=== PATIENT | male | born 1955 | race Caucasian/White ===

== ENCOUNTER 2018-01-14 06:58 | Day surgery (SDC) | payer OTHER, SELFPAY ==
[2018-01-14] VITALS (11 sets, daily range): BP systolic 90–139; BP diastolic 56–87; PULSE 47–60; RESP 12–18; TEMP 35.9–36.3; O2SAT 4–100; BMI 18.0
--- NOTE | 2018-01-14 08:18 | PCM.HP.STD ---
Problem List (1) Screening for intestinal cancer Status: Acute History of Present Illness Date of Admission: 01/14/18 The patient is a 62 year old M who presents for screening colonoscopy. His last colonoscopy was 10 years prior. He enjoys good health. He denies any change of bowel habits. No bright red blood per rectum or melena. No family history of colon cancer. Past Medical History Allergies No Known Allergies Allergy (Verified 01/14/18 07:14) Home Medications: Ambulatory Orders Medication Instructions Recorded Cholecalciferol (Vitamin D3) 2,000 unit PO DAILY 01/12/18 [Vitamin D3] Cyanocobalamin (Vitamin B-12) 3,000 mcg PO DAILY 01/12/18 [Vitamin B-12] Green Tea Nimmons Extract [Green Tea 150 mg PO DAILY 01/12/18 Extract] Multivitamin [Multiple Vitamins] 1 each PO DAILY 01/12/18 Surgical History: mastectomy - Lateral knee arthroscopy and meniscus repair Smoking Status: Never smoker Tobacco Use: Non-smoker Review of Systems Constitutional: Denies: Anorexia Eyes: Denies: Blurred vision HEENT: Denies: Difficulty Hearing Cardiovascular: Denies: Chest Pain, Claudication Respiratory: Denies: Cough Gastrointestinal: Denies: Abdominal Pain Genitourinary: Denies: Dysuria Musculoskeletal: Denies: Arm Pain VTE Information - Inpt Only VTE Present on Admission: No Patient Problems: Active and Suspected Problems Screening for intestinal cancer (Acute) - Physical Exam General: Alert, Oriented x3, Cooperative, No apparent distress HEENT: Atraumatic Oral: Moist Mucosa Neck: Supple Lungs: Clear to auscultation Cardiovascular: Regular rate, Regular Rhythm Abdomen: Bowel Sounds Present, Non Tender Extremities: No clubbing Skin: No rashes Musculoskeletal: No Tenderness to Palpation of Joints or Extremities Neurological: Cranial nerves II-XII grossly intact Vital Signs Temp Pulse Resp BP Pulse Ox 96.6 F L 60 12 116/81 H 100 01/14/18 07:16 01/14/18 07:16 01/14/18 07:16 01/14/18 07:16 01/14/18 07:16 Oxygen Delivery Method Room Air Weight: 125 lb 10.616 oz Body Mass Index (BMI) 18.0 Assessment/Plan All Active Problems Screening for intestinal cancer (Acute) I plan to proceed with colonoscopy with possible biopsy or polypectomy is indicated. He is aware the technique, benefits, risks, alternatives. We will proceed as noted. He does present via our open access program today. Primary care physician is Dr. Yrn Esteban M.D., F.A.C.S.
--- NOTE | 2018-01-14 08:40 | PCM.OPRPT ---
Problem List (1) Screening for intestinal cancer Status: Acute Report of Operation Date of Procedure: 01/14/18 Pre-Operative Diagnosis: Screening for intestinal cancer Post-Operative Diagnosis: Grade 2-3 internal hemorrhoids Surgery/Procedure Performed:: Colonoscopy Description of Surgical Findings:: .Informed consent was obtained. 62-year-old gent was taken to the endoscopy suite. He was placed in left lateral decubitus position. Throughout the procedure in aliquots he received total 100 mg Demerol and 4 mg of Versed as intravenous sedation. Digital rectal exam demonstrated at least 2+ internal hemorrhoids. The prostate was 1+ smooth. No mass lesions. Flexible colonoscope inserted and advanced quite tortuous sigmoid colon. The scope was advanced through the transverse colon with transabdominal pressure was advanced to the ascending colon and cecum. The cecum and ileocecal valve area was achieved. Bowel prep was good there was still liquid stool throughout the colon but that could be aspirated. The serum cecum ileocecal valve was inspected the scope was carefully withdrawn from the ascending transverse descending colon. Visualization of the descending sigmoid somewhat difficult due to the extreme tortuosity of the sigmoid colon. Did not see any gross mucosal defects. The scope could not be retroflexed within the rectum due to a small rectal pouch. Internal hemorrhoids noted at least 2+. Excess fluid and air was aspirated free the procedure was completed with the patient tolerating it well. Impression Grade 2 internal hemorrhoids without active bleeding. Tortuous sigmoid colon Previous colonoscopy was 10 years prior. Next colonoscopy for screening recommended in 10 years. Cc: Dr. Yrn Esteban M.D., F.A.C.S. The scope was inserted at 0825. The cecum was reached at 0831. The procedure was completed at 0838. Type of Anesthesia:: IV Sedation
== END 2018-01-14 11:07 | disposition home or self-care (01) ==
LOC: EN 06:59 → AC 07:00
PROVIDERS: Family Provider Family Medicine; PCP Family Medicine; Visit Provider Surgery
PROC: 0DJD8ZZ Inspection of Lower Intestinal Tract, Via Natural or Artificial Opening Endoscopic (ICD-10-PCS; CPT 45378; principal; 2018-01-14 07:55)
DX: Z12.11 Encounter for screening for malignant neoplasm of colon (principal); K64.8 Other hemorrhoids
CPT/HCPCS: 45378; 99152; 99153; J7120

== ENCOUNTER 2018-11-17 10:00 | Outpatient (RCR) | payer OTHER, SELFPAY ==
--- NOTE | 2018-11-01 07:07 | HP.PTEVAL_ITS ---
Patient's Visit Information CRISSY SALGADO is a 63 year old M referred to Physical Therapy by Dariel Chaidez MD with a diagnosis of R knee OA, R medial epicondylitis, L lateral epicondylitis. Date of Evaluation: 10/27/18 Physical Therapist: Todd Galvez DPT - Visit Plan Frequency: 2-3x /Week Duration: 4-6 Weeks Plan: Start with OKC quad and hip strengthening, progress gym exercises that are not painful. Add in wrist stretching, US, graston and progress to eccentric strengthening as tolerated. - Subjective Findings: Pt. is here today for his initial evaluation with diagnosis of R knee OA, R medial epicondylitis and L lateral epicondylitis. Pt. reports having similar elbow problems previously, but never this bad. Pt. 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 Pain extends to his wrists as well. Pt. has tried chiropractor, laser therapy and stretching. Pt. has beend stretchign for weeks now, with minimal change. Pt. also has had some mild knee pain, with xray showing degenerative changes (moderate) to his R knee. Pt. reprots increased pain with walking and gym exercises with his R knee. Pt. likes to work out at the gym and go on recreational walking. He is hopeful to reduce symptoms in order to get back to all of these activiteis without limitations. - Pain R medial elbow Pain Intensity (Out of 10): 3 Pain Intensity Range: 0, 6 L lateral elbow Pain Intensity (Out of 10): 2 Pain Intensity Range: 0, 6 R knee Pain Intensity (Out of 10): 1 Pain Intensity Range: 0, 3 - Objective POSTURE: Pt. has fairly normal posture in stance, slight FH with rounded shoulders. PALPATION: Pt. has some mild medial knee pain with palpation to femoral condyle. Pt. has pain at R medial epicondyle and along wrist flexor group and L lateral epicondyle. NEURO: Normal sensation and DTR. ROM: Pt. has tight bilateral wrist flexors and extensors both causing increased soreness. Pt. has good R knee ROM with mild increase in symptoms with end range ext and flexion. MMT: RLE- ankle 5/5 throughout; knee- ext 5-/5, flexion 5/5; hip- flexion 5-/5, abd 4+/5, ext 4+/5. Wrist strength- 5/5 throughout; R real estate photographer- 45#, L real estate photographer- 44#. - Goals Goal 1:: Pt. to be I with HEP. Goal Time Frame: 4-6 Weeks Goal 2:: Pt. to have full wrist ROM without increase in symptoms of B wrists. Goal Time Frame: 4-6 Weeks Goal 3:: Pt. to have increased R LE strength by 1/2 grade of all effected musculature. Goal Time Frame: 4-6 Weeks Goal 4:: Pt. to complete all gym exercises without increase in symptoms. Goal Time Frame: 4-6 Weeks Goal 5:: Pt. to be able to complete all UE ADLs without increase in symptoms. Goal Time Frame: 4-6 Weeks - Rehabilitation Potential Physical Therapy Diagnosis: Pt. has signs and symptoms consistent with R knee OA, R medial epicondylitis, L lateral epicondylitis. Pt. would benefit from PT to increased quad and hip strength with OKC and low load positioning, and decreased epicondylitis of B elbows. Rehabilitation Potential: Excellent - Anticipated Interventions Patient/Client Instruction: Educate patient on: Condition, Plan of Care, Risk Factors, Benefits of Fitness Program For the Purpose of:: To foster healthy habits, To improve decision making, To facilitate caregiver knowledge, To improve self management, To prevent re- injury, To improve ability to perform tasks related to life management, To improve tolerance to ADL's Therapeutic Exercise to Include: Strength training, Power training, Endurance training, Body mechanics, Postural training, Flexibilty training, Passive ROM, Active ROM, Dynamic Lumbar Stabilization, Scapular Strength/Stabilization For the Purpose of:: To decrease pain, To decrease swelling/inflammation, To increase ROM, To improve nutrient delivery to tissue, To increase oxygenation perfusion, To improve muscle performance and motor function, To improve ability to perform ADL's, To improve health of tissue, To decrease soft tissue restriction, To increase flexibility/ROM, To improve endurance Manual Therapy Techniques to Include: Trigger point massage, Mobilization, Functional dry needling, Soft tissue mobilization For the Purpose of:: To decrease pain, To decrease swelling/inflammation, To increase ROM, To improve nutrient delivery to tissue, To decrease soft tissue restriction, To increase flexibility/ROM IF ES: Yes Ultrasound (thermal/non thermal): Yes For the Purpose of:: To decrease pain, To decrease swelling/inflammation, To increase ROM, To improve nutrient delivery to tissue, To improve muscle performance and motor function Thank you for the opportunity to evaluate your patient. For Medicare and Medicare HMO plans, please review the plan of care and approve it. It will need to be FAXED BACK to us at [phone] for Medicare purposes. For Medicare only, by signing this I certify the plan of care. Please let me know if there are questions or concerns regarding this plan of care. Physician Signature: Date:
--- NOTE | 2018-11-21 10:03 | HP.PTDCSUM ---
HP - PT D/C Summary It has been my pleasure to treat CRISSY SALGADO under orders from Dariel Chaidez MD, for the diagnosis of R knee OA, R medial epicondylitis, L lateral epicondylitis for a total of 5 visit(s). Discharge Date: 11/17/18 Please see the following information for a summary of their discharge status. - Subjective Subjective: PT. reports overall no changes in his elbow symptoms. Pt. reports contiuned increase in pain in B wrists and elbows. Pt. met with his physician who told him to stop any activities that cause pain. Pt. also reports being prescribed zoloft now. Pt. has increased pain with any lifting and any gripping motions. - Pain R medial elbow Pain Intensity (Out of 10): 2 L lateral elbow Pain Intensity (Out of 10): 2 R knee Pain Intensity (Out of 10): 0 L medial elbow Pain Intensity (Out of 10): 2 - Overall Improvement % Improvement: 15 - Objective Objective/Function: Pt. has good ROM of bilateral elbows and wrists. PT. contiunes to reprot increased pain with any gripping motions, lifting motions and ADLs, ie mowing. He even reports increased pain with picking up a pen. Pt. reprots being frustrated with his symptoms and is to report back to physician at this point in time. - Goals Goal 1:: Pt. to be I with HEP. Goal Progress: Goal Met Goal 2:: Pt. to have full wrist ROM without increase in symptoms of B wrists. Goal Progress: Progressing Goal 3:: Pt. to have increased R LE strength by 1/2 grade of all effected musculature. Goal Progress: Goal Met Goal 4:: Pt. to complete all gym exercises without increase in symptoms. Goal Progress: Progressing Goal 5:: Pt. to be able to complete all UE ADLs without increase in symptoms. Goal Progress: Not Progressing - Plan Plan: Referred back to physician, if to return back to therapy, possible recommend seeing OT, hand therapy Christal Arnold for new insight on pathology. - D/C Information Discharge Comments: Pt. made good progresss with leg strengthening and HEP. Pt. has not made as good as progress with B elbows. Pt. has been treated with DFM/graston, eccentric strengthening, stretching and US. Pt. reports minimal to no change at this point in time. Pt. to be referred back to physician. If there are questions or concerns regarding this patient's physical therapy, please feel free to call me at [phone]. Thank you for the referral of this patient. Sincerely, OTTO CardenasT
== END 2018-11-17 19:00 | disposition home or self-care (01) ==
LOC: PT 10:00
PROVIDERS: Family Provider Family Medicine; PCP Family Medicine; Referring Provider Specialist; Visit Provider Specialist
DX: M77.01 Medial epicondylitis, right elbow (principal); M77.12 Lateral epicondylitis, left elbow; M77.11 Lateral epicondylitis, right elbow
CPT/HCPCS: 97035; 97110; 97140; 97161

== ENCOUNTER 2018-11-20 00:26 | Emergency (ER) | payer OTHER, SELFPAY ==
[2018-11-20] VITALS (7 sets, daily range): BP systolic 147–176; BP diastolic 85–90; PULSE 65–71; RESP 14–17; TEMP 36.8; O2SAT 99–100; BMI 18.7
--- NOTE | 2018-11-20 00:46 | EKG12_ITS ---
Test Reason : [facility] [place], [place] Blood Pressure : / mmHG Vent. Rate : 063 BPM Atrial Rate : 063 BPM P-R Int : 136 ms QRS Dur : 086 ms QT Int : 394 ms P-R-T Axes : 075 077 067 degrees QTc Int : 403 ms Normal sinus rhythm Normal ECG Confirmed by VENKATA MACK, ELISHA ([id number]), technical writer and editor HEIDE DOMINGUEZ ([id number]) on 11/21/2018 1:00:00 PM Referred By: CHRISTIANA Confirmed By:ELISHA HASTINGS MD
--- NOTE | 2018-11-20 00:48 | ED.RN ---
PT DENIES BEING SUICIDAL. HE REPORTS HE HAS BEEN MORE DEPRESSED, HE IS WORRIED ABOUT SOMETHING. PER FRIEND PT WORRIED THAT SOME DOCTOR IS GOING TO DOMINGUEZ HIM FOR SOMETHING. PT WITH FLAT AFFECT. PER DR. WOMACK PT DOES NOT NEED A SITTER.
[2018-11-20 01:11] LABS: Absolute Lymphocyte Count 1.19 X10^3/ul (0.83-4.51); Absolute Neutrophil Count 3.7 X10^3/uL (2.0-7.7); Basophil# 0.03 X10^3/uL; Basophil% 0.5 % (0-1); Eosinophil# 0.06 X10^3/uL; Eosinophils% 1.1 % (0-5); Hemoglobin 14.5 g/dl (13.0-16.5); Lymphocyte # 1.19 X10^3/ul (4.0); Lymphocyte % 21.4 % (19-41); Mean Corp Hgb Conc 34.5 g/gl (32-36); Mean Corpuscular Hgb 30.4 pg (27.0-32.0); Mean Corpuscular Volume 88.1 fL (80-94); Mean Platelet Vol. 8.5 fl (6.2-12.0); Monocyte# 0.56 X10^3/uL; Monocyte% 10.1 % (0-10); Neutrophil % 66.7 % (47-70); Platelet Count 214 K/mm3 (150-450); RBC Distribution Width CV 12.8 % (11.6-14.6); Red Blood Count 4.77 M/mm3 (4.6-6.2); White Blood Count 5.6 K/mm3 (4.4-11.0)
[2018-11-20 01:12] LABS: POSITIVE COUNT NO; POSITIVE DIFFERENTIAL NO; POSITIVE MORPHOLOGY NO
[2018-11-20 01:29] LABS: Anion Gap 4 (5-15); BUN 24 mg/dL (7-18); BUN/Creat Ratio 22.2 RATIO (10-20); Calcium,Total 9.2 mg/dL (8.5-10.1); Chloride 109 mmol/L (98-107); Creatinine, Serum 1.08 mg/dL (0.70-1.30); EST Glomerular Filtration Rate 73 mL/min (>60); Est Glom Filt Rate - Afr Amer 89 mL/min (>60); Estimated Creatinine Clearance 56.94 ml/min; Glucose 107 mg/dL (74-106); Potassium 3.9 mmol/L (3.5-5.1); Sodium Level 141 mmol/L (136-145)
[2018-11-20 01:39] LABS: Amphetamine Urine VISTA NEGATIVE (<1000 ng/mL); Barbiturate Urine VISTA NEGATIVE (< 200 ng/mL); Benzodiazepine Urine VISTA NEGATIVE (< 200 ng/mL); Cocaine Urine VISTA NEGATIVE (< 300 ng/mL); Ecstacy Urine VISTA NEGATIVE (< 500 ng/mL); Methadone Urine VISTA NEGATIVE (< 300 ng/mL); PCP Urine VISTA NEGATIVE (< 25 ng/mL); THC Urine VISTA NEGATIVE (< 50 ng/mL); Vista UDS pH Range 6
[2018-11-20 02:02] LABS: Alcohol, Blood (Medical)-Serum < 3.0 mg/dL
--- NOTE | 2018-11-20 02:06 | CT_ITS ---
STUDY: CT BRAIN WITHOUT CONTRAST REASON FOR EXAM: Male, 63 years old. Mental status change RADIATION DOSAGE (If Supplied By Facility): CTDIvol = ( 4.99 ) mGy, DLP = ( 812.98 ) mGycm TECHNIQUE: Transaxial CT imaging of the brain was performed without administration of intravenous contrast material. Individualized dose optimization techniques were used for this CT. COMPARISON: No relevant priors. FINDINGS: Normal soft tissue structures. Normal calvarium. Normal size ventricles and extra-axial spaces for the patient's age. Normal white matter tracts of the cerebral hemispheres. Normal basal ganglia and thalami. Normal brainstem. Normal cerebellum. There is no intracranial hemorrhage. There are no findings of an acute ischemic infarction. Normal visualized paranasal sinuses. CT/Brain/Head without Contrast IMPRESSION: Normal unenhanced CT scan of the brain. Electronically Signed: Maximino Contreras, at 2:38 EDT Tel , Service support ,
--- NOTE | 2018-11-20 02:36 | NURSING ---
CALLED AND TALKED TO ELMIRA FROM CRISIS AT [phone]
--- NOTE | 2018-11-20 02:43 | ED.DCSUM_ITS ---
- ER Visit Summary Date of Service: 11/20/18 Chief Complaint: Depression History of Present Illness: The patient is a 63 M who presents with depression. This is been progressive over 2 months. He denies any acute changes that brought him in tonight. He denies suicidal thoughts or plan. He denies homicid al thoughts. He did start Zoloft about 4 days ago. He states he is depressed because his family lives out of state. Neighbor who is a psychologist also states that he has had some rationality and paranoia. He is concerned that he is going to be sued by a doctor that he said something negative about. Patient denies any recent medical illness and review of systems otherwise negative. Except for a history of tendinitis and carpal tunnel he denies any other medical history. Physical Examination: Blood pressure 176/87 vitals otherwise normal Moist mucous membranes Heart regular rate and rhythm Lungs clear Abdomen soft Alert Blunted affect, poverty of speech, psychomotor retardation Test Results: EKG shows sinus rhythm at a rate of 63. CBC BMP unremarkable. Urine drug screen and alcohol negative. CT the head is normal. Emergency Department Course and Treatment: Patient appears to be severely depre ssed. Patient was evaluated by crisis. We do not feel he is able to adequately care for himself in his current state. He is borderline catatonic. Plan at the time of this dictation is transfer for further psychiatric care. Treatment Plan: [] Disposition: Transfer Impression: Severe depression This note was generated with [employer] dictation software. It may contain incorrect words, spelling, and punctuation that were not noted in review of the chart prior to signing ED Disposition - Plan for ED Patient: Referrals: Yrn Macedo MD [Primary Care Provider] -
--- NOTE | 2018-11-20 06:10 | NURSING ---
ACCEPTED TO [facility] [address]. PARMAR [phone] REPORT
== END 2018-11-20 08:09 ==
PROVIDERS: Emergency Provider Emergency Medicine; Family Provider Family Medicine; PCP Family Medicine
DX: F32.9 Major depressive disorder, single episode, unspecified (principal)
CPT/HCPCS: 36415; 70450; 80048; 80307; 80320; 85025; 93005; 99285; G0480

== ENCOUNTER 2018-12-22 10:00 | Outpatient (RCR) | payer OTHER, SELFPAY ==
[2018-11-20 00:29] VITALS: BMI 18.7
--- NOTE | 2018-12-07 14:18 | HP.OTEVAL_ITS ---
Patient's Visit Information CRISSY SALGADO is a 63 year old M, referred to Occupational Therapy by Dariel Chaidez MD, with a diagnosis of right medial/ left lateral epicondylitis. 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 pain is sometimes and without pain. pt states works full- time. 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 Pt would like to return to PLOF - ADLs Comments: pt states his is doing all the horse care and barn work, lifting hay maria antonia and muck buckest. pt state he does use a riding floral specialist (zero turn) when mowing the grass and this takes about 2 hours. - Pain right elbow pain 0 Pain Intensity Range: 5 right wrist pain 0 Pain Intensity Range: 0, 2 left wrist 2 Pain Intensity Range: 4 left elbow 1 Pain Intensity Range: 1, 2 - ROM ROM Comments: pt demo ROM WNL - Strength Forearm: rigth/ left 4+/5 Screw Machine Operator Single Spindle: right 50 straight 60 left bent 60 staight 65# Lateral Pinch: right 20 left 18 Tripod Pinch: right 14# left 12# with pain at CMC - Sensation Sensation Comments: tingling at night uses wrist braces - Goals Goal:: PT will demo an increase in cake mixer strength by 20# to increase independent with basic occupations of daily living to return pt to PLOF by D/C. Goal:: Pt will report pain no greater than 1/10 with use of affected hand with BADLs and IADLs by d/c. Goal:: Pt will demo understanding of work/lifting and carry ergonomics to decrease stress on tendons to increase pts independent with ADLs, IADLS and work tasks by d/c. - Rehabilitation General Assessment: Therapist was unable to elict elbow pain with resisistive s up/pron or wrist flex/ext of either elbow- palpation at epicondyles was uncomfortable to pt. pt expressing pain at bilateral cmc regions. Pain has limited pts ability to perform home mtg and yard work as ind. as prior. PT would benefit from skilled OT services 2-3x week for 4 weeks. Today therapist ed. pt on do's and dont's of Lat. epi, wrist positioning with mowing and lifting of items. Pt ed. in forearm (extensor) stretch, use of counterforce brace and ice. pt aslo ed on lift pull/push ergo.positions. pt given handout and demo understanding of HEP and agree to POC. Rehabilitation Potential: Good - Anticipated Interventions Anticipated Interventions: Strengthening, Triggerpoint Release, Modalities, Orthoses, Joint Protection/Energy Conservation, Ergonomic Education - Visit Plan Frequency: 2x /Week Duration: 4-6 Weeks TEXT: Thank you for the opportunity to evaluate your patient. For Medicare and Medicare HMO plans, please review the plan of care and approve it. It will need to be FAXED BACK to us at [phone] for Medicare purposes. Please let me know if there are questions or concerns regarding this plan of care. Physician Signature: Dat e:
--- NOTE | 2019-01-09 12:01 | HP.OT.NRP ---
HP - Discharge Summary - Patient Information CRISSY SALGADO was seen in my office for initial evaluation on 12/06/18. The following Plan of Care was established for this patient: Plan: cont with gym eq. - Anticipated Interventions Anticipated Interventions: Strengthening, Triggerpoint Release, Modalities, Orthoses, Joint Protection/Energy Conservation, Ergonomic Education This patient was last seen in our office 12/22/18. Pertinent comments regarding their Occupational therapy will appear below: Pt was seen for 5 OT visits- pt made great progress and spoke to therapist last week and he agreed he was 85% better with his tasks. pt started his health and wellness program back up and states he is feeling better. pt d/c meeting goals in OT At this point I will be discontinuing this patient from occupational therapy. I would be happy to see this patient again in the future if found appropriate by the physician. Thank you! Rowena Wiliknson, OTR/L, CHT
== END 2018-12-22 19:00 | disposition home or self-care (01) ==
LOC: OT 10:00
PROVIDERS: Family Provider Family Medicine; PCP Family Medicine; Referring Provider Specialist; Visit Provider Specialist
DX: M77.01 Medial epicondylitis, right elbow (principal); M77.12 Lateral epicondylitis, left elbow
CPT/HCPCS: 97035; 97110; 97140; 97166; 97530

== ENCOUNTER 2019-08-05 16:06 | Emergency (ER) | payer OTHER, SELFPAY ==
[2018-11-20 00:29] VITALS: BMI 18.7
[2019-08-05 16:07] VITALS: BP 143/83; PULSE 72; RESP 17; TEMP 37.1; O2SAT 100; BMI 23.2
[2019-08-05 16:21] VITALS: RESP 16
--- NOTE | 2019-08-05 16:36 | CT_ITS ---
STUDY: CT ABDOMEN AND PELVIS WITHOUT CONTRAST REASON FOR EXAM: Male, 64 years old. RT FLANK PAIN, N/V, NO PREV SURG OR HX OF [place] RADIATION DOSAGE (If Supplied By Facility): CTDIvol = ( 6.17 ) mGy, DLP = ( 292.84 ) mGycm TECHNIQUE: Transaxial images were obtained from the dome of the diaphragm to the symphysis pubis without oral contrast, and without intravenous contrast. Sagittal and coronal images were reconstructed. Individualized dose optimization techniques were used for this CT. COMPARISON: None. FINDINGS: The visualized lung bases are unremarkable. The visualized portions of the heart are within normal limits. Normal liver. Normal gallbladder and extrahepatic biliary system. Normal spleen. Normal pancreas. Normal bilateral adrenal glands. Bilateral renal calculi are identified measuring up to 4 mm on the right and 3 mm on the left. There is mild right hydronephrosis with a 4 mm calculus in the proximal right ureter (L3 vertebral body level). Parapelvic renal cysts are demonstrated. Normal visualized stomach. Normal small intestine. Normal colon. There is non-visualization of the appendix. There is diffuse atherosclerotic calcification of the abdominal aorta, without a demonstrated aneurysm. Normal inferior vena cava. Normal retroperitoneum. Normal urinary bladder. There is enlargement of the prostate gland. Normal abdominal wall. Normal osseous structures. CT/Abdomen/Pelvis without Cont IMPRESSION: 1. Proximal right ureter calculus with mild hydronephrosis. 2. Bilateral nephrolithiasis. Electronically Signed: Salvador Hawkins MD (Brooks) at 17:19 EDT , Service support ,
[2019-08-05] MEDS: Ketorolac 30 MG/ML Syringe IV (16:52)
[2019-08-05] MEDS: Ondansetron 4 MG/2 ML Vial IV (16:53)
[2019-08-05 16:59] LABS: Bacteria 0 SEEN /hpf (None Seen); Mucous, Urine 0 SEEN /hpf (<or=2+); White Blood Cells 0 SEEN /hpf (0-5)
--- NOTE | 2019-08-05 17:01 | ED.VISSUMM ---
- ER Visit Summary Date of Service: 08/05/19 Chief Complaint: Right flank pain History of Present Illness: The patient is a 64 M presenting with right flank pain. He states this started this morning around 9 AM. He has right-sided flank pain that radiates to the right lower quadrant. He has associated nausea vomiting. He denies urinary complaints. Denies fever. No history of kidney stones. Physical Examination: Vitals are stable. Patient is afebrile. Alert no acute distress. HEENT exam is unremarkable. Neck is supple. Lungs are clear and equal bilaterally. Heart is regular rate and rhythm. Abdomen is soft nontender nondistended. Right CVA tenderness Extremities are unremarkable. Skin is warm and dry. No focal neurologic deficit. Remainder of exam is unremarkable. Emergency Department Course and Treatment: Patient drove himself to the ED. He was given IV fluids, Toradol, Zofran. CT abdomen pelvis shows proximal right ureter calculus with mild hydronephrosis. Bilateral nephrolithiasis. Urinalysis shows 0 white blood cells, 0-5 red blood cells. On reevaluation, patient's pain is controlled. He is given prescription Collins and Zofran for home. Advised to follow-up with Dr. Najera. Advised return to ED for worsening complaints. Disposition: Discharge home Impression: Urolithiasis This note was generated with [employer] dictation software. It may contain incorrect words, spelling, and punctuation that were not noted in review of the chart prior to signing ED Disposition - Plan for ED Patient: Instructions: KIDNEY STONE w/ Colic Prescriptions: Hydrocodone Bitart/Apap 5-325 [Collins 5MG-325MG] 1 tab PO Q6H PRN PRN 3 Days #10 tab PRN Reason: Pain Prescription Printed Ondansetron [Zofran Odt] 4 mg PO Q8H PRN PRN #10 tab PRN Reason: Nausea Prescription Printed Referrals: Yrn Macedo MD [Primary Care Provider] - Mahesh Najera MD [STAFF PHYSICIAN] -
[2019-08-05 17:15] LABS: Color, Urine Yellow (Yellow); Glucose, Dipstick Normal (Normal); Leukocyte Esterase-Dipstick Negative /ul (Negative); Nitrite-Dipstick Negative (Negative); Occult Blood-Urine 10 /ul (Negative); Protein-Dipstick Negative (Negative); Urine Bilirubin Dipstick Negative (Negative); Urine Clarity Clear (Clear); Urine Urobilinogen Normal (Normal)
[2019-08-05 17:33] LABS: Ketone-Dipstick 150 mg/dl (Negative)
[2019-08-05 17:35] LABS: Red Blood Cells-Urine 0-5 SEEN /hpf (0-5); Squamous Epithelial Cells - UA 0-5 SEEN /hpf (0-5)
--- NOTE | 2019-08-05 17:49 | DCINST.ED_ITS ---
ED Disposition - Plan for ED Patient: Instructions: KIDNEY STONE w/ Colic Prescriptions: Hydrocodone Bitart/Apap 5-325 [[place] 5MG-325MG] 1 tablet PO Q6H PRN PRN 3 Days #10 tablet PRN Reason: Pain Ondansetron [Zofran Odt] 4 mg PO Q8H PRN PRN #10 tablet PRN Reason: Nausea Referrals: Yrn Macedo MD [Primary Care Provider] - Mahesh Najera MD [STAFF PHYSICIAN] -
[2019-08-05 18:10] VITALS: BP 131/72; PULSE 73; RESP 18
== END 2019-08-05 18:23 | disposition home or self-care (01) ==
LOC: ED 17:35
PROVIDERS: Emergency Provider Emergency Medicine; PCP Family Medicine
DX: N13.2 Hydronephrosis with renal and ureteral calculous obstruction (principal)
CPT/HCPCS: 74176; 81001; 96374; 96375; 99284; A4216; J2405

== ENCOUNTER 2019-08-15 12:05 | Day surgery (SDC) | payer OTHER, SELFPAY ==
[2019-08-15 12:30] VITALS: BP 165/79; PULSE 115; RESP 18; TEMP 36.9; O2SAT 100; BMI 22.8
[2019-08-15] MEDS: Lactated Ringers 1,000 ML 100 ML IV (12:43)
--- NOTE | 2019-08-15 14:15 | DCINST_ITS ---
Discharge Diet: Light diet - advance as tolerated Discharge Activity: Return to Normal Activity, May not drive while taking narcotic pain medications. Call your doctor if your incision/area has: Sudden Increased Bleeding Instructions: Treating Kidney Stones: Ureteroscopic Stone Removal Allergies/Adverse Reactions: Allergies No Known Allergies Allergy (Verified 08/15/19 12:23) Medications to take at Discharge Green Tea [place] Extract [Green Tea Extract] 150 mg PO DAILY 01/12/18 Multivitamin [Multiple Vitamins] 1 each PO DAILY 01/12/18 Glucosamine HCl 1,000 mg PO DAILY 11/20/18 [place]-3 Fatty Acids [Fish Oil] 1,000 mg PO DAILY 11/20/18 Hydrocodone/Acetaminophen [Hydrocodon-Acetaminophen 5-325] 1 ea PO Q6H PRN PRN 08/14/19 Ibuprofen [Advil] 200 mg PO PRN PRN 08/14/19 Turmeric 2 cap PO DAILY 08/14/19 Ciprofloxacin [Cipro] 500 mg PO BID #6 tab 08/15/19 Hydrocodone/Acetaminophen [[place] 5-325 Tablet] 1 each PO Q4H PRN PRN 5 Days #14 tablet 08/15/19 The following prescriptions were given: Ciprofloxacin [Cipro] 500 mg PO BID #6 tab Transmission Status: Pending to [facility] Hydrocodone/Acetaminophen [[place] 5-325 Tablet] 1 each PO Q4H PRN PRN 5 Days #14 tablet PRN Reason: Pain Score 1-10/10 Transmission Status: Sent to [facility] Primary Care Physician: Yrn Macedo MD [Primary Care Provider] - Test Results: Test results from this visit will be discussed in further detail at your follow- up appointment, if applicable. Please Follow Up With: Mahesh Najera MD When: please call to make an appointment.
[2019-08-15] MEDS: Cefazolin 2 GM in 0.9% Normal Saline 100 ML IV (14:17)
--- NOTE | 2019-08-15 14:30 | CALC_PTH ---
PATIENT: CRISSY SALGADO LOC: [facility] [place] U#:[id number] AGE/SX: 64/M ROOM: RE08/15/[address]: Dr. Mahesh Najera MD : 1955 BED: DIS: 08/15/2019 SPEC #: [id number] RECD: 08/16/19 07:11 STATUS: KAREN GUALLPA #: [id number] ENRRIQUE: 08/15/19 14:[address]: Mahesh Najera DEPT: SURGICAL PATHOLOGY RECD BY: Jose Loyola ENTERED: 08/16/19 08:57 SP TYPE: Calculi OTHR DR: Dr. Yrn Macedo MD Tissues: CALCULI Procedures: Surgery Specimen Level I HEADER OPERATION: Cystoscopy, right ureteroscopy, right retrograde, laser PRE-OP DIAGNOSIS: Right ureteral calculi with obstruction TISSUE SUBMITTED: Right ureteral calculus for analysis GROSS DIAGNOSIS Right ureteral calculus, removal: Unremarkable calculus (gross diagnosis only). AM:jaylen 08/17/19 COMMENT The calculus is submitted in its entirety for chemical stone analysis. The results from this study will be reported separately. GROSS DESCRIPTION Received is one container labeled with the patient's name and designated right ureteral calculus. The specimen consists of a single irregular fragment of dark christesnen calculus measuring 0.3 x 0.2 x 0.2 cm. The calculus is submitted in its entirety for chemical stone analysis. / AM:jaylen 08/16/19 CPT: 91729
--- NOTE | 2019-08-15 15:02 | PCM.OPRPT ---
Problem List (1) Right distal ureteral calculus Status: Acute Report of Operation Date of Procedure: 08/15/19 Pre-Operative Diagnosis: Obstructing right ureteral calculi and right renal calculi Post-Operative Diagnosis: Same Surgery/Procedure Performed:: Cystoscopy, balloon dilation of the right ureter, right ureteroscopy laser lithotripsy of stones, right retrograde pyelogram interpretation fluoroscopic images, and right stent placement. Description of Surgical Findings:: Patient presented to the hospital for treatment of a calculus 6 millimeters in size in the distal ureter and also some small fragments in the right kidney. We discussed how the procedure is done what to expect afterwards he probably will need a stent. We discussed the discomfort that the stent would cause, burning with urination, frequency, urgency, pain in the kidney, blood in the urine. We also discussed the risk of the procedure including bleeding and infection and the risk of anesthesia. We discussed the very rare risk of injury or scar tissue development in the ureter after this procedure. We also discussed the possibility that the stone would not be able to be treated completely and he may need multiple procedures. After discussion with the patient in the preoperative area also I saw the patient in the office discussing the same outcomes the patient signed the consent form, and all the patient's questions were answered. The patient was taken back to the operating room after smooth induction of general anesthesia and the patient was placed supine on the table. We then repositioned the patient in dorsolithotomy position with the legs in stirrups. We made sure all his pressure points were padded. The patient had SCDs on for DVT prophylaxis and was loaded with IV antibiotics prior to the procedure. Imaging was reviewed on his recent CAT scan. I went into the bladder with a 21 [place]er rigid cystoscopy ureteroscopy after gentle dilation of the urethra. The urethra findings were normal . The prostate findings were mild bilateral obstruction . Inside the bladder the trigone was inspected left and right montelongo of the bladder and posterior and dome of the bladder was inspected and the main findings in the bladder was normal no tumors or stones . I then cannulated the right ureter and used a wire to go up to the ureter then over the wire I performed balloon dilation of the distal ureter with a ureteral balloon dilator, the balloon dilator size was 15 [place]er . I then left the wire in place and over wire I went up with a ureteroscope. I was able to reach the stone successfully and then lasered the stone using a laser fiber and perform laser lithotripsy on the stone until the stone broke up into tiny fragments also laser the stone in the kidney. After successful complete lasering of the stones and its fragments then I worked my way out of the ureter and over the wire I then loaded up a stent and advanced a stent up into the kidney. A retrograde pyelogram was then performed looking at the contrast images to assist in placement of the stent next and confirmed the location of the kidney and the ureter I then pulled on the wire and the stent coiled in the kidney and bladder in good position. I then drained the bladder with the cystoscope the patient's anesthetic was reversed he will be given pain medicine antibiotics and instructions to call the office for an appointment to remove the stent. Patient's anesthetic is being reversed and is taken back to the PACU in stable condition. Type of Anesthesia:: General Drains: 6 [place]er by 26 cm stent right side - Admit VTE Documentation VTE Present on Admission: No VTE Mechan Device Prophylaxis: SCD's
[2019-08-15 15:08] VITALS: BP 125/74; BP 165/79; PULSE 74; RESP 16; TEMP 36.6; O2SAT 98
[2019-08-15 15:15] VITALS: BP 138/75; BP 165/79; PULSE 81; RESP 16; O2SAT 100
[2019-08-15 15:30] VITALS: BP 144/74; BP 165/79; PULSE 84; RESP 16; TEMP 37.5; O2SAT 99
[2019-08-15 16:01] VITALS: BP 162/81; BP 165/79; PULSE 79; RESP 18; TEMP 36.8; O2SAT 99
== END 2019-08-15 16:22 | disposition home or self-care (01) ==
LOC: SDC 12:06 → AC 12:07
PROVIDERS: PCP Family Medicine; Referring Provider Urology; Visit Provider Urology
PROC: 0TJ98ZZ Inspection of Ureter, Via Natural or Artificial Opening Endoscopic (ICD-10-PCS; CPT 52352; principal; 2019-08-15 14:20)
DX: N20.2 Calculus of kidney with calculus of ureter (principal); Z87.442 Personal history of urinary calculi
CPT/HCPCS: 52356; 76000; 82360; 88300; J7120; C1726; C1769; C2617; J2405

== ENCOUNTER 2021-06-16 11:42 | Outpatient (CLI) | payer MEDICARE, SELFPAY ==
--- NOTE | 2021-06-16 11:52 | RAD_ITS ---
EXAM: XR ABDOMEN, 1 VIEW : 1955 CLINICAL INDICATION: personal history of urinary calculi TECHNIQUE: Frontal supine view of the abdomen/pelvis. This report was created using [employer] report generation technology. COMPARISON: None. FINDINGS: LOWER THORAX: No acute pathology. GASTROINTESTINAL TRACT: Unremarkable. Non-obstructive. No bowel or stomach distention. ORGANS: 4 mm calcific density in the expected location of the right renal collecting system. 3 mm calcific density in expected location of the left renal collecting system. No organomegaly. BONES/JOINTS: No acute pathology. SOFT TISSUES: No acute pathology. RAD/Abdomen Single View IMPRESSION: Evidence of bilateral nephrolithiasis. at 0215 Reported and signed by: Evgeny Baron MD Electronically Signed: Evgeny Baron MD at 2:15 EST Tel , Service support ,
== END 2021-06-16 23:59 | disposition short-term general hospital (02) ==
LOC: RAD 11:49
PROVIDERS: PCP Family Medicine; Referring Provider Urology; Visit Provider Urology
DX: N20.0 Calculus of kidney (principal); Z87.442 Personal history of urinary calculi
CPT/HCPCS: 74018

== ENCOUNTER 2021-06-24 09:57 | Outpatient (CLI) | payer MEDICARE, SELFPAY ==
[2021-06-24 11:07] LABS: EXAGEN MAILED SPECIMEN
[2021-06-24 15:21] LABS: Color, Urine Yellow (Yellow); Glucose, Dipstick Normal (Normal); Ketone-Dipstick 15 mg/dl (Negative); Leukocyte Esterase-Dipstick Negative /ul (Negative); Nitrite-Dipstick Negative (Negative); Occult Blood-Urine 10 /ul (Negative); Protein-Dipstick Negative (Negative); Urine Bilirubin Dipstick Negative (Negative); Urine Clarity Clear (Clear); Urine Urobilinogen Normal (Normal)
[2021-06-24 15:24] LABS: Absolute Lymphocyte Count 0.78 X10^3/uL (0.83-4.51); Absolute Neutrophil Count 3.7 X10^3/uL (2.0-7.7); Basophil# 0.02 X10^3/uL; Basophil% 0.4 % (0-1); Eosinophil# 0.02 X10^3/uL; Eosinophils% 0.4 % (0-5); Hematocrit 43.8 % (40-54); Hemoglobin 14.5 g/dL (13.0-16.5); Lymphocyte # 0.78 X10^3/ul (0.83-4.51); Lymphocyte % 15.7 % (19-41); Mean Corp Hgb Conc 33.1 g/dL (32-36); Mean Corpuscular Hgb 29.4 pg (27.0-32.0); Mean Corpuscular Volume 88.8 fL (80-94); Mean Platelet Vol. 9.4 fl (6.2-12.0); Monocyte# 0.42 X10^3/uL; Monocyte% 8.5 % (0-10); NRBC Flagged by Analyzer 0 % (0-5); Neutrophil # 3.72 X10^3/uL (2.7-7.7); Neutrophil % 74.8 % (47-70); Platelet Count 294 K/mm3 (150-450); RBC Distribution Width CV 12.7 % (11.6-14.6); RBC Distribution Width SD 41.3 fl (35.1-43.9); Red Blood Count 4.93 M/mm3 (4.6-6.2)
[2021-06-24 15:40] LABS: ALB/GLOB Ratio 1.1 RATIO (0.9-2.4); AST(SGOT) 20 U/L (15-37); Alanine Aminotransfer ALT/SGPT 25 U/L (16-61); Alkaline Phosphatase 99 U/L (45-117); Anion Gap 6 (5-15); BUN 17 mg/dL (7-18); BUN/Creat Ratio 19.1 RATIO (10-20); Calcium,Total 9.2 mg/dL (8.5-10.1); Chloride 103 mmol/L (98-107); Creatinine, Serum 0.89 mg/dL (0.70-1.30); EST Glomerular Filtration Rate 91 mL/min (>60); Est Glom Filt Rate - Afr Amer 110 mL/min (>60); Globulin 3.8 g/dL (2.2-4.2); Glucose 114 mg/dL (74-106); Potassium 4.1 mmol/L (3.5-5.1); Protein, Total 7.8 g/dL (6.4-8.2); Sodium Level 137 mmol/L (136-145)
[2021-06-24 15:52] LABS: Protein:Creat Ratio 47 mg/g CRE (0-200)
[2021-06-24 16:17] LABS: Partial Thromboplast Time 30.6 Seconds (24.1-36.2)
[2021-06-24 16:21] LABS: Hepatitis B Surface Antibody Non-Reactive; Hepatitis B Surface Antigen Non-Reactive (Nonreactive); Hepatitis C Antibody Non-Reactive (Nonreactive)
[2021-06-24 16:40] LABS: International Normalized Ratio 1.1; Prothrombin Time (Protime)PT. 13.2 SECONDS (11.7-14.9)
[2021-06-26 14:10] LABS: Dilute Prothrombin Time (dPT) 39.3 sec (0.0-47.6); Dilute Russell Viper Venom 35.3 sec (0.0-47.0); PTT-LA 32.1 sec (0.0-51.9); Thrombin Time 17.4 sec (0.0-23.0); dPT Confirm Ratio 0.94 Ratio (0.00-1.34)
[2021-06-26 15:08] LABS: Hexagonal Phase Phospholipid 4 sec (0-11); Thrombin Time 17.7 sec (0.0-23.0)
[2021-06-26 15:17] LABS: Interpretation Comment: (.)
== END 2021-06-24 23:59 | disposition short-term general hospital (02) ==
PROVIDERS: PCP Family Medicine; Referring Provider Internal Medicine Rheumatology; Visit Provider Internal Medicine Rheumatology
DX: M06.4 Inflammatory polyarthropathy (principal); R76.8 Other specified abnormal immunological findings in serum; M18.0 Bilateral primary osteoarthritis of first carpometacarpal joints; M17.0 Bilateral primary osteoarthritis of knee; F41.9 Anxiety disorder, unspecified; N40.0 Benign prostatic hyperplasia without lower urinary tract symptoms; N32.81 Overactive bladder
CPT/HCPCS: 36415; 80053; 81002; 82570; 84156; 85025; 85598; 85610; 85670; 85730; 86706; 86803; 87340

== ENCOUNTER 2021-08-04 08:30 | Outpatient (RCR) | payer MEDICARE, SELFPAY ==
--- NOTE | 2021-08-04 09:00 | BH.COMM ---
Communication Note - Communication with Client Communication Note: Met with patient and his . Completed intitial paperwork. No significant changes since pre-admission screening. Completed [place] Screening with low risk. No SI reported in past 2 years. Case discussed with Dr. Manjarrez with plan to admit to [facility] with tentative dx of F33.2. R/O Bipolar,
--- NOTE | 2021-08-04 10:05 | BH.SGPN.GN ---
Behaviors/Verbalizations/Mental Status: []Client alert and oriented, casually dressed and groomed. Eye contact good. Motor activity appropriate. Speech within normal limits. Affect congruent, mood anxious. Thoughts linear, logical, no signs of hallucinations or delusions. Client Response/Progress/Benefit: []Client responded well to session AEB listening attentively to others. Client nodded and took notes throughout group discussion identifying what makes up a support system, what weakens it, and the benefits of social support. This was client?s first day of IOP treatment. Client participated in experiential activity illustrating the importance of social support as well as modeling communication that strengthens support systems. Client was engaged throughout group problem solving and worked well with group members to complete activity. Appeared to benefit from increased knowledge of social support. Will continue IOP treatment to prevent decompensation and increase knowledge of healthy coping skills to improve daily functioning. Narrative Note: []
--- NOTE | 2021-08-04 11:15 | BH.SGPN.GN ---
Behaviors/Verbalizations/Mental Status: []Client alert and oriented, neatly dressed and groomed. Eye contact poor. Motor activity appropriate. Speech within normal limits. Affect constricted, mood anxious. Thoughts linear, logical, no signs of hallucinations or delusions. Client Response/Progress/Benefit: []pt was engaged during the activity in second group, but pt was quiet during this session. Pt processed emotions felt in the activity and how peers coped in the moment. Pt took notes during discussion on the types of support our supports can provide. Pt appeared highly anxious during group, so pt declined to share during discussion. Pt took notes throughout session. Pt seemed to benefit from identifying the type of support and how this support will aid in promoting overall mental wellness. Pt?s first day of IOP tx. Will continue IOP tx to prevent decompensation, gain healthy coping skills, and improve daily functioning. Narrative Note: []
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
--- NOTE | 2021-08-06 11:20 | BH.SGPN.GN ---
Behaviors/Verbalizations/Mental Status: []Client alert and oriented, casually dressed and groomed. Eye contact poor. Motor activity appropriate. Speech within normal limits. Affect flat, mood anxious. Thoughts linear, logical, no signs of hallucinations or delusions. Client Response/Progress/Benefit: []Client engaged in session AEB client listening attentively to peers and providing input. Attentive during psychoeducation on 4 zones of regulation. Client able to identify feelings and behaviors for each zone. Client struggled with completing the provided worksheet. Appeared easily overwhelmed. Client reported he needs to practice opposite action when in the blue zone by getting out of bed. Benefited from increased education on zones of regulation or stages of alertness for emotions and healthy coping skills to use for each zone. Will continue IOP tx to increase healthy coping, improve daily functioning and prevent decompensation.
[2021-08-06 11:21] VITALS: BP 139/82; PULSE 92
--- NOTE | 2021-08-06 13:15 | BH.PSY.EVA_ITS ---
Psychiatric Evaluation Initial Evaluation Initial Evaluation: Chief Complaint: [] I have had some medical issues. History of Present Illness: [] The patient is a 66-year-old male who has been for 42 years and is seen most of the time with his present as the patient is not a great historian right now due to the severity of his symptoms. They live in a house that they own with him and his . He has had worsening anxiety and depression since June 22, 2021. Cymbalta was restarted at that time and he feels that his anxiety is worsened on the Cymbalta as has his mood. The Cymbalta was last increased from 60 to 120 mg 6 days ago and they feel he is slightly worse in his anxiety and depression since then. He was referred to the IOP program by the counseling clinic because there was no appointment yet available for him. The patient saw his primary care doctor recently and his thyroid was checked and was normal. In addition the patient went the patient and his went to the emergency room at [facility] last night because the patient got down and agitated and was saying it is over, it is over. The says that the ER sent him home because they were coming to the IOP today and the says although they went last night he was given 0.5 mg of Ativan which did help him calm down greatly. In addition the says that the patient often says it is over in the past few months. In terms of recent health issues the patient had a sleep disorder test to rule out apnea but the test was inconclusive because he was not feeling rested. He has had some back pain and in June 2019 was found to have a kidney stone which she passed. In addition at the end of May he had some abnormal blood test and was referred to a seafood farmer who he saw on June 24 and a work-up was done and it was essentially negative except for some arthritis. The patient has a history of health anxiety in the past and he had a episode of severe depression in 2018. On November 20, 2018 the patient went to the emergency room and was admitted with depression with possible mild catatonia, delusions and disorganized thinking. The patient improved after being treated with Cymbalta at that time but he discontinued the medication in February 2019. Then the Covid pandemic hit and his anxiety worsen so he restarted his Cymbalta in August 2019. He then improved and so discontinued Cymbalta in February 2021. Then his symptoms worsened again and he restarted the Cymbalta in May 2021 but they do not feel the Cymbalta has helped his symptoms this time. He has recently become increasingly anxious and has panic attacks 2-3 times a day. He is unable to drive because he is fearful that he will harm someone if he drives. He is overwhelmed with worry and easily overwhelmed with small tasks. He has obsessive thinking and worry that he will be late or that his children will not do well because of the way he is. He is hard to converse with because he has an increased response latency. However the patient makes sense and has a good factually adequate except for slow processing ability and increased response latency. His memory also and recall is not normal. The patient does not appear to be definitively internally stimulated. He has negative rumination and makes negative statements such as I have ruined everything for everyone. Patient endorses feeling depressed, worried, hopeless and with low motivation. He feels guilty that he is unable to function. He is not enjoying anything he does. His appetite is somewhat decreased and he lost 6 pounds in the past 2 months. His sleep before trazodone and after trazodone really is about 4 to 5 hours a night which varies from 1 to 2 hours to 7 hours a night. He has low energy level and fatigue every day. Concentration is decreased also. He denies passive thoughts of ever. He denies suicidal ideation ever and denies ever having a plan for suicide. He also denies homicidal ideation, hallucinations or delusions. There may be minimal delusion of reference when he was watching a video online according to his but the patient is not aware of this. There is no history of self-harm. There is no history of meera or symptoms currently of meera. Current Psychiatric Medications: [] Cymbalta 120 mg p.o. daily (60 mg twice a day, dose increased from 60 mg 6 days ago and this gave him increased anxiety according to the and patient). Trazodone 100 mg p.o. nightly. BuSpar added 6 days ago. ER gave him 1 Ativan 0.5 mg last night and according to his this improved his anxiety. Past Psychiatric History: [] Patient has a history of 1 psychiatric admission in November 20, 2018 at [facility] for severe depression with possible catatonia and psychosis and suicidal ideation. The patient has no suicide attempts ever and has never had a plan for suicide. He is not he is on a wait list for to see a counselor and has no psychiatrist but does have a primary care doctor. His past medications include Zoloft and Cymbalta. The patient was first depressed in 2018 which was triggered by health concerns over having pain in his knees and wrists and was worried but was diagnosed with arthritis. He had counseling in 2019 after this admission he went for 2-3 sessions after discharge but did not feel it was very helpful. Substance Use History: [] No drug use. Non-smoker. No vaping. No drugs ever no marijuana and no rehab. No alcohol use. Allergies: [] No known allergies Medications: [] Psych meds plus vitamin and glucosamine Past Medical History: [] He has arthritis in his shoulder and possible neuropathy giving him leg pain. He has a history of a kidney stone in 2020. He has possible history of hyperactive bladder in May 2020 for which he was given trospium to take as needed but is not taking it recently. He had a prediabetic hemoglobin A1c in February 2021 that was like 5.5. No surgeries no other medical issues. Family Psychiatric History: [] His father at age 74 from possible Parkinson's disease. His mother of cancer of the pancreas possibly at age 84. He has a family history of 2 completed suicides by maternal first cousins. He has a daughter with anxiety who is treats herself with marijuana. Personal/Social History: [] The patient was born and raised in [place] and describes his childhood as I was raised on a farm. His says his upbringing was very strict and tenriism. His parents were and he says loving. There was no physical, verbal or sexual abuse ever. The patient was the oldest of 5 children and has a brother a sister 1 year younger, brother 2 years younger, a brother 5 years younger, and a sister 13 years younger and they are not very close. School was good for him and he obtained good grades. He graduated high school and then got a college degree in education. He then got a masters in education. 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 He is enjoying his shelter except for these 2 depressive episodes. His marriage is good and his is supportive and there is no conflict there. He enjoys reading and hiking with his . He has been unable to read well lately though. He got at age 23 and they have been for 42 years. They have 3 children who are in [place] and or not and 2 grandchildren who is a Skype with every week. His is 65 years old and is loving and supportive. 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 No arrests. Review of Systems: [] Some pain in his shoulders and arms and legs at times and some increased voiding which occurs at times. Vital Signs: [] Vital signs and physical findings are reviewed in the emergency room note and in the nurse's notes and updated in the patient was deemed medically able to participate in the IOP program. Mental Status Examination: [] The patient is a 66-year-old male who is seen wearing a mask due to the pandemic and is casually dressed and groomed with good hygiene. He has no psychomotor agitation or retardation. He is somewhat of a difficult historian because he has a slow response time. He does answer questions though incomplete sentences. Eye contact is good and speech is normal rate and rhythm rhythm and fluent with no pressure. It just takes him a longer time than normal to give a response. His thought process is organized and goal-directed just slightly slower than normal. His thought content: He does admit to being worried about the state of the world and worried about his ability to function. He doubts himself and has a hard time making decisions. There is no evidence of passive thoughts of , suicidal ideation, plan for suicide, thoughts of self-harm, homicidal ideation, or hallucinations. There is no evidence of thought blocking. There is evidence possibly of a minimal delusion of reference when the patient watches videos online but unable to be certain. Intelligence is above average. Reality testing is intact. Judgment is limited. Insight is limited. Impulsivity is moderate. Diagnoses: [] 1. Major depressive disorder, recurrent, severe without psychosis 2. Generalized anxiety disorder 3. Panic disorder 4. Rule out health anxiety disorder Plan: [] The patient and his were given the option of being Makayla Lopesy Reynaldo admitted to a psychiatric unit in order that he could be watched closely and have his medications changed more rapidly. Patient and his refused this option. As the patient does not meet meet pink slip criteria discussion was had with them about the need for treatment and the need to prevent him from becoming psychotic and mildly catatonic like he may have been in November 2018. The patient's and he are both retired and they are very close and she and he feel able to handle the situation at home and he feels able to participate in the IOP program. Options were given and the patient and his have decided elected to do the following. 1 decrease Cymbalta to 60 mg daily for 1 week and then discontinue. (2) DC BuSpar; (3) Ativan 0.5 mg p.o. every 6-8 hours while awake and 1 p.o. during the night if the patient needs it. If 0.5 mg do nothing the patient may take 1 mg of Ativan when having panic attack or severely anxious. In addition prescription for Abilify was sent in at 2 mg p.o. every morning. Decision was made to not try another antidepressant as the patient felt he got worse on Zoloft in the past aunts and Cymbalta although he did well intermittently on Cymbalta. The patient understands that if he does not feel safe at any time he should go to the emergency room and his agrees. He felt safe during the interview and has always felt safe during this depressive episode and agrees to tell her to go to the emergency room if he does not feel safe at any time. The risks, options, possible complications and side effects of the medications were discussed with the patient and he understands and accepts these. The Ativan will be used to hopefully prevent any approaching catatonia. The patient understands that if his condition worsens he will probably have to be admitted to the hospital. He will continue to follow-up with his outpatient psychiatric and medical providers and I will see the patient in follow-up in 1 week.
--- NOTE | 2021-08-06 13:35 | BH.DR.ITP ---
Initial Treatment Plan Patient Information Visit Information: ADMISSION DATE: EXPECTED LOS: 4-6 weeks Problems/Symptoms Problem #1:: Depression Symptom:: Sadness, hopelessness, low motivation, anhedonia, biological disruption of appetite, biological disruption of sleep, low energy, decreased concentration, guilt Problem #2:: Anxiety Symptom:: Worry, rumination, panic attacks, obsessive thinking
--- NOTE | 2021-08-06 14:37 | BH.COMM ---
Communication Note - Communication with Client Communication Note: Program psychiatrist and this therapist have given patient and options for voluntary admission to psych unit to help stabilize, however they have refused. He does not meet criteria for pink slip as he has been evaluated by ER physician yesterday and psych today. This therapist discussed Partial Hospitalization however pt admits that being in group environment can be anxiety producing and increasing groups and treatment to 4 hours everyday (PHP )may exacerbate his anxiety and lead to further distress. Also transportation obstacle as pt currently does not feel comfortable driving.
--- NOTE | 2021-08-08 10:14 | BH.SGPN.GN ---
Behaviors/Verbalizations/Mental Status: []Client alert and oriented, neatly dressed and groomed. Eye contact good. Motor activity appropriate. Speech within normal limits. Affect constricted, mood anxious and depressed. Thoughts linear, logical, no signs of hallucinations or delusions. Client Response/Progress/Benefit: []Pt was an active participant in group discussion and activity. Attentive during psychoeducation. Pt participated in group discussion in which group defined fixed mindset and provided insight on how a fixed mindset could impact mental health. Pt?s fixed mindset thoughts included: I?m inadequate to do certain jobs? and ?I?m a burden.? Pt stated fixed thinking results in pt procrastinating and avoiding. Benefited from increased awareness on the role of fixed mindset on mental health. Will continue in IOP to prevent decompensation, gain healthy coping skills, and improve daily functioning. Narrative Note: []
--- NOTE | 2021-08-08 10:21 | BH.MDN_ITS ---
Multi-Disciplinary Note - Note 45-min Individual Time Started:: 09:10 Date: 08/08/21 Purpose of session/treatment goals addressed:: To gather information on client's current stressors, symptoms, triggers, and tx goals. Another goal was to build rapport and provide emotional support. Eye Contact:: Good Motor Activity:: Appropriate Appearance:: Casual Speech:: Soft, Other - slow but improved from 08/06/21 meeting with psychiatrist. Mood:: Anxious, Dysthymic Affect:: Constricted Thoughts:: Linear, Logical, No evidence of hallucinations/delusions noted Staff Interventions:: thought challenging, psychoeducation on: - depression and anxiety, CBT techniques, rapport building, strengths perspective, goal setting Client Response:: Pt responded well to session, quiet at first but then became more vocal. Pt shared this is the second time pt has struggled with depression in his lifetime. Pt reported he has a hard time getting out of bed and he feels a lot of guilt because pt's has to help pt function. Pt receptive to norm alizing how depression impacts a person and challenging inappropriate guilt. Pt talked about his , kids, and grandkids and this appeared to improve pt's mood. Pt also shared that he loves the outdoors and horses. 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 Pt also identified goals of getting back to driving himself places, reducing isolation, and being social again. Pt recognizes that he has been avoiding talking to his friends because of his depression. Pt has been to therapy in the past, but pt stated I don't think I stayed long enough for it to work. Discussed what can be done to make IOP less overwhelming and pt stated he is going to try and sit in the front of the group room to help pt pay attention. Pt requested to be taken off of one of his nighttime medications and IOP psychiatrist confirmed pt can stop his Trazodone. Risks/Concerns:: Pt denies any suicidal ideations, plan, or intent as of 08/08/21. No HI. Progress Toward Goals/Plan:: Pt's first week of IOP tx and pt reports feeling overwhelmed but pt found meeting with the psychiatrist helpful. Pt's affect and speech were improved today from Wednesday and pt was interacting well during session. Pt endorses a depressed mood, isolative behaviors, avoidance, guilt, ruminations, lack of energy, anhedonia, and anxiety. Pt reports his symptoms are significantly impacting his daily functioning and keeping pt from engaging in his hobbies. Pt informed he can request a family session while in IOP. Pt will continue IOP tx to prevent decompensation, gain healthy coping skills, and prevent hospitalization. Time Stopped:: 09:50
--- NOTE | 2021-08-08 10:23 | BH.MTP ---
[facility] Plan - Patient Information Program Physician:: Dr. Kailey Turcios Primary Therapist:: Kristie GONZÁLES - Psychiatric Diagnoses Psychiatric Diagnoses:: Major depressive disorder, recurrent, severe without psychosis F 33.2; Generalized anxiety disorder; Panic disorder; Rule out health anxiety disorder Diagnosis Code(s):: F 33.2 - Estimated LOS Estimated LOS (in weeks):: 6 Problem/Goal #1 - Problem/Goal #1 Stated Goal:: Client will decrease depressive symptoms, guilt, low motivation, negative self-talk, and anhedonia due to major depression disorder. Description of Barriers: Pt has family history of by suicide, possible Parkinson's Disease, and anxiety. Pt reports he had counseling one other time previously, but pt shared I didn't stay long enough to get better. Pt reports feeling guilty and worries about being a burden to his . Pt states he is struggling to focus which could be a barrier to learning information in IOP. Pt is currently unable to function and is finding no enjoyment in the things he used to enjoy. Functional Impact: Pt is a 66 year-old male with a history of MDD and NYA. Pt has a previous psychiatric admission to [facility] in 2019 due to suicidal ideations and irrational delusions. Pt has been decompensating since 06/22/21 per pt's 's report. Pt presents with brain fog, feeling overwhelmed, difficulty carrying on conversations, and second-guessing everything. Pt has a history of health-related anxiety and family history of possible Parkinson's Disease. Currently pt endorses poor sleep, poor appetite, low energy, low motivation, hopelessness, anhedonia, poor memory and concentration, and guilt. Pt also reports panic attacks, intrusive/obsessive thoughts, and ruminations. Denies any suicidal ideations or passive thoughts of . Pt's symptoms are currently impacting his overall functioning. Goal Relevant Strengths/Supports: Pt's is very supportive and active in pt's treatment. - Objectives Objective #1 Stated Objective: pt will learn and utilize 2-3 healthy coping strategies to better manage depressive symptoms as shown by a reduced DSM-5 scores for depression. Interventions: Through group and individual sessions, therapist will help pt identify triggers and warning signs of depression and emotional dysregulation including emotional, physical, and behavioral changes. Therapist will teach pt various coping skills to manage symptoms and give pt tangible resources to use to regulate emotions. Therapist will use cognitive restructuring techniques and help pt gain awareness of negative thoughts that reinforce guilt and depression. Therapist will provide psychoeducation on maintenance cycles and help client learn ways to break unhealthy maintenance cycles. Therapist will help pt incorporate behavioral activation and assist pt in setting SMART goals. Discharge Criteria: pt will have met this goal when pt can report learning and using at least 2 coping skills to manage depressive symptoms. Additionally, pt will have met this goal when depressive symptoms have reduced on the DSM-5 scale. Target Date: 09/15/21 Review Date: 08/25/21 Status: open Objective #2 Stated Objective: Pt will reduce depression and feelings of being hopelessness by accomplishing 1-2 self-care activities a day. Interventions: Through group and individual sessions, pt will learn how to set small SMART goals to promote mood stability and self-care. Therapist will teach pt the different kinds of self-care as well as the benefits of self-care. Discharge Criteria: Pt will have accomplished this goal when can report accomplishing at least one self-care activity a day. Target Date: 09/15/21 Review Date: 08/25/21 Status: open Problem/Goal #2 - Problem/Goal #2 Stated Goal:: Pt will reduce anxiety and panic symptoms while increasing ability to function on daily basis. Description of Barriers: Pt has family history of by suicide, possible Parkinson's Disease, and anxiety. Pt reports he had counseling one other time previously, but pt shared I didn't stay long enough to get better. Pt reports feeling guilty and worries about being a burden to his . Pt states he is struggling to focus which could be a barrier to learning information in IOP. Pt is currently unable to function and is finding no enjoyment in the things he used to enjoy. Functional Impact: Pt is a 66 year-old male with a history of MDD and NYA. Pt has a previous psychiatric admission to [facility] in 2019 due to suicidal ideations and irrational delusions. Pt has been decompensating since 06/22/21 per pt's 's report. Pt presents with brain fog, feeling overwhelmed, difficulty carrying on conversations, and second-guessing everything. Pt has a history of health-related anxiety and family history of possible Parkinson's Disease. Currently pt endorses poor sleep, poor appetite, low energy, low motivation, hopelessness, anhedonia, poor memory and concentration, and guilt. Pt also reports panic attacks, intrusive/obsessive thoughts, and ruminations. Denies any suicidal ideations or passive thoughts of . Pt's symptoms are currently impacting his overall functioning. Goal Relevant Strengths/Supports: Pt's is very supportive and active in pt's treatment. - Objectives Objective #1 Stated Objective: pt will identify 2-3 anxiety triggers and 2 calming coping skills to reduce anxiety as shown by decreased DSM-5 cross cutting symptom measure scores. Interventions: Therapist will help pt increase awareness of anxiety triggers and avoidance behaviors. Therapist will teach pt various calming and mindfulness strategies to promote emotional regulation and reduction of anxiety. Therapist will encourage pt to implement healthy coping skills on a regular basis and increase self-care in all areas. Discharge Criteria: pt will have accomplished this goal when can report at least 2 triggers for anxiety and 2 calming strategies to manage symptoms. Additionally, pt will have accomplished this goal when pt can report reduced DSM-5 cross cutting symptoms for anxiety. Target Date: 08/25/21 Review Date: 09/15/21 Status: open Objective #2 Stated Objective: pt will reduce anxiety and feelings of being overwhelmed by accomplishing 2-3 small goals a week. Interventions: Through group and individual sessions, pt will learn how to set small SMART goals to promote stress management. Therapist will provide education on stress and teach pt effective stress management strategies. Discharge Criteria: Pt will have accomplished this goal when can report accomplishing at least two small goals a week. Target Date: 08/25/21 Review Date: 09/15/21 Status: open
--- NOTE | 2021-08-08 10:24 | BH.PSA ---
Source of Information - Presenting Problems/Circumstances Problems, Referral Source, Mental Status, Client: Pt is a 66 year-old male with a history of MDD and NYA. Pt has a previous psychiatric admission to [facility] in 2019 due to suicidal ideations and irrational delusions. Pt has been decompensating since 06/22/21 per pt's 's report. Pt presents with brain fog, feeling overwhelmed, difficulty carrying on conversations, and second-guessing everything. Pt has a history of health-related anxiety and family history of possible Parkinson's Disease. Currently pt endorses poor sleep, poor appetite, low energy, low motivation, hopelessness, anhedonia, poor memory and concentration, and guilt. Pt also reports panic attacks, intrusive/obsessive thoughts, and ruminations. Denies any suicidal ideations or passive thoughts of . Pt's symptoms are currently impacting his overall functioning. Psychiatric Presentation - Psych Issues & Need for Admission Psychiatric Issues:: Major depressive disorder, recurrent, severe without psychosis F 33.2; Generalized anxiety disorder; Panic disorder; Rule out health anxiety disorder Past Psychiatric History - Treatment Hx Treatment History: Pt has a history of one psychiatric admission in November 20, 2018 at [facility] for severe depression with possible catatonia and psychosis and suicidal ideation. Pt has no suicide attempts ever and has never had a plan for suicide. He does not see a counselor currently and has no psychiatrist but does have a primary care doctor. His past medications include Zoloft and Cymbalta. Pt was first depressed in 2019 which was triggered by health concerns over having pain in his knees and wrists and was worried but was diagnosed with arthritis. He had counseling in 2019 after this admission he went for 2-3 sessions after discharge but did not feel it was very helpful. First hospitalization:: [facility] November 20 2018 Most recent hospitalization:: same as above Medication Trials:: Yes ECT Therapy:: No Age of first mental health symptoms: See treatment history Describe (age, circumstance, etc) any past hospitalizations: See treatment history Current providers for mental health treatment (counselor, psychiatrist, lead case manager, etc.): No current individual therapy, but used to see Naye Hartley. No psychiatrist. Development & Family of Origin - Childhood Significant Childhood Events: Pt described his upbringing as strict, but denied any trauma. - Family Who currently lives in your home?: Pt lives with his in a house they own Describe family composition:: His parents were and he says loving. There was no physical, verbal or sexual abuse ever. Pt's parents have both . Pt is the oldest of 5 children and has a brother a sister 1 year younger, brother 2 years younger, a brother 5 years younger, and a sister 13 years younger and they are not very close. Pt is and has been with his for 42 years. Pt describes the relationship as healthy and supportive. Pt and his have 3 children and two grandchildren. Pt is close with his kids and grandkids. - Family History Family Hx of Psychiatric or AOD Problems: Pt has a family history of 2 completed suicides by maternal first cousins. He has a daughter with anxiety who is treats herself with marijuana. Ethnicity - Culture Do you identify yourself with any particular cultural, ethnic background, or community?: No - Sexuality Sexual Orientation: Heterosexual Mental Status - Memory Recent Memory: Poor Remote Memory: Poor - Concentration Concentration: Fair - Eye Contact Eye Contact: Poor, Stares - Speech Speech: Soft - Thought Process Thought Process: Ruminations Insight: Fair Judgment: Fair Behavior: Anxious - Orientation Orientation: Time, Person, Place, Situation - Appearance Appearance: Appropriate - Mood Mood: Depressed - Affect Affect: Flattened Suicide Assessment - Suicidal Ideation Have you ever felt like hurting yourself?: Yes Were you using ETOH/drugs at the time?: No Suicidal Intentional Rating Scale (SIRS): Suicidal thoughts (past) - Denies any current SI, plan, or intent. Pt had a hospitalization in 2019 due to suicidal ideations and depression. Physician Notification: If Active suicidal thoughts/Will not contract for safety is checked, contact physician and document in the Physician Notification section below. Violent Behavior/Abuse History - Homicidal Ideation Do you have any homicidal thoughts? If so, explain:: No Is there a known potential victim? If yes, who:: No - Abuse Have you ever been abused?: No Please explain:: Pt denies any abuse. - Life Events Describe significant life events: Pt has a history of health anxiety and the pandemic worsened this. - Safety Do you ever feel threatened in your home? If yes, describe:: No Adult Social History - Age 18 to Present Describe your current support system:: Pt has his , horses, and children. Pt used to go to [facility] for support. Substance Use - Substance Substance Use Type: None - No drug use. Non-smoker. No vaping. No drugs ever no marijuana and no rehab. No alcohol use. Education & Occupational Histo - Education What is your level of education?: Master Degree - School was good for him and he obtained good grades. He graduated high school and then got a college degree in education. He then got a masters in education. 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 Service - Service Have you ever been in the ?: No Legal History - Records Have you had any past legal charges?: No Do you have any current legal charges?: No Have you ever been incarcerated? If yes, describe:: No - Court Orders Have you had any past court orders for psychiatric treatment?: No Do you have a present court order for psychiatric treatment?: No Problem Checklist - Current Problem Areas Problem List: Nutritional/Eating pattern changes, Depressed mood/sad, Anxiety, Inattention, Psychosis - There is evidence possibly of a minimal delusion of reference when the patient watches videos online but unable to be certain. Possible mild catatonia, delusions and disorganized thinking when hospitalized in 2019, Sleep problems Diagnoses - Diagnoses Diagnosis #1:: Major depressive disorder, recurrent, severe without psychosis F 33.2 Diagnosis #2:: Generalized anxiety disorder Diagnosis #3:: Panic disorder Diagnosis #4:: Rule out health anxiety disorder Interpretive Summary - Interpretive Summary Interpretive Summary: Pt is a 66 year-old male with a history of MDD and NYA. Pt has a previous psychiatric admission to [facility] in 2019 due to suicidal ideations and irrational delusions. Pt has been decompensating since 06/22/21 per pt's 's report. Pt presents with brain fog, feeling overwhelmed, difficulty carrying on conversations, and second-guessing everything. Pt also has been reporting he has ?ruined everything for everyone.? Pt has a history of health-related anxiety and family history of possible Parkinson's Disease. Currently pt endorses poor sleep, poor appetite, low energy, low motivation, hopelessness, anhedonia, poor memory and concentration, and guilt. Pt also reports panic attacks, intrusive/obsessive thoughts, and ruminations. Denies any suicidal ideations or passive thoughts of . Pt's symptoms are currently impacting his overall functioning. Pt reports he was first depressed in 2019 and does not think he had mental health issues before this. However, pt?s thinks maybe pt has struggled before, but was able to function. Pt has family history of two deaths by suicide and pt?s daughter has anxiety. Pt denies any substance use currently or ever. Pt denies any abuse, but pt described his childhood as strict. Pt has no symptoms of meera, denies any self-harm, and has no suicide attempts ever. Pt has been retired since 2012 and overall has enjoyed being retired. Pt is to his of 42 years and pt describes the relationship as healthy and supportive. Treatment Plan Recommendations - Recommendations Guidelines: Special needs identified to be included in the development of an individualized treatment plan regarding past psychiatric history and treatment, developmental events, family relationships/events/culture, past and/or current educational, occupational, social, and residential experience, and legal status. Recommendations:: The patient and his were given the option of being voluntarily admitted to a psychiatric unit so he could be watched closely and have his medications changed more rapidly. Patient and his refused this option. Pt does not meet pink slip criteria, so [facility] psychiatrist encouraged treatment and the need to prevent him from becoming psychotic and mildly catatonic like he may have been in November 2018. Pt and his met together with [facility] psychiatrist and were given options for medication. See psychiatrist evaluation for more information. Pt encouraged to start up stretching/exercise again and pt will need outpatient providers before discharging.
--- NOTE | 2021-08-08 11:14 | BH.SGPN.GN ---
Behaviors/Verbalizations/Mental Status: [] Client alert and oriented, casually dressed and groomed. Eye contact fair to good. Motor activity appropriate. Speech within normal limits, quiet. Affect constricted. mood anxious. Thoughts linear, logical, no signs of hallucinations or delusions. Client Response/Progress/Benefit: []Client more engaged during activity and discussion AEB providing some input to discussion, as well as taking notes throughout. Client did well to engage as group worked on identifying characteristics and benefits of adopting a growth mindset, sharing that this allows for you to better cope with setbacks and stressors. Worked with fellow participants in reframing the example fixed thoughts into growth mindset thoughts and providing ideas when encouraged throughout. Client worked in small group to apply skills learned to reframe own personal fixed thoughts. Reframed personal fixed thought of ?I don?t feel adequate enough to do things around the house? with growth mindset thought of ?I can always improve if I keep trying?. Benefitted from discussing benefits of growth mindset and brainstorming strategies for prompting growth-mindset. Will continue IOP tx to continue to promote anxiety management, reduce intrusive worry, as well as continue to improve healthy coping repertoire. Narrative Note: []
--- NOTE | 2021-08-11 09:00 | BH.SGPN.GN ---
Behaviors/Verbalizations/Mental Status: []Pt alert and oriented, casually dressed and groomed. Eye contact good, motor activity appropriate, speech within normal limits. Affect, flat. Mood, depressed and anxious. Thoughts linear, logical, no signs of hallucinations or delusions. Reviewed pt's daily symptom tracker, no SI indicated. Client Response/Progress/Benefit: []Pt responded somewhat well to session, appeared to be listening to peers and attentive, but quiet. Pt declined to share during check-in and appeared anxious. Pt's had called in earlier this morning and shared pt was feeling lethargic, potentially due to his medications. Therapist asked pt how he was doing and he said I'm struggling today. Pt receptive to emotional support from therapist and stated he will try to focus on taking notes for the next two groups. Appeared to benefit from coming to IOP tx rather than isolating at home. Pt will continue IOP tx to prevent decompensation, gain healthy coping skills, and monitor medications. Narrative Note: []
--- NOTE | 2021-08-11 10:10 | BH.SGPN.GN ---
Behaviors/Verbalizations/Mental Status: [] Eye contact is good. Motor activity is appropriate. Appearance is casual. Speech is Appropriate. Mood is anxious. Affect is full. Thoughts are linear and logical. No evidence of psychosis. Client Response/Progress/Benefit: [] Pt did not participate in group discussion. Pt has limited engagement in groups due to reported anxiety. Attentive during group psychoeducation. Limited participation in small group during experiential activity where pts answered questions regarding mental health statistics. Benefited from increased awareness of how mental health stigma can impact individuals and treatment. Will continue in IOP to prevent further decompensation, stabilize anxiety, and to improve daily functioning.
--- NOTE | 2021-08-11 11:10 | BH.SGPN.GN ---
Behaviors/Verbalizations/Mental Status: []Client alert and oriented, casually dressed and groomed. Eye contact fair. Motor activity appropriate. Speech within normal limits. Affect constricted, mood anxious. Thoughts linear, logical, no signs of hallucinations or delusions. Client Response/Progress/Benefit: []Client passive participant AEB client providing limited input during discussion, however appeared to listen attentively to peers and worked well with others in small group. Client appeared to connect with discussion about what stigma has kept him from doing. Group brainstormed strategies to combat social and perceived stigma. Client shared one thing he can personally do to combat stigma is to increase positive self-talk and be more honest about his mental health. Appeared to benefit from increasing awareness of strategies to combat stigma. Will continue IOP tx to decrease anxiety, increase healthy coping and prevent decompensation.
--- NOTE | 2021-08-13 09:00 | BH.SGPN.GN ---
Behaviors/Verbalizations/Mental Status: [] Eye contact is fair. Motor activity is appropriate. Appearance is casual. Speech is Appropriate. Mood is anxious. Affect is constricted. Thoughts are linear and logical. No evidence of psychosis. Reviewed daily check in sheet and no reports of suicidal ideations or intent. Client Response/Progress/Benefit: [] Pt was an engaged participant in group discussion. Attentive. Pt reported yesterday he talked with two of his friends. Pt stated when he is struggling he typically doesn't talk about what's going on. Pt reported not communicating with others has not worked out well for him. Pt stated additional mental health win was getting some chores done. Pt reported stressed about worried won't be able to get certain tasks done in the near future. Benefited from group support, encouragement, and feedback. Progress noted as shown by pt reporting opening up to others. Will continue in IOP to improve daily functioning, increase healthy coping and prevent decompensation.
--- NOTE | 2021-08-13 11:10 | BH.SGPN.GN ---
Behaviors/Verbalizations/Mental Status: []Client alert and oriented, neatly dressed and groomed. Eye contact good. Motor activity appropriate. Speech soft. Affect constricted, mood dysthymic and anxious. Thoughts linear, logical, no signs of hallucinations or delusions. Client Response/Progress/Benefit: []Client engaged participant AEB client taking notes during discussion. Attentive throughout group discussion on the various areas of self-care, benefits, and types of self-care activities for each area. Client completed worksheet which identified current self-care practices and what self-care activities client wants to start using. Client selected physical self-care as the area of self-care client would like to improve. Client plans to do this by getting back into exercising and getting better sleep. Client reports he is doing well with financial self-care. Appeared to benefit from completing the self-care evaluation and gaining insights into current self-care practices, as well as identifying areas in which client would like to improve upon. Will continue IOP tx to prevent decompensation, gain healthy coping skills, and reduce negative thinking patterns. Narrative Note: []
--- NOTE | 2021-08-13 12:12 | PCM.BH.PN ---
Progress Note Progress Note: History of Present Illness/Interim History: [] The patient is a 66-year-old male who is seen in follow-up at the [facility] behavioral health IOP program where he is being seen now for severe depression and anxiety. I last saw the patient 1 week ago and at that time he was started on Ativan and Abilify. In addition his Cymbalta was decreased from 120 mg to 60 mg. The patient is seen with his . The patient says mood and anxiety are improved but he is somewhat sedated with the Ativan 0.5 mg which he decreased from 3 to twice a day 2 days ago. The Abilify was increased to 4 mg daily 2 days ago also. The patient and his feel he is much better concerning his anxiety and he has not had any panic attacks at all in the last week. His mood is less depressed and his memory and concentration are much improved. The patient is less aware of his improvement then the staff and his are. The patient's says that he is much better and is notes that he took 1 week ago when he started the program versus his notes in the past few days or completely changed. His notes are normal now and makes sense and are complete whereas his notes in the beginning were spares and he was unable to take in much. Staff feels he is also better able to participate in groups and in individual work with the counselor. He is more engaged, has more insight and is more vocal. The patient sleep is still not satisfactory to him however he has been going to bed early and has been in bed for about 11 hours just does not sleep the whole time. The patient has had much less crying in the last week. The patient denies passive thoughts of , suicidal ideation, homicidal ideation, hallucinations or delusions. His appetite is slowly improving according to his but the patient is not sure about this. Current Psychiatric Medications: [] Cymbalta 60 mg p.o. daily; to discontinue today. Abilify 4 mg p.o. nightly (started 1 week ago and dose increased 2 days ago). Ativan decreased to 0. mg p.o. twice daily 2 days ago. Mental Status Examination: [] The patient is a 66-year-old male who is casually dressed and groomed with good hygiene and is seen wearing a mask due to the pandemic. The patient is a good historian today and his response latency is back to what appears to be normal for him. He has no psychomotor agitation or retardation. Eye contact is good and speech is normal rate and rhythm and fluent with no pressure. Thought process is goal-directed and organized. Thought content: There is no evidence of passive thoughts of , suicidal ideation, homicidal ideation, hallucinations or delusions. He is better able to make decisions now although still has some trouble. Reality testing is intact. Judgment is intact. Insight is fair. Impulsivity is mild to moderate. Diagnoses: [] 1. Major depressive disorder, recurrent, severe without psychosis 2. Generalized anxiety disorder 3. Panic disorder 4. Rule out health anxiety disorder Plan: [] The patient will continue the IOP program at [facility] in behavioral health as the structure, support, education and group therapy will hopefully prevent the patient from requiring hospitalization. He felt safe during the interview and if it anytime he does not feel safe he will let us know or go to the emergency room. The risks, options, possible complications and side effects of the medications were again discussed with the patient and he understands and accepts these. Patient understands that he will not be have to be on Ativan for very long as he and his are concerned about becoming dependent on it. The patient will discontinue the Cymbalta today. He will continue his Abilify at 4 mg p.o. nightly. He will decrease his Ativan to 0.25 mg p.o. twice a day. I will see him in follow-up in 1 week. He will continue to follow-up with his outpatient providers.
--- NOTE | 2021-08-15 09:05 | BH.SGPN.GN ---
Behaviors/Verbalizations/Mental Status: [] Eye contact is good. Motor activity is appropriate. Appearance is casual. Speech is normal. Mood is euthymic. Affect is full. Thoughts are linear and logical. No evidence of psychosis. Reviewed daily check in sheet and no reports of suicidal ideations or intent. Client Response/Progress/Benefit: [] Pt participated at times during the group discussion. More vocal and engaged than past process groups. Daily symptom tracker notes 5 for depression and /5 for anxiety. Emotion for today is involved. Pt identified several mental health wins stating that he is feeling less anxious and more motivated this week. Shared that he went to work out on 08/13/21 which is the first time in several months. While exercising he met and spoke with friends that he has been avoiding since his mental health decompensation. Increased energy and competing tasks around the house. Feels less distracted and overwhelmed. Improved focus, concentration, insight, and memory. Progress noted per pt report. Benefited from group support and encouragement. Will continue in IOP to prevent decompensation, maintain gains, and increase functioning. Narrative Note: []
--- NOTE | 2021-08-15 10:15 | BH.SGPN.GN ---
Behaviors/Verbalizations/Mental Status: []Client alert and oriented, neatly dressed and groomed. Eye contact good. Motor activity appropriate. Speech within normal limits. Affect constricted, mood anxious. Thoughts linear, logical, no signs of hallucinations or delusions. Client Response/Progress/Benefit: []Pt was an active participant in activity and taking notes during group discussion. Attentive during psychoeducation on coping skills, why people use unhealthy coping skills, and how to replace unhealthy coping skills. Benefited from increased understanding of unhealthy coping skills and the need for developing healthy interna and external coping skills. Pt will continue IOP tx to prevent decompensation, gain healthy coping skills and supports, and improve daily functioning. Narrative Note: []
--- NOTE | 2021-08-15 15:58 | BH.MDN_ITS ---
Multi-Disciplinary Note - Note 30-min Individual Time Started:: 11:35 Date: 08/15/21 Purpose of session/treatment goals addressed:: To work on goal #1 of pt's tx plan-behavioral activation, maintenance cycles, goal setting. Eye Contact:: Good Motor Activity:: Appropriate Appearance:: Casual Speech:: Soft Mood:: Anxious, Dysthymic Affect:: Constricted Thoughts:: Linear, Logical, No evidence of hallucinations/delusions noted Staff Interventions:: thought challenging, psychoeducation on: - maintenance cycles, depression, anxiety, behavioral activation., strengths perspective, goal setting - taught pt A.C.E.S to promote behavioral activation Client Response:: Pt responded well to session, open to meeting with therapist. Pt reflected on progress since starting IOP and changing medication. However, pt reports he is still struggling with isolating, motivating himself, not functioning at his baseline, and anhedonia. Pt learned about depressive maintenance cycles and how thoughts, emotions, and behaviors all connect. Discu ssed the benefits of behavioral activation and how this can begin to break unhealthy maintenance cycles. Reviewed A.C.E.S (accomplish, closeness, enjoyment, and self-care) as a tool to promote behavioral activation and document mental health wins. Pt shared maintenance cycles make a lot of sense as pt has a hard time getting motivated once he is laying down or sitting on the couch. Risks/Concerns:: Pt denies any suicidal ideations, plan, or intent as of 08/15/21. No HI. Progress Toward Goals/Plan:: IOP staff has observed visible affect and con centration changes since starting IOP tx. Pt is more interactive individually and in groups and he is able to take notes and focus during discussions. Pt?s reports improvement in mood and memory. Pt continues to report andhedonia, poor sleep, lack of motivation and energy, guilt, and feeling like a burden. Pt responded well to session today and goals discussed. Pt will continue IOP tx to promote use of healthy coping skills, monitor medications, and improve daily functioning. Time Stopped:: 12:05
--- NOTE | 2021-08-18 09:00 | BH.SGPN.GN ---
Behaviors/Verbalizations/Mental Status: [] Eye contact is good. Motor activity is appropriate. Appearance is casual. Speech is Appropriate. Mood is euthymic. Affect is congruent. Thoughts are linear and logical. No evidence of psychosis. Reviewed daily check in sheet and no reports of suicidal ideations or intent. Client Response/Progress/Benefit: [] Pt was an active participant in group discussion. Attentive. Pt stated mental health positive as being able to manage his anxiety when his spontaneously invited their neighbors over for dinner. Pt reported he does not do well when things are not planned out because doesn't have enough time to prepare or clean. Pt stated he used self-talk and focused on what's in his control to help manage his anxiety. Pt stated he was able to have a fun time playing games with his and neighbors. Pt stated additional mental health positive as spending time with his making a baby blanket for their grandchild. Progress noted as pt was able to use healthy skills to manage emotions in the moment. Benefited from group support, feedback, and encouragement. Will continue in IOP to continue use of healthy skills, decrease anxiety and prevent decompensation.
--- NOTE | 2021-08-18 10:05 | BH.SGPN.GN ---
Behaviors/Verbalizations/Mental Status: []Client alert and oriented, casually dressed and groomed. Eye contact good. Motor activity appropriate. Speech within normal limits. Affect congruent, mood euthymic. Thoughts linear, logical, no signs of hallucinations or delusions. Client Response/Progress/Benefit: []Client responded well to session AEB sharing and listening attentively to others. Client participated in experiential activity illustrating resilience and provided insight during group processing. Client participated in group discussion defining resilience, with client stating resilience is ?bouncing back and learning from experiences?. Engaged throughout group discussion discussing how resilience is developed. Clinician provided psychoeducation on the road to resilience, and introduced how making connections with others can help build resilience. Client listened attentively to others as they shared examples of the benefits of making connections. Appeared to benefit from increase knowledge of resilience. Will continue IOP treatment to continue increasing application of healthy coping skills and self-care to improve daily functioning. Narrative Note: []
--- NOTE | 2021-08-18 11:15 | BH.SGPN.GN ---
Behaviors/Verbalizations/Mental Status: []Client alert and oriented, casually dressed and groomed. Eye contact good. Motor activity appropriate. Speech within normal limits, quiet. Affect constricted, mood anxious. Thoughts linear, logical, no signs of hallucinations or delusions Client Response/Progress/Benefit: []Client responded well to session AEB listening and more actively contributing to group discussion than in prior sessions, as well as taking notes throughout. Client participated in small group discussion of how each resiliency component can help increase personal resiliency. Worked cooperatively with group to identify strategies to enhance each of the components discussed. Client identified doing well with the resilience component of ?take care of yourself?. Went on to reflect wanting to improve in the personal resilience component of ?keep things in perspective?. Client stated he wants to work on this by slowing down and thinking things through before responding to a situation. Client seemed to benefit from discussing strategies for improving personal resilience. Will continue IOP tx to promote application of anxiety management skills, consistent application of healthy coping skills, and prevent deompensation. Narrative Note: []
--- NOTE | 2021-08-20 09:00 | BH.SGPN.GN ---
Behaviors/Verbalizations/Mental Status: []Eye contact is good. Motor activity is appropriate. Appearance is casual. Speech is appropriate. Mood is euthymic. Affect is congruent. Thoughts are linear and logical. No evidence of psychosis. Reviewed daily symptom tracker sheet with no reports of suicidal ideations, plan, or intent. Client Response/Progress/Benefit: []Client was engaged throughout group session, sharing and listening attentively to others. Client reported his emotion as ?hopeful?. Client discussed going on a walk with his and speaking with his neighbors. Reported progress of being able to take care of his horses ?with confidence? this week. Client discussed a stressor of working to get into a routine of self-care and daily tasks. Appeared to benefit from supportive group environment. Will continue IOP treatment to increase anxiety management skills and decrease negative self-talk to improve daily functioning. Narrative Note: []
--- NOTE | 2021-08-20 10:10 | BH.SGPN.GN ---
Behaviors/Verbalizations/Mental Status: []Client alert and oriented, neatly dressed and groomed. Eye contact good. Motor activity appropriate. Speech within normal limits. Affect constricted, mood euthymic. Thoughts linear, logical, no signs of hallucinations or delusions. Client Response/Progress/Benefit: []Client engaged during session AEB taking notes and completing worksheet. Connected with discussion on crisis and how coping with external crises by using unhealthy coping skills could result in a personal crisis. Group reflected on the importance of having awareness of personal warning signs to prevent reaching crisis point. Group identified potential warning signs for crisis and client completed the personal warning signs worksheet. Client identified personal crisis warning signs to include: loss of interest, isolating and avoiding, and sleep less than usual. Client benefited by increasing awareness of what leads to crisis and personal warning signs. Client will continue IOP tx to prevent decompensation, increase knowledge of healthy coping skills, and improve daily functioning. Narrative Note: []
--- NOTE | 2021-08-20 11:10 | BH.SGPN.GN ---
Behaviors/Verbalizations/Mental Status: []Client alert and oriented, casually dressed and groomed. Eye contact good. Motor activity appropriate. Speech within normal limits. Affect congruent, mood euthymic. Thoughts linear, logical, no signs of hallucinations or delusions. Client Response/Progress/Benefit: []Client responded well to session as evidenced by client listening attentively to others and providing strategies during small group discussion. Connected as fellow participants discussed the importance of identifying and addressing personal warning signs. Client identified warning signs for crisis and gained further awareness of earliest warning signs. Client created a crisis action plan to help client better manage warning signs for crisis. Client?s action plan for loss of interest includes: exercise, do things used to like to do, get out of house, make list of what wants to do, watch sports, and help with her hobbies. Client appeared to benefit from creating a crisis action plan and increasing self-awareness. Client to continue IOP tx to continue use of healthy coping, challenge negative thinking and prevent decompensation.
--- NOTE | 2021-08-21 10:05 | BH.SGPN.GN ---
behaviors/Verbalizations/Mental Status: v[]Client alert and oriented, neatly dressed and groomed. Eye contact good. Motor activity appropriate. Speech within normal limits. Affect constricted, mood euthymic. Thoughts linear, logical, no signs of hallucinations or delusions. Client Response/Progress/Benefit: []Client responded well to session AEB sharing and listening attentively to others. Client participated in group discussion defining anxiety and how anxiety affects emotions, thoughts, and feelings. Group discussed the benefits of anxiety, as well as when it becomes problematic. Clinician provided psychoeducation the anxiety triangle of physical symptoms, safety behaviors, and common anxious thoughts. Client identified physical symptoms of anxiety as increased heart rate, restlessness, and poor memory. Connected with discussion reviewing anxiety safety behaviors and reported personal safety behaviors as ?drMichael google,? avoidance, and reassurance seeking. Client appeared to benefit from increased knowledge of anxiety diagnoses and causes, as well as improved self awareness of anxiety symptoms. Will continue IOP tx to improve mood stability, monitor medication, and improve daily functioning. Narrative Note: []
--- NOTE | 2021-08-21 11:10 | BH.SGPN.GN ---
Behaviors/Verbalizations/Mental Status: []Client alert and oriented, neatly dressed and groomed. Eye contact good. Motor activity appropriate. Speech within normal limits. Affect constricted, mood anxious. Thoughts linear, logical, no signs of hallucinations or delusions. Client Response/Progress/Benefit: []Client an active participant AEB providing input to discussion and participated in practicing calming skills. Attentive during psychoeducation on mindfulness coping skills and their impact on mental health wellness. The group worked together to brainstorm anxiety reduction strategies that were self-soothing and mind and body-based. Client reported they will practice the 5-senses, deep breathing, and taking walks to manage anxiety. Client seemed to benefit from increased repertoire of anxiety reduction skills. Client will continue IOP tx to reduce anxiety, improve daily functioning, and increase self-confidence. Narrative Note: []
--- NOTE | 2021-08-21 13:37 | BH.MDN ---
Multi-Disciplinary Note - Note 30-min Individual Time Started:: 09:35 Date: 08/21/21 Purpose of session/treatment goals addressed:: The purpose of this session was to work on goal #1 of pt's tx plan. Eye Contact:: Good Motor Activity:: Appropriate Appearance:: Casual Speech:: Appropriate Mood:: Euthymic Affect:: Congruent Thoughts:: Linear, Logical, No evidence of hallucinations/delusions noted Staff Interventions:: psychoeducation on: - the cognitive triangle and health anxiety, CBT techniques, mindfulness skills, strengths perspective, other - gave pt homework to practice skills discussed in group sessions today over the weekend. Client Response:: Pt responded well to session, open to meeting with therapist. Pt shared he has been doing much better since starting IOP. Pt reports being more engaged and social as well as getting back into hobbies he used to enjoy. Pt has been able to drive himself to [facility] and he took care of his horses this week with confidence. Pt was unable to do these tasks independently a month ago. Pt has been using his A.C.E.S prompt to keep track of his wins. Pt shared using opposite action has been helpful in keeping pt active and reduced isolation. Pt receptive to learning about the cognitive triangle and how emotions, thoughts, behaviors, and physical health are all connected. Pt gained awareness that when his physical health is struggling, his anxiety increases which leads to catastrophizing thinking. Discussed how anxious thoughts can exacerbate physical symptoms. Pt practiced deep breathing during session and discussed the benefits of deep breathing. Pt will be getting the anxiety group today at [facility] and will learn more techniques to manage symptoms. Risks/Concerns:: Pt denies any suicidal ideations, plan, or intent as of 08/21/21. Pt future oriented and excited about going to [place]. Progress Toward Goals/Plan:: Pt is progress towards goals AEB increased ability to function at home and increased engagement. Pt has been isolating less and utilizing opposite action. Pt reports his has noticed a different in mood and depressive symptoms appear to be resolving. Pt's anxiety is resolving as well. Pt continues to endorse issues with memory, worry, and mild depressive and anxiety symptoms. Will continue IOP tx to promote gains, increase mood stability intermediate, and further improve daily functioning. Time Stopped:: 09:55
--- NOTE | 2021-09-03 10:00 | BH.SGPN.GN ---
Behaviors/Verbalizations/Mental Status: []Client alert and oriented, casually dressed and groomed. Eye contact good. Motor activity appropriate. Speech within normal limits. Affect congruent, mood euthymic. Thoughts linear, logical, no signs of hallucinations or delusions. Client Response/Progress/Benefit: []Client responded well to session AEB listening attentively to others. Client was engaged throughout group discussion defining pitfalls, and listened attentively throughout psychoeducation on internal and external triggers to pitfalls. Client participated in experiential activity illustrating how easy it is to fall into pitfalls when we are unaware of them. Client provided problem solving and support to group members throughout activity. Appeared to benefit from increased knowledge of pitfalls and their triggers. Will continue IOP treatment to continue increasing anxiety management skills and decrease rumination to improve daily functioning. Narrative Note: []
== END 2021-08-21 23:59 | disposition home or self-care (01) ==
LOC: BHIOP 08:30
PROVIDERS: PCP Family Medicine; Referring Provider Psychiatry & Neurology Psychiatry; Visit Provider Psychiatry & Neurology Psychiatry
DX: F33.2 Major depressive disorder, recurrent severe without psychotic features (principal); F41.8 Other specified anxiety disorders; F41.0 Panic disorder [episodic paroxysmal anxiety]; Z79.899 Other long term (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
CPT/HCPCS: S9480; 90832; 90834; 90853

== ENCOUNTER 2021-08-05 19:32 | Emergency (ER) | payer MEDICARE, SELFPAY ==
[2021-08-05 19:33] VITALS: BP 165/83; PULSE 93; RESP 18; TEMP 36; O2SAT 96; BMI 21.7
--- NOTE | 2021-08-05 19:52 | EX.ED.VIS.PS ---
HPI HPI - Psych History of Present Illness Chief Complaint: Anxiety Detail of Chief Complaint: Depression more so than anxiety Informant: patient and spouse/S.O. Onset/Context/Timing Onset: Hours (Apparently worse past 4 hours) and Month(s) Context: Sudden Onset Conflict: Family, Work and Financial Timing: Continuous and Waxes and wanes Current Severity: Uncertain Maximum Severity: Uncertain Relieved by: Nothing Associated Symptoms Associated Symptoms - Psych: Positive for Depressed, Change in Eating, Change in sleeping, Decreased Interest and Decreased Concentration; Negative for Guilt, Hopelessness, Suicidal Thoughts, Easily distracted, Grandiosity, Flight of Ideas, Increased activity, Pressured Speech, Agitated, Angry, Hostile, Threatening, Confusion, Paranoia, Visual Hallucinations and Auditory Hallucinations Specific plan (suicidal thought): Not applicable Narrative Narrative: 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 He was seen at [facility]. He was started on Cymbalta and trazodone. He was seen for the first time by therapist yesterday. His schedule see psychiatrist at 0830 tomorrow morning. He is part of the mental health program at [facility]. He has no suicidal homicidal thoughts. When asked if he feels this is anxiety or depression he answered both. Patient admits to weight loss, loss of appetite, loss of interest, problems with concentrating. He states he is depressed. Prior similar symptoms: Yes Recent Illness/Hospitalization: No PFSH PFSH Home Medications multivitamin [Multiple Vitamins] 1 ea PO DAILY 01/12/18 [History Last Taken Unknown] glucosamine HCl 1,000 mg PO DAILY 11/20/18 [History Last Taken Unknown] ibuprofen 200 mg PO PRN PRN 08/14/19 [History Last Taken Unknown] buspirone 7.5 mg BID 08/05/21 [History Last Taken Unknown] duloxetine 60 mg PO DAILY 08/05/21 [History Last Taken Unknown] trazodone 100 mg QHS 08/05/21 [History Last Taken Unknown] Allergy/AdvReac Type Severity Reaction Status Date / Time No Known Allergies Allergy Verified 08/05/21 19:46 Social History (Updated 08/05/21 @ 19:[address] 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 ; Denies blurry vision or change in vision ENT ENT ED: Denies ear pain or rhinorrhea Cardiovascular Cardiovascular: Denies chest pain or palpitations Respiratory/Chest Respiratory/Chest: Denies cough, dyspnea or dyspnea on exertion Gastrointestinal Gastrointestinal: Reports constipation; Denies abdominal pain, diarrhea, nausea or vomiting Genitourinary Genitourinary ED: Denies dysuria, hematuria or urinary frequency Musculoskeletal Musculoskeletal: Denies arthralgias or myalgias Integumentary Denies rash Neurologic Neurologic: Denies headache(s), paresthesias or weakness Psychiatric Psychiatric: Reports anxiety and depression; Denies suicidal ideation or suicidal thoughts Hematologic/Lymphatic Hematologic/Lymphatic: Denies easy bleeding or easy bruising EXAM Physical Exam Const Vital Signs: 08/05/21 19:33 Temperature 96.8 F L Temperature Source Temporal Pulse Rate 93 Respiratory Rate 18 Blood Pressure 165/83 H Blood Pressure Mean 110 Pulse Ox 96 Oxygen Delivery Method Room Air Positive well nourished and well developed General Appearance ED: well developed and NAD; Negative for pallor HEENT Reports moist mucous membranes normocephalic and atraumatic Eyes PERRL and EOMs intact bilaterally General Eye ED: Negative for pale conjunctiva Neck no lymphadenopathy, supple and no JVD Resp normal respiratory effort and clear to auscultation bilaterally Cardio no murmurs Rate: regular rate Rhythm: regular rhythm GI non-tender and non-distended Auscultation: normoactive bowel sounds Palpation: soft Back/Spine no CVA tenderness Extremity normal to inspection Neuro oriented x3 and CN's II-XII intact bilaterally Althea Coma Scale: document GCS findings Spontaneous Obeys Commands Oriented 15 Sensorium / Orientation: alert Psych denies hallucinations, denies homicidal ideation and denies suicidal ideation Appearance: grossly normal Attitude: withdrawn Activity / Motor Behavior: psychomotor slowing and avoids eye contact Speech: minimal and slow Mood & Affect: depressed, sad and tearful Thought Process: normal thought process Thought Content: No suicidality, No homicidality, No phobia(s), No delusion(s), No hallucination(s), No ideas of reference, No rumination(s) and No compulsion(s) Attention / Concentration: attention grossly intact and concentration grossly intact Memory / Cognition: cognition grossly intact and other Possible mild pseudodementia due to depression Insight: fair Judgement: fair Skin General Skin Exam: Negative for jaundice or pallor Lesions: no lesions Rashes: no rashes MDM MDM MDM Narrative Medical decision making narrative: My professional opinion patient is anxious. Patient is depressed with may be mild anxiety. was concerned that he would not be able to wait until 8:30 AM appointment at the behavioral unit. Will discuss case with case management since crisis center patient in and spoke with Shayla. Patient was seen by case management. They are comfortable going home. Discharge Plan Triage Chief Complaint: Anxiety ED Provider: Clay Patricia Dx/Rx/DC Orders Clinical Impression: Anxiety and depression, Pseudodementia Instructions: ED Anxiety Reaction, ED Depression Prescriptions: No Action multivitamin [Multiple Vitamins] 1 EACH tablet 1 ea PO DAILY RF: 0 glucosamine HCl 500 MG tablet 1,000 mg PO DAILY RF: 0 ibuprofen 200 MG capsule 200 mg PO PRN PRN (Reason: Pain Or Fever) RF: 0 trazodone 50 mg tablet 100 mg QHS RF: 0 buspirone 15 mg tablet 7.5 mg BID RF: 0 duloxetine 60 mg capsule,delayed release(DR/EC) 60 mg PO DAILY RF: 0 Primary Care Provider: Yrn Macedo Referrals: Yrn Macedo MD [Primary Care Provider] - Behavioral,Health [facility] [GROUP OF PHYSICIANS] - Keep [facility] appointment Disposition Disposition: Home, Self Care
[2021-08-05] MEDS: LORazepam 0.5 MG Tablet PO (20:12)
--- NOTE | 2021-08-05 21:20 | CM.ED ---
Social Work Consult: Mental Health Referral source: Dr. Patricia Chief complaint: Patient reports to have been anxious for four hours today and to have spoken with crisis and was advised to come to the ED. Marital/Social History: to Tiffanie. Has three adult children and two grandchildren. Living Situation: Lives with Tiffanie in a private home. Support/Resources: Active with the Behavioral Health Program at [facility]. Patient with first psychiatric appointment tomorrow morning at 8:30am. History: Denies. 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 Denies issues with comprehension or understanding. Mental Health Treatment/History: Depression, Anxiety. Patient prescribed multiple medications for mental health by patient PCP. Patient and Tiffanie looking forward to speaking with a psychiatrist about patient medication and this is their field. Patient with history of inpatient psychiatric placement in 2019 with similar presentation. Triggers/Stressors: not sure. Coping Skills: Tiffanie helps. Abuse Issues: Denies Substance Abuse Hx: Denies. Risk to Self/Others: Denies suicidal thoughts, plans, intents or history of. Denies homicidal thoughts, plans, intents or history of. Patient denies self harming behavior or violence against others. Mental Status Exam: A&Ox3 Appearance/General Behavior: Clean. Calm. Mood/Affect: Depressed. Communication Pattern: Responds to questions. Thought Process: Denies visual or auditory hallucinations. Judgement: Fair Assessment: Met with patient and patient spouse in room. Introduced self and social services specialist role. Patient agreeable to speak with this social services specialist. Patient provided verbal permission for this social services specialist to speak openly with patient spouse present. Patient reports to not be sleeping and to find that daily task have become difficult such as eating and showering. Tiffanie reports that patient is still shaving and brushing teeth daily. Patient wishes to get better and to live for patient family and Tiffanie. This social services specialist inquired if patient felt that patient would be okay through the night today to then meet with psychiatrist tomorrow in the morning. Patient states desire and wish to return to home. Tiffanie supports patient returning to home and states he is doing so much better. Patient was given Ativan in ED. Patient and Tiffanie comfortable with plan for patient to return to home with follow up through [facility] program. Patient recently started the [facility] Behavior[facility] Health program this week. Active support and listening provided. This social services specialist encouraged patient to return to the ED with an increase in symptoms or any suicidal thoughts. Patient and Tiffanie voice understanding. Collaborating with Dr. Patricia. Dr. Patricia agreeable to above plan. PLAN: Discharge to home. Kang ALEMAN, MYA
[2021-08-05 21:49] VITALS: BP 132/75; PULSE 90; RESP 18; O2SAT 98
--- NOTE | 2021-08-06 18:07 | CM.ED ---
Social Work Telephone call to patient spouse, Tiffanie. This social work specialist following up to see how patient is doing and how doctor appointment went today. No answer. voicemail left. Kang ALEMAN, MYA
--- NOTE | 2021-08-06 18:42 | CM.ED ---
Social Work Return phone call received from patient spouse, Tiffanie. This clinical social worker able to speak with Tiffanie and patient. Patient states to be encouraged with appointment with doctor this morning. Patient states things are going well. Kang ALEMAN, MYA
== END 2021-08-05 21:51 | disposition home or self-care (01) ==
PROVIDERS: Emergency Provider Emergency Medicine; PCP Family Medicine; Visit Provider Emergency Medicine
DX: F41.9 Anxiety disorder, unspecified (principal); F32.A Depression, unspecified; R63.0 Anorexia
CPT/HCPCS: 99284

== ENCOUNTER 2021-08-22 08:18 | Outpatient (RCR) | payer MEDICARE, SELFPAY ==
[2021-08-22 00:50] VITALS: BP 139/82; PULSE 92
--- NOTE | 2021-08-25 08:46 | BH.TPR ---
Treatment Plan Review Date of Admission:: 08/05/21 Date of Treatment Plan Review:: 08/25/21 Admitting Diagnoses:: Major depressive disorder, recurrent, severe without psychosis F 33.2; Generalized anxiety disorder; Panic disorder; Rule out health anxiety disorder Current Diagnoses:: Major depressive disorder, recurrent, severe without psychosis F 33.2; Generalized anxiety disorder; Panic disorder; Rule out health anxiety disorder Patient's Response to Treatment:: Pt has responded mostly well to treatment AEB pt consistently attending IOP sessions and practicing coping skills discussed. However, pt reports he feels like he is unable to keep up with taking notes during group which causes anxiety and confusion at times. Pt applies coping skills outside of IOP, but continues to struggle with challenging negative thinking. Status of Current Problems and Symptoms: Pt's problems are ongoing, but improving per DSM-5. Pt's scores have decreased by 20% since admission. Pt has been driving himself to IOP and pt reports improved functioning at home. Pt continues to struggle with ruminating, guilt, and giving himself credit. Pt's symptoms for depression and anxiety continue to be moderate and pt's stressors are ongoing. Problem #1 Problem Name:: depressive sx, guilt, low motivation, negative self-talk, and anhedonia Status of Goals:: Objective 1- in progress. Pt?s DSM-5 scores for depression has decreased since admission by 25%. Pt has been using opposite action and following through with his behavioral activation goals. However, pt?s negative thinking patterns continue to persist and pt continues to endorse guilt. Objective 2- complete. Pt reports accomplishing at least one self-care or household task per day. Team Recommendations:: Treatment team encourages pt to continue working on these goals to increase motivation and reduce guilt and negative thinking. It is recommended to have a family session with pt and his . Pt also encouraged to continue setting daily goals and establish outpatient services. Problem #2 Problem Name:: anxiety and panic symptoms Status of Goals:: Objective 1- in progress. Pt?s DSM-5 scores for anxiety have decreased by 25% since admission. Pt also reports improved sleep and pt has been driving himself to IOP. Encouraged ongoing work as pt?s scores for anxiety are still scores as moderate in severity. Objective 2- complete. Pt has been taking care of his horses, exercising, and doing things around the house on a more consistent basis. Team Recommendations:: Treatment team encourages pt to continue working on this this goal to further decrease anxiety and improve overall functioning. Pt can benefit from continuing to work on reducing catastrophizing and increasing stress management skills.
--- NOTE | 2021-08-25 09:00 | BH.SGPN.GN ---
Behaviors/Verbalizations/Mental Status: []Pt alert and oriented, neatly dressed and groomed. Eye contact good. Motor activity appropriate. Speech within normal limits. Affect constricted, mood euthymic. Thoughts linear, logical, no signs of hallucinations or delusions. Reviewed pt?s symptom tracker, no risk for suicidal ideation, plan, or intent as of 08/25/21. Client Response/Progress/Benefit: P[]Pt responded well to session, attentive and quiet. Pt reports feeling thankful this morning as pt had a good weekend in [place] with his . Pt shared a month ago he would not have been able to make it through a trip like this one and he was able to enjoy himself. Pt reported that he also went to sikhism over the weekend and got to socialize. Pt's stressor today is that he is still trying to establish a daily routine which is causing some anxiety. Pt appeared to benefit from reflecting on gains in reduced isolation and anxiety. Will continue IOP tx to prevent decompensation, increase application of coping skills, and improve daily functioning. Narrative Note: []
--- NOTE | 2021-08-25 10:13 | BH.SGPN.GN ---
Behaviors/Verbalizations/Mental Status: []Client alert and oriented, casually dressed and groomed. Eye contact fair to good. Motor activity appropriate. Speech within normal limits, quiet and providing limited input. Affect constricted, mood anxious. Thoughts appearing distracted or thought blocking in nature, no signs of hallucinations or delusions. Client Response/Progress/Benefit: []Pt semi-engaged throughout AEB taking notes and listening attentively; however at times appeared distracted by own thoughts and struggled to provide input throughout. Attentive during psychoeducation and nodding as group discussed the importance of goal-setting with the group. Pt appeared to benefit from discussion reviewing benefits of goals. Group identified potential benefits to include: they motivate, increase self-confidence, provide a sense of accomplishment, help you begin to create healthier habits, and provide a sense of purpose. Group also worked together to identify barriers to goal-setting which included; fear of failure, lack of motivation, depression, ?I don?t care attitude?, and lack of support from others. Benefited from increased awareness of benefits and barriers to goal-setting.Progress limited given variability of engagement. Pt will continue in IOP to prevent decompensation, increase engagement and further stabilize mood, as well as further improve daily functioning. Narrative Note: []
--- NOTE | 2021-08-25 11:10 | BH.SGPN.GN ---
Behaviors/Verbalizations/Mental Status: []Client alert and oriented, casually dressed and groomed. Eye contact fair. Motor activity restless. Speech within normal limits. Affect constricted, mood anxious. Thoughts linear, logical, no signs of hallucinations or delusions. Client Response/Progress/Benefit: []Pt was an engaged participant in group discussions and activities. Pt struggled with completing goal setting worksheet, recreated goal several times. Pt identified a SMART goals for the next week is to: drink 4 glasses of water daily and complete stretching exercises 4 times a week. Identified forgetfulness as potential barrier to completing this goal. Pt able to identify several solutions, such as asking to help remind him and making a note, that can help overcome identified barriers. Benefited from group by being able to utilize SMART educate to create a goal. Pt to continue IOP to continue use of healthy coping skills, decrease anxious symptoms and prevent decompensation.
--- NOTE | 2021-08-25 15:15 | BH.MDN ---
Multi-Disciplinary Note - Note 30-min Individual Time Started:: 12:00 Date: 08/25/21 Purpose of session/treatment goals addressed:: To process the weekend, review homework, and address current stressors. Eye Contact:: Fair Motor Activity:: Appropriate Appearance:: Neat Speech:: Soft Mood:: Anxious, Other - confused Affect:: Constricted Thoughts:: Circular - pt struggling today with verbalizing thoughts., No evidence of hallucinations/delusions noted Staff Interventions:: thought challenging, strengths perspective, reviewed DSM-5, goal setting Client Response:: Pt responded well to session, open to meeting with therapist. Pt just finished group and reported struggling to complete the goal setting worksheet. Pt was able to come up with a goal, but he was unable to identify barriers and how pt would put this into practice. Pt shared he does not normally write out goals I just do them and he appeared to feel conflicted about not completing the worksheet. Discussed that it was okay for pt to not complete something and have his own goal setting style. Pt less vocal and unable to gather if pt was ruminating as pt did not share his thoughts. Discussed other goals pt could work towards like using his exercise machine more often and continuing to take care of his horses. Reflected on pt's progress since starting IOP and pt struggled to give himself credit. Pt reminded that it is okay if he does not follow the exact format of worksheets and that pt has done well with following through with goals so far in IOP. Risks/Concerns:: Pt denies any suicidal ideations, plan, or intent as of 08/25/21. Pt denies any HI. Pt did appear to be struggling today with verbalizing his thoughts and writing down ideas on a worksheet. This was something pt struggled with when he first started treatment. Will continue to monitor. Progress Toward Goals/Plan:: Pt reports he has been functioning much better at home and pt shared he was able to go to [place] with his for the weekend which is significant. Pt also reports improved motivation and self-care. However, during group sessions today, pt appeared to struggle with completing the worksheets and was less vocal during individual session. IOP staff will continue to monitor this as well as medications. Pt to continue IOP tx to promote mood stability, increase application of healthy coping skills, and reduce negative thinking patterns. Time Stopped:: 12:30
--- NOTE | 2021-08-27 09:00 | BH.SGPN.GN ---
Behaviors/Verbalizations/Mental Status: []Eye contact is good. Motor activity is appropriate. Appearance is casual. Speech is appropriate. Mood is euthymic. Affect is congruent. Thoughts are linear and logical. No evidence of psychosis. Reviewed daily symptom tracker sheet with no reports of suicidal ideations, plan, or intent. Client Response/Progress/Benefit: []Client was engaged throughout group session sharing and listening attentively to others. Client reported his emotion as ?frustrated? due to personal situations that he preferred not to disclose during group, though he stated he is weighing the pros and cons of a decision. Appeared to benefit from supportive group environment. Client discussed going for a walk with his and speaking with a few of his neighbors. Client stated he practiced the five senses grounding technique during this walk, which is progress. Client discussed working toward goals he had set earlier in the week. Progress noted AEB client?s report of practicing the five senses grounding technique and working toward his goals. Will continue IOP treatment to continue decreasing rumination and increasing application of healthy coping skills to improve daily functioning. Narrative Note: []
--- NOTE | 2021-08-27 10:15 | BH.SGPN.GN ---
Behaviors/Verbalizations/Mental Status: []Client alert and oriented, casually dressed and groomed. Eye contact fair. Motor activity appropriate. Speech within normal limits. Affect constricted, mood anxious. Thoughts linear, logical, no signs of hallucinations or delusions. Client Response/Progress/Benefit: []Client responded well to treatment AEB sharing and listening attentively to others. Client participated in group discussion defining taking action. Group identified barriers to taking action. Client attentive to psychoeducation and discussion about what symptoms and behaviors take control over functioning. Client identified: anxiety about taking care of things in the moment, getting upset over small things, and isolation as what takes control over their functioning too frequently. Client reported he would be happier, increased self confidence and less stressed if he could take back some control over his life. Client stated trying to live in the moment and setting goals as a strategies he is using now that has been helping him feel better. Appeared to benefit from increased self-awareness and knowledge regarding examples and barriers to taking action. Will continue IOP treatment to continue improving healthy coping skills, improve daily functioning and prevent decompensation.
--- NOTE | 2021-08-27 11:13 | BH.SGPN.GN ---
Behaviors/Verbalizations/Mental Status: []Client alert and oriented, neatly dressed and groomed. Eye contact fair. Motor activity appropriate. Speech within normal limits. Affect constricted, mood anxious. Thoughts linear, logical, no signs of hallucinations or delusions. Client Response/Progress/Benefit: []Client responded well to session, taking notes and participating in worksheet discussion. Client identified they want to take action on reducing catastrophizing thinking by asking himself on a 1-10 scale ?where would this problem fall.? Identified talking with his , taking deep breaths, going for walks, and stopping and thinking things through before reacting as strategies that can help client follow through with the goal. Appeared to benefit from identifying a small goal to benefit mental health. Client to continue IOP to gain emotional regulation skills, reduce negative thinking, and improve daily functioning. Narrative Note: []
--- NOTE | 2021-08-27 12:34 | PCM.BH.PN ---
Progress Note Progress Note: History of Present Illness/Interim History: [] Patient is a 66-year-old male being treated for depression at the [facility] behavioral health IOP program. He was seen in follow-up and I last saw the patient 2 weeks ago. The patient was seen with his . They state that the patient is slowly improving and he is somewhat better. He has been able to do more with his and at home but certain things still make him really upset. The states that they received a bill that the patient thought he had paid but he had not paid it. This resulted in the patient saying oh now and laying on the floor and having somewhat of an emotional reaction to finding this out. This happens sometimes 2-3 times a week. This was not a panic attack and he denies any panic attacks recently. His sleep is better at 6 to 8 hours a night. He has not had any crying since last visit. No passive thoughts of . He denies suicidal ideation homicidal ideation hallucinations or delusions. He has had some worrying and some anxiety but nothing approaching a panic attack. He has decreased the Ativan as discussed at last visit and feels he can go down further now as it somewhat sedates him. The patient and his feel he is much better overall cognitively and intellectually but not necessarily back to normal yet. In addition the staff noticed evidence of sinus nystagmus at times and the patient. I discussed this with him and the and the patient say the patient has had nystagmus since . He also has lazy eye. Current Psychiatric Medications: [] Abilify 4 mg p.o. nightly. (X3 weeks); Ativan 0.25 mg twice a day (decreased 2 weeks ago). Mental Status Examination: [] Patient is a 66-year-old male who is casually dressed and groomed with good hygiene. He has no psychomotor agitation or retardation. There is occasional nystagmus seen but at times there it resolves and is not constant. Response latency is back to normal but the patient is more reticent today than at last visit. Eye contact is good and speech is normal rate and rhythm and fluent with no pressure. Thought process is goal-directed and organized. Thought content: There is no evidence of passive thoughts of , suicidal ideation, homicidal ideation, hallucinations or delusions. He shows evidence of catastrophizing when he perceives negative happenings. Reality testing is intact. Judgment is intact. Insight is fair. Impulsivity is mild to moderate. Diagnoses: [] 1. Major depressive disorder, recurrent, severe without psychosis 2. Generalized anxiety disorder 3. Panic disorder 4. Rule out health anxiety disorder Plan: [] The patient will continue the IOP program at [facility] as the structure, support, education and group therapy will hopefully prevent worsening of the patient's symptoms which could require hospitalization. He felt safe during the interview and if it anytime he does not feel safe he will let us know or go to the emergency room. The risk, options, possible complications and side effects of the medications were again discussed with the patient and his and they understand and accept them. The patient understands that he should stay on this medication for at least 6 months and should probably be still on some medication for depression for the rest of his life. He agrees to decrease his Ativan to 0.25 mg p.o. once in the evening. He will continue his Abilify at 5 mg p.o. daily nightly. He will continue to follow-up with his outpatient providers and I will see the patient in follow-up in 2 weeks or as needed.
--- NOTE | 2021-08-29 09:00 | BH.SGPN.GN ---
Behaviors/Verbalizations/Mental Status: [] Eye contact is good. Motor activity is appropriate. Appearance is casual. Speech is Appropriate. Mood is euthymic. Affect is full. Thoughts are linear and logical. No evidence of psychosis. Reviewed daily check in sheet and no reports of suicidal ideations or intent. Client Response/Progress/Benefit: [] Pt participated when prompted. Attentive. Daily symptom tracker notes 3/5 for anxiety/anger and 2/5 for depression. Mental health wins include completing chores around the house and lawn. Utilizing developing and following through with SMART goals. States I'm doing well. Brief check it which is typical for patient. Progress noted. Benefited from group support and encouragement. Will continue in IOP to maintain gains and prevent decompensation. Narrative Note: []
--- NOTE | 2021-08-29 10:15 | BH.SGPN.GN ---
Behaviors/Verbalizations/Mental Status: []Eye contact is good. Motor activity is appropriate. Appearance is casual and grooming tended to. Speech is Appropriate. Mood is anxious. Affect is constricted. Thoughts are linear and logical. No evidence of psychosis Client Response/Progress/Benefit: []Pt receptive of session, engaged throughout AEB taking notes and actively listening throughout discussion. Continues to provide limited input unless prompted. Appeared to connect with group topic of cognitive distortions and the impact of thought patterns on mental health, coping behaviors, and relationships. Attentive during group discussion on the influence of media, environment, past experiences and current mood on vulnerability to distorted thought patterns. Appeared to benefit from gaining insight on distorted thinking patterns and influence of distortions on maintaining unhealthy maintenance cycles. Progress remains variable as pt negative thought patterns and core beliefs continue to impact mood stability and ability to see own progress. Recommended continued IOP treatment to improve mood stability, continue to promote health thought challenging, and prevent decompensation. Narrative Note: []
--- NOTE | 2021-08-29 10:20 | BH.SGPN.GN ---
Behaviors/Verbalizations/Mental Status: []Client alert and oriented, casually dressed and groomed. Eye contact good. Motor activity appropriate. Speech within normal limits. Affect congruent, mood euthymic. Thoughts linear, logical, no signs of hallucinations or delusions. Client Response/Progress/Benefit: []Client responded well to session AEB listening attentively to others. Group discussed the definition of cognitive distortion, with client appearing engaged throughout. Clinician provided psychoeducation on ten types of cognitive distortions, their costs, and what to do to manage them. During the clinician's presentation client appeared connected and took notes throughout. Client identified cognitive distortions he experiences most often, including minimization/magnification, shoulding, and jumping to conclusions. Appeared to benefit from increased knowledge of cognitive distortions and self-awareness. Will continue IOP treatment to continue decreasing rumination and increasing application of healthy coping skills to increase daily functioning. Narrative Note: []
--- NOTE | 2021-09-01 09:00 | BH.SGPN.GN ---
Behaviors/Verbalizations/Mental Status: [] Eye contact is fair. Motor activity is appropriate. Appearance is casual. Speech is Appropriate. Mood is anxious. Affect is flat. Thoughts are linear and logical. No evidence of psychosis. Reviewed daily check in sheet denies suicidal ideation, plan or intention to date. Client Response/Progress/Benefit: [] Pt was an engaged participant in group discussion. Attentive to others. Pt shared mental health positive as facetiming with his grandchild that lives in [place]. Pt struggled with identifying mental health positives. With help pt reported he has been doing his stretches more often. Pt reported current stressor is not feeling able to complete things he used to do. Benefited from group support, encouragement, and feedback. Will continue in IOP to prevent decompensation, decrease anxious symptoms, and increase use of consistent healthy coping skills.
--- NOTE | 2021-09-01 10:07 | BH.SGPN.GN ---
Behaviors/Verbalizations/Mental Status: []Client alert and oriented, casually dressed and groomed. Eye contact good. Motor activity appropriate. Speech within normal limits. Affect congruent, mood euthymic. Thoughts linear, logical, no signs of hallucinations or delusions. Client Response/Progress/Benefit: []Client responded well to session AEB listening attentively to others. Client appeared connected to group discussion of the benefits and barriers of making change, taking notes throughout. Client participated in experiential activity illustrating the emotions that go along with making change, and how they can be both positive and negative, appearing engaged throughout group processing. Clinician provided psychoeducation on the cognitive triangle, discussing how thoughts, emotions and behaviors are connected. Appeared to benefit from increase knowledge of the benefits and barriers to making change, as well as how emotions are affected by change. Will continue IOP treatment to continue decreasing rumination and increasing positive self-talk to improve daily functioning. Narrative Note: []
--- NOTE | 2021-09-01 11:10 | BH.SGPN.GN ---
Behaviors/Verbalizations/Mental Status: []Client alert and oriented, neatly dressed and groomed. Eye contact fair. Motor activity appropriate. Speech within normal limits. Affect constricted, mood anxious. Thoughts linear, logical, no signs of hallucinations or delusions. Client Response/Progress/Benefit: []Client responded well to session, attentive. Did well to process activity and work with group to relate the strategies used to overcome barriers in the activity to managing change in own life. Client identified a change they would like to make as challenging negative self-talk and reducing negative thinking. Client reports barriers to change as difficulty reframing thoughts and focusing too much on the negative. Client set a goal of writing out one accomplishment each night to challenge his negative thinking. Appeared to benefit from identifying a small goal to work towards. Client will continue IOP tx to reduce negative thinking patterns, improve mood stability, and improve daily functioning. Narrative Note: []
--- NOTE | 2021-09-03 11:05 | BH.SGPN.GN ---
Behaviors/Verbalizations/Mental Status: []Pt alert and oriented, neatly dressed and groomed. Eye contact good. Motor activity appropriate. Speech within normal limits. Affect flat, mood depressed and confused. Thoughts linear, logical, no signs of hallucinations or delusions. Client Response/Progress/Benefit: []Pt receptive of session, engaged throughout AEB pt actively listening and contributing to discussion, as well as taking notes. Pt completed worksheet identifying personal pitfalls impacting mental health progress. Pt identified the following pitfalls: procrastinating, avoiding and isolating, and catastrophizing. Group learned different coping skills to help manage pitfalls. Pt selected the following coping skills to help with pitfalls: rating the issue on a 1-10 scale, walking, setting small goals, and thought challenging. Benefited from identifying personal pitfalls and strategies to overcome these pitfalls. Will continue IOP tx to reduce guilt, depressive, and negative thinking patterns. Narrative Note: []
--- NOTE | 2021-09-03 13:03 | PCM.BH.PN_ITS ---
Progress Note Progress Note: History of Present Illness/Interim History: [] The patient is a 66-year-old male who is seen in follow-up for depression at the [facility] behavioral health IOP program. I last saw the patient 1 week ago. I reviewed an email from his and also spoke with the patient today. The patient's states that she feels that he may be a little worse in terms of his mood in the last few days. His sleep has improved with the trazodone and he is not having any severe anxiety according to his and is eating much better and is eating pretty well. But she feels he is getting more pessimistic and unmotivated. She states that he repeatedly ruminates negatively I do not know what to do. I am not getting better. And nothing is helping. He is having trouble focusing and he is not wanting to drive which is how he started here but he was driving a week before. The patient discontinue the Ativan 1 week ago because he felt he was too sedated on it. He did not increase his Abilify yet. Current Psychiatric Medications: [] Abilify 4 mg p.o. nightly (x4 weeks); Ativan 0.25 mg discontinued by patient 1 week ago;.; Trazodone for sleep. Mental Status Examination: [] Patient is a 66-year-old male who is casually dressed and groomed with good hygiene and is seen wearing a mask due to the pandemic. He has some mild psychomotor retardation. Nystagmus occurs at times but this is a chronic lifelong problem for him. Response latency is normal but the patient is tearing up at times. Eye contact is good and speech is normal rate and rhythm and fluent with no pressure. Thought process is goal- directed and organized. Thought content: There is no evidence of passive thoughts of , suicidal ideation, homicidal ideation, hallucinations or delusions. The patient still shows evidence of catastrophizing and perseverating on the fact that he does not feel he is getting better. Reality testing is intact. Judgment is intact. Insight is fair but limited. Impulsivity is moderate. Diagnoses: [] 1. Major depressive disorder, recurrent, severe without psychosis 2. Generalized anxiety disorder 3. Panic disorder 4. Rule out health anxiety disorder Plan: [] The patient will continue the IOP program at [facility] as the structure, support, education and group therapy will hopefully prevent worsening of the patient's symptoms which could require hospitalization. He felt safe during the interview and if it anytime he is not feel safe he will let us know or go to the emergency room. The risk, options, possible complications and side effects of the medications were again discussed with the patient and he understands and accepts these. The patient and I had a long discussion about the fact that he had a severe episode similar to this in 2019 which did resolve on Prozac after he was admitted to the hospital. The patient was noted to be almost catatonic at that time in 2019.. The patient agrees to continue the Abilify at the current dose. He agrees to take Ativan if he needs it for severe anxiety. He agrees to start Viibryd or vilazodone 10 mg p.o. daily. He understands that this is an antidepressant and we will not raise it to a high level but it may help his depression and his cognition. The patient is given the option of admission to the hospital for ECT or going somewhere to get intranasal ketamine but he refuses these options. I will see the patient in 1 week in follow-up and he may also needs to get an outpatient psychiatrist as soon as possible.
--- NOTE | 2021-09-03 14:50 | BH.MDN ---
Multi-Disciplinary Note - Note 45-min Individual Time Started:: 09:00 Date: 09/03/21 Purpose of session/treatment goals addressed:: To address current symptoms, challenge distortions, and identify strategies to improve mood. Eye Contact:: Fair Motor Activity:: Slowed Appearance:: Casual Speech:: Soft, Other - slow responses Mood:: Anxious, Dysthymic Affect:: Flat Thoughts:: Other - ruminations Staff Interventions:: thought challenging, CBT techniques, strengths perspective, goal setting, other - gave pt a worksheet on tips to challenge negative thinking. Encouraged to share this with his . Client Response:: Pt was less verbal during session today and reports feeling like I'm not getting better. Pt shared he is having a hard time seeing any positives today or in the past week. Pt ruminating on I should be doing more and I want to be like I was before which reinforces guilt, hopelessness, and lack of motivation. Pt also ruminating today because he did not drive himself to group this week and he had been doing this. Discussed how this increases pt's guilt, depression, and negative thinking. Attempted to challenge distortions and pt able to acknowledge the distortions, but struggled to reframe or acknowledge any personal credit. Pt shared he has been second-guessing a lot and he feels like he is not keep up during group which causes pt to ruminate more. Reviewed potential strategies for his such as having the notes copied. Discussed the importance of self-compassion and realistic expectations in treatment as everyone has setbacks. Encouraged pt to practice identifying positive changes he has made in the past month to help combat distortions. Pt also given a worksheet to use with his to help identify and challenge negative thinking. Encouraged to continue with his behavioral action goals. Risks/Concerns:: Pt denies any suicidal ideations, plan, or intent as of 09/03/21. No HI. Progress Toward Goals/Plan:: Pt presents depressed today and shared he feels he is not getting better. Pt?s emailed [facility] staff and stated she is worried pt is getting more pessimistic and unmotivated. However, pt?s shared pt has been less anxious, sleeping much better, and is eating well which is progress. Pt endorses ruminations, guilt, and lack of motivation. Pt also reports he is ?not comprehending things like I used to.? Pt to meet with IOP psychiatrist today and will discuss alternative medication recommendations. Pt also needs outpatient counseling and psychiatry. Will continue IOP tx to prevent decompensation, improve daily functioning, and reduce negative thought patterns. Time Stopped:: 09:50
--- NOTE | 2021-09-03 15:41 | BH.COMM_ITS ---
Communication Note - Communication with Client Communication Note: Spoke with pt's on the phone to update her on pt's recent medication change and symptoms, schedule a family session, and to provide information for outpatient psychiatry and counseling at [facility].
--- NOTE | 2021-09-04 09:00 | BH.SGPN.GN ---
Behaviors/Verbalizations/Mental Status: [] Eye contact is poor. Motor activity is appropriate. Appearance is casual. Speech is soft/slow. Mood is depressed. Affect is flat. Thoughts are linear and logical. No evidence of psychosis. Reviewed daily check in sheet and no reports of suicidal ideations or intent. Client Response/Progress/Benefit: [] Pt participated only when prompted. Attentive. Emotion for today is overwhelmed. States that he is anxious about upcoming medication changes and is focusing on possible negative impact of this. Group tried to reframe these thoughts and gave examples of medication changes that were beneficial. Mental health wins include sleeping better and went on walk with yesterday and talked with neighbors. Regression noted in the past week. Pt is not as engaged in group and interacting less with peers. Will continue in IOP to prevent decompensation and improve functioning. Narrative Note: []
--- NOTE | 2021-09-04 10:05 | BH.SGPN.GN ---
Behaviors/Verbalizations/Mental Status: []Client alert and oriented, casually dressed and groomed. Eye contact good. Motor activity appropriate. Speech within normal limits. Affect congruent, mood euthymic. Thoughts linear, logical, no signs of hallucinations or delusions. Client Response/Progress/Benefit: []Client responded well to session AEB listening attentively to others. Client was engaged throughout group discussion defining boundaries and why having healthy boundaries is important. Clinician provided psychoeducation on the types of boundaries, including physical, emotional, and intellectual. Client nodded and took notes throughout, appearing connected to others as they shared personal examples of types of boundaries. Client appeared to benefit from increased knowledge of the types of boundaries and increased self-awareness of personal boundaries. Will continue IOP treatment to continue increasing mood stability and anxiety management skills to improve daily functioning Narrative Note: []
--- NOTE | 2021-09-04 11:18 | BH.SGPN.GN ---
Behaviors/Verbalizations/Mental Status: []Client alert and oriented, casually dressed and groomed. Eye contact fair to good. Motor activity appropriate. Speech within normal limits, limited input provided. Affect constricted, mood anxious, depressed, agitated. Thoughts linear, logical, no signs of hallucinations or delusions. Client Response/Progress/Benefit: []Pt listening to peers and taking notes throughout, however appearing to grow frustrated by difficulties in keeping up with group discussion and becoming distracted by own thoughts. Pt attentive during continued psychoeducation on the different boundary types as well as the various boundary setting styles. Pt struggled to identify a boundary setting style he most connects with and appeared to be experiencing thought blocking when asked to apply the materials discussed to his own life. This continues to appear to be a barrier for pt and has impeded overall ability to internalize tx materials as well. Appears to benefit from support and structure of environment. Will continue IOP tx to prevent decompensation, further reduce distorted thought patterns, and improve depression management skills. Narrative Note: []
--- NOTE | 2021-09-08 10:15 | BH.SGPN.GN ---
Behaviors/Verbalizations/Mental Status: []Pt alert and oriented, neatly dressed and groomed. Eye contact fair. Motor activity appropriate. Speech within normal limits. Affect flat, mood anxious and depressed. Thoughts linear, logical, no signs of hallucinations or delusions. Client Response/Progress/Benefit: []Pt responded somewhat well to session, was taking notes, but declined to share aloud. Pt also shook his head no several times. Group discussed the benefits of managed anger and anger as a secondary emotion. Pt completed anger iceberg worksheet, reporting outward personal signs of anger as making shutting down, but he reported he struggled with the topic today because he does not experience anger to others. Discussed how anger can be towards self. Identified underlying emotions that contribute to anger including being anxious and overwhelmed. Appeared to benefit from increased knowledge of the underlying emotions that impact anger and increased self-awareness of the internal and external consequences of anger. Pt will discuss with his the plan to stay IOP or go to individual counseling (see multidisciplinary note). Narrative Note: []
--- NOTE | 2021-09-08 11:15 | BH.SGPN.GN ---
Behaviors/Verbalizations/Mental Status: []Client alert and oriented, casually dressed and groomed. Eye contact fair. Motor activity appropriate. Speech within normal limits, limited input provided. Affect constricted, mood depressed, anxious, irritable. Thoughts linear, logical, no signs of hallucinations or delusions. Client Response/Progress/Benefit: []Pt quiet but was attentive throughout AEB listening to discussion and taking notes, continues to struggle with providing input or internalizing materials discussed. Pt struggles with placing high expectations on his responses to questions throughout discussion which inhibits his ability to engage and continues to reinforce anxiety and depression. Pt reported connecting with psychoeducation portion reviewing importance of identifying physical warning signs for anger. Listened as group brainstormed healthy coping skills for better managing anger which included: deep breathing, journaling, focusing on what?s in their control in the moment, exercise, communicating with supports when calm, and self-reflection. Pt appeared to benefit from supportive group environment. Pt did not share his identified warning signs for anger or skills he would be willing to use in better managing anger sx. Will continue IOP tx to prevent decompensation, and improve mood stability, and promote use of healthy coping skills for better management of anxiety. Narrative Note: []
--- NOTE | 2021-09-08 12:25 | BH.MDN ---
Multi-Disciplinary Note - Note Family Time Started:: 08:30 Date: 09/08/21 Purpose of session/treatment goals addressed:: To include pt's in pt's treatment by providing psychoeducation, identifying support needed, and discussing barriers. Another goal was to determine pt's benefit from IOP and discuss alternative treatment options. Eye Contact:: Fair Motor Activity:: Appropriate Appearance:: Casual Speech:: Soft Mood:: Anxious, Irritable, Dysthymic Affect:: Flat Thoughts:: Other - potential thought blocking. Pt reported I will forget what we talked about when I leave., No evidence of hallucinations/delusions noted Staff Interventions:: thought challenging, psychoeducation on: - depression and anxiety, CBT techniques, strengths perspective, goal setting, other - discussed plan of care and alternative options to IOP Client Response:: Pt was anxious and mostly quiet during session, pt's did majority of the talking. Pt's shared that yesterday was a decent day, but overall pt is not doing well. Pt continues to ruminate, use should statements, and feel easily overwhelmed. Pt's stated over the weekend pt ruminated excessively about not mowing the neighbors grass well enough, what pt should say in IOP group, and not talking to people at an event he and his went to. Processed this and pt determined that he worries a lot about what people think of him. Pt also shared that being in group makes him anxious and he feels that he does not participate enough/know what to say. Pt continues to be forgetful which also adds to the anxiety of attending group. Pt's also shared belief that pt has perfectionist expectations of himself, but pt did not agree with this. Pt does admit that he wants to be the way he was before he started struggling with anxiety and depression. Discussed self-compassion and what pt can do to improve functioning. Pt had been doing better from 08/15/21-08/27/21 and during that time pt was exercising routinely, talking to friends, and doing more chores. Discussed getting back into this routine as well as realistic expectations. Also brain-stormed ways to manage catastrophizing thinking and pt and his were given a handout. Pt's asked about pt taking Ativan again, but pt reports being hesitant. Pt is prescribed this by [facility] psychiatrist. Pt had extreme difficulty giving himself any credit and challenge his perspective. Encouraged self-care for pt's and encouraged the couple to maintain healthy boundaries to prevent caregiver fatigue. Pt was given the option to stay for group or leave early to weigh the pros and cons of IOP. Pt chose to stay today. Risks/Concerns:: Pt denies any suicidal ideations, plan, or intent as of 09/08/21. Pt also denies any thoughts of . No HI. Pt does not present with any symptoms of psychosis or appear internally stimulated. However, pt does not appear to be benefitting from IOP per his report. Progress Toward Goals/Plan:: Pt's problems and symptoms are ongoing and consistent with symptoms described last week. Pt continue to endorse catastrophizing, has a negative perception of self and the future, and has not been able to do just about anything. Pt is unsure about staying in the program as pt feels he has not improved and that the stress of sharing in group makes him feel more overwhelmed. Pt has an appointment with Dr. Hartley for counseling Wednesday09/15/[address] Barone 10/13/21. Pt and will talk tonight and decide what they want to do about pt continuing or discharging from [facility]. Time Stopped:: 09:35
--- NOTE | 2021-09-10 11:59 | PCM.BH.PN_ITS ---
Progress Note Progress Note: History of Present Illness/Interim History: [] The patient is seen today with his and he is a 66-year-old male who is seen in follow-up for depression and anxiety at the [facility] behavioral health IOP program. I last saw the patient 1 week ago and at that time we added Viibryd but it was too expensive so we went with Lexapro 10 mg daily and he has been taking this for 6 days now. He is tolerating the medication but he and his state that his mood and anxiety are about the same or little worse than last week. He had improved during the first month of treatment or so but this has plateaued. He perseverates on anxious thoughts and mutters to himself at times. His says that he says things like I cannot and wonders what might happen or could happen and it always involves catastrophic thinking. He adamantly denies any hallucinations or delusions. He is responsive but is less outgoing and and is more reticent than he was several maybe several weeks ago. He is however able to have a conversation much better than he was when he started the program. The patient has been having trouble attending the groups lately. His says she did give him Ativan 0.2 field 5 mg once and it did help him but they have been reluctant to use the medications. His sleep is okay overall with the trazodone. He is still having trouble focusing and is now afraid to drive here again which is how he was when he started the program. There is no evidence of hallucinations, delusions, passive thoughts of , suicidal ideation, plan for suicidal or homicidal ideation. He is ruminating negatively and perseverating somewhat on catastrophic anxious thinking. Current Psychiatric Medications: [] Abilify 5 mg p.o. nightly (x5 weeks); Ativan 0.25 mg 1 time in the last week and was discontinued by the patient; trazodone for sleep; Lexapro 10 mg p.o. daily (x6 days now). Mental Status Examination: [] Patient is a 66-year-old male who is casually dressed and groomed with good hygiene and is seen wearing a mask due to the pandemic. He has mild psychomotor retardation. Response latency is slightly increased but the patient is no longer tearing up. He is able to respond normally. Eye contact is good and speech is normal rate and rhythm and fluent with no pressure. Thought process is goal-directed and organized but he is less resident reticent than before. Thought content: There is no evidence of passive thoughts of , suicidal ideation, homicidal ideation, hallucinations or delusions. The patient remains perseverating on the fact that he does not feel he is getting better and anytime anything negative happens he catastrophize is the outcome and perseverates on it. Reality testing is intact. Judgment is fair. Insight is fair but limited. Impulsivity is moderate. Diagnoses: [] 1. Major depressive disorder, recurrent, severe without psychosis 2. Generalized anxiety disorder 3. Panic disorder Plan: [] The patient will not attend groups today at the [facility] program as he does not really feel able to do it. He felt safe during the interview and if it anytime he does not feel safe he will let us know or go to the emergency room. The risks, options, possible complications and side effects of the medications were again discussed with the patient and he understands and accepts these as does his . Long discussion again was had with the patient and they agree to restart the Ativan 0.25 mg up to 3 times a day as needed for anxiety. In addition they will increase the Abilify to 7.5 mg p.o. nightly. Discussed with him that the patient initially improved on the Ativan and the Abilify but they wanted to discontinue the Ativan because he felt he was too sedated. Discussed with the patient that in 2018 when he was admitted to the hospital with depression that was psychotic and approaching catatonia that this we do not want that outcome again and we are trying to prevent it. They have an appointment with a new psychiatrist but they are unable to get into see them until October 14. The patient should have follow-up in the next few weeks so I will plan to see the patient in 2 weeks for follow-up if he is unable to get into his new psychiatrist. Prescription was sent in today for a refill on the Ativan and the Abilify at 7.5 mg nightly.
--- NOTE | 2021-09-10 12:18 | BH.DS_ITS ---
Discharge Summary - Demographics Date of Admission:: 08/04/21 Discharge Date: 09/10/21 Presenting Problems at Admission:: Pt is a 66 year-old male with a history of MDD and NYA. Pt has a previous psychiatric admission to [facility] in 2019 due to suicidal ideations and irrational delusions. Pt has been decompensating since 06/22/21 per pt's 's report. Pt presents with brain fog, feeling overwhelmed, difficulty carrying on conversations, and second-guessing everything. Pt has a history of health-related anxiety and family history of possible Parkinson's Disease. Currently pt endorses poor sleep, poor appetite, low energy, low motivation, hopelessness, anhedonia, poor memory and concentration, and guilt. Pt also reports panic attacks, intrusive/obsessive thoughts, and ruminations. Denies any suicidal ideations or passive thoughts of . Pt's symptoms are currently impacting his overall functioning. Discharge Diagnoses:: Major depressive disorder, recurrent, severe without psychosis F 33.2; Generalized anxiety disorder; Panic disorder; Rule out health anxiety disorder Reason for Discharge:: [facility] staff, pt, and his agree that it is best for pt to discharge from [facility] as the group sessions trigger significant anxiety and appear to be making pt worse. Pt feels he is unable to focus and remember what was discussed which leads to significant ruminating. Pt will follow up with his new outpatient psychiatrist and his outpatient therapist. - Treatment Progress During Treatment & Response: Pt had improved during the first month of treatment or so but this has plateaued. Pt had a period of two weeks where he was more engaged in group and individual sessions and he was experiencing improved mood. See multidisciplinary and psychiatry notes for more information. Pt and now report that pt is doing worse in symptom severity and functioning. Pt is ruminating negatively and perseverating somewhat on catastrophic anxious thinking. Pt reported that group was increasing pt's anxiety and within the last week, pt struggled to remember what was discussed in group and had anxiety about group the night before attending. Issues Still to be Addressed:: Pt can continue to benefit from ongoing medication management at [facility] to prevent worsening of symptoms and monitor recent medication changes. Pt will follow up with an individual therapist and can benefit from working on cognitive distortions, unrealistic expectations, behavioral activation, goal setting, and stress management skills. Discharge Recommendations/Instructions:: Pt has an appointment with a new psychiatrist, Dr. Barone, at [facility], but pt is unable to get in until October 14. IOP psychiatrist is willing to see pt in 2 weeks for follow-up if he is unable to get into his new psychiatrist faster. Pt has an appointment on 09/15/21 with Naye Hartley for individual therapy. Discharge Handout: Complete Discharge Handout with client on aftercare options and continuity of care.
== END 2021-09-10 11:34 | disposition home or self-care (01) ==
LOC: BHIOP 08:18
PROVIDERS: PCP Family Medicine; Referring Provider Psychiatry & Neurology Psychiatry; Visit Provider Psychiatry & Neurology Psychiatry
DX: F33.2 Major depressive disorder, recurrent severe without psychotic features (principal); F41.1 Generalized anxiety disorder; F41.0 Panic disorder [episodic paroxysmal anxiety]; Z79.899 Other long term (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
CPT/HCPCS: S9480; 90832; 90834; 90847; 90853

== ENCOUNTER 2022-05-04 10:34 | Emergency (ER) | payer MEDICARE, SELFPAY ==
[2022-05-04 10:34] VITALS: BP 158/115; PULSE 87; RESP 18; TEMP 36.4; O2SAT 98; BMI 23.6
--- NOTE | 2022-05-04 11:21 | EX.ED.DYSGE1 ---
HPI History of Present Illness Chief Complaint: Flank Pain Informant: patient Onset/Context/Timing Onset: Days (3) Context: Sudden Onset Timing: Continuous Quality: Sharp Location: Left flank and left lower abdomen Worsened by: Eating Relieved by: Nothing Narrative Narrative: Patient presents with left flank pain that has been constant for the past 3 days. Patient states it began suddenly when he woke up 2 days ago. Patient describes the pain as sharp. Patient states the pain is over the left flank and left lower abdomen. Patient states it became worse after he ate 2 days ago. Patient states nothing seems to help with the pain. Patient denies any nausea or vomiting. Patient denies any dysuria or hematuria. Patient denies any fevers or chills. [facility] Medical History (Updated 05/04/22 @ 14:[address] Gera Barton DO) Arthritis Generalized anxiety disorder Kidney stone Major depressive disorder, recurrent severe without psychotic features Panic disorder Home Medications multivitamin (Multiple Vitamins tablet) 1 ea PO DAILY 01/12/18 [History Last Taken Unknown] mirtazapine 45 mg tablet 45 mg PO QHS 05/04/22 [History Last Taken Unknown] olanzapine 10 mg tablet 10 mg PO QHS 05/04/22 [History Last Taken Unknown] oxycodone-acetaminophen 5 mg-325 mg tablet 1 tab PO Q6H PRN PRN Pain 3 days #12 TABLETS 05/04/22 [Rx Last Taken Unknown] tumeric 100 mg-betty 150 mg-olive 50 mg-oreg 150 mg-caprylate capsule 1 cap PO DAILY 05/04/22 [History Last Taken Unknown] venlafaxine 150 mg capsule,extended release 24 hr 300 mg PO DAILY 05/04/22 [History Last Taken Unknown] Allergy/AdvReac Type Severity Reaction Status Date / Time No Known Allergies Allergy Verified 05/04/22 10:34 Surgical History Hx of arthroscopy of left knee Hx of arthroscopy of right knee Social History household members: spouse Smoking Status: Never smoker substance use type: does not use ROS ROS ED Constitutional Constitutional ED: Denies chills or fever(s) Eyes Eyes: Denies blurry vision or change in vision ENT ENT ED: Denies rhinorrhea or sore throat Cardiovascular Cardiovascular: Denies chest pain or palpitations Respiratory/Chest Respiratory/Chest: Denies cough or dyspnea Gastrointestinal Gastrointestinal: Reports abdominal pain; Denies nausea or vomiting Genitourinary Genitourinary ED: Denies dysuria or hematuria Musculoskeletal Musculoskeletal: Denies back pain or neck pain Integumentary Denies abscess or rash Neurologic Neurologic: Denies headache(s) or weakness Allergic/Immunologic Allergic/Immunologic ED: Denies mouth swelling or urticaria EXAM Physical Exam Const Vital Signs: 05/04/22 10:34 Temperature 97.6 F L Temperature Source Temporal Pulse Rate 87 Respiratory Rate 18 Blood Pressure 158/115 H Blood Pressure Mean 129 Pulse Ox 98 Oxygen Delivery Method Room Air Positive well nourished and well developed General Appearance ED: well developed and NAD HEENT Reports moist mucous membranes Neck supple and no JVD Resp normal respiratory effort and clear to auscultation bilaterally Cardio regular rate, regular rhythm and no murmurs GI normal to inspection, nondistended, normoactive bowel sounds Palpation: soft and tender LLQ and LUQ; Negative for guarding or rebound tenderness present Back/Spine General Back: CVA tenderness left Extremity normal to inspection General Extremety ED: Negative for edema or tenderness General Extremity: Negative for edema Neuro oriented x3, CN's II-XII intact bilaterally and no sensory deficits noted Sensorium / Orientation: alert Motor Exam: strength 5/5 throughout Psych mental status grossly normal Skin no rashes or lesions noted MDM MDM MDM Narrative Medical decision making narrative: Patient was given IV fluids, morphine, and Zofran. CBC was within normal limits. Comprehensive metabolic profile showed an elevated BUN of 26 and creatinine of 1.19. These were increased from previous results. Lipase was normal. Urinalysis does not show any evidence of urinary tract infection or hematuria. CT scan of the abdomen pelvis was obtained. There are bilateral nonobstructing renal calculi. There is left hydronephrosis and hydroureter with perinephric and periureteral stranding. There is no obstructive calculus noted at this time. This was interpreted by the radiologist and reviewed by myself. Patient was still having pain on reevaluation. Patient was given a repeat dose of morphine. Case was discussed with Dr. Najera. He recommended discharging the patient and will follow up in the office this week. Patient was advised of his findings. Patient was given a prescription for Percocet. Patient was instructed to return if worse in any way. Patient understood and was agreeable with the plan. All questions were answered. Lab Data Attestation: I reviewed the patient's lab results. Labs: Laboratory Results - last 24 hr 05/04/22 05/04/22 05/04/22 11:33 11:33 11:45 WBC 10.4 RBC 4.64 Hgb 13.6 Hct 41.8 MCV 90.1 MCH 29.3 MCHC 32.5 RDW Std Deviation 43.8 RDW Coeff of Rishi 13.4 Plt Count 260 MPV 8.7 Immature Gran % (Auto) 0.500 Neut % (Auto) 81.0 H Lymph % (Auto) 6.6 L Page % (Auto) 11.2 H Eos % (Auto) 0.4 Baso % (Auto) 0.3 Absolute Neuts (auto) 8.4 H Absolute Lymphs (auto) 0.69 L Nucleated RBC % 0 Sodium 135 L Potassium 4.4 Chloride 102 Carbon Dioxide 28.0 Anion Gap 5 BUN 26 H Creatinine 1.92 H Estim Creat Clear Calc 39.08 Est GFR (MDRD) Af Amer 45 L Est GFR (MDRD) Non-Af 37 L BUN/Creatinine Ratio 13.5 Glucose 114 H Calcium 9.1 Total Bilirubin 0.50 AST 19 ALT 26 Alkaline Phosphatase 107 Total Protein 7.5 Albumin 3.4 Globulin 4.1 Albumin/Globulin Ratio 0.8 L Lipase 38 L Urine Color Yellow Urine Clarity Clear Urine pH 5.0 Ur Specific [place] 1.020 Urine Protein 15 H Urine Glucose (UA) Normal Urine Ketones 50 H Urine Occult Blood 25 H Urine Nitrite Negative Urine Bilirubin Negative Urine Urobilinogen Normal Ur Leukocyte Esterase Negative Urine RBC 0-5 SEEN Urine WBC 0 SEEN Ur Squamous Epith Cells 0 SEEN Urine Bacteria 0 SEEN Urine Mucus 0 SEEN Radiography Diagnostic Testing: Clinical Impression(s) from Imaging Studies Abdomen/Pelvis CT 05/04/22 11:26 IMPRESSION: Bilateral nonobstructive intrarenal calculi. Moderate degree of left hydronephrosis and hydroureter in the perinephric and periureteric stranding on the left side without an obstructive calculus at this time. This most likely represents a recently passed calculus. Electronically Signed: Tyrese Bartlett MD at 12:40 EST , Discharge Plan Triage Chief Complaint: Flank Pain ED Provider: Gera Barton Dx/Rx/DC Orders Clinical Impression: Hydronephrosis, left, Bilateral renal stones Instructions: ED Kidney Stone, Passed Prescriptions: New oxycodone-acetaminophen [oxycodone-acetaminophen] 1 TABLET tablet 1 tab PO Q6H PRN PRN (Reason: Pain) 3 Days Qty: 12 0RF No Action multivitamin [Multiple Vitamins] 1 EACH tablet 1 ea PO DAILY venlafaxine 150 mg capsule,extended release 24hr 300 mg PO DAILY Label Comments: TAKE 2 CAPSULES BY MOUTH DAILY olanzapine 10 mg tablet 10 mg PO QHS Label Comments: TAKE 1 TABLET BY MOUTH AT BEDTIME mirtazapine 45 mg tablet 45 mg PO QHS Label Comments: TAKE 1 TABLET BY MOUTH AT BEDTIME zivmadw-pkiq-andls-oreg-capryl 100 mg-150 mg- 50 mg-150 mg Capsule 1 cap PO DAILY Primary Care Provider: Yrn Macedo Referrals: Yrn Macedo MD [Primary Care Provider] - 5-7 Days Mahesh Najera MD [Med Staff - Active Staff] - 2 Days Disposition Disposition: Home, Self Care
--- NOTE | 2022-05-04 11:26 | CT_ITS ---
STUDY: CT ABDOMEN AND PELVIS WITHOUT CONTRAST REASON FOR EXAM: Male, 66 years old. Left flank pain RADIATION DOSAGE (If Supplied By Facility): CTDIvol = ( 7.39 ) mGy, DLP = ( 365.37 ) mGycm TECHNIQUE: Transaxial images were obtained from the dome of the diaphragm to the symphysis pubis without oral contrast, and without intravenous contrast. Sagittal and coronal images were reconstructed. Individualized dose optimization techniques were used for this CT. COMPARISON: Comparison is made with prior study of 08/05/2019. FINDINGS: Minimal increased markings at the left lung base suggestive of a mild linear atelectasis. The visualized portions of the heart are within normal limits. Normal liver. Normal gallbladder and extrahepatic biliary system. Normal spleen. Normal pancreas. Normal bilateral adrenal glands. Multiple small right nonobstructive intrarenal calculi. Moderate degree of left hydronephrosis and left hydroureter with perinephric and periureteric stranding. No obstructive calculus is seen at this time. This may be due to a recently passed left ureteral calculus. Nonobstructive left intrarenal calculi. There is a small hiatal hernia. Normal small intestine. Normal colon. There is non-visualization of the appendix. There is scattered atherosclerotic calcification of the abdominal aorta and its major visceral branches, without a demonstrated aneurysm. Normal inferior vena cava. Normal retroperitoneum. Normal urinary bladder. Prostatic enlargement with indentation of the bladder base. Normal abdominal wall. There are mild degenerative changes of the visualized lumbar spine. CT/Abdomen/Pelvis without Cont IMPRESSION: Bilateral nonobstructive intrarenal calculi. Moderate degree of left hydronephrosis and hydroureter in the perinephric and periureteric stranding on the left side without an obstructive calculus at this time. This most likely represents a recently passed calculus. Electronically Signed: Tyrese Bartlett MD at 12:40 EST ,
[2022-05-04] MEDS: 0.9% Normal Saline 1,000 ML 1000 ML IV (11:42)
[2022-05-04] MEDS: Ondansetron 4 MG/2 ML Vial IV (11:42)
[2022-05-04] MEDS: Morphine 4 MG/ML Syringe IV ×2 (11:42→14:02)
[2022-05-04 11:46] LABS: Absolute Lymphocyte Count 0.69 X10^3/uL (0.83-4.51); Absolute Neutrophil Count 8.4 X10^3/uL (2.0-7.7); Basophil# 0.03 X10^3/uL; Basophil% 0.3 % (0-1); Eosinophil# 0.04 X10^3/uL; Eosinophils% 0.4 % (0-5); Hematocrit 41.8 % (40-54); Hemoglobin 13.6 g/dL (13.0-16.5); Lymphocyte # 0.69 X10^3/ul (0.83-4.51); Lymphocyte % 6.6 % (19-41); Mean Corp Hgb Conc 32.5 g/dL (32-36); Mean Corpuscular Hgb 29.3 pg (27.0-32.0); Mean Corpuscular Volume 90.1 fL (80-94); Mean Platelet Vol. 8.7 fl (6.2-12.0); Monocyte# 1.16 X10^3/uL; Monocyte% 11.2 % (0-10); NRBC Flagged by Analyzer 0 % (0-5); Neutrophil # 8.43 X10^3/uL (2.7-7.7); Platelet Count 260 K/mm3 (150-450); RBC Distribution Width CV 13.4 % (11.6-14.6); RBC Distribution Width SD 43.8 fl (35.1-43.9); Red Blood Count 4.64 M/mm3 (4.6-6.2); White Blood Count 10.4 K/mm3 (4.4-11.0)
[2022-05-04 12:01] LABS: ALB/GLOB Ratio 0.8 RATIO (0.9-2.4); AST(SGOT) 19 U/L (15-37); Alanine Aminotransfer ALT/SGPT 26 U/L (16-61); Albumin, Serum 3.4 g/dL (3.2-5.0); Alkaline Phosphatase 107 U/L (45-117); Anion Gap 5 (5-15); BUN 26 mg/dL (7-18); BUN/Creat Ratio 13.5 RATIO (10-20); Calcium,Total 9.1 mg/dL (8.5-10.1); Chloride 102 mmol/L (98-107); Creatinine, Serum 1.92 mg/dL (0.70-1.30); EST Glomerular Filtration Rate 37 mL/min (>60); Est Glom Filt Rate - Afr Amer 45 mL/min (>60); Estimated Creatinine Clearance 39.08 ml/min; Globulin 4.1 g/dL (2.2-4.2); Glucose 114 mg/dL (74-106); Lipase 38 U/L (73-393); Potassium 4.4 mmol/L (3.5-5.1); Protein, Total 7.5 g/dL (6.4-8.2); Sodium Level 135 mmol/L (136-145)
[2022-05-04 12:02] LABS: Bacteria 0 SEEN /hpf (None Seen); Mucous, Urine 0 SEEN /hpf (<or=2+); Squamous Epithelial Cells - UA 0 SEEN /hpf (0-5); White Blood Cells 0 SEEN /hpf (0-5)
[2022-05-04 12:05] LABS: Color, Urine Yellow (Yellow); Glucose, Dipstick Normal (Normal); Ketone-Dipstick 50 mg/dl (Negative); Leukocyte Esterase-Dipstick Negative /ul (Negative); Nitrite-Dipstick Negative (Negative); Occult Blood-Urine 25 /ul (Negative); Protein-Dipstick 15 mg/dl (Negative); Urine Bilirubin Dipstick Negative (Negative); Urine Clarity Clear (Clear); Urine Urobilinogen Normal (Normal)
[2022-05-04 12:12] LABS: Red Blood Cells-Urine 0-5 SEEN /hpf (0-5)
[2022-05-04 14:39] VITALS: BP 132/78; PULSE 63
== END 2022-05-04 14:39 | disposition home or self-care (01) ==
PROVIDERS: Emergency Provider Emergency Medicine; PCP Family Medicine; Visit Provider Emergency Medicine
DX: N13.2 Hydronephrosis with renal and ureteral calculous obstruction (principal); Z79.899 Other long term (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
CPT/HCPCS: 74176; 80053; 81001; 83690; 85025; 96361; 96374; 96375; 96376; 99283; J7030; J2405

== ENCOUNTER → 2022-06-03 | Outpatient (CLI) | payer MEDICARE, SELFPAY | END | disposition home or self-care (01) | LOC: LAB 09:30 | PROVIDERS: PCP Family Medicine; Referring Provider Urology; Visit Provider Urology | DX: R31.21 Asymptomatic microscopic hematuria (principal) | CPT/HCPCS: 87086; 87088 ==

== ENCOUNTER → 2023-03-02 | Outpatient (CLI) | payer MEDICARE, SELFPAY ==
--- NOTE | 2023-03-02 12:43 | SP.MBSS_ITS ---
Modified Barium Swallow Patient Information Study Date: 03/02/23 Study Time: 13:00 Direct Billable Minutes: 79 Total Minutes procedure & reportin Diagnosis: Dysphagia (R13.10) Referring Physician: Yrn Macedo Reason for Referral: Objectively assess swallow function, risk for aspiration, and determine recommendations for least restrictive diet textures and compensatory strategies to improve safety of swallow. Medical History: PMH: Panic disorder, Depression, Anxiety. The patient is a 67-year-old male who reports increased swallowing difficulty in the past year. He reports that dry or adhesive textures feel like they take extra effort to swallow. He denies sensation of retention with food or drink with the exception of taking medication. He reported that taking medications with applesauce helps. He denies coughing or choking with oral intake. He denies odynophagia. His PCP referred him for MBSS. Current Diet Ordered: Regular textures / Thin liquids Dentition: WNL Mental Status: WNL Respiratory Status: Oxygenating on Room Air Penetration-Aspiration Scale Penetration-Aspiration Scale: OBJECTIVE ASSESSMENT OF SWALLOW FUNCTION (QUANTITATIVE ? PER TRIAL): PENETRATION / ASPIRATION SCALE (POOLE): 1 = does not enter airway 2 = enters airway/above vocal folds/ejected 3 = enters airway/above vocal folds/not ejected 4 = enters airway/contacts vocal folds/ejected 5 = enters airway/contacts vocal folds/not ejected 6 = enters airway/below vocal folds/ejected 7 = enters airway/below vocal folds/not ejected despite effort 8 = enters airway/below vocal folds/no effort VIDEOFLOROSCOPIC SCALE SCORE (POOLE): Grade I = aspiration of material that has penetrated into the laryngeal vestibule, intact cough reflex Grade II = aspiration < 10 % of the bolus, intact cough reflex Grade III = aspiration of < 10 % of the bolus, reduced cough reflex or aspiration of > 10 % of the bolus, intact cough reflex Grade IV = aspiration of > 10 % of the bolus, reduced cough reflex Penetration-Aspiration Scale Score Thin Liquid via teaspoon: Result: 2= enter airway/above vocal folds/ejected Thin Liquid via teaspoon Trial 2: Result: 1= does not enter airway Thin liquids by small single cup sip: Result: 1= does not enter airway [place]/mildly thick by small single cup sip: Result: 1= does not enter airway Pudding via teaspoon with esophageal screen: Result: 1= does not enter airway ? Cookie: Result: 1= does not enter airway Comment: Cued effortful swallow to clear pharyngeal residue - little to no improvement. Thin liquids by small single straw sip: Result: 3= enters airways/above vocal folds/not ejected Thin liquids by sequential straw sips: Result: 2= enter airway/above vocal folds/ejected ? Cookie with chin tuck: Result: 1= does not enter airway Barium tablet with thin liquid with esophageal screen: Result: 1= does not enter airway Oral Phase Labial Seal: Escape beyond mid-chin ([employer] provided sip by tsp, otherwise good labial seal) Tongue Control During Bolus Hold: Cohesive bolus between tongue to palatal seal Bolus Preparation/Mastication: Timely and efficient chewing and mashing Bolus Transport/Lingual Motion: Delayed initiation of tongue motion Oral Residue: Residue collection on oral structures Pharyngeal Phase Initiation of Pharyngeal Swallow: Bolus head at posterior laryngeal surgace of epiglottis Soft Palate Elevation: No bolus between soft palate and pharyngeal wall Laryngeal Elevation: Partial superior movement thyroid cart/partial apprx aryt- epig petiole Anterior Hyoid Excursion: Partial anterior movement Epiglottic Movement: Partial inversion Laryngeal Vestibule Closure at Height of Swallow: Incomplete; narrow column of a ir/contrast in laryngeal vestibule Pharyngeal Stripping Wave: Present - diminished Pharyngoesophageal Segment Opening: Minimal distension and minimal duration; marked obstruction of flow Tongue Base Retraction: Wide column of contrast between tongue base & post. pharyngeal wall Pharyngeal Residue: Majority of contrast within or on pharyngeal structures Esophageal Phase Esophageal Clearance: Esophageal retention Treatment Strategies Effects of treatment strategies attemped:: Chin tuck = not effective in clearing pharyngeal residues. Effortful swallow = not effective in clearing pharyngeal residues. Liquid wash = effective in clearing pharyngeal residues. Double swallow (patient completes independently) = somewhat effective in clearing pharyngeal residues Diagnosis/Impression Diagnosis: Mild-Moderate oropharyngeal phase dysphagia (R13.12) Impression: The oral phase is primarily marked by... -Mildly delayed tongue motion for A-P transport -Mild oral residue after the swallow, which mostly cleared with independent initiation of multiple swallows as needed. The pharyngeal phase is primarily marked by... -Mildly decreased airway closure during the swallow due to decreased anterior hyoid excursion, epiglottic inversion, and laryngeal elevation. -Moderate pharyngeal residues due to decreased tongue base retraction, UES opening/duration, and pharyngeal stripping wave. -Laryngeal penetration of thin liquids via tsp and straw. Thin liquids via single straw sip did not fully eject from the laryngeal vestibule after the swallow with trace remaining. No aspiration observed during the study. Recommendations Diet: Regular Textures and Thin Liquids Comment: Add extra sauce/gravy to dry textures Compensatory Strategies: Small Bites, Small Sips, Slow Rate, Alternate bites/solids and sips/liquids (1-2 bites: 1 sip), Sitting upright and Remain sitting upright for 30 minutes after PO intake Recommend Repeat Modified Barium Swallow: TBD Need for Skilled Speech Therapy Services: Yes Comment: Will recommend the patient for outpatient dysphagia therapy to address deficits in oropharyngeal swallow function. Will recommend the patient for oropharyngeal strengthening to improve tongue base retraction, laryngeal elevation/hyoid excursion, pharyngeal contraction, and duration of UES opening (Liliam, Johny, CTAR, Effortful, Shaker). The patient would benefit from thorough education regarding diet recommendations and recommended compensatory strategies. Recommended Referrals: GI Consult (retention of contrast in upper-mid esophagus at the end of the study) Education Completed: 1. Described result of evaluation., 2. Pt understands evaluation & agrees with goals and treatment plan. and 7. Pt requires further education on strategies & risks. Status Active ST Patient: Active Contact Information [facility] Speech Therapy:: Gissell Ervin M.A. [facility]-[employer] Speech-Language Pathologist [facility] [address] [place] [address] [email or web address] [phone]
== END | disposition home or self-care (01) ==
PROVIDERS: PCP Family Medicine; Referring Provider Family Medicine; Visit Provider Family Medicine
DX: R13.19 Other dysphagia (principal)
CPT/HCPCS: 74230; 92611

== ENCOUNTER 2023-03-08 10:56 | Outpatient (RCR) | payer MEDICARE, SELFPAY ==
--- NOTE | 2023-03-08 11:19 | ST ---
[facility] Speech Pathology [address] [place] [address] Modified Barium Swallow Study MR#: [id number] Acct: [id number] Name: CRISSY SALGADO Rep #: [id number] : 1955 From: Gissell Ervin M.A., [facility])-ORDNANCE TECHNICIAN Modified Barium Swallow Patient Information Study Date: 03/02/23 Study Time: 13:00 Direct Billable Minutes: 79 Total Minutes procedure & reportin Diagnosis: Dysphagia (R13.10) Referring Physician: Yrn Macedo Reason for Referral: Objectively assess swallow function, risk for aspiration, and determine recommendations for least restrictive diet textures and compensatory strategies to improve safety of swallow. Medical History: PMH: Panic disorder, Depression, Anxiety. The patient is a 67-year-old male who reports increased swallowing difficulty in the past year. He reports that dry or adhesive textures feel like they take extra effort to swallow. He denies sensation of retention with food or drink with the exception of taking medication. He reported that taking medications with applesauce helps. He denies coughing or choking with oral intake. He denies odynophagia. His PCP referred him for MBSS. Current Diet Ordered: Regular textures / Thin liquids Dentition: WNL Mental Status: WNL Respiratory Status: Oxygenating on Room Air Penetration-Aspiration Scale Penetration-Aspiration Scale: OBJECTIVE ASSESSMENT OF SWALLOW FUNCTION (QUANTITATIVE ? PER TRIAL): PENETRATION / ASPIRATION SCALE (POOLE): 1 = does not enter airway 2 = enters airway/above vocal folds/ejected 3 = enters airway/above vocal folds/not ejected 4 = enters airway/contacts vocal folds/ejected 5 = enters airway/contacts vocal folds/not ejected 6 = enters airway/below vocal folds/ejected 7 = enters airway/below vocal folds/not ejected despite effort 8 = enters airway/below vocal folds/no effort VIDEOFLOROSCOPIC SCALE SCORE (POOLE): Grade I = aspiration of material that has penetrated into the laryngeal vestibule, intact cough reflex Grade II = aspiration < 10 % of the bolus, intact cough reflex Grade III = aspiration of < 10 % of the bolus, reduced cough reflex or aspiration of > 10 % of the bolus, intact cough reflex Grade IV = aspiration of > 10 % of the bolus, reduced cough reflex Penetration-Aspiration Scale Score Thin Liquid via teaspoon: Result: 2= enter airway/above vocal folds/ejected Thin Liquid via teaspoon Trial 2: Result: 1= does not enter airway Thin liquids by small single cup sip: Result: 1= does not enter airway [place]/mildly thick by small single cup sip: Result: 1= does not enter airway Pudding via teaspoon with esophageal screen: Result: 1= does not enter airway ? Cookie: Result: 1= does not enter airway Comment: Cued effortful swallow to clear pharyngeal residue - little to no improvement. Thin liquids by small single straw sip: Result: 3= enters airways/above vocal folds/not ejected Thin liquids by sequential straw sips: Result: 2= enter airway/above vocal folds/ejected ? Cookie with chin tuck: Result: 1= does not enter airway Barium tablet with thin liquid with esophageal screen: Result: 1= does not enter airway Oral Phase Labial Seal: Escape beyond mid-chin (ORDNANCE TECHNICIAN provided sip by tsp, otherwise good labial seal) Tongue Control During Bolus Hold: Cohesive bolus between tongue to palatal seal Bolus Preparation/Mastication: Timely and efficient chewing and mashing Bolus Transport/Lingual Motion: Delayed initiation of tongue motion Oral Residue: Residue collection on oral structures Pharyngeal Phase Initiation of Pharyngeal Swallow: Bolus head at posterior laryngeal surgace of epiglottis Soft Palate Elevation: No bolus between soft palate and pharyngeal wall Laryngeal Elevation: Partial superior movement thyroid cart/partial apprx aryt-epig petiole Anterior Hyoid Excursion: Partial anterior movement Epiglottic Movement: Partial inversion Laryngeal Vestibule Closure at Height of Swallow: Incomplete; narrow column of air/contrast in laryngeal vestibule Pharyngeal Stripping Wave: Present - diminished Pharyngoesophageal Segment Opening: Minimal distension and minimal duration; marked obstruction of flow Tongue Base Retraction: Wide column of contrast between tongue base & post. pharyngeal wall Pharyngeal Residue: Majority of contrast within or on pharyngeal structures Esophageal Phase Esophageal Clearance: Esophageal retention Treatment Strategies Effects of treatment strategies attemped:: Chin tuck = not effective in clearing pharyngeal residues. Effortful swallow = not effective in clearing pharyngeal residues. Liquid wash = effective in clearing pharyngeal residues. Double swallow (patient completes independently) = somewhat effective in clearing pharyngeal residues Diagnosis/Impression Diagnosis: Mild-Moderate oropharyngeal phase dysphagia (R13.12) Impression: The oral phase is primarily marked by... -Mildly delayed tongue motion for A-P transport -Mild oral residue after the swallow, which mostly cleared with independent initiation of multiple swallows as needed. The pharyngeal phase is primarily marked by... -Mildly decreased airway closure during the swallow due to decreased anterior hyoid excursion, epiglottic inversion, and laryngeal elevation. -Moderate pharyngeal residues due to decreased tongue base retraction, UES opening/duration, and pharyngeal stripping wave. -Laryngeal penetration of thin liquids via tsp and straw. Thin liquids via single straw sip did not fully eject from the laryngeal vestibule after the swallow with trace remaining. No aspiration observed during the study. Recommendations Diet: Regular Textures and Thin Liquids Comment: Add extra sauce/gravy to dry textures Compensatory Strategies: Small Bites, Small Sips, Slow Rate, Alternate bites/solids and sips/liquids (1-2 bites: 1 sip), Sitting upright and Remain sitting upright for 30 minutes after PO intake Recommend Repeat Modified Barium Swallow: TBD Need for Skilled Speech Therapy Services: Yes Comment: Will recommend the patient for outpatient dysphagia therapy to address deficits in oropharyngeal swallow function. Will recommend the patient for oropharyngeal strengthening to improve tongue base retraction, laryngeal elevation/hyoid excursion, pharyngeal contraction, and duration of UES opening (Liliam, Johny, CTAR, Effortful, Shaker). The patient would benefit from thorough education regarding diet recommendations and recommended compensatory strategies. Recommended Referrals: GI Consult (retention of contrast in upper-mid esophagus at the end of the study) Education Completed: 1. Described result of evaluation., 2. Pt understands evaluation & agrees with goals and treatment plan. and 7. Pt requires further education on strategies & risks. Status Active ST Patient: Active Contact Information [facility] Speech Therapy:: Gissell Ervin M.A. [employer]NANCE TECHNICIAN Speech-Language Pathologist [facility] [address] [place] [address] [email or web address] [phone] 03/02/23 925 <Electronically signed by Gissell Ervin M.A. CCC-ORDNANCE TECHNICIAN> Date/Time Gissell Ervin M.A., CCC-ORDNANCE TECHNICIAN
--- NOTE | 2023-03-08 11:55 | HP.SP.EV_ITS ---
History History Date of Eval: 03/08/23 Attending Doctor: Referring Doctor: Reason for Referral: Dysphagia Medical Diagnosis (from RX): Mild-Moderate oropharyngeal phase dysphagia (R13.12) Date of Onset of Diagnosis: 1 year ago Previous speech therapy: No Medications related to this diagnosis: Multivitamin, Flomax, and turmeric. Patient unable to recall names of others. Smoking Status: Never smoker Hx Smoking: No Hx Tobacco Use: No Pain Is pain an issue with your current prescribed condition?: No Personal Preferred language: Kitt[place] Patient Allergies Allergies Allergies: Allergies No Known Allergies Allergy (Verified 05/04/22 10:34) Subjective Dysphagia Symptoms Reported Symptoms/Problems with: Difficulty Swallowing Pills and Xerostomia Current Diet Solids Current Diet: Regular Current Diet Liquids Current Liquids: Thin Objective Dysphagia Thin Liquids Administred via: Cup Oral Transit: WNL Gagging: No Pharyngeal phase: elevation incomplete Regular Oral Preparation: WNL Oral Transit: WNL Bolus clearance: fully cleared Gagging: No Cough: none observed/unable to assess Pharyngeal phase: elevation incomplete and laryngeal elevation mildly restricted slow initiation Patient Report: No difficulty as swallow difficulties are intermittent per the patient. See modified barium swallow study results. Swallowing Impairment Contributing Factors to Swallowing Impairment: Impaired Oral-Pharyngeal Transport and Reduced Laryngeal Excursion Recommendations Modified Barium Swallow/Cookie Swallow Recommended: No Diet Texture Recommendations Solids: Regular (Level 7) Liquids: Thin (Level 0) Safety Saftey Precautions/Swallowing Recommendations (Check all that Apply): Upright Position at Least 30 Minutes After Meals, Small Sips & Bites when Eating, No Straw, Alternate Liquids & Solids and Other (Specify Below) Other: Take pills in applesauce/pudding, add extra moisture to dry foods. Results Swallowing Within Normal Limits: No Swallowing Diagnosis: Oropharyngeal Phase Dysphagia (R13.12) Severity: Moderate Modified Barium Results Hx If Applicable Enter into a NOTE MBS Report Entered: Yes MBS Results (from prior exam): 03/08/23 11:19 Speech Therapy by Maximino Mortensen [facility] Speech Pathology [id number] [place] [address] Modified Barium Swallow Study MR#: [id number] Acct: [id number] Name: CRISSY SALGADO Rep #: [id number] : 1955 From: Gissell Ervin M.A. [facility] Modified Barium Swallow Patient Information Study Date: 03/02/23 Study Time: 13:00 Direct Billable Minutes: 79 Total Minutes procedure & reportin Diagnosis: Dysphagia (R13.10) Referring Physician: Yrn Macedo Reason for Referral: Objectively assess swallow function, risk for aspiration, and determine recommendations for least restrictive diet textures and compensatory strategies to improve safety of swallow. Medical History: PMH: Panic disorder, Depression, Anxiety. The patient is a 67-year-old male who reports increased swallowing difficulty in the past year. He reports that dry or adhesive textures feel like they take extra effort to swallow. He denies sensation of retention with food or drink with the exception of taking medication. He reported that taking medications with applesauce helps. He denies coughing or choking with oral intake. He denies odynophagia. His PCP referred him for MBSS. Current Diet Ordered: Regular textures / Thin liquids Dentition: WNL Mental Status: WNL Respiratory Status: Oxygenating on Room Air Penetration-Aspiration Scale Penetration-Aspiration Scale: OBJECTIVE ASSESSMENT OF SWALLOW FUNCTION (QUANTITATIVE ? PER TRIAL): PENETRATION / ASPIRATION SCALE (POOLE): 1 = does not enter airway 2 = enters airway/above vocal folds/ejected 3 = enters airway/above vocal folds/not ejected 4 = enters airway/contacts vocal folds/ejected 5 = enters airway/contacts vocal folds/not ejected 6 = enters airway/below vocal folds/ejected 7 = enters airway/below vocal folds/not ejected despite effort 8 = enters airway/below vocal folds/no effort VIDEOFLOROSCOPIC SCALE SCORE (POOLE): Grade I = aspiration of material that has penetrated into the laryngeal vestibule, intact cough reflex Grade II = aspiration < 10 % of the bolus, intact cough reflex Grade III = aspiration of < 10 % of the bolus, reduced cough reflex or aspiration of > 10 % of the bolus, intact cough reflex Grade IV = aspiration of > 10 % of the bolus, reduced cough reflex Penetration-Aspiration Scale Score Thin Liquid via teaspoon: Result: 2= enter airway/above vocal folds/ejected Thin Liquid via teaspoon Trial 2: Result: 1= does not enter airway Thin liquids by small single cup sip: Result: 1= does not enter airway [place]/mildly thick by small single cup sip: Result: 1= does not enter airway Pudding via teaspoon with esophageal screen: Result: 1= does not enter airway ? Cookie: Result: 1= does not enter airway Comment: Cued effortful swallow to clear pharyngeal residue - little to no improvement. Thin liquids by small single straw sip: Result: 3= enters airways/above vocal folds/not ejected Thin liquids by sequential straw sips: Result: 2= enter airway/above vocal folds/ejected ? Cookie with chin tuck: Result: 1= does not enter airway Barium tablet with thin liquid with esophageal screen: Result: 1= does not enter airway Oral Phase Labial Seal: Escape beyond mid-chin ([employer] provided sip by tsp, otherwise good labial seal) Tongue Control During Bolus Hold: Cohesive bolus between tongue to palatal seal Bolus Preparation/Mastication: Timely and efficient chewing and mashing Bolus Transport/Lingual Motion: Delayed initiation of tongue motion Oral Residue: Residue collection on oral structures Pharyngeal Phase Initiation of Pharyngeal Swallow: Bolus head at posterior laryngeal surgace of epiglottis Soft Palate Elevation: No bolus between soft palate and pharyngeal wall Laryngeal Elevation: Partial superior movement thyroid cart/partial apprx aryt- epig petiole Anterior Hyoid Excursion: Partial anterior movement Epiglottic Movement: Partial inversion Laryngeal Vestibule Closure at Height of Swallow: Incomplete; narrow column of air/contrast in laryngeal vestibule Pharyngeal Stripping Wave: Present - diminished Pharyngoesophageal Segment Opening: Minimal distension and minimal duration; marked obstruction of flow Tongue Base Retraction: Wide column of contrast between tongue base & post. pharyngeal wall Pharyngeal Residue: Majority of contrast within or on pharyngeal structures Esophageal Phase Esophageal Clearance: Esophageal retention Treatment Strategies Effects of treatment strategies attemped:: Chin tuck = not effective in clearing pharyngeal residues. Effortful swallow = not effective in clearing pharyngeal residues. Liquid wash = effective in clearing pharyngeal residues. Double swallow (patient completes independently) = somewhat effective in mirta ring pharyngeal residues Diagnosis/Impression Diagnosis: Mild-Moderate oropharyngeal phase dysphagia (R13.12) Impression: The oral phase is primarily marked by... -Mildly delayed tongue motion for A-P transport -Mild oral residue after the swallow, which mostly cleared with independent initiation of multiple swallows as needed. The pharyngeal phase is primarily marked by... -Mildly decreased airway closure during the swallow due to decreased anterior hyoid excursion, epiglottic inversion, and laryngeal elevation. -Moderate pharyngeal residues due to decreased tongue base retraction, UES opening/duration, and pharyngeal stripping wave. -Laryngeal penetration of thin liquids via tsp and straw. Thin liquids via single straw sip did not fully eject from the laryngeal vestibule after the swallow with trace remaining. No aspiration observed during the study. Recommendations Diet: Regular Textures and Thin Liquids Comment: Add extra sauce/gravy to dry textures Compensatory Strategies: Small Bites, Small Sips, Slow Rate, Alternate bites/solids and sips/liquids (1-2 bites: 1 sip), Sitting upright and Remain sitting upright for 30 minutes after PO intake Recommend Repeat Modified Barium Swallow: TBD Need for Skilled Speech Therapy Services: Yes Comment: Will recommend the patient for outpatient dysphagia therapy to address deficits in oropharyngeal swallow function. Will recommend the patient for oropharyngeal strengthening to improve tongue base retraction, laryngeal elevation/hyoid excursion, pharyngeal contraction, and duration of UES opening (Liliam, Johny, CTAR, Effortful, Shaker). The patient would benefit from thorough education regarding diet recommendations and recommended compensatory strategies. Recommended Referrals: GI Consult (retention of contrast in upper-mid esophagus at the end of the study) Education Completed: 1. Described result of evaluation., 2. Pt understands evaluation & agrees with goals and treatment plan. and 7. Pt requires further education on strategies & risks. Status Active ST Patient: Active Contact Information [facility] Speech Therapy:: Gissell Ervin M.A. [facility] Speech-Language Pathologist [address] [address] [email or web address] [phone] 03/02/23 1404 <Electronically signed by Gissell Ervin M.A., CCC[facility]> Date/Time Gissell Ervin M.A. [facility] Initialized on 03/08/23 11:19 - END OF NOTE Swallowing Performance Scale Swallowing Performance Scale Swallowing Performance Scale Result: 3 Mild Reference: Neuro-QoL instrument Radiation Oncology Patient Plan Plan Plan: Patient was provided with swallow exercises and requested to not attend therapy weekly. [facility] [employer] is in agreement with the patient for this plan. He was given the Liliam, Johny, Effortful swallow along with CTAR exercises. He demonstrated the ability to independently complete these. He is on a regular diet with thin liquids. Recommendations MBS: No Treatment Warranted: No Education Patient has Indicated that the Following Identified Educational Needs: None The Patient has indicated that they have no educational or learning abilities that may effect their care.: Yes Patient Instruction Patient Education: Diagnosis, Diet Level and Home Exercise Program Person Taught: Patient Response to teaching: Return demonstration and Verbalize understanding
== END 2023-03-08 23:59 | disposition home or self-care (01) ==
LOC: SP 10:56
PROVIDERS: PCP Family Medicine; Referring Provider Family Medicine; Visit Provider Family Medicine
DX: R13.19 Other dysphagia (principal)
CPT/HCPCS: 92610

== ENCOUNTER → 2023-07-13 | Outpatient (CLI) | payer MEDICARE, SELFPAY ==
[2023-07-13 17:14] LABS: PSA,Total - Annual Screen 1.69 ng/mL (0.00-4.00)
--- OUTSIDE RECORDS SUMMARY | 2023-07-13 19:56 | XMS RPT_ITS | CCD ---
Author Name Unknown Address [facility] [address] [place] [address] Organization [facility] Care Team Providers Care Bracelet Maker Novelty Name Role Phone Unavailable Primary Care Provider Unavailabl e Medications Current Medications Medication Drug Class(es) Dates Sig (Normalized) Sig (Original) amoxicillin 875 mg / clavulanate 125 mg oral tablet (3 sources) Penicillin-class Antibacterial Start: 05-09-2022 End: 05-12-2022 take 1 tablet by mouth twice daily amoxicillin-clav ulanate (AUGMENTIN) 875-125 mg per tablet Take 1 (one) tablet by mouth 2 (two) times a day for 3 days . 6 tablet 0 05/09/2022 05/12/2022 Active 24 hr oxybutynin chloride 5 mg extended release oral tablet (3 sources) Cholinergic Muscarinic Antagonist Start: 05-09-2022 End: 06-08-2022 take 1 tablet by mouth once daily as needed for muscle spasms oxybutynin (DITROPAN-XL) 5 MG 24 hr tablet Take 1 (one) tablet (5 mg total) by mouth daily as needed (bladder spasms) . 30 tablet 0 05/09/2022 06/08/2022 Active Completed/Discontinued Medications Medication Drug Class(es) Dates Sig (Normalized) Sig (Original) acetaminophen 325 mg / oxyCODONE hydrochloride 5 mg oral tablet (1 source) Opioid Agonist Start: 05-09-2022 End: 05-09-2022 take 1 tablet by mouth every twenty-four hours as needed 1 tablet, Oral, Once as needed, Pain, Starting on 05/09/22 at 1647, For 1 dose, PACU (only) While in PACU when tolerating orals. Use oral route first, if tolerated. 1 ml fentaNYL 0.05 mg/ml injection (1 source) Opioid Agonist Start: 05-09-2022 End: 05-09-2022 25 mcg, Intravenous, Every 5 min PRN, Pain, Starting on 05/09/22 at 1647, For 4 doses, PACU (only) [] Do not give more than 100 mcg while in PACU. 1 ml hydrALAZINE hydrochloride 20 mg/ml injection (1 source) Arteriolar Vasodilator Start: 05-09-2022 End: 05-09-2022 5 mg, Intravenous, Every 15 min PRN, SBP greater than 160 or DBP greater than 90, Starting on 05/09/22 at 1647, For 4 doses, PACU (only) [] Do not give more than 20 mg total. [] Hold for HR greater than 100. [] Administer if labetalol or metoprolol ineffective at maximum dose or not ordered. 0.5 ml HYDROmorphone hydrochloride 1 mg/ml prefilled syringe (1 source) Opioid Agonist Start: 05-09-2022 End: 05-09-2022 0.5 mg, Intravenous, Every 10 min PRN, Pain, Starting on 05/09/22 at 1647, For 6 doses, PACU (only) Give if fentanyl not effective or not ordered. Do not give more than 3 mg total. labetalol hydrochloride 5 mg/ml injectable solution (1 source) beta-Adrenergic Blanca Start: 05-09-2022 End: 05-09-2022 5 mg, Intravenous, Every 5 min PRN, SBP greater than 160 or DBP greater than 90, Starting on 05/09/22 at 1647, For 4 doses, PACU (only) Do not give more than 20 mg total. Hold for HR less than 50. naloxone (NARCAN) injection 0.1 mg (1 source) Start: 05-09-2022 End: 05-09-2022 naloxone (NARCAN) injection 0.1 mg 2 ml ondansetron 2 mg/ml injection (1 source) Serotonin-3 Receptor Antagonist Start: 05-09-2022 End: 05-09-2022 4 mg, Intravenous, Every 15 min PRN, nausea, vomiting, Starting on 05/09/22 at 1647, For 2 doses, PACU (only) Do not give more than 2 doses. Administer first as needed for nausea/vomiting, or as directed by anesthesia 1000 ml sodium chloride 9 mg/ml injection (2 sources) Start: 05-09-2022 End: 05-09-2022 sodium chloride 0.9% (NS) Problems Problem Classification Problem Date Documented Da te Episodic/Chronic Abdominal pain (1 source) Flank pain; Translations: [Unspecified abdominal pain] Episodic Calculus of urinary tract (3 sources) Kidney stone; Translations: [Calculus of kidney] Onset: 05-09-2022 Episodic Other liver diseases (1 source) Increased creatine kinase level; Translations: [Abnormal levels of other serum enzymes] Episodic Results Test Name Value Interpretation Reference Range Facil ity Vital Signs Date Time Vital Sign Value Performing Clinician Faci lity 05-09-2022 17:45-0500 Body temperature 97.59 [degF] Brad Calderón MD Work Phone: [facility] 05-09-2022 17:45-0500 Diastolic blood pressure 83 mm[Hg] Brad Calderón MD Work Phone: [facility] 05-09-2022 17:45-0500 Heart rate 98 /min Brad Calderón MD Work Phone: [facility] 05-09-2022 17:45-0500 Respiratory rate 20 /min Brad Calderón MD Work Phone: [facility] 05-09-2022 17:45-0500 SaO2% (BldA) [Mass fraction] 95 % Brad Calderón MD Work Phone: [facility] 05-09-2022 17:45-0500 Systolic blood pressure 153 mm[Hg] Brad Claderón MD Work Phone: [facility] 05-09-2022 10:23-0500 Body height 175.3 cm Brad Calderón MD Work Phone: [facility] 05-09-2022 10:23-0500 Body mass index (BMI) [Ratio] 25.68 kg/m2 Brad Calderón MD Work Phone: [facility] 05-09-2022 10:23-0500 Body weight 78.88 kg Brad Calderón MD Work Phone: [facility] Encounters Encounter Date Encounter Type Care Provider Facility Start: 05-09-2022 End: 05-09-2022 Emergency department patient visit Brad Calderón MD Work Phone: [facility] Periop Procedures Date Procedure Procedure Detail Performing Clinician Start: 05-09-2022 Urnls dip stick/tabl et reagent auto microscopy Brad Calderón MD Work Phone: Start: 05-09-2022 Basic metabolic pane l calcium total Brad Calderón MD Work Phone: Start: 05-09-2022 LOVE TOP Brad Calderón MD Work Phone: Start: 05-09-2022 LAVENDER TOP Brad Calderón MD Work Phone: Start: 05-09-2022 LIGHT BLUE TOP Brad Calderón MD Work Phone: Start: 05-09-2022 LIGHT GREEN TOP Brad Calderón MD Work Phone: Start: 05-09-2022 MINT GREEN TOP Brad Calderón MD Work Phone: Start: 05-09-2022 PINK TOP Brad Calderón MD Work Phone: Start: 05-09-2022 RAINBOW DRAW Brad Calderón MD Work Phone: Start: 05-09-2022 Computerized tomogra phy, limited studies External Transcribed Plan of Treatment Date Care Activity Detail Author Start: 05-09-2022 End: 05-09-2022 CYSTOSCOPY WITH RETROGRADE STONE MANIPULATION STENT INSERTION WITH LASER CYSTOSCOPY WITH RETROGRADE STONE MANIPULATION STENT INSERTION WITH LASER KIDNEY STONE 05/09/2022 3:23 PM EST [facility] End: 05-09-2022 12 lead ECG ECG 12 Lead ECG Routine Once for 1 Occurrences starting 05/09/2022 until 05/09/2022 [facility] Work Phone: Social History Date Type Detail Facility Start: 05-09-2022 Tobacco smoking status NHIS Never sm oked tobacco [facility] Start: 05-09-2022 Tobacco use and exposure Smokeless t obacco non-user [facility] Start: 05-09-2022 Alcohol intake Lifetime non-d avel (finding) [facility] Start: 1955 Sex Assigned At Not on file [facility] Start: 04-29-2022 End: 05-09-2022 Exposure to SARS-CoV-2 (event) Not sure [facility] Medical Equipment Procedure Code Equipment Code Equipment Origin al Text Equipment Identifier Dates Stent 6fr X 26cm Ureter W/O Wire - [id number] , [id number] Start: 05-09-2022 Clinical Notes 05-09-2022 Arslan Parada MD - 05/09/2022 5:04 PM ESTDischarge Instr - AVS First PageDischarge Instr - Other OrdersAttachmentsOp Note - Arslan Parada MD - 05/09/2022 3:54 PM EST Note Date & Type Note Facility 05-09-2022 Hospital course Narrative DISCHARGE SUMMARY Patient: Jamar Richter Date of : 1955 Site: [facility] Family Provider: No primary care provider on file. Admit Date: 05/09/2022 Discharge Date/Time: 05/09/22 Disposition: stable Clinical Summary Hospital Course: Jamar Richter is a 66 y.o. male patient of No primary care provider on file. with a history of a kidney stone. He underwent an uneventful cystoscopy, left ureteroscopy, laser lithotripsy, stone extraction, placement of left ureteral stent. He was discharged in stable condition. Discharge Diagnoses: Kidney stone Surgeries: 05/09/22 CYSTOSCOPY, LEFT URETEROSCOPY, LASER LITHOTRIPSY, STONE EXTRACTION, LEFT STENT Consults: Procedures Consult Urology Hospitalize Patient To : Allergies: Patient has no known allergies. Discharge Diet: Condition: Good Discharge Medications: Discharge Medications New Medications Details amoxicillin-clavulanate 875-125 mg per tablet Commonly known as: AUGMENTIN Take 1 (one) tablet by mouth 2 (two) times a day for 3 days . Quantity: 6 tablet oxybutynin 5 MG 24 hr tablet Commonly known as: DITROPAN-XL Take 1 (one) tablet (5 mg total) by mouth daily as needed (bladder spasms) . Quantity: 30 tablet tamsulosin 0.4 mg capsule Commonly known as: FLOMAX Take 1 (one) capsule (0.4 mg total) by mouth after evening meal . Quantity: 30 capsule Physician(s) Family Provider: No primary care provider on file., Phone: None Address: No primary physician on file. Follow Up: Arslan Parada MD [address] [facility] [address] [facility] [address] Follow up in 1 week(s) Please call the office to confirm your 1 week stent removal appointment. You may also follow-up with your urologist to schedule a stent removal appointment to be removed at least 7 days after the procedure. Additional Information: none Patient instructions, including activity, were given to the patient/family at discharge. Please see the After Visit Summary in the electronic medical record for details. Time spent on discharge: < 30 minutes Completed by: Arslan Parada MD on 05/09/22, 5:04 PM documented in this encounter [facility] 05-09-2022 Hospital Discharge instructions Arslan Parada MD - 05/09/2022 5:04 PM EST You are being discharged with a ureteral stent in place. You may alternate between Tylenol or Motrin every 4-6 for mild to moderate pain as needed. Do not exceed more than 3000mg of Tylenol of 24 hours. You may take Flomax 0.4mg at bedtime for stent discomfort and Ditropan 5mg as needed for bladder spasms. Ditropan will cause constipation and dry eyes/mouth. Please drink plenty of water and take over the counter stool softeners. Your urine will be blood tinged due to the stent placement. Please drink plenty of fluids. You will be discharged with a 3-day antibiotic course of Augmentin. Please finish the course. You had an abnormally elevated creatinine on your blood work. Please follow-up in 1 week with your urologist or family physician for repeat blood work. Vicki Lowe RN - 05/09/2022 5:42 PM EST After Surgery and Anesthesia You must have an adult drive you home from the hospital and stay with you for [address], operate machinery, cook or return to work for 24 hours or a as directed by your surgeon Do not make important personal or legal decisions or sign legal forms for 24 hours General anesthesia - you may have a dry, raspy or scratchy throat. Throat lozenges or gargles may give relief Resume home medications Diet & Bowel Activity Begin with clear liquids and light foods, such as jello, lemon mi'kmaq soda, betty carlos eduardo. Progress to your normal diet if you are not nauseated No alcoholic beverages for 24 hours after surgery or while you are taking prescription pain medicine. If you have diabetes, check with your family doctor about your diet and medicine To help avoid constipation, eat a high fiber diet and drink 6-8 glasses of water each day. Stool softeners or a mild laxative may be needed if you do not have a bowel movement within 3 days of your surgery. Call your doctor for more instructions or pharmacist Activity Limit your activity for the first 24 hours. You may feel dizzy and tired from anesthesia. Be careful as you walk or climb stairs. If you have an incision, avoid activities that stress your incision Do not drive, return to work, play sports or do heavy activities until permitted by your doctor Call your surgeon right away if you have: Heavy or persistent bleeding Persistent nausea or vomiting lasting more than 6 hours Edges of incision Signs of infections: a fever over 101 degrees, increased swelling, redness, odor or drainage at the incision site Numbness, tingling, or color change of a leg or arm Trouble urinating within 8 hours or a feeling of fullness and unable to urinate Sudden, severe pain or pain not relieved by medication Questions or Concerns If you have chest pain, shortness of breath, difficulty breathing or swallowing call 911 Medications All prescriptions can be filled at any Pharmacy If you take a blood thinner or aspirin and were told to stop before your surgery ask your doctor specifically when you are to start them again After Surgery Frequency to urinate and burning on urination are common complaints. Use your medicines to help with this, if you have a prescription for spasms take as ordered. Blood in your urine is a common for a few days after surgery. Call your doctor ifyou have constant bright blood in your urine or if you are passing clots and suddenly can't urinate Call your doctor if you have an intense urge to urinate and pain in your lower abdomen. Diet Start out slowly drinking fluids until you know you can urinate (pee). Then start drinking 6-8, 8 oz glasses of fluid (Water and other fluids except alcohol) to help restock the fluids you have missed over the day. You may not feel like you want to eat. We are more concerned with how much you drink. If you eat,startwith small quantities of something you think will taste good and is easy to digest (Crackers, pretzels, soup, broth). DO NOT try foods that are spicy or greasy today. Nausea and Vomiting can occur up to 24 hours after anesthetic. Call Your Doctor If You: Are unable to urinate within 8 hours of release from the hospital. Have constant bright red bloody urine. Pass Clots during urination. Have pain in lower abdomen and feeling like your bladder is full and can't urinate. Stent A stent is a hollow flexible tube inserted during surgery to assure that there is a good passage of urine. It is left in place until the swelling has gone down and the doctor feels you can pass urine on your own. The following attachments cannot be sent through Care Everywhere.Laser Lithotripsy: Post-op ([place]er)documented in this encounter [facility] 05-09-2022 Note Formatting of this n ote might be different from the original. OPERATIVE REPORT Date of Service: 05/09/2022 Clinician: Arslan Parada MD OR Staff: Global Program Manager: Nevin Yates RN Iridologist: Amie Oviedo, TECHNOLOGIST Scrub Person: [facility] Anesthesia Staff: Anesthesiologist: Matt De Jesus MD Surgeon(s):Surgeon(s) and Role: * Arslan Parada MD - Primary Patient Name: Jamar Richter MR #: [id number] PREOPERATIVE DIAGNOSIS Left ureteral stone. POSTOPERATIVE DIAGNOSIS Left ureteral stone. PROCEDURES PERFORMED 1. Cystoscopy. 2. Left retrograde pyelogram 3. Left ureteroscopy with holmium laser lithotripsy and stone extraction. 4. Placement of Left JJ ureteral stent ANESTHESIA General anesthesia. IMPLANTS Left 6x26 double-J ureteral stent. COMPLICATIONS None. DISPOSITION Stable, to recovery room. EBL Minimal SPECIMEN Stone for analysis INDICATIONS FOR THE PROCEDURE Jamar Richter is a 66 y.o. y/o male with a left 6 mm distal ureteral calculus. Risks, benefits, and alternatives were discussed with the patient; they elected to proceed with ureteroscopic management. The risks of the procedure included bleeding, infection, injury to bladder, kidney, ureter, and need for further procedures were discussed with the patient preoperatively. They voiced understanding of these risks and gave their written consent to proceed. DESCRIPTION OF THE PROCEDURE On 05/09/2022, after receiving a dose of intravenous antibiotics, the patient was taken to the operating room and placed supine on the operating room table. After the induction of general anesthesia, He was repositioned in the dorsal lithotomy position and the external genitalia were prepped and draped in the standard sterile surgical fashion. Tavera cystoscopy was performed with a 22 Tongan rigid cystourethroscope which revealed the bladder as free of any gross tumors, masses, or lesions. The left ureteral orifice was intubated with a 0.035 guide wire which was passed into the renal pelvis under fluoroscopic guidance. A dual-lumen ureteral catheter was passed over this wire and a retrograde pyelogram was performed; please see separate dictation for details. At this point I proceeded with rigid ureteroscopy where I encountered the stone in its expected position. I was able to fragment the stone with the holmium laser fiber and I was able to grasp and remove all visible stone fragments. An Amplatz Super Stiff wire was then advanced into the kidney. Then under live fluoroscopy, a flexible ureteroscope was advanced into the kidney. A tavera pyeloscopy was performed. There were Jeremy's plaques in the upper pole calyx. This was subsequently lasered off with a 200 m laser fiber. The fragments were removed with a 0 tip nitinol basket. The scope was withdrawn under direct vision, taking care to visualize the proximal, mid, distal ureter which was free of additional stone disease. A double-J ureteral stent was passed over the safety wire in the standard fashion, where an excellent curl was in the kidney as well as in the bladder when the wire was removed. Of note, the string was not left on the stent. The bladder was drained. The patient was returned to the supine position, awoken, extubated, and transferred to the recovery room, having tolerated the procedure well, without complication. PROCEDURE Retrograde pyelogram. TECHNIQUE The left ureteral orifice was intubated with a dual-lumen ureteral catheter, through which 7 mL of Visipaque was instilled, performing retrograde pyelography. INTERPRETATION Contrast fills a normal ureter to the level of a large filling defect in the distal ureter. Some contrast does pass proximal to this defect, opacifying a minimally dilated proximal ureter and renal pelvis with minimally blunted calices. IMPRESSION Mild hydroureteronephrosis to the level of the distal ureteral filling defect consistent with the patient's known ureteral calculus. Surgeon(s) and Role: * Arslan Parada MD - Primary [facility] 05-09-2022 Miscellaneous Notes OPERATIVE REPORT Date of Service: 05/09/2022 Clinician: Arslan Parada MD OR Staff: Global Program Manager: Nevin Yates RN Iridologist: Amie Oviedo, TECHNOLOGIST Scrub Person: [facility] Anesthesia Staff: Anesthesiologist: Matt De Jesus MD Surgeon(s):Surgeon(s) and Role: * Arslan Parada MD - Primary Patient Name: Jamar Richter MR #: [id number] PREOPERATIVE DIAGNOSIS Left ureteral stone. POSTOPERATIVE DIAGNOSIS Left ureteral stone. PROCEDURES PERFORMED 1. Cystoscopy. 2. Left retrograde pyelogram 3. Left ureteroscopy with holmium laser lithotripsy and stone extraction. 4. Placement of Left JJ ureteral stent ANESTHESIA General anesthesia. IMPLANTS Left 6x26 double-J ureteral stent. COMPLICATIONS None. DISPOSITION Stable, to recovery room. EBL Minimal SPECIMEN Stone for analysis INDICATIONS FOR THE PROCEDURE Jamar Richter is a 66 y.o. y/o male with a left 6 mm distal ureteral calculus. Risks, benefits, and alternatives were discussed with the patient; they elected to proceed with ureteroscopic management. The risks of the procedure included bleeding, infection, injury to bladder, kidney, ureter, and need for further procedures were discussed with the patient preoperatively. They voiced understanding of these risks and gave their written consent to proceed. DESCRIPTION OF THE PROCEDURE On 05/09/2022, after receiving a dose of intravenous antibiotics, the patient was taken to the operating room and placed supine on the operating room table. After the induction of general anesthesia, He was repositioned in the dorsal lithotomy position and the external genitalia were prepped and draped in the standard sterile surgical fashion. Tavera cystoscopy was performed with a 22 Tongan rigid cystourethroscope which revealed the bladder as free of any gross tumors, masses, or lesions. The left ureteral orifice was intubated with a 0.035 guide wire which was passed into the renal pelvis under fluoroscopic guidance. A dual-lumen ureteral catheter was passed over this wire and a retrograde pyelogram was performed; please see separate dictation for details. At this point I proceeded with rigid ureteroscopy where I encountered the stone in its expected position. I was able to fragment the stone with the holmium laser fiber and I was able to grasp and remove all visible stone fragments. An Amplatz Super Stiff wire was then advanced into the kidney. Then under live fluoroscopy, a flexible ureteroscope was advanced into the kidney. A tavera pyeloscopy was performed. There were Jeremy's plaques in the upper pole calyx. This was subsequently lasered off with a 200 m laser fiber. The fragments were removed with a 0 tip nitinol basket. The scope was withdrawn under direct vision, taking care to visualize the proximal, mid, distal ureter which was free of additional stone disease. A double-J ureteral stent was passed over the safety wire in the standard fashion, where an excellent curl was in the kidney as well as in the bladder when the wire was removed. Of note, the string was not left on the stent. The bladder was drained. The patient was returned to the supine position, awoken, extubated, and transferred to the recovery room, having tolerated the procedure well, without complication. PROCEDURE Retrograde pyelogram. TECHNIQUE The left ureteral orifice was intubated with a dual-lumen ureteral catheter, through which 7 mL of Visipaque was instilled, performing retrograde pyelography. INTERPRETATION Contrast fills a normal ureter to the level of a large filling defect in the distal ureter. Some contrast does pass proximal to this defect, opacifying a minimally dilated proximal ureter and renal pelvis with minimally blunted calices. IMPRESSION Mild hydroureteronephrosis to the level of the distal ureteral filling defect consistent with the patient's known ureteral calculus. Surgeon(s) and Role: * Arslan Parada MD - Primary documented in this encounter [facility] 05-09-2022 History and physical note [facility] History and Physical Note 05/09/22 Jamar Richter 1955 [id number] Assessment/Plan: Jamar Richter is a 66 y.o. male with no significant past medical history who presented from urologist's office to [facility] 05/09/2022 with left ureteral stone. Patient was diagnosed with left ureteral stone 05/04/22, and was advised to come to the ER for urological evaluation due to ongoing pain despite pain medication. Left ureteral stone: Presented with intractable left-sided pain. Ongoing since 05/04/[address] scan 05/04/2022 at [facility] bilateral nonobstructive stone and left-sided hydronephrosis with a 6 mm ureteral stone. Pending cystoscopy/ureteroscopy laser lithotripsy and stone extraction . Urology following. Preoperative evaluation: Reynaldo Revised Cardiac Index Risk Factors: zero . At home, patient able to complete > 4 METS as evidenced by ability to climb two flights of stairs without CP or dyspnea. Chronic medical conditions that increase perioperative risk not captured with RCRI include: none. Most recent cardiac testing: EKG pending. After chart review and discussion with patient, qualifies for Low Risk (0-1 RCRI with good functional status). . Further cardiac testing will not reduce patients risk and okay to proceed without further testing. Final decision to take patient to OR left to risk/benefit decision making of surgical team. EVON: Unclear baseline. .75-05/09/2022. Likely due to above. Continued IV fluid hydration. Trended. Code status: Full DVT Prophylaxis: SCDs Admitted with these risk variables:Acute Kidney Injury. Please see assessment and plan for further details. Current living situation: home Expected Disposition: home Estimated discharge date: TBD based on urology's intervention and kidney function. Chief Complaint: Left-sided groin/flank pain History of Present Illness: 66-year-old male with no significant past medical history, presented to the ER from urologist office because of ongoing left-sided flank/groin pain. Patient reported that he has been having pain for the past 1 week, gradually getting worse, located in the left renal area, colicky, intermittent, 10 out of 10 at times. With no aggravating or relieving factors. He was diagnosed with kidney stone 1 week at [facility]. He was discharged with plan of medical expulsive therapy and pain medications. But due to ongoing pain, and came to the ER at [place] for further evaluation. ROS: 10 systems were reviewed and negative, except as noted above. Past Medical, Surgical, Social, Family History: Reviewed Past Medical History: Diagnosis Date Renal disorder Past Surgical History: Procedure Laterality Date ORTHOPEDIC SURGERY Social History Tobacco Use Smoking status: Never Smokeless tobacco: Never Substance and Sexual Activity Alcohol use: Never Drug use: Never History reviewed. No pertinent family history. Home Medications: No current outpatient medications on file as of 05/09/2022. Physical Exam: BP (!) 147/78 Pulse 87 Temp 98.3 F (36.8 C) (Oral) Resp 17 Ht 5' 9 Wt 78.9 kg (173 lb 14.4 oz) SpO2 96% BMI 25.68 kg/m General: NAD Eyes: EOMI ENT: neck supple Cardiovascular: Regular rate. Respiratory: Clear to auscultation Gastrointestinal: Soft, non tender Genitourinary: no suprapubic tenderness, left CVA tenderness Musculoskeletal: No edema Skin: warm, dry Neuro: Alert. No focal neurological deficit Psych: Mood appropriate. Slightly anxious Labs, Imaging, and Studies reviewed: Results from last 7 days Lab Units 05/09/22 1032 WBC K/mcL 7.63 HGB g/dL 12.5* HCT % 36.3* PLT K/mcL 343 Results from last 7 days Lab Units 05/09/22 1032 SODIUM mmol/L 133* POTASSIUM mmol/L 4.4 CHLORIDE mmol/L 96* BICARB mmol/L 24 BUN mg/dL 22 CREATININE mg/dL 1.75* EGFR mL/min/1.73 m2 42* GLUCOSE mg/dL 120* CALCIUM mg/dL 9.0 Results from last 7 days Lab Units 05/09/22 1032 INR 1.2* [facility] 05-09-2022 History and physical note [facility] History and Physical Note 05/09/22 Jamar Richter 1955 [id number] Assessment/Plan: Jamar Richter is a 66 y.o. male with no significant past medical history who presented from urologist's office to [facility] 05/09/2022 with left ureteral stone. Patient was diagnosed with left ureteral stone 05/04/22, and was advised to come to the ER for urological evaluation due to ongoing pain despite pain medication. Left ureteral stone: Presented with intractable left-sided pain. Ongoing since 05/04/[address] scan 05/04/2022 at [facility] bilateral nonobstructive stone and left-sided hydronephrosis with a 6 mm ureteral stone. Pending cystoscopy/ureteroscopy laser lithotripsy and stone extraction . Urology following. Preoperative evaluation: Reynaldo Revised Cardiac Index Risk Factors: zero . At home, patient able to complete > 4 METS as evidenced by ability to climb two flights of stairs without CP or dyspnea. Chronic medical conditions that increase perioperative risk not captured with RCRI include: none. Most recent cardiac testing: EKG pending. After chart review and discussion with patient, qualifies for Low Risk (0-1 RCRI with good functional status). . Further cardiac testing will not reduce patients risk and okay to proceed without further testing. Final decision to take patient to OR left to risk/benefit decision making of surgical team. EVON: Unclear baseline. 1.75-05/09/2022. Likely due to above. Continued IV fluid hydration. Trended. Code status: Full DVT Prophylaxis: SCDs Admitted with these risk variables:Acute Kidney Injury. Please see assessment and plan for further details. Current living situation: home Expected Disposition: home Estimated discharge date: TBD based on urology's intervention and kidney function. Chief Complaint: Left-sided groin/flank pain History of Present Illness: 66-year-old male with no significant past medical history, presented to the ER from urologist office because of ongoing left-sided flank/groin pain. Patient reported that he has been having pain for the past 1 week, gradually getting worse, located in the left renal area, colicky, intermittent, 10 out of 10 at times. With no aggravating or relieving factors. He was diagnosed with kidney stone 1 week at [facility]. He was discharged with plan of medical expulsive therapy and pain medications. But due to ongoing pain, and came to the ER at [place] for further evaluation. ROS: 10 systems were reviewed and negative, except as noted above. Past Medical, Surgical, Social, Family History: Reviewed Past Medical History: Diagnosis Date Renal disorder Past Surgical History: Procedure Laterality Date ORTHOPEDIC SURGERY Social History Tobacco Use Smoking status: Never Smokeless tobacco: Never Substance and Sexual Activity Alcohol use: Never Drug use: Never History reviewed. No pertinent family history. Home Medications: No current outpatient medications on file as of 05/09/2022. Physical Exam: BP (!) 147/78 Pulse 87 Temp 98.3 F (36.8 C) (Oral) Resp 17 Ht 5' 9 Wt 78.9 kg (173 lb 14.4 oz) SpO2 96% BMI 25.68 kg/m General: NAD Eyes: EOMI ENT: neck supple Cardiovascular: Regular rate. Respiratory: Clear to auscultation Gastrointestinal: Soft, non tender Genitourinary: no suprapubic tenderness, left CVA tenderness Musculoskeletal: No edema Skin: warm, dry Neuro: Alert. No focal neurological deficit Psych: Mood appropriate. Slightly anxious Labs, Imaging, and Studies reviewed: Results from last 7 days Lab Units 05/09/22 1032 WBC K/mcL 7.63 HGB g/dL 12.5* HCT % 36.3* PLT K/mcL 343 Results from last 7 days Lab Units 05/09/22 1032 SODIUM mmol/L 133* POTASSIUM mmol/L 4.4 CHLORIDE mmol/L 96* BICARB mmol/L 24 BUN mg/dL 22 CREATININE mg/dL 1.75* EGFR mL/min/1.73 m2 42* GLUCOSE mg/dL 120* CALCIUM mg/dL 9.0 Results from last 7 days Lab Units 05/09/22 1032 INR 1.2* INTERVAL HISTORY AND PHYSICAL Patient Name: Jamar Richter Admit Date: 12160625 MR #: [id number] : 1955 The H&P has been reviewed and the patient has been examined. I concur with the findings of the H&P. There are no significant changes. It is appropriate to proceed with the planned procedure. Arslan Parada MD 05/09/2022 12:37 PM Source Note - Arslan Parada MD - 05/09/2022 12:33 PM EST Patient Name: Jamar Richter Admit Date: 12160625 MR #: [id number] : 1955 Physicians: No primary care provider on file. (Family); Arslan Parada MD (Referring) Chief Complaint/Reason for Visit: left ureteral stone Assessment and Plan/Recommendations: Jamar Richter is a 66 y.o. y/o male presenting with left ureteral stone -- here with intractable left-sided renal colic -- Negative urinalysis without leukocytosis and with EVON -- CAT scan of the time revealed bilateral nonobstructing stones and left-sided hydronephrosis secondary to a 6 mm distal ureteral stone. -- As such, he was counseled on the risks, benefits, alternatives of a cystoscopy, left ureteroscopy, laser lithotripsy, stone extraction and placement of left ureteral stent. -- he was counseled on the risks, benefits, alternatives of a cystoscopy, left ureteroscopy, laser lithotripsy, stone extraction and placement of left ureteral stent. No new Assessment & Plan notes have been filed under this hospital service since the last note was generated. Service: Urology History of Present Illness: This is a 66-year-old male here with intractable left-sided renal colic. He was initially diagnosed with a kidney stone 1 week prior to admission at an outside facility. CAT scan of the time revealed bilateral nonobstructing stones and left-sided hydronephrosis secondary to a 6 mm distal ureteral stone. He was discharged with medical expulsive therapy. Unfortunately, he has developed intractable left-sided renal colic refractory to opioid analgesia. He subsequently presented here for further evaluation. History: Past Medical History: Diagnosis Date Renal disorder Past Surgical History: Procedure Laterality Date ORTHOPEDIC SURGERY History reviewed. No pertinent family history. Social History Tobacco Use Smoking status: Never Smokeless tobacco: Never Substance and Sexual Activity Alcohol use: Never Drug use: Never Allergy Information: I have reviewed the patient's allergies. Patient has no known allergies. Home Medications: No current outpatient medications on file as of 05/09/2022. Review of Systems: The following system(s) were reviewed and pertinent findings noted: All other systems reviewed and negative other than HPI Physical Examination: Vital Signs: BP 139/77 (BP Location: Right arm, Patient Position: Sitting) Pulse 94 Temp 98.3 F (36.8 C) (Oral) Resp 18 Ht 5' 9 Wt 78.9 kg (173 lb 14.4 oz) SpO2 96% BMI 25.68 kg/m General: Alert, cooperative, no distress, appears stated age Head: Normocephalic, without obvious abnormality, atraumatic Eyes: PERRL, conjunctiva/corneas clear Throat: Lips, mucosa, and tongue normal Neck: Supple, symmetrical, trachea midline Back: Symmetric, no curvature Lungs: Respirations unlabored,normal respiratory effort Chest Wall: No tenderness or deformity Cardiovascular: Regular rate and rhythm Abdomen: Soft, non-tender Extremities: Normal, atraumatic, no cyanosis or edema Skin: Skin color, texture, turgor normal, no rashes or lesions Musculoskeletal: Full range of motion of all extremities; no joint edema Neurologic: CNII-XII intact; normal strength Psych: Mood and affect appropriate : Laboratory and Additional Data Reviewed: Laboratory 05/09/22 12:37 PM Microbiology 05/09/22 12:37 PM Radiology 05/09/22 12:37 PM Assessment Detail: documented in this encounter [facility] 05-09-2022 Attending History and physical note INTERVAL HISTORY AND PHYSICAL Patient Name: Jamar Richter Admit Date: 12160625 MR #: [id number] : 1955 The H&P has been reviewed and the patient has been examined. I concur with the findings of the H&P. There are no significant changes. It is appropriate to proceed with the planned procedure. Arslan Parada MD 05/09/2022 12:37 PM Source Note - Arslan Parada MD - 05/09/2022 12:33 PM EST Patient Name: Jamar Richter Admit Date: 12160625 MR #: [id number] : 1955 Physicians: No primary care provider on file. (Family); Arslan Parada MD (Referring) Chief Complaint/Reason for Visit: left ureteral stone Assessment and Plan/Recommendations: Jamar Richter is a 66 y.o. y/o male presenting with left ureteral stone -- here with intractable left-sided renal colic -- Negative urinalysis without leukocytosis and with EVON -- CAT scan of the time revealed bilateral nonobstructing stones and left-sided hydronephrosis secondary to a 6 mm distal ureteral stone. -- As such, he was counseled on the risks, benefits, alternatives of a cystoscopy, left ureteroscopy, laser lithotripsy, stone extraction and placement of left ureteral stent. -- he was counseled on the risks, benefits, alternatives of a cystoscopy, left ureteroscopy, laser lithotripsy, stone extraction and placement of left ureteral stent. No new Assessment & Plan notes have been filed under this hospital service since the last note was generated. Service: Urology History of Present Illness: This is a 66-year-old male here with intractable left-sided renal colic. He was initially diagnosed with a kidney stone 1 week prior to admission at an outside facility. CAT scan of the time revealed bilateral nonobstructing stones and left-sided hydronephrosis secondary to a 6 mm distal ureteral stone. He was discharged with medical expulsive therapy. Unfortunately, he has developed intractable left-sided renal colic refractory to opioid analgesia. He subsequently presented here for further evaluation. History: Past Medical History: Diagnosis Date Renal disorder Past Surgical History: Procedure Laterality Date ORTHOPEDIC SURGERY History reviewed. No pertinent family history. Social History Tobacco Use Smoking status: Never Smokeless tobacco: Never Substance and Sexual Activity Alcohol use: Never Drug use: Never Allergy Information: I have reviewed the patient's allergies. Patient has no known allergies. Home Medications: No current outpatient medications on file as of 05/09/2022. Review of Systems: The following system(s) were reviewed and pertinent findings noted: All other systems reviewed and negative other than HPI Physical Examination: Vital Signs: BP 139/77 (BP Location: Right arm, Patient Position: Sitting) Pulse 94 Temp 98.3 F (36.8 C) (Oral) Resp 18 Ht 5' 9 Wt 78.9 kg (173 lb 14.4 oz) SpO2 96% BMI 25.68 kg/m General: Alert, cooperative, no distress, appears stated age Head: Normocephalic, without obvious abnormality, atraumatic Eyes: PERRL, conjunctiva/corneas clear Throat: Lips, mucosa, and tongue normal Neck: Supple, symmetrical, trachea midline Back: Symmetric, no curvature Lungs: Respirations unlabored,normal respiratory effort Chest Wall: No tenderness or deformity Cardiovascular: Regular rate and rhythm Abdomen: Soft, non-tender Extremities: Normal, atraumatic, no cyanosis or edema Skin: Skin color, texture, turgor normal, no rashes or lesions Musculoskeletal: Full range of motion of all extremities; no joint edema Neurologic: CNII-XII intact; normal strength Psych: Mood and affect appropriate : Laboratory and Additional Data Reviewed: Laboratory 05/09/22 12:37 PM Microbiology 05/09/22 12:37 PM Radiology 05/09/22 12:37 PM Assessment Detail: [facility] 05-09-2022 Consult note Associated Order (s): IP CONSULT TO UROLOGY Patient Name: Jamar Richter Admit Date: 12160625 MR #: [id number] : 1955 Physicians: No primary care provider on file. (Family); Arslan Parada MD (Referring) Chief Complaint/Reason for Visit: left ureteral stone Assessment and Plan/Recommendations: Jamar Richter is a 66 y.o. y/o male presenting with left ureteral stone -- here with intractable left-sided renal colic -- Negative urinalysis without leukocytosis and with EVON -- CAT scan of the time revealed bilateral nonobstructing stones and left-sided hydronephrosis secondary to a 6 mm distal ureteral stone. -- he was counseled on the risks, benefits, alternatives of a cystoscopy, left ureteroscopy, laser lithotripsy, stone extraction and placement of left ureteral stent. No new Assessment & Plan notes have been filed under this hospital service since the last note was generated. Service: Urology History of Present Illness: This is a 66-year-old male here with intractable left-sided renal colic. He was initially diagnosed with a kidney stone 1 week prior to admission at an outside facility. CAT scan of the time revealed bilateral nonobstructing stones and left-sided hydronephrosis secondary to a 6 mm distal ureteral stone. He was discharged with medical expulsive therapy. Unfortunately, he has developed intractable left-sided renal colic refractory to opioid analgesia. He subsequently presented here for further evaluation. History: Past Medical History: Diagnosis Date Renal disorder Past Surgical History: Procedure Laterality Date ORTHOPEDIC SURGERY History reviewed. No pertinent family history. Social History Tobacco Use Smoking status: Never Smokeless tobacco: Never Substance and Sexual Activity Alcohol use: Never Drug use: Never Allergy Information: I have reviewed the patient's allergies. Patient has no known allergies. Home Medications: No current outpatient medications on file as of 05/09/2022. Review of Systems: The following system(s) were reviewed and pertinent findings noted: All other systems reviewed and negative other than HPI Physical Examination: Vital Signs: BP 139/77 (BP Location: Right arm, Patient Position: Sitting) Pulse 94 Temp 98.3 F (36.8 C) (Oral) Resp 18 Ht 5' 9 Wt 78.9 kg (173 lb 14.4 oz) SpO2 96% BMI 25.68 kg/m General: Alert, cooperative, no distress, appears stated age Head: Normocephalic, without obvious abnormality, atraumatic Eyes: PERRL, conjunctiva/corneas clear Throat: Lips, mucosa, and tongue normal Neck: Supple, symmetrical, trachea midline Back: Symmetric, no curvature Lungs: Respirations unlabored,normal respiratory effort Chest Wall: No tenderness or deformity Cardiovascular: Regular rate and rhythm Abdomen: Soft, non-tender Extremities: Normal, atraumatic, no cyanosis or edema Skin: Skin color, texture, turgor normal, no rashes or lesions Musculoskeletal: Full range of motion of all extremities; no joint edema Neurologic: CNII-XII intact; normal strength Psych: Mood and affect appropriate : Laboratory and Additional Data Reviewed: Laboratory 05/09/22 12:37 PM Microbiology 05/09/22 12:37 PM Radiology 05/09/22 12:37 PM Assessment Detail: [facility] 05-09-2022 Consult note Associated Order (s): IP CONSULT TO UROLOGY Patient Name: Jamar Richter Admit Date: 12160625 MR #: [id number] : 1955 Physicians: No primary care provider on file. (Family); Arslan Parada MD (Referring) Chief Complaint/Reason for Visit: left ureteral stone Assessment and Plan/Recommendations: Jamar Richter is a 66 y.o. y/o male presenting with left ureteral stone -- here with intractable left-sided renal colic -- Negative urinalysis without leukocytosis and with EVON -- CAT scan of the time revealed bilateral nonobstructing stones and left-sided hydronephrosis secondary to a 6 mm distal ureteral stone. -- he was counseled on the risks, benefits, alternatives of a cystoscopy, left ureteroscopy, laser lithotripsy, stone extraction and placement of left ureteral stent. No new Assessment & Plan notes have been filed under this hospital service since the last note was generated. Service: Urology History of Present Illness: This is a 66-year-old male here with intractable left-sided renal colic. He was initially diagnosed with a kidney stone 1 week prior to admission at an outside facility. CAT scan of the time revealed bilateral nonobstructing stones and left-sided hydronephrosis secondary to a 6 mm distal ureteral stone. He was discharged with medical expulsive therapy. Unfortunately, he has developed intractable left-sided renal colic refractory to opioid analgesia. He subsequently presented here for further evaluation. History: Past Medical History: Diagnosis Date Renal disorder Past Surgical History: Procedure Laterality Date ORTHOPEDIC SURGERY History reviewed. No pertinent family history. Social History Tobacco Use Smoking status: Never Smokeless tobacco: Never Substance and Sexual Activity Alcohol use: Never Drug use: Never Allergy Information: I have reviewed the patient's allergies. Patient has no known allergies. Home Medications: No current outpatient medications on file as of 05/09/2022. Review of Systems: The following system(s) were reviewed and pertinent findings noted: All other systems reviewed and negative other than HPI Physical Examination: Vital Signs: BP 139/77 (BP Location: Right arm, Patient Position: Sitting) Pulse 94 Temp 98.3 F (36.8 C) (Oral) Resp 18 Ht 5' 9 Wt 78.9 kg (173 lb 14.4 oz) SpO2 96% BMI 25.68 kg/m General: Alert, cooperative, no distress, appears stated age Head: Normocephalic, without obvious abnormality, atraumatic Eyes: PERRL, conjunctiva/corneas clear Throat: Lips, mucosa, and tongue normal Neck: Supple, symmetrical, trachea midline Back: Symmetric, no curvature Lungs: Respirations unlabored,normal respiratory effort Chest Wall: No tenderness or deformity Cardiovascular: Regular rate and rhythm Abdomen: Soft, non-tender Extremities: Normal, atraumatic, no cyanosis or edema Skin: Skin color, texture, turgor normal, no rashes or lesions Musculoskeletal: Full range of motion of all extremities; no joint edema Neurologic: CNII-XII intact; normal strength Psych: Mood and affect appropriate : Laboratory and Additional Data Reviewed: Laboratory 05/09/22 12:37 PM Microbiology 05/09/22 12:37 PM Radiology 05/09/22 12:37 PM Assessment Detail: documented in this encounter [facility] 05-09-2022 Physician Emergency department Note ED PROVIDER NOTE [facility] EMERGENCY DEPARTMENT NAME: Jamar Richter AGE: 66 y.o. : 1955 VISIT DATE: 05/09/2022 CSN: [id number] PCP: No primary care provider on file. Chief Complaint Patient presents with Flank Pain HPI Patient presents for kidney stone. Sent in by urologist to have the procedure done. Had kidney stone pain that he has had in the past on the left side since Wednesday last week. Comes and goes. No radiation. No nausea vomiting. No fevers. No urinary complaints. No testicular pain. He has had seizures done in the past. He is not on any blood thinners. He was seen at outside facility and had CT imaging showing a 6 mm stone and was told to come here for admission and urology procedure. Patient denies the pain at this time. Past Medical History: Diagnosis Date Renal disorder Past Surgical History: Procedure Laterality Date ORTHOPEDIC SURGERY History reviewed. No pertinent family history. Social History Tobacco Use Smoking status: Never Smokeless tobacco: Never Substance and Sexual Activity Alcohol use: Never Drug use: Never No current outpatient medications on file prior to encounter. No Known Allergies Review of Systems Constitutional: Negative for chills, diaphoresis, fatigue and fever. HENT: Negative for congestion and sore throat. Eyes: Negative for visual disturbance. Respiratory: Negative for cough and shortness of breath. Cardiovascular: Negative for chest pain. Gastrointestinal: Negative for abdominal pain, nausea and vomiting. Genitourinary: Positive for flank pain. Negative for dysuria. Musculoskeletal: Negative for back pain and neck pain. Skin: Negative for rash and wound. Neurological: Negative for dizziness and headaches. Psychiatric/Behavioral: Negative for behavioral problems and suicidal ideas. Patient Vitals for the past 24 hrs: BP Temp Temp src Pulse Resp SpO2 Height Weight 12/17/22 1023 139/77 98.3 F (36.8 C) Oral 94 18 96 % 5' 9 78.9 kg (173 lb 14.4 oz) Physical Exam Vitals and nursing note reviewed. Constitutional: General: He is not in acute distress. Appearance: Normal appearance. He is normal weight. He is not ill-appearing, toxic-appearing or diaphoretic. HENT: Head: Normocephalic and atraumatic. Right Ear: External ear normal. Left Ear: External ear normal. Nose: Nose normal. Eyes: Extraocular Movements: Extraocular movements intact. Conjunctiva/sclera: Conjunctivae normal. Cardiovascular: Rate and Rhythm: Normal rate and regular rhythm. Pulses: Normal pulses. Heart sounds: Normal heart sounds. Musculoskeletal: General: No swelling, tenderness, deformity or signs of injury. Normal range of motion. Cervical back: Normal range of motion. No rigidity. No muscular tenderness. Right lower leg: No edema. Left lower leg: No edema. Comments: No midline back tenderness, no cva tenderness at this time Normal gait Intact strength Pulmonary: Effort: Pulmonary effort is normal. No respiratory distress. Breath sounds: Normal breath sounds. No stridor. No wheezing. Abdominal: General: There is no distension. Palpations: There is no mass. Tenderness: There is no abdominal tenderness. There is no guarding or rebound. Hernia: No hernia is present. Skin: General: Skin is warm. Capillary Refill: Capillary refill takes less than 2 seconds. Findings: No erythema or rash. Neurological: General: No focal deficit present. Mental Status: He is alert and oriented to person, place, and time. Motor: No weakness. Coordination: Coordination normal. Gait: Gait normal. Psychiatric: Attention and Perception: Attention normal. Mood and Affect: Mood normal. Speech: Speech normal. Behavior: Behavior normal. Thought Content: Thought content normal. Cognition and Memory: Cognition normal. Laboratory & Radiographic Imaging (if done): No results found for this visit on 05/09/22. CT Comparison Import Final Result Procedures MDM MDM: Patient presents for evaluation of a kidney stone diagnosed as an outpatient. Sent in by urologist for procedure. Per their notes to be a transfer center they did recommend admission to medicine for medical clearance. Urology consultation placed. Will obtain blood work, urine studies and provide symptom control as needed. Abdomen soft nontender he has no signs of sepsis. He currently has no pain. Differential includes but not limited to kidney stone, infection, EVON, musculoskeletal back pain I have reviewed patient's past history, prior imaging, labs, nursing notes, and vitals. Patient Vitals for the past 24 hrs: BP Temp Temp src Pulse Resp SpO2 Height Weight 05/09/22 1023 139/77 98.3 F (36.8 C) Oral 94 18 96 % 5' 9 78.9 kg (173 lb 14.4 oz) Medications Administered (if any) Medications sodium chloride (PF) (NS) flush 5 mL (has no administration in time range) And sodium chloride 0.9% (NS) (has no administration in time range) Laboratory Results Labs Reviewed URINALYSIS BASIC METABOLIC PANEL CBC AND DIFFERENTIAL Narrative: The following orders were created for panel order CBC w/ Diff. Procedure Abnormality Status --------- ------ CBC Auto Differential[[id number]] In process Please view results for these tests on the individual orders. PT/INR CBC WITH AUTO DIFFERENTIAL Imaging Results CT Comparison Import Final Result All imaging has been read by a Radiologist. Note: To expedite correspondence this note was generated by [employer] voice recognition software. This note was partially created using voice recognition software and is inherently subject to errors including those of syntax and sound-alike substitutions which may escape proofreading. In such instances, original meaning may be extrapolated by contextual derivation. Clinical Impression: 1. Kidney stone 2. Flank pain ED Disposition ED Disposition Hospitalize Condition -- Comment Phone call required?: No Follow-up Information Follow-up information has not been specified. Contact information for after-discharge care Follow-up information has not been specified. Brad Calderón MD 05/09/22 1048 [employer] Work Phone: 05-09-2022 Emergency department Note ED PROVIDER NOTE [facility] EMERGENCY DEPART[facility] NAME: Jamar Richter AGE: 66 y.o. : 1955 VISIT DATE: 05/09/2022 CSN: [id number] PCP: No primary care provider on file. Chief Complaint Patient presents with Flank Pain HPI Patient presents for kidney stone. Sent in by urologist to have the procedure done. Had kidney stone pain that he has had in the past on the left side since Wednesday last week. Comes and goes. No radiation. No nausea vomiting. No fevers. No urinary complaints. No testicular pain. He has had seizures done in the past. He is not on any blood thinners. He was seen at outside facility and had CT imaging showing a 6 mm stone and was told to come here for admission and urology procedure. Patient denies the pain at this time. Past Medical History: Diagnosis Date Renal disorder Past Surgical History: Procedure Laterality Date ORTHOPEDIC SURGERY History reviewed. No pertinent family history. Social History Tobacco Use Smoking status: Never Smokeless tobacco: Never Substance and Sexual Activity Alcohol use: Never Drug use: Never No current outpatient medications on file prior to encounter. No Known Allergies Review of Systems Constitutional: Negative for chills, diaphoresis, fatigue and fever. HENT: Negative for congestion and sore throat. Eyes: Negative for visual disturbance. Respiratory: Negative for cough and shortness of breath. Cardiovascular: Negative for chest pain. Gastrointestinal: Negative for abdominal pain, nausea and vomiting. Genitourinary: Positive for flank pain. Negative for dysuria. Musculoskeletal: Negative for back pain and neck pain. Skin: Negative for rash and wound. Neurological: Negative for dizziness and headaches. Psychiatric/Behavioral: Negative for behavioral problems and suicidal ideas. Patient Vitals for the past 24 hrs: BP Temp Temp src Pulse Resp SpO2 Height Weight 05/09/22 1023 139/77 98.3 F (36.8 C) Oral 94 18 96 % 5' 9 78.9 kg (173 lb 14.4 oz) Physical Exam Vitals and nursing note reviewed. Constitutional: General: He is not in acute distress. Appearance: Normal appearance. He is normal weight. He is not ill-appearing, toxic-appearing or diaphoretic. HENT: Head: Normocephalic and atraumatic. Right Ear: External ear normal. Left Ear: External ear normal. Nose: Nose normal. Eyes: Extraocular Movements: Extraocular movements intact. Conjunctiva/sclera: Conjunctivae normal. Cardiovascular: Rate and Rhythm: Normal rate and regular rhythm. Pulses: Normal pulses. Heart sounds: Normal heart sounds. Musculoskeletal: General: No swelling, tenderness, deformity or signs of injury. Normal range of motion. Cervical back: Normal range of motion. No rigidity. No muscular tenderness. Right lower leg: No edema. Left lower leg: No edema. Comments: No midline back tenderness, no cva tenderness at this time Normal gait Intact strength Pulmonary: Effort: Pulmonary effort is normal. No respiratory distress. Breath sounds: Normal breath sounds. No stridor. No wheezing. Abdominal: General: There is no distension. Palpations: There is no mass. Tenderness: There is no abdominal tenderness. There is no guarding or rebound. Hernia: No hernia is present. Skin: General: Skin is warm. Capillary Refill: Capillary refill takes less than 2 seconds. Findings: No erythema or rash. Neurological: General: No focal deficit present. Mental Status: He is alert and oriented to person, place, and time. Motor: No weakness. Coordination: Coordination normal. Gait: Gait normal. Psychiatric: Attention and Perception: Attention normal. Mood and Affect: Mood normal. Speech: Speech normal. Behavior: Behavior normal. Thought Content: Thought content normal. Cognition and Memory: Cognition normal. Laboratory & Radiographic Imaging (if done): No results found for this visit on 05/09/22. CT Comparison Import Final Result Procedures MDM MDM: Patient presents for evaluation of a kidney stone diagnosed as an outpatient. Sent in by urologist for procedure. Per their notes to be a transfer center they did recommend admission to medicine for medical clearance. Urology consultation placed. Will obtain blood work, urine studies and provide symptom control as needed. Abdomen soft nontender he has no signs of sepsis. He currently has no pain. Differential includes but not limited to kidney stone, infection, EVON, musculoskeletal back pain I have reviewed patient's past history, prior imaging, labs, nursing notes, and vitals. Patient Vitals for the past 24 hrs: BP Temp Temp src Pulse Resp SpO2 Height Weight 05/09/22 1023 139/77 98.3 F (36.8 C) Oral 94 18 96 % 5' 9 78.9 kg (173 lb 14.4 oz) Medications Administered (if any) Medications sodium chloride (PF) (NS) flush 5 mL (has no administration in time range) And sodium chloride 0.9% (NS) (has no administration in time range) Laboratory Results Labs Reviewed URINALYSIS BASIC METABOLIC PANEL CBC AND DIFFERENTIAL Narrative: The following orders were created for panel order CBC w/ Diff. Procedure Abnormality Status --------- ------ CBC Auto Differential[[id number]] In process Please view results for these tests on the individual orders. PT/INR CBC WITH AUTO DIFFERENTIAL Imaging Results CT Comparison Import Final Result All imaging has been read by a Radiologist. Note: To expedite correspondence this note was generated by [employer] voice recognition software. This note was partially created using voice recognition software and is inherently subject to errors including those of syntax and sound-alike substitutions which may escape proofreading. In such instances, original meaning may be extrapolated by contextual derivation. Clinical Impression: 1. Kidney stone 2. Flank pain ED Disposition ED Disposition Hospitalize Condition -- Comment Phone call required?: No Follow-up Information Follow-up information has not been specified. Contact information for after-discharge care Follow-up information has not been specified. Brad Calderón MD 05/09/22 1048 [place] [facility] Note: Pt is coming for kidney stone. Admit pt Dr. Parada. Do not admit to hospitalist. Pt just needs a UA. No imaging needs to be done. Pt had a CT scan done at [facility]. Images are on PACS and needs pushed over when available documented in this encounter [facility] 05-09-2022 Emergency department Triage note [facility] Note: Pt is coming for kidney stone. Admit pt Dr. Parada. Do not admit to hospitalist. Pt just needs a UA. No imaging needs to be done. Pt had a CT scan done at [facility]. Images are on PACS and needs pushed over when available [facility] documented in this encounter [facility] Advance Directives Latest Code Status on File Code Status Date Activated Date Inactivated Comments Full Code 05/09/2022 1:31 PM 05/09/2022 8:25 PM Additional Source Comments Reason for Visit (unrecogniz ed section and content) Specialty Diagnoses / Procedures Referred By Adair t Referred To Contact Diagnoses Kidney stone Nephrolithiasis Elevated creatine kinase Flank pain kidney stone Referral ID Status Reason Start Date Expiration Date Visits Re quested Visits Authorized [id number] 1 1 Scheduled Active and Recently Administ ered Medications (unrecognized section and content) Continuous Medication Order 05/07/2022 05/08/2022 05/09/2022 sodium chloride 0.9% (NS) 75 mL/hr, Intravenous, Continuous, Starting on 05/09/22 at 1340 1340 (Due)1416 (JUL Hold - Provider: Transfer Provider, Automatic - Reason: Patient not available)2019 (JUL Unhold - Provider: Discharge Provider, Automatic) PRN Medication Order 05/07/2022 05/08/2022 05/09/2022 fentaNYL (SUBLIMAZE) injection 25 mcg 25 mcg, Intravenous, Every 5 min PRN, Pain, Starting on 05/09/22 at 1647, For 4 doses, PACU (only), [] Do not give more than 100 mcg while in PACU. hydrALAZINE (APRESOLINE) injection 5 mg 5 mg, Intravenous, Every 15 min PRN, SBP greater than 160 or DBP greater than 90, Starting on 05/09/22 at 1647, For 4 doses, PACU (only), [] Do not give more than 20 mg total. [] Hold for HR greater than 100. [] Administer if labetalol or metoprolol ineffective at maximum dose or not ordered. HYDROmorphone (PF) (DILAUDID) injection 0.5 mg 0.5 mg, Intravenous, Every 10 min PRN, Pain, Starting on 05/09/22 at 1647, For 6 doses, PACU (only), Give if fentanyl not effective or not ordered. Do not give more than 3 mg total. iopamidoL (ISOVUE-370) 370 mg iodine /mL (76 %) injection (CANCELED) As needed, Starting on 05/09/22 at 1515, Intra-Procedure 1515 (Given - Provid er: Arslan Parada MD - Comment: on back table) labetaloL (NORMODYNE,TRANDATE) injection 5 mg 5 mg, Intravenous, Every 5 min PRN, SBP greater than 160 or DBP greater than 90, Starting on 05/09/22 at 1647, For 4 doses, PACU (only), Do not give more than 20 mg total. Hold for HR less than 50. naloxone (NARCAN) injection 0.1 mg(Linked Group 1) 0.1 mg, Intravenous, As needed, opioid reversal, Starting on 05/09/22 at 1647, PACU (only), [] Mix nalOXone (NARCAN) 0.4 mg (1ml) with 9 mL of Normal Saline to total 10 mL. [] Administer 0.1 mg (2.5ml) IV Push every 2 minutes until respiratory rate is 10 or greater. naloxone (NARCAN) injection 0.4 mg(Linked Group 1) 0.4 mg, Intravenous, As needed, opioid reversal, patient is pulseless, breathless, and unresponsive, Starting on 05/09/22 at 1647, PACU (only), Call a code first, then administer naloxone dose undiluted IV Push over 30 seconds. ondansetron (ZOFRAN) injection 4 mg 4 mg, Intravenous, Every 15 min PRN, nausea, vomiting, Starting on 05/09/22 at 1647, For 2 doses, PACU (only), Do not give more than 2 doses. Administer first as needed for nausea/vomiting, or as directed by anesthesia oxyCODONE-acetaminophen (PERCOCET) 5-325 mg per tablet 1 tablet 1 tablet, Oral, Once as needed, Pain, Starting on 05/09/22 at 1647, For 1 dose, PACU (only), While in PACU when tolerating orals. Use oral route first, if tolerated. sodium chloride (NS) 0.9 % irrigation solution (CANCELED) As needed, Starting on 05/09/22 at 1515, Intra-Procedure 1515 (Given - Provid er: Arslan Parada MD - Comment: hanging) sodium chloride (PF) (NS) flush 5 mL(Linked Group 2) 5 mL, Intravenous, As needed, line care, Starting on 05/09/22 at 1035 1416 (MAR Hold - Pro vider: Transfer Provider, Automatic - Reason: Patient not available)2019 (MAR Unhold - Provider: Discharge Provider, Automatic) sodium chloride 0.9% (NS)(Linked Group 2) 0-150 mL/hr, Intravenous, As needed, To flush line after IV infusions when no maintenance IV ordered or a compatibility issue. Infuse 20ml at the same rate as the secondary infusion, Starting on 05/09/22 at 1035, Run as Primary IV. NOT intended for KVO. 1416 (JUL Hold - Pro vider: Transfer Provider, Automatic - Reason: Patient not available)2019 (JUL Unhold - Provider: Discharge Provider, Automatic) Linked Groups Order Group 1: Notify Anesthesiologist (CANCELED) STAT, Until discontinued, Starting on 05/09/22 at 1648, Until Specified
Notify anesthesiologist immediately if respiratory rate less than or equal to 8 breaths per minute., PACU (only) And naloxone (NARCAN) injection 0.1 mgJump to med 0.1 mg, Intravenous, As needed, opioid reversal, Starting on 05/09/22 at 1647, PACU (only)
[] Mix nalOXone (NARCAN) 0.4 mg (1ml) with 9 mL of Normal Saline to total 10 mL. [] Administer 0.1 mg (2.5ml) IV Push every 2 minutes until respiratory rate is 10 or greater.
And naloxone (NARCAN) injection 0.4 mgJump to med 0.4 mg, Intravenous, As needed, opioid reversal, patient is pulseless, breathless, and unresponsive, Starting on 05/09/22 at 1647, PACU (only)
Call a code first, then administer naloxone dose undiluted IV Push over 30 seconds.
Group 2: Insert peripheral IV (COMPLETED) MARIA L, Once, On 05/09/22 at 1040, For 1 occurrence And Saline lock IV (CANCELED) MARIA L, Once, On 05/09/22 at 1040, For 1 occurrence And sodium chloride (PF) (NS) flush 5 mLJump to med 5 mL, Intravenous, As needed, line care, Starting on 05/09/22 at 1035 And sodium chloride 0.9% (NS)Jump to med 0-150 mL/hr, Intravenous, As needed, To flush line after IV infusions when no maintenance IV ordered or a compatibility issue. Infuse 20ml at the same rate as the secondary infusion, Starting on 05/09/22 at 1035
Run as Primary IV. NOT intended for KVO.
FOR RECORDS PERTAINING TO PATIENTS WHO ARE OR HAVE BEEN ENROLLED IN A CHEMICAL DEPENDENCY/SUBSTANCEABUSE PROGRAM, SOME INFORMATION MAY BE OMITTED. This clinical summary was aggregated from multiple sources. Caution should be exercised in using it in the provision of clinical care. This summary normalizes information from multiple sources, and as a consequence, information in this document may materially change the coding, format and clinical context of patient data. In addition, data may be omitted in some cases. CLINICAL DECISIONS SHOULD BE BASED ON THE PRIMARY CLINICAL RECORDS. [employer] provides no warranty or guarantee of the accuracy or completeness of information in this document.
== END | disposition home or self-care (01) ==
LOC: LAB 14:42
PROVIDERS: PCP Family Medicine; Referring Provider Urology; Visit Provider Urology
DX: Z12.5 Encounter for screening for malignant neoplasm of prostate (principal)
CPT/HCPCS: 36415; 84153; G0103

== ENCOUNTER → 2024-07-24 | Outpatient (CLI) | payer MEDICARE, SELFPAY ==
[2024-07-24 11:47] LABS: PSA,Total - Annual Screen 1.27 ng/mL (0.02-4.00)
== END | disposition home or self-care (01) ==
LOC: LAB 10:44
PROVIDERS: PCP Family Medicine; Referring Provider Urology; Visit Provider Urology
DX: Z12.5 Encounter for screening for malignant neoplasm of prostate (principal)
CPT/HCPCS: 36415; 84153; G0103

== ENCOUNTER → 2025-03-21 | Outpatient (CLI) | payer MEDICARE, SELFPAY ==
--- NOTE | 2025-03-21 16:10 | CT_ITS ---
PROCEDURE: CT ABDOMEN/PELVIS WITHOUT CONT 03/21/2025 REASON FOR EXAM: KIDNEY STONE PROTOCOL TECHNIQUE: Procedure Code: CTABDPEL Modality: CT Procedure: ABDOMEN/PELVIS WITHOUT CONT Noncontrast technique limits evaluation of the abdominal and pelvic viscera. Coronal and Sagittal reconstruction series were provided. One or more dose reduction techniques were used (e.g., Automated exposure control, adjustment of the mA and/or kV according to patient size, use of iterative reconstruction technique). RADIATION DOSE SUMMARY: CTDlvol: 6.19 mGy DLP: 315.25 mGycm COMPARISON: None. FINDINGS: Lung bases: Clear. Liver: Unremarkable. Gallbladder: Unremarkable. Spleen: Unremarkable. Pancreas: Unremarkable. Adrenals: Unremarkable. Kidneys: Several bilateral small subcentimeter nonobstructive renal stones, the largest in the lower pole of the right kidney measuring 5 mm. No ureteral calculi or hydroureteronephrosis on either side. No perinephric edema; nothing to suggest a recently passed stone. Bladder: Unremarkable. No stone within the bladder. Reproductive Organs: Unremarkable, nonenlarged prostate. Bowel: No evidence of obstruction or active inflammatory process. Appendix is not well-visualized but there are no pericecal inflammatory changes. Moderate colonic stool burden. Lymph nodes: No enlarged abdominopelvic lymph nodes. Vasculature: Normal caliber abdominal aorta. Mild atherosclerotic disease. Peritoneum / Retroperitoneum: No ascites or free air. Bones: Minimal degenerative changes of the spine and bilateral hips. CT/Abdomen/Pelvis without Cont IMPRESSION: No acute intra-abdominal abnormality. Several bilateral subcentimeter nonobstr uctive renal stones. No ureteral calculi or hydroureteronephrosis on either side. No perinephric edema. Reading Location: [id number]
== END | disposition home or self-care (01) ==
PROVIDERS: PCP Family Medicine; Referring Provider Urology; Visit Provider Urology
DX: N20.0 Calculus of kidney (principal)
CPT/HCPCS: 74176

== ENCOUNTER 2025-04-01 06:18 | Inpatient (IN) | payer MEDICARE, SELFPAY ==
[2025-04-01 06:19] VITALS: BP 127/82; PULSE 87; RESP 29; TEMP 36.7; O2SAT 100; BMI 23.9
--- NOTE | 2025-04-01 06:24 | RAD_ITS ---
PROCEDURE: CHEST 1 VIEW (PORTABLE) 04/01/2025 REASON FOR EXAM: FALL DOWN STAIRS TECHNIQUE: Frontal view of the chest. COMPARISON: CT chest 04/01/2025. FINDINGS: Hardware: Monitor electrodes overlie the chest. Heart: No cardiomegaly. Lungs: Clear. No pleural effusion or pneumothorax. Bones: No acute bony abnormalities. RAD/Chest 1 View (Portable) IMPRESSION: No acute cardiopulmonary abnormalities. Reading Location: [id number]
--- NOTE | 2025-04-01 06:26 | EKG12_ITS ---
Test Reason : TRAUMA Blood Pressure : */* mmHG Vent. Rate : 86 BPM Atrial Rate : 86 BPM P-R Int : 154 ms QRS Dur : 82 ms QT Int : 366 ms P-R-T Axes : 73 71 66 degrees QTcB Int : 437 ms Normal sinus rhythm Normal ECG Confirmed by Chino Hyde ([id number]), senior technical editor ALEC OCASIO ([id number]) on 04/02/2025 10:27:34 AM Referred By: Confirmed By: Chino Hyde
--- NOTE | 2025-04-01 06:35 | CT_ITS ---
PROCEDURE: CTA CHEST W/WO CONTRAST 04/01/2025 REASON FOR EXAM: FALL DOWN STAIRS AND R/O PE TECHNIQUE: Procedure Code: CTCTACHWW Modality: CT Procedure: CTA CHEST W/WO CONTRAST Multiplanar Sagittal and Coronal images were obtained. CONTRAST: Isovue 370 VOLUME: 96 mL One or more dose reduction techniques were used (e.g., Automated exposure control, adjustment of the mA and/or kV according to patient size, use of iterative reconstruction technique). RADIATION DOSE SUMMARY: CTDlvol: 16.80 mGy DLP: 2654.11 mGycm COMPARISON: None. # of known CTs in the past 12 months: 0. # of known Cardiac Nuclear Medicine Studies in the past 12 months: 0. FINDINGS: Thoracic Aorta: No aneurysm. No dissection. Heart: No cardiomegaly. Atherosclerotic calcifications. Pulmonary Vessels: No evidence of pulmonary embolism. Hardware: None. Lymph nodes: No lymphadenopathy. Lungs and Airways: Clear. Pleura: No pleural effusion or pneumothorax. Upper Abdomen: No acute findings. Bones: No acute bony abnormalities. CT/CTA Chest W/WO Contrast IMPRESSION: No acute cardiopulmonary abnormalities. Reading Location: [id number]
--- NOTE | 2025-04-01 06:35 | CT_ITS ---
PROCEDURE: BRAIN/HEAD WITHOUT CONTRAST; SPINE CERVICAL WITHOUT CONTRAS 04/01/2025 REASON FOR EXAM: FALL DOWN STAIRS TECHNIQUE: Procedure Code: CTBR; CTSPC Modality: CT Procedure: BRAIN/HEAD WITHOUT CONTRAST; SPINE CERVICAL WITHOUT CONTRAS Coronal and Sagittal reconstruction series were provided. One or more dose reduction techniques were used (e.g., Automated exposure control, adjustment of the mA and/or kV according to patient size, use of iterative reconstruction technique. RADIATION DOSE SUMMARY: CTDlvol: 16.19 mGy DLP: 2654.11 mGycm COMPARISON: None. FINDINGS: CT head: Brain: Normal CSF Spaces: Normal Sinuses/Mastoids: Clear at visualized levels Bones: No acute bony abnormalities. Soft tissues: Left frontal scalp hematoma. CT cervical spine: Bones: No acute bony abnormalities. Disc levels: Degenerate changes, predominantly at C4-C5 where there is disc space narrowing, uncovertebral hypertrophy, severe bilateral foramina stenosis and moderate canal stenosis. Left C5-C6 facet joint arthropathy with corresponding severe foramina stenosis. Alignment: Retrolisthesis C4 on C5 by [address]/Spine Cervical without Contras IMPRESSION: No acute intracranial abnormalities. No acute injury to the cervical spine. Reading Location: [id number]
--- NOTE | 2025-04-01 06:35 | CT_ITS ---
PROCEDURE: ABDOMEN/PELVIS W IV CONT ONLY 04/01/2025 REASON FOR EXAM: FALL DOWN STAIRS TECHNIQUE: Procedure Code: CTABDPELIV Modality: CT Procedure: ABDOMEN/PELVIS W IV CONT ONLY Coronal and Sagittal reconstruction series were provided. CONTRAST: Isovue 370 VOLUME: 80 mL One or more dose reduction techniques were used (e.g., Automated exposure control, adjustment of the mA and/or kV according to patient size, use of iterative reconstruction technique. RADIATION DOSE SUMMARY: CTDlvol: 16.19 mGy DLP: 2654.11 mGycm COMPARISON: None. FINDINGS: Lung bases: Clear. Liver: Unremarkable. Gallbladder: Unremarkable. No biliary dilation. Spleen: Unremarkable. Pancreas: Unremarkable. Adrenals: Unremarkable. Kidneys: Bilateral kidney stones with the largest measures 7 mm at the lower pole of the right kidney. No hydronephrosis. Bladder: Decompressed by Rivera catheter but otherwise unremarkable. Reproductive Organs: Unremarkable. Bowel: No bowel wall thickening. No bowel obstruction. Appendix: Normal. Lymph nodes: No lymphadenopathy. Vasculature: No aneurysm. Atherosclerotic calcifications. Peritoneum / Retroperitoneum: No free air or free fluid. Bones: No acute bony abnormalities. CT/Abdomen/Pelvis W IV Cont ONLY IMPRESSION: No acute abdominopelvic injuries. Bilateral kidney stones with the largest measures 7 mm at the lower pole of the right kidney. No hydronephrosis Reading Location: [facility]
--- NOTE | 2025-04-01 06:35 | CT_ITS ---
PROCEDURE: BRAIN/HEAD WITHOUT CONTRAST; SPINE CERVICAL WITHOUT CONTRAS 04/01/2025 REASON FOR EXAM: FALL DOWN STAIRS TECHNIQUE: Procedure Code: CTBR; CTSPC Modality: CT Procedure: BRAIN/HEAD WITHOUT CONTRAST; SPINE CERVICAL WITHOUT CONTRAS Coronal and Sagittal reconstruction series were provided. One or more dose reduction techniques were used (e.g., Automated exposure control, adjustment of the mA and/or kV according to patient size, use of iterative reconstruction technique. RADIATION DOSE SUMMARY: CTDlvol: 16.19 mGy DLP: 2654.11 mGycm COMPARISON: None. FINDINGS: CT head: Brain: Normal CSF Spaces: Normal Sinuses/Mastoids: Clear at visualized levels Bones: No acute bony abnormalities. Soft tissues: Left frontal scalp hematoma. CT cervical spine: Bones: No acute bony abnormalities. Disc levels: Degenerate changes, predominantly at C4-C5 where there is disc space narrowing, uncovertebral hypertrophy, severe bilateral foramina stenosis and moderate canal stenosis. Left C5-C6 facet joint arthropathy with corresponding severe foramina stenosis. Alignment: Retrolisthesis C4 on C5 by [address]/Brain/Head without Contrast IMPRESSION: No acute intracranial abnormalities. No acute injury to the cervical spine. Reading Location: [id number]
[2025-04-01 06:37] LABS: Hematocrit 43.6 % (40-54); Hemoglobin 14.3 g/dL (13.0-16.5); Immature Granulocytes Count 0.070 X10^3/uL (0.0-0.0); Mean Corp Hgb Conc 32.8 g/dL (32-36); Mean Corpuscular Volume 90.1 fL (80-94); Mean Platelet Vol. 9.1 fl (6.2-12.0); NRBC Flagged by Analyzer 0 % (0-5); Platelet Count 250 K/mm3 (150-450); RBC Distribution Width CV 12.9 % (11.6-14.6); RBC Distribution Width SD 42.5 fl (35.1-43.9); Red Blood Count 4.84 M/mm3 (4.6-6.2); White Blood Count 5.7 K/mm3 (4.4-11.0)
[2025-04-01 06:38] LABS: Mucous, Urine 0 SEEN /hpf (<or=2+); Red Blood Cells-Urine 0 SEEN /hpf (0-5); Squamous Epithelial Cells - UA 0 SEEN /hpf (0-5)
[2025-04-01 06:44] LABS: Color, Urine Yellow (Yellow); Glucose, Dipstick Normal (Normal); Ketone-Dipstick Negative (Negative); Leukocyte Esterase-Dipstick Negative /ul (Negative); Nitrite-Dipstick Negative (Negative); Occult Blood-Urine 10 /ul (Negative); Protein-Dipstick 15 mg/dl (Negative); Specific Gravity, Urine 1.025 (1.002-1.030); Urine Bilirubin Dipstick Negative (Negative)
--- OUTSIDE RECORDS SUMMARY | 2025-04-01 06:47 | XMS RPT_ITS | CCD ---
Author Organization [facility] Care Team Providers Care Occupational Therapy Department Chair Name Role Phone Yrn Holland MD Primary Care Provider ROSALVA PARADA Attending Unavailable ROSALVA PARADA Referring Unavailable URIEL CHANG Admitting Unavailable ROSALVA PARADA Consulting Unavailable PHYSICIANS, [facility] Consulting Unav Yrn Loyd MD Primary Care Provider Yrn Holland MD Primary Care Provider Chriss APPLICATION COUNSELOR.Ned HOOVER Unavailable Felecia Quiroz PA-C Unavailable Yrn Holland MD Primary Care Provider Chriss APPLICATION COUNSELOR.Ned HOOVER Unavailable Felecia Quiroz PA-C Unavailable [phone] Mahesh Najera Attending Unavailable Yrn Holland Primary Care Unavailable Mahesh Najera Referring Unavailable Yrn Holland Primary Care Unavailable Mahesh Najera Referring Unavailable Mahesh Najera Attending Unavailable NED MUNOZ Attending Unavailable MATTEO HOLLANDREY A Primary Care Unavailable YRN HOLLAND Attending Unavailable YRN HOLLAND A Primary Care Unavailable YRN HOLLAND A Referring Unavailable MATTEO HOLLANDREY A Primary Care Unavailable FELECIA QUIROZ Attending Unavailable YRN HOLLAND A Primary Care Unavailable YRN HOLLAND Attending Unavailable GREG, YRN A Primary Care Unavailable GREG, YRN A Referring Unavailable GREG, YRN A Primary Care Unavailable GREG, YRN A Referring Unavailable GREG, YRN A Primary Care Unavailable GREG, YRN A Referring Unavailable GREG, YRN A Primary Care Unavailable Medications Current Medications Medication Drug Class(es) Dates Sig (Normalized) Sig (Original) atorvastatin 10 mg oral tablet (17 sources) HMG-CoA Reductase Inhibitor Start: 10-12-2024 take 1 tablet by mouth once daily atorvastatin (LIPITOR) 10 mg tablet Take 1 tablet by mouth once daily. 30 tablet 5 10/12/2024 Active Start: 05-11-2024 take 1 tablet by roberto th once daily atorvastatin (LIPITOR) 10 mg tablet Take 1 tablet by mouth once daily. 30 tablet 5 05/11/2024 Active enteric contrast (will be provided with radiology test) (1 source) Start: 02-05-2025 End: 02-06-2025 enteric contrast (will be provided with radiology test) Indications: Periumbilical abdominal pain , Lower abdominal pain For CT ABD W IVCON order Administer, As Directed One Time Only, via Oral, Rectal, both Oral and Rectal, Enteric Tube, Stoma or Indwelling Catheter, Enteric Contrast as designated per enteric contrast guidelines 1 each 02/05/2025 02/06/2025 Active iv contrast (will be provided with radiology test) (1 source) Start: 02-05-2025 End: 02-06-2025 iv contrast (will be provided with radiology test) Indications: Periumbilical abdominal pain , Lower abdominal pain CT ABD W -Inject, intravenously, once for 1 dose.No IV access, insert saline lock prior to the beginning of sedation, infusion, injection of imaging exam. Discontinue saline lock post exam. If Pt. has a central line or IVAD, may access for administration according to line specific nursing protocol. Once exam is complete flush line and de-access according to line specific nursing protocol in the CT contrast administration guidelines link. 1 each 02/05/2025 02/06/2025 Active LORazepam 0.5 mg oral tablet (3 sources) Benzodiazepine Start: 09-16-2021 End: 12-15-2021 take 0.25 mg by mouth every eight hours as needed LORazepam (ATIVAN) 0.5 mg Take 0.5 tablets by mouth three times daily as needed (anxiety) for up to 90 days. Per PsychiatryDr Snavely 0 09/16/2021 12/15/2021 Active Comment on above: Take 0.5 tablets by mouth three times daily as needed (anxiety) for up to 90 days. Per PsychiatryDr Snavely mirtazapine 45 mg oral tablet (20 sources) Start: 04-19-2024 take 1 tablet by mouth once daily at bedtime mirtazapine (REMERON) 45 mg tablet Take 1 tablet by mouth daily at bedtime. Per Psych, Dr. Barone 04/19/2024 Active Start: 10-05-2021 End: 04-19-2024 take 1 tablet by mouth once daily at bedtime mirtazapine (REMERON) 15 mg tablet Take 1 tablet by mouth daily at bedtime. Per Psych, Dr. Barone 10/05/2021 04/19/2024 Discontinued Comment on above: Take 1 tablet by roberto th daily at bedtime. Per Psych, Dr. Barone uz-aai-izhnl acid-lutein (CENTRUM SILVER) 400-250 mcg chew (20 sources) Start: 08-02-2020 take 1 tablet by mouth once daily fc-zfh-zohmq acid-lutein (CENTRUM SILVER) 400-250 mcg chew Take 1 tablet by mouth once daily. 08/02/2020 Active Start: 08-02-2020 take 1 tablet by roberto th once daily cc-rhc-ysuol acid-lutein (CENTRUM SILVER) 400-250 mcg chew Take 1 tablet by mouth once daily. 0 08/02/2020 Active Comment on above: Take 1 tablet by roberto th once daily. perflutren lipid microspheres 1.3 mL in NaCl (PF) 0.9% 10 mL injection (DEFINITY) (16 sources) Start: 3 End: 4 perflutren lipid microspheres 1.3 mL in NaCl (PF) 0.9% 10 mL injection (DEFINITY) 125 ml sodium chloride 9 mg/ml prefilled syringe (16 sources) Start: 3 End: 4 sodium chloride 0.9 % (flush) 10 mL (BD POSIFLUSH) tamsulosin hydrochloride 0.4 mg oral capsule (20 sources) alpha-Adrenergic Blanca Start: 5 take 1 capsule by mouth once tamsulosin (FLOMAX) 0.4 mg Take 1 capsule by mouth once daily. Per Urology: Dr. Jorge 90 capsule 07/25/2024 Active Comment on above: Take 0.4 mg by mouth once daily. Turmeric extract (20 sources) take 1000 mg by mouth once daily TURMERIC ORAL Take by mouth. Taking 1000 mg daily Active take 1000 mg by mouth once daily TURMERIC ORAL Take by mouth. Taking 1000 mg daily 0 Active Comment on above: Take by mouth. Takin g 1000 mg daily 24 hr venlafaxine 150 mg extended release oral capsule (20 sources) Serotonin and Norepinephrine Reuptake Inhibitor Start: 04-19-20 take 2 capsules by mouth once daily at bedtime venlafaxine ER (EFFEXOR XR) 150 mg 24 hr capsule Take 2 capsules by mouth daily at bedtime. Per Psych, Dr. Barone 04/19/2024 Active Start: 06-24-2022 End: 04-19-2024 venlafaxine ER (EFFEXOR XR) 75 mg 24 hr capsule Take 2 capsules by mouth twice daily. Per PsychDr. Barone 06/24/2022 04/19/2024 Discontinued (Adjust Sig - Block E-Cancel) Start: 10-05-2021 take 1 capsule by mo uth every hour venlafaxine ER (EFFEXOR XR) 75 mg 24 hr capsule Take 1 capsule by mouth once daily. Per Psych, Dr. Barone 0 10/05/2021 Active Comment on above: Take 1 capsule by mo uth once daily. Per Psych, Dr. Barone Take 2 capsules by m outh twice daily. Per Psych, Dr. Barone Completed/Discontinued Medications Medication Drug Class(es) Dates Sig (Normalized) Sig (Original) ARIPiprazole 5 mg oral tablet (2 sources) Atypical Antipsychotic Start: 09-16-2021 End: 10-05-2021 take 1.5 tablets by mouth once ARIPiprazole (ABILIFY) 5 mg tablet Take 1.5 tablets by mouth once daily. Per Psychiatry, Lizabeth Baumann 0 09/16/2021 10/05/2021 Discontinued (Discontinued by another Health Care Provider) Comment on above: Take 1.5 tablets by mouth once daily. Per Psychiatry, Lizabeth Baumann 24 hr buPROPion hydrochloride 300 mg extended release oral tablet (20 sources) Aminoketone Start: 06-12-2022 End: 03-31-2023 take 1 tablet by mouth once daily buPROPion XL (WELLBUTRIN XL) 300 mg 24 hr tablet Take 300 mg by mouth once daily. 0 06/12/2022 03/31/2023 Discontinued Start: 05-22-2022 take 1 tablet by roberto th once daily buPROPion XL (WELLBUTRIN XL) 150 mg 24 hr tablet Take 150 mg by mouth once daily. 05/22/2022 Active Comment on above: Take 300 mg by mouth once daily. Take 150 mg by mouth once daily. busPIRone hydrochloride 15 mg oral tablet (5 sources) Start: End: take 0.5 tablet by mouth twice daily, then take 1 tablet by mouth twice daily busPIRone (BUSPAR) 15 mg tablet Take 1/2 a tab by mouth twice a day for 2 weeks than one twice a day. Starting Wednesday08/04/2021 60 tablet 5 07/30/2021 03/27/2022 Discontinued (Discontinued by another Health Care Provider) Comment on above: Take 1/2 a tab by mo [facility] twice a day for 2 weeks than one twice a day. Starting Wednesday08/04/2021 Cinnamon Preparation (5 sources) Non-Standardized Food Allergenic Extract End: CINNAMON Taking 1/4 teaspoon daily 0 03/27/2022 Discontinued CINNAMON Taking 1/4 teaspoon daily 0 Active Comment on above: Taking 1/4 teaspoon daily DULoxetine 60 mg delayed release oral capsule (1 source) Serotonin and Norepinephrine Reuptake Inhibitor Start: 07-31-19 End: 09-17-19 take 1 capsule by mouth twice daily DULoxetine (CYMBALTA) 60 mg capsule Indications: Major depressive disorder, recurrent episode, severe with anxious distress (HCC) Take 1 capsule by mouth twice daily. 60 capsule 5 07/30/2021 09/16/2021 Discontinued (Discontinued by another Health Care Provider) Comment on above: Take 1 capsule by mo [facility] twice daily. escitalopram 10 mg oral tablet (2 sources) Serotonin Reuptake Inhibitor Start: 09-17-19 End: 10-06-19 take 1 tablet by mouth once escitalopram oxalate (LEXAPRO) 10 mg tablet Take 1 tablet by mouth once daily. Per Psychiatry, Lizabeth Baumann 0 09/16/2021 10/05/2021 Discontinued (Discontinued by another Health Care Provider) Comment on above: Take 1 tablet by roberto once daily. Per Psychiatry, Lizabeth Baumann glucosamine/msm/lizzy droitin A (GLUCOSAMINE-CHONDR- MSM ORAL) (5 sources) End: 03-27-20 glucosamine/msm/lizzy droitin A (GLUCOSAMINE-CHONDR- MSM ORAL) Take by mouth twice daily. 0 03/27/2022 Discontinued glucosamine/msm/ chondroitin A ([id number]-UYA ORAL) Take by mouth twice daily. 0 Active Comment on above: Take by mouth twice daily. lactobacillus acidophilus 460 mg oral capsule (4 sources) Start: 05-19-20 End: 02-03-20 take 1 capsule by mouth once daily Lactobacillus acidophilus (FLORAJEN ACIDOPHILUS) 20 billion cell cap Take 1 capsule by mouth once daily. 30 capsule 0 05/19/2022 02/02/2023 Discontinued Comment on above: Take 1 capsule by [facility] once daily. OLANZapine 5 mg oral tablet (20 sources) Atypical Antipsychotic Start: 03-31-20 End: 02-06-20 take 2 tablets by mouth once daily at bedtime OLANZapine (ZYPREXA) 5 mg tablet Take 2 tablets by mouth daily at bedtime. Per Psych, Dr. Barone 03/31/2023 02/05/2025 Discontinued Start: 10-05-2021 End: 03-31-2023 take 1 tablet by mouth once daily at bedtime OLANZapine (ZYPREXA) 5 mg tablet Take 1 tablet by mouth daily at bedtime. Per PsychDr. Barone 0 10/05/2021 03/31/2023 Discontinued (Adjust Sig - Block E-Cancel) Comment on above: Take 1 tablet by [facility] daily at bedtime. Per Psych, Dr. Barone Take 2 tablets by [facility] daily at bedtime. Per Psych, Dr. Barone traZODone hydrochloride 50 mg oral tablet (6 sources) Serotonin Reuptake Inhibitor Start: 2 End: 2 take 2 tablets by mouth once daily at bedtime traZODone (DESYREL) 50 mg tablet Take 2 tablets by mouth daily at bedtime. Take 30-45 minutes before bedtime. Per Psychiatry, Lizabeth Baumann 60 tablet 5 09/16/2021 03/27/2022 Discontinued (Discontinued by another Health Care Provider) Comment on above: Take 2 tablets by [facility] daily at bedtime. Take 30-45 minutes before bedtime. Per Psychiatry, Lizabeth Baumann Take 2 tablets by myla rodrigues daily at bedtime. Take 30-45 minutes before bedtime. Problems Active Problems Problem Classification Problem Date Documented Da te Episodic/Chronic Abdominal pain (8 sources) Unspecified abdominal pain; Translations: [Periumbilical pain] Onset: 05-09-2022 Episodic Anxiety disorders (20 sources) Severe anxiety (panic); Translations: [Anxiety disorder, unspecified] Onset: 09-16-2021 Chronic Calculus of urinary tract (3 sources) Calculus of kidney; Translations: [Calculus of kidney] Onset: 05-09-2022 Episodic Delirium, dementia, and amnestic and other cognitive disorders (2 sources) Dementia; Translations: [Unspecified dementia without behavioral disturbance] 02-02-2023 Chronic Disorders of lipid metabolism (20 sources) Dyslipidemia; Translations: [Hyperlipidemia, unspecified] Onset: 02-27-2021 02-27-2021 Chronic Hyperplasia of prostate (20 sources) Benign prostatic hyperplasia; Translations: [Benign prostatic hyperplasia without lower urinary tract symptoms] Onset: 01-31-2007 05-14-2016 Chronic Mood disorders (20 sources) Severe recurrent major depression; Translations: [Major depressive disorder, recurrent severe without psychotic features] Onset: 07-30-2021 Chronic Occlusion or stenosis of precerebral arteries (20 sources) Bilateral stenosis of carotid arteries; Translations: [Occlusion and stenosis of bilateral carotid arteries] Onset: 07-02-2022 Chronic Osteoarthritis (20 sources) Osteoarthritis of finger joint of right hand; Translations: [Primary osteoarthritis, right hand] Onset: 01-28-2017 01-28-2017 Chronic Other circulatory disease (2 sources) Elevated blood-pressure reading without diagnosis of hypertension; Translations: [Elevated blood-pressure reading, without diagnosis of hypertension] 04-19-2024 Episodic Other connective tissue disease (1 source) Shoulder girdle weakness; Translations: [Other symptoms and signs involving the musculoskeletal system] 11-20-2024 Episodic Other diseases of bladder and urethra (20 sources) Overactive bladder; Translations: [Other neuromuscular dysfunction of bladder] Onset: 01-31-2007 05-14-2016 Chronic Other eye disorders (11 sources) Nystagmus present; Translations: [Unspecified nystagmus] Onset: 11-20-2024 11-20-2024 Chronic Other eye disorders (1 source) Unspecified nystagmus; Translations: [Nystagmus] Onset: 11-20-2024 Chronic Other gastrointestinal disorders (2 sources) Diarrhea; Translations: [Diarrhea, unspecified] Episodic Other gastrointestinal disorders (1 source) Esophageal dysphagia; Translations: [Other dysphagia] 02-02-2023 Episodic Other liver diseases (2 sources) Abnormal levels of other serum enzymes; Translations: [Abnormal levels of other serum enzymes] Onset: 05-09-2022 Episodic Other liver diseases (1 source) Alkaline phosphatase raised; Translations: [Abnormal levels of other serum enzymes] Episodic Residual codes; unclassified (2 sources) Memory impairment; Translations: [Other amnesia] 02-02-2023 Episodic Residual codes; unclassified (5 sources) Transient alteration of awareness; Translations: [Transient alteration of awareness] 11-20-2024 Episodic Transient cerebral ischemia (6 sources) Transient global amnesia; Translations: [Transient global amnesia] Onset: 11-20-2024 11-20-2024 Chronic Past or Other Problems Problem Classification Problem Date Documented Da te Episodic/Chronic Administrative/social admission (20 sources) Advance directive discussed with patient; Translations: [Other specified counseling] Onset: 03-27-2022 Episodic Diabetes mellitus without complication (20 sources) High hemoglobin A1c level; Translations: [Other abnormal glucose] Onset: 02-16-2018 02-16-2018 Episodic Genitourinary symptoms and ill-defined conditions (20 sources) Microscopic hematuria; Translations: [Other microscopic hematuria] Onset: 11-19-2008 05-14-2016 Episodic Other aftercare (1 source) 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 operator (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; Translations: [Medication management] Onset: 03-16-2022 Episodic Other connective tissue disease (1 source) Other symptoms and signs involving the musculoskeletal system; Translations: [Shoulder weakness] Onset: 11-20-2024 Episodic Other gastrointestinal disorders (20 sources) Oropharyngeal dysphagia; Translations: [Dysphagia, oropharyngeal phase] Onset: 03-10-2023 03-10-2023 Episodic Other male genital disorders (20 sources) Disorder of prostate; Translations: [Disorder of prostate, unspecified] Onset: 05-07-2016 05-07-2016 Episodic Other male genital disorders (20 sources) Disorder of male genital organ; Translations: [Hydrocele, unspecified] Onset: 02-15-2018 02-15-2018 Episodic Other screening for suspected conditions (not mental disorders or infectious disease) (20 sources) Patient encounter status; Translations: [Encounter for screening for malignant neoplasm of colon] Onset: 01-28-2017 01-28-2017 Episodic Other skin disorders (20 sources) Actinic keratosis; Translations: [Actinic keratosis] Onset: 01-28-2017 01-28-2017 Episodic Residual codes; unclassified (20 sources) Active living will ; Translations: [Other specified health status] Onset: 03-27-2022 Episodic Residual codes; unclassified (1 source) Transient alteration of awareness; Translations: [Transient alteration of awareness] Onset: 11-20-2024 Episodic Results Test Name Value Interpretation Reference Range Facility [facility] 03-26-2025 CNPN Telephone (FAMPWS) CRISSY RICHTER ([id number]) 1955 M Date Time Provider Department 03/26/25 YRN HOLLAND During your visit today, we recorded the following information about you: Evelyn Lowery RN 03/26/2025 10:05 AM Signed reports pt has had anxiety/depression for years and sees Dr. Barone outside of [facility]. Dr. Barone prescribes pt medication and it helps. Asking pcp if there is someone in [place] you could refer patient to that he could talk to about his anxieties. Reports they have tried the counseling center and they could not help him. Reports patient is having memory troubles and this causes him to feel very anxious. Asking if pcp thinks patient should see the geriatric specialist at the clinic for evaluation of alzheimer's. Pt has appt scheduled with pcp next week. Yrn Holland MD 03/26/2025 4:06 PM Signed Patient should be seen in office for an appt to eval memory issues and get a MMSE and appropriate labs before sending to Geriatrics. In regards to seeing a counselor have this discussed this with Dr. Barone how should be able to recommend an appropriate person. Daphnie Best MA 03/26/2025 4:21 PM Signed Talked to PCP, pt has appt on 04/04/25 states that we can touch base during his Med Wellness, but will have him f/u to discuss further with lab review. Call to pt's and notified her of this, she verbalized understanding and will be discussed further at upcoming visits. Asked about Dr. Barone giving recommendations and she said she's not impressed with Dr. Barone other than the Rx's seem to be okay and are "strong". Wanted PCP's opinion. Advised her this will be discussed further at either upcoming appt. Daphnie Best MA Allergies As of Date: 03/26/2025 (No Known Allergies) Date Reviewed: 02/05/2025 Reviewed by: Monie Harvey MA - Fully Assessed Reason for Visit: Patient Question [6207] Prescriptions as of 03/26/2025 - atorvastatin (LIPITOR) 10 mg tablet Take 1 tablet by mouth once daily. - tamsulosin (FLOMAX) 0.4 mg Take 1 capsule by mouth once daily. Per Urology: Dr. Jorge - venlafaxine ER (EFFEXOR XR) 150 mg 24 hr capsule Take 2 capsules by mouth daily at bedtime. Per Psych, Dr. Barone - mirtazapine (REMERON) 45 mg tablet Take 1 tablet by mouth daily at bedtime. Per Psych, Dr. Barone - buPROPion XL (WELLBUTRIN XL) 150 mg 24 hr tablet Take 150 mg by mouth once daily. - TURMERIC ORAL Take by mouth. Taking 1000 mg daily - ox-vll-tmjtl acid-lutein (CENTRUM SILVER) 400-250 mcg chew Take 1 tablet by mouth once daily. 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] 01/31/2007 Benign non-nodular prostatic hyperplasia withou*01/31/2007 Microscopic hematuria [R31.29] 11/19/2008 Disorder of prostate [N42.9] 05/07/2016 Osteoarthritis of finger of right hand [M19.041]01/28/2017 AK (actinic keratosis) [L57.0] 01/28/2017 Screening for colon cancer [Z12.11] 01/28/2017 Hydrocele, right [N43.3] 02/15/2018 Elevated hemoglobin A1c [R73.09] 02/16/2018 Encounter for Medicare annual wellness exam [Z0*02/26/2021 Dyslipidemia [E78.5] 02/27/2021 Major depressive disorder, recurrent episode, s*07/30/2021 Severe anxiety [F41.9] 09/16/2021 Medication management [Z79.899] 03/16/[address] [Z78.9] 03/27/2022 Advance directive discussed with patient [Z71.8*03/27/2022 Bilateral carotid artery stenosis [I65.23] 07/02/2022 Oropharyngeal dysphagia [R13.12] 03/10/2023 Nystagmus [H55.00] 11/20/2024 Encounter Status:Closed by DAPHNIE BEST on 03/26/25 Normal [facility] Abdomen/Pelvis without Conto n 03-21-2025 Abdomen/Pelvis without Cont [facility] Imaging Services [address] [place] [address] [id number] Abdomen/Pelvis without Cont MR#: [id number] Acct: [id number] Name: CRISSY RIHCTER Rep #: [id number] : 1955 M 69 From: Trevor Burleson MD PCP: Dr. Yrn Holland MD Status: REG CLI Study: Abdomen/Pelvis without Cont Date of Exam: 02/22 02/15 Exam# [id number] Ordering Dr: Mahesh Najera MD PROCEDURE: CT ABDOMEN/PELVIS WITHOUT CONT 03/21/2025 REASON FOR EXAM: KIDNEY STONE PROTOCOL TECHNIQUE: Procedure Code: CTABDPEL Modality: CT Procedure: ABDOMEN/PELVIS WITHOUT CONT Noncontrast technique limits evaluation of the abdominal and pelvic viscera. Coronal and Sagittal reconstruction series were provided. One or more dose reduction techniques were used (e.g., Automated exposure control, adjustment of the mA and/or kV according to patient size, use of iterative reconstruction technique). RADIATION DOSE SUMMARY: CTDlvol: 6.19 mGy DLP: 315.25 mGycm COMPARISON: None. FINDINGS: Lung bases: Clear. Liver: Unremarkable. Gallbladder: Unremarkable. Spleen: Unremarkable. Pancreas: Unremarkable. Adrenals: Unremarkable. Kidneys: Several bilateral small subcentimeter nonobstructive renal stones, the largest in the lower pole of the right kidney measuring 5 mm. No ureteral calculi or hydroureteronephrosis on either side. No perinephric edema; nothing to suggest a recently passed stone. Bladder: Unremarkable. No stone within the bladder. Reproductive Organs: Unremarkable, nonenlarged prostate. Bowel: No evidence of obstruction or active inflammatory process. Appendix is not well-visualized but there are no pericecal inflammatory changes. Moderate colonic stool burden. Lymph nodes: No enlarged abdominopelvic lymph nodes. Vasculature: Normal caliber abdominal aorta. Mild atherosclerotic disease. Peritoneum / Retroperitoneum: No ascites or free air. Bones: Minimal degenerative changes of the spine and bilateral hips. CT/Abdomen/Pelvis without Cont IMPRESSION: No acute intra-abdominal abnormality. Several bilateral subcentimeter nonobstructive renal stones. No ureteral calculi or hydroureteronephrosis on either side. No perinephric edema. Reading Location: [id number] CC: Dr. Yrn Holland MD; Dr. Mahesh Najera MD Clerk Typist: Signed [facility] 02-23-2025 [facility] Telephone ([employer]) CRISSY RICHTER ([id number]) 1955 M Date Time Provider Department 02/23/25 YRN HOLLAND During your visit today, we recorded the following information about you: Rupa Spap RN 02/23/2025 9:26 AM Signed Patient's spouse Tiffanie calling in with pt speaking in background. Patient states he was prescribed a short-term medication by his Urologist, Dr. Najera recently and he has completed the medication and his sx's are returning. Pt reports moderate lower abd pain just below belly button. No nausea, vomiting, diarrhea. Denies increased or decreased urination, reports having a good flow "most of the time". No other urine sx's stated. This nurse advise patient contact Dr. Najera's office now, and if unable to get advise to please call PCP office back. Also advised and patient to proceed to nearest ER for any severe sx's. Rupa Sapp RN Allergies As of Date: 02/23/2025 (No Known Allergies) Date Reviewed: 02/05/2025 Reviewed by: Monie Harvey MA - Fully Assessed Reason for Visit: Patient Update [1234] Prescriptions as of 02/23/2025 - atorvastatin (LIPITOR) 10 mg tablet Take 1 tablet by mouth once daily. - tamsulosin (FLOMAX) 0.4 mg Take 1 capsule by mouth once daily. Per Urology: Dr. Jorge - venlafaxine ER (EFFEXOR XR) 150 mg 24 hr capsule Take 2 capsules by mouth daily at bedtime. Per Psych, Dr. Barone - mirtazapine (REMERON) 45 mg tablet Take 1 tablet by mouth daily at bedtime. Per Psych, Dr. Barone - buPROPion XL (WELLBUTRIN XL) 150 mg 24 hr tablet Take 150 mg by mouth once daily. - TURMERIC ORAL Take by mouth. Taking 1000 mg daily - tc-jjl-ytsse acid-lutein (CENTRUM SILVER) 400-250 mcg chew Take 1 tablet by mouth once daily. 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] 01/31/2007 Benign non-nodular prostatic hyperplasia withou*01/31/2007 Microscopic hematuria [R31.29] 11/19/2008 Disorder of prostate [N42.9] 05/07/2016 Osteoarthritis of finger of right hand [M19.041]01/28/2017 AK (actinic keratosis) [L57.0] 01/28/2017 Screening for colon cancer [Z12.11] 01/28/2017 Hydrocele, right [N43.3] 02/15/2018 Elevated hemoglobin A1c [R73.09] 02/16/2018 Encounter for Medicare annual wellness exam [Z0*02/26/2021 Dyslipidemia [E78.5] 02/27/2021 Major depressive disorder, recurrent episode, s*07/30/2021 Severe anxiety [F41.9] 09/16/2021 Medication management [Z79.899] 03/16/[address] [Z78.9] 03/27/2022 Advance directive discussed with patient [Z71.8*03/27/2022 Bilateral carotid artery stenosis [I65.23] 07/02/2022 Oropharyngeal dysphagia [R13.12] 03/10/2023 Nystagmus [H55.00] 11/20/2024 Encounter Status:Closed by RUPA SAPP on 02/23/25 [facility] CNOVon 02-05-2025 CNOV Office Visit (FAMPWS ) ROBRECRISSY ([id number]) 1955 M Date Time Provider Department 02/05/25 1:40 PM NED MUNOZ During your visit today, we recorded the following information about you: Pulse Blood pressure Weight 90/minute 138/87 71 kg Ned Munoz APRN.[employer] SUPERVISOR 02/05/2025 2:03 PM Signed Chief Complaint Patient presents with: Abdominal Pain: Lower abdomen X1 week HPI Crissy Santos Rober is a 69 year old male who presents here today for Above Complaints.. Patient presents for lower abd pain just below belly button. Reports pain is constant,6/10. Pain is worse after he eats. Started 1 week ago. No nausea, vomiting, diarrhea. Also reports increased urination. Patient has follow up scheduled tomorrow with Urology. Past medical history, appointments, medications, allergies reviewed. Previous Medical History PAST MEDICAL HISTORY Diagnosis Date Advance directive discussed with patient 03/27/2022 Discussed 03/2022: patient to bring in copies AK (actinic keratosis) 01/28/2017 tearted with cryo 01/28/2017 Benign non-nodular prostatic hyperplasia without lower urinary tract symptoms 01/31/[address] White yearly and gets PSA's and prostate exam. 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 Oropharyngeal dysphagia 03/10/2023 swallowing exam 02/2023: [facility]: mild-Mod Osteoarthritis of finger of right hand 01/28/2017 PIP Severe anxiety 09/16/2021 Seeing Psychiatry, Lizabeth Baumann Well adult exam 05/14/2016 Can have one per year, last done 02/23/2019 Previous Surgical History PAST SURGICAL HISTORY Procedure Laterality Date ARTHROSCOPY KNEE DIAGNOSTIC W/WO SYNOVIAL BX SPX 1999 Arthroscopy, knee Right x2 ARTHROSCOPY KNEE DIAGNOSTIC W/WO SYNOVIAL BX SPX 04/14/2006 left COLONOSCOPY 01/14/2018 Dr. Esteban, negative, recheck in 10 yrs COLONOSCOPY FLX DX W/COLLJ SPEC WHEN PFRMD 11/02/2008 repeat 10 yrs IMMUNOCHEMICAL FECAL OCCULT BLOOD TEST 02/03/2017 Negative Family History FAMILY HISTORY Problem Relation Age of Onset Cancer Mother pancreas, with mets to lungs, passed 05/2016 other (parkinson's disease) Father passed 2006 Patient Allergies ALLERGIES No Known Allergies Current Medications Current Outpatient Medications on File Prior to Visit Medication Sig atorvastatin (LIPITOR) 10 mg tablet Take 1 tablet by mouth once daily. tamsulosin (FLOMAX) 0.4 mg Take 1 capsule by mouth once daily. Per Urology: Dr. Jorge venlafaxine ER (EFFEXOR XR) 150 mg 24 hr capsule Take 2 capsules by mouth daily at bedtime. Per Psych, Dr. Barone mirtazapine (REMERON) 45 mg tablet Take 1 tablet by mouth daily at bedtime. Per Psych, Dr. Barone OLANZapine (ZYPREXA) 5 mg tablet Take 2 tablets by mouth daily at bedtime. Per Psych, Dr. Barone buPROPion XL (WELLBUTRIN XL) 150 mg 24 hr tablet Take 150 mg by mouth once daily. TURMERIC ORAL Take by mouth. Taking 1000 mg daily sc-rmi-ucbtz acid-lutein (CENTRUM SILVER) 400-250 mcg chew Take 1 tablet by mouth once daily. No current facility-administered medications on file prior to visit. Social History SOCIAL HISTORY[1] Review of Symptoms REVIEW OF SYSTEMS SEE HPI EXAM: BP 138/87 Pulse 90 Wt 71 kg (156 lb 8.4 oz) BMI 22.78 kg/m? General Appearance: Well appearing, alert, in no acute distress, well-hydrated, well nourished. Abdomen: Negative findings: umbilicus normal, symmetric, no masses palpable, bowel sounds normal, and no bruits heard, Positive findings: tenderness moderate suprapubic. Health Maintenance List Advance Directive Discussion due on 05/24/2024 Medicare Advantage Annual Wellness Visit due on 05/24/2024 Influenza Vaccine(1) due on 01/22/2025 Diabetes Screening due on 11/21/2027 Colorectal Cancer Screening due on 01/15/2028 Lipid Screening due on 04/19/2029 RSV Vaccine(1 - 1-dose 75+ series) due on 2030 DTaP,Tdap,Td Vaccine(4 - Td or Tdap) due on 07/26/2033 Shingrix Vaccine Completed Pneumococcal Vaccine: 50+ Completed Hepatitis C Screening Discontinued Data reviewed Latest Ref Rng 02/05/2025 GLUCOSE UA (POCT) Negative mg/dL Negative (more content not included)... Normal [facility] UA DIP, URINE (POC)on 2024 BILIRUBIN UA (POCT) Negative Negative [facility] CLARITY UA (POCT) Clear [facility] COLOR UA (POCT) Yellow [facility] GLUCOSE UA (POCT) Negative Negative mg/dL [facility] Hemoglobin Ql (U) Negative Negative [facility] KETONE UA (POCT) Negative Negative mg/dL [facility] LEUKOCYTES UA (POCT) Negative [facility] NITRITE UA (POCT) Negative Negative [facility] PH UA (POCT) 6.0 4.5 - 8.0 [facility] Protein Ql (U) Negative Negative mg/dL [facility] SPECIFIC GRAVITY UA (POCT) >=1.030 1.005 - 1.030 [facility] UROBILINOGEN UA (POCT) 0.2 Elle l E.U./dL [facility] Location:[facility], [address] [place] [address], [place], [place], [id number] [place] [address] POINT OF CARE [facility] 12-21-2024 [facility] CRISSY RICHTER ([id number]) 1955 M Date Time Provider Department 12/21/24 [facility] During your visit today, we recorded the following information about you: Felecia Quiroz PA-C 12/21/2024 11:24 AM Signed Carotid artery US is stable. Lisa Robin LPN 12/21/2024 11:31 AM Signed Left message for pt to contact office. TAMIE Romero Rilee, MA 12/22/2024 2:06 PM Signed Notified pt office attempted to reach him by phone without success and message was left, but no call back received. Notified pt of results below from Provider. If questions to contact office. Will leave encounter open to make sure message with results is viewed by pt. If viewed will close. If not, will attempt to call pt again. SHILPA Alfred Rilee, MA 12/25/2024 10:28 AM Signed Mychart message with results viewed by patient on 12/22/24 at 2:57 pm. SHILPA Alfred Stephanie, RN 12/25/2024 12:15 PM Signed Patient's notified of results. Patient's verbalizes understanding. states that patient has had more episodes of leaning and almost falling. reports that PCP told her that if this happens again that patient should go to ER. states that they are currently in [place] and are flying home today. Patient did not want to go to an ER in [place]. Advised again that if patient continues to have episodes that he needs to go to ER. Voiced understanding. Jayleen Mckeon RN Allergies As of Date: 12/21/2024 (No Known Allergies) Date Reviewed: 11/20/2024 Reviewed by: Yrn Holland MD - Fully Assessed Reason for Visit: Results [95] Primary Visit Diagnosis:Bilateral carotid artery stenosis [I65.23] Prescriptions as of 12/25/2024 - atorvastatin (LIPITOR) 10 mg tablet Take 1 tablet by mouth once daily. - tamsulosin (FLOMAX) 0.4 mg Take 1 capsule by mouth once daily. Per Urology: Dr. Jorge - venlafaxine ER (EFFEXOR XR) 150 mg 24 hr capsule Take 2 capsules by mouth daily at bedtime. Per Psych, Dr. Barone - mirtazapine (REMERON) 45 mg tablet Take 1 tablet by mouth daily at bedtime. Per Psych, Dr. Barone - OLANZapine (ZYPREXA) 5 mg tablet Take 2 tablets by mouth daily at bedtime. Per Psych, Dr. Barone - buPROPion XL (WELLBUTRIN XL) 150 mg 24 hr tablet Take 150 mg by mouth once daily. - TURMERIC ORAL Take by mouth. Taking 1000 mg daily - zf-gbc-tpbnb acid-lutein (CENTRUM SILVER) 400-250 mcg chew Take 1 tablet by mouth once daily. 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] 01/31/2007 Benign non-nodular prostatic hyperplasia withou*01/31/2007 Microscopic hematuria [R31.29] 11/19/2008 Disorder of prostate [N42.9] 05/07/2016 Osteoarthritis of finger of right hand [M19.041]01/28/2017 AK (actinic keratosis) [L57.0] 01/28/2017 Screening for colon cancer [Z12.11] 01/28/2017 Hydrocele, right [N43.3] 02/15/2018 Elevated hemoglobin A1c [R73.09] 02/16/2018 Encounter for Medicare annual wellness exam [Z0*02/26/2021 Dyslipidemia [E78.5] 02/27/2021 Major depressive disorder, recurrent episode, s*07/30/2021 Severe anxiety [F41.9] 09/16/2021 Medication management [Z79.899] 03/16/[address] [Z78.9] 03/27/2022 Advance directive discussed with patient [Z71.8*03/27/2022 Bilateral carotid artery stenosis [I65.23] 07/02/2022 Oropharyngeal dysphagia [R13.12] 03/10/2023 Nystagmus [H55.00] 11/20/2024 Encounter Status:Closed by DAPHNIE BEST on 12/25/24 Normal [facility] US CAROTID ARTERIES SHARYN VAS LABon 12-20-2024 US CAROTID ARTERIES [facility] LAB Non-Invasive Vascular Laboratory [facility] Carotid Duplex Bilateral/Complete Date of service/time: 12/20/2024 11:03:03 AM Name: MR. CRISSY RICHTER Date of : 1955 Age: 69 years Gender: M Clinical Indication Follow-up study on a patient with known carotid disease. TECHNIQUE -------- A carotid duplex ultrasound examination was performed, including grayscale imaging and color Doppler and spectral Doppler examination of the below mentioned arteries. FINDINGS -------- RIGHT SIDE Common carotid artery: Origin: PSV: 96 cm/s. EDV: 13 cm/s. Proximal: PSV: 101 cm/s. EDV: 20 cm/s. Mid: PSV: 96 cm/s. EDV: 22 cm/s. Distal: PSV: 71 cm/s. EDV: 16 cm/s. Internal carotid artery: Origin: PSV: 43 cm/s. EDV: 11 cm/s. Proximal: PSV: 61 cm/s. EDV: 17 cm/s. Mid: PSV: 83 cm/s. EDV: 30 cm/s. Distal: PSV: 88 cm/s. EDV: 32 cm/s. Moderate heterogeneous plaque from origin to proximal. ICA/CCA Ratio: 0.9 External carotid artery: Proximal: PSV: 85 cm/s. EDV: 10 cm/s. Mild heterogeneous plaque at origin. Subclavian artery: Proximal: PSV: 80 cm/s. EDV: 0 cm/s. Innominate artery: PSV: 93 cm/s. EDV: 10 cm/s. Vertebral artery: PSV: 53 cm/s. EDV: 11 cm/s. LEFT SIDE Common carotid artery: Proximal: PSV: 123 cm/s. EDV: 29 cm/s. Mid: PSV: 138 cm/s. EDV: 31 cm/s. Distal: PSV: 113 cm/s. EDV: 26 cm/s. Internal carotid artery: Origin: PSV: 73 cm/s. EDV: 21 cm/s. Proximal: PSV: 54 cm/s. EDV: 18 cm/s. Mid: PSV: 81 cm/s. EDV: 31 cm/s. Distal: PSV: 75 cm/s. EDV: 29 cm/s. ICA/CCA Ratio: 0.6 External carotid artery: Proximal: PSV: 96 cm/s. EDV: 14 cm/s. Mild heterogeneous plaque at origin. Subclavian artery: Proximal: PSV: 124 cm/s. EDV: 0 cm/s. Vertebral artery: PSV: 59 cm/s. EDV: 16 cm/s. IMPRESSION Please note: the new carotid interpretation criteria are used as recommended by [employer]. When compared with the prior study, of 07/02/2022 no significant change is noted on the right side and no significant change is noted on the left side. RIGHT SIDE Common carotid artery: Patent. Internal carotid artery: <50% stenosis consistent with mild carotid artery disease. External carotid artery: Patent. Vertebral artery: Patent and antegrade flow noted. Innominate artery: Patent. Subclavian artery: Patent. LEFT SIDE Common carotid artery: Patent. Internal carotid artery: Normal study. External carotid artery: Patent. Vertebral artery: Patent and antegrade flow noted. Subclavian artery: Patent. Technologist: Selena Shaikh RVT Ordering physician: YRN HOLLAND Interpreting physician: Nicholas Caldwell MD, RPVI Final CC [employer] Image : [id number] See Link below for Image Normal [facility] 11-23-2024 [facility] CRISSY RICHTER ([id number]) 1955 M Date Time Provider Department 11/23/24 [facility]AND [facility] During your visit today, we recorded the following information about you: Daphnie Best MA 11/23/2024 12:53 PM Signed Can we contact pt to help setup US Carotids please. Pt may call in to schedule as well. Thanks Daphnie Best MA Allergies As of Date: 11/23/2024 (No Known Allergies) Date Reviewed: 11/20/2024 Reviewed by: Yrn Holland MD - Fully Assessed Reason for Visit: Appointment [186] Prescriptions as of 01/19/2025 - atorvastatin (LIPITOR) 10 mg tablet Take 1 tablet by mouth once daily. - tamsulosin (FLOMAX) 0.4 mg Take 1 capsule by mouth once daily. Per Urology: Dr. Jorge - venlafaxine ER (EFFEXOR XR) 150 mg 24 hr capsule Take 2 capsules by mouth daily at bedtime. Per Psych, Dr. Barone - mirtazapine (REMERON) 45 mg tablet Take 1 tablet by mouth daily at bedtime. Per Psych, Dr. Barone - OLANZapine (ZYPREXA) 5 mg tablet Take 2 tablets by mouth daily at bedtime. Per Psych, Dr. Barone - buPROPion XL (WELLBUTRIN XL) 150 mg 24 hr tablet Take 150 mg by mouth once daily. - TURMERIC ORAL Take by mouth. Taking 1000 mg daily - qa-owp-pgzbr acid-lutein (CENTRUM SILVER) 400-250 mcg chew Take 1 tablet by mouth once daily. 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] 01/31/2007 Benign non-nodular prostatic hyperplasia withou*01/31/2007 Microscopic hematuria [R31.29] 11/19/2008 Disorder of prostate [N42.9] 05/07/2016 Osteoarthritis of finger of right hand [M19.041]01/28/2017 AK (actinic keratosis) [L57.0] 01/28/2017 Screening for colon cancer [Z12.11] 01/28/2017 Hydrocele, right [N43.3] 02/15/2018 Elevated hemoglobin A1c [R73.09] 02/16/2018 Encounter for Medicare annual wellness exam [Z0*02/26/2021 Dyslipidemia [E78.5] 02/27/2021 Major depressive disorder, recurrent episode, s*07/30/2021 Severe anxiety [F41.9] 09/16/2021 Medication management [Z79.899] 03/16/[address] [Z78.9] 03/27/2022 Advance directive discussed with patient [Z71.8*03/27/2022 Bilateral carotid artery stenosis [I65.23] 07/02/2022 Oropharyngeal dysphagia [R13.12] 03/10/2023 Nystagmus [H55.00] 11/20/2024 Encounter Status:Closed by DAPHNIE BEST on 01/19/25 [facility] 11-21-2024 [facility] CRISSY RICHTER ([id number]) 1955 M Date Time Provider Department 11/21/24 YRN HOLLAND During your visit today, we recorded the following information about you: Maryann Chen RN 11/21/2024 3:00 PM Signed Pt called in and was asking if the provider would look at the results of his CT and get back to him. IMPRESSION: No acute intracranial abnormality. 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 ANKIT Frey Jeffrey A, MD 11/21/2024 3:52 PM Signed Let patient know CT of his brain was normal for his age without any acute abnormalities. Daphnie Best MA 11/21/2024 4:00 PM Signed Call to pt and notified him of results below. Pt asking if he can drive, reviewed with PCP who notified yes he could. Asking about lab results, notified pt that labs have not all fully came back and once they do they will be reviewed and him notified. Pt understood. Daphnie Best MA Allergies As of Date: 11/21/2024 (No Known Allergies) Date Reviewed: 11/20/2024 Reviewed by: Yrn Holland MD - Fully Assessed Reason for Visit: Results [95] Prescriptions as of 11/21/2024 - atorvastatin (LIPITOR) 10 mg tablet Take 1 tablet by mouth once daily. - tamsulosin (FLOMAX) 0.4 mg Take 1 capsule by mouth once daily. Per Urology: Dr. Jorge - venlafaxine ER (EFFEXOR XR) 150 mg 24 hr capsule Take 2 capsules by mouth daily at bedtime. Per Psych, Dr. Barone - mirtazapine (REMERON) 45 mg tablet Take 1 tablet by mouth daily at bedtime. Per Psych, Dr. Barone - OLANZapine (ZYPREXA) 5 mg tablet Take 2 tablets by mouth daily at bedtime. Per Psych, Dr. Barone - buPROPion XL (WELLBUTRIN XL) 150 mg 24 hr tablet Take 150 mg by mouth once daily. - TURMERIC ORAL Take by mouth. Taking 1000 mg daily - ni-ouc-kpepl acid-lutein (CENTRUM SILVER) 400-250 mcg chew Take 1 tablet by mouth once daily. 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] 01/31/2007 Benign non-nodular prostatic hyperplasia withou*01/31/2007 Microscopic hematuria [R31.29] 11/19/2008 Disorder of prostate [N42.9] 05/07/2016 Osteoarthritis of finger of right hand [M19.041]01/28/2017 AK (actinic keratosis) [L57.0] 01/28/2017 Screening for colon cancer [Z12.11] 01/28/2017 Hydrocele, right [N43.3] 02/15/2018 Elevated hemoglobin A1c [R73.09] 02/16/2018 Encounter for Medicare annual wellness exam [Z0*02/26/2021 Dyslipidemia [E78.5] 02/27/2021 Major depressive disorder, recurrent episode, s*07/30/2021 Severe anxiety [F41.9] 09/16/2021 Medication management [Z79.899] 03/16/[address] [Z78.9] 03/27/2022 Advance directive discussed with patient [Z71.8*03/27/2022 Bilateral carotid artery stenosis [I65.23] 07/02/2022 Oropharyngeal dysphagia [R13.12] 03/10/2023 Nystagmus [H55.00] 11/20/2024 Encounter Status:Closed by DAPHNIE BEST on 11/21/[address] [facility] [address] BRAIN WO IVCONon 11-22-19 CT BRAIN WO IVCON * * *Final Report* * * DATE OF EXAM: Nov 21 2024 8:19AM [facility] 0504 - CT BRAIN WO IVCON / PROCEDURE REASON: multiple diagnoses * * * * Physician Interpretation * * * * EXAMINATION: CT BRAIN WO IVCON CLINICAL HISTORY: Transient alteration of awareness and transient global of anesthesia TECHNIQUE: Serial axial images without IV contrast were obtained from the vertex to the foramen magnum. MQ: CTBWO_3 CT Radiation dose: Integrated Dose-Length Product (DLP) for this visit = 719 mGy*cm CT Dose Reduction Employed: Automated exposure control(AEC) and iterative recon COMPARISON: MRI brain 03/04/2023. RESULT: Localizer images: Post-operative change: None. Acute change: No evidence of an acute infarct or other acute parenchymal process. Hemorrhage: No evidence of acute intracranial hemorrhage. ECASS hemorrhagic transformation score: Not Applicable Mass Lesion / Mass Effect: There is no evidence of an intracranial mass or extraaxial fluid collection. No significant mass effect. Chronic change: Scattered patchy foci of low attenuation are present within the supratentorial white matter, a nonspecific finding that most commonly represents mild small vessel disease. Parenchyma: There is no significant volume loss. The brain parenchyma is otherwise within normal limits for age. Ventricles: The ventricles are within normal limits of size and configuration for age. Paranasal sinuses and skull base: The visualized paranasal sinuses are grossly clear. The skull base and imaged soft tissues are unremarkable. IMPRESSION: No acute intracranial abnormality. 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 Clerk Typist: [facility] Transcribe Date/Time: Nov 21 2024 8:34A Dictated by : ROSEANNA BEASLEY MD This examination was interpreted and the report reviewed and electronically signed by: ROSEANNA BEASLEY MD on Nov 21 2024 8:35AM EST [id number] Normal [facility] CT Head WO contraston 2024 IMPRESSION: No acute intracranial abnormality. 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 Clerk Typist: [facility] Transcribe Date/Time: Nov 21 2024 8:34A Dictated by : ROSEANNA BEASLEY MD This examination was interpreted and the report reviewed and electronically signed by: ROSEANNA BEASLEY MD on Nov 21 2024 8:35AM EST DIVISION OF RADIOLOGY * * *Final Report* * * DATE OF EXAM: Nov 21 2024 8:19AM [facility] 0504 - CT BRAIN WO IVCON / PROCEDURE REASON: multiple diagnoses * * * * Physician Interpretation * * * * EXAMINATION: CT BRAIN WO IVCON CLINICAL HISTORY: Transient alteration of awareness and transient global of anesthesia TECHNIQUE: Serial axial images without IV contrast were obtained from the vertex to the foramen magnum. MQ: CTBWO_3 CT Radiation dose: Integrated Dose-Length Product (DLP) for this visit = 719 mGy*cm CT Dose Reduction Employed: Automated exposure control(AEC) and iterative recon COMPARISON: MRI brain 03/04/2023. RESULT: Localizer images: Post-operative change: None. Acute change: No evidence of an acute infarct or other acute parenchymal process. Hemorrhage: No evidence of acute intracranial hemorrhage. ECASS hemorrhagic transformation score: Not Applicable Mass Lesion / Mass Effect: There is no evidence of an intracranial mass or extraaxial fluid collection. No significant mass effect. Chronic change: Scattered patchy foci of low attenuation are present within the supratentorial white matter, a nonspecific finding that most commonly represents mild small vessel disease. Parenchyma: There is no significant volume loss. The brain parenchyma is otherwise within normal limits for age. Ventricles: The ventricles are within normal limits of size and configuration for age. Paranasal sinuses and skull base: The visualized paranasal sinuses are grossly clear. The skull base and imaged soft tissues are unremarkable. DIVISION OF RADIOLOGY Provider, [facility] - 11/21/2024 * * *Final Report* * * DATE OF EXAM: Nov 21 2024 8:19AM [facility] 0504 - CT BRAIN WO IVCON / PROCEDURE REASON: multiple diagnoses * * * * Physician Interpretation * * * * EXAMINATION: CT BRAIN WO IVCON CLINICAL HISTORY: Transient alteration of awareness and transient global of anesthesia TECHNIQUE: Serial axial images without IV contrast were obtained from the vertex to the foramen magnum. MQ: CTBWO_3 CT Radiation dose: Integrated Dose-Length Product (DLP) for this visit = 719 mGy*cm CT Dose Reduction Employed: Automated exposure control(AEC) and iterative recon COMPARISON: MRI brain 03/04/2023. RESULT: Localizer images: Post-operative change: None. Acute change: No evidence of an acute infarct or other acute parenchymal process. Hemorrhage: No evidence of acute intracranial hemorrhage. ECASS hemorrhagic transformation score: Not Applicable Mass Lesion / Mass Effect: There is no evidence of an intracranial mass or extraaxial fluid collection. No significant mass effect. Chronic change: Scattered patchy foci of low attenuation are present within the supratentorial white matter, a nonspecific finding that most commonly represents mild small vessel disease. Parenchyma: There is no significant volume loss. The brain parenchyma is otherwise within normal limits for age. Ventricles: The ventricles are within normal limits of size and configuration for age. Paranasal sinuses and skull base: The visualized paranasal sinuses are grossly clear. The skull base and imaged soft tissues are unremarkable. IMPRESSION IMPRESSION: No acute intracranial abnormality. 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 Clerk Typist: [facility] Transcribe Date/Time: Nov 21 2024 8:34A Dictated by : ROSEANNA BEASLEY MD This examination was interpreted and the report reviewed and electronically signed by: ROSEANNA BEASLEY MD on Nov 21 2024 8:35AM EST [facility] Radiology Study observation (narrative) [facility] CT Head WO contrastOrdered B y: Ccf Provider on 11-21-2024 [facility] Comprehensive metabolic 2000 panelon 11-21-2024 Albumin [Mass/Vol] 4.3 g/dL 3.9 - 4.9 g/dL [facility] ALP [Catalytic activity/Vol] 126 U/L High 38 - 113 U/L [facility] ALT [Catalytic activity/Vol] 41 U/L 10 - 54 U/L [facility] Anion gap [Moles/Vol] 11 mmol/L 8 - 15 mmol/L [facility] AST [Catalytic activity/Vol] 24 U/L 14 - 40 U/L [facility] Bilirubin [Mass/Vol] 0.2 mg/dL 0.2 - 1 .3 mg/dL [facility] Calcium [Mass/Vol] 9.6 mg/dL 8.5 - 10. 2 mg/dL [facility] Chloride [Moles/Vol] 105 mmol/L 98 - 10 7 mmol/L [facility] CO2 [Moles/Vol] 24 mmol/L 22 - 30 mmol/L [facility] Creatinine [Mass/Vol] 1.08 mg/dL 0.73 - 1.22 mg/dL [facility] GFR/1.73 sq M.predicted among non-blacks MDRD (S/P/Bld) [Vol rate/Area] 74 mL/min/{1.73_m2} - PINF [facility] Comment on above: Estimated Glomerular Filtration Rate (eGFR) is calculated using the 2020 CKD-EPI creatinine equation. This equation utilizes serum creatinine, sex, and age as parameters. The creatinine assay has traceable calibration to isotope dilution-mass spectrometry. Refer to KDIGO guidelines for clinical interpretation. In patients with unstable renal function, e.g. those with acute kidney injury, the eGFR may not accurately reflect actual GFR. Glucose [Mass/Vol] 103 mg/dL High 74 - 99 mg/dL [facility] Comment on above: The [place] Di[employer] Association (ADA) provides guidance for cutoff values for fasting glucose and random glucose. The ADA defines fasting as no caloric intake for at least 8 hours. Fasting plasma glucose results between 100 to 125 mg/dL indicate increased risk for diabetes (prediabetes). Fasting plasma glucose results greater than or equal to 126 mg/dL meet the criteria for diagnosis of diabetes. In the absence of unequivocal hyperglycemia, results should be confirmed by repeat testing. In a patient with classic symptoms of hyperglycemia or hyperglycemic crisis, random plasma glucose results greater than or equal to 200 mg/dL meet the criteria for diagnosis of diabetes. Reference: Standards of Medical Care in Diabetes 2016, [place] [employer]. Diabetes Care. 2016.39(Suppl 1). Interpretation and review of laboratory results Abnormal [facility] Potassium [Moles/Vol] 4.7 mmol/L 3.7 - 5.1 mmol/L [facility] Protein [Mass/Vol] 7.2 g/dL 6.3 - 8.0 g/dL [facility] Sodium [Moles/Vol] 140 mmol/L 136 - 144 mmol/L [facility] Urea nitrogen [Mass/Vol] 21 mg/dL 9 - 24 mg/dL [facility] THYROID STIMULATING HORMONEo n 11-21-2024 TSH Qn 2.51 m[IU]/L [facility] TSH Qnon 11-21-2024 Interpretation and review of laboratory results Normal [facility] CBC W Auto Differential pane l (Bld)on 11-20-2024 Basophils (Bld) [#/Vol] 0.05 10*3/uL [facility] Basophils/100 WBC (Bld) 0.8 % [facility] Differential cell count method Nom (Bld) Auto [facility] Eosinophils (Bld) [#/Vol] 0.1 10*3/uL [facility] Eosinophils/100 WBC (Bld) 1.6 % [facility] Erythrocyte distribution width (RBC) [Ratio] 13.6 % 11.5 - 15.0 % [facility] Hematocrit (Bld) [Volume fraction] 43.4 % 39.0 - 51.0 % [facility] Hemoglobin (Bld) [Mass/Vol] 14.3 g/dL 13.0 - 17.0 g/dL [facility] Immature granulocytes (Bld) [#/Vol] [facility] Immature granulocytes/100 WBC (Bld) 0.3 % [facility] Lymphocytes (Bld) [#/Vol] 1.07 10*3/uL [facility] Lymphocytes/100 WBC (Bld) 17.6 % [facility] MCH (RBC) [Entitic mass] 29.5 pg 26.0 - 34.0 pg [facility] MCHC (RBC) [Mass/Vol] 32.9 g/dL 30.5 - 36.0 g/dL [facility] MCV (RBC) [Entitic vol] 89.5 fL 80.0 - 100.0 fL [facility] Monocytes (Bld) [#/Vol] 0.61 10*3/uL [facility] Monocytes/100 WBC (Bld) 10 % [facility] Neutrophils (Bld) [#/Vol] 4.24 10*3/uL [facility] Neutrophils/100 WBC (Bld) 69.7 % [facility] Nucleated RBC (Bld) [#/Vol] [facility] Nucleated RBC/100 WBC (Bld) [Ratio] 0 % /100 WBC [facility] Platelet mean volume (Bld) [Entitic vol] 9.8 fL 9.0 - 12.7 fL [facility] Platelets (Bld) [#/Vol] 288 10*3/uL [facility] RBC (Bld) [#/Vol] 4.85 10*6/uL 4.20 - 6.0 0 m/uL [facility] WBC (Bld) [#/Vol] 6.09 10*3/uL [facility] Basophils (Bld) [#/Vol] 0.05 10*3/uL Normal <0.11 [facility] Comment on above: Order Comment: Speci men Type: URINE SPECIMEN Ordering Facility: [facility] Address: [address] [place] [address] Performed By: #### 2 4356-8 #### [facility] CLIA [id number] [address] [place] [address] [place] Basophils/100 WBC (Bld) 0.8 % Normal [facility] Comment on above: Order Comment: Speci men Type: URINE SPECIMEN Ordering Facility: [facility] Address: [address] [place] [address] Performed By: #### 2 4356-8 #### [facility] CLIA [id number] [address] [place] [address] [place] Differential cell count method Nom (Bld) Auto Normal [facility] Comment on above: Order Comment: Speci men Type: URINE SPECIMEN Ordering Facility: [facility] Address: [address] [place] [address] Performed By: #### 2 4356-8 #### [facility] CLIA [id number] [address] [place] [address] [place] Eosinophils (Bld) [#/Vol] 0.10 10*3/uL Normal <0.46 [facility] Comment on above: Order Comment: Speci men Type: URINE SPECIMEN Ordering Facility: [facility] Address: [address] [place] [address] Performed By: #### 2 4356-8 #### [facility] CLIA [id number] [address] [place] [address] [place] Eosinophils/100 WBC (Bld) 1.6 % Normal [facility] Comment on above: Order Comment: Speci men Type: URINE SPECIMEN Ordering Facility: [facility] Address: [address] [place] [address] Performed By: #### 2 4356-8 #### [facility] CLIA [id number] [address] [place] [address] [place] Erythrocyte distribution width (RBC) [Ratio] 13.6 % Normal 11.5-15.0 [facility] Comment on above: Order Comment: Speci men Type: URINE SPECIMEN Ordering Facility: [facility] Address: [address] [place] [address] Performed By: #### 2 4356-8 #### [facility] CLIA [id number] [address] [place] [address] [place] Hematocrit (Bld) [Volume fraction] 43.4 % Normal 39.0-51.0 [facility] Comment on above: Order Comment: Speci men Type: URINE SPECIMEN Ordering Facility: [facility] Address: [address] [place] [address] Performed By: #### 2 4356-8 #### [facility] CLIA [id number] [address] [place] [address] [place] Hemoglobin (Bld) [Mass/Vol] 14.3 g/dL Normal 13.0-17.0 [facility] Comment on above: Order Comment: Speci men Type: URINE SPECIMEN Ordering Facility: [facility] Address: [address] [place] [address] Performed By: #### 2 4356-8 #### [facility] CLIA [id number] [address] [place] [address] [place] Immature granulocytes (Bld) [#/Vol] 10*3/uL Normal <0.10 [facility] Comment on above: Order Comment: Speci men Type: URINE SPECIMEN Ordering Facility: [facility] Address: [address] [place] [address] Performed By: #### 2 4356-8 #### [facility] CLIA [id number] [address] [place] [address] [place] Immature granulocytes/100 WBC (Bld) 0.3 % Normal [facility] Comment on above: Order Comment: Speci men Type: URINE SPECIMEN Ordering Facility: [facility] Address: [address] [place] [address] Performed By: #### 2 4356-8 #### [facility] CLIA [id number] [address] [place] [address] [place] Lymphocytes (Bld) [#/Vol] 1.07 10*3/uL Normal 1.00-4.00 [facility] Comment on above: Order Comment: Speci men Type: URINE SPECIMEN Ordering Facility: [facility] Address: [address] [place] [address] Performed By: #### 2 4356-8 #### [facility] CLIA [id number] [address] [place] [address] [place] Lymphocytes/100 WBC (Bld) 17.6 % Normal [facility] Comment on above: Order Comment: Speci men Type: URINE SPECIMEN Ordering Facility: [facility] Address: [address] [place] [address] Performed By: #### 2 4356-8 #### [facility] CLIA [id number] [address] [place] [address] [place] MCH (RBC) [Entitic mass] 29.5 pg Normal 26.0-34.0 [facility] Comment on above: Order Comment: Speci men Type: URINE SPECIMEN Ordering Facility: [facility] Address: [address] [place] [address] Performed By: #### 2 4356-8 #### [facility] CLIA [id number] [address] [place] [address] [place] MCHC (RBC) [Mass/Vol] 32.9 g/dL Normal 30.5-36.0 [facility] Comment on above: Order Comment: Speci men Type: URINE SPECIMEN Ordering Facility: [facility] Address: [address] [place] [address] Performed By: #### 2 4356-8 #### [facility] CLIA [id number] [address] [place] [address] [place] MCV (RBC) [Entitic vol] 89.5 fL Normal 80.0-100.0 [facility] Comment on above: Order Comment: Speci men Type: URINE SPECIMEN Ordering Facility: [facility] Address: [address] [place] [address] Performed By: #### 2 4356-8 #### [facility] CLIA [id number] [address] [place] [address] [place] Monocytes (Bld) [#/Vol] 0.61 10*3/uL Normal <0.87 [facility] Comment on above: Order Comment: Speci men Type: URINE SPECIMEN Ordering Facility: [facility] Address: [address] [place] [address] Performed By: #### 2 4356-8 #### [facility] CLIA [id number] [address] [place] [address] [place] Monocytes/100 WBC (Bld) 10.0 % Normal [facility] Comment on above: Order Comment: Speci men Type: URINE SPECIMEN Ordering Facility: [facility] Address: [address] [place] [address] Performed By: #### 2 4356-8 #### [facility] CLIA [id number] [address] [place] [address] [place] Neutrophils (Bld) [#/Vol] 4.24 10*3/uL Normal 1.45-7.50 [facility] Comment on above: Order Comment: Speci men Type: URINE SPECIMEN Ordering Facility: [facility] Address: [address] [place] [address] Performed By: #### 2 4356-8 #### [facility] CLIA [id number] [address] [place] [address] [place] Neutrophils/100 WBC (Bld) 69.7 % Normal [facility] Comment on above: Order Comment: Speci men Type: URINE SPECIMEN Ordering Facility: [facility] Address: [address] [place] [address] Performed By: #### 2 4356-8 #### [facility] CLIA [id number] [address] [place] [address] [place] Nucleated RBC (Bld) [#/Vol] 10*3/uL Normal <0.01 [facility] Comment on above: Order Comment: Speci men Type: URINE SPECIMEN Ordering Facility: [facility] Address: [address] [place] [address] Performed By: #### 2 4356-8 #### [facility] CLIA [id number] [address] [place] [address] [place] Nucleated RBC/100 WBC (Bld) [Ratio] 0.0 /100 WBC Normal [facility] Comment on above: Order Comment: Speci men Type: URINE SPECIMEN Ordering Facility: [facility] Address: [address] [place] [address] Performed By: #### 2 4356-8 #### [facility] CLIA [id number] [address] [place] [address] [place] Platelet mean volume (Bld) [Entitic vol] 9.8 fL Normal 9.0-12.7 [facility] Comment on above: Order Comment: Speci men Type: URINE SPECIMEN Ordering Facility: [facility] Address: [address] [place] [address] Performed By: #### 2 4356-8 #### [facility] CLIA [id number] [address] [place] [address] [place] Platelets (Bld) [#/Vol] 288 10*3/uL Normal 150-400 [facility] Comment on above: Order Comment: Speci men Type: URINE SPECIMEN Ordering Facility: [facility] Address: [address] [place] [address] Performed By: #### 2 4356-8 #### [facility] CLIA [id number] [address] [place] [address] [place] RBC (Bld) [#/Vol] 4.85 10*6/uL Normal 4.20-6.00 [facility] Comment on above: Order Comment: Speci men Type: URINE SPECIMEN Ordering Facility: [facility] Address: [address] [place] [address] Performed By: #### 2 4356-8 #### [facility] CLIA [id number] [address] [place], [place] [address] [place] WBC (Bld) [#/Vol] 6.09 10*3/uL Normal 3.70-11.00 [facility] Comment on above: Order Comment: Speci men Type: URINE SPECIMEN Ordering Facility: [facility] Address: [address] [place], [place] [address] Performed By: #### 2 4356-8 #### [facility] CLIA [id number] [address] [place], [place] [address] [place] CNOVon 11-20-2024 CNOV Office Visit (FAMPWS ) CRISSY RICHTER ([id number]) 1955 M Date Time Provider Department 11/20/24 11:00 AM [facility] During your visit today, we recorded the following information about you: Pulse Respiration Blood pressure Weight 98/minute 16/minute 118/74 72.4 kg Yrn Holland MD 11/20/2024 7:10 PM Signed Chief Complaint Patient presents with: Gait Problem HPI Crissy Richter is a 69 year old male who presents here today for an acute visit. Pt contacted the office and spoke with Triage about an episode patient had over the weekend while hiking. noticed that patient was walking with his left shoulder lopsided. She asked him to straighten up, he told her he was but they were not. then said they went to go sit down, instead of sitting down patient fell down backwards. After a while patient was okay. At time of call patient states patient denied any symptoms. Crissy Richter is a 69-year-old male presenting for evaluation of a recent episode of altered awareness and confusion. Crissy experienced an episode of altered awareness and confusion while out hiking at [facility]. During the episode, his senior vice president noted that his shoulder appeared to be down, and he was leaning slightly backward while walking. He did not realize his shoulder was down and denies any weakness or numbness in his left arm or leg. He was able to move his arms and grab objects when asked. When attempting to sit down at a picnic table, he wobbled backward without bending his knees but did not fall or hit his head. He seemed confused about his body positioning but was able to answer questions and make eye contact. He denies any recent changes in medications, herbal supplements, or illicit drug use. He has been taking turmeric. The day before the episode, he was confused about the functionality of the car windows, thinking they were not working when they were. He denies any recent stress or changes at home. He has been drinking the same water as his senior vice president and denies any exposure to different water sources. 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 Past medical history, appointments, medications, allergies reviewed. Previous Medical History PAST MEDICAL HISTORY Diagnosis Date Advance directive discussed with patient 03/27/2022 Discussed 03/2022: patient to bring in copies [place] (actinic keratosis) 01/28/2017 tearted with cryo 01/28/2017 Benign non-nodular prostatic hyperplasia without lower urinary tract symptoms 01/31/[address] White yearly and gets PSA's and prostate exam. 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 Oropharyngeal dysphagia 03/10/2023 swallowing exam 02/2023: [facility]: mild-Mod Osteoarthritis of finger of right hand 01/28/2017 PIP Severe anxiety 09/16/2021 Seeing Psychiatry, Lizabeth Baumann Well adult exam 05/14/2016 Can have one per , last done 02/23/2019 Previous Surgical History PAST SURGICAL HISTORY Procedure Laterality Date ARTHROSCOPY KNEE DIAGNOSTIC W/WO SYNOVIAL BX SPX 1999 Arthroscopy, knee Right x2 ARTHROSCOPY KNEE DIAGNOSTIC W/WO SYNOVIAL BX SPX 04/14/2006 left COLONOSCOPY 01/14/2018 Dr. Esteban, negative, recheck in 10 yrs COLONOSCOPY FLX DX W/COLLJ SPEC WHEN PFRMD 11/02/2008 repeat 10 yrs IMMUNOCHEMICAL FECAL OCCULT BLOOD TEST 02/03/2017 Negative Family History FAMILY HISTORY Problem Relation Age of Onset Cancer Mother pancreas, with mets to lungs, passed 05/2016 other (parkinson's disease) Father passed 2006 Patient Allergies ALLERGIES No Known Allergies Current Medications Current Outpatient Medications on File Prior to Visit Medication Sig atorvastatin (LIPITOR) 10 mg tablet Take 1 tablet by mouth once daily. tamsulosin (FLOMAX) 0.4 mg Take 1 capsule by mouth once daily. Per Urology: Dr. Jorge venlafaxine ER (EFFEXOR XR) 150 mg 24 hr capsule Take 2 capsules by mouth daily at bedtime. Per Psych, Dr. Barone mirtazapine (REMERON) 45 mg tablet Take 1 tablet by mouth daily at bedtime. P (more content not included)... Normal [facility] CRISSY RICHTER ([id number]) 1955 Date Time Provider Department 11/20/24 YRN [facility] During your visit today, we recorded the following information about you: Jayleen Mckeon, ANKIT 11/20/2024 8:22 AM Signed calls and reports that they were hiking this weekend. had notices that patient was walking with his shoulders lopsided. told patient to straighten up his shoulders. Patient said he was straightening them which he was not. reports that they were then going to sit down on a bench. Instead of sitting patient started to fall backwards. After while patient was ok. Patient currently is ok with no symptoms. Advised that patient should be seen by provider. agreeable. Patient scheduled to see Dr. Holland today. Jayleen Mckeon RN Allergies As of Date: 11/20/2024 (No Known Allergies) Date Reviewed: 05/10/2024 Reviewed by: Lisa Robin LPN - Fully Assessed Reason for Visit: Patient Update [1234] Prescriptions as of 11/20/2024 - atorvastatin (LIPITOR) 10 mg tablet Take 1 tablet by mouth once daily. - tamsulosin (FLOMAX) 0.4 mg Take 1 capsule by mouth once daily. Per Urology: Dr. Jorge - venlafaxine ER (EFFEXOR XR) 150 mg 24 hr capsule Take 2 capsules by mouth daily at bedtime. Per Psych, Dr. Barone - mirtazapine (REMERON) 45 mg tablet Take 1 tablet by mouth daily at bedtime. Per Psych, Dr. Barone - OLANZapine (ZYPREXA) 5 mg tablet Take 2 tablets by mouth daily at bedtime. Per Psych, Dr. Barone - buPROPion XL (WELLBUTRIN XL) 150 mg 24 hr tablet Take 150 mg by mouth once daily. - TURMERIC ORAL Take by mouth. Taking 1000 mg daily - mb-azb-zkrch acid-lutein (CENTRUM SILVER) 400-250 mcg chew Take 1 tablet by mouth once daily. Problem List As Of Date 11/20/2024 Noted Resolved Hypertonicity of bladder [N31.8] 01/31/2007 Benign non-nodular prostatic hyperplasia withou*01/31/2007 Microscopic hematuria [R31.29] 11/19/2008 Disorder of prostate [N42.9] 05/07/2016 Osteoarthritis of finger of right hand [M19.041]01/28/2017 [place] (actinic keratosis) [L57.0] 01/28/2017 Screening for colon cancer [Z12.11] 01/28/2017 Hydrocele, right [N43.3] 02/15/2018 Elevated hemoglobin A1c [R73.09] 02/16/2018 Encounter for Medicare annual wellness exam [Z0*02/26/2021 Dyslipidemia [E78.5] 02/27/2021 Major depressive disorder, recurrent episode, s*07/30/2021 Severe anxiety [F41.9] 09/16/2021 Medication management [Z79.899] 03/16/[address] [Z78.9] 03/27/2022 Advance directive discussed with patient [Z71.8*03/27/2022 Bilateral carotid artery stenosis [I65.23] 07/02/2022 Oropharyngeal dysphagia [R13.12] 03/10/2023 Encounter Status:Closed by JAYLEEN MCKEON on 11/20/24 Normal [facility] Comprehensive metabolic 2000 panelon 11-20-2024 Albumin [Mass/Vol] 4.3 g/dL Normal 3.9-4.9 [facility] Comment on above: Order Comment: Speci men Type: BLOOD SPECIMENOrdering Facility: [facility] Address: [address] [place] [address] Performed By: #### 2 4323-8, 3 ####[facility] LAB[facility]IA [id number] [place] [address] [place] ALP [Catalytic activity/Vol] 126 U/L High 38-113 [facility] Comment on above: Order Comment: Speci men Type: BLOOD SPECIMENOrdering Facility: [facility] Address: [address] [place] [address] Performed By: #### 2 4323-8, 3015-3 ####[facility] LAB[facility] [id number] [place] [address] [place] ALT [Catalytic activity/Vol] 41 U/L Normal 10-54 [facility] Comment on above: Order Comment: Speci men Type: BLOOD SPECIMENOrdering Facility: [facility] ADMINISTRATION Address: [address] [place] [address] Performed By: #### 2 4323-8, 3016-3 ####[facility] LABCLIA [id number] [address] [place] [address] [place] Anion gap [Moles/Vol] 11 mmol/L Normal 8-15 [facility] Comment on above: Order Comment: Speci men Type: BLOOD SPECIMENOrdering Facility: [facility] Address: [address] [place], [place] [address] Performed By: #### 2 4323-8, 3015-3 ####[facility] LABCLIA [id number] [place] [id number] [place] AST [Catalytic activity/Vol] 24 U/L Normal 14-40 [facility] Comment on above: Order Comment: Speci men Type: BLOOD SPECIMENOrdering Facility: [facility] Address: [address] [place], [place] [address] Performed By: #### 2 4323-8, 6-3 ####[facility] LABCLIA [id number] [place] [id number] [place] Bilirubin [Mass/Vol] 0.2 mg/dL Normal 0.2-1.3 [facility] Comment on above: Order Comment: Speci men Type: BLOOD SPECIMENOrdering Facility: [facility] Address: [address] [place], [place] [address] Performed By: #### 2 4323-8, 6-3 ####[facility] LABCLIA [id number] [address] [address] [place] Calcium [Mass/Vol] 9.6 mg/dL Normal 8.5-10.2 [facility] Comment on above: Order Comment: Speci men Type: BLOOD SPECIMENOrdering Facility: [facility] Address: [address] [place], [place] [address] Performed By: #### 2 4323-8, 3016-3 ####[facility] LABCLIA [id number] [facility] [address] [address] [place] Chloride [Moles/Vol] 105 mmol/L Normal 98-107 [facility] Comment on above: Order Comment: Speci men Type: BLOOD SPECIMENOrdering Facility: [facility] Address: [address] [place] [address] Performed By: #### 2 4323-8, 3016-3 ####[facility] LABCLIA [id number] [address] [address] [place] CO2 [Moles/Vol] 24 mmol/L Normal 22-30 [facility] Comment on above: Order Comment: Speci men Type: BLOOD SPECIMENOrdering Facility: [facility] Address: [address] [place] [address] Performed By: #### 2 4323-8, 6-3 ####[facility] LABCLIA [id number] [address] [address] [place] Creatinine [Mass/Vol] 1.08 mg/dL Normal 0.73-1.22 [facility] Comment on above: Order Comment: Speci men Type: BLOOD SPECIMENOrdering Facility: [facility] Address: [address] [place] [address] Performed By: #### 2 4323-8, 6-3 ####[facility] LABIA [id number] [address] [address] [place] Creatinine and Glomerular filtration rate.predicted panel (S/P/Bld) 74 mL/min/1.73m??? Normal >=60 [facility] Comment on above: Order Comment: Speci men Type: BLOOD SPECIMENOrdering Facility: [facility] Address: [address] [place] [address] Result Comment: Ofe mated Glomerular Filtration Rate (eGFR) is calculated using the 2020 CKD-EPI creatinine equation. This equation utilizes serum creatinine, sex, and age as parameters. The creatinine assay has traceable calibration to isotope dilution-mass spectrometry. Refer to KDIGO guidelines for clinical interpretation. In patients with unstable renal function, e.g. those with acute kidney injury, the eGFR may not accurately reflect actual GFR. Performed By: #### 2 4323-8, 3015-3 ####[facility] LABCLIA [id number] [facility] [address] [address] [place] Glucose [Mass/Vol] 103 mg/dL High 74-99 [facility] Comment on above: Order Comment: Susan swanson Type: BLOOD SPECIMENOrdering Facility: [facility] Address: [address] [place] [address] Result Comment: The [place] [employer] (ADA) provides guidance for cutoff values for fasting glucose and random glucose. The ADA defines fasting as no caloric intake for at least 8 hours. Fasting plasma glucose results between 100 to 125 mg/dL indicate increased risk for diabetes (prediabetes). Fasting plasma glucose results greater than or equal to 126 mg/dL meet the criteria for diagnosis of diabetes. In the absence of unequivocal hyperglycemia, results should be confirmed by repeat testing. In a patient with classic symptoms of hyperglycemia or hyperglycemic crisis, random plasma glucose results greater than or equal to 200 mg/dL meet the criteria for diagnosis of diabetes. Reference: Standards of Medical Care in Diabetes 2016, [place] [employer]. Diabetes Care. 2016.39(Suppl 1). Performed By: #### 2 4323-8, 3015-3 ####[facility] LABCLIA [id number] [facility] [address] [address] [place] Potassium [Moles/Vol] 4.7 mmol/L Normal 3.7-5.1 [facility] Comment on above: Order Comment: Susan swanson Type: BLOOD SPECIMENOrdering Facility: [facility] Address: [address] [place] [address] Performed By: #### 2 4323-8, 3015-3 ####[facility] LABCLIA [id number] [facility] [address] [address] [place] Protein [Mass/Vol] 7.2 g/dL Normal 6.3-8.0 [facility] Comment on above: Order Comment: Speci men Type: BLOOD SPECIMENOrdering Facility: [facility] Address: [address] [place] [id number] Performed By: #### 2 4323-8, 3016-3 ####[facility] LABCLIA [id number] [place] [id number] [place] Sodium [Moles/Vol] 140 mmol/L Normal 136-144 [facility] Comment on above: Order Comment: Speci men Type: BLOOD SPECIMENOrdering Facility: [facility] Address: [address] [place] [address] Performed By: #### 2 4323-8, 3016-3 ####[facility] LABIA [id number] [place] [id number] [place] Urea nitrogen [Mass/Vol] 21 mg/dL Normal 9-24 [facility] Comment on above: Order Comment: Speci men Type: BLOOD SPECIMENOrdering Facility: [facility] Address: [address] [place] [address] Performed By: #### 2 4323-8, 3016-3 ####[facility] LABIA [id number] [place] [id number] [place] HEAVY METALS SCRN BLon 11-20 ARSENIC, BLOOD <10.0 Normal <=12.0 [facility] Comment on above: Order Comment: Speci men Type: BLOOD SPECIMENOrdering Facility: [facility] Address: [address] [place] [address] Result Comment: INTE RPRETIVE INFORMATION: Arsenic, Blood Elevated results may be due to skin or collection-related contamination, including the use of a noncertified metal-free collection/transport tube. If contamination concerns exist due to elevated levels of blood arsenic, confirmation with a second specimen collected in a certified metal-free tube is recommended. Potentially toxic ranges for blood arsenic: Greater than or equal to 600 ug/L. Blood arsenic is for the detection of recent exposure poisoning only. Blood arsenic levels in healthy subjects vary considerably with exposure to arsenic in the diet and the environment. A 24-hour urine arsenic is useful for the detection of chronic exposure. This test was developed and its performance characteristics determined by [facility]. It has not been cleared or approved by the [place] Food and Drug Administration. This test was performed in a CLIA certified laboratory and is intended for clinical purposes. Performed By: #### H EVMET ####[facility] LABORATORIESCLIA [id number] [place] [address] LEAD <2.0 Normal <=4.9 [facility] Comment on above: Order Comment: Speci men Type: BLOOD SPECIMENOrdering Facility: [facility] Address: [facility] [place] [address] Result Comment: INTE RPRETIVE INFORMATION: Lead, Blood (Venous) Analysis performed by Inductively Coupled Plasma-Mass Spectrometry (ICP-MS). Elevated results may be due to skin or collection-related contamination, including the use of a noncertified lead-free tube. If contamination concerns exist due to elevated levels of blood lead, confirmation with a second specimen collected in a certified lead-free tube is recommended. Information sources for blood lead reference intervals and interpretive comments include the CDC's "Childhood Lead Poisoning Prevention: Recommended Actions Based on Blood Lead Level" and the Adult Blood Lead Epidemiology and Surveillance: Reference Blood Lead Levels (BLLs) for Adults in the [place]." Thresholds and time intervals for retesting, medical evaluation, and response vary by state and regulatory body. Contact your State Department of Health and/or applicable regulatory agency for specific guidance on medical management recommendations. This test was developed and its performance characteristics determined by [facility]. It has not been cleared or approved by the U.S. Food and Drug Administration. This test was performed in a CLIA-certified laboratory and is intended for clinical purposes. Group Concentration Comment Children 3.5-19.9 ug/dL Children under the age of 6 years are the most vulnerable to the harmful effects of lead exposure. Environmental investigation and exposure history to identify potential sources of lead. Biological and nutritional monitoring are recommended. Follow-up blood lead monitoring is recommended. 20-44.9 ug/dL Lead hazard reduction and prompt medical evaluation are recommended. Contact a Pediatric Environmental Health Specialty Unit or poison control center for guidance. Greater than Critical. Immediate medical 44.9 ug/dL evaluation, including detailed neurological exam is recommended. Consider chelation therapy when symptoms of lead toxicity are present. Contact a Pediatric Environmental Health Specialty Unit or poison control center for assistance. Adult 5-19.9 ug/dL Medical removal is recommended for women or those who are trying or may become . Adverse health effects are possible. Reduced lead exposure and increased blood lead monitoring are recommended. 20-69.9 ug/dL Adverse health effects are indicated. Medical removal from lead exposure is required by OSHA if blood lead level exceeds 50 ug/dL. Prompt medical evaluation is recommended. Greater than Critical. Immediate medical 69.9 ug/dL evaluation is recommended. Consider chelation therapy when symptoms of lead toxicity are present. Performed By: #### H EVMET ####DianxinIA [id number] [place] [address] MERCURY <2.5 Normal <=10.0 [facility] Comment on above: Order Comment: Speci men Type: BLOOD SPECIMENOrdering Facility: [facility] Address: [address] [place] [address] Result Comment: INTE RPRETIVE INFORMATION: Mercury, Blood Elevated results may be due to skin or collection-related contamination, including the use of a noncertified metal-free collection/transport tube. If contamination concerns exist due to elevated levels of blood mercury, confirmation with a second specimen collected in a certified metal-free tube is recommended. Blood mercury levels predominantly reflect recent exposure and are most useful in the diagnosis of acute poisoning as blood mercury concentrations rise sharply and fall quickly over several days after ingestion. Blood concentrations in unexposed individuals rarely exceed 20 ug/L. The provided reference interval relates to inorganic mercury concentrations. Dietary and non-occupational exposure to organic mercury forms may contribute to an elevated total mercury result. Clinical presentation after toxic exposure to organic mercury may include dysarthria, ataxia and constricted vision naqvi with mercury blood concentrations from 20 to 50 ug/L. This test was developed and its performance characteristics determined by [facility]. It has not been cleared or approved by the US Food and Drug Administration. This test was performed in a CLIA certified laboratory and is intended for clinical purposes. Performed By: [facility] [address] [place] [address] Drug Enforcement Agent: Joaquim Real MD, PhD CLIA Number: [id number] Performed By: #### H EVMET ####[facility]ORATORIESIA [id number] [place] [address] QUANT TOX PANELon 11-20-2024 9-Vgmivvwkcu-4,5-Dimet hyl-3,3-Diphenylpyrrol idine (EDDP) Confirm (U) [Mass/Vol] <25 Normal <25 [facility] Comment on above: Order Comment: Speci men Type: URINE SPECIMEN [facility] Address: [address] [place] [address] Result Comment: 1-Iixgvdbyuy-5,6-shveemju-8,3-diphenylpyrrolidine (EDDP) is a metabolite of methadone. Performed By: #### 2 4356-8 #### [facility] LAB CLIA [id number] [address] [place] [address] [place] 6-Monoacetylmorphine (6-JAMIE) (U) [Mass/Vol] <5 Normal <5 [facility] Comment on above: Order Comment: Speci men Type: URINE SPECIMEN [facility] Address: [address] [place] [address] Result Comment: 6-Mo noacetylmorphine is a metabolite of heroin. Performed By: #### 2 4356-8 #### [facility] LAB CLIA [id number] [address] [place] [address] [place] Amphetamine Confirm (U) [Mass/Vol] <25 Normal <25 [facility] Comment on above: Order Comment: Speci men Type: URINE SPECIMEN [facility] Address: [address] [place] [address] Result Comment: Meth ylphenidate does not contain or metabolize to amphetamine. Performed By: #### 2 4356-8 #### [facility] LAB CLIA [id number] [address] [place] [address] [place] Benzoylecgonine Confirm (U) [Mass/Vol] <25 Normal <25 [facility] Comment on above: Order Comment: Speci men Type: URINE SPECIMEN [facility] Address: [address] [place] [address] Result Comment: Newton oylecgonine is a metabolite of cocaine. Performed By: #### 2 4356-8 #### [facility] LAB CLIA [id number] [address] [place] [address] [place] Buprenorphine (U) [Mass/Vol] <5 Normal <5 [facility] Comment on above: Order Comment: Speci men Type: URINE SPECIMEN [facility] Address: [address] [place] [address] Result Comment: Mahsa ents using transdermal formulations of buprenorphine may yield undetectable buprenorphine and norbuprenorphine urine concentrations. Performed By: #### 2 4356-8 #### [facility] LAB CLIA [id number] [address] [place] [address] [place] Carboxy tetrahydrocannabinol (U) [Mass/Vol] <10 Normal <10 [facility] Comment on above: Order Comment: Speci men Type: URINE SPECIMEN [facility] Address: [address] [place] [address] Result Comment: 11-N ho-2-ekjqxwy-tetrahydrocannabinol (vfrob-2-ivsotno-THC) is a metabolite of jxmpi-8-ksfncxjrhpiuylzdbhnc (THC). This test does not differentiate between delta-8 or delta-9 carboxy-THC. Performed By: #### 2 4356-8 #### [facility] LAB CLIA [id number] [address] [place] [address] [place] Codeine Confirm (U) [Mass/Vol] <25 Normal <25 [facility] Comment on above: Order Comment: Speci men Type: URINE SPECIMEN [facility] Address: [address] [place] [address] Performed By: #### 2 4356-8 #### [facility] LAB CLIA [id number] [address] [place] [address] [place] fentaNYL Confirm (U) [Mass/Vol] <1 Normal <1 [facility] Comment on above: Order Comment: Speci men Type: URINE SPECIMEN [facility] Address: [address] [place] [address] Performed By: #### 2 4356-8 #### [facility] LAB CLIA [id number] [address] [place] [address] [place] HYDROcodone Confirm (U) [Mass/Vol] <25 Normal <25 [facility] Comment on above: Order Comment: Speci men Type: URINE SPECIMEN [facility] Address: [address] [place] [address] Performed By: #### 2 4356-8 #### [facility] CLIA [id number] [address] [place] [address] [place] HYDROmorphone Confirm (U) [Mass/Vol] <25 Normal <25 [facility] Comment on above: Order Comment: Speci men Type: URINE SPECIMEN [facility] Address: [address] [place] [address] Performed By: #### 2 4356-8 #### [facility] LAB CLIA [id number] [address] [place] [address] [place] MDA, UR <25 Normal <25 [facility] Comment on above: Order Comment: Speci men Type: URINE SPECIMEN [facility] Address: [address] [place] [address] Result Comment: 3,4 Methylenedioxyamphetamine is also known as MDA. Performed By: #### 2 4356-8 #### [facility] CLIA [id number] [address] [place] [address] [place] MDEA, UR <25 Normal <25 [facility] Comment on above: Order Comment: Speci men Type: URINE SPECIMEN [facility] Address: [address] [place] [address] Result Comment: 3,4 Ocqfnxbyjzybup-X-mxziyakraejktaww is also known as MDEA. Performed By: #### 2 4356-8 #### [facility] CLIA [id number] [address] [place] [address] [place] MDMA, UR <25 Normal <25 [facility] Comment on above: Order Comment: Speci men Type: URINE SPECIMEN [facility] Address: [address] [place] [address] Result Comment: 3,4- Methylenedioxymethamphetamine is also known as MDMA. Performed By: #### 2 4356-8 #### [facility] CLIA [id number] [address] [place] [address] [place] Methadone Confirm (U) [Mass/Vol] <25 Normal <25 [facility] Comment on above: Order Comment: Speci men Type: URINE SPECIMEN [facility] Address: [address] [place] [address] Performed By: #### 2 4356-8 #### [facility] CLIA [id number] [address] [place] [address] [place] Methamphetamine Confirm (U) [Mass/Vol] <25 Normal <25 [facility] Comment on above: Order Comment: Speci men Type: URINE SPECIMEN [facility] Address: [address] [place] [address] Performed By: #### 2 4356-8 #### [facility] CLIA [id number] [address] [place] [address] [place] Morphine Confirm (U) [Mass/Vol] <25 Normal <25 [facility] Comment on above: Order Comment: Speci men Type: URINE SPECIMEN [facility] Address: [address] [place] [address] Performed By: #### 2 4356-8 #### [facility] CLIA [id number] [address] [place] [address] [place] Norbuprenorphine (U) [Mass/Vol] <10 Normal <10 [facility] Comment on above: Order Comment: Speci men Type: URINE SPECIMEN [facility] Address: [address] [place] [address] Result Comment: Norb uprenorphine is a metabolite of buprenorphine. Patients using transdermal formulations of buprenorphine may yield undetectable buprenorphine and norbuprenorphine urine concentrations. Performed By: #### 2 4356-8 #### [facility] CLIA [id number] [address] [place] [address] [place] Norfentanyl Confirm (U) [Mass/Vol] <1 Normal <1 [facility] Comment on above: Order Comment: Speci men Type: URINE SPECIMEN [facility] Address: [address] [place] [address] Result Comment: Norf entanyl is a metabolite of fentanyl. Performed By: #### 2 4356-8 #### [facility] CLIA [id number] [address] [place] [address] [place] NORHYDROCODONE, UR <25 Normal <25 [facility] Comment on above: Order Comment: Speci men Type: URINE SPECIMEN [facility] Address: [address] [place] [address] Result Comment: Norh ydrocodone is a metabolite of hydrocodone. Performed By: #### 2 4356-8 #### [facility] CLIA [id number] [address] [place] [address] [place] NOROXYCODONE, UR <25 Normal <25 [facility] Comment on above: Order Comment: Speci men Type: URINE SPECIMEN [facility] Address: [address] [place] [address] Result Comment: Noro xycodone is a metabolite of oxycodone. Performed By: #### 2 4356-8 #### [facility] CLIA [id number] [address] [place] [address] [place] NOROXYMORPHONE, UR <25 Normal <25 [facility] Comment on above: Order Comment: Speci men Type: URINE SPECIMEN [facility] Address: [address] [place] [address] Result Comment: Noro xymorphone is a metabolite of oxymorphone and oxycodone and a minor metabolite of naltrexone and naloxone. Performed By: #### 2 4356-8 #### [facility] CLIA [id number] [address] [place], [place] [address] [place] Nortramadol (U) [Mass/Vol] <25 Normal <25 [facility] Comment on above: Order Comment: Speci men Type: URINE SPECIMEN [facility] Address: [address] [place] [address] Result Comment: O-de smethyltramadol is a metabolite of tramadol. Performed By: #### 2 4356-8 #### [facility] CLIA [id number] [address] [place] [address] [place] NOTE, UR TOXICOLOGY PANEL Normal [facility] Comment on above: Order Comment: Speci men Type: URINE SPECIMEN [facility] Address: [address] [place] [address] Result Comment: For medical purposes only. Not valid for legal or forensic purposes. This test was developed, and its performance characteristics determined by the [facility] Department of Pathology and Laboratory Medicine. It has not been cleared or approved by the FDA. The [facility] Department of Pathology and Laboratory Medicine is regulated under CLIA as qualified to perform high-complexity testing. This test is used for clinical purposes. It should not be regarded as investigational or for research. Performed By: #### 2 4356-8 #### [facility] CLIA [id number] [address] [place] [address] [place] oxyCODONE Confirm (U) [Mass/Vol] <25 Normal <25 [facility] Comment on above: Order Comment: Speci men Type: URINE SPECIMEN Ordering Facility: [facility] Address: [address] [place] [address] Performed By: #### 2 4356-8 #### [facility] CLIA [id number] [address] [place] [address] [place] oxyMORphone Confirm (U) [Mass/Vol] <25 Normal <25 [facility] Comment on above: Order Comment: Speci men Type: URINE SPECIMEN Ordering Facility: [facility] Address: [address] [place] [address] Performed By: #### 2 4356-8 #### [facility] CLIA [id number] [address] [place] [address] [place] Phencyclidine Confirm (U) [Mass/Vol] <10 Normal <10 [facility] Comment on above: Order Comment: Speci men Type: URINE SPECIMEN Ordering Facility: [facility] Address: [address] [place] [address] Result Comment: Phen cyclidine is also known as PCP. Performed By: #### 2 4356-8 #### [facility] CLIA [id number] [address] [place] [address] [place] PHENTERMINE, UR <25 Normal <25 [facility] Comment on above: Order Comment: Speci men Type: URINE SPECIMEN Ordering Facility: [facility] Address: [address] [place] [address] Performed By: #### 2 4356-8 #### [facility] CLIA [id number] [address] [place] [address] [place] traMADol Confirm (U) [Mass/Vol] <25 Normal <25 [facility] Comment on above: Order Comment: Speci men Type: URINE SPECIMEN Ordering Facility: [facility] Address: [address] [place] [address] Performed By: #### 2 4356-8 #### [facility] CLIA [id number] [address] [place] [address] [place] SPECIMEN VALIDITY, URINEon 0 11-20-2024 CREATININE,URINE 147.1 mg/dL Normal 20.0-300.0 [facility] Comment on above: Order Comment: Speci men Type: URINE SPECIMENOrdering Facility: [facility] Address: [address] [place] [address] Performed By: #### L [id number] ####[facility]CLIA [id number] [place] [address] [place] NITRITES,URINE <50 Normal <500 [facility] Comment on above: Order Comment: Speci men Type: URINE SPECIMENOrdering Facility: [facility] Address: [address] [place] [address] Performed By: #### L [id number] ####[facility]CLIA [id number] [place] [id number] [place] OXIDANTS,URINE <38 Normal <200 [facility] Comment on above: Order Comment: Speci men Type: URINE SPECIMENOrdering Facility: [facility] Address: [address] [place] [address] Performed By: #### L [id number] ####[facility] LABCLIA [id number] [place] [id number] [place] pH (U) 5.3 [pH] Normal 4.5-8.0 [facility] Comment on above: Order Comment: Speci men Type: URINE SPECIMENOrdering Facility: [facility] Address: [address] [place] [address] Performed By: #### L [id number] ####[facility] LABCLIA [id number] [place] [id number] [place] SPEC GRAVITY,UR 1.019 Normal 1.003-1.035 [facility] Comment on above: Order Comment: Speci men Type: URINE SPECIMENOrdering Facility: [facility] Address: [address] [place] [address] Performed By: #### L [id number] ####[facility] LABIA [id number] [address] STATES OF [facility] SPECIMEN VALIDITY QUALITY Specimen quality results within acceptable limits Normal [facility] Comment on above: Order Comment: Speci men Type: URINE SPECIMENOrdering Facility: [facility] Address: [address] [place] [address] Performed By: #### L [id number] ####[facility]IA [id number] [address] OF [place] TOXICOLOGY SCREEN, ROUTINE U RINEon 11-20-2024 Amphetamines Confirm (U) [Mass/Vol] Negative Negative [facility] Comment on above: Cutoff threshold at 1000 ng/mL. Barbiturates, Urine Negative Negative [facility] Comment on above: Cutoff threshold at 200 ng/mL. Benzodiazepines, Urine Negative Negative [facility] Comment on above: Cutoff threshold at 200 ng/mL. Cannabinoids Screen Ql (U) Negative Negative [facility] Comment on above: Cutoff threshold at 50 ng/mL. Cocaine Ql (U) Negative Negative [facility] Comment on above: Cutoff threshold at 300 ng/mL. Ethanol (U) [Mass/Vol] mg/dL NINF - 11 mg/dL [facility] fentaNYL Screen Ql (U) Negative Negative [facility] Comment on above: Cutoff threshold at 5 ng/mL. Interpretation and review of laboratory results Normal [facility] Opiates Screen Ql (U) Negative Negative [facility] Comment on above: Cutoff threshold at 300 ng/mL. oxyCODONE cutoff Screen (U) [Mass/Vol] Negative Negative [facility] Comment on above: Cutoff threshold at 100 ng/mL. Phencyclidine Ql (U) Negative Negative [facility] Comment on above: Cutoff threshold at 25 ng/mL. Immunoassay screen o nly. Cross reactivity with other substances can occur with immunoassay screening. Detection of any drug(s) in this urine toxicology panel is presumptive only. These tests are for medical purposes only and should not be used for compliance monitoring, legal, or forensic use. Samples should be within normal physiological conditions (e.g. pH). This assay does not include adulteration/specimen validity testing. In clinical settings, confirmatory testing is at the practitioner's discretion [1]. If clinically indicated, confirmation by high specificity, quantitative methodology, which includes adulteration/specimen validity testing, may be requested on the same specimen through Client Services ([phone]) if contacted within 48 hours of initial testing. [1]Substance Abuse and Mental Health Services Administration (2012). Clinical Drug Testing in Primary Care Technical Assistance Publication Series 32. Department of Health and Human Services, [place], p.10. [facility] Amphetamines Confirm (U) [Mass/Vol] Negative Normal Negative [facility] Comment on above: Order Comment: Speci men Type: URINE SPECIMEN Ordering Facility: [facility] Address: [address] [place] [address] Result Comment: Cuto ff threshold at 1000 ng/mL. Performed By: #### 2 4356-8 #### [facility] CLIA [id number] [address] [place] [address] [place] BARBITURATES, URINE Negative Normal Negative [facility] Comment on above: Order Comment: Speci men Type: URINE SPECIMEN Ordering Facility: [facility] Address: [address] [place] [address] Result Comment: Cuto ff threshold at 200 ng/mL. Performed By: #### 2 4356-8 #### [facility] CLIA [id number] [address] [place] [address] [place] BENZODIAZEPINES, URINE Negative Normal Negative [facility] Comment on above: Order Comment: Speci men Type: URINE SPECIMEN Ordering Facility: [facility] Address: [address] [place] [address] Result Comment: Cuto ff threshold at 200 ng/mL. Performed By: #### 2 4356-8 #### [facility] CLIA [id number] [address] [place] [address] [place] Cannabinoids Screen Ql (U) Negative Normal Negative [facility] Comment on above: Order Comment: Speci men Type: URINE SPECIMEN Ordering Facility: [facility] Address: [address] [place] [address] Result Comment: Cuto ff threshold at 50 ng/mL. Performed By: #### 2 4356-8 #### [facility] CLIA [id number] [address] [place] [address] [place] Cocaine Ql (U) Negative Normal Negative [facility] Comment on above: Order Comment: Speci men Type: URINE SPECIMEN Ordering Facility: [facility] Address: [address] [place] [address] Result Comment: Cuto ff threshold at 300 ng/mL. Performed By: #### 2 4356-8 #### [facility] CLIA [id number] [address] [place] [address] [place] Ethanol (U) [Mass/Vol] <11 Normal <11 [facility] Comment on above: Order Comment: Speci men Type: URINE SPECIMEN Ordering Facility: [facility] Address: [address] [place] [address] Performed By: #### 2 4356-8 #### [facility] CLIA [id number] [address] [place] [address] [place] fentaNYL Screen Ql (U) Negative Normal Negative [facility] Comment on above: Order Comment: Speci men Type: URINE SPECIMEN Ordering Facility: [facility] Address: [address] [place] [address] Result Comment: Cuto ff threshold at 5 ng/mL. Performed By: #### 2 4356-8 #### [facility] CLIA [id number] [address] [place] [address] [place] Opiates Screen Ql (U) Negative Normal Negative [facility] Comment on above: Order Comment: Speci men Type: URINE SPECIMEN Ordering Facility: [facility] Address: [address] [place] [address] Result Comment: Cuto ff threshold at 300 ng/mL. Performed By: #### 2 4356-8 #### [facility] CLIA [id number] [address] [place] [address] [place] oxyCODONE cutoff Screen (U) [Mass/Vol] Negative Normal Negative [facility] Comment on above: Order Comment: Speci men Type: URINE SPECIMEN Ordering Facility: [facility] Address: [address] [place] [address] Result Comment: Cuto ff threshold at 100 ng/mL. Performed By: #### 2 4356-8 #### [facility] CLIA [id number] [address] [place] [address] [place] Phencyclidine Ql (U) Negative Normal Negative [facility] Comment on above: Order Comment: Speci men Type: URINE SPECIMEN Ordering Facility: [facility] Address: [address] [place] [address] Result Comment: Cuto ff threshold at 25 ng/mL. Performed By: #### 2 4356-8 #### [facility] CLIA [id number] [address] [place] [address] [place] TSH SerPl-aCncon 11-20-2024 TSH Qn 2.510 m[IU]/L Normal 0.270-4.200 [facility] Comment on above: Order Comment: Speci men Type: BLOOD SPECIMENOrdering Facility: [facility] Address: [address] [place] [address] Performed By: #### 2 4323-8, 3016-3 ####[facility] LABCLIA [id number] [place] [address] [place] Urinalysis complete panel (U )on 11-20-2024 Bacteria LM.HPF (Urine sed) [#/Area] Negative Negative /HPF [facility] Bilirubin Ql (U) Negative [facility] Clarity (Unsp spec) Clear Clear Roger [facility] Color (U) Yellow Yellow [facility] Epithelial cells LM.HPF (Urine sed) [#/Area] None Seen /HPF [facility] Glucose Test strip (U) [Mass/Vol] Negative Negative [facility] Hemoglobin Ql (U) Negative Negative [facility] Hyaline casts (Urine sed) [#/Area] 0 /[LPF] 0 /LPF [facility] Ketones Ql (U) Negative Negative [facility] Leukocyte esterase Test strip Ql (U) Negative Negative [facility] Nitrite Ql (U) Negative Negative [facility] pH (U) 5.5 [pH] NINF - 8.5 [facility] Protein (U) [Mass/Vol] Negative Negative [facility] RBC LM.HPF (Urine sed) [#/Area] 0-2 /HPF 0-2 /HPF [facility] Specific gravity (U) [Rel density] 1.023 1.005 - 1.030 [facility] Urobilinogen Ql (U) 0.2 EU/dL 0.2-1.0 EU/dL [facility] WBC LM.HPF (Urine sed) [#/Area] 0-5 /HPF 0-5 /HPF [facility] This test was kathy barbosa and its performance characteristics determined by [facility]'s [facility] [place] ([facility]). It has not been cleared or approved by the FDA. [facility] is regulated under CLIA as qualified to perform high-complexity testing. This test is used for clinical purposes. It should not be regarded as investigational or for research. [facility] Bacteria LM.HPF (Urine sed) [#/Area] Negative Normal Negative [facility] Comment on above: Order Comment: Speci men Type: URINE SPECIMEN Ordering Facility: [facility] Address: [address] [place] [address] Performed By: #### 2 4356-8 #### [facility] CLIA [id number] [address] [place] [address] [place] Bilirubin Ql (U) Negative Normal Negative [facility] Comment on above: Order Comment: Speci men Type: URINE SPECIMEN Ordering Facility: [facility] Address: [address] [place] [address] Performed By: #### 2 4356-8 #### [facility] CLIA [id number] [facility] [place] [id number] [place] Clarity (Unsp spec) Clear Normal Clear [facility] Comment on above: Order Comment: Speci men Type: URINE SPECIMEN Ordering Facility: [facility] Address: [address] [place] [id number] Performed By: #### 2 4356-8 #### [facility] CLIA [id number] [address] [place], [place] [address] [place] Color (U) Yellow Normal Yellow [facility] Comment on above: Order Comment: Speci men Type: URINE SPECIMEN Ordering Facility: [facility] Address: [address] [place] [address] Performed By: #### 2 4356-8 #### [facility] CLIA [id number] [address] [place] [address] [place] Epithelial cells LM.HPF (Urine sed) [#/Area] None Seen Normal [facility] Comment on above: Order Comment: Speci men Type: URINE SPECIMEN Ordering Facility: [facility] Address: [address] [place] [address] Performed By: #### 2 4356-8 #### [facility] CLIA [id number] [address] [place], [place] [address] [place] Glucose Test strip (U) [Mass/Vol] Negative Normal Negative [facility] Comment on above: Order Comment: Speci men Type: URINE SPECIMEN Ordering Facility: [facility] Address: [address] [place] [address] Performed By: #### 2 4356-8 #### [facility] CLIA [id number] [address] [place], [place] [address] [place] Hemoglobin Ql (U) Negative Normal Negative [facility] Comment on above: Order Comment: Speci men Type: URINE SPECIMEN Ordering Facility: [facility] Address: [address] [place] [address] Performed By: #### 2 4356-8 #### [facility] CLIA [id number] [address] [place], [place] [address] [place] Hyaline casts (Urine sed) [#/Area] 0 /[LPF] Normal 0 /LPF [facility] Comment on above: Order Comment: Speci men Type: URINE SPECIMEN Ordering Facility: [facility] Address: [address] [place] [address] Performed By: #### 2 4356-8 #### [facility] CLIA [id number] [address] [place] [address] [place] Ketones Ql (U) Negative Normal Negative [facility] Comment on above: Order Comment: Speci men Type: URINE SPECIMEN Ordering Facility: [facility] Address: [address] [place] [address] Performed By: #### 2 4356-8 #### [facility] CLIA [id number] [address] [place] [address] [place] Leukocyte esterase Test strip Ql (U) Negative Normal Negative [facility] Comment on above: Order Comment: Speci men Type: URINE SPECIMEN Ordering Facility: [facility] Address: [address] [place] [address] Performed By: #### 2 4356-8 #### [facility] CLIA [id number] [address] [place] [address] [place] Nitrite Ql (U) Negative Normal Negative [facility] Comment on above: Order Comment: Speci men Type: URINE SPECIMEN Ordering Facility: [facility] Address: [address] [place] [address] Performed By: #### 2 4356-8 #### [facility] CLIA [id number] [address] [place] [address] [place] pH (U) 5.5 [pH] Normal <8.5 [facility] Comment on above: Order Comment: Speci men Type: URINE SPECIMEN Ordering Facility: [facility] Address: [address] [place] [address] Performed By: #### 2 4356-8 #### [facility] CLIA [id number] [address] [place] [address] [place] Protein (U) [Mass/Vol] Negative Normal Negative [facility] Comment on above: Order Comment: Speci men Type: URINE SPECIMEN Ordering Facility: [facility] Address: [address] [place] [address] Performed By: #### 2 4356-8 #### [facility] CLIA [id number] [address] [place] [address] [place] RBC LM.HPF (Urine sed) [#/Area] 0-2 /HPF Normal 0-2 /HPF [facility] Comment on above: Order Comment: Speci men Type: URINE SPECIMEN Ordering Facility: [facility] Address: [address] [place] [address] Performed By: #### 2 4356-8 #### [facility] CLIA [id number] [address] [place] [address] [place] Specific gravity (U) [Rel density] 1.023 Normal 1.005-1.030 [facility] Comment on above: Order Comment: Speci men Type: URINE SPECIMEN Ordering Facility: [facility] Address: [address] [place] [address] Performed By: #### 2 4356-8 #### [facility] CLIA [id number] [address] [place] [address] [place] Urobilinogen Ql (U) 0.2 EU/dL Normal 0.2-1.0 EU/dL [facility] Comment on above: Order Comment: Speci men Type: URINE SPECIMEN Ordering Facility: [facility] Address: [address] [place] [address] Performed By: #### 2 4356-8 #### [facility] CLIA [id number] [address] [place] [address] [place] WBC LM.HPF (Urine sed) [#/Area] 0-5 /HPF Normal 0-5 /HPF [facility] Comment on above: Order Comment: Speci men Type: URINE SPECIMEN Ordering Facility: [facility] Address: [address] [place] [address] Performed By: #### 2 4356-8 #### [facility] CLIA [id number] [address] [place] [address] [place] CNPNon 10-30-2024 [facility] CRISSY RICHTER ([id number]) 1955 Date Time Provider Department 10/30/24 [facility] [place] [facility] During your visit today, we recorded the following information about you: Maryann Chen RN 10/30/2024 8:51 AM Signed Pt called in let him know that his next appointment is on 04/04/25. Let him know that his Lipitor was sent in on 10/12/24 and to call [facility] in [place]. Maryann Chen RN Allergies As of Date: 10/30/2024 (No Known Allergies) Date Reviewed: 05/10/2024 Reviewed by: Lisa Robin LPN - Fully Assessed Reason for Visit: Patient Question [5767] Prescriptions as of 10/30/2024 - atorvastatin (LIPITOR) 10 mg tablet Take 1 tablet by mouth once daily. - tamsulosin (FLOMAX) 0.4 mg Take 1 capsule by mouth once daily. Per Urology: Dr. Jorge - venlafaxine ER (EFFEXOR XR) 150 mg 24 hr capsule Take 2 capsules by mouth daily at bedtime. Per Psych, Dr. Barone - mirtazapine (REMERON) 45 mg tablet Take 1 tablet by mouth daily at bedtime. Per Psych, Dr. Barone - OLANZapine (ZYPREXA) 5 mg tablet Take 2 tablets by mouth daily at bedtime. Per Psych, Dr. Barone - buPROPion XL (WELLBUTRIN XL) 150 mg 24 hr tablet Take 150 mg by mouth once daily. - TURMERIC ORAL Take by mouth. Taking 1000 mg daily - gp-ezu-xyoxa acid-lutein (CENTRUM SILVER) 400-250 mcg chew Take 1 tablet by mouth once daily. 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 Benign non-nodular prostatic hyperplasia withou*01/31/2007 Microscopic hematuria [R31.29] 11/19/2008 Disorder of prostate [N42.9] 05/07/2016 Osteoarthritis of finger of right hand [M19.041]01/28/2017 AK (actinic keratosis) [L57.0] 01/28/2017 Screening for colon cancer [Z12.11] 01/28/2017 Hydrocele, right [N43.3] 02/15/2018 Elevated hemoglobin A1c [R73.09] 02/16/2018 Encounter for Medicare annual wellness exam [Z0*02/26/2021 Dyslipidemia [E78.5] 02/27/2021 Major depressive disorder, recurrent episode, s*07/30/2021 Severe anxiety [F41.9] 09/16/2021 Medication management [Z79.899] 03/16/[address] [Z78.9] 03/27/2022 Advance directive discussed with patient [Z71.8*03/27/2022 Bilateral carotid artery stenosis [I65.23] 07/02/2022 Oropharyngeal dysphagia [R13.12] 03/10/2023 Encounter Status:Closed by MARYANN CHEN on 10/30/24 Normal [facility] (OUTSIDE)on 07-24-2024 [facility] PSA,Total - Annual Screenon 07-24-2024 PSA,TOT SCREEN 1.27 ng/mL Normal 0.02-4.00 [facility] Comment on above: Result Comment: This test was performed using the [employer] tPSA method. Measured values of a patient??sample can vary depending on the testing procedure used. PSA values determined on patient samples by different testing procedures cannot be used interchangeably. If there is a change in PSA assays while monitoring therapy, sequential testing should be performed to confirm baseline values. Performed By: #### L 501.9910 #### [facility] [address] [place], [address] [facility] 05-11-2024 [facility] CRISSY RICHTER ([id number]) 1955 M Date Time Provider Department 05/11/24 YRN [place] [facility] During your visit today, we recorded the following information about you: Evelyn Lowery RN 05/11/2024 2:18 PM Signed Patient phoned to ask pcp to send the atorvastatin 10 mg daily to [facility]. States he is concerned about his cholesterol levels, and pcp had recommended this a few weeks ago. Pended Rx Yrn Holland MD 05/11/2024 7:35 PM Signed The following approved medication requests have been transmitted electronically. Requested Prescriptions Signed Prescriptions Disp Refills atorvastatin (LIPITOR) 10 mg tablet 30 tablet 5 Sig: Take 1 tablet by mouth once daily. Authorizing Provider: YRN HOLLAND MD Allergies As of Date: 05/11/2024 (No Known Allergies) Date Reviewed: 05/10/2024 Reviewed by: Lisa Robin LPN - Fully Assessed Reason for Visit: Patient Question [2677] Order(s):atorvastatin (LIPITOR) 10 mg tabletTake 1 tablet by mouth once daily.Disp: 30 tabletRfl: 5 Prescriptions as of 05/11/2024 - atorvastatin (LIPITOR) 10 mg tablet Take 1 tablet by mouth once daily. - venlafaxine ER (EFFEXOR XR) 150 mg 24 hr capsule Take 2 capsules by mouth daily at bedtime. Per Psych, Dr. Barone - mirtazapine (REMERON) 45 mg tablet Take 1 tablet by mouth daily at bedtime. Per Psych, Dr. Barone - OLANZapine (ZYPREXA) 5 mg tablet Take 2 tablets by mouth daily at bedtime. Per Psych, Dr. Barone - buPROPion XL (WELLBUTRIN XL) 150 mg 24 hr tablet Take 150 mg by mouth once daily. - tamsulosin (FLOMAX) 0.4 mg Take 0.4 mg by mouth once daily. - TURMERIC ORAL Take by mouth. Taking 1000 mg daily - ms-ots-cetrz acid-lutein (CENTRUM SILVER) 400-250 mcg chew Take 1 tablet by mouth once daily. 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 Benign non-nodular prostatic hyperplasia withou*01/31/2007 Microscopic hematuria [R31.29] 11/19/2008 Disorder of prostate [N42.9] 05/07/2016 Osteoarthritis of finger of right hand [M19.041]01/28/2017 AK (actinic keratosis) [L57.0] 01/28/2017 Screening for colon cancer [Z12.11] 01/28/2017 Hydrocele, right [N43.3] 02/15/2018 Elevated hemoglobin A1c [R73.09] 02/16/2018 Encounter for Medicare annual wellness exam [Z0*02/26/2021 Dyslipidemia [E78.5] 02/27/2021 Major depressive disorder, recurrent episode, s*07/30/2021 Severe anxiety [F41.9] 09/16/2021 Medication management [Z79.899] 03/16/[address] [Z78.9] 03/27/2022 Advance directive discussed with patient [Z71.8*03/27/2022 Bilateral carotid artery stenosis [I65.23] 07/02/2022 Oropharyngeal dysphagia [R13.12] 03/10/2023 Prescriptions ordered this encounter Disp Refills Start End ATORVASTATIN 10 MG TABLET 30 t* 5 05/11/2024 Route: ORAL Sig: Take 1 tablet by mouth once daily. Encounter Status:Closed by YRN HOLLAND on 05/11/24 [facility] CNOVon 05-10-2024 CNOV Office Visit (FAMPWS ) CRISSY RICHTER ([id number]) 1955 M Date Time Provider Department 05/10/24 10:00 AM [facility] During your visit today, we recorded the following information about you: Temperature Pulse Respiration Blood pressure 97.1 degrees 89/minute 18/minute 117/77 Weight 78.9 kg Felecia Quiroz PA-C 05/10/2024 10:16 AM Signed Chief Complaint Patient presents with: Follow Up: Blood pressure HPI Crissy Richter is a 68 year old male who presents here today for BP recheck. Patient was seen for wellness exam on 04/19 and his BP was elevated. No past hx of HTN and not on medication for BP. No other concerns today Past medical history, appointments, medications, allergies reviewed. Previous Medical History PAST MEDICAL HISTORY Diagnosis Date Advance directive discussed with patient 03/27/2022 Discussed 03/2022: patient to bring in copies AK (actinic keratosis) 01/28/2017 tearted with cryo 01/28/2017 Benign non-nodular prostatic hyperplasia without lower urinary tract symptoms 01/31/[address] White yearly and gets PSA's and prostate exam. 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 Internal hemorrhoids without mention of complication Living will in place 03/27/2022 DPA: Tiffanie () Major depressive disorder, recurrent episode, severe with anxious distress (HCC) 07/30/2021 Seeing Psychiatry, Lizabeth Baumann Medicare annual wellness visit, initial 02/26/2021 Medicare Part b: Last done: 02/26/2021 Microscopic hematuria 11/19/2008 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 Esteban, negative, recheck in 10 yrs COLONOSCOPY FLX DX W/COLLJ SPEC WHEN PFRMD 11/02/2008 repeat 10 yrs FECAL OCCULT BLOOD TEST 02/03/2017 Negative Family History FAMILY HISTORY Problem Relation Age of Onset Cancer Mother pancreas, with mets to lungs, passed 05/2016 other (parkinson's disease) Father passed 2006 Patient Allergies ALLERGIES No Known Allergies Current Medications Current Outpatient Medications on File Prior to Visit Medication Sig venlafaxine ER (EFFEXOR XR) 150 mg 24 hr capsule Take 2 capsules by mouth daily at bedtime. Per Psych, Dr. Barone mirtazapine (REMERON) 45 mg tablet Take 1 tablet by mouth daily at bedtime. Per Psych, Dr. Barone OLANZapine (ZYPREXA) 5 mg tablet Take 2 tablets by mouth daily at bedtime. Per Psych, Dr. Barone buPROPion XL (WELLBUTRIN XL) 150 mg 24 hr tablet Take 150 mg by mouth once daily. tamsulosin (FLOMAX) 0.4 mg Take 0.4 mg by mouth once daily. TURMERIC ORAL Take by mouth. Taking 1000 mg daily zm-iaj-nyiqb acid-lutein (CENTRUM SILVER) 400-250 mcg chew Take 1 tablet by mouth once daily. No current facility-administered medications on file prior to visit. Social History Social History Tobacco Use Smoking status: Never Smokeless tobacco: Never Substance Use Topics Alcohol use: No Drug use: No Review of Symptoms REVIEW OF SYSTEMS GENERAL: No weight loss, malaise or fevers EXAM: BP 122/81 (BP Site: Left Arm, BP Position: Sitting, BP Cuff Size: Regular Adult) Pulse 89 Temp 36.2 ?C (97.1 ?F) Resp 18 Wt 78.9 kg (174 lb) SpO2 99% BMI 25.33 kg/m? BP 117/77 Pulse 89 Temp 36.2 ?C (97.1 ?F) Resp 18 Wt 78.9 kg (174 lb) SpO2 99% BMI 25.33 kg/m? General Appearance: Well appearing, alert, in no acute distress, well-hydrated, well nourished.. Health Maintenance List Diabetes Screening due on 04/19/2027 Colorectal Cancer Screening due on 01/15/2028 Prostate Cancer Screening Discussion due on 07/13/2028 Lipid Screening due on 04/19/2029 RSV Vaccine(1 - 1-dose 75+ series) due on 2030 DTaP,Tdap,Td Vaccine(4 - Td or Tdap) due on 07/26/2033 Influenza Vaccine Completed Advance Directive Discussion Completed Shingrix Vaccine Completed Covid-19 Vaccine Completed Pneumococcal Vaccine: 50+ Completed Hepatitis C Screening Discontinued Data reviewed ASSESSMENT/PLAN: 1. Elevated blood pressure reading without diagnosis of hypertension - ICD9: 796.2, ICD10: R03.0 (more content not included)... [facility] CRISSY RICHTER ([id number]) 1955 M Date Time Provider Department 04/20/24 [facility] During your visit today, we recorded the following information about you: Yrn Holland MD 04/20/2024 1:33 PM Signed Let patient know all his recent labs and UA were good except his LDL (bal chol) continues to be high. Currently;y at 179 (goal<130 and was 164). His 10 year risk of a heart attack of stroke is about 23% which is an increase from 18% 10 months ago. Would strongly advise we start atorvastatin 10 mg a day to lesson this risk. Kemi Woo MA 04/21/2024 9:27 AM Signed Patient notified and voiced understanding. came on phone and indicated she was concerned about his medication and that did we contact his pharmacy to find out the medications he is on. I told her Dr. Holland reviews the medications. She indicated that said we didn't review them. I let her know I review the medications along with Dr Holland during his visit. She said he is forgetful. Patient came back on phone. I suggested to patient if he is unable to remember or pronouce the medications. Just to bring I a detailed list or the medications bottles of ALL his medication. He voiced understanding. Patient also has an upcoming appointment with Felecia. He will bring his medication list and discuss starting the new medication. SHILPA Vyas Jeffrey A, MD 04/24/2024 2:59 PM Signed Noted. Allergies As of Date: 04/20/2024 (No Known Allergies) Date Reviewed: 04/19/2024 Reviewed by: Yrn Holland MD - Fully Assessed Reason for Visit: Results [95] Prescriptions as of 04/24/2024 - venlafaxine ER (EFFEXOR XR) 150 mg 24 hr capsule Take 2 capsules by mouth daily at bedtime. Per Psych, Dr. Barone - mirtazapine (REMERON) 45 mg tablet Take 1 tablet by mouth daily at bedtime. Per Psych, Dr. Barone - OLANZapine (ZYPREXA) 5 mg tablet Take 2 tablets by mouth daily at bedtime. Per Psych, Dr. Barone - buPROPion XL (WELLBUTRIN XL) 150 mg 24 hr tablet Take 150 mg by mouth once daily. - tamsulosin (FLOMAX) 0.4 mg Take 0.4 mg by mouth once daily. - TURMERIC ORAL Take by mouth. Taking 1000 mg daily - ut-bvg-nkhmf acid-lutein (CENTRUM SILVER) 400-250 mcg chew Take 1 tablet by mouth once daily. 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 Benign non-nodular prostatic hyperplasia withou*01/31/2007 Microscopic hematuria [R31.29] 11/19/2008 Disorder of prostate [N42.9] 05/07/2016 Osteoarthritis of finger of right hand [M19.041]01/28/2017 AK (actinic keratosis) [L57.0] 01/28/2017 Screening for colon cancer [Z12.11] 01/28/2017 Hydrocele, right [N43.3] 02/15/2018 Elevated hemoglobin A1c [R73.09] 02/16/2018 Encounter for Medicare annual wellness exam [Z0*02/26/2021 Dyslipidemia [E78.5] 02/27/2021 Major depressive disorder, recurrent episode, s*07/30/2021 Severe anxiety [F41.9] 09/16/2021 Medication management [Z79.899] 03/16/[address] [Z78.9] 03/27/2022 Advance directive discussed with patient [Z71.8*03/27/2022 Bilateral carotid artery stenosis [I65.23] 07/02/2022 Oropharyngeal dysphagia [R13.12] 03/10/2023 Encounter Status:Closed by YRN HOLLAND on 04/24/24 Normal [facility] Comprehensive metabolic 2000 panelon 04-20-2024 Albumin [Mass/Vol] 4.4 g/dL 3.9 - 4.9 g/dL [facility] ALP [Catalytic activity/Vol] 125 U/L High 38 - 113 U/L [facility] ALT [Catalytic activity/Vol] 28 U/L 10 - 54 U/L [facility] Anion gap [Moles/Vol] 11 mmol/L 8 - 15 mmol/L [facility] AST [Catalytic activity/Vol] 21 U/L 14 - 40 U/L [facility] Bilirubin [Mass/Vol] mg/dL Low 0.2 - 1 .3 mg/dL [facility] Calcium [Mass/Vol] 9.4 mg/dL 8.5 - 10. 2 mg/dL [facility] Chloride [Moles/Vol] 103 mmol/L 98 - 10 7 mmol/L [facility] CO2 [Moles/Vol] 27 mmol/L 22 - 30 mmol/L [facility] Creatinine [Mass/Vol] 1.07 mg/dL 0.73 - 1.22 mg/dL [facility] GFR/1.73 sq M.predicted among non-blacks MDRD (S/P/Bld) [Vol rate/Area] 76 mL/min/{1.73_m2} - PINF [facility] Comment on above: Estimated Glomerular Filtration Rate (eGFR) is calculated using the 2020 CKD-EPI creatinine equation. This equation utilizes serum creatinine, sex, and age as parameters. The creatinine assay has traceable calibration to isotope dilution-mass spectrometry. Refer to KDIGO guidelines for clinical interpretation. In patients with unstable renal function, e.g. those with acute kidney injury, the eGFR may not accurately reflect actual GFR. Glucose [Mass/Vol] 96 mg/dL 74 - 99 mg/dL [facility] Comment on above: The [place] Diabete s Association (ADA) provides guidance for cutoff values for fasting glucose and random glucose. The ADA defines fasting as no caloric intake for at least 8 hours. Fasting plasma glucose results between 100 to 125 mg/dL indicate increased risk for diabetes (prediabetes). Fasting plasma glucose results greater than or equal to 126 mg/dL meet the criteria for diagnosis of diabetes. In the absence of unequivocal hyperglycemia, results should be confirmed by repeat testing. In a patient with classic symptoms of hyperglycemia or hyperglycemic crisis, random plasma glucose results greater than or equal to 200 mg/dL meet the criteria for diagnosis of diabetes. Reference: Standards of Medical Care in Diabetes 2016, [place] Diabetes Association. Diabetes Care. 2016.39(Suppl 1). Potassium [Moles/Vol] 4.2 mmol/L 3.7 - 5.1 mmol/L [facility] Protein [Mass/Vol] 7.4 g/dL 6.3 - 8.0 g/dL [facility] Sodium [Moles/Vol] 141 mmol/L 136 - 144 mmol/L [facility] Urea nitrogen [Mass/Vol] 22 mg/dL 9 - 24 mg/dL [facility] LIPID PANEL, NONFASTINGon Cholesterol [Mass/Vol] 258 mg/dL High NINF - 200 mg/dL [facility] Comment on above: <200 mg/dL, Desirabl e 200-239 mg/dL, Borderline high >239 mg/dL, High HDL Cholesterol, Nonfasting 57 mg/dL 39 - PINF mg/dL [facility] Comment on above: 40-59 mg/dL, Accepta ble >59 mg/dL, High: Negative risk factor for coronary heart disease <40 mg/dL, Low: Positive risk factor for coronary heart disease LDL Cholesterol, Nonfasting 179 mg/dL High NINF - 100 mg/dL [facility] Comment on above: <100 mg/dL, Optimal 100-129 mg/dL, Near optimal/above optimal 130-159 mg/dL, Borderline high 160-189 mg/dL, High >189 mg/dL, Very high Secondary prevention optimal LDL Cholesterol levels are recommended to be < 70 mg/dL LDL/HDL Ratio, Nonfasting 3.14 mg/dL High NINF - 2.54 mg/dL [facility] Comment on above: Reference: 1. National Cholesterol Education Program ATP III Guideline At-A-Glance Quick Desk Reference: National Heart, Lung, and Blood [place]. National Institutes of Health. 2001: NIH Publication No. 01-3305. 2. An International Atherosclerosis Society position paper: global recommendations for the management of dyslipidemia: executive summary, Atherosclerosis. 2014: 232(2):410-413. Non HDL Cholesterol, Nonfasting 201 mg/dL High NINF - 130 mg/dL [facility] Comment on above: <130 mg/dL, Optimal 130-159 mg/dL, Near optimal/above optimal 160-189 mg/dL, Borderline high 190-219 mg/dL, High >219 mg/dL, Very high Secondary prevention optimal non HDL Cholesterol levels are recommended to be <100 mg/dL Total Chol/HDL Ratio, Nonfasting 4.53 mg/dL NINF - 5.10 mg/dL [facility] Triglycerides, Nonfasting 110 mg/dL NINF - 150 mg/dL [facility] Comment on above: <150 mg/dL, Normal 150-199 mg/dL, Borderline high 200-499 mg/dL, High >499 mg/dL, Very high VLDL Cholesterol, Nonfasting 22 mg/dL NINF - 30 mg/dL [facility] No Panel Informationon 04-20 Interpretation and review of laboratory results Abnormal [facility] THYROID STIMULATING HORMONEo n 04-20-2024 TSH Qn 2.920 m[IU]/L [facility] TSH Qnon 04-20-2024 Interpretation and review of laboratory results Normal [facility] CBC W Auto Differential pane l (Bld)on 04-19-2024 Basophils (Bld) [#/Vol] 0.05 10*3/uL [facility] Basophils/100 WBC (Bld) 0.8 % [facility] Differential cell count method Nom (Bld) Auto [facility] Eosinophils (Bld) [#/Vol] 0.15 10*3/uL [facility] Eosinophils/100 WBC (Bld) 2.4 % [facility] Erythrocyte distribution width (RBC) [Ratio] 13.6 % 11.5 - 15.0 % [facility] Hematocrit (Bld) [Volume fraction] 43.1 % 39.0 - 51.0 % [facility] Hemoglobin (Bld) [Mass/Vol] 13.8 g/dL 13.0 - 17.0 g/dL [facility] Immature granulocytes (Bld) [#/Vol] [facility] Immature granulocytes/100 WBC (Bld) 0.3 % [facility] Lymphocytes (Bld) [#/Vol] 1.09 10*3/uL [facility] Lymphocytes/100 WBC (Bld) 17.4 % [facility] MCH (RBC) [Entitic mass] 29.5 pg 26.0 - 34.0 pg [facility] MCHC (RBC) [Mass/Vol] 32.0 g/dL 30.5 - 36.0 g/dL [facility] MCV (RBC) [Entitic vol] 92.1 fL 80.0 - 100.0 fL [facility] Monocytes (Bld) [#/Vol] 0.61 10*3/uL [facility] Monocytes/100 WBC (Bld) 9.7 % [facility] Neutrophils (Bld) [#/Vol] 4.35 10*3/uL [facility] Neutrophils/100 WBC (Bld) 69.4 % [facility] Nucleated RBC (Bld) [#/Vol] [facility] Nucleated RBC/100 WBC (Bld) [Ratio] 0.0 % /100 WBC [facility] Platelet mean volume (Bld) [Entitic vol] 9.2 fL 9.0 - 12.7 fL [facility] Platelets (Bld) [#/Vol] 309 10*3/uL [facility] RBC (Bld) [#/Vol] 4.68 10*6/uL 4.20 - 6.0 0 m/uL [facility] WBC (Bld) [#/Vol] 6.27 10*3/uL [facility] Basophils (Bld) [#/Vol] 0.05 10*3/uL Normal <0.11 [facility] Comment on above: Order Comment: Speci men Type: URINE SPECIMEN Ordering Facility: [facility] Address: [address] [place] [address] Performed By: #### 2 4356-8 #### [facility] CLIA [id number] [address] [place] [address] [place] Basophils/100 WBC (Bld) 0.8 % Normal [facility] Comment on above: Order Comment: Speci men Type: URINE SPECIMEN Ordering Facility: [facility] Address: [address] [place] [address] Performed By: #### 2 4356-8 #### [facility] CLIA [id number] [address] [place] [address] [place] Differential cell count method Nom (Bld) Auto Normal [facility] Comment on above: Order Comment: Speci men Type: URINE SPECIMEN Ordering Facility: [facility] Address: [address] [place] [address] Performed By: #### 2 4356-8 #### [facility] CLIA [id number] [address] [place] [address] [place] Eosinophils (Bld) [#/Vol] 0.15 10*3/uL Normal <0.46 [facility] Comment on above: Order Comment: Speci men Type: URINE SPECIMEN Ordering Facility: [facility] Address: [address] [place] [address] Performed By: #### 2 4356-8 #### [facility] CLIA [id number] [address] [place] [address] [place] Eosinophils/100 WBC (Bld) 2.4 % Normal [facility] Comment on above: Order Comment: Speci men Type: URINE SPECIMEN Ordering Facility: [facility] Address: [address] [place] [address] Performed By: #### 2 4356-8 #### [facility] CLIA [id number] [address] [place] [address] [place] Erythrocyte distribution width (RBC) [Ratio] 13.6 % Normal 11.5-15.0 [facility] Comment on above: Order Comment: Speci men Type: URINE SPECIMEN Ordering Facility: [facility] Address: [address] [place] [address] Performed By: #### 2 4356-8 #### [facility] CLIA [id number] [address] [place] [address] [place] Hematocrit (Bld) [Volume fraction] 43.1 % Normal 39.0-51.0 [facility] Comment on above: Order Comment: Speci men Type: URINE SPECIMEN Ordering Facility: [facility] Address: [address] [place] [address] Performed By: #### 2 4356-8 #### [facility] CLIA [id number] [address] [place] [address] [place] Hemoglobin (Bld) [Mass/Vol] 13.8 g/dL Normal 13.0-17.0 [facility] Comment on above: Order Comment: Speci men Type: URINE SPECIMEN Ordering Facility: [facility] Address: [address] [place] [address] Performed By: #### 2 4356-8 #### [facility] CLIA [id number] [address] [place] [address] [place] Immature granulocytes (Bld) [#/Vol] 10*3/uL Normal <0.10 [facility] Comment on above: Order Comment: Speci men Type: URINE SPECIMEN Ordering Facility: [facility] Address: [address] [place] [address] Performed By: #### 2 4356-8 #### [facility] CLIA [id number] [address] [place] [address] [place] Immature granulocytes/100 WBC (Bld) 0.3 % Normal [facility] Comment on above: Order Comment: Speci men Type: URINE SPECIMEN Ordering Facility: [facility] Address: [address] [place] [address] Performed By: #### 2 4356-8 #### [facility] CLIA [id number] [address] [place] [address] [place] Lymphocytes (Bld) [#/Vol] 1.09 10*3/uL Normal 1.00-4.00 [facility] Comment on above: Order Comment: Speci men Type: URINE SPECIMEN Ordering Facility: [facility] Address: [address] [place] [address] Performed By: #### 2 4356-8 #### [facility] CLIA [id number] [address] [place] [address] [place] Lymphocytes/100 WBC (Bld) 17.4 % Normal [facility] Comment on above: Order Comment: Speci men Type: URINE SPECIMEN Ordering Facility: [facility] Address: [address] [place] [address] Performed By: #### 2 4356-8 #### [facility] CLIA [id number] [address] [place] [address] [place] MCH (RBC) [Entitic mass] 29.5 pg Normal 26.0-34.0 [facility] Comment on above: Order Comment: Speci men Type: URINE SPECIMEN Ordering Facility: [facility] Address: [address] [place] [address] Performed By: #### 2 4356-8 #### [facility] CLIA [id number] [address] [place] [address] [place] MCHC (RBC) [Mass/Vol] 32.0 g/dL Normal 30.5-36.0 [facility] Comment on above: Order Comment: Speci men Type: URINE SPECIMEN Ordering Facility: [facility] Address: [address] [place] [address] Performed By: #### 2 4356-8 #### [facility] CLIA [id number] [address] [place] [address] [place] MCV (RBC) [Entitic vol] 92.1 fL Normal 80.0-100.0 [facility] Comment on above: Order Comment: Speci men Type: URINE SPECIMEN Ordering Facility: [facility] Address: [address] [place] [address] Performed By: #### 2 4356-8 #### [facility] CLIA [id number] [address] [place] [address] [place] Monocytes (Bld) [#/Vol] 0.61 10*3/uL Normal <0.87 [facility] Comment on above: Order Comment: Speci men Type: URINE SPECIMEN Ordering Facility: [facility] Address: [address] [place] [address] Performed By: #### 2 4356-8 #### [facility] CLIA [id number] [address] [place] [address] [place] Monocytes/100 WBC (Bld) 9.7 % Normal [facility] Comment on above: Order Comment: Speci men Type: URINE SPECIMEN Ordering Facility: [facility] Address: [address] [place] [address] Performed By: #### 2 4356-8 #### [facility] CLIA [id number] [address] [place] [address] [place] Neutrophils (Bld) [#/Vol] 4.35 10*3/uL Normal 1.45-7.50 [facility] Comment on above: Order Comment: Speci men Type: URINE SPECIMEN Ordering Facility: [facility] Address: [address] [place] [address] Performed By: #### 2 4356-8 #### [facility] CLIA [id number] [address] [place] [address] [place] Neutrophils/100 WBC (Bld) 69.4 % Normal [facility] Comment on above: Order Comment: Speci men Type: URINE SPECIMEN Ordering Facility: [facility] Address: [address] [place] [address] Performed By: #### 2 4356-8 #### [facility] CLIA [id number] [address] [place] [address] [place] Nucleated RBC (Bld) [#/Vol] 10*3/uL Normal <0.01 [facility] Comment on above: Order Comment: Speci men Type: URINE SPECIMEN Ordering Facility: [facility] Address: [address] [place] [address] Performed By: #### 2 4356-8 #### [facility] CLIA [id number] [address] [place] [address] [place] Nucleated RBC/100 WBC (Bld) [Ratio] 0.0 /100 WBC Normal [facility] Comment on above: Order Comment: Speci men Type: URINE SPECIMEN Ordering Facility: [facility] Address: [address] [place] [address] Performed By: #### 2 4356-8 #### [facility] CLIA [id number] [address] [place] [address] [place] Platelet mean volume (Bld) [Entitic vol] 9.2 fL Normal 9.0-12.7 [facility] Comment on above: Order Comment: Speci men Type: URINE SPECIMEN Ordering Facility: [facility] Address: [address] [place] [address] Performed By: #### 2 4356-8 #### [facility] CLIA [id number] [address] [place] [address] [place] Platelets (Bld) [#/Vol] 309 10*3/uL Normal 150-400 [facility] Comment on above: Order Comment: Speci men Type: URINE SPECIMEN Ordering Facility: [facility] Address: [address] [place] [address] Performed By: #### 2 4356-8 #### [facility] CLIA [id number] [address] [place] [address] [place] RBC (Bld) [#/Vol] 4.68 10*6/uL Normal 4.20-6.00 [facility] Comment on above: Order Comment: Speci men Type: URINE SPECIMEN Ordering Facility: [facility] Address: [address] [place] [address] Performed By: #### 2 4356-8 #### [facility] CLIA [id number] [address] [place] [address] [place] WBC (Bld) [#/Vol] 6.27 10*3/uL Normal 3.70-11.00 [facility] Comment on above: Order Comment: Speci men Type: URINE SPECIMEN Ordering Facility: [facility] Address: [address] [place] [address] Performed By: #### 2 4356-8 #### [facility] CLIA [id number] [address] [place] [address] OF [place] CNOVon 04-19-2024 [facility] CRISSY RICHTER ([id number]) 1955 M Date Time Provider Department 04/19/24 2:00 PM YRN HOLLAND FAMPWS During your visit today, we recorded the following information about you: Pulse Respiration Blood pressure Weight 88/minute 18/minute 156/94 77.6 kg Height 1.765 m Yrn Holland MD 04/20/2024 12:53 PM Signed Crissy Richter is a 68 year old male here for a Medicare wellness visit. Medicare Health Risk Assessment General Health Good Exercise: Minutes/Day 80 min Exercise: Days/Week 3 days Alcohol: Daily Use Never Alcohol: Drinks/Day Patient does not drink Alcohol: 6 or more drinks Never Feel off balance Yes Concerns: Teeth/Dentures No Concerns: Sexual function No Troubled by feelings Anxious Frequency: Eating healthy diet Several days ADLs requiring help None of the above Safety precautions in home/vehicle Yes (no grab bars in bathroom) Smoke, vape, chews tobacco No Difficulty hearing Yes Difficulty seeing No Current Providers Specialists: I have reviewed specialist-related care of the patient in the medical record. Current care team: Patient Care Team: Yrn Holland MD as PCP - General (Family Medicine) Dr. Jorge: Urology Dr. Barone: Psych optho Medical/Family history review Reviewed and updated problem list, medical/surgical/family/soc ial history, medications, and allergies. Opioid use review Opioid Medications (last 90 days) No data to display Depression Screening PHQ-2 Score: 1 Cognitive screening Score: 5 Cognitive screening reviewed and No further action needed (score 3-5). Functional Observation Was the patient's Timed Up AND Go test unsteady or >= 12 seconds? No Advance Care Planning Surrogate decision maker and/or advance care plan documented Measurements BP 162/84 Pulse 88 Resp 18 Ht 176.5 cm (5' 9.5") Wt 77.6 kg (171 lb) BMI 24.89 kg/m? Vision Screening: Follows with optometry/ophthalmology Assessment/Plan Medicare annual wellness visit, subsequent (Z00.00) - Counseled on healthy diet and regular exercise - Fall avoidance information provided - Personalized prevention plan provided See Below Chief Complaint Patient presents with: Medicare Wellness Exam HPI Crissy Richter is a 68 year old male who presents here today for Chronic Medical Conditions. and Medicare Annual Visit. Patient with Hx of major depression, sever anxiety seeing psych, dyslipidemia, elevated A1c, BPH as well as those reviewed and addressed below and in ROS. Patient indicated that he thinks he is taking Effexor (2) tablets at bedtime. Patient sees Dr. Jorge last visit - 06/2023 Past medical history, appointments, medications, allergies reviewed. Previous Medical History PAST MEDICAL HISTORY Diagnosis Date Advance directive discussed with patient 03/27/2022 Discussed 03/2022: patient to bring in copies [place] (actinic keratosis) 01/28/2017 tearted with cryo 01/28/2017 Benign non-nodular prostatic hyperplasia without lower urinary tract symptoms 01/31/[address] White yearly and gets PSA's and prostate exam. 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 Internal hemorrhoids without mention of complication Living will in place 03/27/2022 DPA: Tiffanie () Major depressive disorder, recurrent episode, severe with anxious distress (HCC) 07/30/2021 Seeing Psychiatry, Lizabeth Baumann Medicare annual wellness visit, initial 02/26/2021 Medicare Part b: Last done: 02/26/2021 Microscopic hematuria 11/19/2008 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 Esteban, negative, recheck in 10 yrs COLONOSCOPY FLX DX W/COLLJ SPEC WHEN PFRMD 11/02/2008 repeat 10 yrs FECAL OCCULT BLOOD TEST 02/03/2017 Negative Family History FAMILY HISTORY Problem Relation Age of Onset Cancer Mother pancreas, with mets to lungs, passed 05/2016 other (parkinson's disease) Father passed 2006 Patient Allergies ALLERGIES No Known Allergies Current Medications Current Outpatient Medications on File Prior to Visit Medicat (more content not included)... Normal [facility] Comprehensive metabolic 2000 panelon 04-19-2024 Albumin [Mass/Vol] 4.4 g/dL Normal 3.9-4.9 [facility] Comment on above: Order Comment: Speci men Type: URINE SPECIMEN Ordering Facility: [facility] Address: [address] [place] [address] Performed By: #### 2 4356-8 #### [facility] CLIA [id number] [address] [place] [address] [place] ALP [Catalytic activity/Vol] 125 U/L High 38-113 [facility] Comment on above: Order Comment: Speci men Type: URINE SPECIMEN Ordering Facility: [facility] Address: [address] [place] [address] Performed By: #### 2 4356-8 #### [facility] CLIA [id number] [address] [place] [address] [place] ALT [Catalytic activity/Vol] 28 U/L Normal 10-54 [facility] Comment on above: Order Comment: Speci men Type: URINE SPECIMEN Ordering Facility: [facility] Address: [address] [place] [address] Performed By: #### 2 4356-8 #### [facility] CLIA [id number] [address] [place] [address] [place] Anion gap [Moles/Vol] 11 mmol/L Normal 8-15 [facility] Comment on above: Order Comment: Speci men Type: URINE SPECIMEN Ordering Facility: [facility] Address: [address] [place] [address] Performed By: #### 2 4356-8 #### [facility] CLIA [id number] [address] [place] [address] [place] AST [Catalytic activity/Vol] 21 U/L Normal 14-40 [facility] Comment on above: Order Comment: Speci men Type: URINE SPECIMEN Ordering Facility: [facility] Address: [address] [place] [address] Performed By: #### 2 4356-8 #### [facility] CLIA [id number] [address] [place] [address] [place] Bilirubin [Mass/Vol] mg/dL Low 0.2-1.3 [facility] Comment on above: Order Comment: Speci men Type: URINE SPECIMEN Ordering Facility: [facility] Address: [address] [place] [address] Performed By: #### 2 4356-8 #### [facility] CLIA [id number] [address] [place] [address] [place] Calcium [Mass/Vol] 9.4 mg/dL Normal 8.5-10.2 [facility] Comment on above: Order Comment: Speci men Type: URINE SPECIMEN Ordering Facility: [facility] Address: [address] [place] [address] Performed By: #### 2 4356-8 #### [facility] CLIA [id number] [address] [place] [address] [place] Chloride [Moles/Vol] 103 mmol/L Normal 98-107 [facility] Comment on above: Order Comment: Speci men Type: URINE SPECIMEN Ordering Facility: [facility] Address: [address] [place] [address] Performed By: #### 2 4356-8 #### [facility] CLIA [id number] [address] [place], [place] [address] [place] CO2 [Moles/Vol] 27 mmol/L Normal 22-30 [facility] Comment on above: Order Comment: Speci men Type: URINE SPECIMEN Ordering Facility: [facility] Address: [address] [place] [address] Performed By: #### 2 4356-8 #### [facility] CLIA [id number] [address] [place], [place] [address] [place] [facility] Creatinine [Mass/Vol] 1.07 mg/dL Normal 0.73-1.22 [facility] Comment on above: Order Comment: Susan swanson Type: URINE SPECIMEN Ordering Facility: [facility] Address: [address] [place] [address] Performed By: #### 2 4356-8 #### [facility] CLIA [id number] [address] [place] [address] [place] Creatinine and Glomerular filtration rate.predicted panel (S/P/Bld) 76 mL/min/1.73m??? Normal >=60 [facility] Comment on above: Order Comment: Susan swanson Type: URINE SPECIMEN Ordering Facility: [facility] Address: [address] [place] [address] Result Comment: Ofe mated Glomerular Filtration Rate (eGFR) is calculated using the 2020 CKD-EPI creatinine equation. This equation utilizes serum creatinine, sex, and age as parameters. The creatinine assay has traceable calibration to isotope dilution-mass spectrometry. Refer to KDIGO guidelines for clinical interpretation. In patients with unstable renal function, e.g. those with acute kidney injury, the eGFR may not accurately reflect actual GFR. Performed By: #### 2 4356-8 #### [facility] CLIA [id number] [address] [place] [address] [place] Glucose [Mass/Vol] 96 mg/dL Normal 74-99 [facility] Comment on above: Order Comment: Susan swanson Type: URINE SPECIMEN Ordering Facility: [facility] Address: [address] [place] [address] Result Comment: The [place] Diabetes Association (ADA) provides guidance for cutoff values for fasting glucose and random glucose. The ADA defines fasting as no caloric intake for at least 8 hours. Fasting plasma glucose results between 100 to 125 mg/dL indicate increased risk for diabetes (prediabetes). Fasting plasma glucose results greater than or equal to 126 mg/dL meet the criteria for diagnosis of diabetes. In the absence of unequivocal hyperglycemia, results should be confirmed by repeat testing. In a patient with classic symptoms of hyperglycemia or hyperglycemic crisis, random plasma glucose results greater than or equal to 200 mg/dL meet the criteria for diagnosis of diabetes. Reference: Standards of Medical Care in Diabetes 2016, [place] Diabetes Association. Diabetes Care. 2016.39(Suppl 1). Performed By: #### 2 4356-8 #### [facility] CLIA [id number] [address] [place] [address] [place] Potassium [Moles/Vol] 4.2 mmol/L Normal 3.7-5.1 [facility] Comment on above: Order Comment: Speci men Type: URINE SPECIMEN Ordering Facility: [facility] Address: [address] [place] [address] Performed By: #### 2 4356-8 #### [facility] CLIA [id number] [address] [place] [address] [place] Protein [Mass/Vol] 7.4 g/dL Normal 6.3-8.0 [facility] Comment on above: Order Comment: Speci men Type: URINE SPECIMEN Ordering Facility: [facility] Address: [address] [place] [address] Performed By: #### 2 4356-8 #### [facility] CLIA [id number] [address] [place] [address] [place] Sodium [Moles/Vol] 141 mmol/L Normal 136-144 [facility] Comment on above: Order Comment: Speci men Type: URINE SPECIMEN Ordering Facility: [facility] Address: [address] [place] [address] Performed By: #### 2 4356-8 #### [facility] CLIA [id number] [address] [place] [address] [place] Urea nitrogen [Mass/Vol] 22 mg/dL Normal 9-24 [facility] Comment on above: Order Comment: Speci men Type: URINE SPECIMEN Ordering Facility: [facility] Address: [address] [place] [address] Performed By: #### 2 4356-8 #### [facility] CLIA [id number] [address] [place] [address] [place] HbA1c (Bld)on 04-19-2024 Average glucose Estimated from glycated hemoglobin (Bld) [Mass/Vol] 108 mg/dL [facility] Comment on above: eAG: (Estimated aver age glucose) is a calculated value from HgbA1c and is solar sales representative of the average blood glucose level in the last 2-3 month period. HbA1c (Bld) [Mass fraction] 5.4 % 4.3 - 5.6 % [facility] Comment on above: [place] Diabetes As sociation guidelines indicate that patients with HgbA1c in the range 5.7-6.4% are at increased risk for development of diabetes, and intervention by lifestyle modification may be beneficial. HgbA1c greater or equal to 6.5% is considered diagnostic of diabetes. [facility] Average glucose Estimated from glycated hemoglobin (Bld) [Mass/Vol] 108 mg/dL Normal [facility] Comment on above: Order Comment: Susan swanson Type: BLOOD SPECIMEN Ordering Facility: [facility] Address: [address] [place] [address] Result Comment: eAG: (Estimated average glucose) is a calculated value from HgbA1c and is solar sales representative of the average blood glucose level in the last 2-3 month period. Performed By: #### 5 5454-3 #### [facility] CLIA [id number] [address] [place] [address] [place] HbA1c (Bld) [Mass fraction] 5.4 % Normal 4.3-5.6 [facility] Comment on above: Order Comment: Susan swanson Type: BLOOD SPECIMEN Ordering Facility: [facility] Address: [address] [place] [address] Result Comment: [place] Diabetes Association guidelines indicate that patients with HgbA1c in the range 5.7-6.4% are at increased risk for development of diabetes, and intervention by lifestyle modification may be beneficial. HgbA1c greater or equal to 6.5% is considered diagnostic of diabetes. Performed By: #### 5 5454-3 #### [facility] CLIA [id number] [address] [place] [address] [place] LIPID PANEL, NONFASTINGon Cholesterol [Mass/Vol] 258 mg/dL High <200 [facility] Comment on above: Order Comment: Speci men Type: URINE SPECIMEN Ordering Facility: [facility] Address: [address] [place] [address] Result Comment: <200 mg/dL, Desirable 200-239 mg/dL, Borderline high >239 mg/dL, High Performed By: #### 2 4356-8 #### [facility] CLIA [id number] [address] [place] [address] [place] HDL CHOLESTEROL, NF 57 mg/dL Normal >39 [facility] Comment on above: Order Comment: Speci men Type: URINE SPECIMEN Ordering Facility: [facility] Address: [address] [place] [address] Result Comment: 40-5 9 mg/dL, Acceptable >59 mg/dL, High: Negative risk factor for coronary heart disease <40 mg/dL, Low: Positive risk factor for coronary heart disease Performed By: #### 2 4356-8 #### [facility] CLIA [id number] [address] [place] [address] [place] LDL CHOLESTEROL, NF 179 mg/dL High <100 [facility] Comment on above: Order Comment: Speci men Type: URINE SPECIMEN Ordering Facility: [facility] Address: [address] [place] [address] Result Comment: <100 mg/dL, Optimal 100-129 mg/dL, Near optimal/above optimal 130-159 mg/dL, Borderline high 160-189 mg/dL, High >189 mg/dL, Very high Secondary prevention optimal LDL Cholesterol levels are recommended to be < 70 mg/dL Performed By: #### 2 4356-8 #### [facility] CLIA [id number] [address] [place] [address] [place] LDL/HDL RATIO, NF 3.14 mg/dL High <2.54 [facility] Comment on above: Order Comment: Speci men Type: URINE SPECIMEN Ordering Facility: [facility] Address: [address] [place] [address] Result Comment: Yohan mayers: 1. National Cholesterol Education Program ATP III Guideline At-A-Glance Quick Desk Reference: National Heart, Lung, and Blood [place]. National Institutes of Health. 2001: NIH Publication No. 01-3305. 2. An International Atherosclerosis Society position paper: global recommendations for the management of dyslipidemia: executive summary, Atherosclerosis. 2014: 232(2):410-413. Performed By: #### 2 4356-8 #### [facility] CLIA [id number] [address] [place] [address] [place] NON HDL CHOL, NF 201 mg/dL High <130 [facility] Comment on above: Order Comment: Speci men Type: URINE SPECIMEN Ordering Facility: [facility] Address: [address] [place] [address] Result Comment: <130 mg/dL, Optimal 130-159 mg/dL, Near optimal/above optimal 160-189 mg/dL, Borderline high 190-219 mg/dL, High >219 mg/dL, Very high Secondary prevention optimal non HDL Cholesterol levels are recommended to be <100 mg/dL Performed By: #### 2 4356-8 #### [facility] CLIA [id number] [address] [place] [address] [place] T CHOL/HDL RATIO NF 4.53 mg/dL Normal <5.10 [facility] Comment on above: Order Comment: Speci men Type: URINE SPECIMEN Ordering Facility: [facility] Address: [address] [place] [address] Performed By: #### 2 4356-8 #### [facility] CLIA [id number] [address] [place] [address] [place] TRIGLYCERIDES, NF 110 mg/dL Normal <150 [facility] Comment on above: Order Comment: Speci men Type: URINE SPECIMEN Ordering Facility: [facility] Address: [address] [place] [address] Result Comment: <150 mg/dL, Normal 150-199 mg/dL, Borderline high 200-499 mg/dL, High >499 mg/dL, Very high Performed By: #### 2 4356-8 #### [facility] CLIA [id number] [address] [place] [address] [place] VLDL CHOLESTEROL, NF 22 mg/dL Normal <30 [facility] Comment on above: Order Comment: Speci men Type: URINE SPECIMEN Ordering Facility: [facility] Address: [address] [place] [address] Performed By: #### 2 4356-8 #### [facility] CLIA [id number] [address] [place] [address] [place] TSH SerPl-aCncon 04-19-2024 TSH Qn 2.920 m[IU]/L Normal 0.270-4.200 [facility] Comment on above: Order Comment: Speci men Type: URINE SPECIMEN Ordering Facility: [facility] Address: [address] [place] [address] Performed By: #### 2 4356-8 #### [facility] CLIA [id number] [address] [place] [address] [place] Urinalysis complete panel (U )on 04-19-2024 Bacteria LM.HPF (Urine sed) [#/Area] Negative Negative /HPF [facility] Bilirubin Ql (U) Negative Negative [facility] Clarity (Unsp spec) Clear Clear [facility] Color (U) Yellow Yellow [facility] Epithelial cells LM.HPF (Urine sed) [#/Area] None Seen /HPF [facility] Glucose Test strip (U) [Mass/Vol] Negative Negative [facility] Hemoglobin Ql (U) Negative Negative [facility] Hyaline casts (Urine sed) [#/Area] 0 /[LPF] 0 /LPF [facility] Ketones Ql (U) Negative Negative [facility] Leukocyte [facility] Test strip Ql (U) Negative Negative [facility] Nitrite Ql (U) Negative Negative [facility] pH (U) 5.5 [pH] NINF - 8.5 [facility] Protein (U) [Mass/Vol] Negative Negative Cl [facility] RBC LM.HPF (Urine sed) [#/Area] 0-2 /HPF 0-2 /HPF [facility] Specific gravity (U) [Rel density] 1.026 1.005 - 1.030 [facility] Urobilinogen Ql (U) 0.2 EU/dL 0.2-1.0 EU/dL [facility] WBC LM.HPF (Urine sed) [#/Area] 0-5 /HPF 0-5 /HPF [facility] This test was develo ped and its performance characteristics determined by [facility]'s [facility] [place] ([facility]). It has not been cleared or approved by the FDA. -[facility] is regulated under CLIA as qualified to perform high-complexity testing. This test is used for clinical purposes. It should not be regarded as investigational or for research. [facility] Bacteria LM.HPF (Urine sed) [#/Area] Negative Normal Negative [facility] Comment on above: Order Comment: Speci men Type: URINE SPECIMEN Ordering Facility: [facility] Address: [address] [place] [address] Performed By: #### 2 4356-8 #### [facility] CLIA [id number] [address] [place] [address] [place] Bilirubin Ql (U) Negative Normal Negative [facility] Comment on above: Order Comment: Speci men Type: URINE SPECIMEN Ordering Facility: [facility] Address: [address] [place] [address] Performed By: #### 2 4356-8 #### [facility] CLIA [id number] [address] [place] [address] [place] Clarity (Unsp spec) Clear Normal Clear [facility] Comment on above: Order Comment: Speci men Type: URINE SPECIMEN Ordering Facility: [facility] Address: [address] [place] [address] Performed By: #### 2 4356-8 #### [facility] CLIA [id number] [address] [place] [address] [place] Color (U) Yellow Normal Yellow [facility] Comment on above: Order Comment: Speci men Type: URINE SPECIMEN Ordering Facility: [facility] Address: [address] [place] [address] Performed By: #### 2 4356-8 #### [facility] CLIA [id number] [address] [place] [address] [place] Epithelial cells LM.HPF (Urine sed) [#/Area] None Seen Normal [facility] Comment on above: Order Comment: Speci men Type: URINE SPECIMEN Ordering Facility: [facility] Address: [address] [place] [address] Performed By: #### 2 4356-8 #### [facility] CLIA [id number] [address] [place] [address] [place] Glucose Test strip (U) [Mass/Vol] Negative Normal Negative [facility] Comment on above: Order Comment: Speci men Type: URINE SPECIMEN Ordering Facility: [facility] Address: [address] [place] [address] Performed By: #### 2 4356-8 #### [facility] CLIA [id number] [address] [place] [address] [place] Hemoglobin Ql (U) Negative Normal Negative [facility] Comment on above: Order Comment: Speci men Type: URINE SPECIMEN Ordering Facility: [facility] Address: [address] [place] [address] Performed By: #### 2 4356-8 #### [facility] CLIA [id number] [address] [place] [address] [place] Hyaline casts (Urine sed) [#/Area] 0 /[LPF] Normal 0 /LPF [facility] Comment on above: Order Comment: Speci men Type: URINE SPECIMEN Ordering Facility: [facility] Address: [address] [place] [address] Performed By: #### 2 4356-8 #### [facility] CLIA [id number] [address] [place] [address] [place] Ketones Ql (U) Negative Normal Negative [facility] Comment on above: Order Comment: Speci men Type: URINE SPECIMEN Ordering Facility: [facility] Address: [address] [place] [address] Performed By: #### 2 4356-8 #### [facility] CLIA [id number] [address] [place] [address] [place] Leukocyte esterase Test strip Ql (U) Negative Normal Negative [facility] Comment on above: Order Comment: Speci men Type: URINE SPECIMEN Ordering Facility: [facility] Address: [address] [place] [address] Performed By: #### 2 4356-8 #### [facility] CLIA [id number] [address] [place] [address] [place] Nitrite Ql (U) Negative Normal Negative [facility] Comment on above: Order Comment: Speci men Type: URINE SPECIMEN Ordering Facility: [facility] Address: [address] [place] [address] Performed By: #### 2 4356-8 #### [facility] CLIA [id number] [address] [place] [address] [place] pH (U) 5.5 [pH] Normal <8.5 [facility] Comment on above: Order Comment: Speci men Type: URINE SPECIMEN Ordering Facility: [facility] Address: [address] [place] [address] Performed By: #### 2 4356-8 #### [facility] CLIA [id number] [address] [place], [place] [address] [place] Protein (U) [Mass/Vol] Negative Normal Negative [facility] Comment on above: Order Comment: Speci men Type: URINE SPECIMEN Ordering Facility: [facility] Address: [address] [place] [address] Performed By: #### 2 4356-8 #### [facility] CLIA [id number] [address] [place] [address] [place] RBC LM.HPF (Urine sed) [#/Area] 0-2 /HPF Normal 0-2 /HPF [facility] Comment on above: Order Comment: Speci men Type: URINE SPECIMEN Ordering Facility: [facility] Address: [address] [place] [address] Performed By: #### 2 4356-8 #### [facility] CLIA [id number] [address] [place] [address] [place] Specific gravity (U) [Rel density] 1.026 Normal 1.005-1.030 [facility] Comment on above: Order Comment: Speci men Type: URINE SPECIMEN Ordering Facility: [facility] Address: [address] [place] [address] Performed By: #### 2 4356-8 #### [facility] CLIA [id number] [address] [place] [address] [place] Urobilinogen Ql (U) 0.2 EU/dL Normal 0.2-1.0 EU/dL [facility] Comment on above: Order Comment: Speci men Type: URINE SPECIMEN Ordering Facility: [facility] Address: [address] [place] [address] Performed By: #### 2 4356-8 #### [facility] CLIA [id number] [address] [place] [address] [place] WBC LM.HPF (Urine sed) [#/Area] 0-5 /HPF Normal 0-5 /HPF [facility] Comment on above: Order Comment: Speci men Type: URINE SPECIMEN Ordering Facility: [facility] Address: [address] [place] [address] Performed By: #### 2 4356-8 #### [facility] CLIA [id number] [address] [place] [address] [place] HbA1c (Bld)on 03-31-2023 Average glucose Estimated from glycated hemoglobin (Bld) [Mass/Vol] 117 mg/dL [facility] HbA1c (Bld) [Mass fraction] 5.7 % High 4.3 - 5.6 % [facility] MRI BRAIN WO IVCONon 023 [facility] CBC W Auto Differential pane l (Bld)on 02-02-2023 Basophils (Bld) [#/Vol] 0.05 10*3/uL <0.11 k/uL [facility] Basophils/100 WBC (Bld) 0.9 % [facility] Differential cell count method Nom (Bld) Auto [facility] Eosinophils (Bld) [#/Vol] 0.08 10*3/uL <0.46 k/uL [facility] Eosinophils/100 WBC (Bld) 1.4 % [facility] Erythrocyte distribution width (RBC) [Ratio] 13.9 % 11.5 - 15.0 % [facility] Hematocrit (Bld) [Volume fraction] 43.6 % 39.0 - 51.0 % [facility] Hemoglobin (Bld) [Mass/Vol] 14.2 g/dL 13.0 - 17.0 g/dL [facility] Immature granulocytes (Bld) [#/Vol] <0.10 k/uL [facility] Immature granulocytes/100 WBC (Bld) 0.2 % [facility] Lymphocytes (Bld) [#/Vol] 1.12 10*3/uL 1.00 - 4.00 k/uL [facility] Lymphocytes/100 WBC (Bld) 19.9 % [facility] MCH (RBC) [Entitic mass] 29.3 pg 26.0 - 34.0 pg [facility] MCHC (RBC) [Mass/Vol] 32.6 g/dL 30.5 - 36.0 g/dL [facility] MCV (RBC) [Entitic vol] 90.1 fL 80.0 - 100.0 fL [facility] Monocytes (Bld) [#/Vol] 0.51 10*3/uL <0.87 k/uL [facility] Monocytes/100 WBC (Bld) 9.1 % [facility] Neutrophils (Bld) [#/Vol] 3.85 10*3/uL 1.45 - 7.50 k/uL [facility] Neutrophils/100 WBC (Bld) 68.5 % [facility] Nucleated RBC (Bld) [#/Vol] <0.01 k/uL [facility] Nucleated RBC/100 WBC (Bld) [Ratio] 0.0 /100 WBC [facility] Platelet mean volume (Bld) [Entitic vol] 9.2 fL 9.0 - 12.7 fL [facility] Platelets (Bld) [#/Vol] 285 10*3/uL 150 - 400 k/uL [facility] RBC (Bld) [#/Vol] 4.84 10*6/uL 4.20 - 6.0 0 m/uL [facility] WBC (Bld) [#/Vol] 5.62 10*3/uL 3.70 - 11.00 k/uL [facility] OVA + PARA MICROSCOPICon Ova and parasites identified LM Nom (Unsp spec) No Parasites Seen [facility] Gastrointestinal pathogens i dentified ILIANA+probe Nom (Stl)on 05-20-2022 Campylobacter sp DNA ILIANA+probe Nom (Unsp spec) Not detected Not Detected [facility] Salmonella sp DNA ILIANA+probe Ql (Unsp spec) Not detected Not Detected [facility] Shiga toxin stx gene ILIANA+probe Nom (Unsp spec) Not detected Not Detected [facility] Shigella sp DNA ILIANA+probe Ql (Unsp spec) Not detected Not Detected [facility] C. DIFFICILE TOXIN BY EIAon 05-19-2022 C. difficile toxin A+B IA Ql (Stl) Detected Abnormal Negative for C. difficile toxin [facility] CDIFF PCR W/RFLX EIA IF POSI TIVEon 05-19-2022 C. difficile toxin genes ILIANA+probe Ql (Stl) Positive Abnormal Negative for C. difficile toxin by PCR [facility] XR OR RETROGRADE PYELOGRAMon 05-09-2022 XR OR RETROGRADE PYELOGRAM EXAMINATION: XR OR RETROGRADE PYELOGRAM HISTORY: ORDERING SYSTEM PROVIDED HISTORY: left stent placement, TECHNOLOGIST PROVIDED HISTORY: Illness/Other Reason for exam: left stent placement Encounter Type: Unknown Additional signs and symptoms: Fluoro dose in mGy: 10.67 ORDERING SYSTEM PROVIDED DIAGNOSIS CODES: N20.0 Kidney stone R10.9 Flank pain R74.8 Elevated creatine kinase COMPARISON: CT of the abdomen and pelvis 05/04/2022. TECHNIQUE: Fluoro dose in Ka,r mGy: 10.67. 0.96 minutes fluoroscopy time was provided to Dr. Parada. 17 fluoroscopic images are submitted without immediate interpretation requested. FINDINGS: Images demonstrate axis to the left renal collecting system which is partially opacified on subsequent images and demonstrates [id number] hydronephrosis. Later images demonstrate placement of a left ureteral stent. Left ureteral stone seen on CT is not definitely visible on the submitted images. IMPRESSION: Images from a left retrograde pyelogram demonstrate hydronephrosis and placement of a ureteral stent. Please correlate with Urology procedure note. [facility] Workstation ID: [id number] Dictated by: HERMILA WARREN on WedMay 12, 2022 8:05:21 AM EST Transcribed by: GUERITA JARQUIN on WedMay 12, 2022 8:45:33 AM EST Finalized by: HERMILA WARREN on WedMay 12, 2022 9:12:43 AM EST Normal [facility] Comment on above: Order Comment: Injur y/Trauma or Illness?:Illness/Other How long have you had these symptoms (acute/chronic)?:Unknown Reason for exam?:left stent placement Type of Exam?:Unknown Additional signs and symptoms?: Fluoro time in minutes:.96 Fluoro dose in mGy?:10.67 Vital Signs Date Time Vital Sign Value Performing Clinician Vernon blackmon 02-05-2025 13:34-0400 Body mass index (BMI) [Ratio] 22.78 kg/m2 Ned Munoz APRN.CNP Work Phone: [facility] 02-05-2025 13:34-0400 Body weight 71 kg Ned Munoz APRN.CNP Work Phone: [facility] 02-05-2025 13:34-0400 Diastolic blood pressure 87 mm[Hg] Ned Munoz APRN.CNP Work Phone: [facility] 02-05-2025 13:34-0400 Heart rate 90 /min Ned Munoz APRN.CNP Work Phone: [facility] 02-05-2025 13:34-0400 Systolic blood pressure 138 mm[Hg] Ned Munoz APRN.CNP Work Phone: [facility] 11-20-2024 11:03-0400 Body mass index (BMI) [Ratio] 23.23 kg/m2 Yrn Holland MD Work Phone: [facility] 11-20-2024 11:03-0400 Body weight 72.39 kg Yrn Holland MD Work Phone: [facility] 11-20-2024 11:03-0400 Diastolic blood pressure 74 mm[Hg] Yrn Holland MD Work Phone: [facility] 11-20-2024 11:03-0400 Heart rate 98 /min Yrn Holland MD Work Phone: [facility] 11-20-2024 11:03-0400 Respiratory rate 16 /min Yrn Holland MD Work Phone: [facility] 11-20-2024 11:03-0400 Systolic blood pressure 118 mm[Hg] Yrn Holland MD Work Phone: [facility] 05-10-2024 10:12-0500 Diastolic blood pressure 77 mm[Hg] Felecia HILARIO-C Work Phone: [facility] 05-10-2024 10:12-0500 Systolic blood pressure 117 mm[Hg] Felecia HILARIO-C Work Phone: [facility] 05-10-2024 10:07-0500 Heart rate 89 /min Felecia Quiroz PA-C Work Phone: [facility] 05-10-2024 09:56-0500 Body mass index (BMI) [Ratio] 25.33 kg/m2 Felecia HILARIO-C Work Phone: [facility] 05-10-2024 09:56-0500 Body temperature 97.11 [degF] Felecia HILARIO-C Work Phone: [facility] 05-10-2024 09:56-0500 Body weight 78.93 kg Felecia Quiroz PA-C Work Phone: [facility] 05-10-2024 09:56-0500 Respiratory rate 18 /min Felecia Quiroz PA-C Work Phone: [facility] 05-10-2024 09:56-0500 SaO2% (BldA) [Mass fraction] 99 % Felecia Quiroz PA-C Work Phone: [facility] 04-19-2024 15:10-0500 Diastolic blood pressure 94 mm[Hg] Yrn Holland MD Work Phone: [facility] 04-19-2024 15:10-0500 Systolic blood pressure 156 mm[Hg] Yrn Holland MD Work Phone: [facility] 04-19-2024 14:16-0500 Body height 176.5 cm Ynr Holland MD Work Phone: [facility] 04-19-2024 14:16-0500 Body mass index (BMI) [Ratio] 24.89 kg/m2 Yrn Holland MD Work Phone: [facility] 04-19-2024 14:16-0500 Body weight 77.56 kg Yrn Holland MD Work Phone: [facility] 04-19-2024 14:16-0500 Heart rate 88 /min Yrn Holland MD Work Phone: [facility] 04-19-2024 14:16-0500 Respiratory rate 18 /min Yrn Holland MD Work Phone: [facility] 03-31-2023 13:51-0500 Diastolic blood pressure 82 mm[Hg] Yrn Holland MD Work Phone: [facility] 03-31-2023 13:51-0500 Systolic blood pressure 128 mm[Hg] Yrn Holland MD Work Phone: [facility] 03-31-2023 13:02-0500 Body height 176.5 cm Yrn Holland MD Work Phone: [facility] 03-31-2023 13:02-0500 Body weight 76.66 kg Yrn Holland MD Work Phone: [facility] 03-31-2023 13:02-0500 Heart rate 86 /min Yrn Holland MD Work Phone: [facility] 03-31-2023 13:02-0500 Respiratory rate 18 /min Yrn Holland MD Work Phone: [facility] 02-02-2023 15:14-0400 Diastolic blood pressure 84 mm[Hg] Yrn Holland MD Work Phone: [facility] 02-02-2023 15:14-0400 Systolic blood pressure 144 mm[Hg] Yrn Holland MD Work Phone: [facility] 02-02-2023 14:33-0400 Body weight 75.3 kg Yrn Holland MD Work Phone: [facility] 02-02-2023 14:33-0400 Heart rate 82 /min Yrn Holland MD Work Phone: [facility] 02-02-2023 14:33-0400 Respiratory rate 18 /min Yrn Holland MD Work Phone: [facility] 07-15-2022 09:49-0500 Body temperature 97.9 [degF] Amalia Athy PA-C Work Phone: [facility] 07-15-2022 09:49-0500 Body weight 74.66 kg Amalia Athy PA-C Work Phone: [facility] 07-15-2022 09:49-0500 Diastolic blood pressure 78 mm[Hg] Amalia Athy PA-C Work Phone: [facility] 07-15-2022 09:49-0500 Heart rate 99 /min Amalia Athy PA-C Work Phone: [facility] 07-15-2022 09:49-0500 Respiratory rate 18 /min Amalia Athy PA-C Work Phone: [facility] 07-15-2022 09:49-0500 SaO2% (BldA) [Mass fraction] 97 % Amalia HILARIO-Danielle Work Phone: [facility] 07-15-2022 09:49-0500 Systolic blood pressure 112 mm[Hg] Amalia Gonzales PA-C Work Phone: [facility] 05-18-2022 10:35-0500 Body temperature 98.6 [degF] Shirley Lemuel APPLICATION COUNSELOR.PLASTIC SHEETS SUPERVISOR Work Phone: [facility] 05-18-2022 10:35-0500 Body weight 76.66 kg Shirley Lemuel APPLICATION COUNSELOR.PLASTIC SHEETS SUPERVISOR Work Phone: [facility] 05-18-2022 10:35-0500 Diastolic blood pressure 82 mm[Hg] Shirley Lemuel APPLICATION COUNSELOR.PLASTIC SHEETS SUPERVISOR Work Phone: [facility] 05-18-2022 10:35-0500 Heart rate 100 /min Shirley Lemuel APPLICATION COUNSELOR.PLASTIC SHEETS SUPERVISOR Work Phone: [facility] 05-18-2022 10:35-0500 Respiratory rate 21 /min Shirley Lemuel APPLICATION COUNSELOR.PLASTIC SHEETS SUPERVISOR Work Phone: [facility] 05-18-2022 10:35-0500 SaO2% (BldA) [Mass fraction] 99 % Shirley Lemuel APPLICATION COUNSELOR.PLASTIC SHEETS SUPERVISOR Work Phone: [facility] 05-18-2022 10:35-0500 Systolic blood pressure 130 mm[Hg] Shirley Lemuel APPLICATION COUNSELOR.PLASTIC SHEETS SUPERVISOR Work Phone: [facility] 03-27-2022 12:21-0400 Diastolic blood pressure 82 mm[Hg] Yrn Holland MD Work Phone: [facility] 03-27-2022 12:21-0400 Systolic blood pressure 132 mm[Hg] Yrn Holland MD Work Phone: [facility] 03-27-2022 12:00-0400 Body height 176.5 cm Yrn Holland MD Work Phone: [facility] 03-27-2022 12:00-0400 Body weight 80.74 kg Yrn Holland MD Work Phone: [facility] 03-27-2022 12:00-0400 Heart rate 90 /min Yrn Holland MD Work Phone: [facility] 03-27-2022 12:00-0400 Respiratory rate 14 /min Yrn Holland MD Work Phone: [facility] Encounters Encounter Date Encounter Type Care Provider Facility Start: 03-21-2025 End: 03-21-2025 ambulatory Mahesh Najera Facility:[facility] Start: 02-07-2025 End: 02-07-2025 Chart abstracting Yrn Holland MD Work Phone: [facility] Comment on above: Abstract (Uro OV not es, Dr. Najera) Start: 02-05-2025 End: 02-05-2025 Patient encounter procedure Ned Munoz APRN.CNP Work Phone: [facility] Comment on above: Periumbilical abdomi nal pain (Primary Dx); Lower abdominal pain Start: 02-05-2025 End: 02-05-2025 ambulatory Yrn Holland MD Work Phone: [facility] Comment on above: Lower Abdomen Pain Start: 12-21-2024 End: 12-25-2024 Telephone encounter Felecia Quiroz PA-C Work Phone: [facility] Comment on above: Results Start: 12-20-2024 End: 12-20-2024 ambulatory YRN HOLLAND Facility:[facility] Start: 11-23-2024 End: 01-19-2025 Telephone encounter Yrn Holland MD Work Phone: [facility] Comment on above: Appointment Start: 11-22-2024 End: 11-23-2024 Follow-up encounter Yrn Holland MD Work Phone: [facility] Comment on above: Results Start: 11-21-2024 End: 11-21-2024 Telephone encounter Yrn Holland MD Work Phone: [facility] Comment on above: Results Start: 11-21-2024 ambulatory YRN HOLLAND Facili ty:[facility] Start: 11-21-2024 End: 11-21-2024 Subsequent hospital visit by physician Graciela [facility] ([facility]) Work Phone: [facility] Comment on above: Transient alteration of awareness [R40.4] Start: 11-20-2024 End: 11-20-2024 Telephone encounter Yrn Holland MD Work Phone: [facility] Comment on above: Patient Update Start: 11-20-2024 End: 11-20-2024 Patient encounter procedure Yrn Holland MD Work Phone: [facility] Comment on above: Transient alteration of awareness (Primary Dx); Shoulder weakness; Nystagmus; Transient global amnesia; Bilateral carotid artery stenosis Start: 11-20-2024 End: 11-20-2024 ambulatory YRN HOLLAND Facility:[facility] Start: 10-30-2024 End: 10-30-2024 Telephone encounter Yrn Holland MD Work Phone: [facility] Comment on above: Patient Question Start: 09-25-2024 End: 09-25-2024 ambulatory Tierney Durand RN Work Phone: [employer] Comment on above: Primary Care Coordin ator- Other Start: 08-16-2024 End: 08-16-2024 ambulatory Tahir Rojas MA [facility] Start: 08-16-2024 End: 08-16-2024 Patient encounter procedure Tahir Rojas MA [facility] Comment on above: Population Health Na vigation Outreach ([employer] high risk attempt 2) Start: 08-10-2024 End: 08-10-2024 ambulatory Dakota Stahl MA [facility] Start: 08-10-2024 End: 08-10-2024 Patient encounter procedure Dakota Stahl MA [facility] Comment on above: Population Health Na vigation Outreach ([employer] High Risk- Attempt 1 ) Start: 07-25-2024 End: 07-25-2024 Chart abstracting Yrn Holland MD Work Phone: [facility] Start: 07-24-2024 End: 07-24-2024 Chart abstracting Yrn Holland MD Work Phone: [facility] Comment on above: Outside [id number] Ordered Start: 07-24-2024 End: 07-24-2024 ambulatory Yrn Holland Facility:[facility] Start: 05-11-2024 End: 05-11-2024 Telephone encounter Yrn Holland MD Work Phone: [facility] Comment on above: Patient Question Start: 05-10-2024 End: 05-10-2024 ambulatory FELECIA QUIROZ Facility:[facility] Start: 05-10-2024 End: 05-10-2024 Office outpatient visit 10 minutes Felecia Quiroz PA-C Work Phone: [facility] Comment on above: Elevated blood press ure reading without diagnosis of hypertension (Primary Dx) Start: 04-20-2024 End: 04-24-2024 Telephone encounter Yrn Holland MD Work Phone: [facility] Comment on above: Results Start: 04-19-2024 End: 04-19-2024 ambulatory YRN HOLLAND [facility] [facility] Start: 04-19-2024 End: 04-19-2024 Patient encounter procedure Yrn Holland MD Work Phone: [facility] Comment on above: Encounter for Medica re annual wellness exam (Primary Dx); Dyslipidemia; Elevated hemoglobin A1c; Bilateral carotid artery stenosis; Major depressive disorder, recurrent episode, severe with anxious distress (HCC); Severe anxiety; Benign non-nodular prostatic hyperplasia without lower urinary tract symptoms; Advance directive discussed with patient; Medication management; Encounter for immunization; Elevated blood pressure reading without diagnosis of hypertension Start: 07-20-2023 Telephone encounter Yrn Holland MD Work Phone: [facility] Comment on above: Question on a vaccin e Start: 07-14-2023 Chart abstracting Yrn stevenson MD Work Phone: [facility] Comment on above: Outside Urology Outside Bult-Noc-XIF Ordered (PSA) Start: 05-12-2023 ambulatory Yrn kennedy MD Work Phone: [facility] Comment on above: Covid Positive Start: 04-01-2023 Telephone encounter Yrn Holland MD Work Phone: [facility] Comment on above: Results Start: 03-31-2023 End: 03-31-2023 Patient encounter procedure Yrn Holland MD Work Phone: [facility] Comment on above: Encounter for Medica re annual wellness exam (Primary Dx); Dyslipidemia; Elevated hemoglobin A1c; Major depressive disorder, recurrent episode, severe with anxious distress (HCC); Severe anxiety; Oropharyngeal dysphagia; Benign non-nodular prostatic hyperplasia without lower urinary tract symptoms; Bilateral carotid artery stenosis; Advance directive discussed with patient; Encounter for immunization Start: 03-10-2023 Telephone encounter Yrn Holland MD Work Phone: [facility] Comment on above: Results Start: 03-04-2023 End: 03-04-2023 Subsequent hospital visit by physician Mri [facility] (I-Stat/1.5t) Work Phone: Radiology Comment on above: Dementia without beh avioral disturbance (HCC) [F03.90] Start: 03-01-2023 ambulatory Renetta Jones RN Work Phone: [employer] Start: 02-25-2023 Telephone encounter Yrn Holland MD Work Phone: [facility] Comment on above: Authorization for MR I and Swallowing Test Patient Update Start: 02-04-2023 Telephone encounter Yrn Holland MD Work Phone: [facility] Comment on above: Results Start: 02-02-2023 End: 02-02-2023 Patient encounter procedure Yrn Holland MD Work Phone: [facility] Comment on above: Dementia without beh avioral disturbance (HCC) (Primary Dx); Memory difficulties; Esophageal dysphagia Start: 07-15-2022 End: 07-15-2022 Patient encounter procedure Amalia Gonzales PA-C Work Phone: [facility] Comment on above: Diarrhea, unspecifie d type (Primary Dx) Start: 07-02-2022 Telephone encounter Felecia cano PA-C Work Phone: [facility] Comment on above: Results Start: 2022 Telephone encounter Felecia Cristina cano PA-C Work Phone: [facility] [place] Comment on above: Results Start: 05-19-2022 Telephone encounter Yrn Holland MD Work Phone: [facility] [place] Comment on above: Patient Question Start: 05-18-2022 End: 05-18-2022 Patient encounter procedure Shirley Hdez PLASTIC SHEETS SUPERVISOR Work Phone: [facility] Comment on above: Diarrhea, unspecifie d type (Primary Dx) Start: 05-15-2022 ambulatory Yrn kennedy MD Work Phone: [facility] Comment on above: Diarrhea Start: 05-09-2022 End: 05-09-2022 Emergency department patient visit ROSALVA OLIVER [facility] Start: 05-04-2022 ambulatory Yrn kennedy MD Work Phone: [facility] Comment on above: Back Pain Start: 04-28-2022 End: 04-28-2022 Nursing evaluation of patient and report Mi Nurse Work Phone: [facility] Comment on above: Encounter for immuni zation (Primary Dx) Start: 04-03-2022 Telephone encounter Russ fountain MD Work Phone: [facility] Comment on above: Procedure; Insurance Inquiry Start: 03-27-2022 End: 03-27-2022 Patient encounter procedure Yrn Holland MD Work Phone: [facility] Comment on above: Medicare annual well ness visit, initial (Primary Dx); Elevated hemoglobin A1c; Dyslipidemia; Major depressive disorder, recurrent episode, severe with anxious distress (HCC); Severe anxiety; Benign non-nodular prostatic hyperplasia without lower urinary tract symptoms; Living will in place; Advance directive discussed with patient; Encounter for immunization Start: 03-16-2022 Telephone encounter Yrn Holland MD Work Phone: [facility] Comment on above: Orders Start: 10-09-2021 ambulatory Ned Portillo (Ps s) [facility] Comment on above: Population Health Na vigation Outreach ([employer] Care Gaps) Start: 10-05-2021 ambulatory Yrn kennedy MD Work Phone: [facility] [place] Start: 09-16-2021 Telephone encounter Yrn Holland MD Work Phone: [facility] Comment on above: Patient Update (medi cation update) Start: 02-26-2021 Patient encounter procedure Yrn Holland MD Work Phone: [facility] Work Phone: Procedures Date Procedure Procedure Detail Performing Clinician Start: 02-05-2025 Urnls dip stick/tabl et rgnt auto w/o microscopy Ned Munoz APPLICATION COUNSELOR.PLASTIC SHEETS SUPERVISOR Work Phone: Start: 11-21-2024 Ct head/brain w/o co ntrast material Yrn Holland MD Work Phone: Start: 07-24-2024 PSA screening [facility] Start: 04-19-2024 PFIZER-BIONTECH COVI D-19 VACCINE AGE 12+ YR (COMIRNATY) Yrn Holland MD Work Phone: Start: 04-19-2024 Lipid 1996 panel - S madison or Plasma Yrn Holland MD Work Phone: Start: 07-13-2023 PSA screening [facility] Start: 03-31-2023 INFLUENZA VACCINE, P RSV FREE, AGE 65+ YR, HIGH DOSE, QUADRIVALENT (FLUZONE HIGH-DOSE) Yrn Holland MD Work Phone: Start: 03-31-2023 PFIZER-BIONTECH COVI D-19 VACCINE ( SEASON) AGE 12+ YR Yrn Holland MD Work Phone: Start: 03-31-2023 Lipid 1996 panel - S madison or Plasma Yrn Holland MD Work Phone: Start: 03-04-2023 Mri brain brain stem w/o contrast material Yrn Holland MD Work Phone: Start: 05-18-2022 Inf agent det nuclei c acid clostridium amp probe Shirley Hdez APPLICATION COUNSELOR.PLASTIC SHEETS SUPERVISOR Work Phone: Start: 05-18-2022 Ova&parasites direct smears concentration & id Shirley Hdez APPLICATION COUNSELOR.PLASTIC SHEETS SUPERVISOR Work Phone: Start: 03-27-2022 INFLUENZA SEASONAL QUADRIVALENT HIGH DOSE AGE 65+ Yrn Holland MD Work Phone: Start: 03-27-2022 PFIZER-BIOGravity R&D COVI D-19 BIVALENT BOOSTER VACCINE, AGE 12+ YR Yrn Holland MD Work Phone: Start: 03-20-2022 Lipid 1996 panel - S madison or Plasma Yrn Holland MD Work Phone: Start: 01-14-2018 Colonoscopy Yrn stevenson MD Work Phone: Plan of Treatment Date Care Activity Detail Author Start: 07-26-2033 Urine microalbumin profile DTaP,Tdap,Td Vaccine (4 - Td or Tdap) [facility] Start: 2030 RSV Vaccine (1 - 1-d ose 75+ series) RSV Vaccine (1 - 1-dose 75+ series) [facility] Start: 04-19-2029 Lipid panel Lipid Screening [facility] Start: 07-13-2028 Prostate specific antigen measurement Prostate Cancer Screening Discussion [facility] Start: 03-31-2028 Lipid 1996 panel - S madison or Plasma Lipid Screening [facility] Start: 03-31-2028 Lipid panel Lipid Screening [facility] Start: 01-15-2028 Colonoscopy COLONOSCOPY [facility] Start: 01-15-2028 COLORECTAL CANCER SCREENING COLORECTAL CANCER SCREENING [facility] Start: 01-15-2028 Screening for malign ant neoplasm of colon [facility] Start: 11-21-2027 Diabetes Screening Diabetes Screenin g [facility] Start: 04-19-2027 Diabetes Screening Diabetes Screenin g [facility] Start: 03-20-2027 Lipid 1996 panel - S madison or Plasma Lipid Screening [facility] Start: 03-20-2027 LIPID SCREEN LIPID SCREEN [facility] Start: 03-20-2027 PROSTATE CANCER SCREENING DISCUSSION PROSTATE CANCER SCREENING DISCUSSION [facility] Start: 03-20-2027 Prostate specific antigen measurement Prostate Cancer Screening Discussion [facility] Start: 03-31-2026 Diabetes Screening Diabetes Screenin g [facility] Start: 02-26-2026 LIPID SCREEN LIPID SCREEN [facility] Start: 02-26-2026 PROSTATE CANCER SCREENING DISCUSSION PROSTATE CANCER SCREENING DISCUSSION [facility] Start: 02-02-2026 Diabetes Screening Diabetes Screenin g [facility] Start: 07-01-2025 DIABETES SCREEN DIABETES SCREEN [facility] Start: 07-01-2025 Diabetes Screening Diabetes Screenin g [facility] Start: 06-24-2025 DIABETES SCREEN DIABETES SCREEN [facility] Start: 04-04-2025 End: 04-04-2025 Patient encounter procedure [facility] Comment on above: Medicare wellness Medicare wellness Hcc and Care gap closure Start: 03-20-2025 DIABETES SCREEN DIABETES SCREEN [facility] Start: 02-05-2025 End: 05-07-2025 Creatinine and Glomerular filtration rate.predicted panel - Serum, Plasma or Blood CREATININE BLD Lab Routine Periumbilical abdominal pain Lower abdominal pain Expected: 02/05/2025, Expires: 05/07/2025 [facility] Comment on above: Expected: 02/05/2025 , Expires: 05/07/2025 Start: 01-22-2025 Influenza vaccination Influenza Vacc ine (#1) [facility] Start: 12-20-2024 End: 12-20-2024 Patient encounter procedure 12/20/2024 12:30 PM EDT Office Visit [facility] [address] [place] [address] Dx: Transient alteration of awareness [R40.4]; Transient global amnesia [G45.4]; Bilateral carotid artery stenosis [I65.23] [facility] Comment on above: Dx: Transient altera tion of awareness [R40.4]; Transient global amnesia [G45.4]; Bilateral carotid artery stenosis [I65.23] Start: 11-21-2024 End: 11-21-2024 Patient encounter procedure 11/21/2024 8:00 AM EDT Appointment Cat Scan [address] [place] [address] Transient alteration of awareness [R40.4]; Transient global amnesia [G45.4] Cat Scan Comment on above: Transient alteration of awareness [R40.4]; Transient global amnesia [G45.4] Start: 11-20-2024 End: 02-19-2025 HEAVY METALS SCRN BL [facility] Work Phone: Comment on above: Expected: 11/20/2024 , Expires: 02/19/2025 Start: 11-20-2024 End: 02-19-2025 QUANTITATIVE TOXICOLOGY PANEL, URINE [facility] Comment on above: Expected: 11/20/2024 , Expires: 02/19/2025 Start: 10-17-2024 Covid-19 Vaccine () Covid-19 Vaccine () [facility] Start: 05-24-2024 Advance Directive Discussion Advance Directive Discussion [facility] Start: 05-24-2024 Medicare Advantage Annual Wellness Visit Medicare Advantage Annual Wellness Visit [facility] Start: 05-10-2024 End: 05-10-2024 Patient encounter procedure 05/10/2024 10:00 AM EST Office Visit Family [facility] [address] [place] [address] Felecia Quiroz PA-C [address] [place] [address] blood pressure [facility] Comment on above: blood pressure Start: 04-23-2024 DIABETES SCREEN DIABETES SCREEN [facility] Start: 03-31-2024 RSV Vaccine (1 - 1-d ose 60+ series) RSV Vaccine (1 - 1-dose 60+ series) [facility] Comment on above: Postponed from 06/25 (Insurance Coverage) Start: 08-05-2023 Urine microalbumin profile [facility] Start: 05-24-2023 Advance Directive Discussion Advance Directive Discussion [facility] Start: 03-31-2023 End: 06-30-2023 LIPID PANEL, NONFASTING [facility] Work Phone: Comment on above: Expected: 03/31/2023 , Expires: 06/30/2023 Start: 02-02-2023 End: 04-04-2023 Cobalamin (Vitamin B12) [Mass/volume] in Serum or Plasma [facility] Work Phone: Comment on above: Expected: 02/02/2023 , Expires: 04/04/2023 Start: 02-02-2023 End: 04-04-2023 Comprehensive metabolic 2000 panel - Serum or Plasma [facility] Work Phone: Comment on above: Expected: 02/02/2023 , Expires: 04/04/2023 Start: 02-02-2023 End: 04-04-2023 Folate [Mass/volume] in Serum or Plasma [facility] Work Phone: Comment on above: Expected: 02/02/2023 , Expires: 04/04/2023 Start: 02-02-2023 End: 04-04-2023 SYPHILIS TOTAL W/REFLEX [facility] Work Phone: Comment on above: Expected: 02/02/2023 , Expires: 04/04/2023 Start: 02-02-2023 End: 04-04-2023 Thyrotropin [Units/volume] in Serum or Plasma [facility] Work Phone: Comment on above: Expected: 02/02/2023 , Expires: 04/04/2023 Start: 02-02-2023 End: 04-04-2023 Thyroxine (T4) free [Mass/volume] in Serum or Plasma [facility] Work Phone: Comment on above: Expected: 02/02/2023 , Expires: 04/04/2023 Start: 02-02-2023 End: 04-04-2023 Urinalysis complete panel - Urine [facility] Work Phone: Comment on above: Expected: 02/02/2023 , Expires: 04/04/2023 Start: 01-22-2023 Covid-19 Vaccine () Covid-19 Vaccine () [facility] Start: 01-22-2023 Influenza vaccination Influenza Vacc ine (#1) [facility] Start: 12-30-2022 End: 03-01-2023 Hemoglobin A1c in Blood HGB A1C Lab Routine Elevated hemoglobin A1c Expected: 12/30/2022, Expires: 03/01/2023 [facility] Work Phone: Comment on above: Expected: 12/30/2022 , Expires: 03/01/2023 Start: 07-25-2022 Covid-19 Vaccine (6 - Pfizer series) Covid-19 Vaccine (6 - Pfizer series) [facility] Start: 2022 End: 08-25-2022 Comprehensive metabolic 2000 panel - Serum or Plasma COMP METABOLIC PANEL Lab Routine Elevated alkaline phosphatase level Elevated serum creatinine Expected: 2022, Expires: 08/25/2022 [facility] Work Phone: Comment on above: Expected: 2022 , Expires: 08/25/2022 Start: 05-24-2022 ADVANCE DIRECTIVE DISCUSSION ADVANCE DIRECTIVE DISCUSSION [facility] Start: 03-16-2022 End: 05-16-2022 CBC W Auto Differential panel - Blood CBC + DIFF Lab Routine Medication management Expected: 03/16/2022, Expires: 05/16/2022 [facility] Work Phone: Comment on above: Expected: 03/16/2022 , Expires: 05/16/2022 Start: 03-16-2022 End: 05-16-2022 Comprehensive metabolic 2000 panel - Serum or Plasma COMP METABOLIC PANEL Lab Routine Dyslipidemia Expected: 03/16/2022, Expires: 05/16/2022 [facility] Work Phone: Comment on above: Expected: 03/16/2022 , Expires: 05/16/2022 Start: 03-16-2022 End: 05-16-2022 Hemoglobin A1c in Blood HGB A1C Lab Routine Elevated hemoglobin A1c Expected: 03/16/2022, Expires: 05/16/2022 [facility] Work Phone: Comment on above: Expected: 03/16/2022 , Expires: 05/16/2022 Start: 03-16-2022 End: 05-16-2022 LIPID PANEL, NONFASTING LIPID PANEL, NONFASTING Lab Routine Dyslipidemia Expected: 03/16/2022, Expires: 05/16/2022 [facility] Work Phone: Comment on above: Expected: 03/16/2022 , Expires: 05/16/2022 Start: 03-16-2022 End: 05-16-2022 Prostate specific Ag [Mass/volume] in Serum or Plasma PSA/PROSTSPECAG DIAG Lab Routine Disorder of prostate Expected: 03/16/2022, Expires: 05/16/2022 [facility] Work Phone: Comment on above: Expected: 03/16/2022 , Expires: 05/16/2022 Start: 03-16-2022 End: 05-16-2022 Urinalysis complete panel - Urine URINALYSIS, WITH MICROSCOPIC Lab Routine Dyslipidemia Expected: 03/16/2022, Expires: 05/16/2022 [facility] Work Phone: Comment on above: Expected: 03/16/2022 , Expires: 05/16/2022 Start: 02-26-2022 PNEUMOCOCCAL: 65+ (2 - PPSV23 if available, else PCV20) PNEUMOCOCCAL: 65+ (2 - PPSV23 if available, else PCV20) [facility] Start: 01-22-2022 Influenza vaccination INFLUENZA (#1) [facility] Start: 07-07-2021 COVID-19 VACCINE (4 - Booster for Pfizer series) COVID-19 VACCINE (4 - Booster for Pfizer series) [facility] Start: 05-24-2021 ADVANCE DIRECTIVE DISCUSSION ADVANCE DIRECTIVE DISCUSSION [facility] Start: 05-01-2021 COVID-19 VACCINE (4 - Booster for Pfizer series) COVID-19 VACCINE (4 - Booster for Pfizer series) [facility] Start: 2020 PNEUMOVAX AGE 65 AND OVER WITH 5YR LOOKBACK (#1) PNEUMOVAX AGE 65 AND OVER WITH 5YR LOOKBACK (#1) [facility] Start: 02-03-2018 FECAL OCCULT BLOOD FECAL OCCULT BLOO D [facility] Start: 02-03-2018 Screening for malign ant neoplasm of colon Fecal Occult Blood [facility] Start: 2015 RSV Vaccine (1 - 1-d ose 60+ series) RSV Vaccine (1 - 1-dose 60+ series) [facility] Start: 2000 COLOGUARD (FIT-DNA) COLOGUARD (FIT-D NA) [facility] Start: [address] COLONOGRAPHY [facility] Start: 2000 Screening for malign ant neoplasm of colon [facility] Start: 2000 SIGMOIDOSCOPY SIGMOIDOSCOPY [facility] Clostridioides diffi cile toxin genes [Presence] in Stool by ILIANA with probe detection C. DIFFICILE PCR Lab Routine Diarrhea, unspecified type Ordered: 07/15/2022 [facility] Work Phone: Comment on above: Ordered: 07/15/2022 End: 03-07-2026 CT Abdomen W contrast IV CT ABDOMEN W IVCON Radiology STAT Periumbilical abdominal pain Lower abdominal pain 1 Occurrences starting 02/05/2025 until 03/07/2026 [facility] Work Phone: Comment on above: 1 Occurrences starti ng 02/05/2025 until 03/07/2026 End: 12-20-2025 CT Head WO contrast CT BRAIN WO IVCON Radiology STAT Transient alteration of awareness Transient global amnesia 1 Occurrences starting 11/20/2024 until 12/20/2025 [facility] Comment on above: 1 Occurrences starti ng 11/20/2024 until 12/20/2025 End: 03-03-2024 Mri brain brain stem w/o contrast material MRI BRAIN WO IVCON Radiology Routine Dementia without behavioral disturbance (HCC) Memory difficulties 1 Occurrences starting 02/02/2023 until 03/03/2024 [facility] Work Phone: Comment on above: 1 Occurrences starti ng 02/02/2023 until 03/03/2024 End: 11-20-2025 US Carotid arteries - bilateral US CAROTID ARTERIES [facility] Vascular Lab Routine Transient alteration of awareness Transient global amnesia Bilateral carotid artery stenosis 1 Occurrences starting 11/20/2024 until 11/20/2025 [facility] Comment on above: 1 Occurrences starti ng 11/20/2024 until 11/20/2025 [facility] Immunizations Immunization Date Immunization Notes Care Provider Gabe cross 04-19-2024 COVID-19 vaccine, ag e 12+ yr (PFIZER-BIONTECH COMIRNATY) Yrn Holland MD Work Phone: [facility] 04-19-2024 influenza, high dose seasonal, preservative-free Yrn Holland MD Work Phone: [facility] 04-19-2024 influenza virus vacc ine, unspecified formulation Yrn Holland MD Work Phone: [facility] 07-27-2023 tetanus toxoid, redu sera diphtheria toxoid, and acellular pertussis vaccine, adsorbed Yrn Holland MD Work Phone: [facility] 03-31-2023 COVID-19 vaccine, ag e 12+ yr, 2022- season (PFIZER-BIONTECH) Yrn Holland MD Work Phone: [facility] 03-31-2023 influenza (HD-IIV4) vaccine, age 65+ yr, high dose, quadrivalent, PF (FLUZONE HIGH-DOSE) Yrn Holland MD Work Phone: [facility] 04-28-2022 pneumococcal polysaccharide vaccine, 23 valent Mi Nurse Work Phone: [facility] Work Phone: 03-27-2022 COVID-19 booster vaccine, age 12+ yr, bivalent (PFIZER-BIONTECH) Yrn Holland MD Work Phone: [facility] 03-27-2022 influenza, high-dose , quadrivalent vaccine (FLUZONE HIGH DOSE QUADRIVALENT) Yrn Holland MD Work Phone: [facility] 03-27-2022 influenza virus vacc ine, unspecified formulation Yrn Holland MD Work Phone: [facility] 03-06-2021 COVID-19 vaccine, ag e 12+ yr (PFIZER-BIONTECH - PURPLE TOP) Yrn Holland MD Work Phone: [facility] 02-26-2021 influenza, high-dose , quadrivalent vaccine (FLUZONE HIGH DOSE QUADRIVALENT) Yrn Holland MD Work Phone: [facility] 02-26-2021 pneumococcal conjuga te vaccine, 13 valent Yrn Holland MD Work Phone: [facility] 07-29-2020 COVID-19 vaccine, ag e 12+ yr (PFIZER-BIONTECH - PURPLE TOP) Yrn Holland MD Work Phone: [facility] Work Phone: 02-23-2020 influenza, injectabl e, quadrivalent, contains preservative Yrn Holland MD Work Phone: [facility] Work Phone: 05-29-2019 zoster vaccine recombinant Yrn Holland MD Work Phone: [facility] Work Phone: 03-27-2019 zoster vaccine recombinant Yrn Holland MD Work Phone: [facility] Work Phone: 03-17-2019 influenza, injectabl e, quadrivalent, contains preservative Yrn Holland MD Work Phone: [facility] 03-11-2018 influenza, injectabl e, quadrivalent, contains preservative Yrn Holland MD Work Phone: [facility] Work Phone: 03-10-2017 influenza, injectabl e, quadrivalent, contains preservative Yrn Holland MD Work Phone: [facility] Work Phone: 03-14-2016 influenza, injectabl e, quadrivalent, contains preservative Yrn Holland MD Work Phone: [facility] Work Phone: 02-21-2015 influenza, injectabl e, quadrivalent, contains preservative Yrn Holland MD Work Phone: [facility] 03-07-2014 influenza, seasonal, injectable Yrn Holland MD Work Phone: [facility] 08-04-2013 tetanus and diphther ia toxoids, adsorbed, preservative free, for adult use (2 Lf of tetanus toxoid and 2 Lf of diphtheria toxoid) Yrn Holland MD Work Phone: [facility] 03-20-2013 zoster vaccine, live Yrn Holland MD Work Phone: [facility] 03-04-2013 influenza virus vacc ine, unspecified formulation Yrn Holland MD Work Phone: [facility] 03-29-2010 influenza virus vacc ine, unspecified formulation Yrn Holland MD Work Phone: [facility] 03-01-2009 influenza virus vacc ine, unspecified formulation Yrn Holland MD Work Phone: [facility] Work Phone: 05-23-2008 tetanus toxoid, redu sera diphtheria toxoid, and acellular pertussis vaccine, adsorbed Yrn Holland MD Work Phone: [facility] Work Phone: 03-30-2008 influenza virus vacc ine, unspecified formulation Yrn Holland MD Work Phone: [facility] Work Phone: 04-01-2007 influenza virus vacc ine, unspecified formulation Yrn Holland MD Work Phone: [facility] Payers Date Payer Category Payer Self-pay 2021 Medicare [employer] MED[employer]ARE A ETNA MEDICARE PPO [id number] 2021-Present [phone] [address] [place] [address] PPO [id number] 2021 Medicare [employer] MEDICARE A [employer]NA MEDICARE PPO [id number] 2021-Present [phone] [address] [place] [address] PPO [id number] 2021 Medicare (Managed Care) DANTE OL [id number] 2021 Medicare [id number] 1955 Unknown [id number] Unknown [id number] Unknown [id number] Social History Date Type Detail Facility Start: 02-15-2018 End: 03-27-2022 Tobacco smoking status NHIS Never smoked tobacco [facility] Work Phone: Start: 09-16-2021 End: 11-20-2024 Alcohol intake Current non-drinker of alcohol (finding) [facility] Start: 08-02-2020 History SDOH Alcohol Frequency 1 [facility] Start: 08-02-2020 History SDOH Alcohol Std Drinks 98 [facility] Start: 08-02-2020 History SDOH Social Connections Phone 5 [facility] Start: 08-02-2020 History SDOH Social Connections Oriental Orthodox 3 [facility] Start: 08-02-2020 History SDOH Physica l Activity DPW 6 [facility] Start: 08-02-2020 History SDOH Physica l Activity MPS 15 [facility] Start: 08-02-2020 History SDOH Transport Med 2 [facility] Start: 08-02-2020 Education 18 [facility] Start: 1955 Sex Assigned At Not on file [facility] Start: 02-15-2018 End: 03-27-2022 Tobacco use and exposure Smokeless tobacco non-user [facility] Start: 03-17-2022 End: 03-27-2022 Exposure to SARS-CoV-2 (event) Not sure [facility] Start: 08-02-2020 End: 02-02-2023 History of Social function [facility] Start: 08-02-2020 End: 02-02-2023 Social connection and isolation panel [facility] Start: 04-24-2012 How often do you get together with friends or relatives? Patient refused [facility] Do you belong to any clubs or organizations such as yazidi groups, unions, fraternal or athletic groups, or school groups? Yes [facility] Are you now , , , , never or living with a partner? [facility] How often to you hav e a drink containing alcohol? Never [facility] Do you feel stress - tense, restless, nervous, or anxious, or unable to sleep at night because your mind is troubled all the time - these days [OSQ] Not at all [facility] (I/We) worried wheth er (my/our) food would run out before (I/we) got money to buy more. Never true [facility] In the past 12 month s, was there a time when you were not able to pay the mortgage or rent on time? No [facility] Do you feel stress - tense, restless, nervous, or anxious, or unable to sleep at night because your mind is troubled all the time - these days [OSQ] Rather much [facility] Clinical Notes 09-16-2021 to 03-22-2025 Daphnie Best MA - 02/07/2025 9:18 AM Ned Edouard APRN.KIKO - 02/05/2025 1:32 PM EDTTelephone Macey - Jayleen Mckeon RN - 02/05/2025 8:19 AM EDTPatient InstructionsPatient Instructions Note Date & Type Note Facility 03-22-2025 Note HNO ID: [id number] Author: LSIA ROBIN LPN Service: ? Author Type: Licensed Nurse Type: Progress Notes Filed: 03/22/2025 07:36 Note Text: Scan on 03/21/2025 6:11 PM by ProviderDahlia PA-C: CT Scan [facility] 02-07-2025 Note HNO ID: [id number] Author: DAPHNIE BEST MA Service: ? Author Type: Technical Analyst Type: Progress Notes Filed: 02/07/2025 09:18 Note Text: Scan on 02/06/2025 4:49 PM by ProviderDahlia PA-C: Dr. Najera [facility] 02-07-2025 History of Present illness Narrative Scan on 02/06/2025 4:49 PM by Dahlia Barakat PA-C: Dr. Najera documented in this encounter [facility] 02-05-2025 Note HNO ID: [id number] Author: NED MUNOZ APRN.PLASTIC SHEETS SUPERVISOR Service: ? Author Type: Nurse Practitioner Type: Progress Notes Filed: 02/05/2025 14:03 Note Text: Chief Complaint Patient presents with: Abdominal Pain: Lower abdomen X1 week HPI Crissy Richter is a 69 year old male who presents here today for Above Complaints.. Patient presents for lower abd pain just below belly button. Reports pain is constant,6/10. Pain is worse after he eats. Started 1 week ago. No nausea, vomiting, diarrhea. Also reports increased urination. Patient has follow up scheduled tomorrow with Urology. Past medical history, appointments, medications, allergies reviewed. Previous Medical History PAST MEDICAL HISTORY Diagnosis Date Advance directive discussed with patient 03/27/2022 Discussed 03/2022: patient to bring in copies [place] (actinic keratosis) 01/28/2017 tearted with cryo 01/28/2017 Benign non-nodular prostatic hyperplasia without lower urinary tract symptoms 01/31/[address] White yearly and gets PSA's and prostate exam. 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 Oropharyngeal dysphagia 03/10/2023 swallowing exam 02/2023: WC: mild-Mod Osteoarthritis of finger of right hand 01/28/2017 PIP Severe anxiety 09/16/2021 Seeing Psychiatry, Lizabeth Baumann Well adult exam 05/14/2016 Can have one per , last done 02/23/2019 Previous Surgical History PAST SURGICAL HISTORY Procedure Laterality Date ARTHROSCOPY KNEE DIAGNOSTIC W/WO SYNOVIAL BX SPX 1999 Arthroscopy, knee Right x2 ARTHROSCOPY KNEE DIAGNOSTIC W/WO SYNOVIAL BX SPX 04/14/2006 left COLONOSCOPY 01/14/2018 Dr. Esteban, negative, recheck in 10 yrs COLONOSCOPY FLX DX W/COLLJ SPEC WHEN PFRMD 11/02/2008 repeat 10 yrs IMMUNOCHEMICAL FECAL OCCULT BLOOD TEST 02/03/2017 Negative Family History FAMILY HISTORY Problem Relation Age of Onset Cancer Mother pancreas, with mets to lungs, passed 05/2016 other (parkinson's disease) Father passed 2006 Patient Allergies ALLERGIES No Known Allergies Current Medications Current Outpatient Medications on File Prior to Visit Medication Sig atorvastatin (LIPITOR) 10 mg tablet Take 1 tablet by mouth once daily. tamsulosin (FLOMAX) 0.4 mg Take 1 capsule by mouth once daily. Per Urology: Dr. Jorge venlafaxine ER (EFFEXOR XR) 150 mg 24 hr capsule Take 2 capsules by mouth daily at bedtime. Per Psych, Dr. Barone mirtazapine (REMERON) 45 mg tablet Take 1 tablet by mouth daily at bedtime. Per Psych, Dr. Barone OLANZapine (ZYPREXA) 5 mg tablet Take 2 tablets by mouth daily at bedtime. Per Psych, Dr. Barone buPROPion XL (WELLBUTRIN XL) 150 mg 24 hr tablet Take 150 mg by mouth once daily. TURMERIC ORAL Take by mouth. Taking 1000 mg daily mu-zoe-nnxbw acid-lutein (CENTRUM SILVER) 400-250 mcg chew Take 1 tablet by mouth once daily. No current facility-administered medications on file prior to visit. Social History SOCIAL HISTORY[1] Review of Symptoms REVIEW OF SYSTEMS SEE HPI EXAM: BP 138/87 Pulse 90 Wt 71 kg (156 lb 8.4 oz) BMI 22.78 kg/m? General Appearance: Well appearing, alert, in no acute distress, well-hydrated, well nourished. Abdomen: Negative findings: umbilicus normal, symmetric, no masses palpable, bowel sounds normal, and no bruits heard, Positive findings: tenderness moderate suprapubic. Health Maintenance List Advance Directive Discussion due on 05/24/2024 Medicare Advantage Annual Wellness Visit due on 05/24/2024 Influenza Vaccine(1) due on 01/22/2025 Diabetes Screening due on 11/21/2027 Colorectal Cancer Screening due on 01/15/2028 Lipid Screening due on 04/19/2029 RSV Vaccine(1 - 1-dose 75+ series) due on 2030 DTaP,Tdap,Td Vaccine(4 - Td or Tdap) due on 07/26/2033 Shingrix Vaccine Completed Pneumococcal Vaccine: 50+ Completed Hepatitis C Screening Discontinued Data reviewed Latest Ref Rng 02/05/2025 GLUCOSE UA (POCT) Negative mg/dL Negative BILIRUBIN UA (POCT) Negative Negative KETONE UA (POCT) Negative mg/dL Negative SPECIFIC GRAVITY UA (POCT) 1.005 - 1.030 >=1.030 HEMOGLOBIN/BLOOD UA (POCT) Negative Negative PH UA (POCT) 4.5 - 8.0 6.0 PROTEIN UA (POCT) Negative mg/d (more content not included)... [facility] 02-05-2025 History of Present illness Narrative Chief Complaint Patient presents with: Abdominal Pain: Lower abdomen X1 week HPI Crissy Richter is a 69 year old male who presents here today for Above Complaints.. Patient presents for lower abd pain just below belly button. Reports pain is constant,6/10. Pain is worse after he eats. Started 1 week ago. No nausea, vomiting, diarrhea. Also reports increased urination. Patient has follow up scheduled tomorrow with Urology. Past medical history, appointments, medications, allergies reviewed. Previous Medical History PAST MEDICAL HISTORY Diagnosis Date Advance directive discussed with patient 03/27/2022 Discussed 03/2022: patient to bring in copies [place] (actinic keratosis) 01/28/2017 tearted with cryo 01/28/2017 Benign non-nodular prostatic hyperplasia without lower urinary tract symptoms 01/31/[address] White yearly and gets PSA's and prostate exam. 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 Oropharyngeal dysphagia 03/10/2023 swallowing exam 02/2023: WCH: mild-Mod Osteoarthritis of finger of right hand 01/28/2017 PIP Severe anxiety 09/16/2021 Seeing PsychiatryDr Snavely Well adult exam 05/14/2016 Can have one per year, last done 02/23/2019 Previous Surgical History PAST SURGICAL HISTORY Procedure Laterality Date ARTHROSCOPY KNEE DIAGNOSTIC W/WO SYNOVIAL BX SPX 1999 Arthroscopy, knee Right x2 ARTHROSCOPY KNEE DIAGNOSTIC W/WO SYNOVIAL BX SPX 04/14/2006 left COLONOSCOPY 01/14/2018 Dr. Esteban, negative, recheck in 10 yrs COLONOSCOPY FLX DX W/COLLJ SPEC WHEN PFRMD 11/02/2008 repeat 10 yrs IMMUNOCHEMICAL FECAL OCCULT BLOOD TEST 02/03/2017 Negative Family History FAMILY HISTORY Problem Relation Age of Onset Cancer Mother pancreas, with mets to lungs, passed 05/2016 other (parkinson's disease) Father passed 2006 Patient Allergies ALLERGIES No Known Allergies Current Medications Current Outpatient Medications on File Prior to Visit Medication Sig atorvastatin (LIPITOR) 10 mg tablet Take 1 tablet by mouth once daily. tamsulosin (FLOMAX) 0.4 mg Take 1 capsule by mouth once daily. Per Urology: Dr. Jorge venlafaxine ER (EFFEXOR XR) 150 mg 24 hr capsule Take 2 capsules by mouth daily at bedtime. Per Psych, Dr. Barone mirtazapine (REMERON) 45 mg tablet Take 1 tablet by mouth daily at bedtime. Per Psych, Dr. Barone OLANZapine (ZYPREXA) 5 mg tablet Take 2 tablets by mouth daily at bedtime. Per Psych, Dr. Barone buPROPion XL (WELLBUTRIN XL) 150 mg 24 hr tablet Take 150 mg by mouth once daily. TURMERIC ORAL Take by mouth. Taking 1000 mg daily vj-xch-qdmvz acid-lutein (CENTRUM SILVER) 400-250 mcg chew Take 1 tablet by mouth once daily. No current facility-administered medications on file prior to visit. Social History SOCIAL HISTORY[1] Review of Symptoms REVIEW OF SYSTEMS SEE HPI EXAM: BP 138/87 Pulse 90 Wt 71 kg (156 lb 8.4 oz) BMI 22.78 kg/m General Appearance: Well appearing, alert, in no acute distress, well-hydrated, well nourished. Abdomen: Negative findings: umbilicus normal, symmetric, no masses palpable, bowel sounds normal, and no bruits heard, Positive findings: tenderness moderate suprapubic. Health Maintenance List Advance Directive Discussion due on 05/24/2024 Medicare Advantage Annual Wellness Visit due on 05/24/2024 Influenza Vaccine(1) due on 01/22/2025 Diabetes Screening due on 11/21/2027 Colorectal Cancer Screening due on 01/15/2028 Lipid Screening due on 04/19/2029 RSV Vaccine(1 - 1-dose 75+ series) due on 2030 DTaP,Tdap,Td Vaccine(4 - Td or Tdap) due on 07/26/2033 Shingrix Vaccine Completed Pneumococcal Vaccine: 50+ Completed Hepatitis C Screening Discontinued Data reviewed Latest Ref Rng 02/05/2025 GLUCOSE UA (POCT) Negative mg/dL Negative BILIRUBIN UA (POCT) Negative Negative KETONE UA (POCT) Negative mg/dL Negative SPECIFIC GRAVITY UA (POCT) 1.005 - 1.030 >=1.030 HEMOGLOBIN/BLOOD UA (POCT) Negative Negative PH UA (POCT) 4.5 - 8.0 6.0 PROTEIN UA (POCT) Negative mg/dL Negative UROBILINOGEN UA (POCT) Normal E.U./dL 0.2 NITRITE UA (POCT) Negative Negative LEUKOCYTES UA (POCT) Negative Negative COLOR UA (POCT) Yellow CLARITY UA (POCT) Clear ASSESSMENT/PLAN: 1. Periumbilical abdominal pain - ICD9: 789.05, ICD10: R10.33 (primary diagnosis) - UA DIP, URINE (POC) - CT ABDOMEN W IVCON - IV CONTRAST (RADIOLOGY PROCEDURE) - NOT ON MAR - ENTERIC CONTRAST (RADIOLOGY PROCEDURE) - NOT ON MAR - CREATININE BLD 2. Lower abdominal pain - ICD9: 789.09, ICD10: R10.30 - CT ABDOMEN W IVCON - IV CONTRAST (RADIOLOGY PROCEDURE) - NOT ON MAR - ENTERIC CONTRAST (RADIOLOGY PROCEDURE) - NOT ON MAR - CREATININE BLD Will schedule CT for after appt with Urology tomorrow. If urology does not think it is bladder related then proceed with CT. If urological cause found patient to cancel CT. Ned Munoz APRN.CNP [1] Social History Tobacco Use Smoking status: Never Smokeless tobacco: Never Substance Use Topics Alcohol use: No Drug use: No documented in this encounter [facility] 02-05-2025 Telephone encounter Note Reason for Conversation Lower Abdomen Pain Background Patient calls and states that he has abdominal pain in lower center of abdomen below belly button. Patient states that this has been going on for little over a week. Disposition SEE HCP (OR PCP TRIAGE) WITHIN 4 HOURS- Patient is scheduled to see Ned Munoz today 02/05/2025 at 1:40 Reason for Disposition [1] MILD-MODERATE pain AND [2] constant AND [3] age > 60 years 1. LOCATION: Lower Abdomen below Belly Button; In Center. 2. RADIATION: Denies 3. ONSET: A little less than a week 4. SUDDEN: Gradual 5. PATTERN Does not keep him up at night, but it is constant 6. SEVERITY: Patient reports pain level of is 6 out of 10 7. RECURRENT SYMPTOM: Not consistent like it has been 8. CAUSE: Unsure, unless it is his bladder. 9. RELIEVING/AGGRAVATING FACTORS: Worse after he eats. 10. OTHER SYMPTOMS: Urinary frequency No Additional Information on file. Protocols Used Abdominal Pain - [id number] [facility] 02-05-2025 Miscellaneous Notes Reason for Conversation Lower Abdomen Pain Background Patient calls and states that he has abdominal pain in lower center of abdomen below belly button. Patient states that this has been going on for little over a week. Disposition SEE HCP (OR PCP TRIAGE) WITHIN 4 HOURS- Patient is scheduled to see Ned Munoz today 02/05/2025 at 1:40 Reason for Disposition [1] MILD-MODERATE pain AND [2] constant AND [3] age > 60 years 1. LOCATION: Lower Abdomen below Belly Button; In Center. 2. RADIATION: Denies 3. ONSET: A little less than a week 4. SUDDEN: Gradual 5. PATTERN Does not keep him up at night, but it is constant 6. SEVERITY: Patient reports pain level of is 6 out of 10 7. RECURRENT SYMPTOM: Not consistent like it has been 8. CAUSE: Unsure, unless it is his bladder. 9. RELIEVING/AGGRAVATING FACTORS: Worse after he eats. 10. OTHER SYMPTOMS: Urinary frequency No Additional Information on file. Protocols Used Abdominal Pain - [id number] documented in this encounter [facility] 12-25-2024 Telephone encounter Note Patient's notified of results. Patient's verbalizes understanding. states that patient has had more episodes of leaning and almost falling. reports that PCP told her that if this happens again that patient should go to ER. states that they are currently in [place] and are flying home today. Patient did not want to go to an ER in [place]. Advised again that if patient continues to have episodes that he needs to go to ER. Voiced understanding. Jayleen Mckeon RN [facility] 12-25-2024 Miscellaneous Notes Patient's notified of results. Patient's verbalizes understanding. states that patient has had more episodes of leaning and almost falling. reports that PCP told her that if this happens again that patient should go to ER. states that they are currently in [place] and are flying home today. Patient did not want to go to an ER in [place]. Advised again that if patient continues to have episodes that he needs to go to ER. Voiced understanding. Jayleen Mckeon RN [employer] message with results viewed by patient on 12/22/24 at 2:57 pm. Daphnie Best MA Notified pt office attempted to reach him by phone without success and message was left, but no call back received. Notified pt of results below from Provider. If questions to contact office. Will leave encounter open to make sure message with results is viewed by pt. If viewed will close. If not, will attempt to call pt again. Daphnie Best MA Left message for pt to contact office. Lisa Robin LPN Carotid artery US is stable. documented in this encounter [facility] 12-25-2024 Telephone encounter Note [employer] message with results viewed by patient on 12/22/24 at 2:57 pm. Daphnie Best MA [facility] 12-22-2024 Telephone encounter Note Notified pt office attempted to reach him by phone without success and message was left, but no call back received. Notified pt of results below from Provider. If questions to contact office. Will leave encounter open to make sure message with results is viewed by pt. If viewed will close. If not, will attempt to call pt again. Daphnie Best MA [facility] 12-21-2024 Telephone encounter Note Left message for pt to contact office. Lisa Robin LPN [facility] 12-21-2024 Telephone encounter Note Carotid artery US is stable. [facility] 11-23-2024 Telephone encounter Note Pt read message today. Naomie Harris MA [facility] 11-23-2024 Miscellaneous Notes Pt read message today. Naomie Harris MA Notified via [employer], will leave open till pt has read message. Naomie Harris MA Let patient know all his labs so far have been ok. The only lab pending is for heavy metals. Will update him when completed. documented in this encounter [facility] 11-23-2024 Telephone encounter Note Can we contact pt to help setup US Carotids please. Pt may call in to schedule as well. Thanks Daphnie Best MA [facility] 11-23-2024 Miscellaneous Notes Can we contact pt to help setup US Carotids please. Pt may call in to schedule as well. Thanks Daphnie Best MA documented in this encounter [facility] 11-23-2024 Telephone encounter Note Notified via [employer], will leave open till pt has read message. Naomie Harris MA [facility] 11-22-2024 Telephone encounter Note Let patient know all his labs so far have been ok. The only lab pending is for heavy metals. Will update him when completed. [facility] 11-21-2024 Telephone encounter Note Call to pt and notified him of results below. Pt asking if he can drive, reviewed with PCP who notified yes he could. Asking about lab results, notified pt that labs have not all fully came back and once they do they will be reviewed and him notified. Pt understood. Daphnie Best MA [facility] 11-21-2024 Miscellaneous Notes Call to pt and notified him of results below. Pt asking if he can drive, reviewed with PCP who notified yes he could. Asking about lab results, notified pt that labs have not all fully came back and once they do they will be reviewed and him notified. Pt understood. Daphnie Best MA Let patient know CT of his brain was normal for his age without any acute abnormalities. Pt called in and was asking if the provider would look at the results of his CT and get back to him. IMPRESSION: No acute intracranial abnormality. 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 Maryann Chen RN documented in this encounter [facility] 11-21-2024 Telephone encounter Note Let patient know CT of his brain was normal for his age without any acute abnormalities. [facility] 11-21-2024 Telephone encounter Note Pt called in and was asking if the provider would look at the results of his CT and get back to him. IMPRESSION: No acute intracranial abnormality. 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 Maryann Chen RN [facility] 11-20-2024 Instructions Yrn Holland MD - 11/20/2024 11:32 AM EDT We discussed your recent episode of transient altered awareness: - Based on your symptoms, I am concerned about the possibility of a transient ischemic attack (TIA) or another cause of transient altered awareness. While your neurological exam today was normal, it is important to investigate further. - I have ordered the following tests to help determine the cause of your symptoms: - A stat CT scan of your head to check for any signs of a stroke or other abnormalities. This has been marked as urgent and should be completed as soon as possible, ideally within the next few hours. - Blood work, including an electrolyte panel, liver and kidney function tests, thyroid levels, a complete blood count, a toxicology screen, and a heavy metal screen, to rule out other potential causes. - A urine test to check for a urinary tract infection. - Please do not drive until we have completed these tests and confirmed that it is safe for you to do so. We discussed what to do if your symptoms recur: - If you experience another episode of confusion, weakness, or any other concerning symptoms, please go to the emergency room immediately. Next steps: - After completing your blood work, you will proceed to the other building for your CT scan. Our office will handle the insurance authorization for the scan. - Once the CT scan is completed, the results will be reviewed by radiology immediately, and we will contact you with the findings. If you do not hear from us, please check [facility]Met or call our office for updates. Please let us know if you have any additional questions or concerns. documented in this encounter [facility] 11-20-2024 History of Present illness Narrative Chief Complaint Patient presents with: Gait Problem HPI Crissy Richter is a 69 year old male who presents here today for an acute visit. Pt contacted the office and spoke with Triage about an episode patient had over the weekend while hiking. noticed that patient was walking with his left shoulder lopsided. She asked him to straighten up, he told her he was but they were not. then said they went to go sit down, instead of sitting down patient fell down backwards. After a while patient was okay. At time of call patient states patient denied any symptoms. Crissy Richter is a 69-year-old male presenting for evaluation of a recent episode of altered awareness and confusion. Crissy experienced an episode of altered awareness and confusion while out hiking at [facility]. During the episode, his senior vice president noted that his shoulder appeared to be down, and he was leaning slightly backward while walking. He did not realize his shoulder was down and denies any weakness or numbness in his left arm or leg. He was able to move his arms and grab objects when asked. When attempting to sit down at a picnic table, he wobbled backward without bending his knees but did not fall or hit his head. He seemed confused about his body positioning but was able to answer questions and make eye contact. He denies any recent changes in medications, herbal supplements, or illicit drug use. He has been taking turmeric. The day before the episode, he was confused about the functionality of the car windows, thinking they were not working when they were. He denies any recent stress or changes at home. He has been drinking the same water as his senior vice president and denies any exposure to different water sources. 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 Past medical history, appointments, medications, allergies reviewed. Previous Medical History PAST MEDICAL HISTORY Diagnosis Date Advance directive discussed with patient 03/27/2022 Discussed 03/2022: patient to bring in copies AK (actinic keratosis) 01/28/2017 tearted with cryo 01/28/2017 Benign non-nodular prostatic hyperplasia without lower urinary tract symptoms 01/31/[address] White yearly and gets PSA's and prostate exam. 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 Oropharyngeal dysphagia 03/10/2023 swallowing exam 02/2023: [facility]: mild-Mod Osteoarthritis of finger of right hand 01/28/2017 PIP Severe anxiety 09/16/2021 Seeing Psychiatry, Lizabeth Baumann Well adult exam 05/14/2016 Can have one per year, last done 02/23/2019 Previous Surgical History PAST SURGICAL HISTORY Procedure Laterality Date ARTHROSCOPY KNEE DIAGNOSTIC W/WO SYNOVIAL BX SPX 1999 Arthroscopy, knee Right x2 ARTHROSCOPY KNEE DIAGNOSTIC W/WO SYNOVIAL BX SPX 04/14/2006 left COLONOSCOPY 01/14/2018 Dr. Esteban, negative, recheck in 10 yrs COLONOSCOPY FLX DX W/COLLJ SPEC WHEN PFRMD 11/02/2008 repeat 10 yrs IMMUNOCHEMICAL FECAL OCCULT BLOOD TEST 02/03/2017 Negative Family History FAMILY HISTORY Problem Relation Age of Onset Cancer Mother pancreas, with mets to lungs, passed 05/2016 other (parkinson's disease) Father passed 2006 Patient Allergies ALLERGIES No Known Allergies Current Medications Current Outpatient Medications on File Prior to Visit Medication Sig atorvastatin (LIPITOR) 10 mg tablet Take 1 tablet by mouth once daily. tamsulosin (FLOMAX) 0.4 mg Take 1 capsule by mouth once daily. Per Urology: Dr. Jorge venlafaxine ER (EFFEXOR XR) 150 mg 24 hr capsule Take 2 capsules by mouth daily at bedtime. Per Psych, Dr. Barone mirtazapine (REMERON) 45 mg tablet Take 1 tablet by mouth daily at bedtime. Per Psych, Dr. Barone OLANZapine (ZYPREXA) 5 mg tablet Take 2 tablets by mouth daily at bedtime. Per Psych, Dr. Barone buPROPion XL (WELLBUTRIN XL) 150 mg 24 hr tablet Take 150 mg by mouth once daily. TURMERIC ORAL Take by mouth. Taking 1000 mg daily kb-ttb-fsbth acid-lutein (CENTRUM SILVER) 400-250 mcg chew Take 1 tablet by mouth once daily. No current facility-administered medications on file prior to visit. Social History Social History Tobacco Use Smoking status: Never Smokeless tobacco: Never Substance Use Topics Alcohol use: No Drug use: No Review of Symptoms REVIEW OF SYSTEMS SEE HPI EXAM: BP 118/74 (BP Site: Left Arm, BP Position: Sitting, BP Cuff Size: Regular Adult) Pulse 98 Resp 16 Wt 72.4 kg (159 lb 9.6 oz) BMI 23.23 kg/m General Appearance: Well appearing, alert, in no acute distress, well-hydrated, well nourished.. Eyes: Anicteric sclera. Pupils are equally round and reactive to light. Extraocular movements are intact. There is a chronic nystagmus which is genetic. This mad it difficult to do a funduscopic exam. Areas that were visualized were normal. . Neck: Supple, no adenopathy; thyroid symmetric, normal size, no bruits. Lungs: Lungs clear to auscultation. No wheezing, rhonchi, rales.. Heart: RRR without murmur, gallop, or rubs. No ectopy. Musculoskeletal: Muscular strength intact, No joint swelling, deformity, or tenderness. With arms out in front of him and eyes closed there was no drift. Peripheral Pulses: Normal. Neurologic: Gait normal. Reflexes normal and symmetric at the knees.. Sensation to light touch was symmetrical and intact. Crainal nerves 2-12 intact. Health Maintenance List Advance Directive Discussion due on 05/24/2024 Medicare Advantage Annual Wellness Visit due on 05/24/2024 Covid-19 Vaccine( season) due on 10/17/2024 Diabetes Screening due on 04/19/2027 Colorectal Cancer Screening due on 01/15/2028 Lipid Screening due on 04/19/2029 RSV Vaccine(1 - 1-dose 75+ series) due on 2030 DTaP,Tdap,Td Vaccine(4 - Td or Tdap) due on 07/26/2033 Influenza Vaccine Completed Shingrix Vaccine Completed Pneumococcal Vaccine: 50+ Completed Hepatitis C Screening Discontinued Data reviewed Assessment and Plan 1. Transient alteration of awareness (R40.4) Episode characterized by unawareness of body positioning, no loss of consciousness, and no tremors. Neurological exam today is normal with intact sensation and strength bilaterally. Differential diagnosis includes TIA. - Ordered CT head stat to rule out cerebrovascular accident. - Ordered comprehensive blood work including electrolyte panel, liver and kidney function tests, thyroid level, CBC, toxicology screen, and heavy metal screen. - Advised patient to avoid driving until CT results are reviewed. - Instructed to seek immediate medical attention if symptoms recur. - will get carotid US. 2. Shoulder weakness (R29.898) No weakness or numbness reported in the left arm during the episode. Neurological exam shows normal strength and sensation in both upper extremities. 3. Nystagmus (H55.00) Patient has a hereditary nystagmus, noted to be less pronounced than previously observed. 4. Transient global amnesia (G45.4) No evidence of transient global amnesia; patient retains memory of the episode. - await CT results 5. Bilateral carotid artery stenosis (I65.23) - check US. Yrn Holland MD Recording using [employer] software for draft documentation of the visit was discussed with the patient/authorized solar sales representative; all questions welcomed and answered. Patient/authorized solar sales representative agreed to proceed documented in this encounter [facility] 11-20-2024 Note HNO ID: [id number] Author: YRN HOLLAND MD Service: ? Author Type: Physician Type: Progress Notes Filed: 11/20/2024 19:10 Note Text: Chief Complaint Patient presents with: Gait Problem HPI Crissy Richter is a 69 year old male who presents here today for an acute visit. Pt contacted the office and spoke with Triage about an episode patient had over the weekend while hiking. noticed that patient was walking with his left shoulder lopsided. She asked him to straighten up, he told her he was but they were not. then said they went to go sit down, instead of sitting down patient fell down backwards. After a while patient was okay. At time of call patient states patient denied any symptoms. Crissy Richter is a 69-year-old male presenting for evaluation of a recent episode of altered awareness and confusion. Crissy experienced an episode of altered awareness and confusion while out hiking at [facility]. During the episode, his senior vice president noted that his shoulder appeared to be down, and he was leaning slightly backward while walking. He did not realize his shoulder was down and denies any weakness or numbness in his left arm or leg. He was able to move his arms and grab objects when asked. When attempting to sit down at a picnic table, he wobbled backward without bending his knees but did not fall or hit his head. He seemed confused about his body positioning but was able to answer questions and make eye contact. He denies any recent changes in medications, herbal supplements, or illicit drug use. He has been taking turmeric. The day before the episode, he was confused about the functionality of the car windows, thinking they were not working when they were. He denies any recent stress or changes at home. He has been drinking the same water as his senior vice president and denies any exposure to different water sources. 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 Past medical history, appointments, medications, allergies reviewed. Previous Medical History PAST MEDICAL HISTORY Diagnosis Date Advance directive discussed with patient 03/27/2022 Discussed 03/2022: patient to bring in copies AK (actinic keratosis) 01/28/2017 tearted with cryo 01/28/2017 Benign non-nodular prostatic hyperplasia without lower urinary tract symptoms 01/31/[address] White yearly and gets PSA's and prostate exam. 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 Oropharyngeal dysphagia 03/10/2023 swallowing exam 02/2023: [facility]: mild-Mod Osteoarthritis of finger of right hand 01/28/2017 PIP Severe anxiety 09/16/2021 Seeing PsychiatryDr Snavely Well adult exam 05/14/2016 Can have one per year, last done 02/23/2019 Previous Surgical History PAST SURGICAL HISTORY Procedure Laterality Date ARTHROSCOPY KNEE DIAGNOSTIC W/WO SYNOVIAL BX SPX 1999 Arthroscopy, knee Right x2 ARTHROSCOPY KNEE DIAGNOSTIC W/WO SYNOVIAL BX SPX 04/14/2006 left COLONOSCOPY 01/14/2018 Dr. Esteban, negative, recheck in 10 yrs COLONOSCOPY FLX DX W/COLLJ SPEC WHEN PFRMD 11/02/2008 repeat 10 yrs IMMUNOCHEMICAL FECAL OCCULT BLOOD TEST 02/03/2017 Negative Family History FAMILY HISTORY Problem Relation Age of Onset Cancer Mother pancreas, with mets to lungs, passed 05/2016 other (parkinson's disease) Father passed 2006 Patient Allergies ALLERGIES No Known Allergies Current Medications Current Outpatient Medications on File Prior to Visit Medication Sig atorvastatin (LIPITOR) 10 mg tablet Take 1 tablet by mouth once daily. tamsulosin (FLOMAX) 0.4 mg Take 1 capsule by mouth once daily. Per Urology: Dr. Jorge venlafaxine ER (EFFEXOR XR) 150 mg 24 hr capsule Take 2 capsules by mouth daily at bedtime. Per Psych, Dr. Barone mirtazapine (REMERON) 45 mg tablet Take 1 tablet by mouth daily at bedtime. Per Psych, Dr. Barone OLANZapine (ZYPREXA) 5 mg tablet Take 2 tablets by mouth daily at bedtime. Per Psych, Dr. Barone buPROPion XL (WELLBUTRIN XL) 150 mg 24 hr tablet Take 150 mg by mouth once daily. TURMERIC ORAL Take by mouth. Taking 1000 mg daily ib-zcw-sptzf acid (more content not included)... [facility] 11-20-2024 Telephone encounter Note calls and reports that they were hiking this weekend. had notices that patient was walking with his shoulders lopsided. told patient to straighten up his shoulders. Patient said he was straightening them which he was not. reports that they were then going to sit down on a bench. Instead of sitting patient started to fall backwards. After while patient was ok. Patient currently is ok with no symptoms. Advised that patient should be seen by provider. agreeable. Patient scheduled to see Dr. Holland today. Jayleen Mckeon RN [facility] 11-20-2024 Miscellaneous Notes calls and reports that they were hiking this weekend. had notices that patient was walking with his shoulders lopsided. told patient to straighten up his shoulders. Patient said he was straightening them which he was not. reports that they were then going to sit down on a bench. Instead of sitting patient started to fall backwards. After while patient was ok. Patient currently is ok with no symptoms. Advised that patient should be seen by provider. agreeable. Patient scheduled to see Dr. Holland today. Jayleen Mckeon RN documented in this encounter [facility] 10-30-2024 Telephone encounter Note Pt called in let him know that his next appointment is on 04/04/25. Let him know that his Lipitor was sent in on 10/12/24 and to call [facility] in [place]. Maryann Chen RN [facility] 10-30-2024 Miscellaneous Notes Pt called in let him know that his next appointment is on 04/04/25. Let him know that his Lipitor was sent in on 10/12/24 and to call [facility] in [place]. Maryann Chen RN documented in this encounter [facility] 09-25-2024 Note HNO ID: [id number] Author: TIERNEY DURAND RN Service: ? Author Type: Registered Nurse Type: Progress Notes Filed: 09/25/2024 09:03 Note Text: Value Based Care Coordination Chart Review Provider Action / FYI: Upon review of patient chart, the patient is excluded from Chronic Disease Management Patient is not a candidate for CDM at this time and placed in the following status: Deferred- No CDM DX Action taken: No action needed . Tierney Durand RN September 25, 2024 9:02 AM [facility] 09-25-2024 History of Present illness Narrative Value Based Care Coordination Chart Review Provider Action / FYI: Upon review of patient chart, the patient is excluded from Chronic Disease Management Patient is not a candidate for CDM at this time and placed in the following status: Deferred- No CDM DX Action taken: No action needed . Tierney Durand RN September 25, 2024 9:02 AM documented in this encounter [facility] 09-25-2024 Note Patient Outreach (AM [facility]) CRISSY RICHTER ([id number]) 1955 M Date Time Provider Department 09/25/24 TIERNEY DURAND [facility] During your visit today, we recorded the following information about you: Tierney Durand RN 09/25/2024 9:03 AM Signed Value Based Care Coordination Chart Review Provider Action / FYI: Upon review of patient chart, the patient is excluded from Chronic Disease Management Patient is not a candidate for CDM at this time and placed in the following status: Deferred- No CDM DX Action taken: No action needed . 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 Per Urology: Dr. Jorge - atorvastatin (LIPITOR) 10 mg tablet Take 1 tablet by mouth once daily. - venlafaxine ER (EFFEXOR XR) 150 mg 24 hr capsule Take 2 capsules by mouth daily at bedtime. Per Psych, Dr. Barone - mirtazapine (REMERON) 45 mg tablet Take 1 tablet by mouth daily at bedtime. Per Psych, Dr. Snavely - OLANZapine (ZYPREXA) 5 mg tablet Take 2 tablets by mouth daily at bedtime. Per Psych, Dr. Barone - buPROPion XL (WELLBUTRIN XL) 150 mg 24 hr tablet Take 150 mg by mouth once daily. - TURMERIC ORAL Take by mouth. Taking 1000 mg daily - ok-cdb-bihyd acid-lutein (CENTRUM SILVER) 400-250 mcg chew Take 1 tablet by mouth once daily. 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] 01/31/2007 Benign non-nodular prostatic hyperplasia withou*01/31/2007 Microscopic hematuria [R31.29] 11/19/2008 Disorder of prostate [N42.9] 05/07/2016 Osteoarthritis of finger of right hand [M19.041]01/28/2017 AK (actinic keratosis) [L57.0] 01/28/2017 Screening for colon cancer [Z12.11] 01/28/2017 Hydrocele, right [N43.3] 02/15/2018 Elevated hemoglobin A1c [R73.09] 02/16/2018 Encounter for Medicare annual wellness exam [Z0*02/26/2021 Dyslipidemia [E78.5] 02/27/2021 Major depressive disorder, recurrent episode, s*07/30/2021 Severe anxiety [F41.9] 09/16/2021 Medication management [Z79.899] 03/16/[address] [Z78.9] 03/27/2022 Advance directive discussed with patient [Z71.8*03/27/2022 Bilateral carotid artery stenosis [I65.23] 07/02/2022 Oropharyngeal dysphagia [R13.12] 03/10/2023 Encounter Status:Closed by TIERNEY DURAND on 09/25/24 [facility] 08-16-2024 Note HNO ID: [id number] Author: TAHIR ROJAS MA Service: ? Author Type: Technical Analyst Type: Progress Notes Filed: 08/16/2024 14:51 Note Text: POPULATION HEALTH NAVIGATION OUTREACH Action/FYI Gaps due: FU LVM, Sent mcm, updated notes. Reason for Outreach Care Gap/HCC or Scheduling Wellness Visits Care Gaps due: Follow-up Appointment Patient Contacted: Unable or unnecessary to reach patient: Left message [employer] message sent Updated appointment notes Navigation Signature: Tahir Rojas MA August 16, 2024 2:50 PM [facility] 08-16-2024 History of Present illness Narrative POPULATION HEALTH NAVIGATION OUTREACH Action/FYI Gaps due: FU LVM, Sent mcm, updated notes. Reason for Outreach Care Gap/HCC or Scheduling Wellness Visits Care Gaps due: Follow-up Appointment Patient Contacted: Unable or unnecessary to reach patient: Left message MyChart message sent Updated appointment notes Navigation Signature: Tahir Rojas MA August 16, 2024 2:50 PM documented in this encounter [facility] 08-16-2024 Note Patient Outreach (NE TNAV) CRISSY RICHTER ([id number]) 1955 M Date Time Provider Department 08/16/24 TAHIR ROJAS During your visit today, we recorded the following information about you: Tahir Rojas MA 08/16/2024 2:51 PM Signed POPULATION HEALTH NAVIGATION OUTREACH Action/FYI Gaps due: FU LVM, Sent [facility], updated notes. Reason for Outreach Care Gap/HCC or Scheduling Wellness Visits Care Gaps due: Follow-up Appointment Patient Contacted: Unable or unnecessary to reach patient: Left message MyChart message sent Updated appointment notes Navigation Signature: Tahir Rojas MA August 16, 2024 2:50 PM Allergies As of Date: 08/16/2024 (No Known Allergies) Date Reviewed: 05/10/2024 Reviewed by: Lisa Robin LPN - Fully Assessed Reason for Visit: Population Health Navigation Outreach [3910] Cmt: [employer] high risk attempt 2 Prescriptions as of 08/16/2024 - tamsulosin (FLOMAX) 0.4 mg Take 1 capsule by mouth once daily. Per Urology: Dr. Prano - atorvastatin (LIPITOR) 10 mg tablet Take 1 tablet by mouth once daily. - venlafaxine ER (EFFEXOR XR) 150 mg 24 hr capsule Take 2 capsules by mouth daily at bedtime. Per Psych, Dr. Barone - mirtazapine (REMERON) 45 mg tablet Take 1 tablet by mouth daily at bedtime. Per Psych, Dr. Barone - OLANZapine (ZYPREXA) 5 mg tablet Take 2 tablets by mouth daily at bedtime. Per Psych, Dr. Barone - buPROPion XL (WELLBUTRIN XL) 150 mg 24 hr tablet Take 150 mg by mouth once daily. - TURMERIC ORAL Take by mouth. Taking 1000 mg daily - lv-pth-zukgv acid-lutein (CENTRUM SILVER) 400-250 mcg chew Take 1 tablet by mouth once daily. 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] 01/31/2007 Benign non-nodular prostatic hyperplasia withou*01/31/2007 Microscopic hematuria [R31.29] 11/19/2008 Disorder of prostate [N42.9] 05/07/2016 Osteoarthritis of finger of right hand [M19.041]01/28/2017 AK (actinic keratosis) [L57.0] 01/28/2017 Screening for colon cancer [Z12.11] 01/28/2017 Hydrocele, right [N43.3] 02/15/2018 Elevated hemoglobin A1c [R73.09] 02/16/2018 Encounter for Medicare annual wellness exam [Z0*02/26/2021 Dyslipidemia [E78.5] 02/27/2021 Major depressive disorder, recurrent episode, s*07/30/2021 Severe anxiety [F41.9] 09/16/2021 Medication management [Z79.899] 03/16/[address] [Z78.9] 03/27/2022 Advance directive discussed with patient [Z71.8*03/27/2022 Bilateral carotid artery stenosis [I65.23] 07/02/2022 Oropharyngeal dysphagia [R13.12] 03/10/2023 Encounter Status:Closed by TAHIR ROJAS on 08/16/24 [facility] 08-10-2024 Note HNO ID: [id number] Author: DAKOTA STAHL MA Service: ? Author Type: Technical Analyst Type: Progress Notes Filed: 08/10/2024 15:55 Note Text: POPULATION HEALTH NAVIGATION OUTREACH Action/FYI Due to patient being on high risk list it is recommended they have 2 appointments per calendar year. P/C to schedule 6 month recheck, no answer. Left message for patient to return call. My chart message sent. Reason for Outreach Care Gap/HCC or Scheduling Wellness Visits Care Gaps due: Follow-up Appointment Patient Contacted: Unable or unnecessary to reach patient: Left message [employer] message sent Navigation Signature: Dakota Stahl MA August 10, 2024 3:54 PM [facility] 08-10-2024 History of Present illness Narrative POPULATION HEALTH NAVIGATION OUTREACH Action/FYI Due to patient being on high risk list it is recommended they have 2 appointments per calendar year. P/C to schedule 6 month recheck, no answer. Left message for patient to return call. My chart message sent. Reason for Outreach Care Gap/HCC or Scheduling Wellness Visits Care Gaps due: Follow-up Appointment Patient Contacted: Unable or unnecessary to reach patient: Left message [employer] message sent Navigation Signature: Dakota Stahl MA August 10, 2024 3:54 PM documented in this encounter [facility] 08-10-2024 Note Patient Outreach (NE TNAV) CRISSY RICHTER ([id number]) 1955 M Date Time Provider Department 08/10/24 DAKOTA STAHL During your visit today, we recorded the following information about you: Dakota Stahl MA 08/10/2024 3:55 PM Signed POPULATION HEALTH NAVIGATION OUTREACH Action/FYI Due to patient being on high risk list it is recommended they have 2 appointments per calendar year. P/C to schedule 6 month recheck, no answer. Left message for patient to return call. My chart message sent. Reason for Outreach Care Gap/HCC or Scheduling Wellness Visits Care Gaps due: Follow-up Appointment Patient Contacted: Unable or unnecessary to reach patient: Left message MyChart message sent Navigation Signature: Dakota Stalh MA August 10, 2024 3:54 PM Allergies As of Date: 08/10/2024 (No Known Allergies) Date Reviewed: 05/10/2024 Reviewed by: Lisa Robin LPN - Fully Assessed Reason for Visit: Population Health Navigation Outreach [3910] Cmt: [employer] High Risk- Attempt 1 Prescriptions as of 08/10/2024 - tamsulosin (FLOMAX) 0.4 mg Take 1 capsule by mouth once daily. Per Urology: Dr. Jorge - atorvastatin (LIPITOR) 10 mg tablet Take 1 tablet by mouth once daily. - venlafaxine ER (EFFEXOR XR) 150 mg 24 hr capsule Take 2 capsules by mouth daily at bedtime. Per Psych, Dr. Barone - mirtazapine (REMERON) 45 mg tablet Take 1 tablet by mouth daily at bedtime. Per Psych, Dr. Barone - OLANZapine (ZYPREXA) 5 mg tablet Take 2 tablets by mouth daily at bedtime. Per Psych, Dr. Barnoe - buPROPion XL (WELLBUTRIN XL) 150 mg 24 hr tablet Take 150 mg by mouth once daily. - TURMERIC ORAL Take by mouth. Taking 1000 mg daily - zs-lvw-bgfbi acid-lutein (CENTRUM SILVER) 400-250 mcg chew Take 1 tablet by mouth once daily. 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] 01/31/2007 Benign non-nodular prostatic hyperplasia withou*01/31/2007 Microscopic hematuria [R31.29] 11/19/2008 Disorder of prostate [N42.9] 05/07/2016 Osteoarthritis of finger of right hand [M19.041]01/28/2017 AK (actinic keratosis) [L57.0] 01/28/2017 Screening for colon cancer [Z12.11] 01/28/2017 Hydrocele, right [N43.3] 02/15/2018 Elevated hemoglobin A1c [R73.09] 02/16/2018 Encounter for Medicare annual wellness exam [Z0*02/26/2021 Dyslipidemia [E78.5] 02/27/2021 Major depressive disorder, recurrent episode, s*07/30/2021 Severe anxiety [F41.9] 09/16/2021 Medication management [Z79.899] 03/16/[address] [Z78.9] 03/27/2022 Advance directive discussed with patient [Z71.8*03/27/2022 Bilateral carotid artery stenosis [I65.23] 07/02/2022 Oropharyngeal dysphagia [R13.12] 03/10/2023 Encounter Status:Closed by DAKOTA STAHL on 08/10/24 [facility] 07-25-2024 Note HNO ID: [id number] Author: LISA ROBIN LPN Service: ? Author Type: LICENSED NURSE Type: Progress Notes Filed: 07/25/2024 07:14 Note Text: Scan on 07/24/2024 3:47 PM by Dahlia Barakat PA-C: Consultation - [facility] 07-25-2024 History of Present illness Narrative Scan on 07/24/2024 3:47 PM by Dahlia Barakat PA-C: Consultation - documented in this encounter [facility] 07-24-2024 Note HNO ID: [id number] Author: LISA ROBIN LPN Service: ? Author Type: LICENSED NURSE Type: Progress Notes Filed: 07/24/2024 12:18 Note Text: Scan on 07/24/2024 12:09 PM by Dahlia Barakat PA-C: Chemistry [facility] 07-24-2024 History of Present illness Narrative Scan on 07/24/2024 12:09 PM by Dahlia Barakat PA-C: Chemistry documented in this encounter [facility] 05-11-2024 Telephone encounter Note The following approved medication requests have been transmitted electronically. Requested Prescriptions Signed Prescriptions Disp Refills atorvastatin (LIPITOR) 10 mg tablet 30 tablet 5 Sig: Take 1 tablet by mouth once daily. Authorizing Provider: YRN HOLLAND MD [facility] 05-11-2024 Miscellaneous Notes The following approved medication requests have been transmitted electronically. Requested Prescriptions Signed Prescriptions Disp Refills atorvastatin (LIPITOR) 10 mg tablet 30 tablet 5 Sig: Take 1 tablet by mouth once daily. Authorizing Provider: YRN HOLLAND MD Patient phoned to ask pcp to send the atorvastatin 10 mg daily to [facility]. States he is concerned about his cholesterol levels, and pcp had recommended this a few weeks ago. Pended Rx documented in this encounter [facility] 05-11-2024 Telephone encounter Note Patient phoned to ask pcp to send the atorvastatin 10 mg daily to [facility]. States he is concerned about his cholesterol levels, and pcp had recommended this a few weeks ago. Pended Rx [facility] 05-10-2024 Note HNO ID: [id number] Author: FELECIA QUIROZ PA-C Service: ? 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 Patient was seen for wellness exam on 04/19 and his BP was elevated. No past hx of HTN and not on medication for BP. No other concerns today Past medical history, appointments, medications, allergies reviewed. Previous Medical History PAST MEDICAL HISTORY Diagnosis Date Advance directive discussed with patient 03/27/2022 Discussed 03/2022: patient to bring in copies [place] (actinic keratosis) 01/28/2017 tearted with cryo 01/28/2017 Benign non-nodular prostatic hyperplasia without lower urinary tract symptoms 01/31/[address] White yearly and gets PSA's and prostate exam. 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 Internal hemorrhoids without mention of complication Living will in place 03/27/2022 DPA: Tiffanie () Major depressive disorder, recurrent episode, severe with anxious distress (HCC) 07/30/2021 Seeing Psychiatry, Lizabeth Baumann Medicare annual wellness visit, initial 02/26/2021 Medicare Part b: Last done: 02/26/2021 Microscopic hematuria 11/19/2008 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 Esteban, negative, recheck in 10 yrs COLONOSCOPY FLX DX W/COLLJ SPEC WHEN PFRMD 11/02/2008 repeat 10 yrs FECAL OCCULT BLOOD TEST 02/03/2017 Negative Family History FAMILY HISTORY Problem Relation Age of Onset Cancer Mother pancreas, with mets to lungs, passed 05/2016 other (parkinson's disease) Father passed 2006 Patient Allergies ALLERGIES No Known Allergies Current Medications Current Outpatient Medications on File Prior to Visit Medication Sig venlafaxine ER (EFFEXOR XR) 150 mg 24 hr capsule Take 2 capsules by mouth daily at bedtime. Per Psych, Dr. Barone mirtazapine (REMERON) 45 mg tablet Take 1 tablet by mouth daily at bedtime. Per Psych, Dr. Barone OLANZapine (ZYPREXA) 5 mg tablet Take 2 tablets by mouth daily at bedtime. Per Psych, Dr. Barone buPROPion XL (WELLBUTRIN XL) 150 mg 24 hr tablet Take 150 mg by mouth once daily. tamsulosin (FLOMAX) 0.4 mg Take 0.4 mg by mouth once daily. TURMERIC ORAL Take by mouth. Taking 1000 mg daily mi-qcc-rutxt acid-lutein (CENTRUM SILVER) 400-250 mcg chew Take 1 tablet by mouth once daily. No current facility-administered medications on file prior to visit. Social History Social History Tobacco Use Smoking status: Never Smokeless tobacco: Never Substance Use Topics Alcohol use: No Drug use: No Review of Symptoms REVIEW OF SYSTEMS GENERAL: No weight loss, malaise or fevers EXAM: BP 122/81 (BP Site: Left Arm, BP Position: Sitting, BP Cuff Size: Regular Adult) Pulse 89 Temp 36.2 ?C (97.1 ?F) Resp 18 Wt 78.9 kg (174 lb) SpO2 99% BMI 25.33 kg/m? BP 117/77 Pulse 89 Temp 36.2 ?C (97.1 ?F) Resp 18 Wt 78.9 kg (174 lb) SpO2 99% BMI 25.33 kg/m? General Appearance: Well appearing, alert, in no acute distress, well-hydrated, well nourished.. Health Maintenance List Diabetes Screening due on 04/19/2027 Colorectal Cancer Screening due on 01/15/2028 Prostate Cancer Screening Discussion due on 07/13/2028 Lipid Screening due on 04/19/2029 RSV Vaccine(1 - 1-dose 75+ series) due on 2030 DTaP,Tdap,Td Vaccine(4 - Td or Tdap) due on 07/26/2033 Influenza Vaccine Completed Advance Directive Discussion Completed Shingrix Vaccine Completed Covid-19 Vaccine Completed Pneumococcal Vaccine: 50+ Completed Hepatitis C Screening Discontinued Data reviewed ASSESSMENT/PLAN: 1. Elevated blood pressure reading without diagnosis of hypertension - ICD9: 796.2, ICD10: R03.0 - Resolved. - BP is back in normal range today. - will continue to monitor. - advised if his BP is ever elevated at other offices, he can return for recheck. Otherwise keep follow up as scheduled next year. Felecia Quiroz PA-C [facility] 05-10-2024 History of Present illness Narrative Chief Complaint Patient presents with: Follow Up: Blood pressure HPI Crissy Richter is a 68 year old male who presents here today for BP recheck. Patient was seen for wellness exam on 04/19 and his BP was elevated. No past hx of HTN and not on medication for BP. No other concerns today Past medical history, appointments, medications, allergies reviewed. Previous Medical History PAST MEDICAL HISTORY Diagnosis Date Advance directive discussed with patient 03/27/2022 Discussed 03/2022: patient to bring in copies [place] (actinic keratosis) 01/28/2017 tearted with cryo 01/28/2017 Benign non-nodular prostatic hyperplasia without lower urinary tract symptoms 01/31/[address] White yearly and gets PSA's and prostate exam. 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 Internal hemorrhoids without mention of complication Living will in place 03/27/2022 DPA: Tiffanie () Major depressive disorder, recurrent episode, severe with anxious distress (HCC) 07/30/2021 Seeing PsychiatryDr Snavely Medicare annual wellness visit, initial 02/26/2021 Medicare Part b: Last done: 02/26/2021 Microscopic hematuria 11/19/2008 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 Esteban, negative, recheck in 10 yrs COLONOSCOPY FLX DX W/COLLJ SPEC WHEN PFRMD 11/02/2008 repeat 10 yrs FECAL OCCULT BLOOD TEST 02/03/2017 Negative Family History FAMILY HISTORY Problem Relation Age of Onset Cancer Mother pancreas, with mets to lungs, passed 05/2016 other (parkinson's disease) Father passed 2006 Patient Allergies ALLERGIES No Known Allergies Current Medications Current Outpatient Medications on File Prior to Visit Medication Sig venlafaxine ER (EFFEXOR XR) 150 mg 24 hr capsule Take 2 capsules by mouth daily at bedtime. Per Psych, Dr. Barone mirtazapine (REMERON) 45 mg tablet Take 1 tablet by mouth daily at bedtime. Per Psych, Dr. Barone OLANZapine (ZYPREXA) 5 mg tablet Take 2 tablets by mouth daily at bedtime. Per Psych, Dr. Barone buPROPion XL (WELLBUTRIN XL) 150 mg 24 hr tablet Take 150 mg by mouth once daily. tamsulosin (FLOMAX) 0.4 mg Take 0.4 mg by mouth once daily. TURMERIC ORAL Take by mouth. Taking 1000 mg daily wb-idk-nnbrk acid-lutein (CENTRUM SILVER) 400-250 mcg chew Take 1 tablet by mouth once daily. No current facility-administered medications on file prior to visit. Social History Social History Tobacco Use Smoking status: Never Smokeless tobacco: Never Substance Use Topics Alcohol use: No Drug use: No Review of Symptoms REVIEW OF SYSTEMS GENERAL: No weight loss, malaise or fevers EXAM: BP 122/81 (BP Site: Left Arm, BP Position: Sitting, BP Cuff Size: Regular Adult) Pulse 89 Temp 36.2 C (97.1 F) Resp 18 Wt 78.9 kg (174 lb) SpO2 99% BMI 25.33 kg/m BP 117/77 Pulse 89 Temp 36.2 C (97.1 F) Resp 18 Wt 78.9 kg (174 lb) SpO2 99% BMI 25.33 kg/m General Appearance: Well appearing, alert, in no acute distress, well-hydrated, well nourished.. Health Maintenance List Diabetes Screening due on 04/19/2027 Colorectal Cancer Screening due on 01/15/2028 Prostate Cancer Screening Discussion due on 07/13/2028 Lipid Screening due on 04/19/2029 RSV Vaccine(1 - 1-dose 75+ series) due on 2030 DTaP,Tdap,Td Vaccine(4 - Td or Tdap) due on 07/26/2033 Influenza Vaccine Completed Advance Directive Discussion Completed Shingrix Vaccine Completed Covid-19 Vaccine Completed Pneumococcal Vaccine: 50+ Completed Hepatitis C Screening Discontinued Data reviewed ASSESSMENT/PLAN: 1. Elevated blood pressure reading without diagnosis of hypertension - ICD9: 796.2, ICD10: R03.0 - Resolved. - BP is back in normal range today. - will continue to monitor. - advised if his BP is ever elevated at other offices, he can return for recheck. Otherwise keep follow up as scheduled next year. Felecia Quiroz PA-C documented in this encounter [facility] 04-24-2024 Telephone encounter Note Noted. [facility] 04-24-2024 Miscellaneous Notes Noted. Patient notified and voiced understanding. came on phone and indicated she was concerned about his medication and that did we contact his pharmacy to find out the medications he is on. I told her Dr. Holland reviews the medications. She indicated that said we didn't review them. I let her know I review the medications along with Dr Holland during his visit. She said he is forgetful. Patient came back on phone. I suggested to patient if he is unable to remember or pronouce the medications. Just to bring I a detailed list or the medications bottles of ALL his medication. He voiced understanding. Patient also has an upcoming appointment with Felecia. He will bring his medication list and discuss starting the new medication. Kemi Woo MA Let patient know all his recent labs and UA were good except his LDL (bal chol) continues to be high. Currently;y at 179 (goal<130 and was 164). His 10 year risk of a heart attack of stroke is about 23% which is an increase from 18% 10 months ago. Would strongly advise we start atorvastatin 10 mg a day to lesson this risk. documented in this encounter [facility] 04-21-2024 Telephone encounter Note Patient notified and voiced understanding. came on phone and indicated she was concerned about his medication and that did we contact his pharmacy to find out the medications he is on. I told her Dr. Holland reviews the medications. She indicated that said we didn't review them. I let her know I review the medications along with Dr Holland during his visit. She said he is forgetful. Patient came back on phone. I suggested to patient if he is unable to remember or pronouce the medications. Just to bring I a detailed list or the medications bottles of ALL his medication. He voiced understanding. Patient also has an upcoming appointment with Felecia. He will bring his medication list and discuss starting the new medication. Kemi Woo MA [facility] 04-20-2024 Telephone encounter Note Let patient know all his recent labs and UA were good except his LDL (bal chol) continues to be high. Currently;y at 179 (goal<130 and was 164). His 10 year risk of a heart attack of stroke is about 23% which is an increase from 18% 10 months ago. Would strongly advise we start atorvastatin 10 mg a day to lesson this risk. [facility] 04-19-2024 Instructions Yrn Holland MD - 04/19/2024 2:26 PM EST Please bring in copies of your power of underground utility locator for health care and living will. Screening schedule The following prevention plan is recommended: Advance Directive Discussion due on 05/24/2023 Influenza Vaccine(1) due on 01/23/2024 Covid-19 Vaccine( season) due on 01/23/2024 WHAT YOU CAN DO TO PREVENT FALLS Many falls can be prevented. By making some changes, you can lower your chances of falling. Four things YOU can do to prevent falls for you* and your caregiver 1. Begin a regular exercise program Exercise is one of the most important ways to lower your chances of falling. It makes you stronger and helps you feel better. Exercises that improve balance and coordination (like Kiko Chi) are the most helpful. Lack of exercise leads to weakness and increases your chances of falling. Ask your doctor or health care provider about the best type of exercise program for you. 2. Have your health care provider review your medicines Have your doctor or pharmacist review all the medicines you take, even nvxm-hro-yklirus medicines. As you get older, the way medicines work in your body can change. Some medicines, or combinations of medicines, can make you sleepy or dizzy and can cause you to fall. 3. Have your vision checked Have your eyes checked by an eye doctor at least once a year. You may be wearing the wrong glasses or have a condition like glaucoma or cataracts that limits your vision. Poor vision can increase your chances of falling. 4. Make your home safer About half of all falls happen at home. To make your home safer: Remove things you can trip over (like papers, books, clothes, and shoes) from stairs and places where you walk. Remove small throw rugs or use double-sided tape to keep the rugs from slipping. Keep items you use often in cabinets you can reach easily without using a step stool. Have grab bars put in next to your toilet and in the tub or shower. Use non-slip mats in the bathtub and on shower floors. Improve the lighting in your home. As you get older, you need brighter lights to see well. Hang light-weight curtains or shades to reduce glare. Have handrails and lights put in on all staircases. Wear shoes both inside and outside the house. Avoid going barefoot or wearing slippers. For more information, contact: Centers for Disease Control and Prevention www.cdc.gov/injury * This information may not apply if you have certain medical conditions. documented in this encounter [facility] 04-19-2024 Note HNO ID: [id number] Author: YRN HOLLAND MD Service: ? Author Type: Physician Type: Progress Notes Filed: 04/20/2024 12:53 Note Text: Crissy Richter is a 68 year old male here for a Medicare wellness visit. Medicare Health Risk Assessment General Health Good Exercise: Minutes/Day 80 min Exercise: Days/Week 3 days Alcohol: Daily Use Never Alcohol: Drinks/Day Patient does not drink Alcohol: 6 or more drinks Never Feel off balance Yes Concerns: Teeth/Dentures No Concerns: Sexual function No Troubled by feelings Anxious Frequency: Eating healthy diet Several days ADLs requiring help None of the above Safety precautions in home/vehicle Yes (no grab bars in bathroom) Smoke, vape, chews tobacco No Difficulty hearing Yes Difficulty seeing No Current Providers Specialists: I have reviewed specialist-related care of the patient in the medical record. Current care team: Patient Care Team: Yrn Holland MD as PCP - General (Family Medicine) Dr. Jorge: Urology Dr. Barone: Psych optho Medical/Family history review Reviewed and updated problem list, medical/surgical/family/social history, medications, and allergies. Opioid use review Opioid Medications (last 90 days) No data to display Depression Screening PHQ-2 Score: 1 Cognitive screening Score: 5 Cognitive screening reviewed and No further action needed (score 3-5). Functional Observation Was the patient's Timed Up AND Go test unsteady or >= 12 seconds? No Advance Care Planning Surrogate decision maker and/or advance care plan documented Measurements BP 162/84 Pulse 88 Resp 18 Ht 176.5 cm (5' 9.5") Wt 77.6 kg (171 lb) BMI 24.89 kg/m? Vision Screening: Follows with optometry/ophthalmology Assessment/Plan Medicare annual wellness visit, subsequent (Z00.00) - Counseled on healthy diet and regular exercise - Fall avoidance information provided - Personalized prevention plan provided See Below Chief Complaint Patient presents with: Medicare Wellness Exam HPI Crissy Richter is a 68 year old male who presents here today for Chronic Medical Conditions. and Medicare Annual Visit. Patient with Hx of major depression, sever anxiety seeing psych, dyslipidemia, elevated A1c, BPH as well as those reviewed and addressed below and in ROS. Patient indicated that he thinks he is taking Effexor (2) tablets at bedtime. Patient sees Dr. Jorge last visit - 06/2023 Past medical history, appointments, medications, allergies reviewed. Previous Medical History PAST MEDICAL HISTORY Diagnosis Date Advance directive discussed with patient 03/27/2022 Discussed 03/2022: patient to bring in copies [place] (actinic keratosis) 01/28/2017 tearted with cryo 01/28/2017 Benign non-nodular prostatic hyperplasia without lower urinary tract symptoms 01/31/[address] White yearly and gets PSA's and prostate exam. 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 Internal hemorrhoids without mention of complication Living will in place 03/27/2022 DPA: Tiffanie () Major depressive disorder, recurrent episode, severe with anxious distress (HCC) 07/30/2021 Seeing PsychiatryDr Snavely Medicare annual wellness visit, initial 02/26/2021 Medicare Part b: Last done: 02/26/2021 Microscopic hematuria 11/19/2008 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 Esteban, negative, recheck in 10 yrs COLONOSCOPY FLX DX W/COLLJ SPEC WHEN PFRMD 11/02/2008 repeat 10 yrs FECAL OCCULT BLOOD TEST 02/03/2017 Negative Family History FAMILY HISTORY Problem Relation Age of Onset Cancer Mother pancreas, with mets to lungs, passed 05/2016 other (parkinson's disease) Father passed 2006 Patient Allergies ALLERGIES No Known Allergies Current Medications Current Outpatient Medications on File Prior to Visit Medication Sig OLANZapine (ZYPREXA) 5 mg tablet Take 2 tablets by mouth daily at bedtime. Per Psych, Dr. Barone buPROPion XL (WELLBUTRIN XL) 150 mg 24 hr tablet Take 150 mg by mouth once daily. tamsulosin (FLOMAX) 0.4 mg Take 0.4 mg by mouth once daily. venlafaxine ER (EFFEXOR XR) 75 mg 24 hr (more content not included)... [facility] 04-19-2024 History of Present illness Narrative Crissy Richter is a 68 year old male here for a Medicare wellness visit. Medicare Health Risk Assessment General Health Good Exercise: Minutes/Day 80 min Exercise: Days/Week 3 days Alcohol: Daily Use Never Alcohol: Drinks/Day Patient does not drink Alcohol: 6 or more drinks Never Feel off balance Yes Concerns: Teeth/Dentures No Concerns: Sexual function No Troubled by feelings Anxious Frequency: Eating healthy diet Several days ADLs requiring help None of the above Safety precautions in home/vehicle Yes (no grab bars in bathroom) Smoke, vape, chews tobacco No Difficulty hearing Yes Difficulty seeing No Current Providers Specialists: I have reviewed specialist-related care of the patient in the medical record. Current care team: Patient Care Team: Yrn Holland MD as PCP - General (Family Medicine) Dr. Jorge: Urology Dr. Barone: Psych optho Medical/Family history review Reviewed and updated problem list, medical/surgical/family/social history, medications, and allergies. Opioid use review Opioid Medications (last 90 days) No data to display Depression Screening PHQ-2 Score: 1 Cognitive screening Score: 5 Cognitive screening reviewed and No further action needed (score 3-5). Functional Observation Was the patient's Timed Up & Go test unsteady or >= 12 seconds? No Advance Care Planning Surrogate decision maker and/or advance care plan documented Measurements BP 162/84 Pulse 88 Resp 18 Ht 176.5 cm (5' 9.5") Wt 77.6 kg (171 lb) BMI 24.89 kg/m Vision Screening: Follows with optometry/ophthalmology Assessment/Plan Medicare annual wellness visit, subsequent (Z00.00) - Counseled on healthy diet and regular exercise - Fall avoidance information provided - Personalized prevention plan provided See Below Chief Complaint Patient presents with: Medicare Wellness Exam HPI Crissy Richter is a 68 year old male who presents here today for Chronic Medical Conditions. and Medicare Annual Visit. Patient with Hx of major depression, sever anxiety seeing psych, dyslipidemia, elevated A1c, BPH as well as those reviewed and addressed below and in ROS. Patient indicated that he thinks he is taking Effexor (2) tablets at bedtime. Patient sees Dr. Jorge last visit - 06/2023 Past medical history, appointments, medications, allergies reviewed. Previous Medical History PAST MEDICAL HISTORY Diagnosis Date Advance directive discussed with patient 03/27/2022 Discussed 03/2022: patient to bring in copies [place] (actinic keratosis) 01/28/2017 tearted with cryo 01/28/2017 Benign non-nodular prostatic hyperplasia without lower urinary tract symptoms 01/31/[address] White yearly and gets PSA's and prostate exam. 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 Internal hemorrhoids without mention of complication Living will in place 03/27/2022 DPA: Tiffanie () Major depressive disorder, recurrent episode, severe with anxious distress (HCC) 07/30/2021 Seeing Psychiatry, Lizabeth Baumann Medicare annual wellness visit, initial 02/26/2021 Medicare Part b: Last done: 02/26/2021 Microscopic hematuria 11/19/2008 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 Esteban, negative, recheck in 10 yrs COLONOSCOPY FLX DX W/COLLJ SPEC WHEN PFRMD 11/02/2008 repeat 10 yrs FECAL OCCULT BLOOD TEST 02/03/2017 Negative Family History FAMILY HISTORY Problem Relation Age of Onset Cancer Mother pancreas, with mets to lungs, passed 05/2016 other (parkinson's disease) Father passed 2006 Patient Allergies ALLERGIES No Known Allergies Current Medications Current Outpatient Medications on File Prior to Visit Medication Sig OLANZapine (ZYPREXA) 5 mg tablet Take 2 tablets by mouth daily at bedtime. Per PsychDr. Barone buPROPion XL (WELLBUTRIN XL) 150 mg 24 hr tablet Take 150 mg by mouth once daily. tamsulosin (FLOMAX) 0.4 mg Take 0.4 mg by mouth once daily. venlafaxine ER (EFFEXOR XR) 75 mg 24 hr capsule Take 2 capsules by mouth twice daily. Per PsychDr. Barone (Patient taking differently: Take 150 mg by mouth two times a day. Taking 300 mg at bedtime. Per Psych, Dr. Barone) TURMERIC ORAL Take by mouth. Taking 1000 mg daily mirtazapine (REMERON) 15 mg tablet Take 1 tablet by mouth daily at bedtime. Per PsychDr. Barone (Patient taking differently: Take 45 mg by mouth daily at bedtime. Per Psych, Dr. Barone) do-xdj-wvgaf acid-lutein (CENTRUM SILVER) 400-250 mcg chew Take 1 tablet by mouth once daily. No current facility-administered medications on file prior to visit. Social History Social History Tobacco Use Smoking status: Never Smokeless tobacco: Never Substance Use Topics Alcohol use: No Drug use: No Review of Symptoms REVIEW OF SYSTEMS GENERAL: No weight loss, malaise or fevers HEENT: Negative for frequent or significant headaches, No changes in hearing or vision, no nose bleeds or other nasal problems NECK: Negative for lumps, goiter, pain and significant neck swelling CARDIOVASCULAR: Negative for chest pain, leg swelling, hypertension, CHF or palpitations GI: No nausea, vomiting, or diarrhea, No heartburn or reflux symptoms, and no blood : No history of dysuria,blood MUSCULOSKELETAL: some wrist pain and knee pain at times. SKIN: Negative for lesions, rash, and itching PSYCH: on meds and managed by Psych HEMATOLOGY/LYMPHOLOGY: Negative for prolonged bleeding, bruising easily or swollen nodes ENDOCRINE: Negative for cold or heat intolerance, polyuria, polydipsia and goiter NEURO: No history of headaches, syncope, paralysis, seizures or tremors EXAM: BP 162/84 Pulse 88 Resp 18 Ht 176.5 cm (5' 9.5") Wt 77.6 kg (171 lb) BMI 24.89 kg/m BP 160/94 Pulse 88 Resp 18 Ht 176.5 cm (5' 9.5") Wt 77.6 kg (171 lb) BMI 24.89 kg/m BP 156/94 Pulse 88 Resp 18 Ht 176.5 cm (5' 9.5") Wt 77.6 kg (171 lb) BMI 24.89 kg/m Last 5 Encounter Wt Readings: Date: Wt: 04/19/2024 77.6 kg (171 lb) 03/31/2023 76.7 kg (169 lb) 02/02/2023 75.3 kg (166 lb) 07/15/2022 74.7 kg (164 lb 9.6 oz) 06/24/2022 73.6 kg (162 lb 3.2 oz) General Appearance: Well appearing, alert, in no acute distress, well-hydrated, well nourished.. Skin: Not examined. Seeing derm Head: Normocephalic, no masses, lesions, tenderness or abnormalities. Eyes: Anicteric sclera. Pupils are equally round and reactive to light. Extraocular movements are intact. . Ears: External ears, TM's normal, canals clear. Nose/Sinuses: Nares normal, septum midline, mucosa normal, no drainage or sinus tenderness. Oropharynx: Lips, mucosa, and tongue normal, teeth and gums normal, oropharynx normal. Neck: Supple, no adenopathy; thyroid symmetric, normal size, no bruits. Lungs: Lungs clear to auscultation. No wheezing, rhonchi, rales.. Heart: RRR without murmur, gallop, or rubs. No ectopy. Abdomen: Normal abdominal exam, Abdomen soft, non-tender. Bowel sounds normal. No masses, organomegaly. Extremities: No deformities, edema, skin discoloration, Good capillary refill. . Peripheral Pulses: Normal. Neurologic: Gait normal. Reflexes normal and symmetric. Sensation grossly intact.. Genitalia: Normal, Penis normal. No urethral discharge. Scrotum normal to palpation. No hernia.. Rectal: slightly enlarged prostate with smooth firm capsule. Health Maintenance List Advance Directive Discussion due on 05/24/2023 Influenza Vaccine(1) due on 01/23/2024 Covid-19 Vaccine( season) due on 01/23/2024 Diabetes Screening due on 03/31/2026 Colorectal Cancer Screening due on 01/15/2028 Lipid Screening due on 03/31/2028 Prostate Cancer Screening Discussion due on 07/13/2028 RSV Vaccine(1 - 1-dose 75+ series) due on 2030 DTaP,Tdap,Td Vaccine(4 - Td or Tdap) due on 07/26/2033 Shingrix Vaccine Completed Pneumococcal Vaccine: 65+ Completed Hepatitis C Screening Discontinued Data reviewed A/P ASSESSMENT/PLAN: 1. Encounter for Medicare annual wellness exam - ICD9: V70.0, ICD10: Z00.00 (primary diagnosis) - Counseled on healthy diet and regular exercise - Patient counseled on and acknowledged vaccine benefits/risks/side effects; VIS provided: COVID-19 and Influenza - Follow up for annual exam in one year 2. Dyslipidemia - ICD9: 272.4, ICD10: E78.5 - Control undetermined, due for labs - Counseled on healthy diet and regular exercise Check - COMPREHENSIVE METABOLIC PANEL - URINALYSIS, WITH MICROSCOPIC - LIPID PANEL, NONFASTING 3. Elevated hemoglobin A1c - ICD9: 790.29, ICD10: R73.09 Check - HEMOGLOBIN A1C 4. Bilateral carotid artery stenosis - ICD9: 433.10, 433.30, ICD10: I65.23 Check - LIPID PANEL, NONFASTING - recheck US in 2024. 5. Major depressive disorder, recurrent episode, severe with anxious distress (HCC) - ICD9: 296.33, ICD10: F33.2 - on meds per psych Check - THYROID STIMULATING HORMONE - COMPLETE BLOOD COUNT AND DIFFERENTIAL 6. Severe anxiety - ICD9: 300.00, ICD10: F41.9 - as per #5 Check - THYROID STIMULATING HORMONE - COMPLETE BLOOD COUNT AND DIFFERENTIAL 7. Benign non-nodular prostatic hyperplasia without lower urinary tract symptoms - ICD9: 600.90, ICD10: N40.0 - stable and follows with Urology 8. Advance directive discussed with patient - ICD9: V65.49, ICD10: Z71.89 - needs to bring in copies. 9. Medication management - ICD9: V58.69, ICD10: Z79.899 Check - THYROID STIMULATING HORMONE - COMPLETE BLOOD COUNT AND DIFFERENTIAL 10. Encounter for immunization - ICD9: V03.89, ICD10: Z23 - INFLUENZA VACCINE, PRSV FREE, AGE 65+ YR, HIGH DOSE, TRIVALENT (FLUZONE HIGH-DOSE): given - Par[employer] Dining-AGLOGIC COVID-19 VACCINE AGE 12+ YR (COMIRNATY): given 11. Elevated blood pressure reading without diagnosis of hypertension - ICD9: 796.2, ICD10: R03.0 - Encouraged dietary sodium restriction/DASH diet - Recommended regular aerobic exercise. - Recommend home blood pressure monitoring, to bring results in on next visit - recheck in 2-3 weeks. Patient has bad anxiety and not uncommon for his BP to be elevated at his WAE. - Goal of BP <130/80 F/u 2-3 weeks HTN check F/u in a year for extensive exam I spent a total of 40 minutes on the date of the service which included preparing to see the patient, [id number] patient care, completing clinical documentation, performing a medically appropriate examination, counseling and educating the patient/family/caregiver and ordering medications, tests, or procedures. Yrn Holland MD documented in this encounter [facility] 07-20-2023 Miscellaneous Notes Pt notified. He verbalized understanding. Maximino Gan LPN Advise Crissy he should get a Tdap. Pt calling to check on the following: [facility]. He would like to know what you recommend he get. TD or TDAP and he was told by his insurance, [employer] he would need to go thru the pharmacy to get it. Please advise pt. Okay to leave a detailed message. Valery Moseley LPN documented in this encounter [facility] 07-14-2023 History of Present illness Narrative Scan on 07/13/2023 5:35 PM by ProviderDahlia PA-C: Chemistry documented in this encounter [facility] 07-14-2023 History of Present illness Narrative Scan on 07/13/2023 3:56 PM by ProviderDahlia PA-C: Consultation - documented in this encounter [facility] 05-12-2023 Miscellaneous Notes Protocol recommends Home care. Care plan reviewed with patient. Patient's voices understanding. Advised her that if patient's symptoms get worse to call us, go to [facility] or the ER. Reason for Disposition [1] COVID-19 diagnosed by positive lab test (e.g., PCR, rapid self-test kit) AND [2] mild symptoms (e.g., cough, fever, others) AND [3] no complications or SOB Answer Assessment - Initial Assessment Questions 1. COVID-19 DIAGNOSIS: Positive self test 2. COVID-19 EXPOSURE: Not aware of any-was to a recent concert with several people there 3. ONSET: yesterday 4. WORST SYMPTOM: nasal congestion 5. COUGH: Denies 6. FEVER: Denies 7. RESPIRATORY STATUS: normal 8. UAFIFO-XINM-AWTNE: Same 9. OTHER SYMPTOMS: Denies chills, fatigue, headache, loss of smell or taste, muscle pain, or sore throat 10. HIGH RISK DISEASE: Denies hx of asthma, heart or lung disease, weak immune system, obesity 11. VACCINE: Has had all 6-last one was 03/31/23 12. : N/A 13. O2 SATURATION MONITOR: N/A Protocols used: COVID-19 - Diagnosed or [id number] documented in this encounter [facility] 04-01-2023 Miscellaneous Notes Pt notified. Naomie Harris Ma Let patient know blood sugar screen shows mild elevation. This indicates at risk for diabetes. Advise working on diet with reduced sugars, sweets, carbs and starches. Lipid panel showed Trigs elevated at 226 (goal<150 and was 295), HDL good at 49 and LDL elevated at 164 (goal<130 and was 137). Advise work on diet with reduced fat/chol in it. documented in this encounter [facility] 03-31-2023 Instructions Yrn Holland MD - 03/31/2023 1:14 PM EST Please bring in copies of your power of underground utility locator for health care and living will. Please consider getting the RSV vaccine from local pharmacy documented in this encounter [facility] 03-31-2023 History of Present illness Narrative Medicare Yearly Visit Medical B eligibilty date 06/24/2020 Date of last exam 03/27/2022 PAST MEDICAL HISTORY PAST MEDICAL HISTORY Diagnosis Date AK (actinic keratosis) 01/28/2017 tearted with cryo 01/28/2017 Benign non-nodular prostatic hyperplasia without lower urinary tract symptoms 01/31/[address] White yearly and gets PSA's and prostate exam. 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 Esteban, negative, recheck in 10 yrs FECAL OCCULT BLOOD TEST 02/03/2017 Negative KNEE SCOPE,DIAGNOSTIC 1999 Arthroscopy, knee Right x2 KNEE SCOPE,DIAGNOSTIC 04/14/2006 left ALLERGIES: Patient has no known allergies. Medications reviewed: Yes FAMILY HISTORY FAMILY HISTORY Problem Relation Age of Onset Cancer Mother pancreas, with mets to lungs, passed 05/2016 other (parkinson's disease) Father passed 2006 SOCIAL HISTORY: SOCIAL HISTORY Social History Tobacco Use Smoking status: Never Smoker Smokeless tobacco: Never Used Substance Use Topics Alcohol use: No Drug use: No Crissy works out regularly 3 times per week with stationary bicycling and does an elliptical at home daily for 20 min. He watches his diet for sodium, low fat and low cholesterol most of the time, generally not very much. List of current specialists seen: Dr. Jorge (Urology), optho Dr. Barone (Psych) End of Live Planning discussed including patients advanced directive wishes: Yes I am willing to follow Crissy's advanced directives. PHQ-2 / Depression screen No symptoms of uncontrolled depression or anxiety in the past month. Functional Ability/Safety Screen 1. Was the patient's timed Up and Go test unsteady or longer than 30 seconds? No 2. Does the patient need help with the phone, transportation, shopping,preparing meals, housework, laundry, medications or managing money? No 3. Does your home have rugs in the hallway, lack of grab bars in the bathroom (N), lack of handrails on the stairs or have poor lighting? No Hearing Evaluation: hard of hearing PHYSICAL EXAM BP 134/88 (BP Site: Left Arm, BP Position: Sitting, BP Cuff Size: Regular Adult) Pulse 86 Resp 18 Ht 176.5 cm (5' 9.5") Wt 76.7 kg (169 lb) BMI 24.60 kg/m Alert and oriented X 3: YES Body mass index is 24.60 kg/m . Visual acuity: see optho See Below ASSESSMENT/PLAN: 67 year old male The following prevention plan was discussed during the office visit and provided to the patient: See below Yrn Holland MD Chief Complaint Patient presents with: Medicare Wellness Exam HPI Crissy Richter is a 67 year old male who presents here today for Chronic Medical Conditions. and Medicare Annual Visit. Any other concerns today: None today Patient with Hx of major depression, sever anxiety seeing psych, dyslipidemia, elevated A1c, BPH as well as those reviewed and addressed below and in ROS. Patient has MRI [place] 03/04/2023 Office visit - 02/02/2023 memory issues Dementia concerns: Patient has been having trouble remember things. Patient has been having difficulty swallowing his vitamins/pills. Has tried apple sauce and bread. Not getting stuck ut feels like not moving easily even with solids. Some gaging. No chocking or coughing. Patient has been taking [address] Barone. They were told he could double if they wanted to. patient is currently taking the 300 mg daily Patient with Hx of major depression, sever anxiety seeing psych, dyslipidemia, elevated A1c, BPH as well as those reviewed and addressed below and in ROS. List of current specialists seen: Dr. Jorge (Urology), optho Dr. Barone (Psych) Patient has been doing well. His meds per psych have been controlling his mental health much better. Past medical history, appointments, medications, allergies reviewed. Previous Medical History PAST MEDICAL HISTORY Diagnosis Date Advance directive discussed with patient 03/27/2022 Discussed 03/2022: patient to bring in copies AK (actinic keratosis) 01/28/2017 tearted with cryo 01/28/2017 Benign non-nodular prostatic hyperplasia without lower urinary tract symptoms 01/31/[address] White yearly and gets PSA's and prostate exam. 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 Esteban, negative, recheck in 10 yrs COLONOSCOPY FLX DX W/COLLJ SPEC WHEN PFRMD 11/02/2008 repeat 10 yrs FECAL OCCULT BLOOD TEST 02/03/2017 Negative Family History FAMILY HISTORY Problem Relation Age of Onset Cancer Mother pancreas, with mets to lungs, passed 05/2016 other (parkinson's disease) Father passed 2006 Patient Allergies ALLERGIES No Known Allergies Current Medications Current Outpatient Medications on File Prior to Visit Medication Sig buPROPion XL (WELLBUTRIN XL) 150 mg 24 hr tablet Take 150 mg by mouth once daily. tamsulosin (FLOMAX) 0.4 mg Take 0.4 mg by mouth once daily. buPROPion XL (WELLBUTRIN XL) 300 mg 24 hr tablet Take 300 mg by mouth once daily. (Patient not taking: Reported on 07/15/2022) venlafaxine ER (EFFEXOR XR) 75 mg 24 hr capsule Take 2 capsules by mouth twice daily. Per PsychDr. Barone (Patient taking differently: Take 150 mg by mouth twice daily. Taking 300 mg at bedtime. Per Psych, Dr. Barone) TURMERIC ORAL Take by mouth. Taking 1000 mg daily mirtazapine (REMERON) 15 mg tablet Take 1 tablet by mouth daily at bedtime. Per Psych, Dr. Barone (Patient taking differently: Take 45 mg by mouth daily at bedtime. Per Psych, Dr. Barone) OLANZapine (ZYPREXA) 5 mg tablet Take 1 tablet by mouth daily at bedtime. Per Psych, Dr. Barone (Patient taking differently: Take 10 mg by mouth daily at bedtime. Per Psych, Dr. Barone) zr-xpb-frfps acid-lutein (CENTRUM SILVER) 400-250 mcg chew Take 1 tablet by mouth once daily. Current Facility-Administered Medications on File Prior to Visit Medication perflutren lipid microspheres 1.3 mL in NaCl (PF) 0.9% 10 mL injection (DEFINITY) sodium chloride 0.9 % (flush) 10 mL (BD POSIFLUSH) Social History Social History Tobacco Use Smoking status: Never Smokeless tobacco: Never Substance Use Topics Alcohol use: No Drug use: No Review of Symptoms REVIEW OF SYSTEMS GENERAL: No weight loss, malaise or fevers HEENT: Negative for frequent or significant headaches, No changes in hearing or vision, no nose bleeds or other nasal problems NECK: Negative for lumps, goiter, pain and significant neck swelling RESPIRATORY: Negative for cough, hemoptysis, wheezing, COPD, dyspnea or shortness of breath CARDIOVASCULAR: Negative for chest pain, leg swelling, hypertension, CHF or palpitations GI: No nausea, vomiting, or diarrhea, No heartburn or reflux symptoms, and no blood : No history of dysuria, frequency or blood MUSCULOSKELETAL: Negative for joint pain or swelling, back pain or muscle pain SKIN: Negative for lesions, rash, and itching PSYCH: seeing Pysch HEMATOLOGY/LYMPHOLOGY: Negative for prolonged bleeding, bruising easily or swollen nodes ENDOCRINE: Negative for cold or heat intolerance, polyuria, polydipsia and goiter NEURO: No history of headaches, syncope, paralysis, seizures or tremors EXAM: BP 134/88 (BP Site: Left Arm, BP Position: Sitting, BP Cuff Size: Regular Adult) Pulse 86 Resp 18 Ht 176.5 cm (5' 9.5") Wt 76.7 kg (169 lb) BMI 24.60 kg/m BP 128/82 Pulse 86 Resp 18 Ht 176.5 cm (5' 9.5") Wt 76.7 kg (169 lb) BMI 24.60 kg/m Last 5 Encounter Wt Readings: Date: Wt: 03/31/2023 76.7 kg (169 lb) 02/02/2023 75.3 kg (166 lb) 07/15/2022 74.7 kg (164 lb 9.6 oz) 06/24/2022 73.6 kg (162 lb 3.2 oz) 05/18/2022 76.7 kg (169 lb) General Appearance: Well appearing, alert, in no acute distress, well-hydrated, well nourished.. Skin: Skin color, texture, turgor normal, no suspicious rashes or lesions. Head: Normocephalic, no masses, lesions, tenderness or abnormalities. Eyes: Anicteric sclera. Pupils are equally round and reactive to light. Extraocular movements are intact. . Ears: External ears, TM's normal, canals clear. Nose/Sinuses: Nares normal, septum midline, mucosa normal, no drainage or sinus tenderness. Oropharynx: Lips, mucosa, and tongue normal, teeth and gums normal, oropharynx normal. Neck: Supple, no adenopathy; thyroid symmetric, normal size, no bruits. Lungs: Lungs clear to auscultation. No wheezing, rhonchi, rales.. Heart: RRR without murmur, gallop, or rubs. No ectopy. Abdomen: Normal abdominal exam, Abdomen soft, non-tender. Bowel sounds normal. No masses, organomegaly. Extremities: No deformities, edema, skin discoloration, Good capillary refill. . Musculoskeletal: Muscular strength intact, No joint swelling, deformity, or tenderness. Peripheral Pulses: Normal. Neurologic: Gait normal. Reflexes normal and symmetric. Sensation to light touch and crainal nerves 2-12 intact.. Genitalia: Normal, Penis normal. No urethral discharge. Scrotum normal to palpation. No hernia.. Health Maintenance List RSV Vaccine(1 - 1-dose 60+ series) Never done Advance Directive Discussion due on 05/24/2022 Influenza Vaccine(1) due on 01/22/2023 Covid-19 Vaccine(2022- season) due on 01/22/2023 DTaP,Tdap,Td Vaccine(3 - Td or Tdap) due on 08/05/2023 Diabetes Screening due on 02/02/2026 Lipid Screening due on 03/20/2027 Prostate Cancer Screening Discussion due on 03/20/2027 Colorectal Cancer Screening due on 01/15/2028 Shingrix Vaccine Completed Pneumococcal Vaccine: 65+ Completed Hepatitis C Screening Discontinued Data reviewed Component Latest Ref Rng & Units 03/20/2022 02/02/2023 WBC 3.70 - 11.00 k/uL 5.41 5.62 RBC 4.20 - 6.00 m/uL 4.45 4.84 Hemoglobin 13.0 - 17.0 g/dL 13.4 14.2 Hematocrit 39.0 - 51.0 % 40.9 43.6 MCV 80.0 - 100.0 fL 91.9 90.1 MCH 26.0 - 34.0 pg 30.1 29.3 MCHC 30.5 - 36.0 g/dL 32.8 32.6 RDW-CV 11.5 - 15.0 % 13.6 13.9 Platelet Count 150 - 400 k/uL 296 285 MPV 9.0 - 12.7 fL 9.2 9.2 Neut% % 46.3 68.5 Abs Neut (ANC) 1.45 - 7.50 k/uL 2.51 3.85 Lymph% % 25.0 19.9 Abs Lymph 1.00 - 4.00 k/uL 1.35 1.12 Antelope% % 9.6 9.1 Abs Antelope <0.87 k/uL 0.52 0.51 Eosin% % 17.2 1.4 Abs Eosin <0.46 k/uL 0.93 (H) 0.08 Baso% % 1.5 0.9 Abs Baso <0.11 k/uL 0.08 0.05 Immature Gran % % 0.4 0.2 IMMATURE GRANS (ABS) <0.10 k/uL <0.03 <0.03 NRBC /100 WBC 0.0 0.0 Absolute nRBC <0.01 k/uL <0.01 <0.01 DTYPE Auto Auto Protein, Total 6.3 - 8.0 g/dL 6.7 7.4 Albumin 3.9 - 4.9 g/dL 4.1 4.5 Calcium 8.5 - 10.2 mg/dL 9.1 9.6 Bilirubin, Total 0.2 - 1.3 mg/dL <0.2 (L) 0.2 Alkaline Phosphatase 38 - 113 U/L 110 117 (H) AST 14 - 40 U/L 24 19 ALT 10 - 54 U/L 30 24 Glucose 74 - 99 mg/dL 103 (H) 109 (H) BUN 9 - 24 mg/dL 20 18 Creatinine 0.73 - 1.22 mg/dL 1.12 1.02 Sodium 136 - 144 mmol/L 142 143 Potassium 3.7 - 5.1 mmol/L 4.2 4.3 Chloride 97 - 105 mmol/L 106 (H) 105 CO2 22 - 30 mmol/L 26 27 Anion Gap 9 - 18 mmol/L 10 11 eGFR >=60 mL/min/1.73m 72 81 Color Yellow Yellow Yellow Clarity Clear Clear Clear Glucose, Urine Trace, Negative Negative Negative Bilirubin, Urine Negative Negative Negative Ketones, Urine Trace, Negative Negative Negative Specific [place], Ur 1.005 - 1.030 1.027 1.029 Hemoglobin/Blood,Ur Negative, Trace Negative Negative pH, Urine 5.0 - 8.0 5.5 5.5 Protein, Urine Trace, Negative Trace (A) Trace Urobilinogen Negative Negative Negative Nitrites Negative Negative Negative Leukest Negative, 25 Kacey/uL Negative Negative WBC, Urine 0-5 /HPF 0-5 /HPF 0-5 /HPF RBC, Urine 0-3 /HPF 0-3 /HPF 0-3 /HPF Epithelial Cells /HPF Few Hyaline Cast 0 /LPF 4-10 /LPF (A) Calcium Oxalate Crystals None Seen /HPF Few (A) Total Cholesterol, Nonfasting <200 mg/dL 238 (H) Triglycerides, Nonfasting <150 mg/dL 295 (H) HDL Cholesterol, Nonfasting >39 mg/dL 42 LDL Cholesterol, Nonfasting <100 mg/dL 137 (H) Non HDL Cholesterol, Nonfasting <130 mg/dL 196 (H) VLDL Cholesterol, Nonfasting <30 mg/dL 59 (H) Total Chol/HDL Ratio, Nonfasting <5.10 mg/dL 5.67 (H) LDL/HDL Ratio, Nonfasting <2.54 mg/dL 3.26 (H) Hemoglobin A1C 4.3 - 5.6 % 5.6 Estimated Average Glucose mg/dL 114 PSA <2.60 ng/mL 1.12 Vitamin B12 232 - 1,245 pg/mL 998 TSH 0.270 - 4.200 mIU/L 2.220 Free T4 0.9 - 1.7 ng/dL 0.9 Folate >4.7 ng/mL 19.4 A/P ASSESSMENT/PLAN: 1. Encounter for Medicare annual wellness exam - ICD9: V70.0, ICD10: Z00.00 (primary diagnosis) - Counseled on healthy diet and regular exercise - Patient was counseled [id number] by myself (the billing provider) for the following immunizations and vaccine components, including side effects: COVID-19 and Influenza. Patient consents for immunization and understands risks and benefits. A VIS sheet on each immunization was given to the patient. - Follow up for annual exam in one year 2. Dyslipidemia - ICD9: 272.4, ICD10: E78.5 - await labs - Counseled on healthy diet and regular exercise - LIPID PANEL, NONFASTING 3. Elevated hemoglobin A1c - ICD9: 790.29, ICD10: R73.09 Check - HGB A1C 4. Major depressive disorder, recurrent episode, severe with anxious distress (HCC) - ICD9: 296.33, ICD10: F33.2 - management per psych 5. Severe anxiety - ICD9: 300.00, ICD10: F41.9 - as per #4 6. Oropharyngeal dysphagia - ICD9: 787.22, ICD10: R13.12 - is working on the exercises OT gave him and feels about the same. 7. Benign non-nodular prostatic hyperplasia without lower urinary tract symptoms - ICD9: 600.90, ICD10: N40.0 - management per Urology 8. Bilateral carotid artery stenosis - ICD9: 433.10, 433.30, ICD10: I65.23 - await lipid and monitor. 9. Advance directive discussed with patient - ICD9: V65.49, ICD10: Z71.89 - patient to bring in copies. 10. Encounter for immunization - ICD9: V03.89, ICD10: Z23 - INFLUENZA VACCINE, PRSV FREE, AGE 65+ YR, HIGH DOSE, QUADRIVALENT (FLUZONE HIGH-DOSE): given - [employer] COVID-19 VACCINE ( SEASON) AGE 12+ YR: given. F/u in a year for WAE sooner if needed. I spent a total of 40 minutes on the date of the service which included preparing to see the patient, [id number]-lrxl patient care, completing clinical documentation, performing a medically appropriate examination, counseling and educating the patient/family/caregiver and ordering medications, tests, or procedures. Patient was asked at end of visit if they had any questions or input regarding the plan of care we had discussed. Yrn Holland MD documented in this encounter [facility] 03-11-2023 Miscellaneous Notes Noted. Patient returned call and went over results, notes from Dr Holland with understanding. Patient said he had Speech Therapy appt yesterday at [facility] and was given exercises to be doing at home. Left vm for patient to return call to nurse for provider's message. Let patient now I received his swallowing study report showing the mild-mod swallowing dysfunction. See if he is wanting a referral to proceed with speech therapy or just doing home program at this time. documented in this encounter [facility] 03-04-2023 History of Present illness Narrative Radiology Service Progress Note PATIENT NAME: Crissy Richter DATE OF SERVICE: March 04, 2023 TIME: 8:42 AM PATIENT IDENTITY VERIFICATION COMPLETED USING TWO (2) IDENTIFIERS: Name and Date of confirmed by patient verbally. FALL SCREENING: Has the patient had 2 falls in the last year or 1 fall with injury or currently using an Ambulatory Assistive Device (Walker, Cane, Wheelchair, Crutches, etc.)? No PATIENT GENDER DATA: Male PATIENT RELEVANT IMPLANT DATA REVIEWED: Yes RADIOLOGY DEPARTMENT: MR; Exam(s) Completed: Head: Routine Brain PERIPHERAL IV DATA: Not applicable SIGNED BY: Shilpi Virk RT(R) March 04, 2023 8:42 AM documented in this encounter [facility] 03-01-2023 History of Present illness Narrative [facility] NURSE - CHART REVIEW Provider [facility] Action Chart review 05/04/22 ED [facility], left flank and lower abdominal pain, diagnosed non obstructive bilateral renal calculi 05/09/22 ED/[facility] pain, renal calculi, cystoscopy, L ureteroscopy, laser lithotripsy and placement of ureteral stent Pt identified by name and . Reason for Review: Payor request Patient Attributed To: KYLEE Payer: ROSSYBlayneWALLACE Chart Review For: Utilization: ED Total Patient High CostTotal Patient High Cost {HIGH COST:[id number]) Quality measure review Payor request for assistance Action Taken: No action needed Renetta Jones RN March 01, 2023 12:25 PM documented in this encounter [facility] 02-25-2023 Miscellaneous Notes Spoke with and gave her Dr. Holland messages. She voiced understanding. She just he is just a low right now. I asked patient is not wanting to harm himself. She indicated no. Kemi Woo MA Let patient's know I have not heard of cranial osteopathy. I would advise her to reach out to his Psychiatrist. He may need to be admitted to acute inpatient setting to work on med adjustment. Pt's Tiffanie calling as her is having continued problems with severe depression. He sees Dr. Barone in [facility] but doesn't think he is getting any better. Her son talked with someone about cranial osteopathy. Tiffanie wondering if Dr. Holland has heard of this and if so, could he recommend someone to them. documented in this encounter [facility] 02-25-2023 Miscellaneous Notes Pt called in asking if his MRI and Swallowing test were authorized. He states he called his insurance and they said they needed the CPT code. Contacted Kassdiy with the Pre Authorization department and for the MRI she said, "CC has an exemption with his insurance, [employer]. Patient's coming here don't need auth.". The Swallowing test she said, "it doesn't require auth and that was sent to [facility].". I let the Pt know, and he was satisfied. documented in this encounter [facility] 02-05-2023 Miscellaneous Notes Phoned patient and given provider's message below with verbalized understanding. Let patient know the syphilis test was negative and all other labs were normal. documented in this encounter [facility] 02-02-2023 History of Present illness Narrative Chief Complaint Patient presents with: Follow Up HPI Crissy Richter is a 67 year old male who presents here today for dementia concerns per Dementia concerns: Patient has been having trouble remember things. Patient has been having difficulty swallowing his vitamins/pills. Has tried apple sauce and bread. Not getting stuck ut feels like not moving easily even with solids. Some gaging. No chocking or coughing. Patient has been taking [address] Barone. They were told he could double if they wanted to. Just had some concerns over that. This visit was last WednesdayJanuary 29. Patient with Hx of major depression, sever anxiety seeing psych, dyslipidemia, elevated A1c, BPH as well as those reviewed and addressed below and in ROS. List of current specialists seen: Dr. Jorge (Urology), optho Dr. Barone (Psych) has visit last Wednesday Past medical history, appointments, medications, allergies reviewed. Previous Medical History PAST MEDICAL HISTORY Diagnosis Date Advance directive discussed with patient 03/27/2022 Discussed 03/2022: patient to bring in copies [place] (actinic keratosis) 01/28/2017 tearted with cryo 01/28/2017 Benign non-nodular prostatic hyperplasia without lower urinary tract symptoms 01/31/[address] White yearly and gets PSA's and prostate exam. 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 Internal hemorrhoids without mention of complication Living will in place 03/27/2022 DPA: Tiffanie () Major depressive disorder, recurrent episode, severe with anxious distress (HCC) 07/30/2021 Seeing Psychiatry, Lizabeth Baumann Medicare annual wellness visit, initial 02/26/2021 Medicare Part b: Last done: 02/26/2021 Microscopic hematuria 11/19/2008 Moderate major depressive disorder with anxiety single episode (HCC) 11/23/2018 Osteoarthritis of finger of right hand 01/28/2017 PIP Severe anxiety 09/16/2021 Seeing PsychiatryDr Snavely Well adult exam 05/14/2016 Can have one per year, last done 02/23/2019 Previous Surgical History PAST SURGICAL HISTORY Procedure Laterality Date ARTHROSCOPY KNEE DIAGNOSTIC W/WO SYNOVIAL BX SPX 1999 Arthroscopy, knee Right x2 ARTHROSCOPY KNEE DIAGNOSTIC W/WO SYNOVIAL BX SPX 04/14/2006 left COLONOSCOPY 01/14/2018 Dr. Esteban, negative, recheck in 10 yrs COLONOSCOPY FLX DX W/COLLJ SPEC WHEN PFRMD 11/02/2008 repeat 10 yrs FECAL OCCULT BLOOD TEST 02/03/2017 Negative Family History FAMILY HISTORY Problem Relation Age of Onset Cancer Mother pancreas, with mets to lungs, passed 05/2016 other (parkinson's disease) Father passed 2006 Patient Allergies ALLERGIES No Known Allergies Current Medications Current Outpatient Medications on File Prior to Visit Medication Sig buPROPion XL (WELLBUTRIN XL) 150 mg 24 hr tablet Take 150 mg by mouth once daily. tamsulosin (FLOMAX) 0.4 mg Take 0.4 mg by mouth once daily. buPROPion XL (WELLBUTRIN XL) 300 mg 24 hr tablet Take 300 mg by mouth once daily. (Patient not taking: Reported on 07/15/2022) venlafaxine ER (EFFEXOR XR) 75 mg 24 hr capsule Take 2 capsules by mouth twice daily. Per Psych, Dr. Barone Lactobacillus acidophilus (FLORAJEN ACIDOPHILUS) 20 billion cell cap Take 1 capsule by mouth once daily. (Patient not taking: Reported on 06/24/2022) TURMERIC ORAL Take by mouth. Taking 1000 mg daily mirtazapine (REMERON) 15 mg tablet Take 1 tablet by mouth daily at bedtime. Per Psych, Dr. Barone (Patient taking differently: Take 45 mg by mouth daily at bedtime. Per Psych, Dr. Barone) OLANZapine (ZYPREXA) 5 mg tablet Take 1 tablet by mouth daily at bedtime. Per Psych, Dr. Barone (Patient taking differently: Take 10 mg by mouth daily at bedtime. Per Psych, Dr. Barone) kz-nly-nzaux acid-lutein (CENTRUM SILVER) 400-250 mcg chew Take 1 tablet by mouth once daily. Current Facility-Administered Medications on File Prior to Visit Medication perflutren lipid microspheres 1.3 mL in NaCl (PF) 0.9% 10 mL injection (DEFINITY) sodium chloride 0.9 % (flush) 10 mL (BD POSIFLUSH) Social History Social History Tobacco Use Smoking status: Never Smokeless tobacco: Never Substance Use Topics Alcohol use: No Drug use: No Review of Symptoms REVIEW OF SYSTEMS See HPI EXAM: BP 152/88 (BP Site: Left Arm, BP Position: Sitting, BP Cuff Size: Regular Adult) Pulse 82 Resp 18 Wt 75.3 kg (166 lb) BMI 24.16 kg/m BP 144/84 Pulse 82 Resp 18 Wt 75.3 kg (166 lb) BMI 24.16 kg/m Last 8 Encounter BP Readings: Date: BP: 02/02/2023 144/84 07/15/2022 112/78 06/24/2022 126/78 05/18/2022 130/82 03/27/2022 132/82 07/30/2021 138/80 04/23/2021 126/80 02/26/2021 122/80 General Appearance: Well appearing, alert, in no acute distress, well-hydrated, well nourished. Anxious. Eyes: Anicteric sclera. Pupils are equally round and reactive to light. Extraocular movements are intact. . Neck: Supple, no adenopathy; thyroid symmetric, normal size, no bruits. Lungs: Lungs clear to auscultation. No wheezing, rhonchi, rales.. Heart: RRR without murmur, gallop, or rubs. No ectopy. Abdomen: Normal abdominal exam, Abdomen soft, non-tender. Bowel sounds normal. No masses, organomegaly. Extremities: No deformities, edema, skin discoloration, . Good capillary refill. . Musculoskeletal: Muscular strength intact, No joint swelling, deformity, or tenderness. Peripheral Pulses: Normal. Neurologic: Gait normal. Reflexes normal and symmetric. Sensation to light touch and crainal nerves 2-12 intact.. Health Maintenance List Advance Directive Discussion due on 05/24/2022 Covid-19 Vaccine(6 - Pfizer series) due on 07/25/2022 Influenza Vaccine(1) due on 01/22/2023 DTaP,Tdap,Td Vaccine(3 - Td or Tdap) due on 08/05/2023 Diabetes Screening due on 07/01/2025 Lipid Screening due on 03/20/2027 Prostate Cancer Screening Discussion due on 03/20/2027 Colorectal Cancer Screening due on 01/15/2028 Shingrix Vaccine Completed Pneumococcal Vaccine: 65+ Completed Hepatitis C Screening Discontinued Data reviewed MINI-MENTAL STATE EXAMINATION (MMSE) Make the patient comfortable and establish rapport. Ask questions in the order listed. Total possible score is 30. ORIENTATION 1. What is the (year) (season) (date) (day) (month)? Max score=5 Patient's score=5 2. Where are we? (state) (county) (town or city) (hospital) (floor)? Max score=5 Patient's score=5 REGISTRATION Ask the patient if you may test his/her memory. Then say the names of 3 unrelated objects, clearly and slowly, about one second for each (eg, apple, table, marian). After you have said all 3, ask him/her to repeat them. This first repetition determines the score(0-3), but keep saying them until he/she can repeat all 3, up to 6 trials. Max score=3 Patient's score=3 ATTENTION AND CALCULATION Ask the patient to begin with 100 and count backwards by 7. Stop after 5 subtractions (93, 86, 79, 72, 65). Score the total number of correct answers. If the patient cannot or will not perform the serial 7s task, ask him/her to spell the word WORLD backwards. The score is the number of letters in the correct order (eg, DLROW=5; DLRW=4; DLORW, DLW=3; OW=2; DRLWO=1). Max score=5 Patient's score=3 RECALL Ask the patient to recall the 3 items repeated above (eg, apple, table, marian). Max score=3 Patient's score=3 LANGUAGE Naming: Show the patient a wristwatch and ask him/her what it is. Repeat for pencil. Max score=2 Patient's score=2 Repetition: Ask the patient to repeat the phrase No ifs, ands, or buts: after you. Max score=1 Patient's score=1 3-Stage Command: Give the patient a piece of blank paper and ask him/her to take a piece of paper in your right hand, fold it in half, put it on the floor. Score 1 point for each part correctly executed. Max score=3 Patient's score=3 Reading: On a blank piece of paper, print the sentence CLOSE YOUR EYES in letters large enough for the patient to see clearly. Ask him/her to read it and do what it says. Score 1 point only if he/she actually closes his/her eyes. Max score=1 Patient's score=1 Writing: Give the patient a blank piece of paper and ask him/her to write a sentence. Do not dictate a sentence; it is to be written spontaneously. It must contain a subject and verb and be sensible. Correct grammar and punctuation are not necessary. Max score=1 Patient's score=1 Copying: Ask the patient to copy the figure of intersecting pentagons exactly as it is. All 10 angles must be present and 2 must intersect to form a 4-sided figure to score 1 point. Tremor and rotation are ignored. Max score=1 Patient's score=1 MAXIMUM TOTAL SCORE = 30 TOTAL SCORE = 28/30 Clock drawing was normal. Suggested guideline for determining the severity of cognitive impairment: Mild: MMSE>21 Moderate: MMSE 10-20 Severe: MMSE<9 Expected decline in MMSE scores in untreated mild to moderate Alzheimer's patient is 2 to 4 points per year. *Adapted from Folstein et al.1 and Grace and Folstein2. (c) 1974, 1997 [employer] Used with permission. References: 1. Folstein MF, Folstein SE, Brayan SC. Mini-Mental State: a practical method for grading the cognitive state of patients for the clinician. J Psychiatr Res. 1975; 12:189-198. 2. JR Grace, Aramis MF, Mini-Mental State Examination (MMSE). Psychopharm Bull. 1988;24:689-692. 3. Winston JT, Balbir FJ, Jackson RD, Evin A, Coni F. Neuropsychological function in Alzheimer's disease: pattern of impairment and rates of progression. Arch Neurol. 1988;45:263-268. 4. Kimo JA, Parul B, Matias S-P, Johnnie MACK. Predictors of cognitive and functional progression in patients with probable Alzheimer's disease. Neurology. 1992;42:2187-0327. A/P ASSESSMENT/PLAN: 1. Dementia without behavioral disturbance (HCC) - ICD9: 294.20, ICD10: F03.90 (primary diagnosis) Check - MRI BRAIN WO IVCON 2. Memory difficulties - ICD9: 780.93, ICD10: R41.3 Check - VITAMIN B12 BLOOD - COMP METABOLIC PANEL - TSH BLD - SYPHILIS TOTAL W/REFLEX - T4 FREE/FREE THYROX - CBC + DIFF - FOLATE SERUM - URINALYSIS, WITH MICROSCOPIC - MRI BRAIN WO IVCON Suspect the memory issues are more psychogenic in nature. 3. Esophageal dysphagia - ICD9: 787.29, ICD10: R13.19 - will order a PHYSICAL THERAPY swallowing study with [facility]. I spent a total of 30 minutes on the date of the service which included preparing to see the patient, lloc-pv-[id number] patient care, completing clinical documentation, performing a medically appropriate examination, counseling and educating the patient/family/caregiver and ordering medications, tests, or procedures. Yrn Holland MD documented in this encounter [facility] 07-15-2022 History of Present illness Narrative This note was created using [employer]. Subjective Crissy Richter is a 67 year old male. HPI Presents with diarrhea x3 hours. He woke up this morning, had a normal bowel movement and then had 2 bouts of watery diarrhea after that. Denies abdominal pain. No nausea or vomiting. No fever. No blood in stool. No mucus. He did have C. difficile 2 months ago that was treated by vancomycin. No recent antibiotics. No recent travel. Did not eat anything differently in the day before. Denies abdominal surgeries in the past. No hx IBD. Review of Systems Constitutional: Negative. HENT: Negative. Respiratory: Negative. Gastrointestinal: Positive for diarrhea. Negative for abdominal pain, blood in stool, constipation, rectal pain and vomiting. Genitourinary: Negative. All other systems reviewed and are negative. PAST MEDICAL HISTORY Diagnosis Date Advance directive discussed with patient 03/27/2022 Discussed 03/2022: patient to bring in copies [place] (actinic keratosis) 01/28/2017 tearted with cryo 01/28/2017 Benign non-nodular prostatic hyperplasia without lower urinary tract symptoms 01/31/[address] White yearly and gets PSA's and prostate exam. 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 tamsulosin (FLOMAX) 0.4 mg Take 0.4 mg by mouth once daily. venlafaxine ER (EFFEXOR XR) 75 mg 24 hr capsule Take 2 capsules by mouth twice daily. Per Psych, Dr. Barone TURMERIC ORAL Take by mouth. Taking 1000 mg daily ba-rtm-pstmq acid-lutein (CENTRUM SILVER) 400-250 mcg chew Take 1 tablet by mouth once daily. buPROPion XL (WELLBUTRIN XL) 300 mg 24 hr tablet Take 300 mg by mouth once daily. (Patient not taking: Reported on 07/15/2022) Lactobacillus acidophilus (FLORAJEN ACIDOPHILUS) 20 billion cell cap Take 1 capsule by mouth once daily. (Patient not taking: Reported on 06/24/2022) 30 capsule 0 mirtazapine (REMERON) 15 mg tablet Take 1 tablet by mouth daily at bedtime. Per Psych, Dr. Barone (Patient taking differently: Take 45 mg by mouth daily at bedtime. Per Psych, Dr. Barone) OLANZapine (ZYPREXA) 5 mg tablet Take 1 tablet by mouth daily at bedtime. Per Psych, Dr. Barone (Patient taking differently: Take 10 mg by mouth daily at bedtime. Per Psych, Dr. Barone) Current Facility-Administered Medications Medication Dose Route Frequency Provider Last Rate Last Admin perflutren lipid microspheres 1.3 mL in NaCl (PF) 0.9% 10 mL injection (DEFINITY) INTRAVENOUS DIRECTED PRN Felecia Quiroz PA-C sodium chloride 0.9 % (flush) 10 mL (BD POSIFLUSH) 10 mL INTRAVENOUS DIRECTED PRN Felecia Quiroz PA-C PAST SURGICAL HISTORY Procedure Laterality Date ARTHROSCOPY KNEE DIAGNOSTIC W/WO SYNOVIAL BX SPX 1999 Arthroscopy, knee Right x2 ARTHROSCOPY KNEE DIAGNOSTIC W/WO SYNOVIAL BX SPX 04/14/2006 left COLONOSCOPY 01/14/2018 Dr. Esteban, negative, recheck in 10 yrs COLONOSCOPY FLX DX W/COLLJ SPEC WHEN PFRMD 11/02/2008 repeat 10 yrs FECAL OCCULT BLOOD TEST 02/03/2017 Negative FAMILY HISTORY Problem Relation Age of Onset Cancer Mother pancreas, with mets to lungs, passed 05/2016 other (parkinson's disease) Father passed 2006 Social History Tobacco Use Smoking status: Never Smokeless tobacco: Never Substance Use Topics Alcohol use: No Drug use: No Objective BP 112/78 Pulse 99 Temp 36.6 C (97.9 F) (Tympanic) Resp 18 Wt 74.7 kg (164 lb 9.6 oz) SpO2 97% BMI 23.96 kg/m Physical Exam Vitals reviewed. Constitutional: Appearance: Normal appearance. HENT: Head: Normocephalic and atraumatic. Mouth/Throat: Mouth: Mucous membranes are moist. Pharynx: Oropharynx is clear. Cardiovascular: Rate and Rhythm: Normal rate and regular rhythm. Pulmonary: Effort: Pulmonary effort is normal. Breath sounds: Normal breath sounds. Abdominal: General: Abdomen is flat. Bowel sounds are normal. There is no distension. Palpations: Abdomen is soft. Tenderness: There is no abdominal tenderness. There is no guarding. Musculoskeletal: Cervical back: Neck supple. Skin: General: Skin is warm and dry. Neurological: Mental Status: He is alert. Assessment and Plan ASSESSMENT/PLAN: 1. Diarrhea, unspecified type - ICD9: 787.91, ICD10: R19.7 Symptoms have been for 3 hours this am. Discussed with patient I will order the C. difficile but I would wait a few days to see if the diarrhea resolves on its own. If he starts to develop blood in stool, mucus, abdominal pain fever would definitely do the test at that time as well. Discussed probiotics and brat diet. Patient and agreeable with plan. - C. DIFFICILE PCR Amalia Gonzales PA-C documented in this encounter [facility] 07-15-2022 Instructions Amalia Gonzales PA-C - 07/15/2022 10:14 AM EST BRAT DIET (may eat any of the following as tolerated) Bananas Applesauce [place] Saltine Crackers Animal Crackers Pretzels Oatmeal Unsweetened Dry Cereal (Rice Krispies, Cheerios) Plain Baked or Boiled Potato Plain White Rice Plain Noodles All clear liquid listed below CLEAR LIQUID DIEThour) Broth Jello Popsicles Pedialyte Gatorade NO Juices NO Milk NO Dairy Products documented in this encounter [facility] 07-03-2022 Miscellaneous Notes Noted. Felecia Quiroz PA-C Contacted patient for further information, with in background speaking as well. Provider's messages reviewed with patient. Here are pt's replies to provider's questions: Pt states he does not have the ability to monitor his glucose at home and he and his wish not to monitor it at home at this time. They would like to recheck his A1C "if and when patient desires to" by 12/30/22 (as recently ordered). Pt states he is eating/drinking consistently and he and his do not believe he is experiencing low blood sugars. Patient reports one episode of lightheadedness since OV with Felecia on 06/24/22. This episode was this morning when patient went from lying down to standing up, he had several seconds of some lightheadedness and it resolved and has had none since. Patient had the medication changes by psychiatry, Dr. Barone, today and patient unable to tell impact of changes yet. Rupa Sapp RN Order placed My questions have still not been answered. Please read my note fully. The small ventricle is an insignificant finding. Not related to his symptoms and wouldn t be anything more to investigate. I did confirm this with Dr holland prior to my previous note as well. Felecia Contacted Tiffanie -with pt in background speaking at times. They both were given provider's response below. They would like provider to place order for A1C to be rechecked per pt request. They would like Felecia to know that Dr. Barone in psychiatry decided to put pt back up to original dose of venlafaxine as before (150mg twice daily) but keep the bupropion at 150mg daily. Patient states he saw his echo results and asking why his "left ventricle is small" and what does that indicate? Please advise. Thank you. This is very mild elevation. And he has a hx of prediabetes so I'm not surprised by a low 100 fasting score. We monitor his a1c and his last one in late February was 5.6. a year ago it was 5.8. normal is under 5.7 and 5.7-6.4 is considered prediabetes. We typically check these every 6 months. If it will reassure him, we can check this level again. Let me know. Does he have the ability to monitor his glucose at home? If he isn't eating/drinking consistently he could be having lower blood sugars which can cause some lightheadedness. Does he seem less lightheaded with these medication changes? Also ECHO was normal. Felecia Quiroz PA-C Contacted pt's Tiffanie and given provider's message below. Tiffanie states they have communicated with psychiatry (Dr. Barone) and pt's bupropion was decreased to 150 mg daily and his venlafaxine was decreased to 150 mg daily also. Tiffanie reports patient is "extremely anxious" about his recent glucose level being at 107. Patient has family history of diabetes and he is concerned that he has diabetes now. Tiffanie has placed a call to Dr. Barone's office asking if pt's olanzapine may be increasing pt's glucose level-she states she read that it could. Please call Tiffanie with echo results when available, and any other additional recommendations. Thank you. Thank you. Recheck on labs are normal. Make sure to be staying hydrated. Preliminary report on carotid US shows mild-moderate stenosis, but this would not be causing his symptoms. Echo not avail yet. Please find out if they talked with psych and see if any med changes were done. And how is he feeling? Felecia Quiroz PA-C documented in this encounter [facility] 2022 Miscellaneous Notes Patient notified and voiced understanding. Kemi Woo MA Let patient know that his creatinine is a little elevated which could be sign of dehydration. Make sure to be getting enough water. His alk phos is borderline high. Lets repeat labs in about 1-2 weeks. Do these ones fasting but make sure to Fully hydrate with water prior documented in this encounter [facility] 05-19-2022 Miscellaneous Notes Spoke with pt and information listed below given. Pt verbalizes understanding. Valery Moseley LPN Will need to await cultures for treatment. In meantime, make sure to be staying hydrated and getting electrolytes. Pedialyte would be a good option. calling reports diarrhea persisting and they feel this is C-dif even though we are waiting on stool results. Pt was on strong ATB for the kidney stone surgery he had in [place] and with his age of 65, and the watery stools and Imodium not helping. checking to see if pt could be put on something for the diarrhea. [facility]. Please advise . Valery Moseley LPN documented in this encounter [facility] 05-18-2022 Instructions Shirley Hdez APRN.KIKO - 05/18/2022 11:02 AM EST Tips for managing diarrhea without medication: Drink liquids frequently. Increase the amount to two to three liters or quarts daily as tolerated, or try sipping liquids in small amounts throughout the day. Choose diluted, pulpless fruit juices, broths, oral rehydration drinks, or sodas (without caffeine). Chicken broth (without the fat), tea with honey, and sports drinks also are good choices. Instead of drinking liquids with your meals, drink liquids between meals. Try these low-fiber foods: potatoes; rice; noodles; ripe bananas; applesauce; smooth peanut butter; white bread; chicken or turkey without the skin; lean ground beef; fish; yogurt; or cottage cheese. Avoid the following: greasy, fatty, or fried foods; raw vegetables and fruits; strong spices; and whole-grain cereals and breads. Limit food or beverages with caffeine, such as chocolate, coffee, strong tea, and some sodas. If you have cramping with diarrhea, avoid foods and beverages that cause gas, such as beans, cabbage, beer, and carbonated beverages. Diarrheal illness may cause temporary lactose (dairy) intolerance, so avoid these foods if they are making diarrhea worse. To ER for worsening symptoms, increased pain, fevers, vomiting, decreased urine output, blood in her urine blood in her stools or dark tarry stools. documented in this encounter [facility] 05-18-2022 History of Present illness Narrative Subjective The history is provided by the patient. No plant physiologist was used. HPI Crissy Richter is a 66 year old male who presents today for CC of loose watery diarrhea for 7 days. Treated with antibiotics for post stone removal days starting 05.04.2022 No recent travel out of country, contact with farm or zoo animals. Denies any fever chills body aches, uri symptoms He is drinking voiding, decreased appetite BP 130/82 Pulse 100 Temp 37 C (98.6 F) Resp 21 Wt 76.7 kg (169 lb) SpO2 99% BMI 24.60 kg/m Social History Tobacco Use Smoking status: Never Smokeless tobacco: Never Substance Use Topics Alcohol use: No Drug use: No PAST MEDICAL HISTORY Diagnosis Date Advance directive discussed with patient 03/27/2022 Discussed 03/2022: patient to bring in copies AK (actinic keratosis) 01/28/2017 tearted with cryo 01/28/2017 Benign non-nodular prostatic hyperplasia without lower urinary tract symptoms 01/31/[address] White yearly and gets PSA's and prostate exam. 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 HENT: Negative for congestion. Respiratory: Negative for cough. Gastrointestinal: Positive for diarrhea. Negative for abdominal pain, constipation and vomiting. Genitourinary: Negative for dysuria, flank pain, frequency, hematuria and urgency. Objective Physical Exam Vitals and nursing note reviewed. Pulmonary: Effort: Pulmonary effort is normal. Abdominal: General: Abdomen is flat. Bowel sounds are increased. Palpations: Abdomen is soft. Tenderness: There is no abdominal tenderness. There is no right CVA tenderness, left CVA tenderness, guarding or rebound. Negative signs include Olivarez's sign, Rovsing's sign, McBurney's sign and psoas sign. Skin: General: Skin is warm and dry. Neurological: Mental Status: He is alert and oriented to person, place, and time. Psychiatric: Mood and Affect: Affect normal. ASSESSMENT/PLAN: 1. Diarrhea, unspecified type - ICD9: 787.91, ICD10: R19.7 Suspect cdiff, other Will check cultures and call with resutls, will treat based on culture findings When to seek higher lever of care discussed Encourage hydration - OVA + PARA MICROSCOPIC - ENTERIC BACTERIAL PANEL BY PCR - CDIFF PCR W/RFLX EIA IF POSITIVE Diagnosis and treatment plan were discussed and questions were answered to the patient's satisfaction. Pt acknowledged understanding of concepts and follow up plan. Specific signs and symptoms that would indicate the need for higher level of care were discussed in detail warranting prompt ER evaluation. Shirley Hdez APRN.KIKO documented in this encounter [facility] 05-15-2022 Miscellaneous Notes Patient calls to report diarrhea. Nurse triage completed. Recommend home care. Care advice reviewed. Patient verbalizes understanding. Reason for Disposition MILD-MODERATE diarrhea (e.g., 1-6 times / day more than normal) Answer Assessment - Initial Assessment Questions 1. DIARRHEA SEVERITY: - MILD (SCALE 1-3): Few loose or mushy BMs; increase of 1-3 stools over normal daily number of stools; mild increase in ostomy output. 2. ONSET: Several days 3. BM CONSISTENCY: loose to soft 4. VOMITING: No 5. ABDOMINAL PAIN: No 6. ABDOMINAL PAIN SEVERITY: NA 7. ORAL INTAKE: 32 oz 8. HYDRATION: No dry mouth, weakness, dizziness, or weight loss. Urination this AM. 9. EXPOSURE: No travel, exposure, or spoiled food. 10. ANTIBIOTIC USE: Yes antibiotic in past 2 months 11. OTHER SYMPTOMS: No fever or blood in stool Protocols used: [id number]-[id number]-LU documented in this encounter [facility] 05-04-2022 Miscellaneous Notes Noted and agree. Protocol recommends ER now. Patient agreeable. Reason for Disposition Pain mainly in flank (i.e., in the side, over the lower ribs or just below the ribs) [1] Abdominal pain AND [2] age > 60 years Answer Assessment - Initial Assessment Questions 1. ONSET: Wednesday started having left lower abdomen and left lower back pain. Worse today. 2. LOCATION: See above. 3. SEVERITY: Moderate 4. PATTERN: Constant since Wednesday and worse today. 5. RADIATION: No 6. CAUSE: Hx of kidney stones on right side- Dr. Najera did surgery in 2019 to remove kidney stone. 7. BACK OVERUSE: Helped moved mother in law into fdc Wednesday afternoon. But woke up Wednesday morning with this. 8. MEDICATIONS: Has not tried medication. 9. NEUROLOGIC SYMPTOMS: Has overactive bladder periodically, otherwise no. 10. OTHER SYMPTOMS: Once had slight burning with urination. No blood. Pain in left lower abdomen but not as much as on Sat and Sun. When takes a deep breath the pain increases. More pain today. 11. : N/A Protocols used: Back Hnae-CKBEY-PC, Flank Brvi-XLINL-FK documented in this encounter [facility] 04-28-2022 History of Present illness Narrative Patient presents for Pneumococcal vaccine. Denies any problems at this time. Tolerated injection well. Ronel Norton LPN documented in this encounter [facility] 04-08-2022 Miscellaneous Notes Upon review of the chart patient completed a colonoscopy 12/2017. notified. Kemi Woo MA I think this was routed to the incorrect pool. Routing to PCP pool. Daphnie Best Ma Insulation Batting Machine Operator from [employer] wanted to notify the office that the patient is due for a colonoscopy. This will be a covered service. Please contact the patient to advise on plan of care. documented in this encounter [facility] 03-27-2022 Instructions Yrn Holland MD - 03/27/2022 12:14 PM EDT Please bring in copies of your living will and durable power of health care. documented in this encounter [facility] 03-27-2022 History of Present illness Narrative Medicare Yearly Visit Medical B eligibilty date 06/24/2020 Date of last exam 02/26/2021 PAST MEDICAL HISTORY PAST MEDICAL HISTORY Diagnosis Date AK (actinic keratosis) 01/28/2017 tearted with cryo 01/28/2017 Benign non-nodular prostatic hyperplasia without lower urinary tract symptoms 01/31/[address] White yearly and gets PSA's and prostate exam. 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 Esteban, negative, recheck in 10 yrs FECAL OCCULT BLOOD TEST 02/03/2017 Negative KNEE SCOPE,DIAGNOSTIC 1999 Arthroscopy, knee Right x2 KNEE SCOPE,DIAGNOSTIC 04/14/2006 left ALLERGIES: Patient has no known allergies. Medications reviewed: Yes FAMILY HISTORY FAMILY HISTORY Problem Relation Age of Onset Cancer Mother pancreas, with mets to lungs, passed 05/2016 other (parkinson's disease) Father passed 2006 SOCIAL HISTORY: SOCIAL HISTORY Social History Tobacco Use Smoking status: Never Smoker Smokeless tobacco: Never Used Substance Use Topics Alcohol use: No Drug use: No Crissy works out regularly 3 times per week with stationary bicycling and does an elliptical at home daily for 20 min. He watches his diet for sodium, low fat and low cholesterol most of the time, generally not very much. List of current specialists seen: Dr. Jorge (Urology), optho Dr. Barone (Psych) End of Live Planning discussed including patients advanced directive wishes: Yes I am willing to follow Crissy's advanced directives. PHQ-2 / Depression screen Depression Screening 03/23/2016 03/02/2018 08/02/2020 03/27/2022 PHQ-2 Score 0 0 0 0 PHQ-9 Score - - 2 - Depression screening tool completed and reviewed. Based on score and interview, patient is already diagnosed with depression. Screening tool discussed with patient, and I recommended continuing current plan of care with seeing psych. Functional Ability/Safety Screen 1. Was the patient's timed Up and Go test unsteady or longer than 30 seconds? No 2. Does the patient need help with the phone, transportation, shopping,preparing meals, housework, laundry, medications or managing money? No 3. Does your home have rugs in the hallway, lack of grab bars in the bathroom (N), lack of handrails on the stairs or have poor lighting? No Hearing Evaluation: hard of hearing PHYSICAL EXAM BP 158/84 (BP Site: Left Arm, BP Position: Sitting, BP Cuff Size: Regular Adult) Pulse 90 Resp 14 Ht 176.5 cm (5' 9.5") Wt 80.7 kg (178 lb) BMI 25.91 kg/m BP 132/82 Pulse 90 Resp 14 Ht 176.5 cm (5' 9.5") Wt 80.7 kg (178 lb) BMI 25.91 kg/m Alert and oriented X 3: YES Body mass index is 25.91 kg/m . Visual acuity: see optho See Below ASSESSMENT/PLAN: 66 year old male The following prevention plan was discussed during the office visit and provided to the patient: See below Yrn Holland MD Chief Complaint Patient presents with: Medicare Wellness Exam HPI Crsisy Richter is a 66 year old male who presents here today for Medicare wellness . Patient with Hx of major depression, sever anxiety seeing psych, dyslipidemia, elevated A1c, BPH as well as those reviewed and addressed below and in ROS. Patient has been doing well. His meds per psych have been controlling his mental health much better. No new issues or concerns today. Past medical history, appointments, medications, allergies reviewed. Previous Medical History PAST MEDICAL HISTORY Diagnosis Date AK (actinic keratosis) 01/28/2017 tearted with cryo 01/28/2017 Benign non-nodular prostatic hyperplasia without lower urinary tract symptoms 01/31/[address] White yearly and gets PSA's and prostate exam. 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 Internal hemorrhoids without mention of complication Major depressive disorder, recurrent episode, severe with anxious distress (HCC) 07/30/2021 Seeing Psychiatry, Lizabeth Baumann Medicare annual wellness visit, initial 02/26/2021 Medicare Part b: Last done: 02/26/2021 Microscopic hematuria 11/19/2008 Moderate major depressive disorder with anxiety single episode (HCC) 11/23/2018 Osteoarthritis of finger of right hand 01/28/2017 PIP Severe anxiety 09/16/2021 Seeing Psychiatry, Lizabeth Baumann Well adult exam 05/14/2016 Can have one per , last done 02/23/2019 Previous Surgical History PAST SURGICAL HISTORY Procedure Laterality Date ARTHROSCOPY KNEE DIAGNOSTIC W/WO SYNOVIAL BX SPX 1999 Arthroscopy, knee Right x2 ARTHROSCOPY KNEE DIAGNOSTIC W/WO SYNOVIAL BX SPX 04/14/2006 left COLONOSCOPY 01/14/2018 Dr. Esteban, negative, recheck in 10 yrs COLONOSCOPY FLX DX W/COLLJ SPEC WHEN PFRMD 11/02/2008 repeat 10 yrs FECAL OCCULT BLOOD TEST 02/03/2017 Negative Family History FAMILY HISTORY Problem Relation Age of Onset Cancer Mother pancreas, with mets to lungs, passed 05/2016 other (parkinson's disease) Father passed 2006 Patient Allergies ALLERGIES No Known Allergies Current Medications Current Outpatient Medications on File Prior to Visit Medication Sig mirtazapine (REMERON) 15 mg tablet Take 1 tablet by mouth daily at bedtime. Per Psych, Dr. Barone OLANZapine (ZYPREXA) 5 mg tablet Take 1 tablet by mouth daily at bedtime. Per Psych, Dr. Barone venlafaxine ER (EFFEXOR XR) 75 mg 24 hr capsule Take 1 capsule by mouth once daily. Per Psych, Dr. Barone traZODone (DESYREL) 50 mg tablet Take 2 tablets by mouth daily at bedtime. Take 30-45 minutes before bedtime. Per Psychiatry, Lizabeth Baumann busPIRone (BUSPAR) 15 mg tablet Take 1/2 a tab by mouth twice a day for 2 weeks than one twice a day. Starting Wednesday08/04/2021 CINNAMON Taking 1/4 teaspoon daily jb-nku-mpubs acid-lutein (CENTRUM SILVER) 400-250 mcg chew Take 1 tablet by mouth once daily. glucosamine/msm/chondroitin A (LDLSGMSMCTW-RKVSXF-LIN ORAL) Take by mouth twice daily. No current facility-administered medications on file prior to visit. Social History Social History Tobacco Use Smoking status: Never Smokeless tobacco: Never Substance Use Topics Alcohol use: No Drug use: No Review of Symptoms REVIEW OF SYSTEMS GENERAL: No weight loss, malaise or fevers HEENT: Negative for frequent or significant headaches, No changes in hearing or vision, no nose bleeds or other nasal problems NECK: Negative for lumps, goiter, pain and significant neck swelling RESPIRATORY: Negative for cough, hemoptysis, wheezing, COPD, dyspnea or shortness of breath CARDIOVASCULAR: Negative for chest pain, leg swelling, hypertension, CHF or palpitations GI: No nausea, vomiting, or diarrhea, No heartburn or reflux symptoms, and no blood : No history of dysuria, frequency or incontinence. Can start urination ok and only up 0-1 times a night. MUSCULOSKELETAL: Negative for new o changes in his typical joint pain or swelling, back pain or muscle pain SKIN: Negative for lesions, rash, and itching PSYCH: Negative for sleep disturbance, mood disorder and recent psychosocial stressors HEMATOLOGY/LYMPHOLOGY: Negative for prolonged bleeding, bruising easily or swollen nodes ENDOCRINE: Negative for cold or heat intolerance, polyuria, polydipsia and goiter NEURO: No history of headaches, syncope, paralysis, seizures or tremors EXAM: BP 158/84 (BP Site: Left Arm, BP Position: Sitting, BP Cuff Size: Regular Adult) Pulse 90 Resp 14 Ht 176.5 cm (5' 9.5") Wt 80.7 kg (178 lb) BMI 25.91 kg/m BP 132/82 Pulse 90 Resp 14 Ht 176.5 cm (5' 9.5") Wt 80.7 kg (178 lb) BMI 25.91 kg/m Last 4 Encounter Wt Readings: Date: Wt: 03/27/2022 80.7 kg (178 lb) 07/30/2021 69.4 kg (153 lb) 04/23/2021 73.5 kg (162 lb) 02/26/2021 73.9 kg (163 lb) General Appearance: Well appearing, alert, in no acute distress, well-hydrated, well nourished.. Patient seems to be back to hs normal mental state of health. Skin: Skin color, texture, turgor normal, no suspicious rashes or lesions. Head: Normocephalic, no masses, lesions, tenderness or abnormalities. Eyes: Anicteric sclera. Pupils are equally round and reactive to light. Extraocular movements are intact. . Ears: External ears normal, canals clear. Neck: Supple, no adenopathy; thyroid symmetric, normal size, no bruits. Lungs: Lungs clear to auscultation. No wheezing, rhonchi, rales.. Heart: RRR without murmur, gallop, or rubs. No ectopy. Abdomen: Normal abdominal exam, Abdomen soft, non-tender. Bowel sounds normal. No masses, organomegaly. Extremities: No deformities, edema, skin discoloration, clubbing or cyanosis. Good capillary refill. . Musculoskeletal: Muscular strength intact, No joint swelling, deformity, or tenderness. Peripheral Pulses: Normal. Neurologic: Gait normal. Reflexes normal and symmetric. Sensation to light touch annd crainal nerves 2-12 intact.. Genitalia: Normal, Penis normal. No urethral discharge. Scrotum normal to palpation has stable hydrocele on the right. . No hernia.. Rectal: Normal exam. Prostate slightly enlarged but smooth firm capsule Health Maintenance List ADVANCE DIRECTIVE DISCUSSION Never done COVID-19 VACCINE(5 - Booster for Pfizer series) due on 10/28/2021 INFLUENZA(1) due on 01/22/2022 PNEUMOCOCCAL: 65+(2 - PPSV23 if available, else PCV20) due on 02/26/2022 DTAP,TDAP,TD(3 - Td or Tdap) due on 08/05/2023 DIABETES SCREEN due on 03/20/2025 LIPID SCREEN due on 03/20/2027 PROSTATE CANCER SCREENING DISCUSSION due on 03/20/2027 COLORECTAL CANCER SCREENING due on 01/15/2028 SHINGRIX VACCINE Completed HEPATITIS C SCREENING Discontinued Data reviewed Component Latest Ref Rng & Units 02/26/2021 07/31/2021 03/20/2022 WBC 3.70 - 11.00 k/uL 4.19 5.41 RBC 4.20 - 6.00 m/uL 4.81 4.45 Hemoglobin 13.0 - 17.0 g/dL 13.9 13.4 Hematocrit 39.0 - 51.0 % 43.3 40.9 MCV 80.0 - 100.0 fL 90.0 91.9 MCH 26.0 - 34.0 pg 28.9 30.1 MCHC 30.5 - 36.0 g/dL 32.1 32.8 RDW-CV 11.5 - 15.0 % 12.9 13.6 Platelet Count 150 - 400 k/uL 262 296 MPV 9.0 - 12.7 fL 9.9 9.2 Neut% % 61.6 46.3 Abs Neut (ANC) 1.45 - 7.50 k/uL 2.57 2.51 Lymph% % 22.2 25.0 Abs Lymph 1.00 - 4.00 k/uL 0.93 (L) 1.35 Antelope% % 11.7 9.6 Abs Antelope <0.87 k/uL 0.49 0.52 Eosin% % 3.1 17.2 Abs Eosin <0.46 k/uL 0.13 0.93 (H) Baso% % 1.4 1.5 Abs Baso <0.11 k/uL 0.06 0.08 Immature Gran % % 0.4 IMMATURE GRANS (ABS) <0.10 k/uL <0.03 NRBC /100 WBC 0.0 Absolute nRBC <0.01 k/uL <0.01 <0.01 DTYPE Auto Nucleated Reds 0 /100 WBC 0.0 Diff Type Auto Diff Protein, Total 6.3 - 8.0 g/dL 6.7 Albumin 3.9 - 4.9 g/dL 4.1 Calcium 8.5 - 10.2 mg/dL 9.1 Bilirubin, Total 0.2 - 1.3 mg/dL <0.2 (L) Alkaline Phosphatase 38 - 113 U/L 110 AST 14 - 40 U/L 24 ALT 10 - 54 U/L 30 Glucose 74 - 99 mg/dL 103 (H) BUN 9 - 24 mg/dL 20 Creatinine 0.73 - 1.22 mg/dL 1.12 Sodium 136 - 144 mmol/L 142 Potassium 3.7 - 5.1 mmol/L 4.2 Chloride 97 - 105 mmol/L 106 (H) CO2 22 - 30 mmol/L 26 Anion Gap 9 - 18 mmol/L 10 eGFR >=60 mL/min/1.73m 72 Color Yellow Yellow Clarity Clear Clear Glucose, Urine Negative Negative Bilirubin, Urine Negative Negative Ketones, Urine Negative Negative Specific [place], Ur 1.005 - 1.030 1.027 Hemoglobin/Blood,Ur Negative Negative pH, Urine 5.0 - 8.0 5.5 Protein, Urine Negative Trace (A) Urobilinogen Negative Negative Nitrites Negative Negative Leukest Negative Negative WBC, Urine 0-5 /HPF 0-5 /HPF RBC, Urine 0-3 /HPF 0-3 /HPF Calcium Oxalate Crystals None Seen /HPF Few (A) Total Cholesterol, Nonfasting <200 mg/dL 216 (H) 238 (H) Triglycerides, Nonfasting <150 mg/dL 59 295 (H) HDL Cholesterol, Nonfasting >39 mg/dL 51 42 LDL Cholesterol, Nonfasting <100 mg/dL 153 (H) 137 (H) Non HDL Cholesterol, Nonfasting <130 mg/dL 165 (H) 196 (H) VLDL Cholesterol, Nonfasting <30 mg/dL 12 59 (H) Total Chol/HDL Ratio, Nonfasting <5.10 mg/dL 4.24 5.67 (H) LDL/HDL Ratio, Nonfasting <2.54 mg/dL 3.00 (H) 3.26 (H) Hemoglobin A1C 4.3 - 5.6 % 5.8 (H) 5.6 Estimated Average Glucose mg/dL 120 114 PSA <2.60 ng/mL 1.20 1.12 TSH 0.270 - 4.200 mIU/L 1.900 A/P ASSESSMENT/PLAN: 1. Medicare annual wellness visit, initial - ICD9: V70.0, ICD10: Z00.00 (primary diagnosis) - Counseled on healthy diet and regular exercise - Patient was counseled [id number] by myself (the billing provider) for the following immunizations and vaccine components, including side effects: COVID-19 and Influenza. Patient consents for immunization and understands risks and benefits. A VIS sheet on each immunization was given to the patient. - Follow up for annual exam in one year - will have NV in a month for PCV-20 2. Elevated hemoglobin A1c - ICD9: 790.29, ICD10: R73.09 - improved with life style changes. Patient to continue. 3. Dyslipidemia - ICD9: 272.4, ICD10: E78.5 - suboptimal control - Encouraged following a low fat, low cholesterol diet. - Discussed the benefits of regular aerobic exercise and weight loss. - Encouraged following a low carbohydrate, healthy oil intake diet. - Continue current therapy. - handout given on foods to try to avoid. 4. Major depressive disorder, recurrent episode, severe with anxious distress (HCC) - ICD9: 296.33, ICD10: F33.2 - much improved and management per Psych 5. Severe anxiety - ICD9: 300.00, ICD10: F41.9 - as per #4 6. Benign non-nodular prostatic hyperplasia without lower urinary tract symptoms - ICD9: 600.90, ICD10: N40.0 - stable no issues. 7. Living will in place - ICD9: V49.89, ICD10: Z78.9 - patient to bring in copies. 8. Advance directive discussed with patient - ICD9: V65.49, ICD10: Z71.89 - as per #7 9. Encounter for immunization - ICD9: V03.89, ICD10: Z23 - PFIZER-BIONTTYMR COVID-19 BIVALENT BOOSTER VACCINE, AGE 12+ YR: given - INFLUENZA SEASONAL QUADRIVALENT HIGH DOSE AGE 65+: given F/u in a year or sooner if issues. I spent a total of 40 minutes on the date of the service which included preparing to see the patient, [id number] patient care, completing clinical documentation, performing a medically appropriate examination, counseling and educating the patient/family/caregiver and ordering medications, tests, or procedures. Yrn Holland MD documented in this encounter [facility] 03-16-2022 Miscellaneous Notes Left detailed message with on orders. Kemi Woo MA Let patient know orders for blood work and urine test are placed. Does not need to fast and should hydrate well. Patient calls to ask provider to place yearly lab orders prior to his annual physical on 03/27/2022 so results can be reviewed at appointment. Please notify patient if provider agrees and orders are placed at [phone]. Ana Lilia Grewal, RN documented in this encounter [facility] 10-09-2021 History of Present illness Narrative Patient scheduled to see Dr. Holland in March for his annual physical. Pt's was requesting that we don't call anymore about appointments now that he is scheduled in March. LALIT Castillo October 09, 2021 12:59 PM POPULATION HEALTH NAVIGATION OUTREACH Action/FYI Patient due for Follow Up, AD Left message and sent [employer] Pt identified by name and : NO Outreach Outcome/Action Unable to reach patient: Left message [facility] GROUPhart message sent Reason for Outreach Care Gap or Scheduling/Wellness visits Payer: Payor: [employer] MEDICARE / Plan: [employer] MEDICARE PPO / Product Type: PPO / Care Gap Reviewed:: Follow-up appointment Reminder: Reminder note to check Health Maintenance for items below Health Maintenance items due: PNEUMOVAX AGE 65 AND OVER WITH 5YR LOOKBACK(1) Never done ADVANCE DIRECTIVE DISCUSSION Never done COVID-19 VACCINE(4 - Booster for Pfizer series) due on 07/07/2021 Message Sent to Practice: No Navigation Signature: Ned Bird Pss October 09, 2021 9:00 AM documented in this encounter [facility] 09-16-2021 Miscellaneous Notes Med record updated. called and states pt is not doing well due to his anxiety pt has apt 09-22-21 with Counselor at [facility] associated with Dr. Russ Barone. They are cancelling the apt in the office on 09-24-21 due to the severe anxiety. Update on medication. Taking: Lexapro 10 mg (1) daily Abilify 7.5 mg (1) daily Ativan 0.25 mg (1) as needed Trazodone 50 mg (1) at bedtime. Was on 2 but pt was waking up dizzy and he is back to 1 at bedtime. Weaning off the Cymbalta will keep you updated on pt. If for any reason you need to call, please call after 3:30 pm on Wednesday when knows she will be home. Do not call the house to speak to pt. This gets him to worked up. Valery Moseley LPN documented in this encounter [facility] Evaluation note Diagnosis Major depressive disorder, recurrent episode, severe with anxious distress (HCC) Severe anxiety [facility] Diagnosis Dyslipidemia- Primary Other and unspecified hyperlipidemia Elevated hemoglobin A1c Other abnormal blood chemistry Disorder of prostate Unspecified disorder of prostate Medication management Encounter for long-term (current) use of other medications [facility] Diagnosis Medicare annual wellness visit, initial- Primary Routine general medical examination at a health care facility Elevated hemoglobin A1c Other abnormal blood chemistry Dyslipidemia Other and unspecified hyperlipidemia Major depressive disorder, recurrent episode, severe with anxious distress (HCC) Severe anxiety Benign non-nodular prostatic hyperplasia without lower urinary tract symptoms Living will in place Advance directive discussed with patient Other specified counseling Encounter for immunization Need for other specified prophylactic vaccination against single bacterial disease [facility] Diagnosis Encounter for immunization- Primary Need for other specified prophylactic vaccination against single bacterial disease [facility] Diagnosis Diarrhea, unspecified type- Primary [facility] Diagnosis Elevated alkaline phosphatase level- Primary Other nonspecific abnormal serum enzyme levels Elevated serum creatinine Other nonspecific findings on examination of blood [facility] Elevated hemoglobin A1c- Primary Other abnormal blood chemistry Bilateral carotid artery stenosis Occlusion and stenosis of carotid artery without mention of cerebral infarction [facility] Diagnosis Diarrhea, unspecified type- Primary [facility] Diagnosis Dementia without behavioral disturbance (HCC)- Primary Dementia, unspecified, without behavioral disturbance Memory difficulties Memory loss Esophageal dysphagia Dysphagia, pharyngoesophageal phase [facility] Diagnosis Oropharyngeal dysphagia Dysphagia, oropharyngeal phase [facility] Diagnosis Dementia without behavioral disturbance (HCC) Dementia, unspecified, without behavioral disturbance Memory difficulties Memory loss [facility] Diagnosis Encounter for Medicare annual wellness exam- Primary Routine general medical examination at a health care facility Dyslipidemia Other and unspecified hyperlipidemia Elevated hemoglobin A1c Other abnormal blood chemistry Major depressive disorder, recurrent episode, severe with anxious distress (HCC) Severe anxiety Oropharyngeal dysphagia Dysphagia, oropharyngeal phase Benign non-nodular prostatic hyperplasia without lower urinary tract symptoms Bilateral carotid artery stenosis Occlusion and stenosis of carotid artery without mention of cerebral infarction Advance directive discussed with patient Other specified counseling Encounter for immunization Need for other specified prophylactic vaccination against single bacterial disease [facility] Diagnosis Encounter for Medicare annual wellness exam- Primary Routine general medical examination at a health care facility Dyslipidemia Other and unspecified hyperlipidemia Elevated hemoglobin A1c Other abnormal blood chemistry Bilateral carotid artery stenosis Occlusion and stenosis of carotid artery without mention of cerebral infarction Major depressive disorder, recurrent episode, severe with anxious distress (HCC) Severe anxiety Benign non-nodular prostatic hyperplasia without lower urinary tract symptoms Advance directive discussed with patient Other specified counseling Medication management Encounter for long-term (current) use of other medications Encounter for immunization Need for other specified prophylactic vaccination against single bacterial disease Elevated blood pressure reading without diagnosis of hypertension [facility] Diagnosis Elevated blood pressure reading without diagnosis of hypertension- Primary [facility] Diagnosis Transient alteration of awareness- Primary Shoulder weakness Other symptoms referable to shoulder joint Nystagmus Nystagmus, unspecified Transient global amnesia Bilateral carotid artery stenosis Occlusion and stenosis of carotid artery without mention of cerebral infarction [facility] Diagnosis Transient alteration of awareness Transient global amnesia [facility] Diagnosis Bilateral carotid artery stenosis- Primary Occlusion and stenosis of carotid artery without mention of cerebral infarction documented in this encounter [facility] note* Diagnosis Periumbilical abdominal pain- Primary Abdominal pain, periumbilic Lower abdominal pain Abdominal pain, other specified site documented in this encounter [facility] for visit Narrative* MRI/CT (Urgent) - Closed Specialty Diagnoses / Procedures Referred By Adair t Referred To Contact CT IMAGING Diagnoses Transient alteration of awareness Transient global amnesia Procedures CT BRAIN WO IVCON CT HEAD/BRAIN W/O CONTRAST MATERIAL Yrn Holland MD [address] [place] [address] Phone: tel: fax: [facility] Referral ID Status Reason Start Date Expiration Date V isits Requested Visits Authorized [id number] Closed Auto-Generate d Referral 11/20/2024 12/20/2025 1 1 [facility] Summary Purpose Family History No Family History Records FoundNo Family History Records FoundNo Family History Records Found Advance Directives No Advanced Directives Records FoundNo Advanced Directives Records FoundNo Advanced Directives Records Found Health Concerns Infection Onset Date Last Indicated Resolved Time C. difficile 05/18/2022 05/18/2022 Infection Onset Date Last Indicated Resolved Time C. difficile 05/18/2022 05/18/2022 Reason for Referral Specialty Diagnoses / Procedures Referred By Adair josue Referred To Contact MR IMAGING Diagnoses Dementia without behavioral disturbance (HCC) Memory difficulties Procedures MRI BRAIN WO IVCON MRI BRAIN BRAIN STEM W/O CONTRAST MATERIAL Yrn Holland MD [address] [place] [address] [place] [id number] Referral ID Status Reason Start Date Expiration Date Visits Requested Visits Authorized [id number] Authorized Auto-Generat ed Referral 02/02/2023 03/03/2024 1 1 Referral ID Status Reason Start Date Expiration Date V isits Requested Visits Authorized [id number] Closed Auto-Generate d Referral 02/02/2023 03/03/2024 1 1 Additional Source Comments Source Comments (unrecognize d section and content) In the event this informatio n is protected by the Federal Confidentiality of Alcohol and Drug Abuse Patient Records regulations: The Federal rules restrict any use of the information to criminally investigate or prosecute any alcohol or drug abuse patient.[facility] the event this information is protected by the Federal Confidentiality of Alcohol and Drug Abuse Patient Records regulations: The Federal rules restrict any use of the information to criminally investigate or prosecute any alcohol or drug abuse patient.[facility] the event this information is protected by the Federal Confidentiality of Alcohol and Drug Abuse Patient Records regulations: The Federal rules restrict any use of the information to criminally investigate or prosecute any alcohol or drug abuse patient.[facility] the event this information is protected by the Federal Confidentiality of Alcohol and Drug Abuse Patient Records regulations: The Federal rules restrict any use of the information to criminally investigate or prosecute any alcohol or drug abuse patient.[facility] the event this information is protected by the Federal Confidentiality of Alcohol and Drug Abuse Patient Records regulations: The Federal rules restrict any use of the information to criminally investigate or prosecute any alcohol or drug abuse patient.[facility] the event this information is protected by the Federal Confidentiality of Alcohol and Drug Abuse Patient Records regulations: The Federal rules restrict any use of the information to criminally investigate or prosecute any alcohol or drug abuse patient.[facility] the event this information is protected by the Federal Confidentiality of Alcohol and Drug Abuse Patient Records regulations: The Federal rules restrict any use of the information to criminally investigate or prosecute any alcohol or drug abuse patient.[facility] the event this information is protected by the Federal Confidentiality of Alcohol and Drug Abuse Patient Records regulations: The Federal rules restrict any use of the information to criminally investigate or prosecute any alcohol or drug abuse patient.[facility] the event this information is protected by the Federal Confidentiality of Alcohol and Drug Abuse Patient Records regulations: The Federal rules restrict any use of the information to criminally investigate or prosecute any alcohol or drug abuse patient.[facility] the event this information is protected by the Federal Confidentiality of Alcohol and Drug Abuse Patient Records regulations: The Federal rules restrict any use of the information to criminally investigate or prosecute any alcohol or drug abuse patient.[facility] the event this information is protected by the Federal Confidentiality of Alcohol and Drug Abuse Patient Records regulations: The Federal rules restrict any use of the information to criminally investigate or prosecute any alcohol or drug abuse patient.[facility] the event this information is protected by the Federal Confidentiality of Alcohol and Drug Abuse Patient Records regulations: The Federal rules restrict any use of the information to criminally investigate or prosecute any alcohol or drug abuse patient.[facility] the event this information is protected by the Federal Confidentiality of Alcohol and Drug Abuse Patient Records regulations: The Federal rules restrict any use of the information to criminally investigate or prosecute any alcohol or drug abuse patient.[facility] the event this information is protected by the Federal Confidentiality of Alcohol and Drug Abuse Patient Records regulations: The Federal rules restrict any use of the information to criminally investigate or prosecute any alcohol or drug abuse patient.[facility] the event this information is protected by the Federal Confidentiality of Alcohol and Drug Abuse Patient Records regulations: The Federal rules restrict any use of the information to criminally investigate or prosecute any alcohol or drug abuse patient.[facility] the event this information is protected by the Federal Confidentiality of Alcohol and Drug Abuse Patient Records regulations: The Federal rules restrict any use of the information to criminally investigate or prosecute any alcohol or drug abuse patient.[facility] the event this information is protected by the Federal Confidentiality of Alcohol and Drug Abuse Patient Records regulations: The Federal rules restrict any use of the information to criminally investigate or prosecute any alcohol or drug abuse patient.[facility] the event this information is protected by the Federal Confidentiality of Alcohol and Drug Abuse Patient Records regulations: The Federal rules restrict any use of the information to criminally investigate or prosecute any alcohol or drug abuse patient.[facility] the event this information is protected by the Federal Confidentiality of Alcohol and Drug Abuse Patient Records regulations: The Federal rules restrict any use of the information to criminally investigate or prosecute any alcohol or drug abuse patient.[facility] the event this information is protected by the Federal Confidentiality of Alcohol and Drug Abuse Patient Records regulations: The Federal rules restrict any use of the information to criminally investigate or prosecute any alcohol or drug abuse patient.[facility] the event this information is protected by the Federal Confidentiality of Alcohol and Drug Abuse Patient Records regulations: The Federal rules restrict any use of the information to criminally investigate or prosecute any alcohol or drug abuse patient.[facility] the event this information is protected by the Federal Confidentiality of Alcohol and Drug Abuse Patient Records regulations: The Federal rules restrict any use of the information to criminally investigate or prosecute any alcohol or drug abuse patient.[facility] the event this information is protected by the Federal Confidentiality of Alcohol and Drug Abuse Patient Records regulations: The Federal rules restrict any use of the information to criminally investigate or prosecute any alcohol or drug abuse patient.[facility] the event this information is protected by the Federal Confidentiality of Alcohol and Drug Abuse Patient Records regulations: The Federal rules restrict any use of the information to criminally investigate or prosecute any alcohol or drug abuse patient.[facility] the event this information is protected by the Federal Confidentiality of Alcohol and Drug Abuse Patient Records regulations: The Federal rules restrict any use of the information to criminally investigate or prosecute any alcohol or drug abuse patient.[facility] the event this information is protected by the Federal Confidentiality of Alcohol and Drug Abuse Patient Records regulations: The Federal rules restrict any use of the information to criminally investigate or prosecute any alcohol or drug abuse patient.[facility] the event this information is protected by the Federal Confidentiality of Alcohol and Drug Abuse Patient Records regulations: The Federal rules restrict any use of the information to criminally investigate or prosecute any alcohol or drug abuse patient.[facility] the event this information is protected by the Federal Confidentiality of Alcohol and Drug Abuse Patient Records regulations: The Federal rules restrict any use of the information to criminally investigate or prosecute any alcohol or drug abuse patient.[facility] the event this information is protected by the Federal Confidentiality of Alcohol and Drug Abuse Patient Records regulations: The Federal rules restrict any use of the information to criminally investigate or prosecute any alcohol or drug abuse patient.[facility] the event this information is protected by the Federal Confidentiality of Alcohol and Drug Abuse Patient Records regulations: The Federal rules restrict any use of the information to criminally investigate or prosecute any alcohol or drug abuse patient.[facility] the event this information is protected by the Federal Confidentiality of Alcohol and Drug Abuse Patient Records regulations: The Federal rules restrict any use of the information to criminally investigate or prosecute any alcohol or drug abuse patient.[facility] the event this information is protected by the Federal Confidentiality of Alcohol and Drug Abuse Patient Records regulations: The Federal rules restrict any use of the information to criminally investigate or prosecute any alcohol or drug abuse patient.[facility] the event this information is protected by the Federal Confidentiality of Alcohol and Drug Abuse Patient Records regulations: The Federal rules restrict any use of the information to criminally investigate or prosecute any alcohol or drug abuse patient.[facility] the event this information is protected by the Federal Confidentiality of Alcohol and Drug Abuse Patient Records regulations: The Federal rules restrict any use of the information to criminally investigate or prosecute any alcohol or drug abuse patient.[facility] the event this information is protected by the Federal Confidentiality of Alcohol and Drug Abuse Patient Records regulations: The Federal rules restrict any use of the information to criminally investigate or prosecute any alcohol or drug abuse patient.[facility] the event this information is protected by the Federal Confidentiality of Alcohol and Drug Abuse Patient Records regulations: The Federal rules restrict any use of the information to criminally investigate or prosecute any alcohol or drug abuse patient.[facility] the event this information is protected by the Federal Confidentiality of Alcohol and Drug Abuse Patient Records regulations: The Federal rules restrict any use of the information to criminally investigate or prosecute any alcohol or drug abuse patient.[facility] the event this information is protected by the Federal Confidentiality of Alcohol and Drug Abuse Patient Records regulations: The Federal rules restrict any use of the information to criminally investigate or prosecute any alcohol or drug abuse patient.[facility] the event this information is protected by the Federal Confidentiality of Alcohol and Drug Abuse Patient Records regulations: The Federal rules restrict any use of the information to criminally investigate or prosecute any alcohol or drug abuse patient.[facility] the event this information is protected by the Federal Confidentiality of Alcohol and Drug Abuse Patient Records regulations: The Federal rules restrict any use of the information to criminally investigate or prosecute any alcohol or drug abuse patient.[facility] the event this information is protected by the Federal Confidentiality of Alcohol and Drug Abuse Patient Records regulations: The Federal rules restrict any use of the information to criminally investigate or prosecute any alcohol or drug abuse patient.[facility] the event this information is protected by the Federal Confidentiality of Alcohol and Drug Abuse Patient Records regulations: The Federal rules restrict any use of the information to criminally investigate or prosecute any alcohol or drug abuse patient.[facility] the event this information is protected by the Federal Confidentiality of Alcohol and Drug Abuse Patient Records regulations: The Federal rules restrict any use of the information to criminally investigate or prosecute any alcohol or drug abuse patient.[facility] the event this information is protected by the Federal Confidentiality of Alcohol and Drug Abuse Patient Records regulations: The Federal rules restrict any use of the information to criminally investigate or prosecute any alcohol or drug abuse patient.[facility] Hospital[facility] the event this information is protected by the Federal Confidentiality of Alcohol and Drug Abuse Patient Records regulations: The Federal rules restrict any use of the information to criminally investigate or prosecute any alcohol or drug abuse patient.[facility] the event this information is protected by the Federal Confidentiality of Alcohol and Drug Abuse Patient Records regulations: The Federal rules restrict any use of the information to criminally investigate or prosecute any alcohol or drug abuse patient.[facility] the event this information is protected by the Federal Confidentiality of Alcohol and Drug Abuse Patient Records regulations: The Federal rules restrict any use of the information to criminally investigate or prosecute any alcohol or drug abuse patient.[facility] Reason for Visit (unrecogniz ed section and content) Reason Comments Patient Update medication update Reason Onset Date Comments Population Health Navigation Outreach 10/09/2021 [employer] Care Gaps Reason Comments Orders Reason Comments Medicare Wellness Exam Reason Comments Procedure Insurance Inquiry Reason Comments Imm/Inj Reason Comments Back Pain Reason Comments Diarrhea Reason Comments Diarrhea Possible C-Diff x 1 week Reason Comments Patient Question Reason Comments Results Reason Comments Diarrhea Diarrhea x 1 day Reason Comments Follow Up Reason Comments Authorization for MRI and Swallowing Mckenna t Reason Comments Patient Update Specialty Diagnoses / Procedures Referred By Contac t Referred To Contact MR IMAGING Diagnoses Dementia without behavioral disturbance (HCC) Memory difficulties Procedures MRI BRAIN WO IVCON MRI BRAIN BRAIN STEM W/O CONTRAST MATERIAL Yrn Holland MD [address] [place] [address] Mr Imaging [facility] Referral ID Status Reason Start Date Expiration Date V isits Requested Visits Authorized [id number] Closed Auto-Generate d Referral 02/02/2023 03/03/2024 1 1 Reason Comments Covid Positive Reason Comments Outside Urology Reason Comments Outside [id number] Ordered PSA Reason Comments Question on a vaccine Reason Comments Follow Up Blood pressure Reason Comments Outside [id number] Ordered Reason Onset Date Comments Population Health Navigation Outreach 08/10/2024 [employer] High Risk- Attempt 1 Reason Onset Date Comments Population Health Navigation Outreach 08/16/2024 [employer] high risk attempt 2 Reason Onset Date Comments 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 Janeth sanchez Care Teams (unrecognized sec tion and content) Occupational Therapy Department Chair Relationship Specialty Start Date End Date Yrn Holland MD [address] [place] [address] PCP - General Family Practice 05/14/16 Occupational Therapy Department Chair Relationship Specialty Start Date End Date Yrn Holland MD [address] [facility] [place] [address] PCP - General Family Practice 05/14/16 Occupational Therapy Department Chair Relationship Specialty Start Date End Date Yrn Holland MD [facility] [place] [address] PCP - General Family Practice 05/14/16 Occupational Therapy Department Chair Relationship Specialty Start Date End Date Ynr Holland MD [address] [place] [address], [place] [address] PCP - General Family Medicine 05/14/16 Occupational Therapy Department Chair Relationship Specialty Start Date End Date Yrn Holland MD [address] [place] [address], [place] [address] PCP - General Family Medicine 05/14/16 Occupational Therapy Department Chair Relationship Specialty Start Date End Date Yrn Holland MD [address] [place] [address], [place] [address] PCP - General Family Medicine 05/14/16 Occupational Therapy Department Chair Relationship Specialty Start Date End Date Yrn Holland MD [address] [place] [address], [place] [address] PCP - General Family Medicine 05/14/16 Occupational Therapy Department Chair Relationship Specialty Start Date End Date Yrn Holland MD [address] [place] [address], [place] [address] PCP - General Family Medicine 05/14/16 Occupational Therapy Department Chair Relationship Specialty Start Date End Date Yrn Holland MD [address] [place] [address], [place] [address] PCP - General Family Medicine 05/14/16 Occupational Therapy Department Chair Relationship Specialty Start Date End Date Yrn Holland MD [address] [place] [address] PCP - General Family Medicine 05/14/16 Occupational Therapy Department Chair Relationship Specialty Start Date End Date Yrn Holland MD [address] [place] [address] PCP - General Family Medicine 05/14/16 Occupational Therapy Department Chair Relationship Specialty Start Date End Date Yrn Holland MD [address] [place] [address] PCP - General Family Medicine 05/14/16 Occupational Therapy Department Chair Relationship Specialty Start Date End Date Yrn Holland MD [address] [place] [address] PCP - General Family Medicine 05/14/16 Occupational Therapy Department Chair Relationship Specialty Start Date End Date Yrn Holland MD [address] [place] [address] PCP - General Family Medicine 05/14/16 Occupational Therapy Department Chair Relationship Specialty Start Date End Date Yrn Holland MD [address] [place] [address] PCP - General Family Medicine 05/14/16 Occupational Therapy Department Chair Relationship Specialty Start Date End Date Yrn Holland MD [address] [place] [address] PCP - General Family Medicine 05/14/16 Occupational Therapy Department Chair Relationship Specialty Start Date End Date Yrn Holland MD [address] [place] [address] PCP - General Family Medicine 05/14/16 Occupational Therapy Department Chair Relationship Specialty Start Date End Date Yrn Holland MD [address] [place] [address] PCP - General Family Medicine 05/14/16 Occupational Therapy Department Chair Relationship Specialty Start Date End Date Yrn Holland MD [address] [place] [address] PCP - General Family Medicine 05/14/16 Occupational Therapy Department Chair Relationship Specialty Start Date End Date Yrn Holland MD [address] [place] [address] PCP - General Family Medicine 05/14/16 Occupational Therapy Department Chair Relationship Specialty Start Date End Date Yrn Holland MD [address] [place] [address] PCP - General Family Medicine 05/14/16 Occupational Therapy Department Chair Relationship Specialty Start Date End Date Yrn Holland MD [address] [place] [address] PCP - General Family Medicine 05/14/16 Occupational Therapy Department Chair Relationship Specialty Start Date End Date Yrn Holland MD [address] [place] [address] PCP - General Family Medicine 05/14/16 Occupational Therapy Department Chair Relationship Specialty Start Date End Date Yrn Holland MD [address] [place] [address] PCP - General Family Medicine 05/14/16 Occupational Therapy Department Chair Relationship Specialty Start Date End Date Yrn Holland MD [address] [place] [address] PCP - General Family Medicine 05/14/16 Occupational Therapy Department Chair Relationship Specialty Start Date End Date Yrn Holland MD [address] [place] [address] PCP - General Family Medicine 05/14/16 Ned Munoz APRN.[employer]ETS SUPERVISOR [address] [place] [address] Public Policy Associate Family Medicine 04/29/24 Felecia Quiroz PA-C [address] [place] [address] Public Policy Associate Family Medicine 04/29/24 Occupational Therapy Department Chair Relationship Specialty Start Date End Date Yrn Holland MD [address] [place] [address] PCP - General Family Medicine 05/14/16 Ned Munoz APRN.[employer]AST[employer]ETS SUPERVISOR [address] [place] [address] Public Policy Associate Family Medicine 04/29/24 Felecia Quiroz PA-C [address] [place] [address] Public Policy Associate Family Medicine 04/29/24 Occupational Therapy Department Chair Relationship Specialty Start Date End Date Yrn Holland MD [address] [place] [address] PCP - General Family Medicine 05/14/16 Ned Munoz APRN.[employer]AST[employer] SHEETS SUPERVISOR [address] [place] [address] Public Policy Associate Family Medicine 04/29/24 Felecia Quiroz PA-C [address] [place] [address] Public Policy Associate Family [facility] 04/29/24 Occupational Therapy Department Chair Relationship Specialty Start Date End Date Yrn Holland MD [address] [place] [address] PCP - General Family Medicine 08/28/24 Ned Munoz, CHEMO.[employer]ETS SUPERVISOR [address] [place] [address] Public Policy Associate Family [facility] 04/29/24 Felecia Quiroz PA-C [address] [place] [address] [facility] 04/29/24 Occupational Therapy Department Chair Relationship Specialty Start Date End Date Yrn Holland MD [address] [place] [address] PCP - General Family Medicine 08/28/24 Ned Munoz, APPLICATION COUNSELOR.PLAST[employer]ETS SUPERVISOR [facility] [place] [address] [facility] Family Medicine 10/23/24 Felecia Quiroz PA-C [address] [place] [address] Public Policy Associate Family Medicine 10/23/24 Occupational Therapy Department Chair Relationship Specialty Start Date End Date Yrn Holland MD [address] [place] [address] PCP - General Family Medicine 08/28/24 Ned Munoz, APPLICATION COUNSELOR.[employer]ETS SUPERVISOR [address] [place] [address] Public Policy Associate Family Medicine 10/23/24 Felecia Quiroz PA-C [address] [place] [address] Public Policy Associate Family Medicine 10/23/24 Occupational Therapy Department Chair Relationship Specialty Start Date End Date Yrn Holland MD [address] [place] [address] PCP - General Family Medicine 08/28/24 Ned Munoz APRN.[employer] SUPERVISOR [address] [place] [address] Public Policy Associate Family Medicine 10/23/24 Felecia Quiroz PA-C [facility] [place] [address] Public Policy Associate Family Medicine 10/23/24 Occupational Therapy Department Chair Relationship Specialty Start Date End Date Yrn Holland MD [address] [place] [address] PCP - General Family Medicine 08/28/24 Ned Munoz APRN.PLAST[employer]ETS SUPERVISOR [address] [place] [address] Public Policy Associate Family Medicine 10/23/24 Felecia Quiroz PA-C [facility] [place] [address] Public Policy Associate Family Medicine 10/23/24 Occupational Therapy Department Chair Relationship Specialty Start Date End Date Yrn Holland MD [address] [place] [address] PCP - General Family Medicine 08/28/24 Ned Munoz APRN.PLAST[employer] SHEETS SUPERVISOR [facility] [place] [address] Public Policy Associate Family Medicine 10/23/24 Felecia Quiroz PA-C [address] [place] [address] [facility] Occupational Therapy Department Chair Relationship Specialty Start Date End Date Yrn Holland MD [address] [place] [address] PCP - General Family Medicine 08/28/24 Ned Munoz APRN.PLAST[employer]ETS SUPERVISOR [address] [place] [address] [facility] Family [facility] 10/23/24 Felecia Quiroz PA-C [address] [place] [address] [facility] 10/23/24 Occupational Therapy Department Chair Relationship Specialty Start Date End Date Yrn Holland MD [address] [place] [address] PCP - General Family Medicine 08/28/24 Ned Munoz APRN.[employer]ETS SUPERVISOR [address] [place] [address] Public Policy Associate Family Medicine 10/23/24 Felecia Quiroz PA-C [address] [place] [address] Public Policy Associate Family Medicine 10/23/24 Occupational Therapy Department Chair Relationship Specialty Start Date End Date Yrn Holland MD [address] [place] [address] PCP - General Family Medicine 08/28/24 Ned Munoz APRN.[employer]ETS SUPERVISOR [address] [place] [address] Public Policy Associate Family Medicine 10/23/24 Felecia Quiroz PA-C [address] [place] [address] Public Policy Associate Family Medicine 10/23/24 Occupational Therapy Department Chair Relationship Specialty Start Date End Date Yrn Holland MD [address] [place] [address] PCP - General Family Medicine 08/28/24 Ned Munoz APRN.PL[employer]ETS SUPERVISOR [address] [place] [address] Public Policy Associate Family Medicine 10/23/24 Felecia Quiroz PA-C [facility] [place] [address] [facility] 10/23/24 Occupational Therapy Department Chair Relationship Specialty Start Date End Date Yrn Holland MD [address] [place] [address] PCP - General Family Medicine 08/28/24 Ned Munoz APRN.PLAST[employer] SHEETS SUPERVISOR [facility] [place] [address] Public Policy Associate Family Medicine 10/23/24 Felecia Quiroz PA-C [address] [place] [address] Public Policy Associate Family Medicine 10/23/24 (unrecognized sect ion and content) No Status Records FoundNo Status Records FoundNo Status Records Found INFORMATION SOURCE (unrecogn ized section and content) DATE CREATED AUTHOR 06/17/2022 [facility] DATE CREATED AUTHOR AUTHOR'S ORGANIZ ATION 03/23/2025 [facility] DATE CREATED AUTHOR AUTHOR'S ORGANIZ ATION 03/27/2025 [facility] FOR RECORDS PERTAINING TO PATIENTS WHO ARE [...] BE BASED ON THE PRIMARY CLINICAL RECORDS. [facility] [employer] provides no warranty or guarantee of the accuracy or completeness of information in this document.
[2025-04-01 06:51] LABS: Prothrombin Time (Protime)PT. 13.4 SECONDS (11.7-14.9)
[2025-04-01 06:52] LABS: Partial Thromboplast Time 24.5 Seconds (24.1-36.2)
--- NOTE | 2025-04-01 06:54 | RAD_ITS ---
PROCEDURE: SHOULDER MIN 2 VIEWS 04/01/2025 REASON FOR EXAM: FALL DOWN STAIRS TECHNIQUE: Procedure Code: RADSH Modality: DX Procedure: SHOULDER MIN 2 VIEWS Laterality: Left COMPARISON: None. FINDINGS: Bones: No acute bony abnormalities. Joints: Unremarkable. Soft tissues: No soft tissue abnormalities. RAD/Shoulder min 2 Views IMPRESSION: No acute osseous abnormalities. Reading Location: [id number]
[2025-04-01] MEDS: 0.9% Normal Saline (1000mL) 1,000 ML 1000 ML IV (07:00)
[2025-04-01 07:03] VITALS: BP 151/94; PULSE 89; RESP 23; O2SAT 100
[2025-04-01 07:03] LABS: Troponin T High Sensitivity 13 ng/L (<=22)
[2025-04-01 07:05] LABS: Alcohol, Blood (Medical)-Serum < 10.1 mg/dL (<=10.0)
[2025-04-01 07:06] LABS: AST(SGOT) 35 U/L (<=37); Alanine Aminotransfer ALT/SGPT 46 U/L (<=46); Albumin, Serum 4.1 g/dL (3.4-4.8); Alkaline Phosphatase 123 U/L (40-129); Anion Gap 12 (5-15); BUN 18 mg/dL (4-19); BUN/Creat Ratio 17.8 RATIO (10-20); Calcium,Total 9.1 mg/dL (7.6-11.0); Carbon Dioxide 22.2 mmol/L (21.0-32.0); Chloride 107 mmol/L (98-108); Estimated Creatinine Clearance 71.27 ml/min (50-250); Globulin 2.8 g/dL (2.2-4.2); Glucose 118 mg/dL (70-99); Potassium 4.3 mmol/L (3.3-5.1)
[2025-04-01 07:07] LABS: Pro- Brain NATRIURETIC PEPTIDE < 36 pg/mL (<=900)
--- NOTE | 2025-04-01 07:30 | EX.ED.GENINJ ---
HPI History of Present Illness Chief Complaint: Trauma Narrative Narrative: Patient was seen and examined after presenting to ED for fall down unknown number of stairs but patient apparently got up in the middle of the night to go use the bathroom on the second floor where his bedroom is and he was found at the bottom of the stairs after his found and heard him fall she states his head and neck were pressed up against the wall and that he was not really responding to her for an unknown duration of time because she could not quite quantify it states that he has no recollection of the fall she does report that he is on many psych medications for anxiety and depression and they recently had to discontinue 1 because he started having leaning while ambulating. Patient is not on anticoagulation. She states that he does have a baseline shaking of his legs and hands now. Per EMS patient was unresponsive for them for a few minutes prior to him waking up and answering questions but being confused. [facility] Medical History Panic disorder Generalized anxiety disorder Major depressive disorder, recurrent severe without psychotic features Kidney stone Arthritis Home Medications Medication Instructions Recorded Last Taken Type multivitamin (Multiple Vitamins 1 ea PO DAILY 01/12/18 Unknown History tablet) mirtazapine 45 mg tablet 45 mg PO QHS 05/04/22 Unknown History turmeric 100 mg-betty 150 1 cap PO DAILY 05/04/22 Unknown History mg-olive 50 mg-oreg 150 mg-capryl capsule venlafaxine 150 mg 300 mg PO DAILY 05/04/22 Unknown History capsule,extended release 24 hr atorvastatin 10 mg tablet 10 mg PO DAILY 04/01/25 Unknown History bupropion HCl 150 mg 24 hr tablet, 300 mg PO DAILY 04/01/25 Unknown History extended release tamsulosin 0.4 mg capsule 0.4 mg PO QHS 04/01/25 Unknown History Allergy/AdvReac Type Severity Reaction Status Date / Time No Known Allergies Allergy Verified 05/04/22 10:34 Surgical History Hx of arthroscopy of left knee Hx of arthroscopy of right knee Social History household members: spouse Smoking Status: Never smoker substance use type: does not use ROS ROS ED ROS Narrative Acute care caveat applies EXAM Physical Exam Narrative Exam Narrative: Primary Survey: Airway: Intact Breathing: Bilateral breath sounds Circulation: +2 Radials and DPs bilaterally Disability: Intact MSPs bilateral upper and lower extremities GCS 15 Exposure: Patient was exposed Secondary Survey: Neurologic: Alert and oriented x 4 but no recollection of fall. Moves all extremities but has shaking of his feet and his hands Head: Hematoma overlying his left eyebrow with a laceration to it Eyes: Pupils 2 mm equal round reactive to light, EOMI Ears: No hemotympanum Nose: No crepitus, no nasal septal hematoma Mouth/Throat: No blood in mouth, no dental malocclusion Neck: No cervical midline tenderness but was tender in the paraspinal musculature, no bony step-offs, trachea midline and without crepitus Chest: No obvious sign of trauma, no flail chest Abdomen: Soft, nontender nondistended Pelvis/Genitourinary: Pelvis is stable. Left Lower Extremity: Full active range of motion no visible trauma Right Lower Extremity: Full active range of motion no visible trauma Left Upper Extremity: Tender overlying shoulder. Contusion over left shoulder Right Upper Extremity: Nontender. No obvious signs of trauma. Full range of motion Back: No thoracolumbar spine tenderness. No bony step-off deformities Const Vital Signs: 04/01/25 06:19 04/01/25 06:36 04/01/25 07:03 Temperature 98.1 F Temperature Source Oral Pulse Rate 87 89 Respiratory Rate 29 H 23 H Respiratory Effort Normal Non-Labored Respiratory Depth Normal Respiratory Pattern Tachypnea Blood Pressure 127/82 H 151/94 H Blood Pressure Mean 97 113 Pulse Ox 100 100 Oxygen Delivery Method Room Air Room Air 04/01/25 08:05 Temperature Temperature Source Pulse Rate 87 Respiratory Rate 22 H Respiratory Effort Respiratory Depth Respiratory Pattern Blood Pressure 141/86 H Blood Pressure Mean 104 Pulse Ox 99 Oxygen Delivery Method Room Air MDM MDM MDM Narrative Medical decision making narrative: Patient assessed per ATLS protocol. Please see Trauma Flow Sheet for further details. Unknown reason for the fall will evaluate for medical causes as well as for any traumatic injuries Interventions: Procedure: Laceration Repair Confirmed Correct: Patient, procedure, side, site Consent: Patient, Verbal Description Length: 1 cm Location: Left eyebrow Shape: Irregular Depth: Superficial Anesthesia: 3 mL Preparation: Sterile field Irrigation: Hibiclens cleaning solution Skin Closure: 3 superficial sutures 5-0 Non-Absorbable Technique: Simple interrupted Complexity: Simple Post-procedure Examination: Normal circulation, motor, sensation. Bleeding Controlled. Procedure Complications: None Patient Tolerated: Well Total Time: 5 minutes Tetanus: Updated in department Antibiotics: No indication Labs Reviewed: No leukocytosis leukopenia anemia coagulopathy electrolyte abnormality renal insufficiency lactic acid was elevated at 2.4 alcohol level was negative no transaminitis troponin was 13 proBNP was less than 36. Delta troponin is pending Imaging Reviewed: Personally reviewed and interpreted by me: Chest X-ray: No pneumothorax, no obvious deformities or pathology appreciated Shoulder x-ray I do not see any dislocation or obvious fracture official interpretation is agreeable CT head I did not see any acute pathology official interpretation is also agreeable CT angio of the chest I did not see any obvious pneumothoraces rib fractures or large PE official interpretation is without acute pathology CT cervical spine without acute pathology CT abdomen and pelvis normal I see a fairly moderate stool burden throughout I do not see any obvious injury also see some sort of penile implant official interpretation showing bilateral kidney stones with the largest being 7 mm in the lower pole of the right kidney no hydronephrosis but no acute pathology EKG: Normal sinus rhythm rate of 86 there is some motion artifact there is no ST segment elevation no SD interval or QT prolongation significance no evidence of Brugada syndrome or WPW or dagger like Q waves indicative of LVH. EKG interpretation is noted and agreed to in the EMR. The interpretation of this patient's EKG contributed directly to the care and management of this patient. [id number]: I discussed with hospitalist Dr. Syed who is agreeable to admission Previous Documentation Reviewed: None available or applicable at this time. This note was made utilizing voice recognition software. All attempts were made to correct spelling or other errors prior to note completion, however due to the fast-paced nature of emergency medicine some errors may still be present. Lab Data Labs: Laboratory Results - last 24 hr 04/01/25 04/01/25 06:20 06:30 WBC 5.7 RBC 4.84 Hgb 14.3 Hct 43.6 MCV 90.1 MCH 29.5 MCHC 32.8 RDW Std Deviation 42.5 RDW Coeff of Rishi 12.9 Plt Count 250 MPV 9.1 Immature Gran % (Auto) 1.200 H Neut % (Auto) 63.1 Lymph % (Auto) 21.6 Graves % (Auto) 10.9 H Eos % (Auto) 2.1 Baso % (Auto) 1.1 H Absolute Neuts (auto) 3.6 Absolute Lymphs (auto) 1.23 Nucleated RBC % 0 PT 13.4 INR 1.0 APTT 24.5 Sodium 141 Potassium 4.3 Chloride 107 Carbon Dioxide 22.2 Anion Gap 12 BUN 18 Creatinine 1.01 Estim Creat Clear Calc 71.27 Est GFR (MDRD) Non-Af 81 BUN/Creatinine Ratio 17.8 Glucose 118 H Lactic Acid 2.4 H* Calcium 9.1 Total Bilirubin 0.22 AST 35 ALT 46 Alkaline Phosphatase 123 Troponin T High Sens 13 NT pro BNP II < 36 Total Protein 6.9 Albumin 4.1 Globulin 2.8 Albumin/Globulin Ratio 1.5 Urine Color Yellow Urine Clarity Clear Urine pH 6.0 Ur Specific [place] 1.025 Urine Protein 15 H Urine Glucose (UA) Normal Urine Ketones Negative Urine Occult Blood 10 H Urine Nitrite Negative Urine Bilirubin Negative Urine Urobilinogen Normal Ur Leukocyte Esterase Negative Urine RBC 0 SEEN Urine WBC 0-5 SEEN Ur Squamous Epith Cells 0 SEEN Urine Bacteria 0 SEEN Urine Mucus 0 SEEN Ethyl Alcohol < 10.1 Radiography Diagnostic Testing: Clinical Impression(s) from Imaging Studies Chest X-Ray 04/01/25 06:24 IMPRESSION: No acute cardiopulmonary abnormalities. Reading Location: [facility] Abdomen/Pelvis CT 04/01/25 06:35 IMPRESSION: No acute abdominopelvic injuries. Bilateral kidney stones with the largest measures 7 mm at the lower pole of the right kidney. No hydronephrosis Reading Location: [facility] Brain CT 04/01/25 06:35 IMPRESSION: No acute intracranial abnormalities. No acute injury to the cervical spine. Reading Location: [facility] Cervical Spine CT 04/01/25 06:35 IMPRESSION: No acute intracranial abnormalities. No acute injury to the cervical spine. Reading Location: [facility] Chest CTA 04/01/25 06:35 IMPRESSION: No acute cardiopulmonary abnormalities. Reading Location: [facility] Shoulder X-Ray 04/01/25 06:54 IMPRESSION: No acute osseous abnormalities. Reading Location: [facility] Discharge Plan Triage Chief Complaint: Trauma ED Provider: Akhil Hui Dx/Rx/DC Orders Clinical Impression: Syncope, Fall down stairs, Loss of consciousness, Amnesia, Laceration of eyebrow, left Prescriptions: No Action multivitamin [Multiple Vitamins] 1 EACH tablet 1 ea PO DAILY venlafaxine 150 mg capsule,extended release 24hr 300 mg PO DAILY Patient Comments: TAKE 2 CAPSULES BY MOUTH DAILY mirtazapine 45 mg tablet 45 mg PO QHS Patient Comments: TAKE 1 TABLET BY MOUTH AT BEDTIME amfupggz-swlz-ccjsk-oreg-capry 100 mg-150 mg- 50 mg-150 mg Capsule 1 cap PO DAILY atorvastatin 10 mg tablet 10 mg PO DAILY tamsulosin 0.4 mg capsule 0.4 mg PO QHS bupropion HCl 150 mg tablet extended release 24 hr 300 mg PO DAILY Primary Care Provider: Yrn Macedo Referrals: Yrn Macedo MD [Primary Care Provider, Family Practice] Print Language: Slovenian
[2025-04-01] MEDS: Lidocaine 1% (20 ml mdv) 20 ML Vial INFILT (07:44)
[2025-04-01 08:00] VITALS: BP 141/86; PULSE 87; RESP 22; TEMP 36.8; O2SAT 99
--- NOTE | 2025-04-01 08:03 | HP.PCM.HOS_ITS ---
HPI - General General Date of Admission: 04/01/25 Date of Service: 04/01/25 Chief Complaint: mechanical fall HPI Narrative CRISSY SALGADO, is a 69 M with a PMH as outlined who presents via the ED on 04/01/2025 with a complaitn of mechanical fall. He got up in the middle of the night to go to the bathroom. HE was found at the bottom of the stairs and his said she heard him fall. When his found him, his head and neck were pressed up against the wall and was not very responsive to his . Patient could not remember what happened.Per his , he was on several psych meds for anxiety and depression and said the meds had recently been discontinued due to patient being unstable on his feet and leaning whilst ambulating. Patient was not on any anticoagulation and said he had been noted to be having some tremors of his extremities for several months now. Review of systems was otherwise negative. Vitals in the ED at time of review were BP of 141/86, IA of 87, RR of 22 and oxygen sats of 99% on room air. CBC showed wbc of 5.7, Hb of 14.3 and platelets of 250. INR was 1. Chemistry showed sodium of 141 potassium of 4.3 and bicarb of 22. Creatinine was 1.01. Lactic acid was 2.4 and total bilirubin was 0.22. Initial troponin was 13 and delta troponin was pending. Urinalysis showed no evidence of UTI EKG showed no acute ST changes and showed normal sinus rhythm. Serum alcohol level was less than 10. Urine tox was not done. Chest x-ray showed no acute cardiopulmonary pathology and CT of the abdomen and pelvis showed no acute abdominopelvic injuries with bilateral kidney stones with largest measuring 7 mm at the lower pole of the right kidney. CT brain showed no acute intracranial abnormalities and no acute injury to the cervical spine. Cervical spine CT showed no acute intracranial abnormalities and no acute injury to the cervical spine, and showed degenerative changes predominantly at C4-C5 where there is disc space narrowing, vertebral hypertrophy and severe bilateral foramina stenosis and moderate canal stensosis and left C5-C6 facet moint arthropathy with corresponding seere foramina stenosis. CTA chest showed no acute cardiopulmonary pathology and shoulder xray was also unremarkable. HE is being admitted to be managed for syncope and mechanical fall. FOR[facility]LY [facility] Medical History Panic disorder Generalized anxiety disorder Major depressive disorder, recurrent severe without psychotic features Kidney stone Arthritis Home Medications Medication Instructions Recorded Last Taken Type multivitamin (Multiple Vitamins 1 ea PO DAILY 01/12/18 Unknown History tablet) mirtazapine 45 mg tablet 45 mg PO QHS 05/04/22 Unknow n History turmeric 100 mg-betty 150 1 cap PO DAILY 05/04/22 Unk nown History mg-olive 50 mg-oreg 150 mg-capryl capsule venlafaxine 150 mg 300 mg PO DAILY 05/04/22 Unk nown History capsule,extended release 24 hr atorvastatin 10 mg tablet 10 mg PO DAILY 04/01/25 Unkn own History bupropion HCl 150 mg 24 hr tablet, 300 mg PO DAILY 02/15 Unknown History extended release tamsulosin 0.4 mg capsule 0.4 mg PO QHS 04/01/25 Unkno wn History Allergy/AdvReac Type Severity Reaction Status Date / Time No Known Allergies Allergy Verified 05/04/22 10:34 Surgical History Hx of arthroscopy of left knee Hx of arthroscopy of right knee Social History household members: spouse Smoking Status: Never smoker substance use type: does not use ROS Constitutional Constitutional: Reports fatigue, malaise and weakness; Denies anorexia, chills or fever(s) Eyes Eyes: Denies change in vision ENT HEENT: Denies dysphagia, headache(s) or sore throat Cardiovascular Cardiovascular: Denies dyspnea on exertion or syncope Respiratory/Chest Respiratory/Chest: Denies cough, dyspnea, shortness of breath at rest or shortness of breath with exertion Genitourinary Genitourinary: Denies burning urination or dysuria Musculoskeletal Musculoskeletal: Denies back pain Neurologic Neurologic: Reports confusion; Denies dizziness, focal weakness, headache(s), numbness, seizures or syncope Psychiatric Psychiatric: Denies anxiety or depression Vital Signs Vital Signs Vital Signs: 04/01/25 06:19 04/01/25 06:36 04/01/25 07:03 Temperature 98.1 F Temperature Source Oral Pulse Rate 87 89 Respiratory Rate 29 H 23 H Respiratory Effort Normal Non-Labored Respiratory Depth Normal Respiratory Pattern Tachypnea Blood Pressure 127/82 H 151/94 H Blood Pressure Mean 97 113 Pulse Ox 100 100 Oxygen Delivery Method Room Air Room Air Weight Weight: 166 lb 10.711 oz Body Mass Index (BMI) 23.9 Physical Exam Const alert General Appearance: cooperative Orientation / Consciousness: lethargic HEENT normocephalic, hearing grossly normal bilaterally and moist oral mucous membranes HEENT Narrative: has a large left periorbital hematoma Eyes EOMs intact bilaterally and conjunctivae normal Neck supple and no JVD Resp normal respiratory effort, no use of accessory muscles and clear to auscultation bilaterally Cardio regular rate, regular rhythm, S1 normal heart sound, S2 normal heart sound and no murmurs GI normal to inspection, nondistended, normoactive bowel sounds, soft to palpation, non-tender and non-distended Extremity normal to inspection, full ROM and no clubbing, cyanosis or edema Neuro oriented x3 and moves all extremities Sensorium / Orientation: awake and alert Psych Psych Narrative: lethargic, flat affect Results Lab / Micro Data 04/01/25 06:20 04/01/25 06:20 Labs: Laboratory Results - last 24 hr 04/01/25 06:20: WBC 5.7, RBC 4.84, Hgb 14.3, Hct 43.6, MCV 90.1, MCH 29.5, MCHC 32.8, RDW Std Deviation 42.5, RDW Coeff of Rishi 12.9, Plt Count 250, MPV 9.1, I mmature Gran % (Auto) 1.200 H, Neut % (Auto) 63.1, Lymph % (Auto) 21.6, Cand[place] % (Auto) 10.9 H, Eos % (Auto) 2.1, Baso % (Auto) 1.1 H, Absolute Neuts (auto) 3.6, Absolute Lymphs (auto) 1.23, Nucleated RBC % 0, PT 13.4, INR 1.0, APTT 24.5, Sodium 141, Potassium 4.3, Chloride 107, Carbon Dioxide 22.2, Anion Gap 12, BUN 18, Creatinine 1.01, Estim Creat Clear Calc 71.27, Est GFR (MDRD) Non-Af 81, BUN/Creatinine Ratio 17.8, Glucose 118 H, Lactic Acid 2.4 H*, Calcium 9.1, Total Bilirubin 0.22, AST 35, ALT 46, Alkaline Phosphatase 123, Troponin T High Sens 13, NT pro BNP II < 36, Total Protein 6.9, Albumin 4.1, Globulin 2.8, Albumin/Globulin Ratio 1.5, Ethyl Alcohol < 10.1 04/01/25 06:30: Urine Color Yellow, Urine Clarity Clear, Urine pH 6.0, Ur Specific Winslow 1.025, Urine Protein 15 H, Urine Glucose (UA) Normal, Urine Ketones Negative, Urine Occult Blood 10 H, Urine Nitrite Negative, Urine Bilirubin Negative, Urine Urobilinogen Normal, Ur Leukocyte Esterase Negative, Urine RBC 0 SEEN, Urine WBC 0-5 SEEN, Ur Squamous Epith Cells 0 SEEN, Urine Bacteria 0 SEEN, Urine Mucus 0 SEEN Imaging Radiology Impression Chest X-Ray 04/01/25 06:24 IMPRESSION: No acute cardiopulmonary abnormalities. Reading Location: [id number] Abdomen/Pelvis CT 04/01/25 06:35 IMPRESSION: No acute abdominopelvic injuries. Bilateral kidney stones with the largest measures 7 mm at the lower pole of the right kidney. No hydronephrosis Reading Location: [id number] Brain CT 04/01/25 06:35 IMPRESSION: No acute intracranial abnormalities. No acute injury to the cervical spine. Reading Location: [id number] Cervical Spine CT 04/01/25 06:35 IMPRESSION: No acute intracranial abnormalities. No acute injury to the cervical spine. Reading Location: [id number] Chest CTA 04/01/25 06:35 IMPRESSION: No acute cardiopulmonary abnormalities. Reading Location: [id number] Shoulder X-Ray 04/01/25 06:54 IMPRESSION: No acute osseous abnormalities. Reading Location: [id number] Assessment & Plan Assessment/Plan (1) Laceration of eyebrow, left: (2) Loss of consciousness: (3) Syncope: PLAN: Plan #Syncope with resultant mechanical fall * Admit to PCU under observation * Patient does not member what happened but according to his he got up to go to the bathroom and the next thing she heard was a loud crash and found patient at the bottom of the stairs. Patient was unresponsive but subsequently came around. * CT brain showed no acute intracranial pathology. CTA head and neck showed no hemodynamically significant stenosis * he sustained a left eyebrow laceration with resultant periorbital hematoma. Eyebrow laceration was sutured. * Abdominal pelvic CT and chest x-ray as well as cervical spine CT and shoulder x-ray did not show any acute pathology. * will get MRI of the brain and get EEG also * consult neurology * check 2D echo as well. * fall precautions * #Hyperlipidemia: on high intensity statin #Depression: on mirtazapine and venlafaxine #BPH: on flomax DVT prophylaxis: SCDs. No anticoagulation o/a of periorbital hematoma Code status: full code * Patient's counseled extensively about different types of CODE STATUS including full code, DNR CCA and DNR CCA. * She elects for patient to be full code and said he had always wanted everything done for him. * Total krfl-co-vipg time 16 minutes. Charges/Coding Visit Charges Inpatient E&M: 46484 Init Hosp L2 Procedures Hospitalists Procedures: 89176 Advncd Care Plan 30 Min
[2025-04-01 08:05] VITALS: BP 141/86; PULSE 87; RESP 22; O2SAT 99
--- OUTSIDE RECORDS SUMMARY | 2025-04-01 08:28 | XMS RPT_ITS | CCD ---
Author Organization [facility] Care Team Providers Care Body Art Technician Name Role Phone Yrn Holland MD Primary Care Provider ROSALVA PARADA Attending Unavailable ROSALVA PARADA Referring Unavailable URIEL CHANG Admitting Unavailable ROSALVA PARADA Consulting Unavailable PHYSICIANS, [facility] Consulting Unav Yrn Loyd MD Primary Care Provider Yrn Holland MD Primary Care Provider Chriss OUTPATIENT PSYCHIATRIST.Ned HOOVER Unavailable Felecia Quiroz PA-C Unavailable Yrn Holland MD Primary Care Provider [phone] Chriss OUTPATIENT PSYCHIATRIST.Ned HOOVER Unavailable Felecia Quiroz PA-C Unavailable [phone] Mahesh Najera Attending Unavailable Yrn Holland Primary [...] daily at bedtime. Per Psych, Dr. Barone kb-oib-bcxnf acid-lutein (CENTRUM SILVER) 400-250 mcg chew (20 sources) Start: 08-02-2020 take 1 tablet by mouth once daily gq-yzj-hbqbk acid-lutein (CENTRUM SILVER) 400-250 mcg chew Take 1 tablet by mouth once daily. 08/02/2020 Active Start: 08-02-2020 take 1 tablet by roberto th once daily ns-avy-wrgpz acid-lutein (CENTRUM SILVER) 400-250 mcg chew Take [...] above: Take 1/2 a tab by mo [facility] twice a day for 2 weeks than [...] on above: Take 1 capsule by mo [facility] twice daily. escitalopram 10 mg oral tablet [...] daily. 0 03/27/2022 Discontinued glucosamine/msm/ chondroitin A (BIPDZBLLUOP-ODRGUS-JEK ORAL) Take by mouth twice daily. 0 Active Comment on above: Take by mouth twice daily. lactobacillus acidophilus 460 mg oral capsule (4 sources) Start: 05-19-20 End: 02-03-20 take 1 capsule by mouth once daily Lactobacillus acidophilus (FLORAJEN ACIDOPHILUS) 20 billion cell cap Take 1 capsule by mouth once daily. 30 capsule 0 05/19/2022 02/02/2023 Discontinued Comment on above: Take 1 capsule by [facility] once daily. OLANZapine 5 mg oral tablet [...] Comment on above: Take 1 tablet by [facility] daily at bedtime. Per Psych, Dr. Barone Take 2 tablets by [facility] daily at bedtime. Per Psych, [...] Comment on above: Take 2 tablets by [facility] daily at bedtime. 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 Barone outside of [facility]. Dr. Barone prescribes pt medication and it [...] Fully Assessed Reason for Visit: Patient Question [1067] Prescriptions as of 03/26/2025 - atorvastatin (LIPITOR) [...] by mouth. Taking 1000 mg daily - oz-pil-ijuji acid-lutein (CENTRUM SILVER) 400-250 mcg chew Take [...] Status:Closed by DAPHNIE BEST on 03/26/25 Normal [facility] Abdomen/Pelvis without Conto n 03-21-2025 Abdomen/Pelvis without Cont [facility] Imaging Services [address] [place] [address] [id number] Abdomen/Pelvis without Cont MR#: [id number] Acct: [id number] Name: CRISSY RICHTER Rep #: [id number] : 1955 M 69 From: Trevor Burleson MD PCP: Dr. Yrn Holland MD Status: REG CLI Study: Abdomen/Pelvis without Cont Date of Exam: 02/22 02/15 Exam# [id number] Ordering Dr: Mahesh Najera MD PROCEDURE: CT [...] either side. No perinephric edema. Reading Location: [id number] CC: Dr. Yrn Holland MD; Dr. Mahesh Najrea MD Welding Machine Feeder: Signed [facility] 02-23-2025 [facility] Telephone (FAMPaymetricWS) CRISSY RICHTER ([id number]) 1955 M Date Time Provider Department 02/23/25 YRN HOLLAND During your visit today, we recorded the following information about you: Rupa Sapp RN 02/23/2025 9:26 AM Signed Patient's spouse [...] by mouth. Taking 1000 mg daily - xx-qhd-koqqv acid-lutein (CENTRUM SILVER) 400-250 mcg chew Take [...] Encounter Status:Closed by RUPA SAPP on 02/23/25 [facility] CNOVon 02-05-2025 CNOV Office Visit (FAMPWS ) ROBERCRISSY ([id number]) 1955 M Date Time Provider Department 02/05/25 1:40 PM NED MUNOZ During your visit today, we recorded the following information about you: Pulse Blood pressure Weight 90/minute 138/87 71 kg Ned Munoz APRN.LIDDING MACHINE OPERATOR 02/05/2025 2:03 PM Signed Chief Complaint Patient [...] Take by mouth. Taking 1000 mg daily tq-sui-fzgkk acid-lutein (CENTRUM SILVER) 400-250 mcg chew Take [...] mg/dL Negative (more content not included)... Normal [facility] UA DIP, URINE (POC)on 2024 BILIRUBIN UA (POCT) Negative Negative [facility] CLARITY UA (POCT) [facility] COLOR UA (POCT) Yellow [facility] GLUCOSE UA (POCT) Negative Negative mg/dL [facility] Hemoglobin Ql (U) Negative Negative [facility] KETONE UA (POCT) Negative Negative mg/dL [facility] LEUKOCYTES UA (POCT) [facility] NITRITE UA (POCT) Negative Negative [facility] PH UA (POCT) 6.0 4.5 - 8.0 [facility] Protein Ql (U) Negative Negative mg/dL [facility] SPECIFIC GRAVITY UA (POCT) >=1.030 1.005 - 1.030 [facility] UROBILINOGEN UA (POCT) 0.2 Elle l E.U./dL [facility] Location:[facility], [address] [place] [address], [place], [place], [id number] [place] [address] POINT OF CARE [facility] Geronimo 12-21-2024 [facility] CRISSY RICHTER ([id number]) 1955 M Date Time Provider Department 12/21/24 FELECIA QUIROZ [facility] During your visit today, we recorded the [...] ER. states that they are currently in [place] and are flying home today. Patient did not want to go to an ER in [place]. Advised again that if patient continues to [...] by mouth. Taking 1000 mg daily - qr-vvc-hqags acid-lutein (CENTRUM SILVER) 400-250 mcg chew Take [...] Status:Closed by DAPHNIE BEST on 12/25/24 Normal [facility] US CAROTID ARTERIES SHARYN VAS LABon 12-20-2024 US CAROTID ARTERIES SHARYN VAS LAB Non-Invasive Vascular Laboratory [facility] Carotid Duplex Bilateral/Complete Date of [...] physician: Nicholas Caldwell MD, RPVI Final CC [employer] [facility] : [id number] See Link below for Image Normal [facility] 11-23-2024 [facility] Telephone (FAMWS) CRISSY RICHTER ([id number]) 1955 M Date Time Provider Department 11/23/24 [facility]AND [facility] During your visit today, we recorded the [...] by mouth. Taking 1000 mg daily - qp-qdq-ccjgu acid-lutein (CENTRUM SILVER) 400-250 mcg chew Take [...] Encounter Status:Closed by DAPHNIE BEST on 01/19/25 [facility] Geronimo 11-21-2024 [facility] Tele[facility] (FAMPWS) CRISSY RICHTER ([id number]) 1955 M Date Time Provider Department 11/21/24 [...] by mouth. Taking 1000 mg daily - zb-gpp-hoaex acid-lutein (CENTRUM SILVER) 400-250 mcg chew Take [...] Encounter Status:Closed by DAPHNIE BEST on 11/21/[address] [facility] [address] BRAIN WO IVCONon 11-22-19 CT BRAIN WO IVCON * * *Final Report* * * DATE OF EXAM: Nov 21 2024 8:19AM [facility] 0504 - CT BRAIN WO IVCON [...] likely reflecting the sequelae of microvascular ischemia. Welding Machine Feeder[facility] Transcribe Date/Time: Nov 21 2024 8:34A Dictated by : ROSEANNA BEASLEY MD This examination was interpreted and the report reviewed and electronically signed by: ROSEANNA BEASLEY MD on Nov 21 2024 8:35AM EST [id number] Normal [facility] CT Head WO contraston 2024 IMPRESSION: No acute intracranial abnormality. 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 Welding Machine Feeder: [facility] Transcribe Date/Time: Nov 21 2024 8:34A Dictated by : ROSEANNA BEASLEY MD This examination was interpreted and the report reviewed and electronically signed by: ROSEANNA BEASLEY MD on Nov 21 2024 8:35AM EST DIVISION OF RADIOLOGY * * *Final Report* * * DATE OF EXAM: Nov 21 2024 8:19AM [facility] 0504 - CT BRAIN WO IVCON [...] DIVISION OF RADIOLOGY Provider, [facility] - 11/21/2024 * * *Final Report* * * DATE OF EXAM: Nov 21 2024 8:19AM [facility] 0504 - CT BRAIN WO IVCON [...] likely reflecting the sequelae of microvascular ischemia. Welding Machine Feeder: [facility] Transcribe Date/Time: Nov 21 2024 8:34A Dictated by : ROSEANNA BEASLEY MD This examination was interpreted and the report reviewed and electronically signed by: ROSEANNA BEASLEY MD on Nov 21 2024 8:35AM EST [facility] Radiology Study observation (narrative) [facility] CT Head WO contrastOrdered B y: Ccf Provider on 11-21-2024 [facility] Comprehensive metabolic 2000 panelon 11-21-2024 Albumin [Mass/Vol] 4.3 g/dL 3.9 - 4.9 g/dL [facility] ALP [Catalytic activity/Vol] 126 U/L High 38 - 113 U/L [facility] ALT [Catalytic activity/Vol] 41 U/L 10 - 54 U/L [facility] Anion gap [Moles/Vol] 11 mmol/L 8 - 15 mmol/L [facility] AST [Catalytic activity/Vol] 24 U/L 14 - 40 U/L [facility] Bilirubin [Mass/Vol] 0.2 mg/dL 0.2 - 1 .3 mg/dL [facility] Calcium [Mass/Vol] 9.6 mg/dL 8.5 - 10. 2 mg/dL [facility] Chloride [Moles/Vol] 105 mmol/L 98 - 10 7 mmol/L [facility] CO2 [Moles/Vol] 24 mmol/L 22 - 30 mmol/L [facility] Creatinine [Mass/Vol] 1.08 mg/dL 0.73 - 1.22 mg/dL [facility] GFR/1.73 sq M.predicted among non-blacks MDRD (S/P/Bld) [Vol rate/Area] 74 mL/min/{1.73_m2} - PINF [facility] Comment on above: Estimated Glomerular Filtration Rate [...] 103 mg/dL High 74 - 99 mg/dL [facility] Comment on above: The [place] Diab[employer] s Association (ADA) provides guidance for [...] Standards of Medical Care in Diabetes 2016, [place] [employer]. Diabetes Care. 2016.39(Suppl 1). Interpretation and review of laboratory results Abnormal [facility] Potassium [Moles/Vol] 4.7 mmol/L 3.7 - 5.1 mmol/L [facility] Protein [Mass/Vol] 7.2 g/dL 6.3 - 8.0 g/dL [facility] Sodium [Moles/Vol] 140 mmol/L 136 - 144 mmol/L [facility] Urea nitrogen [Mass/Vol] 21 mg/dL 9 - 24 mg/dL [facility] THYROID STIMULATING HORMONEo n 11-21-2024 TSH Qn 2.51 m[IU]/L [facility] TSH Qnon 11-21-2024 Interpretation and review of laboratory results Normal [facility] CBC W Auto Differential pane l (Bld)on 11-20-2024 Basophils (Bld) [#/Vol] 0.05 10*3/uL [facility] Basophils/100 WBC (Bld) 0.8 % [facility] Differential cell count method Nom (Bld) Auto [facility] Eosinophils (Bld) [#/Vol] 0.1 10*3/uL [facility] Eosinophils/100 WBC (Bld) 1.6 % [facility] Erythrocyte distribution width (RBC) [Ratio] 13.6 % 11.5 - 15.0 % [facility] Hematocrit (Bld) [Volume fraction] 43.4 % 39.0 - 51.0 % [facility] Hemoglobin (Bld) [Mass/Vol] 14.3 g/dL 13.0 - 17.0 g/dL [facility] Immature granulocytes (Bld) [#/Vol] [facility] Immature granulocytes/100 WBC (Bld) 0.3 % [facility] Lymphocytes (Bld) [#/Vol] 1.07 10*3/uL [facility] Lymphocytes/100 WBC (Bld) 17.6 % [facility] MCH (RBC) [Entitic mass] 29.5 pg 26.0 - 34.0 pg [facility] MCHC (RBC) [Mass/Vol] 32.9 g/dL 30.5 - 36.0 g/dL [facility] MCV (RBC) [Entitic vol] 89.5 fL 80.0 - 100.0 fL [facility] Monocytes (Bld) [#/Vol] 0.61 10*3/uL [facility] Monocytes/100 WBC (Bld) 10 % [facility] Neutrophils (Bld) [#/Vol] 4.24 10*3/uL [facility] Neutrophils/100 WBC (Bld) 69.7 % [facility] Nucleated RBC (Bld) [#/Vol] [facility] Nucleated RBC/100 WBC (Bld) [Ratio] 0 % /100 WBC [facility] Platelet mean volume (Bld) [Entitic vol] 9.8 fL 9.0 - 12.7 fL [facility] Platelets (Bld) [#/Vol] 288 10*3/uL [facility] RBC (Bld) [#/Vol] 4.85 10*6/uL 4.20 - 6.0 0 m/uL [facility] WBC (Bld) [#/Vol] 6.09 10*3/uL [facility] Basophils (Bld) [#/Vol] 0.05 10*3/uL Normal <0.11 [facility] Comment on above: Order Comment: Speci men Type: URINE SPECIMEN Ordering Facility: [facility] Address: [address] [place] [address] Performed By: #### 2 4356-8 #### [facility] CLIA [id number] [address] [place] [address] [place] Basophils/100 WBC (Bld) 0.8 % Normal [facility] Comment on above: Order Comment: Speci men Type: URINE SPECIMEN Ordering Facility: [facility] Address: [address] [place] [address] Performed By: #### 2 4356-8 #### [facility] CLIA [id number] [address] [place] [address] [place] Differential cell count method Nom (Bld) Auto Normal [facility] Comment on above: Order Comment: Speci men Type: URINE SPECIMEN Ordering Facility: [facility] Address: [address] [place] [address] Performed By: #### 2 4356-8 #### [facility] CLIA [id number] [address] [place] [address] [place] Eosinophils (Bld) [#/Vol] 0.10 10*3/uL Normal <0.46 [facility] Comment on above: Order Comment: Speci men Type: URINE SPECIMEN Ordering Facility: [facility] Address: [address] [place] [address] Performed By: #### 2 4356-8 #### [facility] CLIA [id number] [address] [place] [address] [place] Eosinophils/100 WBC (Bld) 1.6 % Normal [facility] Comment on above: Order Comment: Speci men Type: URINE SPECIMEN Ordering Facility: [facility] Address: [address] [place] [address] Performed By: #### 2 4356-8 #### [facility] CLIA [id number] [address] [place] [address] [place] Erythrocyte distribution width (RBC) [Ratio] 13.6 % Normal 11.5-15.0 [facility] Comment on above: Order Comment: Speci men Type: URINE SPECIMEN Ordering Facility: [facility] Address: [address] [place] [address] Performed By: #### 2 4356-8 #### [facility] CLIA [id number] [address] [place] [address] [place] Hematocrit (Bld) [Volume fraction] 43.4 % Normal 39.0-51.0 [facility] Comment on above: Order Comment: Speci men Type: URINE SPECIMEN Ordering Facility: [facility] Address: [address] [place] [address] Performed By: #### 2 4356-8 #### [facility] CLIA [id number] [address] [place] [address] [place] Hemoglobin (Bld) [Mass/Vol] 14.3 g/dL Normal 13.0-17.0 [facility] Comment on above: Order Comment: Speci men Type: URINE SPECIMEN Ordering Facility: [facility] Address: [address] [place] [address] Performed By: #### 2 4356-8 #### [facility] CLIA [id number] [address] [place] [address] [place] Immature granulocytes (Bld) [#/Vol] 10*3/uL Normal <0.10 [facility] Comment on above: Order Comment: Speci men Type: URINE SPECIMEN Ordering Facility: [facility] Address: [address] [place] [address] Performed By: #### 2 4356-8 #### [facility] CLIA [id number] [address] [place] [address] [place] Immature granulocytes/100 WBC (Bld) 0.3 % Normal [facility] Comment on above: Order Comment: Speci men Type: URINE SPECIMEN Ordering Facility: [facility] Address: [address] [place] [address] Performed By: #### 2 4356-8 #### [facility] CLIA [id number] [address] [place] [address] [place] Lymphocytes (Bld) [#/Vol] 1.07 10*3/uL Normal 1.00-4.00 [facility] Comment on above: Order Comment: Speci men Type: URINE SPECIMEN Ordering Facility: [facility] Address: [address] [place] [address] Performed By: #### 2 4356-8 #### [facility] CLIA [id number] [address] [place] [address] [place] Lymphocytes/100 WBC (Bld) 17.6 % Normal [facility] Comment on above: Order Comment: Speci men Type: URINE SPECIMEN Ordering Facility: [facility] Address: [address] [place] [address] Performed By: #### 2 4356-8 #### [facility] CLIA [id number] [address] [place] [address] [place] MCH (RBC) [Entitic mass] 29.5 pg Normal 26.0-34.0 [facility] Comment on above: Order Comment: Speci men Type: URINE SPECIMEN Ordering Facility: [facility] Address: [address] [place] [address] Performed By: #### 2 4356-8 #### [facility] CLIA [id number] [address] [place] [address] [place] MCHC (RBC) [Mass/Vol] 32.9 g/dL Normal 30.5-36.0 [facility] Comment on above: Order Comment: Speci men Type: URINE SPECIMEN Ordering Facility: [facility] Address: [address] [place] [address] Performed By: #### 2 4356-8 #### [facility] CLIA [id number] [address] [place] [address] [place] MCV (RBC) [Entitic vol] 89.5 fL Normal 80.0-100.0 [facility] Comment on above: Order Comment: Speci men Type: URINE SPECIMEN Ordering Facility: [facility] Address: [address] [place] [address] Performed By: #### 2 4356-8 #### [facility] CLIA [id number] [address] [place] [address] [place] Monocytes (Bld) [#/Vol] 0.61 10*3/uL Normal <0.87 [facility] Comment on above: Order Comment: Speci men Type: URINE SPECIMEN Ordering Facility: [facility] Address: [address] [place] [address] Performed By: #### 2 4356-8 #### [facility] CLIA [id number] [address] [place] [address] [place] Monocytes/100 WBC (Bld) 10.0 % Normal [facility] Comment on above: Order Comment: Speci men Type: URINE SPECIMEN Ordering Facility: [facility] Address: [address] [place] [address] Performed By: #### 2 4356-8 #### [facility] CLIA [id number] [address] [place] [address] [place] Neutrophils (Bld) [#/Vol] 4.24 10*3/uL Normal 1.45-7.50 [facility] Comment on above: Order Comment: Speci men Type: URINE SPECIMEN Ordering Facility: [facility] Address: [address] [place] [address] Performed By: #### 2 4356-8 #### [facility] CLIA [id number] [address] [place] [address] [place] Neutrophils/100 WBC (Bld) 69.7 % Normal [facility] Comment on above: Order Comment: Speci men Type: URINE SPECIMEN Ordering Facility: [facility] Address: [address] [place] [address] Performed By: #### 2 4356-8 #### [facility] CLIA [id number] [address] [place] [address] [place] Nucleated RBC (Bld) [#/Vol] 10*3/uL Normal <0.01 [facility] Comment on above: Order Comment: Speci men Type: URINE SPECIMEN Ordering Facility: [facility] Address: [address] [place] [address] Performed By: #### 2 4356-8 #### [facility] CLIA [id number] [address] [place] [address] [place] Nucleated RBC/100 WBC (Bld) [Ratio] 0.0 /100 WBC Normal [facility] Comment on above: Order Comment: Speci men Type: URINE SPECIMEN Ordering Facility: [facility] Address: [address] [place] [address] Performed By: #### 2 4356-8 #### [facility] CLIA [id number] [address] [place] [address] [place] Platelet mean volume (Bld) [Entitic vol] 9.8 fL Normal 9.0-12.7 [facility] Comment on above: Order Comment: Speci men Type: URINE SPECIMEN Ordering Facility: [facility] Address: [address] [place] [address] Performed By: #### 2 4356-8 #### [facility] CLIA [id number] [address] [place] [address] [place] Platelets (Bld) [#/Vol] 288 10*3/uL Normal 150-400 [facility] Comment on above: Order Comment: Speci men Type: URINE SPECIMEN Ordering Facility: [facility] Address: [address] [place] [address] Performed By: #### 2 4356-8 #### [facility] CLIA [id number] [address] [place] [address] [place] RBC (Bld) [#/Vol] 4.85 10*6/uL Normal 4.20-6.00 [facility] Comment on above: Order Comment: Speci men Type: URINE SPECIMEN Ordering Facility: [facility] Address: [address] [place] [address] Performed By: #### 2 4356-8 #### [facility] CLIA [id number] [address] [place], [place] [id number] [place] WBC (Bld) [#/Vol] 6.09 10*3/uL Normal 3.70-11.00 [facility] Comment on above: Order Comment: Speci men Type: URINE SPECIMEN Ordering Facility: [facility] Address: [address] [place], [place] [address] Performed By: #### 2 4356-8 #### [facility] CLIA [id number] [address] [place], [place] [id number] [place] CNOVon 11-20-2024 CNOV Office Visit (FAMPWS ) CRISSY RICHTER ([id number]) 1955 M Date Time Provider Department 11/20/24 11:00 AM [facility] During your visit today, we recorded the [...] awareness and confusion while out hiking at [facility]. During the episode, his slitter and cutter operator noted that his shoulder appeared to be [...] been drinking the same water as his slitter and cutter operator and denies any exposure to different water [...] genetic. 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 P (more content not included)... Normal [facility] 11-20-2024 [facility] (FAMPWS[facility] CRISSY RICHTER ([id number]) 1955 Date Time Provider Department 11/20/24 YRN [...] by mouth. Taking 1000 mg daily - ao-slz-hnhcw acid-lutein (CENTRUM SILVER) 400-250 mcg chew Take [...] Status:Closed by JAYLEEN MCKEON on 11/20/24 Normal [facility] Comprehensive metabolic 2000 panelon 11-20-2024 Albumin [Mass/Vol] 4.3 g/dL Normal 3.9-4.9 [facility] Comment on above: Order Comment: Speci men Type: BLOOD SPECIMENOrdering Facility: [facility] Address: [address] [place] [address] Performed By: #### 2 4323-8, 3 ####[facility] [id number] [place] [address] [place] ALP [Catalytic activity/Vol] 126 U/L High 38-113 [facility] Comment on above: Order Comment: Speci men Type: BLOOD SPECIMENOrdering Facility: [facility] Address: [address] [place] [address] Performed By: #### 2 4323-8, 3015-3 ####[facility] [id number] [place] [address] [place] ALT [Catalytic activity/Vol] 41 U/L Normal 10-54 [facility] Comment on above: Order Comment: Speci men Type: BLOOD SPECIMENOrdering Facility: [facility] Address: [address] [place] [address] Performed By: #### 2 4323-8, 3016-3 ####[facility] [id number] [address] [place] [address] [place] Anion gap [Moles/Vol] 11 mmol/L Normal 8-15 [facility] Comment on above: Order Comment: Speci men Type: BLOOD SPECIMENOrdering Facility: [facility] Address: [address] [place], [place] [address] Performed By: #### 2 4323-8, 3015-3 ####[facility] [id number] [place] [id number] [place] AST [Catalytic activity/Vol] 24 U/L Normal 14-40 [facility] Comment on above: Order Comment: Speci men Type: BLOOD SPECIMENOrdering Facility: [facility] Address: [address] [place], [place] [address] Performed By: #### 2 4323-8, 6-3 ####[facility] [id number] [place] [address] [place] Bilirubin [Mass/Vol] 0.2 mg/dL Normal 0.2-1.3 [facility] Comment on above: Order Comment: Speci men Type: BLOOD SPECIMENOrdering Facility: [facility] Address: [address] [place], [place] [address] Performed By: #### 2 4323-8, 6-3 ####[facility] [id number] [address] [address] [place] Calcium [Mass/Vol] 9.6 mg/dL Normal 8.5-10.2 [facility] Comment on above: Order Comment: Speci men Type: BLOOD SPECIMENOrdering Facility: [facility] Address: [address] [place], [place] [address] Performed By: #### 2 4323-8, 3016-3 ####[facility] [id number] [facility] [address] [address] [place] Chloride [Moles/Vol] 105 mmol/L Normal 98-107 [facility] Comment on above: Order Comment: Speci men Type: BLOOD SPECIMENOrdering Facility: [facility] Address: [address] [place] [address] Performed By: #### 2 4323-8, 3016-3 ####[facility] [id number] [address] [address] [place] CO2 [Moles/Vol] 24 mmol/L Normal 22-30 [facility] Comment on above: Order Comment: Speci men Type: BLOOD SPECIMENOrdering Facility: [facility] Address: [address] [place] [address] Performed By: #### 2 4323-8, 6-3 ####[facility] [id number] [address] [address] [place] Creatinine [Mass/Vol] 1.08 mg/dL Normal 0.73-1.22 [facility] Comment on above: Order Comment: Speci men Type: BLOOD SPECIMENOrdering Facility: [facility] Address: [address] [place] [address] Performed By: #### 2 4323-8, 6-3 ####[facility] LABIA [id number] [address] [address] [place] Creatinine and Glomerular filtration rate.predicted panel (S/P/Bld) 74 mL/min/1.73m??? Normal >=60 [facility] Comment on above: Order Comment: Speci men Type: BLOOD SPECIMENOrdering Facility: [facility] Address: [address] [place] [address] Result Comment: Ofe mated Glomerular Filtration Rate [...] GFR. Performed By: #### 2 4323-8, 3015-3 ####[facility]CLIA [id number] [facility] ERHello Agent [address] [address] [place] Glucose [Mass/Vol] 103 mg/dL High 74-99 [facility] Comment on above: Order Comment: Susan swanson Type: BLOOD SPECIMENOrdering Facility: [facility] Address: [address] [place] [address] Result Comment: The [place] [employer] (ADA) provides guidance for cutoff [...] Standards of Medical Care in Diabetes 2016, [place] [employer]. Diabetes Care. 2016.39(Suppl 1). Performed By: #### 2 4323-8, 3015-3 ####[facility] [id number] [facility] ERK [address] [address] [place] Potassium [Moles/Vol] 4.7 mmol/L Normal 3.7-5.1 [facility] Comment on above: Order Comment: Susan swanson Type: BLOOD SPECIMENOrdering Facility: [facility] Address: [address] [facility] [address] Performed By: #### 2 4323-8, 3015-3 ####[facility] [id number] [facility] ERK [address] [address] [place] Protein [Mass/Vol] 7.2 g/dL Normal 6.3-8.0 [facility] Comment on above: Order Comment: Speci men Type: BLOOD SPECIMENOrdering Facility: [facility] Address: [address] [place] [id number] Performed By: #### 2 4323-8, 3016-3 ####[facility]CLIA [id number] [place] [address] [place] Sodium [Moles/Vol] 140 mmol/L Normal 136-144 [facility] Comment on above: Order Comment: Speci men Type: BLOOD SPECIMENOrdering Facility: [facility] Address: [address] [place] [address] Performed By: #### 2 4323-8, 3016-3 ####[facility] LABIA [id number] [place] [address] [place] Urea nitrogen [Mass/Vol] 21 mg/dL Normal 9-24 [facility] Comment on above: Order Comment: Speci men Type: BLOOD SPECIMENOrdering Facility: [facility] Address: [address] [place] [address] Performed By: #### 2 4323-8, 3016-3 ####[facility] LABIA [id number] [place] [address] [place] HEAVY METALS SCRN BLon 11-20 ARSENIC, BLOOD <10.0 Normal <=12.0 [facility] Comment on above: Order Comment: Speci men Type: BLOOD SPECIMENOrdering Facility: [facility] Address: [address] [place] [address] Result Comment: INTE RPRETIVE INFORMATION: Arsenic, Blood [...] developed and its performance characteristics determined by [facility]. It has not been cleared or approved by the [place] Food and Drug Administration. This test was performed in a CLIA certified laboratory and is intended for clinical purposes. Performed By: #### H EVMET ####[facility] LABORATORIESCLIA [id number] [place] [address] LEAD <2.0 Normal <=4.9 [facility] Comment on above: Order Comment: Speci men Type: BLOOD SPECIMENOrdering Facility: [facility] Address: [facility] [place] [address] Result Comment: INTE RPRETIVE INFORMATION: Lead, Blood [...] developed and its performance characteristics determined by [facility]. It has not been cleared or approved [...] are present. Performed By: #### H EVMET ####[facility] [id number] [place] [address] MERCURY <2.5 Normal <=10.0 [facility] Comment on above: Order Comment: Speci men Type: BLOOD SPECIMENOrdering Facility: [facility] Address: [address] [place] [address] Result Comment: INTE RPRETIVE INFORMATION: Mercury, Blood [...] developed and its performance characteristics determined by [facility]. It has not been cleared or approved by the [place] Food and Drug Administration. This test was performed in a CLIA certified laboratory and is intended for clinical purposes. Performed By: [facility] [address] [place] [address] Armature Connector: Joaquim Real MD, PhD CLIA Number: [id number] Performed By: #### H EVMET ####[facility]IES[facility] [id number] [place] [address] QUANT TOX PANELon 11-20-2024 9-Vufmnzbjqh-5,5-Dimet hyl-3,3-Diphenylpyrrol idine (EDDP) Confirm (U) [Mass/Vol] <25 Normal <25 [facility] Comment on above: Order Comment: Speci men Type: URINE SPECIMEN [facility] Address: [address] [place] [address] Result Comment: 5-Pevccpjguf-8,3-tezfbbjy-6,3-diphenylpyrrolidine (EDDP) is a metabolite of methadone. Performed By: #### 2 4356-8 #### [facility] CLIA [id number] [address] [place] [address] [place] 6-Monoacetylmorphine (6-JAMIE) (U) [Mass/Vol] <5 Normal <5 [facility] Comment on above: Order Comment: Speci men Type: URINE SPECIMEN [facility] Address: [address] [place] [address] Result Comment: 6-Mo noacetylmorphine is a metabolite of heroin. Performed By: #### 2 4356-8 #### [facility] CLIA [id number] [address] [place] [address] [place] Amphetamine Confirm (U) [Mass/Vol] <25 Normal <25 [facility] Comment on above: Order Comment: Speci men Type: URINE SPECIMEN [facility] Address: [address] [place] [address] Result Comment: Meth ylphenidate does not contain or metabolize to amphetamine. Performed By: #### 2 4356-8 #### [facility] CLIA [id number] [address] [place] [address] [place] Benzoylecgonine Confirm (U) [Mass/Vol] <25 Normal <25 [facility] Comment on above: Order Comment: Speci men Type: URINE SPECIMEN [facility] Address: [address] [place] [address] Result Comment: Newton oylecgonine is a metabolite of cocaine. Performed By: #### 2 4356-8 #### [facility] CLIA [id number] [address] [place] [address] [place] Buprenorphine (U) [Mass/Vol] <5 Normal <5 [facility] Comment on above: Order Comment: Speci men Type: URINE SPECIMEN [facility] Address: [address] [place] [address] Result Comment: Mahsa ents using transdermal formulations of buprenorphine may yield undetectable buprenorphine and norbuprenorphine urine concentrations. Performed By: #### 2 4356-8 #### [facility] CLIA [id number] [address] [place] [address] [place] Carboxy tetrahydrocannabinol (U) [Mass/Vol] <10 Normal <10 [facility] Comment on above: Order Comment: Speci men Type: URINE SPECIMEN [facility] Address: [address] [place] [address] Result Comment: 11-N xk-0-noipenb-tetrahydrocannabinol (iqokn-3-grdqelp-THC) is a metabolite of asebv-7-hckrutwnnbjjshhknoqf (THC). This test does not differentiate between delta-8 or delta-9 carboxy-THC. Performed By: #### 2 4356-8 #### [facility] CLIA [id number] [address] [place] [address] [place] Codeine Confirm (U) [Mass/Vol] <25 Normal <25 [facility] Comment on above: Order Comment: Speci men Type: URINE SPECIMEN [facility] Address: [address] [place] [address] Performed By: #### 2 4356-8 #### [facility] CLIA [id number] [address] [place] [address] [place] fentaNYL Confirm (U) [Mass/Vol] <1 Normal <1 [facility] Comment on above: Order Comment: Speci men Type: URINE SPECIMEN [facility] Address: [address] [place] [address] Performed By: #### 2 4356-8 #### [facility] CLIA [id number] [address] [place] [address] [place] HYDROcodone Confirm (U) [Mass/Vol] <25 Normal <25 [facility] Comment on above: Order Comment: Speci men Type: URINE SPECIMEN [facility] Address: [address] [place] [address] Performed By: #### 2 4356-8 #### [facility] CLIA [id number] [address] [place] [address] [place] HYDROmorphone Confirm (U) [Mass/Vol] <25 Normal <25 [facility] Comment on above: Order Comment: Speci men Type: URINE SPECIMEN [facility] Address: [address] [place] [address] Performed By: #### 2 4356-8 #### [facility] CLIA [id number] [address] [place] [address] [place] MDA, UR <25 Normal <25 [facility] Comment on above: Order Comment: Speci men Type: URINE SPECIMEN [facility] Address: [address] [place] [address] Result Comment: 3,4 Methylenedioxyamphetamine is also known as MDA. Performed By: #### 2 4356-8 #### [facility] CLIA [id number] [address] [place] [address] [place] MDEA, UR <25 Normal <25 [facility] Comment on above: Order Comment: Speci men Type: URINE SPECIMEN [facility] Address: [address] [place] [address] Result Comment: 3,4 Nsfuvioumfdhtx-Z-kipfqgkjbffllcad is also known as MDEA. Performed By: #### 2 4356-8 #### [facility] CLIA [id number] [address] [place] [address] [place] MDMA, UR <25 Normal <25 [facility] Comment on above: Order Comment: Speci men Type: URINE SPECIMEN [facility] Address: [address] [place] [address] Result Comment: 3,4- Methylenedioxymethamphetamine is also known as MDMA. Performed By: #### 2 4356-8 #### [facility] CLIA [id number] [address] [place] [address] [place] Methadone Confirm (U) [Mass/Vol] <25 Normal <25 [facility] Comment on above: Order Comment: Speci men Type: URINE SPECIMEN [facility] Address: [address] [place] [address] Performed By: #### 2 4356-8 #### [facility] CLIA [id number] [address] [place] [address] [place] Methamphetamine Confirm (U) [Mass/Vol] <25 Normal <25 [facility] Comment on above: Order Comment: Speci men Type: URINE SPECIMEN [facility] Address: [address] [place] [address] Performed By: #### 2 4356-8 #### [facility] CLIA [id number] [address] [place] [address] [place] Morphine Confirm (U) [Mass/Vol] <25 Normal <25 [facility] Comment on above: Order Comment: Speci men Type: URINE SPECIMEN [facility] Address: [address] [place] [address] Performed By: #### 2 4356-8 #### [facility] CLIA [id number] [address] [place] [address] [place] Norbuprenorphine (U) [Mass/Vol] <10 Normal <10 [facility] Comment on above: Order Comment: Speci men Type: URINE SPECIMEN [facility] Address: [address] [place] [address] Result Comment: Norb uprenorphine is a metabolite of buprenorphine. Patients using transdermal formulations of buprenorphine may yield undetectable buprenorphine and norbuprenorphine urine concentrations. Performed By: #### 2 4356-8 #### [facility] CLIA [id number] [address] [place] [address] [place] Norfentanyl Confirm (U) [Mass/Vol] <1 Normal <1 [facility] Comment on above: Order Comment: Speci men Type: URINE SPECIMEN [facility] Address: [address] [place] [address] Result Comment: Norf entanyl is a metabolite of fentanyl. Performed By: #### 2 4356-8 #### [facility] CLIA [id number] [address] [place] [address] [place] NORHYDROCODONE, UR <25 Normal <25 [facility] Comment on above: Order Comment: Speci men Type: URINE SPECIMEN [facility] Address: [address] [place] [address] Result Comment: Norh ydrocodone is a metabolite of hydrocodone. Performed By: #### 2 4356-8 #### [facility] CLIA [id number] [address] [place] [address] [place] NOROXYCODONE, UR <25 Normal <25 [facility] Comment on above: Order Comment: Speci men Type: URINE SPECIMEN [facility] Address: [address] [place] [address] Result Comment: Noro xycodone is a metabolite of oxycodone. Performed By: #### 2 4356-8 #### [facility] CLIA [id number] [address] [place] [address] [place] NOROXYMORPHONE, UR <25 Normal <25 [facility] Comment on above: Order Comment: Speci men Type: URINE SPECIMEN [facility] Address: [address] [place] [address] Result Comment: Noro xymorphone is a metabolite of oxymorphone and oxycodone and a minor metabolite of naltrexone and naloxone. Performed By: #### 2 4356-8 #### [facility] CLIA [id number] [address] [place], [place] [address] [place] Nortramadol (U) [Mass/Vol] <25 Normal <25 [facility] Comment on above: Order Comment: Speci men Type: URINE SPECIMEN [facility] Address: [address] [place] [address] Result Comment: O-de smethyltramadol is a metabolite of tramadol. Performed By: #### 2 4356-8 #### [facility] CLIA [id number] [address] [place] [address] [place] NOTE, UR TOXICOLOGY PANEL Normal [facility] Comment on above: Order Comment: Speci men Type: URINE SPECIMEN [facility] Address: [address] [place] [address] Result Comment: For medical purposes only. Not valid for legal or forensic purposes. This test was developed, and its performance characteristics determined by the [facility] Department of Pathology and Laboratory Medicine. It has not been cleared or approved by the FDA. The [facility] Department of Pathology and Laboratory Medicine is regulated under CLIA as qualified to perform high-complexity testing. This test is used for clinical purposes. It should not be regarded as investigational or for research. Performed By: #### 2 4356-8 #### [facility] CLIA [id number] [address] [place] [address] [place] oxyCODONE Confirm (U) [Mass/Vol] <25 Normal <25 [facility] Comment on above: Order Comment: Speci men Type: URINE SPECIMEN [facility] Address: [address] [place] [address] Performed By: #### 2 4356-8 #### [facility] CLIA [id number] [address] [place] [address] [place] oxyMORphone Confirm (U) [Mass/Vol] <25 Normal <25 [facility] Comment on above: Order Comment: Speci men Type: URINE SPECIMEN [facility] Address: [address] [place] [address] Performed By: #### 2 4356-8 #### [facility] CLIA [id number] [address] [place] [address] [place] Phencyclidine Confirm (U) [Mass/Vol] <10 Normal <10 [facility] Comment on above: Order Comment: Speci men Type: URINE SPECIMEN [facility] Address: [address] [place] [address] Result Comment: Phen cyclidine is also known as PCP. Performed By: #### 2 4356-8 #### [facility] CLIA [id number] [address] [place] [address] [place] PHENTERMINE, UR <25 Normal <25 [facility] Comment on above: Order Comment: Speci men Type: URINE SPECIMEN [facility] Address: [address] [place] [address] Performed By: #### 2 4356-8 #### [facility] CLIA [id number] [address] [place] [address] [place] traMADol Confirm (U) [Mass/Vol] <25 Normal <25 [facility] Comment on above: Order Comment: Speci men Type: URINE SPECIMEN [facility] Address: [address] [place] [address] Performed By: #### 2 4356-8 #### [facility] CLIA [id number] [address] [place] [address] [place] SPECIMEN VALIDITY, URINEon 0 11-20-2024 CREATININE,URINE 147.1 mg/dL Normal 20.0-300.0 [facility] Comment on above: Order Comment: Speci men Type: URINE SPECIMENOrdering Facility: [facility] Address: [address] [place] [address] Performed By: #### L [id number] ####[facility] [id number] [place] [address] [place] NITRITES,URINE <50 Normal <500 [facility] Comment on above: Order Comment: Speci men Type: URINE SPECIMENOrdering Facility: [facility] Address: [address] [place] [address] Performed By: #### L [id number] ####[facility]IA [id number] [place] [id number] [place] OXIDANTS,URINE <38 Normal <200 [facility] Comment on above: Order Comment: Speci men Type: URINE SPECIMENOrdering Facility: [facility] Address: [address] [place] [address] Performed By: #### L [id number] ####[facility] [id number] [place] [id number] [place] pH (U) 5.3 [pH] Normal 4.5-8.0 [facility] Comment on above: Order Comment: Speci men Type: URINE SPECIMENOrdering Facility: [facility] Address: [address] [place] [address] Performed By: #### L [id number] ####[facility] [id number] [place] [id number] [place] SPEC GRAVITY,UR 1.019 Normal 1.003-1.035 [facility] Comment on above: Order Comment: Speci men Type: URINE SPECIMENOrdering Facility: [facility] Address: [address] [place] [address] Performed By: #### L [id number] ####[facility] [id number] [address] STATES OF [facility] SPECIMEN VALIDITY QUALITY Specimen quality results within acceptable limits Normal [facility] Comment on above: Order Comment: Speci men Type: URINE SPECIMENOrdering Facility: [facility] Address: [address] [place] [address] Performed By: #### L [id number] ####[facility] [id number] [address] [place] TOXICOLOGY SCREEN, ROUTINE U RINEon 11-20-2024 Amphetamines Confirm (U) [Mass/Vol] Negative Negative [facility] Comment on above: Cutoff threshold at 1000 ng/mL. Barbiturates, Urine Negative Negative [facility] Comment on above: Cutoff threshold at 200 ng/mL. Benzodiazepines, Urine Negative Negative [facility] Comment on above: Cutoff threshold at 200 ng/mL. Cannabinoids Screen Ql (U) Negative Negative [facility] Comment on above: Cutoff threshold at 50 ng/mL. Cocaine Ql (U) Negative Negative [facility] Comment on above: Cutoff threshold at 300 ng/mL. Ethanol (U) [Mass/Vol] mg/dL NINF - 11 mg/dL [facility] fentaNYL Screen Ql (U) Negative Negative [facility] Comment on above: Cutoff threshold at 5 ng/mL. Interpretation and review of laboratory results Normal [facility] Opiates Screen Ql (U) Negative Negative [facility] Comment on above: Cutoff threshold at 300 ng/mL. oxyCODONE cutoff Screen (U) [Mass/Vol] Negative Negative [facility] Comment on above: Cutoff threshold at 100 ng/mL. Phencyclidine Ql (U) Negative Negative [facility] Comment on above: Cutoff threshold [...] on the same specimen through Client Services ([phone]) if contacted within 48 hours of initial testing. [1]Substance Abuse and Mental Health Services Administration (2012). Clinical Drug Testing in Primary Care Technical Assistance Publication Series 32. Department of Health and Human Services, [place], p.10. [facility] Amphetamines Confirm (U) [Mass/Vol] Negative Normal Negative [facility] Comment on above: Order Comment: Speci men Type: URINE SPECIMEN Ordering Facility: [facility] Address: [address] [place] [address] Result Comment: Cuto ff threshold at 1000 ng/mL. Performed By: #### 2 4356-8 #### [facility] CLIA [id number] [address] [place] [address] [place] BARBITURATES, URINE Negative Normal Negative [facility] Comment on above: Order Comment: Speci men Type: URINE SPECIMEN Ordering Facility: [facility] Address: [address] [place] [address] Result Comment: Cuto ff threshold at 200 ng/mL. Performed By: #### 2 4356-8 #### [facility] CLIA [id number] [address] [place] [address] [place] BENZODIAZEPINES, URINE Negative Normal Negative [facility] Comment on above: Order Comment: Speci men Type: URINE SPECIMEN Ordering Facility: [facility] Address: [address] [place] [address] Result Comment: Cuto ff threshold at 200 ng/mL. Performed By: #### 2 4356-8 #### [facility] CLIA [id number] [address] [place] [address] [place] Cannabinoids Screen Ql (U) Negative Normal Negative [facility] Comment on above: Order Comment: Speci men Type: URINE SPECIMEN Ordering Facility: [facility] Address: [address] [place] [address] Result Comment: Cuto ff threshold at 50 ng/mL. Performed By: #### 2 4356-8 #### [facility] CLIA [id number] [address] [place] [address] [place] Cocaine Ql (U) Negative Normal Negative [facility] Comment on above: Order Comment: Speci men Type: URINE SPECIMEN Ordering Facility: [facility] Address: [address] [place] [address] Result Comment: Cuto ff threshold at 300 ng/mL. Performed By: #### 2 4356-8 #### [facility] CLIA [id number] [address] [place] [address] [place] Ethanol (U) [Mass/Vol] <11 Normal <11 [facility] Comment on above: Order Comment: Speci men Type: URINE SPECIMEN Ordering Facility: [facility] Address: [address] [place] [address] Performed By: #### 2 4356-8 #### [facility] CLIA [id number] [address] [place] [address] [place] fentaNYL Screen Ql (U) Negative Normal Negative [facility] Comment on above: Order Comment: Speci men Type: URINE SPECIMEN Ordering Facility: [facility] Address: [address] [place] [address] Result Comment: Cuto ff threshold at 5 ng/mL. Performed By: #### 2 4356-8 #### [facility] CLIA [id number] [address] [place] [address] [place] Opiates Screen Ql (U) Negative Normal Negative [facility] Comment on above: Order Comment: Speci men Type: URINE SPECIMEN Ordering Facility: [facility] Address: [address] [place] [address] Result Comment: Cuto ff threshold at 300 ng/mL. Performed By: #### 2 4356-8 #### [facility] CLIA [id number] [address] [place] [address] [place] oxyCODONE cutoff Screen (U) [Mass/Vol] Negative Normal Negative [facility] Comment on above: Order Comment: Speci men Type: URINE SPECIMEN Ordering Facility: [facility] Address: [address] [place] [address] Result Comment: Cuto ff threshold at 100 ng/mL. Performed By: #### 2 4356-8 #### [facility] CLIA [id number] [address] [place] [address] [place] Phencyclidine Ql (U) Negative Normal Negative [facility] Comment on above: Order Comment: Speci men Type: URINE SPECIMEN Ordering Facility: [facility] Address: [address] [place] [address] Result Comment: Cuto ff threshold at 25 ng/mL. Performed By: #### 2 4356-8 #### [facility] CLIA [id number] [address] [place] [address] [place] TSH SerPl-aCncon 11-20-2024 TSH Qn 2.510 m[IU]/L Normal 0.270-4.200 [facility] Comment on above: Order Comment: Speci men Type: BLOOD SPECIMENOrdering Facility: [facility] Address: [address] [place] [address] Performed By: #### 2 4323-8, 3016-3 ####[facility] [id number] [place] [address] [place] Urinalysis complete panel (U )on 11-20-2024 Bacteria LM.HPF (Urine sed) [#/Area] Negative Negative /HPF [facility] Bilirubin Ql (U) Negative Negative [facility] Clarity (Unsp spec) Clear Clear [facility] Color (U) Yellow Yellow [facility] Epithelial cells LM.HPF (Urine sed) [#/Area] None Seen /HPF [facility] Glucose Test strip (U) [Mass/Vol] Negative Negative [facility] Hemoglobin Ql (U) Negative Negative [facility] Hyaline casts (Urine sed) [#/Area] 0 /[LPF] 0 /LPF [facility] Ketones Ql (U) Negative Negative [facility] Leukocyte esterase Test strip Ql (U) Negative Negative [facility] Nitrite Ql (U) Negative Negative [facility] pH (U) 5.5 [pH] NINF - 8.5 [facility] Protein (U) [Mass/Vol] Negative Negative [facility] RBC LM.HPF (Urine sed) [#/Area] 0-2 /HPF 0-2 /HPF [facility] Specific gravity (U) [Rel density] 1.023 1.005 - 1.030 [facility] Urobilinogen Ql (U) 0.2 EU/dL 0.2-1.0 EU/dL [facility] WBC LM.HPF (Urine sed) [#/Area] 0-5 /HPF 0-5 /HPF [facility] This test was kathy barbosa and its performance characteristics determined by [facility]'s [facility] Pathology and Laboratory Medicine [place] ([facility]). It has not been cleared or approved by the FDA. [facility] is regulated under CLIA as qualified to perform high-complexity testing. This test is used for clinical purposes. It should not be regarded as investigational or for research. [facility] Bacteria LM.HPF (Urine sed) [#/Area] Negative Normal Negative [facility] Comment on above: Order Comment: Speci men Type: URINE SPECIMEN Ordering Facility: [facility] Address: [address] [place] [address] Performed By: #### 2 4356-8 #### [facility] CLIA [id number] [address] [place] [address] [place] Bilirubin Ql (U) Negative Normal Negative [facility] Comment on above: Order Comment: Speci men Type: URINE SPECIMEN Ordering Facility: [facility] Address: [address] [place] [address] Performed By: #### 2 4356-8 #### [facility] CLIA [id number] [facility] [place] [id number] [place] Clarity (Unsp spec) Clear Normal Clear [facility] Comment on above: Order Comment: Speci men Type: URINE SPECIMEN Ordering Facility: [facility] Address: [address] [place] [id number] Performed By: #### 2 4356-8 #### [facility] CLIA [id number] [address] [place], [place] [id number] [place] Color (U) Yellow Normal Yellow [facility] Comment on above: Order Comment: Speci men Type: URINE SPECIMEN Ordering Facility: [facility] Address: [address] [place] [address] Performed By: #### 2 4356-8 #### [facility] CLIA [id number] [address] [place] [address] [place] Epithelial cells LM.HPF (Urine sed) [#/Area] None Seen Normal [facility] Comment on above: Order Comment: Speci men Type: URINE SPECIMEN Ordering Facility: [facility] Address: [address] [place] [address] Performed By: #### 2 4356-8 #### [facility] CLIA [id number] [address] [place], [place] [id number] [place] Glucose Test strip (U) [Mass/Vol] Negative Normal Negative [facility] Comment on above: Order Comment: Speci men Type: URINE SPECIMEN Ordering Facility: [facility] Address: [address] [place] [address] Performed By: #### 2 4356-8 #### [facility] CLIA [id number] [address] [place], [place] [address] [place] Hemoglobin Ql (U) Negative Normal Negative [facility] Comment on above: Order Comment: Speci men Type: URINE SPECIMEN Ordering Facility: [facility] Address: [address] [place] [address] Performed By: #### 2 4356-8 #### [facility] CLIA [id number] [address] [place], [place] [id number] [place] Hyaline casts (Urine sed) [#/Area] 0 /[LPF] Normal 0 /LPF [facility] Comment on above: Order Comment: Speci men Type: URINE SPECIMEN Ordering Facility: [facility] Address: [address] [place] [address] Performed By: #### 2 4356-8 #### [facility] CLIA [id number] [address] [place] [address] [place] Ketones Ql (U) Negative Normal Negative [facility] Comment on above: Order Comment: Speci men Type: URINE SPECIMEN Ordering Facility: [facility] Address: [address] [place] [address] Performed By: #### 2 4356-8 #### [facility] CLIA [id number] [address] [place] [address] [place] Leukocyte esterase Test strip Ql (U) Negative Normal Negative [facility] Comment on above: Order Comment: Speci men Type: URINE SPECIMEN Ordering Facility: [facility] Address: [address] [place] [address] Performed By: #### 2 4356-8 #### [facility] CLIA [id number] [address] [place] [address] [place] Nitrite Ql (U) Negative Normal Negative [facility] Comment on above: Order Comment: Speci men Type: URINE SPECIMEN Ordering Facility: [facility] Address: [address] [place] [address] Performed By: #### 2 4356-8 #### [facility] CLIA [id number] [address] [place] [address] [place] pH (U) 5.5 [pH] Normal <8.5 [facility] Comment on above: Order Comment: Speci men Type: URINE SPECIMEN Ordering Facility: [facility] Address: [address] [place] [address] Performed By: #### 2 4356-8 #### [facility] CLIA [id number] [address] [place] [address] [place] Protein (U) [Mass/Vol] Negative Normal Negative [facility] Comment on above: Order Comment: Speci men Type: URINE SPECIMEN Ordering Facility: [facility] Address: [address] [place] [address] Performed By: #### 2 4356-8 #### [facility] CLIA [id number] [address] [place] [address] [place] RBC LM.HPF (Urine sed) [#/Area] 0-2 /HPF Normal 0-2 /HPF [facility] Comment on above: Order Comment: Speci men Type: URINE SPECIMEN Ordering Facility: [facility] Address: [address] [place] [address] Performed By: #### 2 4356-8 #### [facility] CLIA [id number] [address] [place] [address] [place] Specific gravity (U) [Rel density] 1.023 Normal 1.005-1.030 [facility] Comment on above: Order Comment: Speci men Type: URINE SPECIMEN Ordering Facility: [facility] Address: [address] [place] [address] Performed By: #### 2 4356-8 #### [facility] CLIA [id number] [address] [place] [address] [place] Urobilinogen Ql (U) 0.2 EU/dL Normal 0.2-1.0 EU/dL [facility] Comment on above: Order Comment: Speci men Type: URINE SPECIMEN Ordering Facility: [facility] Address: [address] [place] [address] Performed By: #### 2 4356-8 #### [facility] CLIA [id number] [address] [place] [address] [place] WBC LM.HPF (Urine sed) [#/Area] 0-5 /HPF Normal 0-5 /HPF [facility] Comment on above: Order Comment: Speci men Type: URINE SPECIMEN Ordering Facility: [facility] Address: [address] [place] [address] Performed By: #### 2 4356-8 #### [facility] CLIA [id number] [address] [place] [address] [place] CNPNon 10-30-2024 [facility]) CRISSY RICHTER ([id number]) 1955 Date Time Provider Department 10/30/24 YRN HOLLAND [facility] During your visit today, we recorded the following information about you: Maryann Chen RN 10/30/2024 8:51 AM Signed Pt called in let him know that his next appointment is on 04/04/25. Let him know that his Lipitor was sent in on 10/12/24 and to call [facility] in [place]. Maryann Chen RN Allergies As of Date: 10/30/2024 (No Known Allergies) Date Reviewed: 05/10/2024 Reviewed by: iLsa Robin LPN - Fully Assessed Reason for Visit: Patient Question [5177] Prescriptions as of 10/30/2024 - atorvastatin (LIPITOR) [...] by mouth. Taking 1000 mg daily - md-rqn-plema acid-lutein (CENTRUM SILVER) 400-250 mcg chew Take [...] 07-24-2024 PSA,TOT SCREEN 1.27 ng/mL Normal 0.02-4.00 [facility] Comment on above: Result Comment: This [...] values. Performed By: #### L 501.9910 #### [facility] [address] [place], [address] [facility] 05-11-2024 [facility] CRISSY RICHTER ([id number]) 1955 M Date Time Provider Department 05/11/24 YRN HOLLAND [facility] During your visit today, we recorded the [...] Fully Assessed Reason for Visit: Patient Question [5727] Order(s):atorvastatin (LIPITOR) 10 mg tabletTake 1 tablet [...] by mouth. Taking 1000 mg daily - dh-xme-hhxme acid-lutein (CENTRUM SILVER) 400-250 mcg chew Take [...] Encounter Status:Closed by YRN HOLLAND on 05/11/24 [facility] CNOVon 05-10-2024 CNOV Office Visit ([facility]AMPWS ) CRISSY RICHTER ([id number]) 1955 M Date Time Provider Department 05/10/24 10:00 AM FELECIA QUIROZ [facility] During your visit today, we recorded the [...] Take by mouth. Taking 1000 mg daily of-tjw-hcrwp acid-lutein (CENTRUM SILVER) 400-250 mcg chew Take [...] ICD10: R03.0 (more content not included)... [facility] CRISSY RICHTER ([id number]) 1955 M Date Time Provider Department 04/20/24 [facility] During your visit today, we recorded the [...] by mouth. Taking 1000 mg daily - cr-tvo-nxijo acid-lutein (CENTRUM SILVER) 400-250 mcg chew Take [...] Status:Closed by YRN HOLLAND on 04/24/24 Normal [facility] Comprehensive metabolic 2000 panelon 04-20-2024 Albumin [Mass/Vol] 4.4 g/dL 3.9 - 4.9 g/dL [facility] ALP [Catalytic activity/Vol] 125 U/L High 38 - 113 U/L [facility] ALT [Catalytic activity/Vol] 28 U/L 10 - 54 U/L [facility] Anion gap [Moles/Vol] 11 mmol/L 8 - 15 mmol/L [facility] AST [Catalytic activity/Vol] 21 U/L 14 - 40 U/L [facility] Bilirubin [Mass/Vol] mg/dL Low 0.2 - 1 .3 mg/dL [facility] Calcium [Mass/Vol] 9.4 mg/dL 8.5 - 10. 2 mg/dL [facility] Chloride [Moles/Vol] 103 mmol/L 98 - 10 7 mmol/L [facility] CO2 [Moles/Vol] 27 mmol/L 22 - 30 mmol/L [facility] Creatinine [Mass/Vol] 1.07 mg/dL 0.73 - 1.22 mg/dL [facility] GFR/1.73 sq M.predicted among non-blacks MDRD (S/P/Bld) [Vol rate/Area] 76 mL/min/{1.73_m2} - PINF [facility] Comment on above: Estimated Glomerular Filtration Rate [...] [Mass/Vol] 96 mg/dL 74 - 99 mg/dL [facility] Comment on above: The [place] Diabete s Association (ADA) provides guidance for [...] Standards of Medical Care in Diabetes 2016, [place] Diabetes Association. Diabetes Care. 2016.39(Suppl 1). Potassium [Moles/Vol] 4.2 mmol/L 3.7 - 5.1 mmol/L [facility] Protein [Mass/Vol] 7.4 g/dL 6.3 - 8.0 g/dL [facility] Sodium [Moles/Vol] 141 mmol/L 136 - 144 mmol/L [facility] Urea nitrogen [Mass/Vol] 22 mg/dL 9 - 24 mg/dL [facility] LIPID PANEL, NONFASTINGon Cholesterol [Mass/Vol] 258 mg/dL High NINF - 200 mg/dL [facility] Comment on above: <200 mg/dL, Desirabl e 200-239 mg/dL, Borderline high >239 mg/dL, High HDL Cholesterol, Nonfasting 57 mg/dL 39 - PINF mg/dL [facility] Comment on above: 40-59 mg/dL, Accepta ble >59 mg/dL, High: Negative risk factor for coronary heart disease <40 mg/dL, Low: Positive risk factor for coronary heart disease LDL Cholesterol, Nonfasting 179 mg/dL High NINF - 100 mg/dL [facility] Comment on above: <100 mg/dL, Optimal 100-129 mg/dL, Near optimal/above optimal 130-159 mg/dL, Borderline high 160-189 mg/dL, High >189 mg/dL, Very high Secondary prevention optimal LDL Cholesterol levels are recommended to be < 70 mg/dL LDL/HDL Ratio, Nonfasting 3.14 mg/dL High NINF - 2.54 mg/dL [facility] Comment on above: Reference: 1. National Cholesterol Education Program ATP III Guideline At-A-Glance Quick Desk Reference: National Heart, Lung, and Blood [place]. National Institutes of Health. 2001: NIH Publication No. 01-3305. 2. An International Atherosclerosis Society position paper: global recommendations for the management of dyslipidemia: executive summary, Atherosclerosis. 2014: 232(2):410-413. Non HDL Cholesterol, Nonfasting 201 mg/dL High NINF - 130 mg/dL [facility] Comment on above: <130 mg/dL, Optimal 130-159 mg/dL, Near optimal/above optimal 160-189 mg/dL, Borderline high 190-219 mg/dL, High >219 mg/dL, Very high Secondary prevention optimal non HDL Cholesterol levels are recommended to be <100 mg/dL Total Chol/HDL Ratio, Nonfasting 4.53 mg/dL NINF - 5.10 mg/dL [facility] Triglycerides, Nonfasting 110 mg/dL NINF - 150 mg/dL [facility] Comment on above: <150 mg/dL, Normal 150-199 mg/dL, Borderline high 200-499 mg/dL, High >499 mg/dL, Very high VLDL Cholesterol, Nonfasting 22 mg/dL NINF - 30 mg/dL [facility] No Panel Informationon 04-20 Interpretation and review of laboratory results Abnormal [facility] THYROID STIMULATING HORMONEo n 04-20-2024 TSH Qn 2.920 m[IU]/L [facility] TSH Qnon 04-20-2024 Interpretation and review of laboratory results Normal [facility] CBC W Auto Differential pane l (Bld)on 04-19-2024 Basophils (Bld) [#/Vol] 0.05 10*3/uL [facility] Basophils/100 WBC (Bld) 0.8 % [facility] Differential cell count method Nom (Bld) Auto [facility] Eosinophils (Bld) [#/Vol] 0.15 10*3/uL [facility] Eosinophils/100 WBC (Bld) 2.4 % [facility] Erythrocyte distribution width (RBC) [Ratio] 13.6 % 11.5 - 15.0 % [facility] Hematocrit (Bld) [Volume fraction] 43.1 % 39.0 - 51.0 % [facility] Hemoglobin (Bld) [Mass/Vol] 13.8 g/dL 13.0 - 17.0 g/dL [facility] Immature granulocytes (Bld) [#/Vol] [facility] Immature granulocytes/100 WBC (Bld) 0.3 % [facility] Lymphocytes (Bld) [#/Vol] 1.09 10*3/uL [facility] Lymphocytes/100 WBC (Bld) 17.4 % [facility] MCH (RBC) [Entitic mass] 29.5 pg 26.0 - 34.0 pg [facility] MCHC (RBC) [Mass/Vol] 32.0 g/dL 30.5 - 36.0 g/dL [facility] MCV (RBC) [Entitic vol] 92.1 fL 80.0 - 100.0 fL [facility] Monocytes (Bld) [#/Vol] 0.61 10*3/uL [facility] Monocytes/100 WBC (Bld) 9.7 % [facility] Neutrophils (Bld) [#/Vol] 4.35 10*3/uL [facility] Neutrophils/100 WBC (Bld) 69.4 % [facility] Nucleated RBC (Bld) [#/Vol] [facility] Nucleated RBC/100 WBC (Bld) [Ratio] 0.0 % /100 WBC [facility] Platelet mean volume (Bld) [Entitic vol] 9.2 fL 9.0 - 12.7 fL [facility] Platelets (Bld) [#/Vol] 309 10*3/uL [facility] RBC (Bld) [#/Vol] 4.68 10*6/uL 4.20 - 6.0 0 m/uL [facility] WBC (Bld) [#/Vol] 6.27 10*3/uL [facility] Basophils (Bld) [#/Vol] 0.05 10*3/uL Normal <0.11 [facility] Comment on above: Order Comment: Speci men Type: URINE SPECIMEN Ordering Facility: [facility] Address: [address] [place] [address] Performed By: #### 2 4356-8 #### [facility] CLIA [id number] [address] [place] [address] [place] Basophils/100 WBC (Bld) 0.8 % Normal [facility] Comment on above: Order Comment: Speci men Type: URINE SPECIMEN Ordering Facility: [facility] Address: [address] [place] [address] Performed By: #### 2 4356-8 #### [facility] CLIA [id number] [address] [place] [address] [place] Differential cell count method Nom (Bld) Auto Normal [facility] Comment on above: Order Comment: Speci men Type: URINE SPECIMEN Ordering Facility: [facility] Address: [address] [place] [address] Performed By: #### 2 4356-8 #### [facility] CLIA [id number] [address] [place] [address] [place] Eosinophils (Bld) [#/Vol] 0.15 10*3/uL Normal <0.46 [facility] Comment on above: Order Comment: Speci men Type: URINE SPECIMEN Ordering Facility: [facility] Address: [address] [place] [address] Performed By: #### 2 4356-8 #### [facility] CLIA [id number] [address] [place] [address] [place] Eosinophils/100 WBC (Bld) 2.4 % Normal [facility] Comment on above: Order Comment: Speci men Type: URINE SPECIMEN Ordering Facility: [facility] Address: [address] [place] [address] Performed By: #### 2 4356-8 #### [facility] CLIA [id number] [address] [place] [address] [place] Erythrocyte distribution width (RBC) [Ratio] 13.6 % Normal 11.5-15.0 [facility] Comment on above: Order Comment: Speci men Type: URINE SPECIMEN Ordering Facility: [facility] Address: [address] [place] [address] Performed By: #### 2 4356-8 #### [facility] CLIA [id number] [address] [place] [address] [place] Hematocrit (Bld) [Volume fraction] 43.1 % Normal 39.0-51.0 [facility] Comment on above: Order Comment: Speci men Type: URINE SPECIMEN Ordering Facility: [facility] Address: [address] [place] [address] Performed By: #### 2 4356-8 #### [facility] CLIA [id number] [address] [place] [address] [place] Hemoglobin (Bld) [Mass/Vol] 13.8 g/dL Normal 13.0-17.0 [facility] Comment on above: Order Comment: Speci men Type: URINE SPECIMEN Ordering Facility: [facility] Address: [address] [place] [address] Performed By: #### 2 4356-8 #### [facility] CLIA [id number] [address] [place] [address] [place] Immature granulocytes (Bld) [#/Vol] 10*3/uL Normal <0.10 [facility] Comment on above: Order Comment: Speci men Type: URINE SPECIMEN Ordering Facility: [facility] Address: [address] [place] [address] Performed By: #### 2 4356-8 #### [facility] CLIA [id number] [address] [place] [address] [place] Immature granulocytes/100 WBC (Bld) 0.3 % Normal [facility] Comment on above: Order Comment: Speci men Type: URINE SPECIMEN Ordering Facility: [facility] Address: [address] [place] [address] Performed By: #### 2 4356-8 #### [facility] CLIA [id number] [address] [place] [address] [place] Lymphocytes (Bld) [#/Vol] 1.09 10*3/uL Normal 1.00-4.00 [facility] Comment on above: Order Comment: Speci men Type: URINE SPECIMEN Ordering Facility: [facility] Address: [address] [place] [address] Performed By: #### 2 4356-8 #### [facility] CLIA [id number] [address] [place] [address] [place] Lymphocytes/100 WBC (Bld) 17.4 % Normal [facility] Comment on above: Order Comment: Speci men Type: URINE SPECIMEN Ordering Facility: [facility] Address: [address] [place] [address] Performed By: #### 2 4356-8 #### [facility] CLIA [id number] [address] [place] [address] [place] MCH (RBC) [Entitic mass] 29.5 pg Normal 26.0-34.0 [facility] Comment on above: Order Comment: Speci men Type: URINE SPECIMEN Ordering Facility: [facility] Address: [address] [place] [address] Performed By: #### 2 4356-8 #### [facility] CLIA [id number] [address] [place] [address] [place] MCHC (RBC) [Mass/Vol] 32.0 g/dL Normal 30.5-36.0 [facility] Comment on above: Order Comment: Speci men Type: URINE SPECIMEN Ordering Facility: [facility] Address: [address] [place] [address] Performed By: #### 2 4356-8 #### [facility] CLIA [id number] [address] [place] [address] [place] MCV (RBC) [Entitic vol] 92.1 fL Normal 80.0-100.0 [facility] Comment on above: Order Comment: Speci men Type: URINE SPECIMEN Ordering Facility: [facility] Address: [address] [place] [address] Performed By: #### 2 4356-8 #### [facility] CLIA [id number] [address] [place] [address] [place] Monocytes (Bld) [#/Vol] 0.61 10*3/uL Normal <0.87 [facility] Comment on above: Order Comment: Speci men Type: URINE SPECIMEN Ordering Facility: [facility] Address: [address] [place] [address] Performed By: #### 2 4356-8 #### [facility] CLIA [id number] [address] [place] [address] [place] Monocytes/100 WBC (Bld) 9.7 % Normal [facility] Comment on above: Order Comment: Speci men Type: URINE SPECIMEN Ordering Facility: [facility] Address: [address] [place] [address] Performed By: #### 2 4356-8 #### [facility] CLIA [id number] [address] [place] [address] [place] Neutrophils (Bld) [#/Vol] 4.35 10*3/uL Normal 1.45-7.50 [facility] Comment on above: Order Comment: Speci men Type: URINE SPECIMEN Ordering Facility: [facility] Address: [address] [place] [address] Performed By: #### 2 4356-8 #### [facility] CLIA [id number] [address] [place] [address] [place] Neutrophils/100 WBC (Bld) 69.4 % Normal [facility] Comment on above: Order Comment: Speci men Type: URINE SPECIMEN Ordering Facility: [facility] Address: [address] [place] [address] Performed By: #### 2 4356-8 #### [facility] CLIA [id number] [address] [place] [address] [place] Nucleated RBC (Bld) [#/Vol] 10*3/uL Normal <0.01 [facility] Comment on above: Order Comment: Speci men Type: URINE SPECIMEN Ordering Facility: [facility] Address: [address] [place] [address] Performed By: #### 2 4356-8 #### [facility] CLIA [id number] [address] [place] [address] [place] Nucleated RBC/100 WBC (Bld) [Ratio] 0.0 /100 WBC Normal [facility] Comment on above: Order Comment: Speci men Type: URINE SPECIMEN Ordering Facility: [facility] Address: [address] [place] [address] Performed By: #### 2 4356-8 #### [facility] CLIA [id number] [address] [place] [address] [place] Platelet mean volume (Bld) [Entitic vol] 9.2 fL Normal 9.0-12.7 [facility] Comment on above: Order Comment: Speci men Type: URINE SPECIMEN Ordering Facility: [facility] Address: [address] [place] [address] Performed By: #### 2 4356-8 #### [facility] CLIA [id number] [address] [place] [address] [place] Platelets (Bld) [#/Vol] 309 10*3/uL Normal 150-400 [facility] Comment on above: Order Comment: Speci men Type: URINE SPECIMEN Ordering Facility: [facility] Address: [address] [place] [address] Performed By: #### 2 4356-8 #### [facility] CLIA [id number] [address] [place] [address] [place] RBC (Bld) [#/Vol] 4.68 10*6/uL Normal 4.20-6.00 [facility] Comment on above: Order Comment: Speci men Type: URINE SPECIMEN Ordering Facility: [facility] Address: [address] [place] [address] Performed By: #### 2 4356-8 #### [facility] CLIA [id number] [address] [place] [address] [place] WBC (Bld) [#/Vol] 6.27 10*3/uL Normal 3.70-11.00 [facility] Comment on above: Order Comment: Speci men Type: URINE SPECIMEN Ordering Facility: [facility] Address: [address] [place] [address] Performed By: #### 2 4356-8 #### [facility] CLIA [id number] [address] [place] [address] OF [place] CNOVon 04-19-2024 CNOV [facility] CRISSY RICHTER ([id number]) 1955 M Date Time Provider Department 04/19/24 [...] Visit Medicat (more content not included)... Normal [facility] Comprehensive metabolic 2000 panelon 04-19-2024 Albumin [Mass/Vol] 4.4 g/dL Normal 3.9-4.9 [facility] Comment on above: Order Comment: Speci men Type: URINE SPECIMEN Ordering Facility: [facility] Address: [address] [place] [address] Performed By: #### 2 4356-8 #### [facility] CLIA [id number] [address] [place] [address] [place] ALP [Catalytic activity/Vol] 125 U/L High 38-113 [facility] Comment on above: Order Comment: Speci men Type: URINE SPECIMEN Ordering Facility: [facility] Address: [address] [place] [address] Performed By: #### 2 4356-8 #### [facility] CLIA [id number] [address] [place] [address] [place] ALT [Catalytic activity/Vol] 28 U/L Normal 10-54 [facility] Comment on above: Order Comment: Speci men Type: URINE SPECIMEN Ordering Facility: [facility] Address: [address] [place] [address] Performed By: #### 2 4356-8 #### [facility] CLIA [id number] [address] [place] [address] [place] Anion gap [Moles/Vol] 11 mmol/L Normal 8-15 [facility] Comment on above: Order Comment: Speci men Type: URINE SPECIMEN Ordering Facility: [facility] Address: [address] [place] [address] Performed By: #### 2 4356-8 #### [facility] CLIA [id number] [address] [place] [address] [place] AST [Catalytic activity/Vol] 21 U/L Normal 14-40 [facility] Comment on above: Order Comment: Speci men Type: URINE SPECIMEN Ordering Facility: [facility] Address: [address] [place] [address] Performed By: #### 2 4356-8 #### [facility] CLIA [id number] [address] [place] [address] [place] Bilirubin [Mass/Vol] mg/dL Low 0.2-1.3 [facility] Comment on above: Order Comment: Speci men Type: URINE SPECIMEN Ordering Facility: [facility] Address: [address] [place] [address] Performed By: #### 2 4356-8 #### [facility] CLIA [id number] [address] [place] [address] [place] Calcium [Mass/Vol] 9.4 mg/dL Normal 8.5-10.2 [facility] Comment on above: Order Comment: Speci men Type: URINE SPECIMEN Ordering Facility: [facility] Address: [address] [place] [address] Performed By: #### 2 4356-8 #### [facility] CLIA [id number] [address] [place] [address] [place] Chloride [Moles/Vol] 103 mmol/L Normal 98-107 [facility] Comment on above: Order Comment: Speci men Type: URINE SPECIMEN Ordering Facility: [facility] Address: [address] [place] [address] Performed By: #### 2 4356-8 #### [facility] CLIA [id number] [address] [place], [place] [address] [place] CO2 [Moles/Vol] 27 mmol/L Normal 22-30 [facility] Comment on above: Order Comment: Speci men Type: URINE SPECIMEN Ordering Facility: [facility] Address: [address] [place] [address] Performed By: #### 2 4356-8 #### [facility] CLIA [id number] [address] [place], [place] [address] [place] [facility] Creatinine [Mass/Vol] 1.07 mg/dL Normal 0.73-1.22 [facility] Comment on above: Order Comment: Susan swanson Type: URINE SPECIMEN Ordering Facility: [facility] Address: [address] [place] [address] Performed By: #### 2 4356-8 #### [facility] CLIA [id number] [address] [place] [address] [place] Creatinine and Glomerular filtration rate.predicted panel (S/P/Bld) 76 mL/min/1.73m??? Normal >=60 [facility] Comment on above: Order Comment: Susan swanson Type: URINE SPECIMEN Ordering Facility: [facility] Address: [address] [place] [address] Result Comment: Ofe mated Glomerular Filtration Rate [...] GFR. Performed By: #### 2 4356-8 #### [facility] CLIA [id number] [address] [place] [address] [place] Glucose [Mass/Vol] 96 mg/dL Normal 74-99 [facility] Comment on above: Order Comment: Susan swanson Type: URINE SPECIMEN Ordering Facility: [facility] Address: [address] [place] [address] Result Comment: The [place] Diabetes Association (ADA) provides guidance for cutoff [...] Standards of Medical Care in Diabetes 2016, [place] [employer]. Diabetes Care. 2016.39(Suppl 1). Performed By: #### 2 4356-8 #### [facility] CLIA [id number] [address] [place] [address] [place] Potassium [Moles/Vol] 4.2 mmol/L Normal 3.7-5.1 [facility] Comment on above: Order Comment: Speci men Type: URINE SPECIMEN Ordering Facility: [facility] Address: [address] [place] [address] Performed By: #### 2 4356-8 #### [facility] CLIA [id number] [address] [place] [address] [place] Protein [Mass/Vol] 7.4 g/dL Normal 6.3-8.0 [facility] Comment on above: Order Comment: Speci men Type: URINE SPECIMEN Ordering Facility: [facility] Address: [address] [place] [address] Performed By: #### 2 4356-8 #### [facility] CLIA [id number] [address] [place] [address] [place] Sodium [Moles/Vol] 141 mmol/L Normal 136-144 [facility] Comment on above: Order Comment: Speci men Type: URINE SPECIMEN Ordering Facility: [facility] Address: [address] [place] [address] Performed By: #### 2 4356-8 #### [facility] CLIA [id number] [address] [place] [address] [place] Urea nitrogen [Mass/Vol] 22 mg/dL Normal 9-24 [facility] Comment on above: Order Comment: Speci men Type: URINE SPECIMEN Ordering Facility: [facility] Address: [address] [place] [address] Performed By: #### 2 4356-8 #### [facility] CLIA [id number] [address] [place] [address] [place] HbA1c (Bld)on 04-19-2024 Average glucose Estimated from glycated hemoglobin (Bld) [Mass/Vol] 108 mg/dL [facility] Comment on above: eAG: (Estimated aver age glucose) is a calculated value from HgbA1c and is personal banking representative of the average blood glucose level in the last 2-3 month period. HbA1c (Bld) [Mass fraction] 5.4 % 4.3 - 5.6 % [facility] Comment on above: [place] Diabetes As sociation guidelines indicate that patients with HgbA1c in the range 5.7-6.4% are at increased risk for development of diabetes, and intervention by lifestyle modification may be beneficial. HgbA1c greater or equal to 6.5% is considered diagnostic of diabetes. [facility] Average glucose Estimated from glycated hemoglobin (Bld) [Mass/Vol] 108 mg/dL Normal [facility] Comment on above: Order Comment: Susan swanson Type: BLOOD SPECIMEN Ordering Facility: [facility] Address: [address] [place] [address] Result Comment: eAG: (Estimated average glucose) is a calculated value from HgbA1c and is personal banking representative of the average blood glucose level in the last 2-3 month period. Performed By: #### 5 5454-3 #### [facility] CLIA [id number] [address] [place] [address] [place] HbA1c (Bld) [Mass fraction] 5.4 % Normal 4.3-5.6 [facility] Comment on above: Order Comment: Susan swanson Type: BLOOD SPECIMEN Ordering Facility: [facility] Address: [address] [place] [address] Result Comment: [place] Diabetes Association guidelines indicate that patients with HgbA1c in the range 5.7-6.4% are at increased risk for development of diabetes, and intervention by lifestyle modification may be beneficial. HgbA1c greater or equal to 6.5% is considered diagnostic of diabetes. Performed By: #### 5 5454-3 #### [facility] CLIA [id number] [address] [place] [address] [place] LIPID PANEL, NONFASTINGon Cholesterol [Mass/Vol] 258 mg/dL High <200 [facility] Comment on above: Order Comment: Speci men Type: URINE SPECIMEN Ordering Facility: [facility] Address: [address] [place] [address] Result Comment: <200 mg/dL, Desirable 200-239 mg/dL, Borderline high >239 mg/dL, High Performed By: #### 2 4356-8 #### [facility] CLIA [id number] [address] [place] [address] [place] HDL CHOLESTEROL, NF 57 mg/dL Normal >39 [facility] Comment on above: Order Comment: Speci men Type: URINE SPECIMEN Ordering Facility: [facility] Address: [address] [place] [address] Result Comment: 40-5 9 mg/dL, Acceptable >59 mg/dL, High: Negative risk factor for coronary heart disease <40 mg/dL, Low: Positive risk factor for coronary heart disease Performed By: #### 2 4356-8 #### [facility] CLIA [id number] [address] [place] [address] [place] LDL CHOLESTEROL, NF 179 mg/dL High <100 [facility] Comment on above: Order Comment: Speci men Type: URINE SPECIMEN Ordering Facility: [facility] Address: [address] [place] [address] Result Comment: <100 mg/dL, Optimal 100-129 mg/dL, Near optimal/above optimal 130-159 mg/dL, Borderline high 160-189 mg/dL, High >189 mg/dL, Very high Secondary prevention optimal LDL Cholesterol levels are recommended to be < 70 mg/dL Performed By: #### 2 4356-8 #### [facility] CLIA [id number] [address] [place] [address] [place] LDL/HDL RATIO, NF 3.14 mg/dL High <2.54 [facility] Comment on above: Order Comment: Speci men Type: URINE SPECIMEN Ordering Facility: [facility] Address: [address] [place] [address] Result Comment: Yohan mayers: 1. National Cholesterol Education Program ATP III Guideline At-A-Glance Quick Desk Reference: National Heart, Lung, and Blood [place]. National Institutes of Health. 2001: NIH Publication No. 01-3305. 2. An International Atherosclerosis Society position paper: global recommendations for the management of dyslipidemia: executive summary, Atherosclerosis. 2014: 232(2):410-413. Performed By: #### 2 4356-8 #### [facility] CLIA [id number] [address] [place] [address] [place] NON HDL CHOL, NF 201 mg/dL High <130 [facility] Comment on above: Order Comment: Speci men Type: URINE SPECIMEN Ordering Facility: [facility] Address: [address] [place] [address] Result Comment: <130 mg/dL, Optimal 130-159 mg/dL, Near optimal/above optimal 160-189 mg/dL, Borderline high 190-219 mg/dL, High >219 mg/dL, Very high Secondary prevention optimal non HDL Cholesterol levels are recommended to be <100 mg/dL Performed By: #### 2 4356-8 #### [facility] CLIA [id number] [address] [place] [address] [place] T CHOL/HDL RATIO NF 4.53 mg/dL Normal <5.10 [facility] Comment on above: Order Comment: Speci men Type: URINE SPECIMEN Ordering Facility: [facility] Address: [address] [place] [address] Performed By: #### 2 4356-8 #### [facility] CLIA [id number] [address] [place] [address] [place] TRIGLYCERIDES, NF 110 mg/dL Normal <150 [facility] Comment on above: Order Comment: Speci men Type: URINE SPECIMEN Ordering Facility: [facility] Address: [address] [place] [address] Result Comment: <150 mg/dL, Normal 150-199 mg/dL, Borderline high 200-499 mg/dL, High >499 mg/dL, Very high Performed By: #### 2 4356-8 #### [facility] CLIA [id number] [address] [place] [address] [place] VLDL CHOLESTEROL, NF 22 mg/dL Normal <30 [facility] Comment on above: Order Comment: Speci men Type: URINE SPECIMEN Ordering Facility: [facility] Address: [address] [place] [address] Performed By: #### 2 4356-8 #### [facility] CLIA [id number] [address] [place] [address] [place] TSH SerPl-aCncon 04-19-2024 TSH Qn 2.920 m[IU]/L Normal 0.270-4.200 [facility] Comment on above: Order Comment: Speci men Type: URINE SPECIMEN Ordering Facility: [facility] Address: [address] [place] [address] Performed By: #### 2 4356-8 #### [facility] CLIA [id number] [address] [place] [address] [place] Urinalysis complete panel (U )on 04-19-2024 Bacteria LM.HPF (Urine sed) [#/Area] Negative Negative /HPF [facility] Bilirubin Ql (U) Negative Negative [facility] Clarity (Unsp spec) Clear Clear [facility] Color (U) Yellow Yellow [facility] Epithelial cells LM.HPF (Urine sed) [#/Area] None Seen /HPF [facility] Glucose Test strip (U) [Mass/Vol] Negative Negative [facility] Hemoglobin Ql (U) Negative Negative [facility] Hyaline casts (Urine sed) [#/Area] 0 /[LPF] 0 /LPF [facility] Ketones Ql (U) Negative Negative [facility] Leukocyte esterase Test strip Ql (U) Negative Negative [facility] Nitrite Ql (U) Negative Negative [facility] pH (U) 5.5 [pH] NINF - 8.5 [facility] Protein (U) [Mass/Vol] Negative Negative Cl [facility] RBC LM.HPF (Urine sed) [#/Area] 0-2 /HPF 0-2 /HPF [facility] Specific gravity (U) [Rel density] 1.026 1.005 - 1.030 [facility] Urobilinogen Ql (U) 0.2 EU/dL 0.2-1.0 EU/dL [facility] WBC LM.HPF (Urine sed) [#/Area] 0-5 /HPF 0-5 /HPF [facility] This test was develo ped and its performance characteristics determined by [facility]'s [facility] Pathology and Laboratory Medicine [place] ([facility]). It has not been cleared or approved by the FDA. -[facility] is regulated under CLIA as qualified to perform high-complexity testing. This test is used for clinical purposes. It should not be regarded as investigational or for research. [facility] Bacteria LM.HPF (Urine sed) [#/Area] Negative Normal Negative [facility] Comment on above: Order Comment: Speci men Type: URINE SPECIMEN Ordering Facility: [facility] Address: [address] [place] [address] Performed By: #### 2 4356-8 #### [facility] CLIA [id number] [address] [place] [address] [place] Bilirubin Ql (U) Negative Normal Negative [facility] Comment on above: Order Comment: Speci men Type: URINE SPECIMEN Ordering Facility: [facility] Address: [address] [place] [address] Performed By: #### 2 4356-8 #### [facility] CLIA [id number] [address] [place] [address] [place] Clarity (Unsp spec) Clear Normal [facility] Comment on above: Order Comment: Speci men Type: URINE SPECIMEN Ordering Facility: [facility] Address: [address] [place] [address] Performed By: #### 2 4356-8 #### [facility] CLIA [id number] [address] [place] [address] [place] Color (U) Yellow Normal Yellow [facility] Comment on above: Order Comment: Speci men Type: URINE SPECIMEN Ordering Facility: [facility] Address: [address] [place] [address] Performed By: #### 2 4356-8 #### [facility] CLIA [id number] [address] [place] [address] [place] Epithelial cells LM.HPF (Urine sed) [#/Area] None Seen Normal [facility] Comment on above: Order Comment: Speci men Type: URINE SPECIMEN Ordering Facility: [facility] Address: [address] [place] [address] Performed By: #### 2 4356-8 #### [facility] CLIA [id number] [address] [place] [address] [place] Glucose Test strip (U) [Mass/Vol] Negative Normal Negative [facility] Comment on above: Order Comment: Speci men Type: URINE SPECIMEN Ordering Facility: [facility] Address: [address] [place] [address] Performed By: #### 2 4356-8 #### [facility] CLIA [id number] [address] [place] [address] [place] Hemoglobin Ql (U) Negative Normal Negative [facility] Comment on above: Order Comment: Speci men Type: URINE SPECIMEN Ordering Facility: [facility] Address: [address] [place] [address] Performed By: #### 2 4356-8 #### [facility] CLIA [id number] [address] [place] [address] [place] Hyaline casts (Urine sed) [#/Area] 0 /[LPF] Normal 0 /LPF [facility] Comment on above: Order Comment: Speci men Type: URINE SPECIMEN Ordering Facility: [facility] Address: [address] [place] [address] Performed By: #### 2 4356-8 #### [facility] CLIA [id number] [address] [place] [address] [place] Ketones Ql (U) Negative Normal Negative [facility] Comment on above: Order Comment: Speci men Type: URINE SPECIMEN Ordering Facility: [facility] Address: [address] [place] [address] Performed By: #### 2 4356-8 #### [facility] CLIA [id number] [address] [place] [address] [place] Leukocyte esterase Test strip Ql (U) Negative Normal Negative [facility] Comment on above: Order Comment: Speci men Type: URINE SPECIMEN Ordering Facility: [facility] Address: [address] [place] [address] Performed By: #### 2 4356-8 #### [facility] CLIA [id number] [address] [place] [address] [place] Nitrite Ql (U) Negative Normal Negative [facility] Comment on above: Order Comment: Speci men Type: URINE SPECIMEN Ordering Facility: [facility] Address: [address] [place] [address] Performed By: #### 2 4356-8 #### [facility] CLIA [id number] [address] [place] [address] [place] pH (U) 5.5 [pH] Normal <8.5 [facility] Comment on above: Order Comment: Speci men Type: URINE SPECIMEN Ordering Facility: [facility] Address: [address] [place] [address] Performed By: #### 2 4356-8 #### [facility] CLIA [id number] [address] [place], [place] [id number] [place] Protein (U) [Mass/Vol] Negative Normal Negative [facility] Comment on above: Order Comment: Speci men Type: URINE SPECIMEN Ordering Facility: [facility] Address: [address] [place] [address] Performed By: #### 2 4356-8 #### [facility] CLIA [id number] [address] [place] [address] [place] RBC LM.HPF (Urine sed) [#/Area] 0-2 /HPF Normal 0-2 /HPF [facility] Comment on above: Order Comment: Speci men Type: URINE SPECIMEN Ordering Facility: [facility] Address: [address] [place] [address] Performed By: #### 2 4356-8 #### [facility] CLIA [id number] [address] [place] [address] [place] Specific gravity (U) [Rel density] 1.026 Normal 1.005-1.030 [facility] Comment on above: Order Comment: Speci men Type: URINE SPECIMEN Ordering Facility: [facility] Address: [address] [place] [address] Performed By: #### 2 4356-8 #### [facility] CLIA [id number] [address] [place] [address] [place] Urobilinogen Ql (U) 0.2 EU/dL Normal 0.2-1.0 EU/dL [facility] Comment on above: Order Comment: Speci men Type: URINE SPECIMEN Ordering Facility: [facility] Address: [address] [place] [address] Performed By: #### 2 4356-8 #### [facility] CLIA [id number] [address] [place] [address] [place] WBC LM.HPF (Urine sed) [#/Area] 0-5 /HPF Normal 0-5 /HPF [facility] Comment on above: Order Comment: Speci men Type: URINE SPECIMEN Ordering Facility: [facility] Address: [address] [place] [address] Performed By: #### 2 4356-8 #### [facility] CLIA [id number] [address] [place] [address] [place] HbA1c (Bld)on 03-31-2023 Average glucose Estimated from glycated hemoglobin (Bld) [Mass/Vol] 117 mg/dL [facility] HbA1c (Bld) [Mass fraction] 5.7 % High 4.3 - 5.6 % [facility] MRI BRAIN WO IVCONon 023 [facility] CBC W Auto Differential pane l (Bld)on 02-02-2023 Basophils (Bld) [#/Vol] 0.05 10*3/uL <0.11 k/uL [facility] Basophils/100 WBC (Bld) 0.9 % [facility] Differential cell count method Nom (Bld) Auto [facility] Eosinophils (Bld) [#/Vol] 0.08 10*3/uL <0.46 k/uL [facility] Eosinophils/100 WBC (Bld) 1.4 % [facility] Erythrocyte distribution width (RBC) [Ratio] 13.9 % 11.5 - 15.0 % [facility] Hematocrit (Bld) [Volume fraction] 43.6 % 39.0 - 51.0 % [facility] Hemoglobin (Bld) [Mass/Vol] 14.2 g/dL 13.0 - 17.0 g/dL [facility] Immature granulocytes (Bld) [#/Vol] <0.10 k/uL [facility] Immature granulocytes/100 WBC (Bld) 0.2 % [facility] Lymphocytes (Bld) [#/Vol] 1.12 10*3/uL 1.00 - 4.00 k/uL [facility] Lymphocytes/100 WBC (Bld) 19.9 % [facility] MCH (RBC) [Entitic mass] 29.3 pg 26.0 - 34.0 pg [facility] MCHC (RBC) [Mass/Vol] 32.6 g/dL 30.5 - 36.0 g/dL [facility] MCV (RBC) [Entitic vol] 90.1 fL 80.0 - 100.0 fL [facility] Monocytes (Bld) [#/Vol] 0.51 10*3/uL <0.87 k/uL [facility] Monocytes/100 WBC (Bld) 9.1 % [facility] Neutrophils (Bld) [#/Vol] 3.85 10*3/uL 1.45 - 7.50 k/uL [facility] Neutrophils/100 WBC (Bld) 68.5 % [facility] Nucleated RBC (Bld) [#/Vol] <0.01 k/uL [facility] Nucleated RBC/100 WBC (Bld) [Ratio] 0.0 /100 WBC [facility] Platelet mean volume (Bld) [Entitic vol] 9.2 fL 9.0 - 12.7 fL [facility] Platelets (Bld) [#/Vol] 285 10*3/uL 150 - 400 k/uL [facility] RBC (Bld) [#/Vol] 4.84 10*6/uL 4.20 - 6.0 0 m/uL [facility] WBC (Bld) [#/Vol] 5.62 10*3/uL 3.70 - 11.00 k/uL [facility] OVA + PARA MICROSCOPICon Ova and parasites identified LM Nom (Unsp spec) No Parasites Seen [facility] Gastrointestinal pathogens i dentified ILIANA+probe Nom (Stl)on 05-20-2022 Campylobacter sp DNA ILIANA+probe Nom (Unsp spec) Not detected Not Detected [facility] Salmonella sp DNA ILIANA+probe Ql (Unsp spec) Not detected Not Detected [facility] Shiga toxin stx gene ILIANA+probe Nom (Unsp spec) Not detected Not Detected [facility] Shigella sp DNA ILIANA+probe Ql (Unsp spec) Not detected Not Detected [facility] C. DIFFICILE TOXIN BY EIAon 05-19-2022 C. difficile toxin A+B IA Ql (Stl) Detected Abnormal Negative for C. difficile toxin [facility] CDIFF PCR W/RFLX EIA IF POSI TIVEon 05-19-2022 C. difficile toxin genes ILIANA+probe Ql (Stl) Positive Abnormal Negative for C. difficile toxin by PCR [facility] XR OR RETROGRADE PYELOGRAMon 05-09-2022 XR OR [...] partially opacified on subsequent images and demonstrates lxim-ea-gknamkxy hydronephrosis. Later images demonstrate placement of a left ureteral stent. Left ureteral stone seen on CT is not definitely visible on the submitted images. IMPRESSION: Images from a left retrograde pyelogram demonstrate hydronephrosis and placement of a ureteral stent. Please correlate with Urology procedure note. [facility] Workstation ID: [id number] Dictated by: HERMILA WARREN on WedMay 12, 2022 8:05:21 AM EST Transcribed by: GUERITA JARQUIN on WedMay 12, 2022 8:45:33 AM EST Finalized by: HERMILA WARREN on WedMay 12, 2022 9:12:43 AM EST Normal [facility] Comment on above: Order Comment: Injur y/Trauma or Illness?:Illness/Other How long have you had these symptoms (acute/chronic)?:Unknown Reason for exam?:left stent placement Type of Exam?:Unknown Additional signs and symptoms?: Fluoro time in minutes:.96 Fluoro dose in mGy?:10.67 Vital Signs Date Time Vital Sign Value Performing Clinician Vernon blackmon 02-05-2025 13:34-0400 Body mass index (BMI) [Ratio] 22.78 kg/m2 Ned Munoz APRN.CNP Work Phone: [facility] 02-05-2025 13:34-0400 Body weight 71 kg Ned Munoz APRN.CNP Work Phone: [facility] 02-05-2025 13:34-0400 Diastolic blood pressure 87 mm[Hg] Ned Munoz APRN.CNP Work Phone: [facility] 02-05-2025 13:34-0400 Heart rate 90 /min Ned Munoz APRN.CNP Work Phone: [facility] 02-05-2025 13:34-0400 Systolic blood pressure 138 mm[Hg] Ned Munoz APRN.CNP Work Phone: [facility] 11-20-2024 11:03-0400 Body mass index (BMI) [Ratio] 23.23 kg/m2 Yrn Holland MD Work Phone: [facility] 11-20-2024 11:03-0400 Body weight 72.39 kg Yrn Holland MD Work Phone: [facility] 11-20-2024 11:03-0400 Diastolic blood pressure 74 mm[Hg] Yrn Holland MD Work Phone: [facility] 11-20-2024 11:03-0400 Heart rate 98 /min Yrn Holland MD Work Phone: [facility] 11-20-2024 11:03-0400 Respiratory rate 16 /min Yrn Holland MD Work Phone: [facility] 11-20-2024 11:03-0400 Systolic blood pressure 118 mm[Hg] Yrn Holland MD Work Phone: [facility] 05-10-2024 10:12-0500 Diastolic blood pressure 77 mm[Hg] Felecia HILARIO-C Work Phone: [facility] 05-10-2024 10:12-0500 Systolic blood pressure 117 mm[Hg] Felecia HILARIO-C Work Phone: [facility] 05-10-2024 10:07-0500 Heart rate 89 /min Felecia Quiroz PA-C Work Phone: [facility] 05-10-2024 09:56-0500 Body mass index (BMI) [Ratio] 25.33 kg/m2 Felecia HILARIO-C Work Phone: [facility] 05-10-2024 09:56-0500 Body temperature 97.11 [degF] Felecia HILARIO-C Work Phone: [facility] 05-10-2024 09:56-0500 Body weight 78.93 kg Felecia Quiroz PA-C Work Phone: [facility] 05-10-2024 09:56-0500 Respiratory rate 18 /min Felecia Quiroz PA-C Work Phone: [facility] 05-10-2024 09:56-0500 SaO2% (BldA) [Mass fraction] 99 % Felecia Quiroz PA-C Work Phone: [facility] 04-19-2024 15:10-0500 Diastolic blood pressure 94 mm[Hg] Yrn Holland MD Work Phone: [facility] 04-19-2024 15:10-0500 Systolic blood pressure 156 mm[Hg] Yrn Holland MD Work Phone: [facility] 04-19-2024 14:16-0500 Body height 176.5 cm Yrn Holland MD Work Phone: [facility] 04-19-2024 14:16-0500 Body mass index (BMI) [Ratio] 24.89 kg/m2 Yrn Holland MD Work Phone: [facility] 04-19-2024 14:16-0500 Body weight 77.56 kg Yrn Holland MD Work Phone: [facility] 04-19-2024 14:16-0500 Heart rate 88 /min Yrn Holland MD Work Phone: [facility] 04-19-2024 14:16-0500 Respiratory rate 18 /min Yrn Holland MD Work Phone: [facility] 03-31-2023 13:51-0500 Diastolic blood pressure 82 mm[Hg] Yrn Holland MD Work Phone: [facility] 03-31-2023 13:51-0500 Systolic blood pressure 128 mm[Hg] Yrn Holland MD Work Phone: [facility] 03-31-2023 13:02-0500 Body height 176.5 cm Yrn Holland MD Work Phone: [facility] 03-31-2023 13:02-0500 Body weight 76.66 kg Yrn Holland MD Work Phone: [facility] 03-31-2023 13:02-0500 Heart rate 86 /min Yrn Holland MD Work Phone: [facility] 03-31-2023 13:02-0500 Respiratory rate 18 /min Yrn Holland MD Work Phone: [facility] 02-02-2023 15:14-0400 Diastolic blood pressure 84 mm[Hg] Yrn Holland MD Work Phone: [facility] 02-02-2023 15:14-0400 Systolic blood pressure 144 mm[Hg] Yrn Holland MD Work Phone: [facility] 02-02-2023 14:33-0400 Body weight 75.3 kg Yrn Holland MD Work Phone: [facility] 02-02-2023 14:33-0400 Heart rate 82 /min Yrn Holland MD Work Phone: [facility] 02-02-2023 14:33-0400 Respiratory rate 18 /min Yrn Holland MD Work Phone: [facility] 07-15-2022 09:49-0500 Body temperature 97.9 [degF] Amalia Athy PA-C Work Phone: [facility] 07-15-2022 09:49-0500 Body weight 74.66 kg Amalia Athy PA-C Work Phone: [facility] 07-15-2022 09:49-0500 Diastolic blood pressure 78 mm[Hg] Amalia Athy PA-C Work Phone: [facility] 07-15-2022 09:49-0500 Heart rate 99 /min Amalia Athy PA-C Work Phone: [facility] 07-15-2022 09:49-0500 Respiratory rate 18 /min Amalia Athy PA-C Work Phone: [facility] 07-15-2022 09:49-0500 SaO2% (BldA) [Mass fraction] 97 % Amalia HILARIO-Danielle Work Phone: [facility] 07-15-2022 09:49-0500 Systolic blood pressure 112 mm[Hg] Amalia Gonzales PA-C Work Phone: [facility] 05-18-2022 10:35-0500 Body temperature 98.6 [degF] Shirley Lemuel OUTPATIENT PSYCHIATRIST.LIDDING MACHINE OPERATOR Work Phone: [facility] 05-18-2022 10:35-0500 Body weight 76.66 kg Shirley Lemuel OUTPATIENT PSYCHIATRIST.LIDDING MACHINE OPERATOR Work Phone: [facility] 05-18-2022 10:35-0500 Diastolic blood pressure 82 mm[Hg] Shirley Lemuel OUTPATIENT PSYCHIATRIST.LIDDING MACHINE OPERATOR Work Phone: [facility] 05-18-2022 10:35-0500 Heart rate 100 /min Shirley Lemuel OUTPATIENT PSYCHIATRIST.LIDDING MACHINE OPERATOR Work Phone: [facility] 05-18-2022 10:35-0500 Respiratory rate 21 /min Shirley Lemuel OUTPATIENT PSYCHIATRIST.LIDDING MACHINE OPERATOR Work Phone: [facility] 05-18-2022 10:35-0500 SaO2% (BldA) [Mass fraction] 99 % Shirley Lemuel OUTPATIENT PSYCHIATRIST.LIDDING MACHINE OPERATOR Work Phone: [facility] 05-18-2022 10:35-0500 Systolic blood pressure 130 mm[Hg] Shirley Lemuel OUTPATIENT PSYCHIATRIST.LIDDING MACHINE OPERATOR Work Phone: [facility] 03-27-2022 12:21-0400 Diastolic blood pressure 82 mm[Hg] Yrn Holland MD Work Phone: [facility] 03-27-2022 12:21-0400 Systolic blood pressure 132 mm[Hg] Yrn Holland MD Work Phone: [facility] 03-27-2022 12:00-0400 Body height 176.5 cm Yrn Holland MD Work Phone: [facility] 03-27-2022 12:00-0400 Body weight 80.74 kg Yrn Holland MD Work Phone: [facility] 03-27-2022 12:00-0400 Heart rate 90 /min Yrn Holland MD Work Phone: [facility] 03-27-2022 12:00-0400 Respiratory rate 14 /min Yrn Holland MD Work Phone: [facility] Encounters Encounter Date Encounter Type Care Provider Facility Start: 03-21-2025 End: 03-21-2025 ambulatory Mahesh Najera Facility:[facility] Start: 02-07-2025 End: 02-07-2025 Chart abstracting [...] Start: 12-20-2024 End: 12-20-2024 ambulatory YRN HOLLAND Facility:[facility] Start: 11-23-2024 End: 01-19-2025 Telephone encounter Yrn Holland MD Work Phone: [facility] Comment on above: Appointment Start: 11-22-2024 End: 11-23-2024 Follow-up encounter Yrn Holland MD Work Phone: [facility] Comment on above: Results Start: 11-21-2024 End: 11-21-2024 Telephone encounter Yrn Holland MD Work Phone: [facility] Comment on above: Results Start: 11-21-2024 ambulatory YRN HOLLAND Facili ty:[facility] Start: 11-21-2024 End: 11-21-2024 Subsequent hospital visit by physician Graciela [facility] Wstr (I-Stat) Work Phone: Cat Scan Comment [...] Start: 11-20-2024 End: 11-20-2024 ambulatory YRN HOLLAND Facility:[facility] Start: 10-30-2024 End: 10-30-2024 Telephone encounter Yrn Holland MD Work Phone: [facility] Comment on above: Patient Question Start: 09-25-2024 End: 09-25-2024 ambulatory Tierney Durand RN Work Phone: Client Support Consultant Management Comment on above: Primary Care Coordin ator- Other Start: 08-16-2024 End: 08-16-2024 ambulatory Tahir Rojas MA [facility] Start: 08-16-2024 End: 08-16-2024 Patient encounter procedure Tahir Rojas MA [facility] Comment on above: Population Health Na vigation Outreach ([employer] high risk attempt 2) Start: 08-10-2024 End: 08-10-2024 ambulatory Dakota Stahl MA [facility] Start: 08-10-2024 End: 08-10-2024 Patient encounter procedure Dakota Stahl MA [facility] Comment on above: Population Health Na vigation Outreach ([employer] High Risk- Attempt 1 ) Start: 07-25-2024 End: 07-25-2024 Chart abstracting Yrn Holland MD Work Phone: [facility] Start: 07-24-2024 End: 07-24-2024 Chart abstracting Yrn Holland MD Work Phone: [facility] Comment on above: Outside Cjay-Xcc-XHS Ordered Start: 07-24-2024 End: 07-24-2024 ambulatory Yrn Holland Facility:[facility] Start: 05-11-2024 End: 05-11-2024 Telephone encounter Yrn Holland MD Work Phone: [facility] Comment on above: Patient Question Start: 05-10-2024 End: 05-10-2024 ambulatory FELECIA QUIROZ Facility:[facility] Start: 05-10-2024 End: 05-10-2024 Office outpatient visit 10 minutes Felecia Quiroz PA-C Work Phone: [facility] Comment on above: Elevated blood press ure reading without diagnosis of hypertension (Primary Dx) Start: 04-20-2024 End: 04-24-2024 Telephone encounter Yrn Holland MD Work Phone: [facility] Comment on above: Results Start: 04-19-2024 End: 04-19-2024 ambulatory YRN HOLLAND Facility:[facility] Start: 04-19-2024 End: 04-19-2024 Patient encounter procedure Yrn Holland MD Work Phone: [facility] Comment on above: Encounter for Medica re [...] encounter Yrn Holland MD Work Phone: [facility] Comment on above: Question on a vaccin e Start: 07-14-2023 Chart abstracting Yrn stevenson MD Work Phone: [facility] Comment on above: Outside Urology Outside [id number] Ordered (PSA) Start: 05-12-2023 ambulatory Yrn kennedy MD Work Phone: [facility] Comment on above: Covid Positive Start: 04-01-2023 Telephone encounter Yrn Holland MD Work Phone: [facility] Comment on above: Results Start: 03-31-2023 End: 03-31-2023 Patient encounter procedure Yrn Holland MD Work Phone: [facility] Comment on above: Encounter for Medica re annual wellness exam (Primary Dx); Dyslipidemia; Elevated hemoglobin A1c; Major depressive disorder, recurrent episode, severe with anxious distress (HCC); Severe anxiety; Oropharyngeal dysphagia; Benign non-nodular prostatic hyperplasia without lower urinary tract symptoms; Bilateral carotid artery stenosis; Advance directive discussed with patient; Encounter for immunization Start: 03-10-2023 Telephone encounter Yrn Holland MD Work Phone: [facility] Comment on above: Results Start: 03-04-2023 End: 03-04-2023 Subsequent hospital visit by physician [employer] [facility] Wstr (I-Stat/1.5t) Work Phone: Radiology Comment on above: Dementia without beh avioral disturbance (HCC) [F03.90] Start: 03-01-2023 ambulatory Renetta Jones RN Work Phone: Client Support Consultant Management Start: 02-25-2023 Telephone encounter Yrn Holland MD Work Phone: [facility] Comment on above: Authorization for MR I and Swallowing Test Patient Update Start: 02-04-2023 Telephone encounter Yrn Holland MD Work Phone: [facility] Comment on above: Results Start: 02-02-2023 End: 02-02-2023 Patient encounter procedure Yrn Holland MD Work Phone: [facility] Comment on above: Dementia without beh avioral disturbance (HCC) (Primary Dx); Memory difficulties; Esophageal dysphagia Start: 07-15-2022 End: 07-15-2022 Patient encounter procedure Amalia Gonzales PA-C Work Phone: [facility] Comment on above: Diarrhea, unspecifie d type (Primary Dx) Start: 07-02-2022 Telephone encounter Felecia cano PA-C Work Phone: [facility] Comment on above: Results Start: 2022 Telephone encounter Felecia Cristina cano PA-C Work Phone: [facility] Comment on above: Results Start: 05-19-2022 Telephone encounter Yrn Holland MD Work Phone: [facility] Comment on above: Patient Question Start: 05-18-2022 End: 05-18-2022 Patient encounter procedure Shirley Hdez LIDDING MACHINE OPERATOR Work Phone: [facility] Comment on above: Diarrhea, unspecifie d type (Primary Dx) Start: 05-15-2022 ambulatory Yrn kennedy MD Work Phone: [facility] Comment on above: Diarrhea Start: 05-09-2022 End: 05-09-2022 Emergency department patient visit [facility] Start: 05-04-2022 ambulatory Yrn kennedy MD Work Phone: [facility] Comment on above: Back Pain Start: 04-28-2022 End: 04-28-2022 Nursing evaluation of patient and report Mi Nurse Work Phone: [facility] Comment on above: Encounter for immuni zation (Primary Dx) Start: 04-03-2022 Telephone encounter Russ fountain MD Work Phone: [facility] Comment on above: Procedure; Insurance Inquiry Start: 03-27-2022 End: 03-27-2022 Patient encounter procedure Yrn Holland MD Work Phone: [facility] Comment on above: Medicare annual well [...] Start: 10-09-2021 ambulatory Ned Portillo (Ps s) [facility] Comment on above: Population Health Na vigation Outreach ([employer] Care Gaps) Start: 10-05-2021 ambulatory Yrn kennedy MD Work Phone: [facility] Start: 09-16-2021 Telephone encounter Yrn Holland MD Work Phone: [facility] Comment on above: Patient Update (medi cation update) Start: 02-26-2021 Patient encounter procedure Yrn Holland MD Work Phone: [facility] Work Phone: Procedures Date Procedure Procedure Detail Performing Clinician Start: 02-05-2025 Urnls dip stick/tabl et rgnt auto w/o microscopy Ned Munoz OUTPATIENT PSYCHIATRIST.LIDDING MACHINE OPERATOR Work Phone: Start: 11-21-2024 Ct head/brain w/o [...] c acid clostridium amp probe Shirley Hdez OUTPATIENT PSYCHIATRIST.LIDDING MACHINE OPERATOR Work Phone: Start: 05-18-2022 Ova&parasites direct smears concentration & id Shirley Hdez OUTPATIENT PSYCHIATRIST.LIDDING MACHINE OPERATOR Work Phone: Start: 03-27-2022 INFLUENZA SEASONAL QUADRIVALENT HIGH DOSE AGE 65+ Yrn Holland MD Work Phone: Start: 03-27-2022 PFIZER-[employer] COVI D-19 BIVALENT BOOSTER VACCINE, AGE 12+ YR Yrn Holland MD Work Phone: Start: 03-20-2022 Lipid 1996 panel - S [place] or Plasma Yrn Holland MD Work Phone: Start: 01-14-2018 Colonoscopy Yrn stevenson MD Work Phone: Plan of Treatment Date Care Activity Detail Author Start: 07-26-2033 Urine microalbumin profile DTaP,Tdap,Td Vaccine (4 - Td or Tdap) [facility] Start: 2030 RSV Vaccine (1 - 1-d ose 75+ series) RSV Vaccine (1 - 1-dose 75+ series) [facility] Start: 04-19-2029 Lipid panel Lipid Screening [facility] Start: 07-13-2028 Prostate specific antigen measurement Prostate Cancer Screening Discussion [facility] Start: 03-31-2028 Lipid 1996 panel - S madison or Plasma Lipid Screening [facility] Start: 03-31-2028 Lipid panel Lipid Screening [facility] Start: 01-15-2028 Colonoscopy COLONOSCOPY [facility] Start: 01-15-2028 COLORECTAL CANCER SCREENING COLORECTAL CANCER SCREENING [facility] Start: 01-15-2028 Screening for malign ant neoplasm of colon [facility] Start: 11-21-2027 Diabetes Screening Diabetes Screenin g [facility] Start: 04-19-2027 Diabetes Screening Diabetes Screenin g [facility] Start: 03-20-2027 Lipid 1996 panel - S madison or Plasma Lipid Screening [facility] Start: 03-20-2027 LIPID SCREEN LIPID SCREEN [facility] Start: 03-20-2027 PROSTATE CANCER SCREENING DISCUSSION PROSTATE CANCER SCREENING DISCUSSION [facility] Start: 03-20-2027 Prostate specific antigen measurement Prostate Cancer Screening Discussion [facility] Start: 03-31-2026 Diabetes Screening Diabetes Screenin g [facility] Start: 02-26-2026 LIPID SCREEN LIPID SCREEN [facility] Start: 02-26-2026 PROSTATE CANCER SCREENING DISCUSSION PROSTATE CANCER SCREENING DISCUSSION [facility] Start: 02-02-2026 Diabetes Screening Diabetes Screenin g [facility] Start: 07-01-2025 DIABETES SCREEN DIABETES SCREEN [facility] Start: 07-01-2025 Diabetes Screening Diabetes Screenin g [facility] Start: 06-24-2025 DIABETES SCREEN DIABETES SCREEN [facility] Start: 04-04-2025 End: 04-04-2025 Patient encounter procedure Family [facility]i Comment on above: Medicare wellness Medicare wellness [facility] and Care gap closure Start: 03-20-2025 DIABETES SCREEN DIABETES SCREEN [facility] Start: 02-05-2025 End: 05-07-2025 Creatinine and Glomerular filtration rate.predicted panel - Serum, Plasma or Blood CREATININE BLD Lab Routine Periumbilical abdominal pain Lower abdominal pain Expected: 02/05/2025, Expires: 05/07/2025 [facility] Comment on above: Expected: 02/05/2025 , Expires: 05/07/2025 Start: 01-22-2025 Influenza vaccination Influenza Vacc ine (#1) [facility] Start: 12-20-2024 End: 12-20-2024 Patient encounter procedure 12/20/2024 12:30 PM EDT Office Visit [facility] [address] [place] [address] Dx: Transient alteration of awareness [R40.4]; Transient global amnesia [G45.4]; Bilateral carotid artery stenosis [I65.23] [facility] Comment on above: Dx: Transient altera tion of awareness [R40.4]; Transient global amnesia [G45.4]; Bilateral carotid artery stenosis [I65.23] Start: 11-21-2024 End: 11-21-2024 Patient encounter procedure 11/21/2024 8:00 AM EDT Appointment Cat Scan [address] [place] [address] Transient alteration of awareness [R40.4]; Transient global amnesia [G45.4] Cat Scan Comment on above: Transient alteration of awareness [R40.4]; Transient global amnesia [G45.4] Start: 11-20-2024 End: 02-19-2025 HE[employer] SCRN BL [facility] Work Phone: Comment on above: Expected: 11/20/2024 , Expires: 02/19/2025 Start: 11-20-2024 End: 02-19-2025 QUANTITATIVE TOXICOLOGY PANEL, URINE [facility] Comment on above: Expected: 11/20/2024 , Expires: 02/19/2025 Start: 10-17-2024 Covid-19 Vaccine () Covid-19 Vaccine () [facility] Start: 05-24-2024 Advance Directive Discussion Advance Directive Discussion [facility] Start: 05-24-2024 Medicare Advantage Annual Wellness Visit Medicare Advantage Annual Wellness Visit [facility] Start: 05-10-2024 End: 05-10-2024 Patient encounter procedure 05/10/2024 10:00 AM EST Office Visit Family [facility] [address] [place] [address] Felecia Quiroz PA-C [address] [place] [address] blood pressure [facility] Comment on above: blood pressure Start: 04-23-2024 DIABETES SCREEN DIABETES SCREEN [facility] Start: 03-31-2024 RSV Vaccine (1 - 1-d ose 60+ series) RSV Vaccine (1 - 1-dose 60+ series) [facility] Comment on above: Postponed from 06/25 (Insurance Coverage) Start: 08-05-2023 Urine microalbumin profile [facility] Start: 05-24-2023 Advance Directive Discussion Advance Directive Discussion [facility] Start: 03-31-2023 End: 06-30-2023 LIPID PANEL, NONFASTING [facility] Work Phone: Comment on above: Expected: 03/31/2023 , Expires: 06/30/2023 Start: 02-02-2023 End: 04-04-2023 Cobalamin (Vitamin B12) [Mass/volume] in Serum or Plasma [facility] Work Phone: Comment on above: Expected: 02/02/2023 , Expires: 04/04/2023 Start: 02-02-2023 End: 04-04-2023 Comprehensive metabolic 2000 panel - Serum or Plasma [facility] Work Phone: Comment on above: Expected: 02/02/2023 , Expires: 04/04/2023 Start: 02-02-2023 End: 04-04-2023 Folate [Mass/volume] in Serum or Plasma [facility] Work Phone: Comment on above: Expected: 02/02/2023 , Expires: 04/04/2023 Start: 02-02-2023 End: 04-04-2023 SYPHILIS TOTAL W/REFLEX [facility] Work Phone: Comment on above: Expected: 02/02/2023 , Expires: 04/04/2023 Start: 02-02-2023 End: 04-04-2023 Thyrotropin [Units/volume] in Serum or Plasma [facility] Work Phone: Comment on above: Expected: 02/02/2023 , Expires: 04/04/2023 Start: 02-02-2023 End: 04-04-2023 Thyroxine (T4) free [Mass/volume] in Serum or Plasma [facility] Work Phone: Comment on above: Expected: 02/02/2023 , Expires: 04/04/2023 Start: 02-02-2023 End: 04-04-2023 Urinalysis complete panel - Urine [facility] Work Phone: Comment on above: Expected: 02/02/2023 , Expires: 04/04/2023 Start: 01-22-2023 Covid-19 Vaccine () Covid-19 Vaccine () [facility] Start: 01-22-2023 Influenza vaccination Influenza Vacc ine (#1) [facility] Start: 12-30-2022 End: 03-01-2023 Hemoglobin A1c in Blood HGB A1C Lab Routine Elevated hemoglobin A1c Expected: 12/30/2022, Expires: 03/01/2023 [facility] Work Phone: Comment on above: Expected: 12/30/2022 , Expires: 03/01/2023 Start: 07-25-2022 Covid-19 Vaccine (6 - Pfizer series) Covid-19 Vaccine (6 - Pfizer series) [facility] Start: 2022 End: 08-25-2022 Comprehensive metabolic 2000 panel - Serum or Plasma COMP METABOLIC PANEL Lab Routine Elevated alkaline phosphatase level Elevated serum creatinine Expected: 2022, Expires: 08/25/2022 [facility] Work Phone: Comment on above: Expected: 2022 , Expires: 08/25/2022 Start: 05-24-2022 ADVANCE DIRECTIVE DISCUSSION ADVANCE DIRECTIVE DISCUSSION [facility] Start: 03-16-2022 End: 05-16-2022 CBC W Auto Differential panel - Blood CBC + DIFF Lab Routine Medication management Expected: 03/16/2022, Expires: 05/16/2022 [facility] Work Phone: Comment on above: Expected: 03/16/2022 , Expires: 05/16/2022 Start: 03-16-2022 End: 05-16-2022 Comprehensive metabolic 2000 panel - Serum or Plasma COMP METABOLIC PANEL Lab Routine Dyslipidemia Expected: 03/16/2022, Expires: 05/16/2022 [facility] Work Phone: Comment on above: Expected: 03/16/2022 , Expires: 05/16/2022 Start: 03-16-2022 End: 05-16-2022 Hemoglobin A1c in Blood HGB A1C Lab Routine Elevated hemoglobin A1c Expected: 03/16/2022, Expires: 05/16/2022 [facility] Work Phone: Comment on above: Expected: 03/16/2022 , Expires: 05/16/2022 Start: 03-16-2022 End: 05-16-2022 LIPID PANEL, NONFASTING LIPID PANEL, NONFASTING Lab Routine Dyslipidemia Expected: 03/16/2022, Expires: 05/16/2022 [facility] Work Phone: Comment on above: Expected: 03/16/2022 , Expires: 05/16/2022 Start: 03-16-2022 End: 05-16-2022 Prostate specific Ag [Mass/volume] in Serum or Plasma PSA/PROSTSPECAG DIAG Lab Routine Disorder of prostate Expected: 03/16/2022, Expires: 05/16/2022 [facility] Work Phone: Comment on above: Expected: 03/16/2022 , Expires: 05/16/2022 Start: 03-16-2022 End: 05-16-2022 Urinalysis complete panel - Urine URINALYSIS, WITH MICROSCOPIC Lab Routine Dyslipidemia Expected: 03/16/2022, Expires: 05/16/2022 [facility] Work Phone: Comment on above: Expected: 03/16/2022 , Expires: 05/16/2022 Start: 02-26-2022 PNEUMOCOCCAL: 65+ (2 - PPSV23 if available, else PCV20) PNEUMOCOCCAL: 65+ (2 - PPSV23 if available, else PCV20) [facility] Start: 01-22-2022 Influenza vaccination INFLUENZA (#1) [facility] Start: 07-07-2021 COVID-19 VACCINE (4 - Booster for Pfizer series) COVID-19 VACCINE (4 - Booster for Pfizer series) [facility] Start: 05-24-2021 ADVANCE DIRECTIVE DISCUSSION ADVANCE DIRECTIVE DISCUSSION [facility] Start: 05-01-2021 COVID-19 VACCINE (4 - Booster for Pfizer series) COVID-19 VACCINE (4 - Booster for Pfizer series) [facility] Start: 2020 PNEUMOVAX AGE 65 AND OVER WITH 5YR LOOKBACK (#1) PNEUMOVAX AGE 65 AND OVER WITH 5YR LOOKBACK (#1) [facility] Start: 02-03-2018 FECAL OCCULT BLOOD FECAL OCCULT BLOO D [facility] Start: 02-03-2018 Screening for malign ant neoplasm of colon Fecal Occult Blood [facility] Start: 2015 RSV Vaccine (1 - 1-d ose 60+ series) RSV Vaccine (1 - 1-dose 60+ series) [facility] Start: 2000 COLOGUARD (FIT-DNA) COLOGUARD (FIT-D NA) [facility] Start: [address] COLONOGRAPHY [facility] Start: 2000 Screening for malign ant neoplasm of colon [facility] Start: 2000 SIGMOIDOSCOPY SIGMOIDOSCOPY [facility] Clostridioides diffi cile toxin genes [Presence] in Stool by ILIANA with probe detection C. DIFFICILE PCR Lab Routine Diarrhea, unspecified type Ordered: 07/15/2022 [facility] Work Phone: Comment on above: Ordered: 07/15/2022 End: 03-07-2026 CT Abdomen W contrast IV CT ABDOMEN W IVCON Radiology STAT Periumbilical abdominal pain Lower abdominal pain 1 Occurrences starting 02/05/2025 until 03/07/2026 [facility] Work Phone: Comment on above: 1 Occurrences starti ng 02/05/2025 until 03/07/2026 End: 12-20-2025 CT Head WO contrast CT BRAIN WO IVCON Radiology STAT Transient alteration of awareness Transient global amnesia 1 Occurrences starting 11/20/2024 until 12/20/2025 [facility] Comment on above: 1 Occurrences starti ng 11/20/2024 until 12/20/2025 End: 03-03-2024 Mri brain brain stem w/o contrast material MRI BRAIN WO IVCON Radiology Routine Dementia without behavioral disturbance (HCC) Memory difficulties 1 Occurrences starting 02/02/2023 until 03/03/2024 [facility] Work Phone: Comment on above: 1 Occurrences starti ng 02/02/2023 until 03/03/2024 End: 11-20-2025 US Carotid arteries - bilateral US CAROTID ARTERIES [facility] Vascular Lab Routine Transient alteration of awareness Transient global amnesia Bilateral carotid artery stenosis 1 Occurrences starting 11/20/2024 until 11/20/2025 [facility] Comment on above: 1 Occurrences starti ng 11/20/2024 until 11/20/2025 [facility] Immunizations Immunization Date Immunization Notes Care Provider Gabe cross 04-19-2024 COVID-19 vaccine, ag e 12+ yr (PFIZER-BIONTECH COMIRNATY) Yrn Holland MD Work Phone: [facility] 04-19-2024 influenza, high dose seasonal, preservative-free Yrn Holland MD Work Phone: [facility] 04-19-2024 influenza virus vacc ine, unspecified formulation Yrn Holland MD Work Phone: [facility] 07-27-2023 tetanus toxoid, redu sera diphtheria toxoid, and acellular pertussis vaccine, adsorbed Yrn Holland MD Work Phone: [facility] 03-31-2023 COVID-19 vaccine, ag e 12+ yr, 2022- season (PFIZER-BIONTECH) Yrn Holland MD Work Phone: [facility] 03-31-2023 influenza (HD-IIV4) vaccine, age 65+ yr, high dose, quadrivalent, PF (FLUZONE HIGH-DOSE) Yrn Holland MD Work Phone: [facility] 04-28-2022 pneumococcal polysaccharide vaccine, 23 valent Mi Nurse Work Phone: [facility] Work Phone: 03-27-2022 COVID-19 booster vaccine, age 12+ yr, bivalent (PFIZER-BIONTECH) Yrn Holland MD Work Phone: [facility] 03-27-2022 influenza, high-dose , quadrivalent vaccine (FLUZONE HIGH DOSE QUADRIVALENT) Yrn Holland MD Work Phone: [facility] 03-27-2022 influenza virus vacc ine, unspecified formulation Yrn Holland MD Work Phone: [facility] 03-06-2021 COVID-19 vaccine, ag e 12+ yr (PFIZER-BIONTECH - PURPLE TOP) Yrn Holland MD Work Phone: [facility] 02-26-2021 influenza, high-dose , quadrivalent vaccine (FLUZONE HIGH DOSE QUADRIVALENT) Yrn Holland MD Work Phone: [facility] 02-26-2021 pneumococcal conjuga te vaccine, 13 valent Yrn Holland MD Work Phone: [facility] 07-29-2020 COVID-19 vaccine, ag e 12+ yr (PFIZER-BIONTECH - PURPLE TOP) Yrn Holland MD Work Phone: [facility] Work Phone: 02-23-2020 influenza, injectabl e, quadrivalent, contains preservative Yrn Holland MD Work Phone: [facility] Work Phone: 05-29-2019 zoster vaccine recombinant Yrn Holland MD Work Phone: [facility] Work Phone: 03-27-2019 zoster vaccine recombinant Yrn Holland MD Work Phone: [facility] Work Phone: 03-17-2019 influenza, injectabl e, quadrivalent, contains preservative Yrn Holland MD Work Phone: [facility] 03-11-2018 influenza, injectabl e, quadrivalent, contains preservative Yrn Holland MD Work Phone: [facility] Work Phone: 03-10-2017 influenza, injectabl e, quadrivalent, contains preservative Yrn Holland MD Work Phone: [facility] Work Phone: 03-14-2016 influenza, injectabl e, quadrivalent, contains preservative Yrn Holland MD Work Phone: [facility] Work Phone: 02-21-2015 influenza, injectabl e, quadrivalent, contains preservative Yrn Holland MD Work Phone: [facility] 03-07-2014 influenza, seasonal, injectable Yrn Holland MD Work Phone: [facility] 08-04-2013 tetanus and diphther ia toxoids, adsorbed, preservative free, for adult use (2 Lf of tetanus toxoid and 2 Lf of diphtheria toxoid) Yrn Holland MD Work Phone: [facility] 03-20-2013 zoster vaccine, live Yrn Holland MD Work Phone: [facility] 03-04-2013 influenza virus vacc ine, unspecified formulation Yrn Holland MD Work Phone: [facility] 03-29-2010 influenza virus vacc ine, unspecified formulation Yrn Holland MD Work Phone: [facility] 03-01-2009 influenza virus vacc ine, unspecified formulation Yrn Holland MD Work Phone: [facility] Work Phone: 05-23-2008 tetanus toxoid, redu sera diphtheria toxoid, and acellular pertussis vaccine, adsorbed Yrn Holland MD Work Phone: [facility] Work Phone: 03-30-2008 influenza virus vacc ine, unspecified formulation Yrn Holland MD Work Phone: [facility] Work Phone: 04-01-2007 influenza virus vacc ine, unspecified formulation Yrn Holland MD Work Phone: [facility] Payers Date Payer Category Payer Self-pay 2021 Medicare [employer] MEDICARE A ETNA MEDICARE PPO [id number] 2021-Present [phone] [address] [place] [address] PPO [id number] 2021 Medicare [employer] MEDICARE A ETNA MEDICARE PPO [id number] 2021-Present [phone] [address] [place] [address] PPO [id number] 2021 Medicare (Managed Care) DANTE LO [id number] 2021 Medicare [id number] 1955 Unknown [id number] Unknown [id number] Unknown [id number] Social History Date Type Detail Facility Start: 02-15-2018 End: 03-27-2022 Tobacco smoking status NHIS Never smoked tobacco [facility] Work Phone: Start: 09-16-2021 End: 11-20-2024 Alcohol intake Current non-drinker of alcohol (finding) [facility] Start: 08-02-2020 History SDOH Alcohol Frequency 1 [facility] Start: 08-02-2020 History SDOH Alcohol Std Drinks 98 [facility] Start: 08-02-2020 History SDOH Social Connections Phone 5 [facility] Start: 08-02-2020 History SDOH Social Connections Scientology 3 [facility] Start: 08-02-2020 History SDOH Physica l Activity DPW 6 [facility] Start: 08-02-2020 History SDOH Physica l Activity MPS 15 [facility] Start: 08-02-2020 History SDOH Transport Med 2 [facility] Start: 08-02-2020 Education 18 [facility] Start: 1955 Sex Assigned At Not on file [facility] Start: 02-15-2018 End: 03-27-2022 Tobacco use and exposure Smokeless tobacco non-user [facility] Start: 03-17-2022 End: 03-27-2022 Exposure to SARS-CoV-2 (event) Not sure [facility] Start: 08-02-2020 End: 02-02-2023 History of Social function [facility] Start: 08-02-2020 End: 02-02-2023 Social connection and isolation panel [facility] Start: 04-24-2012 How often do you get together with friends or relatives? Patient refused [facility] Do you belong to any clubs or organizations such as taoism groups, unions, fraternal or athletic groups, or school groups? Yes [facility] Are you now , , , , never or living with a partner? [facility] How often to you hav e a drink containing alcohol? Never [facility] Do you feel stress - tense, restless, nervous, or anxious, or unable to sleep at night because your mind is troubled all the time - these days [OSQ] Not at all [facility] (I/We) worried wheth er (my/our) food would run out before (I/we) got money to buy more. Never true [facility] In the past 12 month s, was there a time when you were not able to pay the mortgage or rent on time? No [facility] Do you feel stress - tense, restless, nervous, or anxious, or unable to sleep at night because your mind is troubled all the time - these days [OSQ] Rather much [facility] Clinical Notes 09-16-2021 to 03-22-2025 Daphnie Best MA - 02/07/2025 9:18 AM Ned Edouard APRN.KIKO - 02/05/2025 1:32 PM EDTTelephone Macey - Jayleen Mckeon RN - 02/05/2025 8:19 AM EDTPatient InstructionsPatient Instructions Note Date & Type Note Facility 03-22-2025 Note HNO ID: [id number] Author: LISA ROBIN LPN Service: ? Author Type: Licensed Nurse Type: Progress Notes Filed: 03/22/2025 07:36 Note Text: Scan on 03/21/2025 6:11 PM by ProviderDahlia PA-C: CT Scan [facility] 02-07-2025 Note HNO ID: [id number] Author: DAPHNIE BEST MA Service: ? Author Type: Clinical Research Monitor Type: Progress Notes Filed: 02/07/2025 09:18 Note Text: Scan on 02/06/2025 4:49 PM by ProviderDahlia PA-C: Dr. Najera [facility] 02-07-2025 History of Present illness Narrative Scan on 02/06/2025 4:49 PM by Dahlia Barakat PA-C: Dr. Najera documented in this encounter [facility] 02-05-2025 Note HNO ID: [id number] Author: NED MUNOZ APRN.LIDDING MACHINE OPERATOR Service: ? Author Type: Nurse Practitioner Type: [...] Take by mouth. Taking 1000 mg daily pk-fyw-xvuzc acid-lutein (CENTRUM SILVER) 400-250 mcg chew Take [...] (POCT) Negative mg/d (more content not included)... [facility] 02-05-2025 History of Present illness Narrative Chief [...] Take by mouth. Taking 1000 mg daily ab-zsz-ijnho acid-lutein (CENTRUM SILVER) 400-250 mcg chew Take [...] Drug use: No documented in this encounter [facility] 02-05-2025 Telephone encounter Note Reason for Conversation [...] on file. Protocols Used Abdominal Pain - [id number] [facility] 02-05-2025 Miscellaneous Notes Reason for Conversation Lower [...] on file. Protocols Used Abdominal Pain - [id number] documented in this encounter [facility] 12-25-2024 Telephone encounter Note Patient's notified of results. Patient's verbalizes understanding. states that patient has had more episodes of leaning and almost falling. reports that PCP told her that if this happens again that patient should go to ER. states that they are currently in [place] and are flying home today. Patient did not want to go to an ER in [place]. Advised again that if patient continues to have episodes that he needs to go to ER. Voiced understanding. Jayleen Mckeon RN [facility] 12-25-2024 Miscellaneous Notes Patient's notified of results. Patient's verbalizes understanding. states that patient has had more episodes of leaning and almost falling. reports that PCP told her that if this happens again that patient should go to ER. states that they are currently in [place] and are flying home today. Patient did not want to go to an ER in [place]. Advised again that if patient continues to have episodes that he needs to go to ER. Voiced understanding. Jayleen Mckeon RN [employer] message with results viewed by patient on [...] US is stable. documented in this encounter [facility] 12-25-2024 Telephone encounter Note [employer] message with results viewed by patient on 12/22/24 at 2:57 pm. Daphnie Best MA [facility] 12-22-2024 Telephone encounter Note Notified pt office [...] to call pt again. Daphnie Best MA [facility] 12-21-2024 Telephone encounter Note Left message for pt to contact office. Lisa Robin LPN [facility] 12-21-2024 Telephone encounter Note Carotid artery US is stable. [facility] 11-23-2024 Telephone encounter Note Pt read message today. Naomie Harris MA [facility] 11-23-2024 Miscellaneous Notes Pt read message today. Naomie Harris MA Notified via ScheduleThing, will leave open till pt has read message. Naomie Harris MA Let patient know all his labs so far have been ok. The only lab pending is for heavy metals. Will update him when completed. documented in this encounter [facility] 11-23-2024 Telephone encounter Note Can we contact pt to help setup US Carotids please. Pt may call in to schedule as well. Thanks Daphnie Best MA [facility] 11-23-2024 Miscellaneous Notes Can we contact pt to help setup US Carotids please. Pt may call in to schedule as well. Thanks Daphnie Best MA documented in this encounter [facility] 11-23-2024 Telephone encounter Note Notified via ScheduleThing, will leave open till pt has read message. Naomie Harris MA [facility] 11-22-2024 Telephone encounter Note Let patient know all his labs so far have been ok. The only lab pending is for heavy metals. Will update him when completed. [facility] 11-21-2024 Telephone encounter Note Call to pt and notified him of results below. Pt asking if he can drive, reviewed with PCP who notified yes he could. Asking about lab results, notified pt that labs have not all fully came back and once they do they will be reviewed and him notified. Pt understood. Daphnie Best MA [facility] 11-21-2024 Miscellaneous Notes Call to pt and [...] Maryann Chen RN documented in this encounter [facility] 11-21-2024 Telephone encounter Note Let patient know CT of his brain was normal for his age without any acute abnormalities. [facility] 11-21-2024 Telephone encounter Note Pt called in and was asking if the provider would look at the results of his CT and get back to him. IMPRESSION: No acute intracranial abnormality. 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 Maryann Chen RN [facility] 11-20-2024 Instructions Yrn Holland MD - 11/20/2024 [...] do not hear from us, please check Torrentialt or call our office for updates. Please let us know if you have any additional questions or concerns. documented in this encounter [facility] 11-20-2024 History of Present illness Narrative Chief [...] awareness and confusion while out hiking at [facility]. During the episode, his slitter and cutter operator noted that his shoulder appeared to be [...] been drinking the same water as his slitter and cutter operator and denies any exposure to different water [...] genetic. 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 Taking 1000 mg daily xs-itr-kwlun acid-lutein (CENTRUM SILVER) 400-250 mcg chew Take [...] check US. Yrn Holland MD Recording using Sepior software for draft documentation of the visit was discussed with the patient/authorized personal banking representative; all questions welcomed and answered. Patient/authorized personal banking representative agreed to proceed documented in this encounter [facility] 11-20-2024 Note HNO ID: [id number] Author: YRN HOLLAND MD Service: ? Author [...] awareness and confusion while out hiking at [facility]. During the episode, his slitter and cutter operator noted that his shoulder appeared to be [...] been drinking the same water as his slitter and cutter operator and denies any exposure to different water [...] Take by mouth. Taking 1000 mg daily ry-mjn-hglhn acid (more content not included)... [facility] 11-20-2024 Telephone encounter Note calls and reports [...] see Dr. Holland today. Jayleen Mckeon RN [facility] 11-20-2024 Miscellaneous Notes calls and reports that [...] Jayleen Mckeon RN documented in this encounter [facility] 10-30-2024 Telephone encounter Note Pt called in let him know that his next appointment is on 04/04/25. Let him know that his Lipitor was sent in on 10/12/24 and to call [facility] in [place]. Maryann Chen RN [facility] 10-30-2024 Miscellaneous Notes Pt called in let him know that his next appointment is on 04/04/25. Let him know that his Lipitor was sent in on 10/12/24 and to call [facility] in [place]. Maryann Chen RN documented in this encounter [facility] 09-25-2024 Note HNO ID: [id number] Author: TIERNEY DURAND RN Service: ? Author [...] Durand RN September 25, 2024 9:02 AM [facility] 09-25-2024 History of Present illness Narrative Value [...] 2024 9:02 AM documented in this encounter [facility] 09-25-2024 Note Patient Outreach (AM BCMG) CRISSY RICHTER ([id number]) 1955 M Date Time Provider Department 09/25/24 TIERNEY DURAND [facility] During your visit today, we recorded the [...] LPN - Fully Assessed Reason for Visit: Keeler Polygraph Operator- Other [[id number]] Prescriptions as of 09/25/2024 - tamsulosin (FLOMAX) [...] by mouth. Taking 1000 mg daily - ns-dis-izksj acid-lutein (CENTRUM SILVER) 400-250 mcg chew Take [...] Encounter Status:Closed by TIERNEY DURAND on 09/25/24 [facility] 08-16-2024 Note HNO ID: [id number] Author: TAHIR ROJAS MA Service: ? Author Type: Clinical Research Monitor Type: Progress Notes Filed: 08/16/2024 14:51 Note Text: POPULATION HEALTH NAVIGATION OUTREACH Action/FYI Gaps due: FU LVM, Sent mcm, updated notes. Reason for Outreach Care Gap/HCC or Scheduling Wellness Visits Care Gaps due: Follow-up Appointment Patient Contacted: Unable or unnecessary to reach patient: Left message Cheyennehart message sent Updated appointment notes Navigation Signature: Tahir Rojas MA August 16, 2024 2:50 PM [facility] 08-16-2024 History of Present illness Narrative POPULATION HEALTH NAVIGATION OUTREACH Action/FYI Gaps due: FU LVM, Sent mcm, updated notes. Reason for Outreach Care Gap/HCC or Scheduling Wellness Visits Care Gaps due: Follow-up Appointment Patient Contacted: Unable or unnecessary to reach patient: Left message MyChart message sent Updated appointment notes Navigation Signature: Tahir Rojas MA August 16, 2024 2:50 PM documented in this encounter [facility] 08-16-2024 Note Patient Outreach (NE TNAV) CRISSY RICHTER ([id number]) 1955 M Date Time Provider Department 08/16/24 TAHIR ROJAS During your visit today, we recorded the following information about you: Tahir Rojas MA 08/16/2024 2:51 PM Signed POPULATION HEALTH NAVIGATION OUTREACH Action/FYI Gaps due: FU LVM, Sent [facility], updated notes. Reason for Outreach [...] by mouth. Taking 1000 mg daily - zg-fgw-zymnu acid-lutein (CENTRUM SILVER) 400-250 mcg chew Take [...] Encounter Status:Closed by TAHIR ROJAS on 08/16/24 [facility] 08-10-2024 Note HNO ID: [id number] Author: DAKOTA STAHL MA Service: ? Author Type: Clinical Research Monitor Type: Progress Notes Filed: 08/10/2024 15:55 Note [...] or unnecessary to reach patient: Left message [employer] message sent Navigation Signature: Dakota Stahl MA August 10, 2024 3:54 PM [facility] 08-10-2024 History of Present illness Narrative POPULATION [...] or unnecessary to reach patient: Left message [employer] message sent Navigation Signature: Dakota Stahl MA August 10, 2024 3:54 PM documented in this encounter [facility] 08-10-2024 Note Patient Outreach (NE TNAV) CRISSY RICHTER ([id number]) 1955 M Date Time Provider Department 08/10/24 [...] message MyChart message sent Navigation Signature: Dakota Stahl MA August 10, 2024 3:54 PM Allergies [...] by mouth. Taking 1000 mg daily - fy-xrg-iffuf acid-lutein (CENTRUM SILVER) 400-250 mcg chew Take [...] Encounter Status:Closed by DAKOTA STAHL on 08/10/24 [facility] 07-25-2024 Note HNO ID: [id number] Author: LISA ROBIN LPN Service: ? Author Type: LICENSED NURSE Type: Progress Notes Filed: 07/25/2024 07:14 Note Text: Scan on 07/24/2024 3:47 PM by Dahlia Barakat PA-C: Consultation - [facility] 07-25-2024 History of Present illness Narrative Scan on 07/24/2024 3:47 PM by Dahlia Barakat PA-C: Consultation - documented in this encounter [facility] 07-24-2024 Note HNO ID: [id number] Author: LISA ROBIN LPN Service: ? Author Type: LICENSED NURSE Type: Progress Notes Filed: 07/24/2024 12:18 Note Text: Scan on 07/24/2024 12:09 PM by Dahlia Barakat PA-C: Chemistry [facility] 07-24-2024 History of Present illness Narrative Scan on 07/24/2024 12:09 PM by Dahlia Barakat PA-C: Chemistry documented in this encounter [facility] 05-11-2024 Telephone encounter Note The following approved medication requests have been transmitted electronically. Requested Prescriptions Signed Prescriptions Disp Refills atorvastatin (LIPITOR) 10 mg tablet 30 tablet 5 Sig: Take 1 tablet by mouth once daily. Authorizing Provider: YRN HOLLAND MD [facility] 05-11-2024 Miscellaneous Notes The following approved medication [...] ago. Pended Rx documented in this encounter [facility] 05-11-2024 Telephone encounter Note Patient phoned to ask pcp to send the atorvastatin 10 mg daily to [facility]. States he is concerned about his cholesterol levels, and pcp had recommended this a few weeks ago. Pended Rx [facility] 05-10-2024 Note HNO ID: [id number] Author: FELECIA QUIROZ PA-C Service: ? Author Type: Physician Fiberglass Boat Maker Type: Progress Notes Filed: 05/10/2024 10:16 Note [...] Take by mouth. Taking 1000 mg daily qk-wqd-knkwt acid-lutein (CENTRUM SILVER) 400-250 mcg chew Take [...] as scheduled next year. Felecia Quiroz PA-C [facility] 05-10-2024 History of Present illness Narrative Chief [...] 11/23/2018 Oropharyngeal dysphagia 03/10/2023 swallowing exam 02/2023: [facility]: mild-Mod Osteoarthritis of finger of right hand [...] Take by mouth. Taking 1000 mg daily qp-dgz-ofswo acid-lutein (CENTRUM SILVER) 400-250 mcg chew Take [...] Felecia Quiroz PA-C documented in this encounter [facility] 04-24-2024 Telephone encounter Note Noted. [facility] 04-24-2024 Miscellaneous Notes Noted. Patient notified and [...] lesson this risk. documented in this encounter [facility] 04-21-2024 Telephone encounter Note Patient notified and [...] starting the new medication. Kemi Woo MA [facility] 04-20-2024 Telephone encounter Note Let patient know [...] mg a day to lesson this risk. [facility] 04-19-2024 Instructions Yrn Holland MD - 04/19/2024 2:26 PM EST Please bring in copies of your power of deputy prosecuting attorney for health care and living will. Screening [...] review all the medicines you take, even zpbo-mpi-dnylict medicines. As you get older, the way [...] certain medical conditions. documented in this encounter [facility] 04-19-2024 Note HNO ID: [id number] Author: YRN HOLLAND MD Service: ? Author [...] mg 24 hr (more content not included)... [facility] 04-19-2024 History of Present illness Narrative Crissy [...] 11/23/2018 Oropharyngeal dysphagia 03/10/2023 swallowing exam 02/2023: [facility]: mild-Mod Osteoarthritis of finger of right hand [...] daily at bedtime. Per Psych, Dr. Barone) mv-div-kyawz acid-lutein (CENTRUM SILVER) 400-250 mcg chew Take [...] HIGH DOSE, TRIVALENT (FLUZONE HIGH-DOSE): given - [employer] COVID-19 VACCINE AGE 12+ YR ([place]): given [...] which included preparing to see the patient, qxqw-qr-xgux patient care, completing clinical documentation, performing a medically appropriate examination, counseling and educating the patient/family/caregiver and ordering medications, tests, or procedures. Yrn Holland MD documented in this encounter [facility] 07-20-2023 Miscellaneous Notes Pt notified. He verbalized understanding. Maximino Gan LPN Advise Crissy he should get a Tdap. Pt calling to check on the following: [facility]. He would like to know what you recommend he get. TD or TDAP and he was told by his insurance, [employer] he would need to go thru the pharmacy to get it. Please advise pt. Okay to leave a detailed message. Valery Moseley LPN documented in this encounter [facility] 07-14-2023 History of Present illness Narrative Scan on 07/13/2023 5:35 PM by ProviderDahlia PA-C: Chemistry documented in this encounter [facility] 07-14-2023 History of Present illness Narrative Scan on 07/13/2023 3:56 PM by ProviderDahlia PA-C: Consultation - documented in this encounter [facility] 05-12-2023 Miscellaneous Notes Protocol recommends Home care. [...] FEVER: Denies 7. RESPIRATORY STATUS: normal 8. OBPXTT-NOUA-WJVWK: Same 9. OTHER SYMPTOMS: Denies chills, fatigue, headache, loss of smell or taste, muscle pain, or sore throat 10. HIGH RISK DISEASE: Denies hx of asthma, heart or lung disease, weak immune system, obesity 11. VACCINE: Has had all 6-last one was 03/31/23 12. : N/A 13. O2 SATURATION MONITOR: N/A Protocols used: COVID-19 - Diagnosed or Ddkqwofok-YMRFK-KK documented in this encounter [facility] 04-01-2023 Miscellaneous Notes Pt notified. Naomie Harris [...] fat/chol in it. documented in this encounter [facility] 03-31-2023 Instructions Yrn Holland MD - 03/31/2023 1:14 PM EST Please bring in copies of your power of deputy prosecuting attorney for health care and living will. Please consider getting the RSV vaccine from local pharmacy documented in this encounter [facility] 03-31-2023 History of Present illness Narrative Medicare [...] 11/23/2018 Oropharyngeal dysphagia 03/10/2023 swallowing exam 02/2023: [facility]: mild-Mod Osteoarthritis of finger of right hand [...] daily at bedtime. Per Psych, Dr. Barone) be-nhb-megpt acid-lutein (CENTRUM SILVER) 400-250 mcg chew Take [...] Lymph 1.00 - 4.00 k/uL 1.35 1.12 Keith% % 9.6 9.1 Abs Keith <0.87 k/uL 0.52 0.51 Eosin% % 17.2 [...] Ketones, Urine Trace, Negative Negative Negative Specific [place], Ur 1.005 - 1.030 1.027 1.029 Hemoglobin/Blood,Ur [...] and regular exercise - Patient was counseled hljb-zg-brkl by myself (the billing provider) for the [...] HIGH DOSE, QUADRIVALENT (FLUZONE HIGH-DOSE): given - [employer] COVID-19 VACCINE ( [place]) AGE 12+ YR: given. F/u in a year for WAE sooner if needed. I spent a total of 40 minutes on the date of the service which included preparing to see the patient, kibn-mh-jytf patient care, completing clinical documentation, performing a medically appropriate examination, counseling and educating the patient/family/caregiver and ordering medications, tests, or procedures. Patient was asked at end of visit if they had any questions or input regarding the plan of care we had discussed. Yrn Holland MD documented in this encounter [facility] 03-11-2023 Miscellaneous Notes Noted. Patient returned call [...] at this time. documented in this encounter [facility] 03-04-2023 History of Present illness Narrative Radiology [...] 2023 8:42 AM documented in this encounter [facility] 03-01-2023 History of Present illness Narrative CC CENTRAL LESTER NURSE - CHART REVIEW Provider [facility] Action Chart review 05/04/22 ED [facility] [place], left flank and lower abdominal pain, diagnosed non obstructive bilateral renal calculi 05/09/22 ED[facility] pain, renal calculi, cystoscopy, L ureteroscopy, laser lithotripsy and placement of ureteral stent Pt identified by name and . Reason for Review: Payor request Patient Attributed To: KYLEE Payer: ROSSYBlayneWALLACE Chart Review For: Utilization: ED Total Patient High CostTotal Patient High Cost {HIGH COST:612355) Quality measure review Payor request for assistance Action Taken: No action needed Renetta Jones RN March 01, 2023 12:25 PM documented in this encounter [facility] 02-25-2023 Miscellaneous Notes Spoke with and gave [...] severe depression. He sees Dr. Barone in [facility] but doesn't think he is getting any better. Her son talked with someone about cranial osteopathy. Tiffanie wondering if Dr. Holland has heard of this and if so, could he recommend someone to them. documented in this encounter [facility] 02-25-2023 Miscellaneous Notes Pt called in asking if his MRI and Swallowing test were authorized. He states he called his insurance and they said they needed the CPT code. Contacted Kassidy with the Pre Authorization department and for the MRI she said, "CC has an exemption with his insurance, [employer]. Patient's coming here don't need auth.". The Swallowing test she said, "it doesn't require auth and that was sent to [facility].". I let the Pt know, and he was satisfied. documented in this encounter [facility] 02-05-2023 Miscellaneous Notes Phoned patient and given provider's message below with verbalized understanding. Let patient know the syphilis test was negative and all other labs were normal. documented in this encounter [facility] 02-02-2023 History of Present illness Narrative Chief [...] daily at bedtime. Per Psych, Dr. Barone) jy-rjp-zpaph acid-lutein (CENTRUM SILVER) 400-250 mcg chew Take [...] References: 1. Folstein MF, Folstein SE, Brayan [place]. Mini-Mental State: a practical method for grading [...] in patients with probable Alzheimer's disease. Neurology. 1992;42:[id number]. A/P ASSESSMENT/PLAN: 1. Dementia without behavioral disturbance [...] order a PHYSICAL THERAPY swallowing study with [facility]. I spent a total of 30 minutes on the date of the service which included preparing to see the patient, zkxn-dx-fkge patient care, completing clinical documentation, performing a medically appropriate examination, counseling and educating the patient/family/caregiver and ordering medications, tests, or procedures. Yrn Holland MD documented in this encounter [facility] 07-15-2022 History of Present illness Narrative This note was created using [employer]. Subjective Crissy Richter is a 67 year [...] Take by mouth. Taking 1000 mg daily mh-itz-gcwfa acid-lutein (CENTRUM SILVER) 400-250 mcg chew Take [...] Amalia Gonzales PA-C documented in this encounter [facility] 07-15-2022 Instructions Amalia Gonzales PA-C - 07/15/2022 10:14 AM EST BRAT DIET (may eat any of the following as tolerated) Bananas Applesauce Gabbs Saltine Crackers Animal Crackers Pretzels Oatmeal Unsweetened Dry Cereal (Rice Krispies, Cheerios) Plain Baked or Boiled Potato Plain White Rice Plain Noodles All clear liquid listed below CLEAR LIQUID DIEThour) Broth Jello Popsicles Pedialyte Gatorade NO Juices NO Milk NO Dairy Products documented in this encounter [facility] 07-03-2022 Miscellaneous Notes Noted. Felecia Quiroz PA-C [...] Felecia Quiroz PA-C documented in this encounter [facility] 2022 Miscellaneous Notes Patient notified and voiced [...] with water prior documented in this encounter [facility] 05-19-2022 Miscellaneous Notes Spoke with pt and [...] the kidney stone surgery he had in [place] and with his age of 65, and the watery stools and Imodium not helping. checking to see if pt could be put on something for the diarrhea. [facility]. Please advise . Valery Moseley LPN documented in this encounter [facility] 05-18-2022 Instructions Shirley Hdez APRN.KIKO - 05/18/2022 [...] dark tarry stools. documented in this encounter [facility] 05-18-2022 History of Present illness Narrative Subjective The history is provided by the patient. No engineering operations leader was used. HPI Crissy Richter is a [...] have confirmed and edited as necessary, the [facility] Review of Systems Constitutional: Negative for [...] Shirley Hdez APRN.KIKO documented in this encounter [facility] 05-15-2022 Miscellaneous Notes Patient calls to report [...] fever or blood in stool Protocols used: Bzcudcoj-SYFFR-DY documented in this encounter [facility] 05-04-2022 Miscellaneous Notes Noted and agree. Protocol [...] OVERUSE: Helped moved mother in law into senior living Wednesday afternoon. But woke up Wednesday morning [...] today. 11. : N/A Protocols used: Back Rskw-GXEOP-TJ, Flank Lukk-MWBDV-NE documented in this encounter [facility] 04-28-2022 History of Present illness Narrative Patient presents for Pneumococcal vaccine. Denies any problems at this time. Tolerated injection well. Ronel Norton LPN documented in this encounter [facility] 04-08-2022 Miscellaneous Notes Upon review of the chart patient completed a colonoscopy 12/2017. notified. Kemi Woo MA I think this was routed to the incorrect pool. Routing to PCP pool. Daphnie Best Ma Aerial Sprayer from [employer] wanted to notify the office that the patient is due for a colonoscopy. This will be a covered service. Please contact the patient to advise on plan of care. documented in this encounter [facility] 03-27-2022 Instructions Yrn Holland MD - 03/27/2022 12:14 PM EDT Please bring in copies of your living will and durable power of health care. documented in this encounter [facility] 03-27-2022 History of Present illness Narrative Medicare [...] Wellness Exam HPI Crissy Richter is a 66 year [...] Starting Wednesday08/04/2021 [place] Taking 1/4 teaspoon daily ew-fmw-yvrct acid-lutein (CENTRUM SILVER) 400-250 mcg chew Take 1 tablet by mouth once daily. glucosamine/msm/chondroitin A (BQEYPLXAYTQ-MBDDQG-NJZ ORAL) Take by mouth twice daily. No [...] 1.00 - 4.00 k/uL 0.93 (L) 1.35 Keith% % 11.7 9.6 Abs Keith <0.87 k/uL 0.49 0.52 Eosin% % 3.1 [...] Negative Negative Ketones, Urine Negative Negative Specific [place], Ur 1.005 - 1.030 1.027 Hemoglobin/Blood,Ur Negative [...] and regular exercise - Patient was counseled hftn-jq-bzfc by myself (the billing provider) for the [...] immunization - ICD9: V03.89, ICD10: Z23 - [employer] COVID-19 BIVALENT BOOSTER VACCINE, AGE 12+ YR: given - INFLUENZA SEASONAL QUADRIVALENT HIGH DOSE AGE 65+: given F/u in a year or sooner if issues. I spent a total of 40 minutes on the date of the service which included preparing to see the patient, hzmy-jx-lsjf patient care, completing clinical documentation, performing a medically appropriate examination, counseling and educating the patient/family/caregiver and ordering medications, tests, or procedures. Yrn Holland MD documented in this encounter [facility] 03-16-2022 Miscellaneous Notes Left detailed message with [...] provider agrees and orders are placed at [phone]. Ana Lilia Grewal, RN documented in this encounter [facility] 10-09-2021 History of Present illness Narrative Patient scheduled to see Dr. Holland in March for his annual physical. Pt's was requesting that we don't call anymore about appointments now that he is scheduled in March. LALIT Castillo October 09, 2021 12:59 PM POPULATION HEALTH NAVIGATION OUTREACH Action/FYI Patient due for Follow Up, AD Left message and sent [employer] Search Pt identified by name and : NO Outreach Outcome/Action Unable to reach patient: Left message Altacorhart message sent Reason for Outreach Care Gap [...] 2021 9:00 AM documented in this encounter [facility] 09-16-2021 Miscellaneous Notes Med record updated. called and states pt is not doing well due to his anxiety pt has apt 09-22-21 with Counselor at [facility] associated with Dr. Russ Barone. They are [...] Valery Moseley LPN documented in this encounter [facility] Evaluation note Diagnosis Major depressive disorder, recurrent episode, severe with anxious distress (HCC) Severe anxiety [facility] Dyslipidemia- Primary Other and unspecified hyperlipidemia Elevated hemoglobin A1c Other abnormal blood chemistry Disorder of prostate Unspecified disorder of prostate Medication management Encounter for long-term (current) use of other medications [facility] Diagnosis Medicare annual wellness visit, initial- [...] single bacterial disease [facility] Diagnosis Encounter for immunization- Primary Need for other specified prophylactic vaccination against single bacterial disease [facility] Diagnosis Diarrhea, unspecified type- Primary [facility] Diagnosis Elevated alkaline phosphatase level- Primary Other nonspecific abnormal serum enzyme levels Elevated serum creatinine Other nonspecific findings on examination of blood [facility] Elevated hemoglobin A1c- Primary Other abnormal blood chemistry Bilateral carotid artery stenosis Occlusion and stenosis of carotid artery without mention of cerebral infarction [facility] Diarrhea, unspecified type- Primary [...] difficulties Memory loss [facility] Encounter for Medicare annual [...] single bacterial disease [facility] Diagnosis Encounter for Medicare annual wellness [...] of hypertension- Primary [facility] Diagnosis Transient alteration of awareness- Primary Shoulder weakness Other symptoms referable to shoulder joint Nystagmus Nystagmus, unspecified Transient global amnesia Bilateral carotid artery stenosis Occlusion and stenosis of carotid artery without mention of cerebral infarction [facility] Transient alteration of awareness Transient global amnesia [facility] Bilateral carotid artery stenosis- Primary Occlusion and stenosis of carotid artery without mention of cerebral infarction documented in this encounter [facility] note* Diagnosis Periumbilical abdominal pain- Primary Abdominal pain, periumbilic Lower abdominal pain Abdominal pain, other specified site documented in this encounter [facility] for visit Narrative* MRI/CT (Urgent) - Closed Specialty Diagnoses / Procedures Referred By Adair t Referred To Contact CT IMAGING Diagnoses Transient alteration of awareness Transient global amnesia Procedures CT BRAIN WO IVCON CT HEAD/BRAIN W/O CONTRAST MATERIAL Yrn Holland MD [address] [place] [address] Phone: tel: fax: CT IMAGING [facility] Referral ID Status Reason Start Date Expiration Date V isits Requested Visits Authorized [id number] Closed Auto-Generate d Referral 11/20/2024 12/20/2025 1 1 [facility] Summary Purpose Family History No Family History [...] W/O CONTRAST MATERIAL Yrn Holland MD [address] [place] [address] [place] [address] Referral ID Status Reason Start Date Expiration Date Visits Requested Visits Authorized [id number] Authorized Auto-Generat ed Referral 02/02/2023 03/03/2024 1 1 Referral ID Status Reason Start Date Expiration Date V isits Requested Visits Authorized [id number] Closed Auto-Generate d Referral 02/02/2023 03/03/2024 1 1 Additional Source Comments Source Comments (unrecognize d section and content) In the event this informatio n is protected by the Federal Confidentiality of Alcohol and Drug Abuse Patient Records regulations: The Federal rules restrict any use of the information to criminally investigate or prosecute any alcohol or drug abuse patient.[facility] the event this information is protected by the Federal Confidentiality of Alcohol and Drug Abuse Patient Records regulations: The Federal rules restrict any use of the information to criminally investigate or prosecute any alcohol or drug abuse patient.[facility] the event this information is protected by the Federal Confidentiality of Alcohol and Drug Abuse Patient Records regulations: The Federal rules restrict any use of the information to criminally investigate or prosecute any alcohol or drug abuse patient.[facility] the event this information is protected by the Federal Confidentiality of Alcohol and Drug Abuse Patient Records regulations: The Federal rules restrict any use of the information to criminally investigate or prosecute any alcohol or drug abuse patient.[facility] the event this information is protected by the Federal Confidentiality of Alcohol and Drug Abuse Patient Records regulations: The Federal rules restrict any use of the information to criminally investigate or prosecute any alcohol or drug abuse patient.[facility] Center[facility] the event this information is protected by the Federal Confidentiality of Alcohol and Drug Abuse Patient Records regulations: The Federal rules restrict any use of the information to criminally investigate or prosecute any alcohol or drug abuse patient.[facility] Center[facility] the event this information is protected by the Federal Confidentiality of Alcohol and Drug Abuse Patient Records regulations: The Federal rules restrict any use of the information to criminally investigate or prosecute any alcohol or drug abuse patient.[facility] Center[facility] the event this information is protected by the Federal Confidentiality of Alcohol and Drug Abuse Patient Records regulations: The Federal rules restrict any use of the information to criminally investigate or prosecute any alcohol or drug abuse patient.[facility] CenterIn the event this information is protected by the Federal Confidentiality of Alcohol and Drug Abuse Patient Records regulations: The Federal rules restrict any use of the information to criminally investigate or prosecute any alcohol or drug abuse patient.[facility] CenterIn the event this information is protected by the Federal Confidentiality of Alcohol and Drug Abuse Patient Records regulations: The Federal rules restrict any use of the information to criminally investigate or prosecute any alcohol or drug abuse patient.[facility] CenterIn the event this information is protected by the Federal Confidentiality of Alcohol and Drug Abuse Patient Records regulations: The Federal rules restrict any use of the information to criminally investigate or prosecute any alcohol or drug abuse patient.[facility] CenterIn the event this information is protected by the Federal Confidentiality of Alcohol and Drug Abuse Patient Records regulations: The Federal rules restrict any use of the information to criminally investigate or prosecute any alcohol or drug abuse patient.[facility] CenterIn the event this information is protected by the Federal Confidentiality of Alcohol and Drug Abuse Patient Records regulations: The Federal rules restrict any use of the information to criminally investigate or prosecute any alcohol or drug abuse patient.[facility] CenterIn the event this information is protected by the Federal Confidentiality of Alcohol and Drug Abuse Patient Records regulations: The Federal rules restrict any use of the information to criminally investigate or prosecute any alcohol or drug abuse patient.[facility] CenterIn the event this information is protected by the Federal Confidentiality of Alcohol and Drug Abuse Patient Records regulations: The Federal rules restrict any use of the information to criminally investigate or prosecute any alcohol or drug abuse patient.[facility] CenterIn the event this information is protected by the Federal Confidentiality of Alcohol and Drug Abuse Patient Records regulations: The Federal rules restrict any use of the information to criminally investigate or prosecute any alcohol or drug abuse patient.[facility] CenterIn the event this information is protected by the Federal Confidentiality of Alcohol and Drug Abuse Patient Records regulations: The Federal rules restrict any use of the information to criminally investigate or prosecute any alcohol or drug abuse patient.[facility] CenterIn the event this information is protected by the Federal Confidentiality of Alcohol and Drug Abuse Patient Records regulations: The Federal rules restrict any use of the information to criminally investigate or prosecute any alcohol or drug abuse patient.[facility] CenterIn the event this information is protected by the Federal Confidentiality of Alcohol and Drug Abuse Patient Records regulations: The Federal rules restrict any use of the information to criminally investigate or prosecute any alcohol or drug abuse patient.[facility] CenterIn the event this information is protected by the Federal Confidentiality of Alcohol and Drug Abuse Patient Records regulations: The Federal rules restrict any use of the information to criminally investigate or prosecute any alcohol or drug abuse patient.[facility] CenterIn the event this information is protected by the Federal Confidentiality of Alcohol and Drug Abuse Patient Records regulations: The Federal rules restrict any use of the information to criminally investigate or prosecute any alcohol or drug abuse patient.[facility] CenterIn the event this information is protected by the Federal Confidentiality of Alcohol and Drug Abuse Patient Records regulations: The Federal rules restrict any use of the information to criminally investigate or prosecute any alcohol or drug abuse patient.[facility] CenterIn the event this information is protected by the Federal Confidentiality of Alcohol and Drug Abuse Patient Records regulations: The Federal rules restrict any use of the information to criminally investigate or prosecute any alcohol or drug abuse patient.[facility] CenterIn the event this information is protected by the Federal Confidentiality of Alcohol and Drug Abuse Patient Records regulations: The Federal rules restrict any use of the information to criminally investigate or prosecute any alcohol or drug abuse patient.[facility] CenterIn the event this information is protected by the Federal Confidentiality of Alcohol and Drug Abuse Patient Records regulations: The Federal rules restrict any use of the information to criminally investigate or prosecute any alcohol or drug abuse patient.[facility] CenterIn the event this information is protected by the Federal Confidentiality of Alcohol and Drug Abuse Patient Records regulations: The Federal rules restrict any use of the information to criminally investigate or prosecute any alcohol or drug abuse patient.[facility] CenterIn the event this information is protected by the Federal Confidentiality of Alcohol and Drug Abuse Patient Records regulations: The Federal rules restrict any use of the information to criminally investigate or prosecute any alcohol or drug abuse patient.[facility] CenterIn the event this information is protected by the Federal Confidentiality of Alcohol and Drug Abuse Patient Records regulations: The Federal rules restrict any use of the information to criminally investigate or prosecute any alcohol or drug abuse patient.[facility] CenterIn the event this information is protected by the Federal Confidentiality of Alcohol and Drug Abuse Patient Records regulations: The Federal rules restrict any use of the information to criminally investigate or prosecute any alcohol or drug abuse patient.[facility] CenterIn the event this information is protected by the Federal Confidentiality of Alcohol and Drug Abuse Patient Records regulations: The Federal rules restrict any use of the information to criminally investigate or prosecute any alcohol or drug abuse patient.[facility] CenterIn the event this information is protected by the Federal Confidentiality of Alcohol and Drug Abuse Patient Records regulations: The Federal rules restrict any use of the information to criminally investigate or prosecute any alcohol or drug abuse patient.[facility] CenterIn the event this information is protected by the Federal Confidentiality of Alcohol and Drug Abuse Patient Records regulations: The Federal rules restrict any use of the information to criminally investigate or prosecute any alcohol or drug abuse patient.[facility] CenterIn the event this information is protected by the Federal Confidentiality of Alcohol and Drug Abuse Patient Records regulations: The Federal rules restrict any use of the information to criminally investigate or prosecute any alcohol or drug abuse patient.[facility] CenterIn the event this information is protected by the Federal Confidentiality of Alcohol and Drug Abuse Patient Records regulations: The Federal rules restrict any use of the information to criminally investigate or prosecute any alcohol or drug abuse patient.[facility] CenterIn the event this information is protected by the Federal Confidentiality of Alcohol and Drug Abuse Patient Records regulations: The Federal rules restrict any use of the information to criminally investigate or prosecute any alcohol or drug abuse patient.[facility] CenterIn the event this information is protected by the Federal Confidentiality of Alcohol and Drug Abuse Patient Records regulations: The Federal rules restrict any use of the information to criminally investigate or prosecute any alcohol or drug abuse patient.[facility] CenterIn the event this information is protected by the Federal Confidentiality of Alcohol and Drug Abuse Patient Records regulations: The Federal rules restrict any use of the information to criminally investigate or prosecute any alcohol or drug abuse patient.[facility] CenterIn the event this information is protected by the Federal Confidentiality of Alcohol and Drug Abuse Patient Records regulations: The Federal rules restrict any use of the information to criminally investigate or prosecute any alcohol or drug abuse patient.[facility] CenterIn the event this information is protected by the Federal Confidentiality of Alcohol and Drug Abuse Patient Records regulations: The Federal rules restrict any use of the information to criminally investigate or prosecute any alcohol or drug abuse patient.[facility] CenterIn the event this information is protected by the Federal Confidentiality of Alcohol and Drug Abuse Patient Records regulations: The Federal rules restrict any use of the information to criminally investigate or prosecute any alcohol or drug abuse patient.[facility] CenterIn the event this information is protected by the Federal Confidentiality of Alcohol and Drug Abuse Patient Records regulations: The Federal rules restrict any use of the information to criminally investigate or prosecute any alcohol or drug abuse patient.[facility] CenterIn the event this information is protected by the Federal Confidentiality of Alcohol and Drug Abuse Patient Records regulations: The Federal rules restrict any use of the information to criminally investigate or prosecute any alcohol or drug abuse patient.[facility] CenterIn the event this information is protected by the Federal Confidentiality of Alcohol and Drug Abuse Patient Records regulations: The Federal rules restrict any use of the information to criminally investigate or prosecute any alcohol or drug abuse patient.[facility] CenterIn the event this information is protected by the Federal Confidentiality of Alcohol and Drug Abuse Patient Records regulations: The Federal rules restrict any use of the information to criminally investigate or prosecute any alcohol or drug abuse patient.[facility] CenterIn the event this information is protected by the Federal Confidentiality of Alcohol and Drug Abuse Patient Records regulations: The Federal rules restrict any use of the information to criminally investigate or prosecute any alcohol or drug abuse patient.[facility] CenterIn the event this information is protected by the Federal Confidentiality of Alcohol and Drug Abuse Patient Records regulations: The Federal rules restrict any use of the information to criminally investigate or prosecute any alcohol or drug abuse patient.[facility] CenterIn the event this information is protected by the Federal Confidentiality of Alcohol and Drug Abuse Patient Records regulations: The Federal rules restrict any use of the information to criminally investigate or prosecute any alcohol or drug abuse patient.[facility] Reason for Visit (unrecogniz ed section and [...] STEM W/O CONTRAST MATERIAL Yrn Holland MD [address] [place] [address] Mr Imaging [facility] Referral ID Status Reason Start Date Expiration Date V isits Requested Visits Authorized [id number] Closed Auto-Generate d Referral 02/02/2023 03/03/2024 1 1 Reason Comments Covid Positive Reason Comments Outside Urology Reason Comments Outside [id number] Ordered PSA Reason Comments Question on a vaccine Reason Comments Follow Up Blood pressure Reason Comments Outside [id number] Ordered Reason Onset Date Comments Population Health Navigation Outreach 08/10/2024 [employer] High Risk- Attempt 1 Reason Onset Date Comments Population Health Navigation Outreach 08/16/2024 [employer] high risk attempt 2 Reason Onset Date Comments 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 Janeth sanchez Care Teams (unrecognized sec tion and content) Body Art Technician Relationship Specialty Start Date End Date Yrn Holland MD [address] [place] [address] PCP - General Family Practice 05/14/16 Body Art Technician Relationship Specialty Start Date End Date Yrn Holland MD [address] [place] [address] PCP - General Family Practice 05/14/16 Body Art Technician Relationship Specialty Start Date End Date Yrn Holland MD [facility] [place] [address] PCP - General Family Practice 05/14/16 Body Art Technician Relationship Specialty Start Date End Date Yrn Holland MD [address] [place] [address], [place] [address] PCP - General Family Medicine 05/14/16 Body Art Technician Relationship Specialty Start Date End Date Yrn Holland MD [address] [place] [address], [place] [address] PCP - General Family Medicine 05/14/16 Body Art Technician Relationship Specialty Start Date End Date Yrn Holland MD [address] [place] [address], [place] [address] PCP - General Family Medicine 05/14/16 Body Art Technician Relationship Specialty Start Date End Date Yrn Holland MD [address] [place] [address], [place] [address] PCP - General Family Medicine 05/14/16 Body Art Technician Relationship Specialty Start Date End Date Yrn Holland MD [address] [place] [address], [place] [address] PCP - General Family Medicine 05/14/16 Body Art Technician Relationship Specialty Start Date End Date Yrn Holland MD [address] [place] [address], [place] [address] PCP - General Family Medicine 05/14/16 Body Art Technician Relationship Specialty Start Date End Date Yrn Holland MD [address] [place] [address] PCP - General Family Medicine 05/14/16 Body Art Technician Relationship Specialty Start Date End Date Yrn Holland MD [address] [place] [address] PCP - General Family Medicine 05/14/16 Body Art Technician Relationship Specialty Start Date End Date Yrn Holland MD [address] [place] [address] PCP - General Family Medicine 05/14/16 Body Art Technician Relationship Specialty Start Date End Date Yrn Holland MD [address] [place] [address] PCP - General Family Medicine 05/14/16 Body Art Technician Relationship Specialty Start Date End Date Yrn Holland MD [address] [place] [address] PCP - General Family Medicine 05/14/16 Body Art Technician Relationship Specialty Start Date End Date Yrn Holland MD [address] [place] [address] PCP - General Family Medicine 05/14/16 Body Art Technician Relationship Specialty Start Date End Date Yrn Holland MD [address] [place] [address] PCP - General Family Medicine 05/14/16 Body Art Technician Relationship Specialty Start Date End Date Yrn Holland MD [address] [place] [address] PCP - General Family Medicine 05/14/16 Body Art Technician Relationship Specialty Start Date End Date Yrn Holland MD [address] [place] [address] PCP - General Family Medicine 05/14/16 Body Art Technician Relationship Specialty Start Date End Date Yrn Holland MD [address] [place] [address] PCP - General Family Medicine 05/14/16 Body Art Technician Relationship Specialty Start Date End Date Yrn Holland MD [address] [place] [address] PCP - General Family Medicine 05/14/16 Body Art Technician Relationship Specialty Start Date End Date Yrn Holland MD [address] [place] [address] PCP - General Family Medicine 05/14/16 Body Art Technician Relationship Specialty Start Date End Date Yrn Holland MD [address] [place] [address] PCP - General Family Medicine 05/14/16 Body Art Technician Relationship Specialty Start Date End Date Yrn Holland MD [address] [place] [address] PCP - General Family Medicine 05/14/16 Body Art Technician Relationship Specialty Start Date End Date Yrn Holland MD [address] [place] [address] PCP - General Family Medicine 05/14/16 Body Art Technician Relationship Specialty Start Date End Date Yrn Holland MD [address] [place] [address] PCP - General Family Medicine 05/14/16 Body Art Technician Relationship Specialty Start Date End Date Yrn Holland MD [address] [place] [address] PCP - General Family Medicine 05/14/16 Ned Munoz APRN.LIDDING MACHINE OPERATOR [address] [place] [address] [facility] 04/29/24 Felecia Quiroz PA-C [address] [place] [address] [facility] 04/29/24 Body Art Technician Relationship Specialty Start Date End Date Yrn Holland MD [address] [place] [address] PCP - General Family Medicine 05/14/16 Ned Munoz APRN.LIDDING MACHINE OPERATOR [address] [place] [address] [facility] 04/29/24 Felecia Quiroz PA-C [address] [place] [address] [facility] 04/29/24 Body Art Technician Relationship Specialty Start Date End Date Yrn Holland MD [address] [place] [address] PCP - General Family Medicine 05/14/16 Ned Munoz APRN.LIDDING MACHINE OPERATOR [address] [place] [address] [facility] 04/29/24 Felecia Quiroz PA-C [address] [place] [address] [facility] [employer] 04/29/24 Body Art Technician Relationship Specialty Start Date End Date Yrn Holland MD [address] [place] [address] PCP - General Family Medicine 08/28/24 Ned Munoz, CHEMO.LIDDING MACHINE OPERATOR [address] [place] [address] [facility] 04/29/24 Felecia Quiroz PA-C [address] [place] [address] [facility] 04/29/24 Body Art Technician Relationship Specialty Start Date End Date Yrn Holland MD [address] [place] [address] PCP - General Family Medicine 08/28/24 Ned Munoz, OUTPATIENT PSYCHIATRIST.LIDDING MACHINE OPERATOR [facility] [place] [address] [facility] Family Medicine 10/23/24 Felecia Quiroz PA-C [address] [place] [address] [facility] 10/23/24 Body Art Technician Relationship Specialty Start Date End Date Yrn Holland MD [address] [place] [address] PCP - General Family Medicine 08/28/24 Ned Munoz, OUTPATIENT PSYCHIATRIST.LIDDING MACHINE OPERATOR [address] [place] [address] [facility] 10/23/24 Felecia Quiroz PA-C [address] [place] [address] [facility] 10/23/24 Body Art Technician Relationship Specialty Start Date End Date Yrn Holland MD [address] [place] [address] PCP - General Family Medicine 08/28/24 Ned Munoz APRN.LIDDING MACHINE OPERATOR [address] [place] [address] [facility] 10/23/24 Felecia Quiroz PA-C [facility] [place] [address] [facility] 10/23/24 Body Art Technician Relationship Specialty Start Date End Date Yrn Holland MD [address] [place] [address] PCP - General Family Medicine 08/28/24 Ned Munoz APRN.LIDDING MACHINE OPERATOR [address] [place] [id number] [facility] 10/23/24 Felecia Quiroz PA-C [facility] [place] [address] [facility] 10/23/24 Body Art Technician Relationship Specialty Start Date End Date Yrn Holland MD [address] [place] [address] PCP - General Family Medicine 08/28/24 Ned Munoz APRN.LIDDING MACHINE OPERATOR [facility] [place] [address] [facility] 10/23/24 Felecia Quiroz PA-C [address] [place] [address] [facility] Body Art Technician Relationship Specialty Start Date End Date Yrn Holland MD [address] [place] [address] PCP - General Family Medicine 08/28/24 Ned Munoz APRN.LIDDING MACHINE OPERATOR [address] [place] [address] [facility] 10/23/24 Felecia Quiroz PA-C [address] [place] [address] [facility] 10/23/24 Body Art Technician Relationship Specialty Start Date End Date Yrn Holland MD [address] [place] [address] PCP - General Family Medicine 08/28/24 Ned Munoz APRN.LIDDING MACHINE OPERATOR [address] [place] [address] [facility] 10/23/24 Felecia Quiroz PA-C [address] [place] [address] [facility] 10/23/24 Body Art Technician Relationship Specialty Start Date End Date Yrn Holland MD [address] [place] [address] PCP - General Family Medicine 08/28/24 Ned Munoz APRN.LIDDING MACHINE OPERATOR [address] [place] [address] [facility] 10/23/24 Felecia Quiroz PA-C [address] [place] [address] [facility] 10/23/24 Body Art Technician Relationship Specialty Start Date End Date Yrn Holland MD [address] [place] [address] PCP - General Family Medicine 08/28/24 Ned Munoz APRN.LIDDING MACHINE OPERATOR [address] [place] [address] [facility] 10/23/24 Felecia Quiroz PA-C [facility] [place] [address] [facility] 10/23/24 Body Art Technician Relationship Specialty Start Date End Date Yrn Holland MD [address] [place] [address] PCP - General Family Medicine 08/28/24 Ned Munoz APRN.LIDDING MACHINE OPERATOR [facility] [place] [address] [facility] 10/23/24 Felecia Quiroz PA-C [address] [place] [address] [facility] 10/23/24 (unrecognized sect ion and content) No Status Records FoundNo Status Records FoundNo Status Records Found INFORMATION SOURCE (unrecogn ized section and content) DATE CREATED AUTHOR 06/17/2022 [facility] DATE CREATED AUTHOR AUTHOR'S ORGANIZ ATION 03/23/2025 [facility] DATE CREATED AUTHOR AUTHOR'S ORGANIZ ATION 03/27/2025 [facility] FOR RECORDS PERTAINING TO PATIENTS WHO ARE [...] BE BASED ON THE PRIMARY CLINICAL RECORDS. [facility] [employer] provides no warranty or guarantee of the accuracy or completeness of information in this document.
[2025-04-01 08:37] LABS: Troponin T High Sens 2 HR 14 ng/L (<=22)
[2025-04-01 09:11] VITALS: BMI 22.7
[2025-04-01 09:24] VITALS: PULSE 92; RESP 18; TEMP 36.8; O2SAT 99
--- NOTE | 2025-04-01 09:48 | ECHOD_ITS ---
Reason For Study Reason For Study: SYNCOPE/NEAR SYNCOPE Procedure This was a 2D Doppler, Color Flow transthoracic echocardiogram. The exam was of good technical quality. Exam performed portable in patient room. Left Ventricle Normal size and thickness. The left ventricular ejection fraction is 65 %. Normal diastology for age. Right Ventricle Normal right ventricle. Atria The left and right atria are normal. Prominent eustachian valve. Mitral Valve Trivial mitral valve insufficiency. Tricuspid Valve Trivial tricuspid valve insufficiency. Normal pulmonary artery pressure. Aortic Valve Trisinus/trileaflet aortic valve. Pulmonic Valve The pulmonic valve is not well visualized. Great Vessels Normal sized aortic root. Pericardium/Pleural No pericardial effusion. MMode/2D Measurements & Calculations LVIDd: 4.3 cm IVSd: 0.69 cm Ao root diam: 3.4 cm LVIDs: 2.2 cm LVPWd: 0.91 cm RVDd: 3.2 cm FS: 48.6 % LAV(MOD-bp): 42.9 ml LVAd ap4: 23.0 cm2 LVAd ap2: 27.3 cm2 LAV(MOD-bp) Indexed: 23.2 ml/m2 LVLd ap4: 7.7 cm LVLd ap2: 8.0 cm LAV(MOD-sp2): 41.0 ml EDV(MOD-sp4): 55.5 ml EDV(MOD-sp2): 77.6 ml LAV(MOD-sp4): 42.0 ml EDV(sp4-el): 58.1 ml EDV(sp2-el): 79.3 ml LVAs ap4: 12.6 cm2 LVAs ap2: 14.3 cm2 LVLs ap4: 6.6 cm LVLs ap2: 6.5 cm ESV(MOD-sp4): 21.1 ml ESV(MOD-sp2): 26.2 ml ESV(sp4-el): 20.4 ml ESV(sp2-el): 26.5 ml EF(MOD-sp4): 62.0 % EF(MOD-sp2): 66.3 % EF(sp4-el): 64.9 % SV(MOD-sp4): 34.4 ml SV(MOD-sp2): 51.4 ml SV(sp4-el): 37.7 ml SI(MOD-sp4): 18.7 ml/m2 SI(MOD-sp2): 27.9 ml/m2 LA A4 area: 16.4 cm2 LA dimension(2D): 2.4 cm RA A4 area: 11.3 cm2 TAPSE: 2.3 cm Time Measurements MV dec time: 0.22 sec Doppler Measurements & Calculations MV E max ismael: 55.2 cm/sec Lat Peak E' Ismael: 12.8 cm/sec Med Peak E' Ismael: 11.7 cm/sec MV A max ismael: 70.0 cm/sec E/E' lat: 4.3 E/E' med: 4.7 MV E/A: 0.79 Ao V2 max: 124.5 cm/sec LV V1 max: 115.3 cm/sec MV dec slope: 248.8 cm/sec2 Ao max P.2 mmHg LV V1 max P.3 mmHg Ao V2 mean: 81.6 cm/sec LV V1 mean P.5 mmHg Ao mean P.1 mmHg LV V1 mean: 72.0 cm/sec Ao V2 VTI: 22.1 cm LV V1 VTI: 18.9 cm AV (velocity ratio): 0.85 PA V2 max: 74.5 cm/sec TR max ismael: 153.9 cm/sec TR max P.5 mmHg ECHO/Echo Complete Interpretation Summary The left ventricular ejection fraction is 65 %. Ordering Physician: Tamar Syed Referring Physician: Yrn Macedo Performed By: Ching Galvin RDCS
[2025-04-01 10:32] LABS: Reflex Lactate? Y
--- NOTE | 2025-04-01 11:35 | NEURO.CONS ---
Assessment and Plan: Neuro Assessment/Plan CRISSY SALGADO is a 69 M with being evaluated by Teleneurology for passing out with resultant fall. Episode sounds like syncope and warrants further investigation. Recommend MRI brain , CT angio , EEG, Echo ,orthostatic vitals. I personally attended this patient and spent a total time of 55 minutes evaluating this patient including clinical assessment, review of chart, medical history imaging, and determining appropriate treatment and workup. HPI Consult Data Date of Consult: 04/01/25 HPI Narrative HPI Narrative: As per HPI: 69 M with a PMH as outlined who presents via the ED on 04/01/2025 with a complaitn of mechanical fall. He got up in the middle of the night to go to the bathroom. HE was found at the bottom of the stairs and his said she heard him fall. When his found him, his head and neck were pressed up against the wall and was not very responsive to his . Patient could not remember what happened.Per his , he was on several psych meds for anxiety and depression and said the meds had recently been discontinued due to patient being unstable on his feet and leaning whilst ambulating. Patient was not on any anticoagulation and said he had been noted to be having some tremors of his extremities for several months now. Review of systems was otherwise negative. Vitals in the ED at time of review were BP of 141/86, [place] of 87, RR of 22 and oxygen sats of 99% on room air. CBC showed wbc of 5.7, Hb of 14.3 and platelets of 250. INR was 1. Chemistry showed sodium of 141 potassium of 4.3 and bicarb of 22. Creatinine was 1.01. Lactic acid was 2.4 and total bilirubin was 0.22. Initial troponin was 13 and delta troponin was pending. Urinalysis showed no evidence of UTI EKG showed no acute ST changes and showed normal sinus rhythm. Serum alcohol level was less than 10. Urine tox was not done. Chest x-ray showed no acute cardiopulmonary pathology and CT of the abdomen and pelvis showed no acute abdominopelvic injuries with bilateral kidney stones with largest measuring 7 mm at the lower pole of the right kidney. CT brain showed no acute intracranial abnormalities and no acute injury to the cervical spine. Cervical spine CT showed no acute intracranial abnormalities and no acute injury to the cervical spine, and showed degenerative changes predominantly at C4-C5 where there is disc space narrowing, vertebral hypertrophy and severe bilateral foramina stenosis and moderate canal stensosis and left C5-C6 facet moint arthropathy with corresponding seere foramina stenosis. CTA chest showed no acute cardiopulmonary pathology and shoulder xray was also unremarkable. HE is being admitted to be managed for syncope and mechanical fall. [facility] Medical History Panic disorder Generalized anxiety disorder Major depressive disorder, recurrent severe without psychotic features Kidney stone Arthritis Home Medications Medication Instructions Recorded Last Taken Type multivitamin (Multiple Vitamins 1 ea PO DAILY 01/12/18 Unknown History tablet) mirtazapine 45 mg tablet 45 mg PO QHS 05/04/22 Unknown History turmeric 100 mg-betty 150 1 cap PO DAILY 05/04/22 Unknown History mg-olive 50 mg-oreg 150 mg-capryl capsule venlafaxine 150 mg 300 mg PO DAILY 05/04/22 Unknown History capsule,extended release 24 hr atorvastatin 10 mg tablet 10 mg PO DAILY 04/01/25 Unknown History bupropion HCl 150 mg 24 hr tablet, 300 mg PO DAILY 04/01/25 Unknown History extended release tamsulosin 0.4 mg capsule 0.4 mg PO QHS 04/01/25 Unknown History Allergy/AdvReac Type Severity Reaction Status Date / Time No Known Allergies Allergy Verified 05/04/22 10:34 Surgical History Hx of arthroscopy of left knee Hx of arthroscopy of right knee Social History household members: spouse Smoking Status: Never smoker substance use type: does not use Vital Signs Vital Signs Vital Signs: 04/01/25 06:19 04/01/25 06:36 04/01/25 07:03 Temperature 98.1 F Temperature Source Oral Pulse Rate 87 89 Pulse Strength Respiratory Rate 29 H 23 H Respiratory Effort Normal Non-Labored Respiratory Depth Normal Respiratory Pattern Tachypnea Blood Pressure 127/82 H 151/94 H Blood Pressure Mean 97 113 Blood Pressure Source Blood Pressure Position Blood Pressure Location Pulse Ox 100 100 Oxygen Delivery Method Room Air Room Air 04/01/25 08:00 04/01/25 08:05 11/09/25 09:24 Temperature 98.3 F 98.3 F Temperature Source Temporal Pulse Rate 87 87 92 Pulse Strength Respiratory Rate 22 H 22 H 18 Respiratory Effort Respiratory Depth Respiratory Pattern Blood Pressure 141/86 H 141/86 H Blood Pressure Mean 104 104 Blood Pressure Source Monitor Blood Pressure Position Supine Blood Pressure Location Left Arm Pulse Ox 99 99 99 Oxygen Delivery Method Room Air Room Air 04/01/25 09:33 Temperature Temperature Source Pulse Rate Pulse Strength Normal (2+) Respiratory Rate Respiratory Effort Respiratory Depth Respiratory Pattern Blood Pressure Blood Pressure Mean Blood Pressure Source Blood Pressure Position Blood Pressure Location Pulse Ox Oxygen Delivery Method Weight Weight: 69.8 kg Body Mass Index (BMI) 22.7 EEG Results Procedure Details EEG Procedure Details: CRISSY SALGADO is a 69 year old M with a past medical history of , who presents for evaluation of Electroencephalogram on DATE at TIME Physical Exam Neuro Neuro Narrative: - General: Laying comfortably in bed; in no acute distress. - HENT: Normal oropharynx and mucosa. Normal external appearance of ears and nose. Exophthalmos. - Neck: Supple, no pain or tenderness - CV: No peripheral edema. - Pulmonary: Normal respiratory effort. - Ext: No cyanosis, edema, or deformity - Skin: No rash. Normal palpation of skin. - Musculoskeletal: full range of motion; no joint tenderness. Normal digits and nails by inspection. No clubbing. - NEURO: - Mental Status: The patient was alert and oriented to time, place, and person. Normal recent/remote memory, concentration, and general fund of knowledge. - Language: speech is fluent.. Naming, repetition, fluency, and comprehension intact. - Cranial Nerves: PERRL 3 mm/brisk. EOMI, visual naqvi full, no facial asymmetry, facial sensation intact, hearing intact, tongue midline, no evidence of atrophy or fibrillations. As performed by the nurse. Sternocleidomastoid and trapezius were equally strong. Soft palate raises equally, no uvular deviations - Motor: normal bulk, tone, and strength throughout. No pronator drift or satelliting. Upper and lower extremities equal bilaterally. - Tone: is normal and bulk is normal - Sensation- Intact to light touch bilaterally - Coordination: No dysmetria on [id number], finger follow finger or [id number]. - Lab / Micro Data 04/01/25 06:20 04/01/25 06:20 Labs: Laboratory Results - last 24 hr 04/01/25 06:20: WBC 5.7, RBC 4.84, Hgb 14.3, Hct 43.6, MCV 90.1, MCH 29.5, MCHC 32.8, RDW Std Deviation 42.5, RDW Coeff of Rishi 12.9, Plt Count 250, MPV 9.1, Immature Gran % (Auto) 1.200 H, Neut % (Auto) 63.1, Lymph % (Auto) 21.6, [place] % (Auto) 10.9 H, Eos % (Auto) 2.1, Baso % (Auto) 1.1 H, Absolute Neuts (auto) 3.6, Absolute Lymphs (auto) 1.23, Nucleated RBC % 0, PT 13.4, INR 1.0, APTT 24.5, Sodium 141, Potassium 4.3, Chloride 107, Carbon Dioxide 22.2, Anion Gap 12, BUN 18, Creatinine 1.01, Estim Creat Clear Calc 71.27, Est GFR (MDRD) Non-Af 81, BUN/Creatinine Ratio 17.8, Glucose 118 H, Lactic Acid 2.4 H*, Calcium 9.1, Total Bilirubin 0.22, AST 35, ALT 46, Alkaline Phosphatase 123, Troponin T High Sens 13, NT pro BNP II < 36, Total Protein 6.9, Albumin 4.1, Globulin 2.8, Albumin/Globulin Ratio 1.5, Ethyl Alcohol < 10.1 04/01/25 06:30: Urine Color Yellow, Urine Clarity Clear, Urine pH 6.0, Ur Specific [place] 1.025, Urine Protein 15 H, Urine Glucose (UA) Normal, Urine Ketones Negative, Urine Occult Blood 10 H, Urine Nitrite Negative, Urine Bilirubin Negative, Urine Urobilinogen Normal, Ur Leukocyte Esterase Negative, Urine RBC 0 SEEN, Urine WBC 0-5 SEEN, Ur Squamous Epith Cells 0 SEEN, Urine Bacteria 0 SEEN, Urine Mucus 0 SEEN 04/01/25 07:49: Troponin T Hi Sens 2 Hr 14 04/01/25 10:44: Lactic Acid < 1.0 Imaging Radiology Impression Chest X-Ray 04/01/25 06:24 IMPRESSION: No acute cardiopulmonary abnormalities. Reading Location: [id number] Abdomen/Pelvis CT 04/01/25 06:35 IMPRESSION: No acute abdominopelvic injuries. Bilateral kidney stones with the largest measures 7 mm at the lower pole of the right kidney. No hydronephrosis Reading Location: [id number] Brain CT 04/01/25 06:35 IMPRESSION: No acute intracranial abnormalities. No acute injury to the cervical spine. Reading Location: [id number] Cervical Spine CT 04/01/25 06:35 IMPRESSION: No acute intracranial abnormalities. No acute injury to the cervical spine. Reading Location: [id number] Chest CTA 04/01/25 06:35 IMPRESSION: No acute cardiopulmonary abnormalities. Reading Location: [id number] Shoulder X-Ray 04/01/25 06:54 IMPRESSION: No acute osseous abnormalities. Reading Location: [facility] Active Medications Active Medications Active Medications: Current Medications Generic Name Dose Route Start Last Admin Trade Name Freq PRN Reason Stop Dose Admin Acetaminophen 650 mg 04/01/25 09:48 Acetaminophen 325 Mg Tablet PO Q6H PRN PRN Pain 1-10 Or Fever >100.7 Atorvastatin Calcium 10 mg 04/01/25 22:00 Atorvastatin Calcium 10 Mg Tablet PO QHS LALITO Bupropion HCl 300 mg 04/01/25 10:00 Bupropion (Xl) 300 Mg Tablet.Xl PO DAILY LALITO Sodium Chloride 1,000 mls @ 125 mls/hr 04/01/25 09:50 IV 04/02/25 01:49 .Q8H LALITO Influenza Virus Vaccine 180 mcg 04/02/25 10:00 Flu Vaccine High Dose 25-26(65yr Up) 180 Mcg/0.5 Ml Syringe IM 04/02/25 10:01 .ONCE ONE Mirtazapine 45 mg 04/01/25 22:00 Mirtazapine 15 Mg Tablet PO QHS [facility] Morphine Sulfate 2 - 4 mg 04/01/25 09:48 Morphine 2 Mg/Ml Syringe IV Q3H PRN PRN Pain Score 6-10 Multivitamins 1 tablet 04/01/25 10:00 [facility] Nitroglycerin 0.4 mg 04/01/25 09:48 Nitroglycerin (Inpatient Use) 0.4 Mg Tab.Subl SL Q5M PRN CARDIAC/CHEST PAIN Ondansetron HCl 4 mg 04/01/25 09:48 Ondansetron 4 Mg/2 Ml Vial IV Q8H PRN PRN NAUSEA/VOMITING Oxycodone HCl 5 mg 04/01/25 09:48 Oxycodone 5 Mg Tablet PO Q4H PRN PRN Pain Score 4-10 Sodium Chloride 10 - 40 ml 04/01/25 09:18 0.9% Saline Lock 10 Ml Syringe IV UD PRN SALINE FLUSH Tamsulosin HCl 0.4 mg 04/01/25 22:00 Tamsulosin Hcl 0.4 Mg Capsule PO QHS [facility] Venlafaxine HCl 300 mg 04/01/25 10:00 Venlafaxine Xr 150 Mg Capsule PO DAILY [facility]
[2025-04-01] MEDS: buPROPion (XL) 300 MG TABLET.XL PO (11:38)
[2025-04-01] MEDS: 0.9% Normal Saline (1000mL) 1,000 ML 125 ML IV ×2 (11:54→19:25)
[2025-04-01 20:15] VITALS: BP 149/95; PULSE 94; RESP 18; TEMP 36.9; O2SAT 97
[2025-04-02 03:00] VITALS: BP 122/73; PULSE 75; RESP 18; TEMP 36.6; O2SAT 94
[2025-04-02 06:40] LABS: Hematocrit 36.7 % (40-54); Hemoglobin 12.0 g/dL (13.0-16.5); Immature Granulocytes Count 0.030 X10^3/uL (0.0-0.0); Mean Corp Hgb Conc 32.7 g/dL (32-36); Mean Corpuscular Volume 91.1 fL (80-94); Mean Platelet Vol. 9.0 fl (6.2-12.0); NRBC Flagged by Analyzer 0.4 % (0-5); Platelet Count 207 K/mm3 (150-450); RBC Distribution Width CV 13.1 % (11.6-14.6); RBC Distribution Width SD 43.2 fl (35.1-43.9); Red Blood Count 4.03 M/mm3 (4.6-6.2); White Blood Count 5.3 K/mm3 (4.4-11.0)
[2025-04-02 07:03] LABS: Anion Gap 8 (5-15); BUN 15 mg/dL (4-19); BUN/Creat Ratio 18.1 RATIO (10-20); Calcium,Total 8.4 mg/dL (7.6-11.0); Carbon Dioxide 22.0 mmol/L (21.0-32.0); Chloride 109 mmol/L (98-108); Estimated Creatinine Clearance 80.98 ml/min (50-250); Glucose 107 mg/dL (70-99); Potassium 4.1 mmol/L (3.3-5.1)
[2025-04-02 08:06] VITALS: BP 118/74; BP 143/81; BP 144/81; PULSE 87; PULSE 90; PULSE 95
--- NOTE | 2025-04-02 08:06 | MRI_ITS ---
EXAM: BRAIN W/WO CONTRAST CLINICAL HISTORY: SYNCOPE COMPARISON: None. TECHNIQUE: Multiplanar, multisequence MR images of the brain were obtained without and with 14 cc gadolinium contrast material. FINDINGS: No intracranial hemorrhage, mass, mass effect, midline shift or pathologic extra- axial fluid collection. No hydrocephalus. Preservation of the bryson- white parenchymal differentiation. No areas of restricted diffusion to suggest acute ischemia or infarction. No gradient signal blooming artifacts are identified. No cerebellar tonsillar ectopia. No sellar/suprasellar signal abnormalities. The ocular globes and intraorbital soft tissues are symmetrically unremarkable. There is mucosal thickening in the floor of the right and left maxillary sinus. There is fluid density in a portion of the left mastoid air cells. Subcutaneous edema is present in the left frontal region with no discrete hematoma. MRI/Brain W/WO Contrast IMPRESSION: Negative MRI of the brain. There is mucosal thickening in the floor of the right and left maxillary sinus. There is fluid density in a portion of the left mastoid air cells, with mastoid itis. Subcutaneous edema is present in the left frontal region with no discrete hemat fabby. Reading Location: [facility]
[2025-04-02 08:37] VITALS: BP 143/81; PULSE 87; RESP 14; TEMP 36.5; O2SAT 99
[2025-04-02] MEDS: buPROPion (XL) 300 MG TABLET.XL PO (08:58)
--- NOTE | 2025-04-02 09:40 | RAD_ITS ---
PROCEDURE: HAND MIN 3 VIEWS 04/02/2025 REASON FOR EXAM: L WRIST PAIN AND SWELLING TECHNIQUE: Procedure Code: YURY Modality: DX Procedure: HAND MIN 3 VIEWS Laterality: Left COMPARISON: None FINDINGS: Bones: Decreased bone mineralization is present. There is possibly a very tiny fracture at the lateral margin of the ulnar styloid seen on the AP view. Additionally, on the AP view there is a linear lucency oriented vertically through the distal radius consistent with a nondisplaced fracture. Joints: Joint space narrowing, sclerosis and osteophyte formation between the distal pole scaphoid, trapezium and trapezoid. Soft tissues: Atherosclerotic disease is present. Soft tissue swelling of the hand and wrist. Other: No foreign body RAD/Hand Min 3 Views IMPRESSION: 1. Nondisplaced fracture distal radius with intra-articular extension. 2. Minimal fracture of the ulnar styloid. 3. Decreased bone mineralization. 4. Soft tissue swelling. Atherosclerosis. Reading Location: [id number]
--- NOTE | 2025-04-02 10:09 | PN_ITS ---
Subjective Subjective Patient seen and examined. His was by his bedside. Patient is more alert and communicative today. He was sitting up by the bedside. He had no active complaints. Review of systems otherwise negative. Orthostatics checked this morning are positive. Left periorbital hematoma is resolving. Objective Data Objective Data Vital Signs: Vital Signs Temp Pulse Resp BP Pulse Ox O2 Del Method 97.7 F L 87 14 143/81 H 99 Room Air 04/02/25 08:37 04/02/25 08:37 04/02/25 08:37 04/02/25 08:37 04/02/25 08:37 04/02/25 08:37 Oxygen Delivery Method Room Air Weight: 153 lb 14.122 oz Body Mass Index (BMI) 22.7 Intake & Output: Intake and Output for Last 24 Hours 03/31/25 04/01/25 04/02/25 23:59 23:59 23:59 Intake Total 1939.58 / 2359.58 1378.33 / 1378.33 Output Total 1500 / 1500 Balance 1939.58 / 1159.58 -121.67 / -121.67 Lab / Micro Data 04/02/25 06:24 04/02/25 06:24 Labs: Laboratory Results - last 24 hr 04/01/25 10:44: Lactic Acid < 1.0 04/02/25 06:24: WBC 5.3, RBC 4.03 L, Hgb 12.0 L, Hct 36.7 L, MCV 91.1, MCH 29.8, MCHC 32.7, RDW Std Deviation 43.2, RDW Coeff of Rishi 13.1, Plt Count 207, MPV 9.0, Immature Gran % (Auto) 0.600, Neut % (Auto) 73.0 H, Lymph % (Auto) 13.5 L, [place] % (Auto) 10.1 H, Eos % (Auto) 2.1, Baso % (Auto) 0.7, Absolute Neuts (auto) 3.9, Absolute Lymphs (auto) 0.72 L, Nucleated RBC % 0.4, Sodium 139, Potassium 4.1, Chloride 109 H, Carbon Dioxide 22.0, Anion Gap 8, BUN 15, Creatinine 0.85, Estim Creat Clear Calc 80.98, Est GFR (MDRD) Non-Af 94, BUN/Creatinine Ratio 18.1, Glucose 107 H, Calcium 8.4 Radiography Diagnostic Testing: Radiology Impression Hand X-Ray 04/02/25 09:40 IMPRESSION: 1. Nondisplaced fracture distal radius with intra-articular extension. 2. Minimal fracture of the ulnar styloid. 3. Decreased bone mineralization. 4. Soft tissue swelling. Atherosclerosis. Reading Location: [facility] Physical Exam Const alert General Appearance: cooperative Orientation / Consciousness: lethargic HEENT normocephalic, hearing grossly normal bilaterally and moist oral mucous membranes HEENT Narrative: left eye brow laceration sutured; left periorbital hematoma is resolving Eyes EOMs intact bilaterally and conjunctivae normal Neck supple and no JVD Resp normal respiratory effort, no use of accessory muscles and clear to auscultation bilaterally Cardio regular rate, regular rhythm, S1 normal heart sound, S2 normal heart sound and no murmurs GI normal to inspection, nondistended, normoactive bowel sounds, soft to palpation, non-tender and non-distended Extremity normal to inspection, full ROM, normal capillary refill and no clubbing, cyanosis or edema General Extremity: no tenderness to palpation of joints or extremities Skin General Skin Exam: no breakdown Neuro oriented x3 and moves all extremities Sensorium / Orientation: awake and alert Psych cooperative Psych Narrative: flat affect Assessment & Plan Assessment/Plan (1) Laceration of eyebrow, left: (2) Loss of consciousness: (3) Syncope: PLAN: Plan #Syncope with resultant mechanical fall * patient more alert and communicative today. * Patient does not member what happened but according to his he got up to go to the bathroom and the next thing she heard was a loud crash and found patient at the bottom of the stairs. Patient was unresponsive but subsequently came around. * CT brain showed no acute intracranial pathology. CTA head and neck showed no hemodynamically significant stenosis * he sustained a left eyebrow laceration with resultant periorbital hematoma. Eyebrow laceration was sutured. * Abdominal pelvic CT and chest x-ray as well as cervical spine CT and shoulder x-ray did not show any acute pathology. * MRI of the brain and EEG ordered and pending * neurology on board; appreciate rec's. Neuro recommending CTA chest, EEG, echo, MRI brain and orthos. * 2D echo already ordered. CTA chest done on admission showed no acute cardiopulmonary pathology. * fall precautions * #Hyperlipidemia: on high intensity statin #Depression: on mirtazapine and venlafaxine #BPH: on flomax DVT prophylaxis: SCDs. No anticoagulation o/a of periorbital hematoma Code status: full code * Charges/Coding Visit Charges Inpatient E&M: 37692 Subs Hosp L2
--- NOTE | 2025-04-02 10:18 | CASEMGMT ---
GAXIOLA Met with patient to complete GAXIOLA form. GAXIOLA form and its content were verbally explained and patient's questions were answered to the best of my ability. Patient voiced understanding and signed GAXIOLA form. Patient provided a copy of signed GAXIOLA form and original placed in patient's chart. Patient had no further questions. Linda Rome, Discharge Planning Ass
[2025-04-02] MEDS: FLU VACCINE HIGH DOSE 25-26(65YR UP) 180 MCG/0.5 ML SYRINGE IM (10:59)
[2025-04-02] MEDS: 0.9% Normal Saline (1000mL) 1,000 ML 125 ML IV ×2 (14:54→22:54)
[2025-04-02] MEDS: 0.9% Saline Lock 10 ML Syringe IV (14:54)
[2025-04-02 14:55] VITALS: BP 121/70; PULSE 91; RESP 16; TEMP 36.6; O2SAT 98
--- NOTE | 2025-04-02 16:16 | CHAPLAIN ---
Type of Pastoral Visit _x__ Initial Visit ___ Follow-up Visit ___ On-call Visit ___ General Patient Visit ___ Spiritual Assessment ___ Family Conference ___ Bereavement ___ Rapid Response ___ Code Blue ___ Other (describe below) Pastoral Care Referral From _x__ Patient ___ Family ___ Nurse ___ Physician ___ Head Of Insight ___ Process Mold Technician ___ Other (describe below) Sacrament/Intervention _x__ Active listening ___ Anointing ___ Christian ___ Bereavement ___ Communion ___ Harriet exploration ___ ___ Life review ___ Prayer ___ Reconciliation ___ Sacrament of Sick _x__ Supportive presence ___ Wedding ___ Other (describe below) Pastoral Comments patient and spouse are in the room; pt acknowledges his fall and both speak of the unknown reason/cause of the fall; pt has injuries but is hoping to be released yet today; pt states that he has had many tests and is just waiting to find out what the decisions are for him; pt denies further worries
[2025-04-02 21:38] VITALS: BP 139/82; PULSE 85; RESP 16; TEMP 36.4; O2SAT 99
[2025-04-03 03:30] VITALS: BP 151/82; PULSE 77; RESP 16; TEMP 36.6; O2SAT 99
[2025-04-03 05:39] LABS: Hematocrit 35.7 % (40-54); Hemoglobin 11.7 g/dL (13.0-16.5); Immature Granulocytes Count 0.020 X10^3/uL (0.0-0.0); Mean Corp Hgb Conc 32.8 g/dL (32-36); Mean Corpuscular Volume 89.7 fL (80-94); Mean Platelet Vol. 9.1 fl (6.2-12.0); NRBC Flagged by Analyzer 0 % (0-5); Platelet Count 207 K/mm3 (150-450); RBC Distribution Width CV 12.9 % (11.6-14.6); RBC Distribution Width SD 42.4 fl (35.1-43.9); Red Blood Count 3.98 M/mm3 (4.6-6.2); White Blood Count 5.1 K/mm3 (4.4-11.0)
[2025-04-03 06:15] LABS: Anion Gap 8 (5-15); BUN 12 mg/dL (4-19); BUN/Creat Ratio 15.1 RATIO (10-20); Calcium,Total 8.4 mg/dL (7.6-11.0); Carbon Dioxide 22.0 mmol/L (21.0-32.0); Chloride 112 mmol/L (98-108); Estimated Creatinine Clearance 86.04 ml/min (50-250); Glucose 102 mg/dL (70-99); Potassium 3.8 mmol/L (3.3-5.1)
[2025-04-03 08:47] VITALS: BP 152/74; PULSE 87; RESP 14; TEMP 36.5; O2SAT 99
[2025-04-03] MEDS: buPROPion (XL) 300 MG TABLET.XL PO (08:50)
--- NOTE | 2025-04-03 12:33 | PN_ITS ---
Subjective Subjective Patient seen and examined with his nurse by his bedside.. His was by his bedside. He still complained of pain and swelling in his left wrist. Imaging done did show distal radial fracture. Orthopedics consulted. Review of systems otherwise negative. Objective Data Objective Data Vital Signs: Vital Signs Temp Pulse Resp BP Pulse Ox O2 Del Method 97.7 F L 87 14 152/74 H 99 Room Air 04/03/25 08:47 04/03/25 08:47 04/03/25 08:47 04/03/25 08:47 04/03/25 08:47 04/03/25 08:47 Oxygen Delivery Method Room Air Weight: 153 lb 14.122 oz Body Mass Index (BMI) 22.7 Intake & Output: Intake and Output for Last 24 Hours 04/01/25 04/02/25 04/03/25 23:59 23:59 23:59 Intake Total 1939.58 / 2359.58 2978.33 / 2978.33 1000 / 1000 Output Total 2100 / 2350 650 / 650 Balance 1939.58 / 1159.58 878.33 / 628.33 350 / 350 Lab / Micro Data 04/03/25 05:09 04/03/25 05:09 Labs: Laboratory Results - last 24 hr 04/03/25 05:09: WBC 5.1, RBC 3.98 L, Hgb 11.7 L, Hct 35.7 L, MCV 89.7, MCH 29.4, MCHC 32.8, RDW Std Deviation 42.4, RDW Coeff of Rishi 12.9, Plt Count 207, MPV 9.1, Immature Gran % (Auto) 0.400, Neut % (Auto) 69.6, Lymph % (Auto) 15.6 L, M ad[place] % (Auto) 10.7 H, Eos % (Auto) 2.9, Baso % (Auto) 0.8, Absolute Neuts (auto) 3.6, Absolute Lymphs (auto) 0.80 L, Nucleated RBC % 0, Sodium 142, Potassium 3.8, Chloride 112 H, Carbon Dioxide 22.0, Anion Gap 8, BUN 12, Creatinine 0.77, Estim Creat Clear Calc 86.04, Est GFR (MDRD) Non-Af 97, BUN/Creatinine Ratio 15.1, Glucose 102 H, Calcium 8.4 Radiography Diagnostic Testing: Radiology Impression Echocardiogram 04/01/25 09:48 Interpretation Summary The left ventricular ejection fraction is 65 %. Ordering Physician: Tamar Syed Referring Physician: Yrn Macedo Performed By: Ching Galvin RDCS Brain MRI 04/02/25 08:06 IMPRESSION: Negative MRI of the brain. There is mucosal thickening in the floor of the right and left maxillary sinus. There is fluid density in a portion of the left mastoid air cells, with mastoiditis. Subcutaneous edema is present in the left frontal region with no discrete hematoma. Reading Location: [facility] Physical Exam Const alert General Appearance: cooperative Orientation / Consciousness: lethargic HEENT normocephalic, hearing grossly normal bilaterally and moist oral mucous membranes Eyes EOMs intact bilaterally and conjunctivae normal Neck supple and no JVD Resp normal respiratory effort, no use of accessory muscles and clear to auscultation bilaterally Cardio regular rate, regular rhythm, S1 normal heart sound, S2 normal heart sound and no murmurs GI normal to inspection, nondistended, normoactive bowel sounds, soft to palpation, non-tender and non-distended Extremity normal to inspection Extremity Narrative: left wrist is swollen, tender, unable to flex fully at wrist, mild erythema Skin General Skin Exam: no breakdown Neuro oriented x3 and no focal motor deficits Sensorium / Orientation: awake and alert Psych cooperative Psych Narrative: flat affect Assessment & Plan Assessment/Plan (1) Laceration of eyebrow, left: (2) Loss of consciousness: (3) Syncope: PLAN: Plan #Syncope with resultant mechanical fall * patient more alert and communicative today. * Patient does not member what happened but according to his he got up to go to the bathroom and the next thing she heard was a loud crash and found patient at the bottom of the stairs. Patient was unresponsive but subsequently came around. * CT brain showed no acute intracranial pathology. CTA head and neck showed no hemodynamically significant stenosis * he sustained a left eyebrow laceration with resultant periorbital hematoma. Eyebrow laceration was sutured. * Abdominal pelvic CT and chest x-ray as well as cervical spine CT and shoulder x-ray did not show any acute pathology. * MRI of the brain showed no acute pathology and just showed some left mastoiditis. EEG has been ordered and read is pending. * neurology on board; appreciate rec's. Neuro recommending CTA chest, EEG, echo, MRI brain and orthos. * Orthostatics were positive so patient hydrated with IV fluids. * 2D echo showed EF of 65% with no acute wall motion abnormalities. * fall precautions * * #Left wrist fracture * Patient complained of pain and swelling in the left wrist yesterday. X-ray done showed nondisplaced fracture of the distal radius with intra-articular extension and minimal fracture of the ulnar styloid * Orthopedic surgery consulted. Will place left wrist in a brace. PT OT on board. On p.o. Tylenol, oxycodone and IV morphine as needed for pain * #Hyperlipidemia: on high intensity statin #Depression: on mirtazapine and venlafaxine #BPH: on flomax DVT prophylaxis: SCDs. No anticoagulation o/a of periorbital hematoma Code status: full code * Charges/Coding Visit Charges Inpatient E&M: 71670 Subs Hosp L2
[2025-04-03 14:45] VITALS: BP 120/72; PULSE 88; RESP 16; TEMP 36.8; O2SAT 98
[2025-04-03 20:57] VITALS: BP 139/85; PULSE 85; RESP 16; TEMP 36.4; O2SAT 99
[2025-04-04 03:30] VITALS: BP 142/85; PULSE 85; RESP 16; TEMP 36.6; O2SAT 98
[2025-04-04 06:11] LABS: Hematocrit 36.6 % (40-54); Hemoglobin 12.4 g/dL (13.0-16.5); Immature Granulocytes Count 0.020 X10^3/uL (0.0-0.0); Mean Corp Hgb Conc 33.9 g/dL (32-36); Mean Corpuscular Volume 89.1 fL (80-94); Mean Platelet Vol. 9.0 fl (6.2-12.0); NRBC Flagged by Analyzer 0 % (0-5); Platelet Count 206 K/mm3 (150-450); RBC Distribution Width CV 13.0 % (11.6-14.6); RBC Distribution Width SD 42.1 fl (35.1-43.9); Red Blood Count 4.11 M/mm3 (4.6-6.2); White Blood Count 5.2 K/mm3 (4.4-11.0)
[2025-04-04 06:49] LABS: Anion Gap 10 (5-15); BUN 17 mg/dL (4-19); BUN/Creat Ratio 19.9 RATIO (10-20); Calcium,Total 8.8 mg/dL (7.6-11.0); Carbon Dioxide 24.2 mmol/L (21.0-32.0); Chloride 105 mmol/L (98-108); Estimated Creatinine Clearance 82.93 ml/min (50-250); Glucose 103 mg/dL (70-99); Potassium 4.0 mmol/L (3.3-5.1)
[2025-04-04 08:05] VITALS: BP 146/78; PULSE 88; RESP 16; TEMP 36.2; O2SAT 97
[2025-04-04] MEDS: buPROPion (XL) 300 MG TABLET.XL PO (08:11)
[2025-04-04 16:07] VITALS: BP 129/78; PULSE 90; RESP 16; TEMP 36.4; O2SAT 99
--- NOTE | 2025-04-04 17:02 | PN_ITS ---
Subjective Subjective Patient seen and examined with his nurse by his bedside. His was by his bedside. He had no active complaints. The pain and swelling in his left arm had improved. says she had gotten him a brace from [employer] which patient had on. Review of systems otherwise negative. He is awaiting orthopedic evaluation. He has remained hemodynamically stable. Objective Data Objective Data Vital Signs: Vital Signs Temp Pulse Resp BP Pulse Ox O2 Del Method 97.5 F L 90 16 129/78 H 99 Room Air 04/04/25 16:07 04/04/25 16:07 04/04/25 16:07 04/04/25 16:07 04/04/25 16:07 04/04/25 16:07 Oxygen Delivery Method Room Air Weight: 153 lb 14.122 oz Body Mass Index (BMI) 22.7 Intake & Output: Intake and Output for Last 24 Hours 04/02/25 04/03/25 04/04/25 23:59 23:59 23:59 Intake Total 2978.33 / 2978.33 1560 / 1560 350 / 350 Output Total 2100 / 2350 950 / 950 Balance 878.33 / 628.33 610 / 610 350 / 350 Lab / Micro Data 04/04/25 05:55 04/04/25 05:55 Labs: Laboratory Results - last 24 hr 04/04/25 05:55: WBC 5.2, RBC 4.11 L, Hgb 12.4 L, Hct 36.6 L, MCV 89.1, MCH 30.2, MCHC 33.9, RDW Std Deviation 42.1, RDW Coeff of Rishi 13.0, Plt Count 206, MPV 9.0, Immature Gran % (Auto) 0.400, Neut % (Auto) 66.4, Lymph % (Auto) 18.3 L, M [place] % (Auto) 11.0 H, Eos % (Auto) 3.1, Baso % (Auto) 0.8, Absolute Neuts (auto) 3.5, Absolute Lymphs (auto) 0.95, Nucleated RBC % 0, Sodium 139, Potassium 4.0, Chloride 105, Carbon Dioxide 24.2, Anion Gap 10, BUN 17, Creatinine 0.83, Estim Creat Clear Calc 82.93, Est GFR (MDRD) Non-Af 95, BUN/Creatinine Ratio 19.9, G lucose 103 H, Calcium 8.8 Physical Exam Const alert and oriented x3 General Appearance: cooperative HEENT normocephalic, hearing grossly normal bilaterally and moist oral mucous membranes Eyes EOMs intact bilaterally and conjunctivae normal Neck supple and no JVD Resp normal respiratory effort, normal air movement, no use of accessory muscles and clear to auscultation bilaterally Cardio regular rate, regular rhythm, S1 normal heart sound, S2 normal heart sound and no murmurs GI normal to inspection, nondistended, normoactive bowel sounds, soft to palpation, non-tender and non-distended Extremity Extremity Narrative: left wrist is in a brace, swelling and erythema have improved. General Extremity: no tenderness to palpation of joints or extremities Skin General Skin Exam: no breakdown Neuro oriented x3, moves all extremities and no focal motor deficits Sensorium / Orientation: awake and alert Psych cooperative Psych Narrative: flat affect Assessment & Plan Assessment/Plan (1) Laceration of eyebrow, left: (2) Loss of consciousness: (3) Syncope: PLAN: Plan #Syncope with resultant mechanical fall * patient more alert and communicative today. * Patient does not member what happened but according to his he got up to go to the bathroom and the next thing she heard was a loud crash and found patient at the bottom of the stairs. Patient was unresponsive but subsequently came around. * CT brain showed no acute intracranial pathology. CTA head and neck showed no hemodynamically significant stenosis * he sustained a left eyebrow laceration with resultant periorbital hematoma. Eyebrow laceration was sutured. * Abdominal pelvic CT and chest x-ray as well as cervical spine CT and shoulder x-ray did not show any acute pathology. * MRI of the brain showed no acute pathology and just showed some left mastoiditis. EEG was normal * neurology on board; appreciate rec's. * Orthostatics were positive so patient hydrated with IV fluids. * 2D echo showed EF of 65% with no acute wall motion abnormalities. * fall precautions * * #Left wrist fracture * Patient complained of pain and swelling in the left wrist yesterday. X-ray done showed nondisplaced fracture of the distal radius with intra-articular extension and minimal fracture of the ulnar styloid * Orthopedic surgery consulted; await recs. I spoke to Dr Barbosa this morning and he will come see the patient. Will place left wrist in a brace. PT OT on board. On p.o. Tylenol, oxycodone and IV morphine as needed for pain * #Hyperlipidemia: on high intensity statin #Depression: on mirtazapine and venlafaxine #BPH: on flomax DVT prophylaxis: SCDs. No anticoagulation o/a of periorbital hematoma Code status: full code * Disposition: Anticipate discharge home pending orthopedic evaluation. Charges/Coding Visit Charges Inpatient E&M: 93259 Subs Hosp L2
--- NOTE | 2025-04-04 17:11 | CON.PCM.OR_ITS ---
HPI Consult Data Date of Consult: 04/04/25 HPI Narrative Reason for Consultation: Left distal radius fracture HPI Narrative: CRISSY SALGADO, is a 69 M who presented to [facility] 04/01/2025.After being found at the bottom of the stairs by his . He does not recall getting up out of bed prior to that. Denies any history of sleepwalking or delirium. Denies any substance use or medication changes. He was brought to the emergency department and admitted for workup of syncope and/or confusion state. He sustained a laceration to his left eyebrow which was repaired in the emergency department. It was noted the following day that he had some left wrist pain and an x-ray was obtained. A nondisplaced distal radius fracture was identified. He denies any problems with his left wrist prior to the injury. Denies any numbness or tingling. He is placed in a wrist brace and orthopedics was consulted. [facility] Medical History Panic disorder Generalized anxiety disorder Major depressive disorder, recurrent severe without psychotic features Kidney stone Arthritis Home Medications Medication Instructions Recorded Last Taken Type multivitamin (Multiple Vitamins 1 ea PO DAILY 01/12/18 Unknown History tablet) mirtazapine 45 mg tablet 45 mg PO QHS 05/04/22 Unknow n History turmeric 100 mg-betty 150 1 cap PO DAILY 05/04/22 Unk nown History mg-olive 50 mg-oreg 150 mg-capryl capsule venlafaxine 150 mg 300 mg PO DAILY 05/04/22 Unk nown History capsule,extended release 24 hr atorvastatin 10 mg tablet 10 mg PO DAILY 04/01/25 Unkn own History bupropion HCl 150 mg 24 hr tablet, 300 mg PO DAILY 02/15 Unknown History extended release tamsulosin 0.4 mg capsule 0.4 mg PO QHS 04/01/25 Unkno wn History Allergy/AdvReac Type Severity Reaction Status Date / Time No Known Allergies Allergy Verified 05/04/22 10:34 Surgical History Hx of arthroscopy of left knee Hx of arthroscopy of right knee Social History household members: spouse Smoking Status: Never smoker substance use type: does not use Vital Signs Vital Signs Vital Signs: 04/03/25 20:57 04/03/25 22:00 04/03/25 22:00 Temperature 97.6 F L Temperature Source Oral Pulse Rate 85 Pulse Strength Weak (1+) Respiratory Rate 16 Respiratory Effort Normal Non-Labored Respiratory Depth Normal Respiratory Pattern Normal Blood Pressure 139/85 H Blood Pressure Mean 103 Blood Pressure Source Monitor Blood Pressure Position Semi-Fowlers Blood Pressure Location Right Arm Pulse Ox 99 Oxygen Delivery Method Room Air Room Air 04/04/25 03:30 04/04/25 04:00 04/04/25 08:05 Temperature 97.8 F 97.1 F L Temperature Source Temporal Temporal Pulse Rate 85 88 Pulse Strength Respiratory Rate 16 16 Respiratory Effort Normal Non-Labored Respiratory Depth Normal Respiratory Pattern Normal Blood Pressure 142/85 H 146/78 H Blood Pressure Mean 104 100 Blood Pressure Source Monitor Monitor Blood Pressure Position Semi-Fowlers Semi-Fowlers Blood Pressure Location Left Arm Right Arm Pulse Ox 98 97 Oxygen Delivery Method Room Air Room Air Room Air 04/04/25 16:07 Temperature 97.5 F L Temperature Source Temporal Pulse Rate 90 Pulse Strength Respiratory Rate 16 Respiratory Effort Respiratory Depth Respiratory Pattern Blood Pressure 129/78 H Blood Pressure Mean 95 Blood Pressure Source Monitor Blood Pressure Position Semi-Fowlers Blood Pressure Location Left Arm Pulse Ox 99 Oxygen Delivery Method Room Air Weight Weight: 153 lb 14.122 oz Body Mass Index (BMI) 22.7 Physical Exam Narrative General -A&Ox3, NAD, appears stated age. Vital signs stable, afebrile. Respiratory -normal work of breathing, no intercostal retractions. CV -pulses regular, brisk capillary refill ×4 limbs. Abdomen-soft, nontender, nondistended. No guarding, rigidity, rebound tenderness. Musculoskeletal/neurologic -full range of motion nontender throughout bilateral lower extremities, right upper extremity. Left upper extremity: Focal wrist brace in place, removed. No gross deformity. Minimal swelling noted in the left wrist there is swelling noted along the metacarpal heads and minimally into the digits. Brisk Apley refill in the fingertips. Cardinal motions of the left hand are intact. Focal tenderness of the left distal radius. Skin intact without lacerations or abrasions. Compartment soft and compressible. Lab / Micro Data 11/12/25 05:55 04/04/25 05:55 Labs: Laboratory Results - last 24 hr 04/04/25 05:55: WBC 5.2, RBC 4.11 L, Hgb 12.4 L, Hct 36.6 L, MCV 89.1, MCH 30.2, MCHC 33.9, RDW Std Deviation 42.1, RDW Coeff of Rishi 13.0, Plt Count 206, MPV 9.0, Immature Gran % (Auto) 0.400, Neut % (Auto) 66.4, Lymph % (Auto) 18.3 L, M [place] % (Auto) 11.0 H, Eos % (Auto) 3.1, Baso % (Auto) 0.8, Absolute Neuts (auto) 3.5, Absolute Lymphs (auto) 0.95, Nucleated RBC % 0, Sodium 139, Potassium 4.0, Chloride 105, Carbon Dioxide 24.2, Anion Gap 10, BUN 17, Creatinine 0.83, Estim Creat Clear Calc 82.93, Est GFR (MDRD) Non-Af 95, BUN/Creatinine Ratio 19.9, G lucose 103 H, Calcium 8.8 Assessment & Plan Assessment/Plan (1) Nondisplaced fracture of distal end of left radius: PLAN: Patient seen and examined. X-rays reviewed. Recommended nonsurgical treatment. Appears comfortable in the brace and recommended maintaining this. He is okay to remove it to shower when he does go home but encouraged him to keep the wrist from moving while it is out of the brace. Follow-up at [facility] in 1 week for repeat x-rays and consideration application of cast versus continued bracing. Ice and elevation encouraged. His wedding ring was removed at bedside today without evidence of digital ischemia. I discussed with nursing staff that he may use a platform walker due to concerns of unsteadiness. I will sign off. Please not hesitate to call if any questions or concerns arise. Thank you for this consultation.
[2025-04-04] MEDS: 0.9% Saline Lock 10 ML Syringe IV (20:56)
[2025-04-04 21:00] VITALS: BP 142/79; PULSE 95; RESP 16; TEMP 36.8; O2SAT 96
[2025-04-05] VITALS (12 sets, daily range): BP systolic 85–157; BP diastolic 62–96; PULSE 67–111; RESP 16–20; TEMP 36.2–36.7; O2SAT 96–98
[2025-04-05 06:00] LABS: Hematocrit 36.8 % (40-54); Hemoglobin 12.3 g/dL (13.0-16.5); Immature Granulocytes Count 0.010 X10^3/uL (0.0-0.0); Mean Corp Hgb Conc 33.4 g/dL (32-36); Mean Corpuscular Volume 88.2 fL (80-94); Mean Platelet Vol. 8.9 fl (6.2-12.0); NRBC Flagged by Analyzer 0 % (0-5); Platelet Count 232 K/mm3 (150-450); RBC Distribution Width CV 12.9 % (11.6-14.6); RBC Distribution Width SD 42.1 fl (35.1-43.9); Red Blood Count 4.17 M/mm3 (4.6-6.2); White Blood Count 4.7 K/mm3 (4.4-11.0)
[2025-04-05 06:27] LABS: Anion Gap 8 (5-15); BUN 17 mg/dL (4-19); BUN/Creat Ratio 20.7 RATIO (10-20); Calcium,Total 9.1 mg/dL (7.6-11.0); Carbon Dioxide 24.8 mmol/L (21.0-32.0); Chloride 106 mmol/L (98-108); Estimated Creatinine Clearance 83.94 ml/min (50-250); Glucose 99 mg/dL (70-99); Potassium 4.0 mmol/L (3.3-5.1)
[2025-04-05] MEDS: buPROPion (XL) 300 MG TABLET.XL PO (08:29)
[2025-04-05] MEDS: 0.9% Normal Saline (1000mL) 1,000 ML 150 ML IV ×2 (09:54→16:38)
--- NOTE | 2025-04-05 16:09 | PN_ITS ---
Subjective Subjective Patient was seen and examined this morning with his nurse by his bedside. His was by his bedside. He had no active complaints. Orthopedics reviewed him yesterday and recommended conservative management of his wrist fracture. Plan was to hopefully discharge patient today but he got dizzy and lightheaded when he tried to get up to go to the bathroom. Orthostatics remain positive. Patient therefore being hydrated with IV fluids and being started on fludrocortisone to help with orthostatic hypotension. Objective Data Objective Data Vital Signs: Vital Signs Temp Pulse Resp BP Pulse Ox O2 Del Method 97.6 F L 88 16 112/74 97 Room Air 04/05/25 15:32 04/05/25 15:32 04/05/25 15:32 04/05/25 15:32 04/05/25 15:32 04/05/25 15:32 Oxygen Delivery Method Room Air Weight: 153 lb 14.122 oz Body Mass Index (BMI) 22.7 Intake & Output: Intake and Output for Last 24 Hours 04/03/25 04/04/25 04/05/25 23:59 23:59 23:59 Intake Total 1560 / 1560 700 / 700 250 / 250 Output Total 950 / 950 Balance 610 / 610 700 / 700 250 / 250 Lab / Micro Data 04/05/25 05:20 04/05/25 05:20 Labs: Laboratory Results - last 24 hr 04/05/25 03:31: POC Glucose 104 04/05/25 05:20: WBC 4.7, RBC 4.17 L, Hgb 12.3 L, Hct 36.8 L, MCV 88.2, MCH 29.5, MCHC 33.4, RDW Std Deviation 42.1, RDW Coeff of Rishi 12.9, Plt Count 232, MPV 8.9, Immature Gran % (Auto) 0.200, Neut % (Auto) 65.6, Lymph % (Auto) 18.9 L, M adele % (Auto) 11.5 H, Eos % (Auto) 3.2, Baso % (Auto) 0.6, Absolute Neuts (auto) 3.1, Absolute Lymphs (auto) 0.89, Nucleated RBC % 0, Sodium 139, Potassium 4.0, Chloride 106, Carbon Dioxide 24.8, Anion Gap 8, BUN 17, Creatinine 0.82, Estim Creat Clear Calc 83.94, Est GFR (MDRD) Non-Af 95, BUN/Creatinine Ratio 20.7 H, Glucose 99, Calcium 9.1 Physical Exam Const alert and oriented x3 General Appearance: cooperative HEENT normocephalic, head/scalp atraumatic, hearing grossly normal bilaterally and moist oral mucous membranes Eyes EOMs intact bilaterally and conjunctivae normal Neck supple and no JVD Resp normal respiratory effort, normal air movement, no use of accessory muscles and clear to auscultation bilaterally Cardio regular rate, regular rhythm, S1 normal heart sound, S2 normal heart sound and no murmurs GI normal to inspection, nondistended, normoactive bowel sounds, soft to palpation, non-tender and non-distended Extremity Extremity Narrative: left wrist is in a brace, swelling and erythema have improved. General Extremity: no tenderness to palpation of joints or extremities Skin General Skin Exam: no breakdown Neuro oriented x3, moves all extremities and no focal motor deficits Sensorium / Orientation: awake and alert Psych cooperative Psych Narrative: flat affect Assessment & Plan Assessment/Plan (1) Laceration of eyebrow, left: (2) Loss of consciousness: (3) Syncope: PLAN: Plan #Syncope with resultant mechanical fall * CT brain showed no acute intracranial pathology. CTA head and neck showed no hemodynamically significant stenosis * he sustained a left eyebrow laceration with resultant periorbital hematoma. Eyebrow laceration was sutured. * Abdominal pelvic CT and chest x-ray as well as cervical spine CT and shoulder x-ray did not show any acute pathology. * MRI of the brain showed no acute pathology and just showed some left mastoiditis. EEG was normal * neurology on board; appreciate rec's. * Orthostatics are still positive today so patient being hydrated with iVF. * will start on fludrocortisone to help with orthostatic hypotension. so patient hydrated with IV fluids. * 2D echo showed EF of 65% with no acute wall motion abnormalities. * fall precautions * * #Left wrist fracture * Patient complained of pain and swelling in the left wrist yesterday. X-ray done showed nondisplaced fracture of the distal radius with intra-articular extension and minimal fracture of the ulnar styloid * Orthopedic surgery consulted reviewed patient and recommended conservative management for now. * in a left wrist in a brace. PT OT on board. On p.o. Tylenol, oxycodone and IV morphine as needed for pain * per ortho, to use a platform walker at home on discharge. * #Hyperlipidemia: on high intensity statin #Depression: on mirtazapine and venlafaxine #BPH: on flomax DVT prophylaxis: SCDs. No anticoagulation o/a of periorbital hematoma Code status: full code * Disposition: Anticipate discharge home tomorrow once orthostatics improved and resolved Charges/Coding Visit Charges Inpatient E&M: 74604 Subs Hosp L2
[2025-04-05] MEDS: 0.9% Saline Lock 10 ML Syringe IV ×2 (22:11→23:21)
[2025-04-06 03:30] VITALS: BP 153/87; PULSE 80; RESP 16; TEMP 36.5; O2SAT 97
[2025-04-06 04:23] LABS: Hematocrit 34.5 % (40-54); Hemoglobin 11.6 g/dL (13.0-16.5); Immature Granulocytes Count 0.010 X10^3/uL (0.0-0.0); Mean Corp Hgb Conc 33.6 g/dL (32-36); Mean Corpuscular Volume 88.9 fL (80-94); Mean Platelet Vol. 8.8 fl (6.2-12.0); NRBC Flagged by Analyzer 0 % (0-5); Platelet Count 226 K/mm3 (150-450); RBC Distribution Width CV 12.9 % (11.6-14.6); RBC Distribution Width SD 41.9 fl (35.1-43.9); Red Blood Count 3.88 M/mm3 (4.6-6.2); White Blood Count 5.3 K/mm3 (4.4-11.0)
[2025-04-06 06:04] LABS: Anion Gap 8 (5-15); BUN 17 mg/dL (4-19); BUN/Creat Ratio 19.4 RATIO (10-20); Calcium,Total 8.7 mg/dL (7.6-11.0); Carbon Dioxide 23.9 mmol/L (21.0-32.0); Chloride 108 mmol/L (98-108); Estimated Creatinine Clearance 80.04 ml/min (50-250); Glucose 96 mg/dL (70-99); Potassium 3.7 mmol/L (3.3-5.1)
--- NOTE | 2025-04-06 09:20 | CASEMGMT ---
RN DANIELA Face to Face with patient for initial transition planning/care coordination assessment. RN CM introduced self and role at [facility]. Patient sitting in chair, alert and oriented, at bedside. Patient willing to participate in assessment and is able to answer all questions appropriately. Care providers, pharmacy, and demographics verified. Strata: 2 PCP: [facility] Specialists: Brad, pattern attendant; Dania, urologsit; Sher, psychologist Preferred Pharmacy: [facility] Insurance: [facility] Prescription Benefit: yes Living Will/HPOA: none LNOK: , Tiffanie Richter Living Arrangements: Patient lives with in a 2 story home. Patient was independent and able ambulate stairs prior to admission. Transportation: self, DME/HHC: Patient has raised toilet and cane at home. No previous HHC or SNF. Patient wishes to discharge home, therapy in room and recommending outpatient thearpy at discharge. Patient and prefer [facility] and request script be faxed to [facility] to assist with getting script for outpatient therapy. Patient states he has no further needs or concerns at this time. CM to follow for discharge planning needs that may arise. Disposition Plan: Patient to discharge home with outpatient therapy, family support, and follow-up plans in place. Arabella GARCIA, RN, CM
[2025-04-06 09:29] VITALS: BP 157/93; PULSE 87; RESP 16; TEMP 36.6; O2SAT 99
[2025-04-06 09:30] VITALS: BP 128/85; BP 157/93; BP 90/74; PULSE 104; PULSE 89; PULSE 97
[2025-04-06] MEDS: buPROPion (XL) 300 MG TABLET.XL PO (09:40)
[2025-04-06] MEDS: 0.9% Normal Saline (1000mL) 1,000 ML 999 ML IV (10:27)
[2025-04-06 11:54] VITALS: BP 130/77; BP 141/81; BP 141/83; PULSE 88; PULSE 89; PULSE 90
--- NOTE | 2025-04-06 14:06 | DCINST_ITS ---
Discharge Instructions DC O2, CPAP, BIPAP needs Home O2 Discharge instructions: No Dressing / Incision Discharge Activity: Return to Normal Activity Weight Bearing Status: Weight bearing as tolerated Dressing / Incision Call your doctor if you observe: Fever of 101 or Higher, Shortness of breath, Dizziness, Swelling in the ankles, Chest pain and Uncontrolled pain Follow Up Care Test Results: Test results from this visit will be discussed in further detail at your follow- up appointment, if applicable. Discharge Plan Admission Admit Date/Time: 04/02/25 16:30 Primary Reason for Your Visit: mechanical fall, orthostatic hypotension Attending Provider: Tamar Syed Primary Care Provider: Yrn Macedo Consulting Providers: Abran Duarte; Francia Scruggs; Elma Montero; Rupert Yepez; Brenton Ward; Anthony Stanford; CARRIE PEARL; Iveth Butt; Beata Seth; Jim Cardoso; Teressa King; Matt Barbosa Instructions Patient Instructions: Orthostatic Hypotension, ED Fall Prevention, ED FALL-from [id number] Additional Instructions / Restrictions: Keep a BP log at home. Check your blood pressure every morning and evening present BP log to PCP to adjust meds as needed. Use platform walker as recommended by orthopedics. Wear thigh high KENNA stockings to help with orthostatic hypotension. Rise from lying to sitting then standing positions carefully due to orthostatic hypotension. Discharge Orders/Prescriptions Prescriptions: New oxycodone 5 mg Tablet 5 mg PO Q4H PRN PRN (Reason: Pain Score 4-10) 3 Days Qty: 18 0RF fludrocortisone 0.1 mg tablet 0.1 mg PO DAILY Qty: 30 2RF amlodipine 10 mg tablet 10 mg PO DAILY Qty: 30 2RF (DME) sharan.stocking,knee,reg,smal [T.E.D. Anti-Embolism Stocking] Misc See Rx Instructions .Route Qty: 24 1RF Rx Instructions: As directed Continued multivitamin [Multiple Vitamins] 1 EACH tablet 1 ea PO DAILY venlafaxine 150 mg capsule,extended release 24hr 300 mg PO DAILY Patient Comments: TAKE 2 CAPSULES BY MOUTH DAILY mirtazapine 45 mg tablet 45 mg PO QHS Patient Comments: TAKE 1 TABLET BY MOUTH AT BEDTIME rifuxjqv-kesv-nrmhr-oreg-capry 100 mg-150 mg- 50 mg-150 mg Capsule 1 cap PO DAILY atorvastatin 10 mg tablet 10 mg PO DAILY tamsulosin 0.4 mg capsule 0.4 mg PO QHS bupropion HCl 150 mg tablet extended release 24 hr 300 mg PO DAILY Referrals / Follow Up: Yrn Macedo MD [Primary Care Provider, Family Practice] - Within 1 Week Matt Barbosa DO [Med Staff - Active Staff, Orthopedics] - Within 2 Weeks Disposition Disposition (needs filled in before D/C Order can be placed): Home, Self Care
--- NOTE | 2025-04-06 14:11 | DS.PCM_ITS ---
Providers Date of Admission: 04/02/25 Date of Discharge: 04/06/25 Primary Care Physician: Dr. Yrn Macedo MD Consultations 04/01/25 09:48 Neurology [Consult: Tele-Neurology] Routine Consulting Provider: [facility] Reason for Consult: syncope, concern for seizure EMERGENT Consult: No Notified: Yes Date Notified: 04/01/25 Time Notified: 10:11 Method of Notification: Answering Service Nursing Unit Staff Notify [facility] of Tele-Neurology Consult: Yes 04/03/25 07:57 Consult: Orthopedics Routine Consulting Provider: Matt Barbosa Reason for Consult: left distal radius fracture with intra acrticular extension EMERGENT Consult: No Notified: Yes Date Notified: 04/03/25 Time Notified: 07:57 Method of Notification: Text Reason For Visit: SYNCOPE Diagnosis Discharge Diagnosis (1) Laceration of eyebrow, left: Status: Acute Code(s): S01.112A - Laceration without foreign body of left eyelid and periocular area, initial encounter (2) Loss of consciousness: Status: Acute Code(s): R40.20 - Unspecified coma (3) Syncope: Status: Acute Code(s): R55 - Syncope and collapse Plan #Syncope with resultant mechanical fall * CT brain showed no acute intracranial pathology. CTA head and neck showed no hemodynamically significant stenosis * he sustained a left eyebrow laceration with resultant periorbital hematoma. Eyebrow laceration was sutured. * Abdominal pelvic CT and chest x-ray as well as cervical spine CT and shoulder x-ray did not show any acute pathology. * MRI of the brain showed no acute pathology and just showed some left mastoiditis. EEG was normal * neurology on board; appreciate rec's. * Orthostatics are still positive today so patient being hydrated with iVF. * will start on fludrocortisone to help with orthostatic hypotension. so patient hydrated with IV fluids. * 2D echo showed EF of 65% with no acute wall motion abnormalities. * fall precautions * * #Left wrist fracture * Patient complained of pain and swelling in the left wrist yesterday. X-ray done showed nondisplaced fracture of the distal radius with intra-articular extension and minimal fracture of the ulnar styloid * Orthopedic surgery consulted reviewed patient and recommended conservative management for now. * in a left wrist in a brace. PT OT on board. On p.o. Tylenol, oxycodone and IV morphine as needed for pain * per ortho, to use a platform walker at home on discharge. * #Hyperlipidemia: on high intensity statin #Depression: on mirtazapine and venlafaxine #BPH: on flomax DVT prophylaxis: SCDs. No anticoagulation o/a of periorbital hematoma Code status: full code * Disposition: Anticipate discharge home tomorrow once orthostatics improved and resolved Medications at Discharge Home Medications multivitamin (Multiple Vitamins tablet) 1 ea PO DAILY vitamin 01/12/18 mirtazapine 45 mg tablet 45 mg PO QHS mental health 05/04/22 turmeric 100 mg-betty 150 mg-olive 50 mg-oreg 150 mg-capryl capsule 1 cap PO DAILY supplement 05/04/22 venlafaxine 150 mg capsule,extended release 24 hr 300 mg PO DAILY mental health 05/04/22 atorvastatin 10 mg tablet 10 mg PO DAILY cholesterol 04/01/25 bupropion HCl 150 mg 24 hr tablet, extended release 300 mg PO DAILY mental health 04/01/25 tamsulosin 0.4 mg capsule 0.4 mg PO QHS prostate 04/01/25 amlodipine 10 mg tablet 10 mg PO DAILY #30 tabs 04/06/25 sharan.stocking,knee,reg,smal (T.E.D. Anti-Embolism Stocking) #24 ea 04/06/25 fludrocortisone 0.1 mg tablet 0.1 mg PO DAILY #30 tabs 04/06/25 oxycodone 5 mg tablet 5 mg PO Q4H PRN PRN Pain Score 4-10 3 days #18 tabs 04/06/25 Hospital Course Operations None Procedures 2-D Echocardiogram Summary of Care Provided Minutes Spent on Discharge: 45 Hospital Course: CRISSY SALGADO, is a 69 M with a PMH as outlined who presents via the ED on 04/01/2025 with a complaitn of mechanical fall. He got up in the middle of the night to go to the bathroom. HE was found at the bottom of the stairs and his said she heard him fall. When his found him, his head and neck were pressed up against the wall and was not very responsive to his . Patient could not remember what happened.Per his , he was on several psych meds for anxiety and depression and said the meds had recently been discontinued due to patient being unstable on his feet and leaning whilst ambulating. Patient was not on any anticoagulation and said he had been noted to be having some tremors of his extremities for several months now. Review of systems was otherwise negative. Vitals in the ED at time of review were BP of 141/86, MN of 87, RR of 22 and oxygen sats of 99% on room air. CBC showed wbc of 5.7, Hb of 14.3 and platelets of 250. INR was 1. Chemistry showed sodium of 141 potassium of 4.3 and bicarb of 22. Creatinine was 1.01. Lactic acid was 2.4 and total bilirubin was 0.22. Initial troponin was 13 and delta troponin was pending. Urinalysis showed no evidence of UTI EKG showed no acute ST changes and showed normal sinus rhythm. Serum alcohol level was less than 10. Urine tox was not done. Chest x-ray showed no acute cardiopulmonary pathology and CT of the abdomen and pelvis showed no acute abdominopelvic injuries with bilateral kidney stones with largest measuring 7 mm at the lower pole of the right kidney. CT brain showed no acute intracranial abnormalities and no acute injury to the cervical spine. Cervical spine CT showed no acute intracranial abnormalities and no acute injury to the cervical spine, and showed degenerative changes predominantly at C4-C5 where there is disc space narrowing, vertebral hypertrophy and severe bilateral foramina stenosis and moderate canal stensosis and left C5-C6 facet point arthropathy with corresponding severe foraminal stenosis. CTA chest showed no acute cardiopulmonary pathology and shoulder xray was also unremarkable. HE was admitted to be managed for syncope and mechanical fall. He had MRI of the brain showed showed no evidence of any seizure. Orthostatics were positive and he was hydrated with IVF. Xray of the left wrist done due to right wrist pain and swelling showed a nonsdisplaced left distal radial fracture. His wrist was placed in a brace and orthopedic surgery was consulted. Orthopedic surgery recommended conservative management and maintenance of the wrist in the brace. He was started on oral fludrocortisone to help with the orthostatics, and also placed on thigh high KENNA stockings. He remained stable and was discharged home with a platform walker on 04/06/2025. HE is to follow up with her PCP and orthopedic surgeon within 1-2 weeks. He was given a prescription for p.o. oxycodone 5 mg every 4 hours as needed for total of 18 tablets for 3 days. OARRS score was checked and no red flags were seen. Of note patient's blood pressure was also elevated going up into the 150s and 160s systolic. He was therefore discharged on p.o. amlodipine 10 mg daily. Patient seen and examined prior to discharge. He had no active complaints. Review of systems is otherwise negative. Labs and vitals reviewed. Home meds reviewed and reconciled. Physical Exam Const alert and oriented x3 General Appearance: cooperative and comfortable Orientation / Consciousness: lethargic HEENT normocephalic, head/scalp atraumatic, hearing grossly normal bilaterally and moist oral mucous membranes HEENT Narrative: laceration over left eyebrow is healing well Eyes EOMs intact bilaterally and conjunctivae normal Neck supple and no JVD Resp normal respiratory effort, normal air movement, no use of accessory muscles and clear to auscultation bilaterally Cardio regular rate, regular rhythm, S1 normal heart sound, S2 normal heart sound and no murmurs GI normal to inspection, nondistended, normoactive bowel sounds, soft to palpation, non-tender and non-distended Extremity normal to inspection, full ROM, normal capillary refill and no clubbing, cyanosis or edema Extremity Narrative: left wrist is in a brace, swelling and erythema have improved. General Extremity: no tenderness to palpation of joints or extremities Skin no rashes or lesions noted General Skin Exam: no breakdown Neuro oriented x3, moves all extremities and no focal motor deficits Sensorium / Orientation: awake and alert Psych cooperative Psych Narrative: flat affect Weight / BMI Weight Weight: 153 lb 14.122 oz Body Mass Index (BMI) 22.7 ABG / Lab / Microbiology Data 04/06/25 03:50 04/06/25 03:50 Laboratory: Laboratory Results - last 24 hr 04/06/25 03:50: WBC 5.3, RBC 3.88 L, Hgb 11.6 L, Hct 34.5 L, MCV 88.9, MCH 29.9, MCHC 33.6, RDW Std Deviation 41.9, RDW Coeff of Rishi 12.9, Plt Count 226, MPV 8.8, Immature Gran % (Auto) 0.200, Neut % (Auto) 65.3, Lymph % (Auto) 19.8, [place] % (Auto) 11.3 H, Eos % (Auto) 2.8, Baso % (Auto) 0.6, Absolute Neuts (auto) 3.5, Absolute Lymphs (auto) 1.05, Nucleated RBC % 0, Sodium 140, Potassium 3.7, Chloride 108, Carbon Dioxide 23.9, Anion Gap 8, BUN 17, Creatinine 0.86, Estim Creat Clear Calc 80.04, Est GFR (MDRD) Non-Af 94, BUN/Creatinine Ratio 19.4, Glucose 96, Calcium 8.7 D/C Instructions Discharge Activity: Return to Normal Activity Weight Bearing Status: Weight bearing as tolerated Call your doctor if you observe: Fever of 101 or Higher, Shortness of breath, Dizziness, Swelling in the ankles, Chest pain and Uncontrolled pain DC O2, CPAP, BIPAP Needs Home O2 Discharge instructions: No DC home with Oxygen: No Meaningful Use Info Meaningful Use Meaningful Use Diagnoses (Choose all that apply): None applicable Discharge Plan Admission Admit Date/Time: 04/02/25 16:30 Primary Reason for Your Visit: mechanical fall, orthostatic hypotension Attending Provider: Tamar Syed Primary Care Provider: Yrn Macedo Consulting Providers: Abran Duarte; Francia Scruggs; Elma Montero; Rupert Yepez; Brenton Ward; Anthony Stanford; CARRIE PEARL; Iveth Butt; Beata Seth; Jim Cardoso; Teressa King; Matt Barbosa Instructions Patient Instructions: Orthostatic Hypotension, ED Fall Prevention, ED FALL-from [id number] Additional Instructions / Restrictions: Keep a BP log at home. Check your blood pressure every morning and evening present BP log to PCP to adjust meds as needed. Use platform walker as recommended by orthopedics. Wear thigh high KENNA stockings to help with orthostatic hypotension. Rise from lying to sitting then standing positions carefully due to orthostatic hypotension. Discharge Orders/Prescriptions Prescriptions: New oxycodone 5 mg Tablet 5 mg PO Q4H PRN PRN (Reason: Pain Score 4-10) 3 Days Qty: 18 0RF fludrocortisone 0.1 mg tablet 0.1 mg PO DAILY Qty: 30 2RF amlodipine 10 mg tablet 10 mg PO DAILY Qty: 30 2RF (DME) sharan.stocking,knee,reg,smal [T.E.D. Anti-Embolism Stocking] Misc See Rx Instructions .Route Qty: 24 1RF Rx Instructions: As directed Continued multivitamin [Multiple Vitamins] 1 EACH tablet 1 ea PO DAILY venlafaxine 150 mg capsule,extended release 24hr 300 mg PO DAILY Patient Comments: TAKE 2 CAPSULES BY MOUTH DAILY mirtazapine 45 mg tablet 45 mg PO QHS Patient Comments: TAKE 1 TABLET BY MOUTH AT BEDTIME yutlffwg-zqvk-pvkky-oreg-capry 100 mg-150 mg- 50 mg-150 mg Capsule 1 cap PO DAILY atorvastatin 10 mg tablet 10 mg PO DAILY tamsulosin 0.4 mg capsule 0.4 mg PO QHS bupropion HCl 150 mg tablet extended release 24 hr 300 mg PO DAILY Referrals / Follow Up: Yrn Macedo MD [Primary Care Provider, Family Practice] - Within 1 Week Matt Barbosa DO [Med Staff - Active Staff, Orthopedics] - Within 2 Weeks Disposition Disposition (needs filled in before D/C Order can be placed): Home, Self Care Charges/Coding Visit Charges Inpatient E&M: 78457 Disch Hosp >30min
--- NOTE | 2025-04-06 14:45 | PHA.DC.MC.R ---
Pharmacy [facility] Counseling Pharmacy Service has performed discharge medication reconciliation and counseling for this patient. The patient's discharge medication list was reviewed for discrepancies and discrepancies were resolved. The patient was counseled on the following discharge medications and changes in medications for homegoing were reviewed. The Reason for Use, instructions for use, and potential side effects were reviewed for all new medications. The patient's questions regarding all of their medications were answered. 1. Fludrocortisone 0.1 mg PO daily 2. Amlodipine 10 mg PO daily 3. Oxycodone 5 mg PO Q4H PRN pain (4-10/10) The patient was able to verbally demonstrate an understanding of their discharge medications. The patient was counselled on new medications by registered pharmacy technician Stuart. Medications at Discharge Home Medications multivitamin (Multiple Vitamins tablet) 1 ea PO DAILY vitamin 01/12/18 mirtazapine 45 mg tablet 45 mg PO QHS mental health 05/04/22 turmeric 100 mg-betty 150 mg-olive 50 mg-oreg 150 mg-capryl capsule 1 cap PO DAILY supplement 05/04/22 venlafaxine 150 mg capsule,extended release 24 hr 300 mg PO DAILY mental health 05/04/22 atorvastatin 10 mg tablet 10 mg PO DAILY cholesterol 04/01/25 bupropion HCl 150 mg 24 hr tablet, extended release 300 mg PO DAILY mental health 04/01/25 tamsulosin 0.4 mg capsule 0.4 mg PO QHS prostate 04/01/25 amlodipine 10 mg tablet 10 mg PO DAILY #30 tabs 04/06/25 sharan.stocking,knee,reg,smal (T.E.D. Anti-Embolism Stocking) #24 ea 04/06/25 fludrocortisone 0.1 mg tablet 0.1 mg PO DAILY #30 tabs 04/06/25 oxycodone 5 mg tablet 5 mg PO Q4H PRN PRN Pain Score 4-10 3 days #18 tabs 04/06/25
--- NOTE | 2025-04-06 14:49 | CASEMGMT ---
ANKIT SUAREZ received script for outpatient therapy and faxed to [facility] with request for [facility] to call to schedule appointment. ANKIT SUAREZ placed script in discharge packet with [facility] information.
[2025-04-06 15:43] VITALS: BP 160/85; PULSE 93; RESP 16; O2SAT 97
== END 2025-04-06 16:17 | disposition home or self-care (01) | DRG 312 ==
LOC: ED 08:14 → PCU 08:25
PROVIDERS: Admitting Provider Student in an Organized Health Care Education/Training Program; Emergency Provider Specialist/Technologist Athletic Trainer; PCP Family Medicine; Visit Provider Student in an Organized Health Care Education/Training Program
DX: R55 Syncope and collapse (principal); S52.572A Other intraarticular fracture of lower end of left radius, initial encounter for closed fracture; H70.92 Unspecified mastoiditis, left ear; Z66 Do not resuscitate; F32.A Depression, unspecified; S01.112A Laceration without foreign body of left eyelid and periocular area, initial encounter; S05.12XA Contusion of eyeball and orbital tissues, left eye, initial encounter; E78.5 Hyperlipidemia, unspecified; W10.9XXA Fall (on) (from) unspecified stairs and steps, initial encounter; Z79.899 Other long term (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; F41.1 Generalized anxiety disorder; N40.0 Benign prostatic hyperplasia without lower urinary tract symptoms; Y92.019 Unspecified place in single-family (private) house as the place of occurrence of the external cause
CPT/HCPCS: 36415; 51702; 70450; 70553; 71045; 71275; 72125; 73030; 73130; 74177; 80048; 80053; 81001; 82077; 82962; 83605; 83880; 84484; 85025; 85610; 85730; 90715; 93005; 93306; 95819; 97116; 97162; 97166; 97530; 97802; 97803; 99285; A9575; Q9967; A4216

== ENCOUNTER 2025-05-04 13:00 | Outpatient (RCR) | payer MEDICARE, SELFPAY ==
--- NOTE | 2025-04-25 07:22 | HP.OTEVAL_ITS ---
Patient's Visit Information Visit Information Visit Information: CRISSY SALGADO is a 69 year old M, referred to Occupational Therapy by Dr. Tamar Syed MD, with a diagnosis of weakness/ left distal radius fx. Date of Evaluation: 04/24/25 Occupational Therapist: Rowena Wilkinson, CHIP/Bandar, CHT Subjective Subjective: This 69 year old male was seen for OT eval with dx of weakness, syncope collapse and falls. Pt had a fall on 2024. pt does not remember why he got up out of bed - and his heard a noise and found him at the bottom of the stairs. pt was transported to the ER. Pt was placed in soft splint on 2024. pt currently on has brace on left wrist due to right distal inter artic distal radius fx. pt is right handed currently unable to use left hand. pt is active in a health and wellness program at least 2-3x a week. pt states he is doing better but as he does not remember falling down the stairs they are taking precautions making sure the bedroom door is closed and putting up a gate at the stairs. pt ambulated without adaptive devices. pt would like to improve his balance to decrease his fall risk. Pain left wrist: Current Pain Intensity: 2 Pain Intensity Range: 4 and 6 ROM Forearm: right WNL left NT Wrist: right WNL left NT ROM Comments: left will be tested at later date as pt is only 3 weeks and 2 days from [facility] Strength Shoulder: right 16.5# left NT Elbow: triceps right 17# biceps 22# left NT Commodity Merchant: right 50# left NT Lateral Pinch: right 10# left NT Tripod Pinch: right 16# left NT Sensation Sensation Comments: left hand some tingling of left thumb Quick DASH-Disab of Arm,Shoulder& Hand Quick DASH Score: 70.4525 Goals Goal:ROM equal to unaffected hand: Yes Goal:Commodity Merchant/Pinch strength at least 75% of unaffected hand: Yes Goal:No pain with affected hand use: Yes Goal:Full use of affected hand in daily activities including work: Yes Rehabilitation General Assessment: pt demo need for skilled OT services at this time for his left wrist. Therapy will initiate when he is cleared by the orthopedic group. Pt would benefit 2x week for 4 weeks to improve pts ROM and strength to return pt to IND use of left UE with ADLs and home mtg. tasks. Today therapist ed. pt w ould work with PT to improve balance and once cleared by Ortho we would schedule OT. pt and pts demo understanding and agree to POC. Rehabilitation Potential: Good Anticipated Interventions Anticipated Interventions: A/AAROM/PROM, Strengthening, Triggerpoint Release, Modalities, Orthoses, Joint Protection/Energy Conservation, Ergonomic Education, Fine Motor Coord/Amadou, Education re assistive Equipment, Education re Diagnosis, Caregiver Training and Home Program Visit Plan Frequency: 1-2x /Week Duration: 4 Weeks TEXT: Thank you for the opportunity to evaluate your patient. For Medicare and Medicare HMO plans, please review the plan of care and approve it. It will need to be FAXED BACK to us at [phone] for Medicare purposes. Please let me know if there are questions or concerns regarding this plan of care. Physician Signature: Date:
--- NOTE | 2025-04-25 15:50 | HP.PTEVAL ---
Patient's Visit Information Visit Information Visit Information: CRISSY SALGADO is a 69 year old M referred to Physical Therapy by Dr. Tamar Syed MD with a diagnosis of syncope with fall. Date of Evaluation: 04/24/25 Physical Therapist: Todd Galvez DPT Visit Plan Frequency: 2x /Week Duration: 4 Weeks Plan: High level Balance Subjective Subjective: Pt. is here today for his initial evaluation with diagnosis of syncope with fall. Pt. fell down his stairs in the early AM. Pt. reports overall doing much better, but he has noticed some tremoring in his hand an leg. He reports no falls since going home. Pt. was using a cane, but is no longer using one. He did have a L wrist fracture and is currently braced. Pt. is not driving currently. He is hopeful to improve his balance and stability in order to get back to all recreational activities and get back to gym without issues. He does have an underlying nystagmus in his eyes, but reports this is from . Pt. is a little hesitant to do the stairs at home as well. Objective Objective: POSTURE: Pt. has normal posture in stance. Pt. has no lateral shift. Pt. has normal ABHIJIT. PALPATION: No issues. NEURO: Normal throughout. ROM: LUMBAR SPINE: normal, BLES: normal. MMT: 5-/5 throughout BLEs, core strength: fair. gait: Pt. ambulates well without AD, slight deviation form path at times. STAIRS: normal with 1 HR, slight decreased functional strength with descending. TU.1sec no AD FGA 25/30. Difficulty with narrow ABHIJIT and with eyes closed. Balance/Special Test Scores Lower Extremity Functional Score: 58 Goals Goal 1:: LTG: Pt. to have 30/30 on FGA indicating low fall risk. Goal Time Frame: 4-6 Weeks Goal 2:: LTG: Pt. to be I with all gym exercises without limitations. Goal Time Frame: 4-6 Weeks Goal 3:: LTG: Pt. to negotiate 1 flight of stairs without limitations with 1 HR and reciprocal pattern. Goal Time Frame: 4-6 Weeks Rehabilitation Potential Physical Therapy Diagnosis: Pt. has signs and symptoms consistent with syncope with fall. Pt. has some slight imbalance with high level testing and would benefit from PT to address the above limitations progressing back to all gym and dynamic mobility without issues. Rehabilitation Potential: Excellent Anticipated Interventions Patient/Client Instruction: Educate patient on: Condition, Plan of Care, Risk Factors and Benefits of Fitness Program For the Purpose of:: To foster healthy habits, To improve decision making, To facilitate caregiver knowledge, To improve self management, To prevent re-injury and To improve ability to perform tasks related to life management Therapeutic Exercise to Include: Strength training, Power training, Balance training, Agility training, Body mechanics and Gait and locomotor training For the Purpose of:: To improve nutrient delivery to tissue, To increase oxygenation perfusion, To improve muscle performance and motor function, To improve health of tissue, To decrease soft tissue restriction, To increase flexibility/ROM, To improve endurance, To improve balance and To improve safety with gait Text: Thank you for the opportunity to evaluate your patient. For Medicare and Medicare HMO plans, please review the plan of care and approve it. It will need to be FAXED BACK to us at [phone] for Medicare purposes. For Medicare only, by signing this I certify the plan of care. Please let me know if there are questions or concerns regarding this plan of care. Physician Signature: Date:
== END 2025-05-04 19:00 | disposition home or self-care (01) ==
LOC: PT 13:00
PROVIDERS: PCP Family Medicine; Referring Provider Student in an Organized Health Care Education/Training Program; Visit Provider Student in an Organized Health Care Education/Training Program
DX: R55 Syncope and collapse (principal); R53.1 Weakness; R29.6 Repeated falls; Z91.81 History of falling
CPT/HCPCS: 97110; 97161; 97166